=== PATIENT | female | born 2000 | race Caucasian/White ===

== ENCOUNTER 2022-06-16 08:46 | Outpatient (CLI) | payer MEDICAID, SELFPAY ==
[2022-06-16 10:43] LABS: Chloride* 105 mmol/L (96-114)
[2022-06-16 10:44] LABS: Albumin* 4.5 g/dL (3.3-5.0); Potassium* 4.7 mmol/L (3.6-5.1); Sodium* 140 mmol/L (135-149)
[2022-06-16 10:46] LABS: Cholesterol* 114 mg/dL (90-199)
[2022-06-16 10:47] LABS: Alanine Aminotransferase* 25 U/L (4-35); Alkaline Phosphatase* 57 U/L (40-150); Aspartate Amino Transferase* 20 U/L (12-35); Bilirubin Total* 0.7 mg/dL (0.1-1.5); Blood Urea Nitrogen* 15 mg/dL (5-24); Calcium* 9.1 mg/dL (8.4-10.6); Carbon Dioxide* 29 mmol/L (20-32); Creatinine* 0.6 mg/dL (0.5-1.5); Estimated Glomerular Filt Rate 131 ml/min; HDL Cholesterol* 37 mg/dL (>=50); LDL Cholesterol Calculated 58 mg/dL (<100); Triglycerides* 96 mg/dL (40-149)
[2022-06-16 11:03] LABS: Glucose* 88 mg/dL (60-115); Total Protein* 7.2 g/dL (6.0-8.3); Vitamin D 25 Hydroxy* 26 ng/mL (30-80)
[2022-06-16 11:17] LABS: TSH With Reflex to FT4* 0.488 uIU/mL (0.270-4.200)
[2022-06-16 11:21] LABS: Ferritin* 25.4 ng/mL (6.24-137.0)
[2022-06-16 11:37] LABS: Vitamin B12* 725 pg/mL (243-894)
== END 2022-06-16 08:47 | disposition home or self-care (01) ==
PROVIDERS: PCP Family Medicine; Visit Provider Family Medicine
DX: Z01.419 Encounter for gynecological examination (general) (routine) without abnormal findings (principal); R53.83 Other fatigue; D64.9 Anemia, unspecified; E55.9 Vitamin D deficiency, unspecified; D68.51 Activated protein C resistance
CPT/HCPCS: 80053; 80061; 82306; 82607; 82728; 84443

== ENCOUNTER 2022-11-22 10:24 | Outpatient (CLI) | payer MEDICAID, SELFPAY | END 2022-11-22 10:25 | disposition home or self-care (01) | LOC: NFLDREF 10:25 | PROVIDERS: PCP Family Medicine; Visit Provider Advanced Practice Midwife | DX: O20.0 Threatened abortion (principal) | CPT/HCPCS: 84702 ==

== ENCOUNTER 2023-05-06 14:06 | Outpatient (CLI) | payer MEDICAID, SELFPAY | END 2023-05-06 14:07 | disposition home or self-care (01) | PROVIDERS: PCP Family Medicine; Visit Provider Family Medicine | DX: R10.9 Unspecified abdominal pain (principal); R11.2 Nausea with vomiting, unspecified; D68.51 Activated protein C resistance; E55.9 Vitamin D deficiency, unspecified | CPT/HCPCS: 80053; 83516; 84443; 84703; 86364 ==

== ENCOUNTER 2023-05-23 10:08 | Outpatient (CLI) | payer MEDICAID, SELFPAY ==
--- OUTSIDE RECORDS SUMMARY | 2023-05-23 10:40 | XMS_ITS | Clinical Summary ---
Author Name Unknown Organization [facility] Address [place], [place] [address] Care Team Providers Care Oncology Radiation Physician Name Role Phone [place] Primary Care Provider Unavail able Allergies No known active allergies Medications Medication Sig Dispensed Refills Start Date End Date Status ondansetron (ZOFRAN) 4 mg tabletIndications:Rebeca lonephritis Take 2 Tablets (8 mg) by mouth every 8 hours if needed for Nausea/Vomiting. 10 Tablet 0 12/25/2021 Active omeprazole (PRILOSEC) 40 mg Delayed-Release capsule Take 40 mg by mouth. 0 06/07/2022 Active rizatriptan (MAXALT) 10 mg tablet Take 1 Tablet (10 mg) by mouth every 2 hours if needed for Migraine. Give at minimum 2hrs apart. Max Dose: 30mg per 24hrs. 12 Tablet 3 06/30/2022 Active Active Problems Problem Noted Date Diagnosed Date Frequent headaches 02/24/2019 Factor V Leiden 01/05/2011 Overview: Heterozygous Lactose intolerance 12/29/2010 Other acne 12/31/2009 Resolved Problems Problem Noted Date Diagnosed Date Resolved Date Abdominal pain, other specified site 01/05/2010 12/29/2010 WARTS, HAND 07/03/2003 12/29/2010 Encounters Date Type Department Care Team Description 03/25/2023 Lab Requisition [facility] [phone] Harmony Colon MD from Last 3 Months Immunizations Name Administration Dates Next Due DTaP 09/08/2004, 2,02/22/2001,12/23,2000 HIB PRP-OMP (PedvaxHIB) 11/22/2001,11/22,2000,10/12 HIB-HepB (Comvax) 11/22/2001,2000 HPV 9 (Gardasil 9) 02/20/2019 Hepatitis A (Peds) 11/17/2009,12/18/2008 Hepatitis B (Peds) 11/22/2001,2000, 001 Human Papilloma Virus Vaccine 12/25/2012 Inactivated Polio Vaccine 09/08/2004,,2000,10/12 Influenza, IIV3 (Age >=3 years) 03/15/2002 Influenza, IIV4 (=>6mos) MDV 02/19/2019 MMR 09/08/2004,11/22/2001 Meningococcal Vaccine (Menveo) 02/20/2019 Pneumococcal conj 7-Valent (Prevnar 7) 2,2000,2000 Tdap 12/25/2012 Varicella Vaccine 12/18/2008,10/03/2002 Family History Medical History Relation Name Comments Bipolar disorder Brother 1 [place] Thyroid Disease Brother 1 [place] Good Health Brother 2 [place] Good [facility] Father GI Disease Maternal Aunt 1 celiac disea se Blood Disease Maternal Aunt 2 Factor V Le iden deficiency GI Disease Maternal Aunt 3 celiac disea se Asthma Maternal Aunt 4 Factor V Lei den deficiency Other Maternal Grandfather Catarac ts and Glaucoma Blood Disease Maternal Grandmother Factor V leiden deficiency Cancer Maternal Grandmother lymphom a GI Disease Maternal Grandmother celiac disease Autoimmune disease Mother Blood Disease Mother Factor V Leide n GI Disease Mother celiac disease Relation Name Status Comments Brother 1 [place] Alive Brother 2 [place] Alive Father Maternal Aunt 1 Maternal Aunt 2 Maternal Aunt 3 Maternal Aunt 4 Maternal Grandfather Maternal Grandmother Mother Social History Tobacco Use Types Packs/Day Years Used Date Smoking Tobacco: Never Smokeless Tobacco: Never Tobacco Cessation:Counseling Given: Yes Comments:Mom smokes, but outside Alcohol Use Standard Drinks/Week Comments No 0 (1 standard drink = 0.6 oz pur e alcohol) PHQ-2 Answer Date Recorded PHQ-2 Score 1 02/20/2019 Social Connections Answer Date Recorded Frequency of Communication with Friends and Fami ly Not on file 06/30/2022 Sex and Gender Information Value Date Recorded Sex Assigned at Not on file Gender Identity Not on file Sexual Orientation Not on file Obstetrics History Para Term AB IAB SAB Ectopic Multiple Livin g Live Births 0 0 0 0 0 0 0 0 0 0 Last Filed Vital Signs Vital Sign Reading Time Taken Comments Blood Pressure 118/72 06/30/2022 2:37 PM [facility] Pulse 83 06/30/2022 2:37 PM [facility] Temperature 36.9 ??C (98.4 ??F) 12/25/2021 4:00 PM CD T Respiratory Rate 16 12/25/2021 4:00 PM CDT Oxygen Saturation 98% 12/25/2021 4:00 PM CDT Inhaled Oxygen Concentration - - Weight 52.2 kg (115 lb) 06/30/2022 2:37 PM [facility] Height 162.6 cm (5' 4) 12/25/2021 4:00 PM CDT Body Mass Index 19.74 12/25/2021 4:00 PM CDT Plan of Treatment Health Maintenance Due Date Last Done Comments COVID-19 vaccine series (#1) 02/21/2001 HIV for age 15-65 08/23/2015 Hepatitis C screening for ag e 18-79 2018 BMI (ht and wt on same day) for age 18+ 02/21/2020 02/20/2019, 01/31/2019 Depression screening for age 12+ 02/21/2020 02/20/2019 Tetanus booster 12/25/2022 12/25/2012 Influenza for age 9-49 01/07/2023 9, 03/15/2002 Pap test for age 21-65 03/24/2026 03/24/2023 Pneumococcal series for age 6-64 Aged Out 11/22/2001, 2000, 2000 No longer eligible based on patient's age to complete this topic Tdap Completed 12/25/2012 HPV series for age 9-26 Completed 02/21/20 19, 12/25/2012 Procedures Procedure Name Priority Date/Time Associated Diagnosis Comments LAB TRACKING EVENT Routine 03/24/2023 12 :00 PM [facility] COUNTRY DIRECTOR THIN PREP PAP SCREEN IMAGED Routine 03/24/2023 12:00 PM [facility] from Last 3 Months Results * LAB TRACKING EVENT (03/24/2023 12:00 PM [facility]) Other (Other) Client Collect / Unknown 03/24/2023 12:00 PM [facility] 03/25/2023 5:42 PM [facility] Harmony Colon MD LAB [facility] [address] [place] [address], * COUNTRY DIRECTOR THIN PREP PAP SCREEN IMAGED (03/24/2023 12:00 PM [facility]) Case Report Gynecologic Cytology Report ? Case: [id number] ? Authorizing Provider: ??Harmony Colon ?Collected: ? 03/24/2023 1200 ? MD Lennie ? Ordering Location: ? [facility] ?Received: ?03/28/2023 1655 ? First Screen: ?Lisell, Nino ? Specimen: ?COUNTRY DIRECTOR ThinPrep Vial Screening, Cervical ? 04/07/2023 1:26 PM [facility] SeeToo [facility] INTERPRETATION/ RESULT NEGATIVE FOR INTRAEPITHELIAL LESION OR MALIGNANCY (NIL) (none) 04/07/2023 1:26 PM [facility] IMEN ADEQUACY Satisfactory for evaluation Endocervical component present 04/07/2023 1:26 PM [facility] SeeToo [facility] HPV REQUEST HPV not requested 2022 1:26 PM [facility] Date of LMP 03/05/2023 04/07/2023 1:26 PM [facility] Abnormal Pap or [place] Bx in last 5 years No 04/07/2023 1:26 PM [facility] Menstrual Status Irregular Periods 04/07/2023 1:26 PM [facility] [place] Bx Done Today No 04/07/2023 1:26 PM [facility] Additional Information 04/07/2023 1:26 PM [facility] Comment: Interpreted at [facility] - [address] [place] [id number] Automated Review Successful 04/07/2023 1:26 PM [facility] Comment:Specimen processed s uccessfully by automated produce department manager device, ThinPrep Imaging System, [employer] Note The pap test is a screening technique, not a diagnostic procedure. It is used primarily to screen for squamous cancers and precursor lesions. Published studies have shown that it is subject to both false negative and false positive results. The pap test should not be used as the sole means to diagnose or exclude pre-malignant and malignant lesions. 04/07/2023 1:26 PM [facility] Other (Cervical) 03/24/2023 12:00 PM [facility] 03/28/2023 4:55 PM [facility] Harmony Colon MD PATHOLOGY/ CYTOLOGY [facility] [address] [place] [address], [place] from Last 3 Months Care Teams Oncology Radiation Physician Relationship Specialty Start Date End Date Sourav Mehta PCP - General 02/02/20
--- OUTSIDE RECORDS SUMMARY | 2023-05-23 10:41 | XMS_ITS ---
Author Name Unknown Organization [facility] Address [address] [place] [address] Care Team Providers Care Boilermaking Supervisor Name Role Phone Unavailable Unavailable Unavailable Surgery Details Not on file Complications Check Surgery Details section. Procedure Estimated Blood Loss Check Surgery Details section. Procedure Findings Check Surgery Details section. Procedure Specimens Taken Check Surgery Details section.
--- OUTSIDE RECORDS SUMMARY | 2023-05-23 10:41 | XMS_ITS | Encounter Summary ---
Author Name Unknown Organization [facility] Address [address] [place] [address] Care Team Providers Care Rotor Blade Installer Name Role Phone Elsewhere, Pcp Primary Care Provider Unavailabl e Reason for Visit * Reason Onset Date Comments Vomiting/Diarrhea 05/12/2023 Abdominal Pain 05/12/2023 Encounter Details Date Type Department Care Team (Late st Contact Info) Description 05/12/2023 Nurse Triage Department of Family Medicine in [place], [place] [address] [place] [address] Harriet Ignacio R.N. [address] [place] [address] Vomiting/Diarrhea; Abdominal Pain Social History Tobacco Use Types Packs/Day Years Used Date Smoking Tobacco: Never Passive Smoke Exposure: Never Smokeless Tobacco: Never Alcohol Use Standard Drinks/Week Comments No 0 (1 standard drink = 0.6 oz pur e alcohol) Humiliation, Afraid, Rape, and Kick questionnair e Answer Date Recorded Within the last year, have y ou been afraid of your partner or ex-partner? No 07/14/2022 Within the last year, have y ou been humiliated or emotionally abused in other ways by your partner or ex-partner? No Within the last year, have y ou been kicked, hit, slapped, or otherwise physically hurt by your partner or ex-partner? No 07/14/2022 Within the last year, have y ou been raped or forced to have any kind of sexual activity by your partner or ex-partner? No 07/14/2022 Social Connection and Isolat ion Panel [NHANES] Answer Date Recorded In a typical week, how many times do you talk on the phone with family, friends, or neighbors? More than three times a week 07/14/2022 How often do you get togethe r with friends or relatives? Once a week 07/14/2022 How often do you attend chur ch or temple services? Never 07/14/2022 Do you belong to any clubs o r organizations such as anglican groups, unions, fraternal or athletic groups, or school groups? No 07/14/2022 How often do you attend meet ings of the clubs or organizations you belong to? Never 07/14/2022 Are you , , di vorced, , never , or living with a partner? Never 07/14/2022 AUDIT-C Answer Date Recorded Q1: How often do you have a drink containing alc ohol? Monthly or less 07/14/2022 Q2: How many drinks containi ng alcohol do you have on a typical day when you are drinking? 1 or 2 07/14/2022 Q3: How often do you have si x or more drinks on one occasion? Never 07/14/2022 Overall Financial Resource Strain (CARDIA) Answe r Date Recorded How hard is it for you to pa y for the very basics like food, housing, medical care, and heating? Somewhat hard 07/14/2022 [facility] - Occupational Stress Questionnaire Answer Date Recorded Do you feel stress - tense, restless, nervous, or anxious, or unable to sleep at night because your mind is troubled all the time - these days? Only a little 07/14/2022 Exercise Vital Sign Answer Date Recorde d On average, how many days pe r week do you engage in moderate to strenuous exercise (like a brisk walk)? 5 days 07/14/2022 On average, how many minutes do you engage in exercise at this level? 30 min 07/14/2022 Hunger Vital Sign Answer Date Recorded Within the past 12 months, y ou worried that your food would run out before you got the money to buy more. Sometimes true Within the past 12 months, t he food you bought just didn't last and you didn't have money to get more. Sometimes true 12/2022 PRAPARE - Transportation Answer Date Re corded In the past 12 months, has l ack of transportation kept you from medical appointments or from getting medications? No 12/2022 In the past 12 months, has l ack of transportation kept you from meetings, work, or from getting things needed for daily living? No 07/14/2022 Housing Stability Vital Sign Answer Serg e Recorded In the last 12 months, was t here a time when you were not able to pay the mortgage or rent on time? No 07/14/2022 In the last 12 months, how many places have you lived? 1 07/14/2022 In the last 12 months, was t here a time when you did not have a steady place to sleep or slept in a longterm (including now)? No 07/14/2022 Nutrition Answer Date Recorded Nutrition: EVOO Fat Source No 07/14 On average, how many serving s of fruits and vegetables do you eat per day (serving size is equal to 1 cup or approximately the size of a tennis ball)? 2-3 07/14/2022 Dental Answer Date Recorded Dental: Regular Dentist No 07/15/19 Employment Answer Date Recorded Employment status Employed and actively working without restrictions 07/14/2022 Education Answer Date Recorded What is the highest level of school you have completed or the highest degree you have received? 12th grade 07/14/2022 Sex and Gender Information Value Date Recorded Sex Assigned at Not on file Gender Identity Not on file Sexual Orientation Not on file documented as of this encounter Miscellaneous Notes * Telephone Encounter - Harriet Ignacio R.NDedra - 05/12/2023 5:16 AM SKILLS TRAINER Chief Complaint / Reason for Call Patient is a 22 y.o. female calling regarding Vomiting/Diarrhea and Abdominal Pain. Assessment Concern: Moderate to severe abdominal pains for the last couple of days. Vomiting and diarrhea started approximately 2-3 hours ago. Denies visual evidence of blood in stool or emesis. Pain in the current, 10/10 for the last 2- 3 hours. Worse around the umbilicus. Present for: Couple of days of abdominal pain described as 7-8/10. Severe this morning. Home cares tried: Heating pad. Patient reports has not been able to tolerate ibuprofen or tylenol due to causing increased nausea. Calling to request: Advice Patient and caller advised to be seen in the emergency room for severe abdominal pain. Verbal understanding give. The recommended disposition is Go to ED Now. Reason for Disposition [1] SEVERE pain (e.g., excruciating) AND [2] present > 1 hour Protocols used: Abdominal Pain - [id number] Care Advice Patient/Caregiver understands and will follow care advice?: Yes, able to teach back GO TO ED NOW: * You need to be seen in the Emergency Department. * Go to the ED at nearest Hospital. * Leave now. Drive carefully. ANOTHER ADULT SHOULD DRIVE: * It is better and safer if another adult drives instead of you. NOTHING BY MOUTH: * Do not eat or drink anything for now. * Reason: Condition may need surgery and general anesthesia. LS TRAINER documented in this encounter Plan of Treatment Not on file documented as of this encounter Visit Diagnoses Not on filedocumented in this encounter Care Teams Rotor Blade Installer Relationship Specialty Start Date End Date Elsewhere, Pcp PCP - General 08/30/21 documented as of this encounter
--- OUTSIDE RECORDS SUMMARY | 2023-05-23 10:41 | XMS_ITS | Referral Summary ---
Author Name Unknown Organization [facility] Address [address] [place] [address] Care Team Providers Care Social Worker Aide Name Role Phone Elsewhere, Pcp Primary Care Provider Unavailabl e Source Comments Patient records contain information from all sites at [facility]. For routine questions regarding patient records, call [phone] during business hours, M-F 8:00 AM - 5:00 PM Central Time. Record requests for emergency care only can be directed to [phone] at any time.[facility] Encounters Date Type Department Care Team Description 05/12/2023 6:00 AM CRYPTANALYST - 05/12/2023 8:49 AM [facility] Emergency Department [address] [place] [phone] Jonathon Johnson M.D. Gastroenteritis Presumed Infectious (Primary Dx); Nausea And Vomiting Discharge Disposition: Home or Self Care 05/12/2023 Nurse Triage Department of Family Medicine in [place] [address] [place] [phone] Harriet Ignacio RDedraNDedra Vomiting/Diarrhea; Abdominal Pain 04/24/2023 1:17 PM CRYPTANALYST - 04/24/2023 3:02 PM [facility] Emergency [place] [facility] [address] [place] [phone] Benny Cuevas M.D. Abdominal Pain (Primary Dx); Nausea And Vomiting; Leukocytosis Discharge Disposition: Home or Self Care 04/18/2023 5:45 PM CRYPTANALYST - 04/18/2023 8:15 PM [facility] Emergency [place] [facility] [address] [place] [phone] Angela Jarvis M.D., M.B.A. Abdominal Pain (Primary Dx) Discharge Disposition: Home or Self Care from Last 3 Months Allergies Active Allergy Reactions Criticality Noted Date Comments Ondansetron GI intolerance 06/08/2022 ODT and liquid forms only, cause n/v. Tolerates IV and oral pill formulations. Medications Medication Sig Dispensed Refills Start Date End Date Status omeprazole (PriLOSEC) [address] capsule Take 1 capsule (40 mg total) by mouth every morning before breakfast. 30 capsule 2 06/07/2022 Active rizatriptan (MAXALT) 10 mg tablet Take 10 mg by mouth every 2 (two) hours as needed. 0 06/30/2022 Active propranoloL (INDERAL LA) 60 mg 24 hr capsule Take 1 capsule (60 mg total) by mouth daily. 30 capsule 11 07/14/2022 07/14/2023 Active rizatriptan LICENSED PLUMBER (MAXALT-LICENSED PLUMBER) 10 mg disintegrating tablet TAKE 1 TABLET BY MOUTH AT ONSET OF HEADACHE , MAY REPEAT AFTER 2 HOURS MAX2/DAY 0 08/26/2022 Active pantoprazole (PROTONIX) 20 mg EC tablet Take 20 mg by mouth every morning before breakfast. 0 Active pantoprazole (PROTONIX) 40 mg EC tablet Take 1 tablet (40 mg total) by mouth every morning before breakfast for 14 days. 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 Lactose 12/29/2010 Other Acne 12/31/2009 Resolved Problems Problem Noted Date Diagnosed Date Resolved Date Tension Type Headache Unspec ified Not Intractable 02/19/2023 02/19/2023 Activated Protein C Resistance 02/19/2023 02/19/2023 Immunizations Name Administration Dates Next Due 4vHPV (discontinued) 12/25/2012 9vHPV 02/20/2019 DTaP (Infanrix, Tripedia) 09/08/2004,,02/22/2001, 001,2000 HepA Pediatric/Adolescent 11/17/2009,12/18/2008 HepB Pediatric/Adolescent 11/22/2001,2000, 2000 Hib (PRP-OMP) (PedvaxHIB) 11/22/2001,2000, 2000 Hib-HepB 11/22/2001,2000 IPV 09/08/2004, 2,2000, 001 Influenza TIV (IM) 03/15/2002 MCV4 (Menveo) 02/20/2019 MMR 09/08/2004,11/22/2001 PCV7 (discontinued) 11/22/2001,2000,2000 Tdap 12/25/2012 SAYRA 12/18/2008,10/03/2002 influenza vaccine quad (FLUZONE/FLUARIX) (6 months and older)(PF) 02/19/2019 Social History Tobacco Use Types Packs/Day Years Used Date Smoking Tobacco: Never Passive Smoke Exposure: Never Smokeless Tobacco: Never Tobacco Cessation:Counseling Given: Not Answered Alcohol Use Standard Drinks/Week Comments No 0 [...] 07/14/2022 How often do you attend chur or yarsanism services? Never 07/14/2022 Do you belong to any clubs o r organizations such as mandaeism groups, unions, fraternal or athletic groups, or [...] medical care, and heating? Somewhat hard 07/14/2022 [facility] Occupational Stress Questionnaire Answer Date [...] place to sleep or slept in a intermediate (including now)? No 07/14/2022 Nutrition Answer Date [...] on file Sexual Orientation Not on file Last Filed Vital Signs Vital Sign Reading Time Taken Comments Blood Pressure 94/64 05/12/2023 8:38 AM CRYPTANALYST Pulse 87 05/12/2023 8:38 AM CRYPTANALYST Temperature 36.7 ??C (98.1 ??F) 05/12/2023 6:01 AM CS T Respiratory Rate 16 05/12/2023 7:39 AM CRYPTANALYST Oxygen Saturation 99% 05/12/2023 8:38 AM CRYPTANALYST Inhaled Oxygen Concentration - - Weight 52 kg (114 lb 10.2 oz) 05/12/2023 6:50 AM CRYPTANALYST Height 162.6 cm (5' 4) 04/18/2023 5:49 PM CRYPTANALYST Body Mass Index 19.68 04/18/2023 5:49 PM CRYPTANALYST Plan of Treatment Not on file Procedures Procedure Name Priority Date/Time Associated Diagnosis Comments CT ABDOMEN PELVIS WITH IV CONTRAST RAD - Semiurgent (Fast; most ED patients; some inpatients) 05/12/2023 7:13 AM CRYPTANALYST LACTATE, B/P STAT 05/12/2023 6:39 AM CRYPTANALYST LIPASE, S/P STAT 05/12/2023 6:39 AM CRYPTANALYST COMPREHENSIVE METABOLIC PANEL, S/P STAT 05/12/2023 6:39 AM CRYPTANALYST CBC WITH DIFFERENTIAL, B STAT 05/12/2023 6:39 AM CRYPTANALYST HC URINALYSIS AUTO W MICRO STAT 05/12/2023 5:55 AM CRYPTANALYST TEST, POCT, U (LAB) STAT 05/12/2023 5:55 AM CRYPTANALYST URINALYSIS WITH MICROSCOPIC IF INDICATED, U STAT 05/12/2023 5:55 AM CRYPTANALYST LACTATE, B/P STAT 04/24/2023 1:29 PM CRYPTANALYST LIPASE, S/P STAT 04/24/2023 1:29 PM CRYPTANALYST BASIC METABOLIC PANEL, S/P STAT 04/24/2023 1:29 PM CRYPTANALYST CBC WITH DIFFERENTIAL, B STAT 04/24/2023 1:29 PM CRYPTANALYST TEST, POCT, U (LAB) STAT 04/24/2023 1:12 PM CRYPTANALYST HC URINALYSIS AUTO W MICRO STAT 04/24/2023 1:12 PM CRYPTANALYST URINALYSIS WITH MICROSCOPIC IF INDICATED, U STAT 04/24/2023 1:12 PM CRYPTANALYST LIPASE, S/P STAT 04/18/2023 6:31 PM CRYPTANALYST CBC WITH DIFFERENTIAL, B STAT 04/18/2023 6:31 PM CRYPTANALYST COMPREHENSIVE METABOLIC PANEL, S/P STAT 04/18/2023 6:31 PM CRYPTANALYST TEST, POCT, U (LAB) STAT 04/18/2023 5:30 PM CRYPTANALYST HC URINALYSIS AUTO W MICRO STAT 04/18/2023 5:30 PM CRYPTANALYST URINALYSIS WITH MICROSCOPIC IF INDICATED, U STAT 04/18/2023 5:30 PM CRYPTANALYST from Last 3 Months Results * CT Abdomen Pelvis with IV Contrast (05/12/2023 7:13 AM CRYPTANALYST) Anatomical Region Laterality Modality Abdomen, Pelvis, Abdominal R ST LOS, Abdominal ARZ LOS, Abdominal FLA LOS N/A Computed Tomography 05/12/2023 7:16 AM CRYPTANALYST Impressions 05/12/2023 7:39 AM CRYPTANALYST Mild fluid distention of loops of bowel in the pelvis could indicate nonspecific enteritis or ileus. No other acute abnormality Narrative 05/12/2023 7:39 AM CRYPTANALYST EXAM: CT ABDOMEN PELVIS WITH IV CONTRAST COMPARISON: None FINDINGS: Normal liver, gallbladder, adrenal glands, kidneys, spleen, and pancreas. Mild fluid distention of several loops of small bowel in the pelvis measuring up to 2.0 cm. No discrete transition point or findings of perforation or ischemia. Remainder of the small bowel and colon including the appendix is unremarkable. Trace pelvic fluid could be reactive or physiologic. Procedure Note Harish Bee M.D. - 05/12/2023 EXAM: CT ABDOMEN PELVIS WITH IV CONTRAST COMPARISON: None FINDINGS: Normal liver, gallbladder, adrenal glands, kidneys, spleen, andpancreas. Mild fluid distention of several loops of small bowel in thepelvis measuring up to 2.0 cm. No discrete transition point or findings ofperforation or ischemia. Remainder of the small bowel and colon including the appendix is unremarkable.Trace pelvic fluid could be reactive or physiologic. IMPRESSION: Mild fluid distention of loops of bowel in the pelvis could indicatenonspecific enteritis or ileus. No other acute abnormality Jonathon Johnson M.D. Du CT PROCEDURES * (ABNORMAL) CBC with Differential, Blood (05/12/2023 6:39 AM CRYPTANALYST) Only the most recent of3 resultswithin the time period is included. Hemoglobin 12.7 11.6 - 15.0 g/dL 05/12/2023 6:49 AM CRYPTANALYST NPRG Hematocrit 37.9 35.5 - 44.9 % 05/12/2023 6:49 AM CRYPTANALYST NPRG Erythrocytes 4.20 3.92 - 5.13 x10(12)/L 05/12/2023 6:49 AM CRYPTANALYST NPRG MCV 90.2 78.2 - 97.9 fL 05/12/2023 6:49 AM CRYPTANALYST NPRG RBC Distrib Width 12.1(L) 12.2 - 16.1 % 05/12/2023 6:49 AM CRYPTANALYST NPRG Platelet Count 184 157 - 371 x10(9)/L 05/12/2023 6:49 AM CRYPTANALYST NPRG Leukocytes 12.0(H) 3.4 - 9.6 x10(9)/L 05/12/2023 6:49 AM CRYPTANALYST NPRG Neutrophils 10.54(H) 1.56 - 6.45 x10(9)/L 05/12/2023 6:49 AM CRYPTANALYST NPRG Lymphocytes 0.68(L) 0.95 - 3.07 x10(9)/L 05/12/2023 6:49 AM CRYPTANALYST NPRG Monocytes 0.74 0.26 - 0.81 x10(9)/L 05/12/2023 6:49 AM CRYPTANALYST NPRG Eosinophils 0.04 0.03 - 0.48 x10(9)/L 05/12/2023 6:49 AM CRYPTANALYST NPRG Basophils 0.01 0.01 - 0.08 x10(9)/L 05/12/2023 6:49 AM CRYPTANALYST NPRG Blood (Blood, Venous) 05/12/2023 6:39 AM CRYPTANALYST 05/12/2023 6:41 AM CRYPTANALYST Jonathon Johnson M.D. LAB BLOOD ADD-ON [facility] [address] [place] [address], [place] [address] [address] [place] [address] * Lipase (05/12/2023 6:39 AM CRYPTANALYST) Only the most recent of3 resultswithin the time period is included. Lipase, P 16 13 - 60 U/L 05/12/2023 7: 07 AM CRYPTANALYST NPRG Blood (Blood, Venous) 05/12/2023 6:39 AM CRYPTANALYST 05/12/2023 6:41 AM CRYPTANALYST Jonathon Johnson M.D. LAB BLOOD ADD-ON Performing Organization Address City/[facility] Co de Phone Number [facility] [address] [place] [address], [address] [address] * Lactate (05/12/2023 6:39 AM CRYPTANALYST) Only the most recent of2 resultswithin the time period is included. Lactate, P 0.7 0.5 - 2.2 mmol/L 05/12/2023 7:03 AM CRYPTANALYST NPR Blood (Blood, Venous) 05/12/2023 6:39 AM CRYPTANALYST 05/12/2023 6:41 AM CRYPTANALYST Jonathon Johnson M.D. LAB BLOOD NON ADD-ON [facility] [address] [place] [address], [address] [address] * Comprehensive Metabolic Panel (05/12/2023 6:39 AM CRYPTANALYST) Only the most recent of2 resultswithin the time period is included. Potassium, P 4.1 3.6 - 5.2 mmol/L 05/12/2023 7:07 AM CRYPTANALYST NPRG Sodium, P 139 135 - 145 mmol/L 05/12/2023 7:07 AM CRYPTANALYST NPRG Chloride, P 104 98 - 107 mmol/L 05/12/2023 7:07 AM CRYPTANALYST NPRG Bicarbonate, P 24 22 - 29 mmol/L 05/12/2023 7:07 AM CRYPTANALYST NPRG Anion Gap, P 11 7 - 15 05/12/2023 7:07 AM CRYPTANALYST NPRG BUN (Blood Urea Nitrogen), P 11 6 - 21 mg/dL 05/12/2023 7:07 AM CRYPTANALYST NPRG Creatinine 0.69 0.59 - 1.04 mg/dL 05/12/2023 7:07 AM CRYPTANALYST NPRG Estimated GFR (eGFR) >90 >=60 mL/min/BS A 05/12/2023 7:07 AM CRYPTANALYST NPRG Comment: Estimated GFR calculated using the 2020 CKD_EPI creatinine equation. Calcium, Total, P 9.3 8.6 - 10.0 mg/dL 05/12/2023 7:07 AM CRYPTANALYST NPRG Glucose, P 99 70 - 140 mg/dL 05/12/2023 7:07 AM CRYPTANALYST NPRG Protein, Total, P 6.7 6.3 - 7.9 g/dL 05/12/2023 7:07 AM CRYPTANALYST NPRG Albumin, P 4.5 3.5 - 5.0 g/dL 05/12/2023 7:07 AM CRYPTANALYST NPRG Aspartate Aminotransferase (AST), P 22 8 - 43 U/L 05/12/2023 7:07 AM CRYPTANALYST NPRG Alkaline Phosphatase, P 68 35 - 104 U/L 05/12/2023 7:07 AM CRYPTANALYST NPRG Alanine Aminotransferase (ALT), P 18 7 - 45 U/L 05/12/2023 7:07 AM CRYPTANALYST NPRG Bilirubin, Total, P 1.1 0.0 - 1.2 mg/dL 05/12/2023 7:07 AM CRYPTANALYST NPRG Blood (Blood, Venous) 05/12/2023 6:39 AM CRYPTANALYST 05/12/2023 6:41 AM CRYPTANALYST [place] M.D. LAB BLOOD ADD-ON [facility] [address] [place] [address], [place] NPRG [facility] [address] [place] [address] * (ABNORMAL) Urinalysis with Microscopic if Indicated (05/12/2023 5:55 AM CRYPTANALYST) Only the most recent of3 resultswithin the time period is included. Source Urine, Urine, Midstream 05/12/2023 5:58 AM CRYPTANALYST NPRG Clarity Clear Clear 05/12/2023 6:02 AM CRYPTANALYST NPRG Color Yellow 05/12/2023 6:02 AM CRYPTANALYST NPRG Comment: ----REFERENCE VALUE---- Colorless Yellow Kelly Blood Trace(A) Negative 05/12/2023 6:02 AM CRYPTANALYST NPRG Nitrite Negative Negative 05/12/2023 6:02 AM CRYPTANALYST NPRG Leukocyte Esterase Trace(A) Negative 05/12/2023 6:02 AM CRYPTANALYST NPRG Protein 30(A) mg/dL 05/12/2023 6:02 AM CRYPTANALYST NPRG Comment: ----REFERENCE VALUE---- Negative Trace Glucose Negative Negative mg/dL 05/12/2023 6:02 AM CRYPTANALYST NPRG Ketones, QI(U) Trace(A) Negative mg/dL 05/12/2023 6:02 AM CRYPTANALYST NPRG Bilirubin Negative Negative 05/12/2023 6:02 AM CRYPTANALYST NPRG pH 6.0 5.0 - 8.0 05/12/2023 6:02 AM CRYPTANALYST NPRG Specific [place] 1.025 1.001 - 1.035 05/12/2023 6:02 AM CRYPTANALYST NPRG Urobilinogen 0.2 0.2 - 1.0 mg/dL 05/12/2023 6:02 AM CRYPTANALYST NPRG Urine (Urine, Midstream) 05/12/2023 5:55 AM CRYPTANALYST 05/12/2023 5:57 AM CRYPTANALYST Jonathon Johnson M.D. LAB URINE ORDERABLES [facility] [address] [place] [address], [place] NPRG [place] [address] [address] [place] [address] * (ABNORMAL) Microscopic Manual (05/12/2023 5:55 AM CRYPTANALYST) Only the most recent of3 resultswithin the time period is included. White Blood Cells 4-10 /hpf 05/12/2023 6:14 AM CRYPTANALYST NPRG Comment: ----REFERENCE VALUE---- Males: 0-3 Females: 0-10 Unknown: 0-10 Red Blood Cells Occ-2 0 - 2 /hpf 05/12/2023 6:14 AM CRYPTANALYST NPRG Squamous Cells 11-20 /hpf 05/12/2023 6:14 AM CRYPTANALYST NPRG Bacteria Present(A) None Seen 05/12/2023 6:14 AM CRYPTANALYST NPRG Urine 05/12/2023 5:55 AM CRYPTANALYST 05/12/2023 5:57 AM CRYPTANALYST Soft Results Interface LAB URINE ORDERAB LES Performing Organization Address City/[facility]/ZIP Co de Phone Number [facility] [address] [place] [address], [facility] NPRG [place] [address] [address] [place] [address] * Test, POCT, Urine (Lab) (05/12/2023 5:55 AM CRYPTANALYST) Only the most recent of3 resultswithin the time period is included. Test, POCT, U Negative 05/12/2023 6:11 AM CRYPTANALYST NPRG Urine (Urine, Midstream) 05/12/2023 5:55 AM CRYPTANALYST 05/12/2023 5:57 AM CRYPTANALYST Jonathon Johnson M.D. LAB POCT ORDERABLES - DEVICE Performing Organization Address City/[facility]/ZIP Co de Phone Number [facility] [address] [place] [address], [place] NPR[place] [address] [address] [place] [address] * Basic Metabolic Panel (04/24/2023 1:29 PM CRYPTANALYST) Potassium, P 4.0 3.6 - 5.2 mmol/L 04/24/2023 2:09 PM CRYPTANALYST NPRG Sodium, P 138 135 - 145 mmol/L 04/24/2023 2:09 PM CRYPTANALYST NPRG Chloride, P 105 98 - 107 mmol/L 04/24/2023 2:09 PM CRYPTANALYST NPRG Bicarbonate, P 23 22 - 29 mmol/L 04/24/2023 2:09 PM CRYPTANALYST NPRG Anion Gap, P 10 7 - 15 04/24/2023 2:09 PM CRYPTANALYST NPRG BUN (Blood Urea Nitrogen), P 11 6 - 21 mg/dL 04/24/2023 2:09 PM CRYPTANALYST NPRG Creatinine 0.66 0.59 - 1.04 mg/dL 04/24/2023 2:09 PM CRYPTANALYST NPRG Estimated GFR (eGFR) >90 >=60 mL/min/BSA 04/24/2023 2:09 PM CRYPTANALYST NPRG Comment: Estimated GFR calculated using the 2020 CKD_EPI creatinine equation. Calcium, Total, P 8.8 8.6 - 10.0 mg/dL 04/24/2023 2:09 PM CRYPTANALYST NPRG Glucose, P 112 70 - 140 mg/dL 04/24/2023 2:09 PM CRYPTANALYST NPRG Blood (Blood, Venous) 04/24/2023 1:29 PM CRYPTANALYST 04/24/2023 1:31 PM CRYPTANALYST Benny Cuevas M.D. LAB BLOOD ADD-ON [facility] [address] [place] [address], [place] NPR[facility] [address] [place] [address] from Last 3 Months Care Teams Social Worker Aide Relationship Specialty Start Date End Date Elsewhere, Pcp PCP - General 08/30/21
--- OUTSIDE RECORDS SUMMARY | 2023-05-23 10:41 | XMS_ITS | Encounter Summary ---
Author Name Unknown Organization [facility] Address [address] [place] [address] Care Team Providers Care Excel Expert Name Role Phone Elsewhere, Pcp Primary Care Provider Unavailabl e Reason for Visit * Reason Comments Abdominal Pain Pt presents to ED wi th complaints of generalized abdominal pain, nausea, vomiting, and diarrhea that started last night around 2300. She took zofran last at 0000. She otherwise denies taking any other symptoms relief medications. She denies fevers. Encounter Details Date Type Department Care Team (Late st Contact Info) Description 05/12/2023 6:00 AM [facility] - 05/12/2023 8:49 AM [facility] Emergency [place] [facility] [address] [place] [phone] Jonathon Johnson M.D. [address] [place] [phone] Gastroenteritis Presumed Infectious (Primary Dx); Nausea And Vomiting Discharge Disposition: Home or Self Care Social History Tobacco Use Types Packs/Day Years [...] How often do you attend chur or worship services? Never 07/14/2022 Do you belong to any clubs o r organizations such as tenriism groups, unions, fraternal or athletic groups, or [...] medical care, and heating? Somewhat hard 07/14/2022 [facility] - Occupational [...] place to sleep or slept in a penitentiary (including now)? No 07/14/2022 Nutrition Answer Date [...] on file documented as of this encounter Last Filed Vital Signs Vital Sign Reading Time Taken Comments Blood Pressure 94/64 05/12/2023 8:38 AM [facility] Pulse 87 05/12/2023 8:38 AM [facility] Temperature 36.7 ??C (98.1 ??F) 05/12/2023 6:01 AM CS T Respiratory Rate 16 05/12/2023 7:39 AM [facility] Oxygen Saturation 99% 05/12/2023 8:38 AM [facility] Inhaled Oxygen Concentration - - Weight 52 kg (114 lb 10.2 oz) 05/12/2023 6:50 AM [facility] Height - - Body Mass Index 19.68 04/18/2023 5:49 PM [facility] documented in this encounter Discharge Instructions * Discharge Instructions* Jonathon Johnson M.D. - 05/12/2023 8:12 AM [facility] Continue with your nausea medication at home. If you are able to tolerate oral intake, ibuprofen and Tylenol should be safe. Worse case scenario swallowing anything solid makes your nausea worse, butit would not be strictly dangerous. If your stomach is feeling okay I would give it a shot. Fluids in the most important, try to stay well hydrated as this can make the other symptoms more tolerable as well. Plan to follow-up for your colonoscopy as scheduled, otherwise the ER or your PCP if worsening symptoms. [facility] * Attachments The following attachments cannot be sent through Care Everywhere. * Viral Gastroenteritis Adult (Irish) documented in this encounter Medications at Time of Discharge Medication Sig Dispensed Refills Start Date End Date propranoloL (INDERAL LA) 60 mg 24 hr capsule Take 1 capsule (60 mg total) by mouth daily. 30 capsule 11 07/14/2022 07/14/2023 rizatriptan (MAXALT) 10 mg tablet Take 10 mg by mouth every 2 (two) hours as needed. 0 06/30/2022 rizatriptan RESPIRATORY CARE SPECIALIST (MAXALT-RESPIRATORY CARE SPECIALIST) 10 mg disintegrating tablet TAKE 1 TABLET BY MOUTH AT ONSET OF HEADACHE , MAY REPEAT AFTER 2 HOURS MAX2/DAY 0 08/26/2022 documented as of this encounter ED Notes * Jonathon Johnson M.D. - 05/12/2023 6:18 AM CST [facility] Department of Emergency Medicine- [place] 05/12/2023 8:13 AM [facility] *Encounter labs and radiology results at the end of this note* Chief Complaint Patient presents with Abdominal Pain Pt presents to ED with complaints of generalized abdominal pain, nausea, vomiting, and diarrhea that started last night around 2300. She took zofran last at 0000. She otherwise denies taking any other symptoms relief medications. She denies fevers. PCP: ELSEWHERE, PCP HPI: Deanna Garcia is a 22 y.o. year old woman with a history of migraine, GERD, vitamin-D deficiency, presenting with persistent abdominal pain that has been intermittently present for the last 2-3weeks, however worse since last night at about 23:00. She has not been able to tolerate ibuprofen or Tylenol as this tends to make her nausea worse. Zofran is tolerated but only partially effective. She has also a beyond having diarrhea in addition to the nausea and vomiting and abdominal pain and cramping. Denies any fevers or chills. Able to tolerate oral fluids and she states she urinated about seven or 8 times yesterday. Significant generalized malaise and fatigue though able to perform ADLs. No history of intra-abdominal surgeries. No urinary symptoms. No blood in the stool or vomit. No other acute complaints or concerns. A complete review of systems was obtained and negative except as in the HPI. No alcohol, tobacco, or illicit drugs. PHYSICAL EXAMINATION General: Ill but nontoxic-appearing in mild acute distress. HEENT: Head is normocephalic and atraumatic. Hearing and vision are grossly normal. No scleral icterus, jaundice, or pallor. Neck: Supple, with normal range of motion. Heart: Heart rate is normal and regular, no murmurs. Lungs: Clear to auscultation bilaterally, no wheezes or rales. Abdomen: Soft, mild diffuse tenderness, most prominent in the epigastrium and periumbilical region,no rebound, negative Forrest sign, nondistended. Skin: Warm and well-perfused Neurologic: GCS 15. Moving all 4 extremities spontaneously. Speech clear. Psychiatric: Normal mood and affect. Differential diagnosis includes gastroenteritis, gallbladder disease, hepatitis, peptic ulcer disease, gastritis, GERD, appendicitis, bowel obstruction, diverticulitis, enteritis, dehydration, electrolyte abnormality. MDM: 22-year-old woman presenting with persistent abdominal pain over the last three weeks, now worsening after a period of slight improvement. She is scheduled for colonoscopy in about a week and a half which is advantageous. Labs are reassuring with trace leukocytosis but otherwise reassuring. Urine is clean but does suggest mild dehydration. Lactate is normal and lipase is normal ruling out pancreatitis. Symptoms improved somewhat with multimodal analgesia and IV fluids. CT scan of the abdomen pelvis was obtained which is negative for any acute pathology aside from an enteritis picture. She was able to tolerate p.o. and feels sufficient to discharge home. Work note provided discharge home with expectant management for likely gastroenteritis. 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 There is also a high community burden of multiple viral diseases. Final Diagnoses: as of 05/12/23812 Gastroenteritis Presumed Infectious Nausea And Vomiting Vitals: 05/12/23 0645 05/12/23 0650 05/12/23 0700 05/12/23 0739 BP: 116/68 111/64 107/55 Pulse: 88 81 Resp: 16 Temp: TempSrc: SpO2: 95% 98% Weight: 52 kg Medications sodium chloride 0.9 % injection 2-10 mL (has no administration in time range) NaCl 0.9 % bolus 1,000 mL (1,000 mL intravenous New Bag 05/12/23 0641) ketorolac injection 15 mg (TORADOL) (15 mg intravenous Given 05/12/2340) morphine injection 4 mg (4 mg intravenous Given 05/12/2340) ondansetron (PF) injection 4 mg (ZOFRAN) (4 mg intravenous Given 05/12/2340) sodium chloride 0.9 % injection 10 mL (10 mL intravenous Given 05/12/23 0717) sodium chloride 0.9 % flush 100 mL (100 mL intravenous Given 05/12/2316) iohexoL 300 mg iodine/mL solution 1-200 mL (OMNIPAQUE) (100 mL intravenous Given 05/12/2316) Clinical Impression: Final diagnoses: [A09] Gastroenteritis Presumed Infectious [R11.2] Nausea And Vomiting Disposition: Discharge ED Prescriptions None Labs Reviewed URINALYSIS WITH MICROSCOPIC IF INDICATED, U - Abnormal Result Value Source Urine, Urine, Midstream Clarity Clear Color Yellow Blood Trace (*) Nitrite Negative Leukocyte Esterase Trace (*) Protein 30 (*) Glucose Negative Ketones, QI(U) Trace (*) Bilirubin Negative pH 6.0 Specific [place] 1.025 Urobilinogen 0.2 MICROSCOPIC MANUAL - Abnormal White Blood Cells 4-10 Red Blood Cells Occ-2 Squamous Cells 11-20 Bacteria Present (*) CBC WITH DIFFERENTIAL, B - Abnormal Hemoglobin 12.7 Hematocrit 37.9 Erythrocytes 4.20 MCV 90.2 RBC Distrib Width 12.1 (*) Platelet Count 184 Leukocytes 12.0 (*) Neutrophils 10.54 (*) Lymphocytes 0.68 (*) Monocytes 0.74 Eosinophils 0.04 Basophils 0.01 TEST, POCT, U (LAB) Test, POCT, U Negative COMPREHENSIVE METABOLIC PANEL, S/P Potassium, P 4.1 Sodium, P 139 Chloride, P 104 Bicarbonate, P 24 Anion Gap, P 11 BUN (Blood Urea Nitrogen), P 11 Creatinine 0.69 Estimated GFR (eGFR) >90 Calcium, Total, P 9.3 Glucose, P 99 Protein, Total, P 6.7 Albumin, P 4.5 Aspartate Aminotransferase (AST), P 22 Alkaline Phosphatase, P 68 Alanine Aminotransferase (ALT), P 18 Bilirubin, Total, P 1.1 LIPASE, S/P Lipase, P 16 LACTATE, B/P Lactate, P 0.7 CT Abdomen Pelvis with IV Contrast Final Result Mild fluid distention of loops of bowel in the pelvis could indicate nonspecific enteritis or ileus. No other acute abnormality Jonathon Johnson M.D. 05/12/23 0817 [facility] documented in this encounter Plan of Treatment Not on file documented as of this encounter Procedures Procedure Name Priority Date/Time Associated Diagnosis Comments CT ABDOMEN PELVIS WITH IV CONTRAST RAD - Semiurgent (Fast; most ED patients; some inpatients) 05/12/2023 7:13 AM [facility] CBC WITH DIFFERENTIAL, B STAT 05/12/2023 6:39 AM [facility] LIPASE, S/P STAT 05/12/2023 6:39 AM [facility] LACTATE, B/P STAT 05/12/2023 6:39 AM [facility] COMPREHENSIVE METABOLIC PANEL, S/P STAT 05/12/2023 6:39 AM [facility] URINALYSIS WITH MICROSCOPIC IF INDICATED, U STAT 05/12/2023 5:55 AM [facility] HC URINALYSIS AUTO W MICRO STAT 05/12/2023 5:55 AM [facility] TEST, POCT, U (LAB) STAT 05/12/2023 5:55 AM [facility] documented in this encounter Results * CT Abdomen Pelvis with IV Contrast (05/12/2023 7:13 AM [facility]) Anatomical Region Laterality Modality Abdomen, Pelvis, Abdominal R ST LOS, Abdominal ARZ LOS, Abdominal FLA LOS N/A Computed Tomography 05/12/2023 7:16 AM [facility] Impressions 05/12/2023 7:39 AM [facility] Mild fluid distention of loops of bowel in the pelvis could indicate nonspecific enteritis or ileus. No other acute abnormality Narrative 05/12/2023 7:39 AM [facility] EXAM: CT ABDOMEN PELVIS WITH IV CONTRAST [...] No other acute abnormality Jonathon Johnson M.D. IMG CT PROCEDURES * Lactate (05/12/2023 6:39 AM [facility]) Lactate, P 0.7 0.5 - 2.2 mmol/L 05/12/2023 7:03 AM [facility] NPRG Blood (Blood, Venous) 05/12/2023 6:39 AM [facility] 05/12/2023 6:41 AM [facility] Jonathon Johnson M.D. LAB BLOOD NON ADD-ON Performing Organization Address City/[facility]/ZIP Co de Phone Number [facility] [address] [place] [address], [facility] NPRG [address] [address] * Lipase (05/12/2023 6:39 AM [facility]) Lipase, P 16 13 - 60 U/L 05/12/2023 7: 07 AM [facility] NPRG Blood (Blood, Venous) 05/12/2023 6:39 AM [facility] 05/12/2023 6:41 AM [facility] Jonathon Johnson M.D. LAB BLOOD ADD-ON Performing Organization Address [facility] Co de Phone Number [facility] [address] [place] [address], [address] [address] * Comprehensive Metabolic Panel (05/12/2023 6:39 AM [facility]) Potassium, P 4.1 3.6 - 5.2 mmol/L 05/12/2023 7:07 AM [facility] NPRG Sodium, P 139 135 - 145 mmol/L 05/12/2023 7:07 AM [facility] NPRG Chloride, P 104 98 - 107 mmol/L 05/12/2023 7:07 AM [facility] NPRG Bicarbonate, P 24 22 - 29 mmol/L 05/12/2023 7:07 AM [facility] NPRG Anion Gap, P 11 7 - 15 05/12/2023 7:07 AM [facility] NPRG BUN (Blood Urea Nitrogen), P 11 6 - 21 mg/dL 05/12/2023 7:07 AM [facility] NPRG Creatinine 0.69 0.59 - 1.04 mg/dL 05/12/2023 7:07 AM [facility] NPRG Estimated GFR (eGFR) >90 >=60 mL/min/BS A 05/12/2023 7:07 AM [facility] NPRG Comment: Estimated GFR calculated using the 2020 CKD_EPI creatinine equation. Calcium, Total, P 9.3 8.6 - 10.0 mg/dL 05/12/2023 7:07 AM [facility] NPRG Glucose, P 99 70 - 140 mg/dL 05/12/2023 7:07 AM [facility] NPRG Protein, Total, P 6.7 6.3 - 7.9 g/dL 05/12/2023 7:07 AM [facility] NPRG Albumin, P 4.5 3.5 - 5.0 g/dL 05/12/2023 7:07 AM [facility] NPRG Aspartate Aminotransferase (AST), P 22 8 - 43 U/L 05/12/2023 7:07 AM [facility] NPRG Alkaline Phosphatase, P 68 35 - 104 U/L 05/12/2023 7:07 AM [facility] NPRG Alanine Aminotransferase (ALT), P 18 7 - 45 U/L 05/12/2023 7:07 AM [facility] NPRG Bilirubin, Total, P 1.1 0.0 - 1.2 mg/dL 05/12/2023 7:07 AM [facility] NPRG Blood (Blood, Venous) 05/12/2023 6:39 AM [facility] 05/12/2023 6:41 AM [facility] Jonathon Johnson M.D. LAB BLOOD ADD-ON [facility] [address] [place] [address], [facility] NPRG [facility] [address] [place] [address] * (ABNORMAL) CBC with Differential, Blood (05/12/2023 6:39 AM [facility]) Hemoglobin 12.7 11.6 - 15.0 g/dL 05/12/2023 6:49 AM [facility] NPRG Hematocrit 37.9 35.5 - 44.9 % 05/12/2023 6:49 AM [facility] NPRG Erythrocytes 4.20 3.92 - 5.13 x10(12)/L 05/12/2023 6:49 AM [facility] NPRG MCV 90.2 78.2 - 97.9 fL 05/12/2023 6:49 AM [facility] NPRG RBC Distrib Width 12.1(L) 12.2 - 16.1 % 05/12/2023 6:49 AM [facility] NPRG Platelet Count 184 157 - 371 x10(9)/L 05/12/2023 6:49 AM [facility] NPRG Leukocytes 12.0(H) 3.4 - 9.6 x10(9)/L 05/12/2023 6:49 AM [facility] NPRG Neutrophils 10.54(H) 1.56 - 6.45 x10(9)/L 05/12/2023 6:49 AM [facility] NPRG Lymphocytes 0.68(L) 0.95 - 3.07 x10(9)/L 05/12/2023 6:49 AM [facility] NPRG Monocytes 0.74 0.26 - 0.81 x10(9)/L 05/12/2023 6:49 AM [facility] NPRG Eosinophils 0.04 0.03 - 0.48 x10(9)/L 05/12/2023 6:49 AM [facility] NPRG Basophils 0.01 0.01 - 0.08 x10(9)/L 05/12/2023 6:49 AM [facility] NPRG Blood (Blood, Venous) 05/12/2023 6:39 AM [facility] 05/12/2023 6:41 AM [facility] Jonathon Johnson M.D. LAB BLOOD ADD-ON [facility] [address] [place] [address], [facility] NPRG [facility] [address] [place] [address] * (ABNORMAL) Microscopic Manual (05/12/2023 5:55 AM [facility]) White Blood Cells 4-10 /hpf 05/12/2023 6:14 AM [facility] NPRG Comment: ----REFERENCE VALUE---- Males: 0-3 Females: 0-10 Unknown: 0-10 Red Blood Cells Occ-2 0 - 2 /hpf 05/12/2023 6:14 AM [facility] NPRG Squamous Cells 11-20 /hpf 05/12/2023 6:14 AM [facility] NPRG Bacteria Present(A) None Seen 05/12/2023 6:14 AM [facility] NPRG Urine 05/12/2023 5:55 AM [facility] 05/12/2023 5:57 AM [facility] Soft Results Interface LAB URINE ORDERAB LES Performing Organization Address [facility] Co de Phone Number [facility] [address] [place] [address], [facility] NPRG [address] [address] * Test, POCT, Urine (Lab) (05/12/2023 5:55 AM [facility]) Test, POCT, U Negative 05/12/2023 6:11 AM [facility] NPRG Urine (Urine, Midstream) 05/12/2023 5:55 AM [facility] 05/12/2023 5:57 AM [facility] Jonathon Johnson M.D. LAB POCT ORDERABLES - DEVICE Performing Organization Address [facility] Co de Phone Number [facility] [address] [place] [address], [place] NPRG [address] [address] * (ABNORMAL) Urinalysis with Microscopic if Indicated (05/12/2023 5:55 AM [facility]) Source Urine, Urine, Midstream 05/12/2023 5:58 AM [facility] NPRG Clarity Clear Clear 05/12/2023 6:02 AM [facility] NPRG Color Yellow 05/12/2023 6:02 AM [facility] NPRG Comment: ----REFERENCE VALUE---- Colorless Yellow Kelly Blood Trace(A) Negative 05/12/2023 6:02 AM [facility] NPRG Nitrite Negative Negative 05/12/2023 6:02 AM [facility] NPRG Leukocyte Esterase Trace(A) Negative 05/12/2023 6:02 AM [facility] NPRG Protein 30(A) mg/dL 05/12/2023 6:02 AM [facility] NPRG Comment: ----REFERENCE VALUE---- Negative Trace Glucose Negative Negative mg/dL 05/12/2023 6:02 AM [facility] NPRG Ketones, QI(U) Trace(A) Negative mg/dL 05/12/2023 6:02 AM [facility] NPRG Bilirubin Negative Negative 05/12/2023 6:02 AM [facility] NPRG pH 6.0 5.0 - 8.0 05/12/2023 6:02 AM [facility] NPRG Specific [place] 1.025 1.001 - 1.035 05/12/2023 6:02 AM [facility] NPRG Urobilinogen 0.2 0.2 - 1.0 mg/dL 05/12/2023 6:02 AM [facility] NPRG Urine (Urine, Midstream) 05/12/2023 5:55 AM [facility] 05/12/2023 5:57 AM [facility] Jonathon Johnson M.D. LAB URINE ORDERABLES [facility] [address] [place] [address], [facility] NPRG [facility] [address] [place] [address] documented in this encounter Visit Diagnoses Diagnosis Gastroenteritis Presumed Infectious- Primary Nausea And Vomiting documented in this encounter Administered Medications Inactive Administered Medications - up to 3 most recent administrations Medication Order MAR Action Action Date Dose Rate Site iohexoL 300 mg iodine/mL solution 1-200 mL (OMNIPAQUE) 1-200 mL, intravenous, Once in imaging, contrast, Starting on Vera 05/12/23 at 0704, For 1 dose, Dose per Radiant Medication Guidelines Given 05/12/2023 7:16 AM [facility] 100 mL ketorolac injection 15 mg (TORADOL) 15 mg, intravenous, Once, On Vera 05/12/23 at 0631, For 1 dose, Adult IV push rate: Over 15 seconds. Peds IV push rate: Over 1 minute. Doses > 15 mg IV/IM are discouraged due to lack of additional analgesic benefit. Given 05/12/2023 6:40 AM [facility] 15 mg morphine injection 4 mg 4 mg, intravenous, Once, On Vera 05/12/23 at 0631, For 1 dose Given 05/12/2023 6:40 AM [facility] 4 mg NaCl 0.9 % bolus 1,000 mL 1,000 mL, intravenous, at 1,000 mL/hr, Administer over 1 Hours, Once, On Vera 05/12/23 at 0631, For 1 dose New Bag 05/12/2023 6:41 AM [facility] 1,000 mL 1000 mL/hr ondansetron (PF) injection 4 mg (ZOFRAN) 4 mg, intravenous, Once as needed, nausea, vomiting, Starting on Vera 05/12/23 at 0630, For 1 dose Given 05/12/2023 6:40 AM [facility] 4 mg sodium chloride 0.9 % flush 100 mL 100 mL, intravenous, Once in imaging, line care, for CT Exam, Starting on Vera 05/12/23 at 0704, For 1 dose Given 05/12/2023 7:16 AM [facility] 100 mL sodium chloride 0.9 % injection 10 mL 10 mL, intravenous, Once in imaging, line care, Starting on Vera 05/12/23 at 0704, For 1 dose Given 05/12/2023 7:17 AM [facility] 10 mL sodium chloride 0.9 % injection 2-10 mL 2-10 mL, intravenous, As needed, line care, Starting on Vera 05/12/23 at 0629 documented in this encounter Active and Recently Administered Medications Times are shown in [facility]. Scheduled Medication Order 05/10/2023 05/11/2023 05/12/2023 ketorolac injection 15 mg (TORADOL) (COMPLETED) 15 mg, intravenous, Once, On Vera 05/12/23 at 0631, For 1 dose, Adult IV push rate: Over 15 seconds. Peds IV push rate: Over 1 minute. Doses > 15 mg IV/IM are discouraged due to lack of additional analgesic benefit. 0640 (Given - Provid er: Kady Chester, R.N.) morphine injection 4 mg (COMPLETED) 4 mg, intravenous, Once, On Vera 05/12/23 at 0631, For 1 dose 0640 (Given - Provid er: Kady Chester, R.N.) NaCl 0.9 % bolus 1,000 mL (COMPLETED) 1,000 mL, intravenous, at 1,000 mL/hr, Administer over 1 Hours, Once, On Vera 05/12/23 at 0631, For 1 dose 0641 (New Bag - Prov ider: Kady Chester R.N.)[id number] (Stopped - Provider: Denisse Morgan R.N.) PRN Medication Order 05/10/2023 05/11/2023 05/12/2023 iohexoL 300 mg iodine/mL solution 1-200 mL (OMNIPAQUE) (COMPLETED) 1-200 mL, intravenous, Once in imaging, contrast, Starting on Vera 05/12/23 at 0704, For 1 dose, Dose per Radiant Medication Guidelines 0716 (Given - Provid er: Harry Browne.(R)(CT), R.T.(R)) ondansetron (PF) injection 4 mg (ZOFRAN) (COMPLETED) 4 mg, intravenous, Once as needed, nausea, vomiting, Starting on Vera 05/12/23 at 0630, For 1 dose 0640 (Given - Provid er: Kady Chester R.N.) sodium chloride 0.9 % flush 100 mL (COMPLETED) 100 mL, intravenous, Once in imaging, line care, for CT Exam, Starting on Vera 05/12/23 at 0704, For 1 dose 0716 (Given - Provid er: Aleja Browne.T.(R)(CT), R.T.(R)) sodium chloride 0.9 % injection 10 mL (COMPLETED) 10 mL, intravenous, Once in imaging, line care, Starting on Vera 05/12/23 at 0704, For 1 dose 0717 (Given - Provid er: Aleja Browne.T.(R)(CT), R.T.(R)) sodium chloride 0.9 % injection 2-10 mL(Linked Group 1) 2-10 mL, intravenous, As needed, line care, Starting on Vera 05/12/23 at 0629 Linked Groups Order Group 1: Place peripheral IV: No upper extremity site restrictions (CANCELED) Upper extremity site restriction: No upper extremity site restrictions, Quantity of PIVs requested: One, STAT, Once, On Vera 05/12/23 at 0630, For 1 occurrence And sodium chloride 0.9 % injection 2-10 mLJump to med 2-10 mL, intravenous, As needed, line care, Starting on Vera 05/12/23 at 0629 documented in this encounter Care Teams Excel Expert Relationship Specialty Start Date End Date Elsewhere, Pcp PCP - General 08/30/21 documented as of this encounter
--- OUTSIDE RECORDS SUMMARY | 2023-05-23 10:41 | XMS_ITS | Encounter Summary ---
Author Name Unknown Organization [facility] Address [address] [place] [address] Care Team Providers Care Dry Kiln Operator Helper Name Role Phone Elsewhere, Pcp Primary Care Provider Unavailabl e Reason for Visit * Reason Comments Abdominal Pain Pt presents with wor sening mid/umbilical pain since she was evaluated on Tuesday. New onset of diarrhea in last 24hrs. Encounter Details Date Type Department Care Team (Late st Contact Info) Description 04/24/2023 1:17 PM STAFF NURSE ANESTHETIST - 04/24/2023 3:02 PM [facility] [address] [place] [address] Benny Cuevas M.D. [address] [place] [address] Abdominal Pain (Primary Dx); Nausea And Vomiting; Leukocytosis Discharge Disposition: Home or Self Care Social [...] often do you attend chur ch or judaism services? Never 07/14/2022 Do you belong to any clubs o r organizations such as denominational groups, unions, fraternal or athletic groups, or [...] medical care, and heating? Somewhat hard 07/14/2022 [facility] - Occupational [...] place to sleep or slept in a correction (including now)? No 07/14/2022 Nutrition Answer Date [...] Sign Reading Time Taken Comments Blood Pressure 111/64 04/24/2023 2:45 PM STAFF NURSE ANESTHETIST Pulse 78 04/24/2023 2:48 PM STAFF NURSE ANESTHETIST Temperature 36.9 ??C (98.4 ??F) 04/24/2023 1:15 PM CS T Respiratory Rate 18 04/24/2023 2:48 PM STAFF NURSE ANESTHETIST Oxygen Saturation 98% 04/24/2023 2:48 PM STAFF NURSE ANESTHETIST Inhaled Oxygen Concentration - - Weight 50 kg (110 lb 3.7 oz) 04/24/2023 1:13 PM STAFF NURSE ANESTHETIST Height - - Body Mass Index 18.92 04/18/2023 5:49 PM STAFF NURSE ANESTHETIST documented in this encounter Discharge Instructions * Discharge Instructions* Benny Cuevas M.D. - 04/24/2023 2:52 PM STAFF NURSE ANESTHETIST You can also take ibuprofen 400 mg every 6 hours and acetaminophen 650 mg every 6 hours for the pain. You may alternate these so that you are able to take something every 3 hours, but still keep 6 hours between doses of the same medication. F NURSE ANESTHETIST * Attachments The following attachments cannot be sent through Care Everywhere. * Abdominal Pain Adult (Icelandic) documented in this encounter Medications at Time of Discharge Medication Sig Dispensed Refills Start Date End Date propranoloL (INDERAL LA) 60 mg 24 hr capsule Take 1 capsule (60 mg total) by mouth daily. 30 capsule 11 07/14/2022 07/14/2023 rizatriptan (MAXALT) 10 mg tablet Take 10 mg by mouth every 2 (two) hours as needed. 0 06/30/2022 rizatriptan HOOKER INSPECTOR (MAXALT-HOOKER INSPECTOR) 10 mg disintegrating tablet TAKE 1 TABLET BY MOUTH AT ONSET OF HEADACHE , MAY REPEAT AFTER 2 HOURS MAX2/DAY 0 08/26/2022 pantoprazole (PROTONIX) 40 mg EC tablet Take 1 tablet (40 mg total) by mouth every morning before breakfast for 14 days. 14 tablet 0 04/18/2023 05/02/2023 documented as of this encounter ED Notes * Benny Cuevas M.D. - 04/24/2023 2:53 PM CST CHIEF COMPLAINT/REASON FOR VISIT (RN note) Abdominal Pain (Pt presents with worsening mid/umbilical pain since she was evaluated on Tuesday. New onset of diarrhea in last 24hrs.) HISTORY OF PRESENT ILLNESS Deanna Garcia is a 22 y.o. female who presents to the ED for evaluation of periumbilical/mid abdominal discomfort. She also had nausea but no vomiting and now diarrhea. She states that the abdominalpain seems to accompany her diarrhea. She has been seen several times over the past few years here in the emergency department and followed with Gastroenterology where she did have an upper endoscopyabout two years ago. She had H pylori when she was 9 years old. She has not had a colonoscopy but states that she was supposed to and does not know why never happened. [facility]. Her last menstrual period was almost three weeks ago. She has Zofran at home for nausea that has not been helping. She is not taken any other analgesia because of her nausea and she states that any other medications make her vomit. She denies alcohol use or cannabis/THC. No other drug use. She rates her pain at 3/10 describes it as an aching pain in the middle of her abdomen without radiation. Mother states that there is a family history of Crohn's, IBD, celiac disease. She has had a but no other abdominal surgeries. Past medical history: Reviewed in the EMR. Agree with nursing documentation. Pertinent past medical history noted per HPI. Past Medical History: Diagnosis Date Factor V Leiden Family History Patient Active Problem List Diagnosis Activated Protein C Resistance (HCC) Headache Unspecified Intolerance Lactose Other Acne Migraine Headache Classic Occipital Neuralgia Migraine With Aura Not Intractable Without Status Migrainosus Migraine Without Aura Not Intractable Without Status Migrainosus Gastroesophageal Reflux Disease NOS Dyshidrosis Deficiency Vitamin D Anemia Complicating Unspecified Trimester (HCC) Family history: History reviewed as per HPI Social history: Reviewed in the EMR. Agree with nursing documentation. Pertinent social history noted per HPI. Social History Tobacco Use Smoking status: Never Passive exposure: Never Smokeless tobacco: Never Vaping Use Vaping Use: never used Substance Use Topics Alcohol use: No Drug use: No REVIEW OF SYSTEMS Constitutional: As noted in the HPI, otherwise negative. Eyes: As noted in the HPI, otherwise negative. HEENT: As noted in the HPI, otherwise negative. CV: As noted in the HPI, otherwise negative. Resp: As noted in the HPI, otherwise negative. GI: As noted in the HPI, otherwise negative. : As noted in the HPI, otherwise negative. MSK: As noted in the HPI, otherwise negative. Skin: As noted in the HPI, otherwise negative. Neuro: As noted in the HPI, otherwise negative. PHYSICAL EXAMINATION Initial Vitals [04/24/23 1315] Temperature 36.9 ??C Pulse Rate 86 Heart Rate Resp Rate 12 Blood Pressure (!) 149/122 SpO2 97 % Pain Score 3 General: Awake, alert, oriented x3. No apparent distress. BP elevated initially. Head: Normocephalic, atraumatic. Eyes: Normal sclerae and conjunctivae, extraocular movements intact. ENT: Oropharynx is clear, moist mucus membranes. Neck: Supple, full range of motion, trachea midline. Heart: Normal rate. Lungs: No respiratory distress. Abd: Soft, very mild periumbilical tenderness without rebound or guarding and no other tenderness throughout the abdomen. Specifically, no epigastric tenderness and negative Forrest sign. No right lower quadrant tenderness. Nondistended. Back: Normal to inspection, nontender, no costovertebral angle tenderness. Ext: Warm, well-perfused. Skin: Warm, dry, normal color. No rashes. Neuro: Awake, alert, GCS 15, cranial nerves II-XII grossly intact, normal strength/sensation x4 without focal deficits. Psych: Normal affect, concentration, and judgment. MEDICAL DECISION MAKING / ED COURSE: Differential diagnoses: IBS, UTI, versus ectopic , I do not suspect gastritis, kidney stone, hepatobiliary disease, pancreatitis, appendicitis, ovarian torsion or cysts 22-year-old female comes to the emergency department complaining of periumbilical abdominal pain. Her labs are all reassuring except for some leukocytosis. She was just seen here last week and thought to have gastritis. This presentation is a bit different with lower abdominal pain associated with d iarrhea. She received Toradol and Compazine as well as a L of IV fluids here in the ED with some improvement but I have encouraged her to follow up this week with either her primary care doctor or the GI clinic where she has been seen in the past. She understands reasons to return to the ED immediately. I did consider advanced imaging such as a CT scan or a prescription for stronger opiate analgesia but felt that it was not indicated. -- Nursing documentation and prior records reviewed in the medical record. -- External documents reviewed. -- I personally reviewed by visualization, interpreted, and discussed with the patient the results of labs as reported in the medical record. Medications ketorolac injection 15 mg (TORADOL) (15 mg intravenous Given 04/24/23 1448) prochlorperazine injection 10 mg (COMPAZINE) (10 mg intravenous Given 04/24/231447) NaCl 0.9 % bolus 1,000 mL (0 mL intravenous Stopped 04/24/23 0851) FINAL DIAGNOSIS: 1. Abdominal Pain 2. Nausea And Vomiting ED Disposition Discharge DIAGNOSTIC RESULTS Labs Reviewed URINALYSIS WITH MICROSCOPIC IF INDICATED, U - Abnormal Result Value Source Urine, Urine, Midstream Clarity Clear Color Yellow Blood Trace (*) Nitrite Negative Leukocyte Esterase Negative Protein Negative Glucose Negative Ketones, QI(U) Negative Bilirubin Negative pH 6.0 Specific Marathon 1.025 Urobilinogen 0.2 CBC WITH DIFFERENTIAL, B - Abnormal Hemoglobin 13.4 Hematocrit 39.5 Erythrocytes 4.41 MCV 89.6 RBC Distrib Width 12.5 Platelet Count 287 Leukocytes 11.9 (*) Neutrophils 9.38 (*) Lymphocytes 1.81 Monocytes 0.61 Eosinophils 0.08 Basophils 0.03 MICROSCOPIC MANUAL - Abnormal White Blood Cells Occ-3 Red Blood Cells Occ-2 Dysmorphic Red Blood Cells <=25 Squamous Cells Occ-3 Bacteria Present (*) BASIC METABOLIC PANEL, S/P Potassium, P 4.0 Sodium, P 138 Chloride, P 105 Bicarbonate, P 23 Anion Gap, P 10 BUN (Blood Urea Nitrogen), P 11 Creatinine 0.66 Estimated GFR (eGFR) >90 Calcium, Total, P 8.8 Glucose, P 112 LIPASE, S/P Lipase, P 21 LACTATE, B/P Lactate, P 0.7 TEST, POCT, U (LAB) Test, POCT, U Negative Benny Cuevas M.D. 04/24/23 0865 F NURSE ANESTHETIST documented in this encounter Plan of Treatment Not on file documented as of this encounter Procedures Procedure Name Priority Date/Time Associated Diagnosis Comments CBC WITH DIFFERENTIAL, B STAT 04/24/2023 1:29 PM STAFF NURSE ANESTHETIST LIPASE, S/P STAT 04/24/2023 1:29 PM STAFF NURSE ANESTHETIST LACTATE, B/P STAT 04/24/2023 1:29 PM STAFF NURSE ANESTHETIST BASIC METABOLIC PANEL, S/P STAT 04/24/2023 1:29 PM STAFF NURSE ANESTHETIST URINALYSIS WITH MICROSCOPIC IF INDICATED, U STAT 04/24/2023 1:12 PM STAFF NURSE ANESTHETIST HC URINALYSIS AUTO W MICRO STAT 04/24/2023 1:12 PM STAFF NURSE ANESTHETIST TEST, POCT, U (LAB) STAT 04/24/2023 1:12 PM STAFF NURSE ANESTHETIST documented in this encounter Results * Lactate (04/24/2023 1:29 PM STAFF NURSE ANESTHETIST) Lactate, P 0.7 0.5 - 2.2 mmol/L 04/24/2023 2:06 PM STAFF NURSE ANESTHETIST NPRG Blood (Blood, Venous) 04/24/2023 1:29 PM STAFF NURSE ANESTHETIST 04/24/2023 1:31 PM STAFF NURSE ANESTHETIST Benny Cuevas M.D. LAB BLOOD NON ADD-O N [facility] [address] [place] [address], [place] [address] [place] [address] * Lipase (04/24/2023 1:29 PM STAFF NURSE ANESTHETIST) Pathologist [facility] Lipase, P 21 13 - 60 U/L 04/24/2023 2: 09 PM STAFF NURSE ANESTHETIST NPRG Blood (Blood, Venous) 04/24/2023 1:29 PM STAFF NURSE ANESTHETIST 04/24/2023 1:31 PM STAFF NURSE ANESTHETIST Benny Cuevas M.D. LAB BLOOD ADD-ON [facility] [address] [place] [address], [place] [address] [place] [address] * Basic Metabolic Panel (04/24/2023 1:29 PM STAFF NURSE ANESTHETIST) Potassium, P 4.0 3.6 - 5.2 mmol/L 04/24/2023 2:09 PM STAFF NURSE ANESTHETIST NPRG Sodium, P 138 135 - 145 mmol/L 04/24/2023 2:09 PM STAFF NURSE ANESTHETIST NPRG Chloride, P 105 98 - 107 mmol/L 04/24/2023 2:09 PM STAFF NURSE ANESTHETIST NPRG Bicarbonate, P 23 22 - 29 mmol/L 04/24/2023 2:09 PM STAFF NURSE ANESTHETIST NPRG Anion Gap, P 10 7 - 15 04/24/2023 2:09 PM STAFF NURSE ANESTHETIST NPRG BUN (Blood Urea Nitrogen), P 11 6 - 21 mg/dL 04/24/2023 2:09 PM STAFF NURSE ANESTHETIST NPRG Creatinine 0.66 0.59 - 1.04 mg/dL 04/24/2023 2:09 PM STAFF NURSE ANESTHETIST NPRG Estimated GFR (eGFR) >90 >=60 mL/min/BSA 04/24/2023 2:09 PM STAFF NURSE ANESTHETIST NPR[facility] Comment: Estimated GFR calculated using the 2020 CKD_EPI creatinine equation. Calcium, Total, P 8.8 8.6 - 10.0 mg/dL 04/24/2023 2:09 PM STAFF NURSE ANESTHETIST NPRG Glucose, P 112 70 - 140 mg/dL 04/24/2023 2:09 PM STAFF NURSE ANESTHETIST NPRG Blood (Blood, Venous) 04/24/2023 1:29 PM STAFF NURSE ANESTHETIST 04/24/2023 1:31 PM STAFF NURSE ANESTHETIST Benny Cuevas M.D. LAB BLOOD ADD-ON [facility] [address] [place] [address], [facility] NPRG [facility] [address] [place] [address] * (ABNORMAL) CBC with Differential, Blood (04/24/2023 1:29 PM STAFF NURSE ANESTHETIST) Hemoglobin 13.4 11.6 - 15.0 g/dL 04/24/2023 2:05 PM STAFF NURSE ANESTHETIST NPRG Hematocrit 39.5 35.5 - 44.9 % 04/24/2023 2:05 PM STAFF NURSE ANESTHETIST NPRG Erythrocytes 4.41 3.92 - 5.13 x10(12)/L 04/24/2023 2:05 PM STAFF NURSE ANESTHETIST NPR[facility] MCV 89.6 78.2 - 97.9 fL 04/24/2023 2:05 PM STAFF NURSE ANESTHETIST NPRG RBC Distrib Width 12.5 12.2 - 16.1 % 04/24/2023 2:05 PM STAFF NURSE ANESTHETIST NPRG Platelet Count 287 157 - 371 x10(9)/L 04/24/2023 2:05 PM STAFF NURSE ANESTHETIST NPRG Leukocytes 11.9(H) 3.4 - 9.6 x10(9)/L 04/24/2023 2:05 PM STAFF NURSE ANESTHETIST NPRG Neutrophils 9.38(H) 1.56 - 6.45 x10(9)/L 04/24/2023 2:05 PM STAFF NURSE ANESTHETIST NPR[facility] Lymphocytes 1.81 0.95 - 3.07 x10(9)/L 04/24/2023 2:05 PM STAFF NURSE ANESTHETIST NPRG Monocytes 0.61 0.26 - 0.81 x10(9)/L 04/24/2023 2:05 PM STAFF NURSE ANESTHETIST NPRG Eosinophils 0.08 0.03 - 0.48 x10(9)/L 04/24/2023 2:05 PM STAFF NURSE ANESTHETIST NPRG Basophils 0.03 0.01 - 0.08 x10(9)/L 04/24/2023 2:05 PM STAFF NURSE ANESTHETIST NPRG Blood (Blood, Venous) 04/24/2023 1:29 PM STAFF NURSE ANESTHETIST 04/24/2023 1:31 PM STAFF NURSE ANESTHETIST Benny Cuevas M.D. LAB BLOOD ADD-ON [facility] [address] [place] [address], [facility] NPRG [facility] [address] [place] [address] * Test, POCT, Urine (Lab) (04/24/2023 1:12 PM STAFF NURSE ANESTHETIST) Test, POCT, U Negative 04/24/2023 3:12 PM STAFF NURSE ANESTHETIST NPRG Urine (Urine, Midstream) 04/24/2023 1:12 PM STAFF NURSE ANESTHETIST 04/24/2023 3:03 PM STAFF NURSE ANESTHETIST Benny Cuevas M.D. LAB POCT ORDERABLES - DEVICE Performing Organization Address City/[facility]/ZIP Co de Phone Number [facility] [address] [place] [address], [place] NPRG [address] [address] * (ABNORMAL) Microscopic Manual (04/24/2023 1:12 PM STAFF NURSE ANESTHETIST) White Blood Cells Occ-3 /hpf 04/24/2023 2:09 PM STAFF NURSE ANESTHETIST NPRG Comment: ----REFERENCE VALUE---- Males: 0-3 Females: 0-10 Unknown: 0-10 Red Blood Cells Occ-2 0 - 2 /hpf 2:09 PM STAFF NURSE ANESTHETIST NPRG Dysmorphic Red Blood Cells <=25 <=25 % 04/24/2023 2:09 PM STAFF NURSE ANESTHETIST NPRG Squamous Cells Occ-3 /hpf 04/24/2023 2:09 PM STAFF NURSE ANESTHETIST NPRG Bacteria Present(A) None Seen 04/24/2023 2:09 PM STAFF NURSE ANESTHETIST NPRG Urine 04/24/2023 1:12 PM STAFF NURSE ANESTHETIST 04/24/2023 1:55 PM STAFF NURSE ANESTHETIST Benny Cuevas M.D. LAB URINE ORDERABLE S Performing Organization Address [facility] Co de Phone Number [facility] [address] [place] [phone], [facility] NPRG [address] [address] * (ABNORMAL) Urinalysis with Microscopic if Indicated (04/24/2023 1:12 PM STAFF NURSE ANESTHETIST) Source Urine, Urine, Midstream 04/24/2023 1:55 PM STAFF NURSE ANESTHETIST NPRG Clarity Clear Clear 04/24/2023 1:58 PM STAFF NURSE ANESTHETIST NPRG Color Yellow 04/24/2023 1:58 PM STAFF NURSE ANESTHETIST NPRG Comment: ----REFERENCE VALUE---- Colorless Yellow Kelly Blood Trace(A) Negative 04/24/2023 1:58 PM STAFF NURSE ANESTHETIST NPRG Nitrite Negative Negative 04/24/2023 1:58 PM STAFF NURSE ANESTHETIST NPRG Leukocyte Esterase Negative Negative 04/24/2023 1:58 PM STAFF NURSE ANESTHETIST NPRG Protein Negative mg/dL 04/24/2023 1:58 PM STAFF NURSE ANESTHETIST NPRG Comment: ----REFERENCE VALUE---- Negative Trace Glucose Negative Negative mg/dL 04/24/2023 1:58 PM STAFF NURSE ANESTHETIST NPRG Ketones, QI(U) Negative Negative mg/dL 04/24/2023 1:58 PM STAFF NURSE ANESTHETIST NPRG Bilirubin Negative Negative 04/24/2023 1:58 PM STAFF NURSE ANESTHETIST NPRG pH 6.0 5.0 - 8.0 04/24/2023 1:58 PM STAFF NURSE ANESTHETIST NPRG Specific Marathon 1.025 1.001 - 1.035 04/24/2023 1:58 PM STAFF NURSE ANESTHETIST NPRG Urobilinogen 0.2 0.2 - 1.0 mg/dL 04/24/2023 1:58 PM STAFF NURSE ANESTHETIST NPRG Urine (Urine, Midstream) 04/24/2023 1:12 PM STAFF NURSE ANESTHETIST 04/24/2023 1:55 PM STAFF NURSE ANESTHETIST Benny Cuevas M.D. LAB URINE ORDERABLE S [facility] [address] [place] [address], [facility] NPRG [facility] [address] [place] [address] documented in this encounter Visit Diagnoses Diagnosis Abdominal Pain- Primary Nausea And Vomiting Leukocytosis documented in this encounter Administered Medications Inactive Administered Medications - up to 3 most recent administrations Medication Order MAR Action Action Date Dose Rate Site ketorolac injection 15 mg (TORADOL) 15 mg, intravenous, Once, On 04/24/23 at 1438, For 1 dose, Adult IV push rate: Over 15 seconds. Peds IV push rate: Over 1 minute. Doses > 15 mg IV/IM are discouraged due to lack of additional analgesic benefit. Given 04/24/2023 2:48 PM STAFF NURSE ANESTHETIST 15 mg NaCl 0.9 % bolus 1,000 mL 1,000 mL, intravenous, at 1,000 mL/hr, Administer over 1 Hours, Once, On 04/24/23 at 1438, For 1 dose New Bag 04/24/2023 1:48 PM STAFF NURSE ANESTHETIST 1,000 mL 1000 mL/hr prochlorperazine injection 10 mg (COMPAZINE) 10 mg, intravenous, Once, On 04/24/23 at 1438, For 1 dose Given 04/24/2023 2:48 PM STAFF NURSE ANESTHETIST 10 mg documented in this encounter Active and Recently Administered Medications Times are shown in STAFF NURSE ANESTHETIST. Scheduled Medication Order 04/22/2023 04/23/2023 04/24/2023 ketorolac injection 15 mg (TORADOL) (COMPLETED) 15 mg, intravenous, Once, On 04/24/23 at 1438, For 1 dose, Adult IV push rate: Over 15 seconds. Peds IV push rate: Over 1 minute. Doses > 15 mg IV/IM are discouraged due to lack of additional analgesic benefit. 1448 (Given - Provid er: Ting Ortiz R.N.) NaCl 0.9 % bolus 1,000 mL (COMPLETED) 1,000 mL, intravenous, at 1,000 mL/hr, Administer over 1 Hours, Once, On 04/24/23 at 1438, For 1 dose 1348 (New Bag - Prov ider: Tushar EdgarN.)1449 (Stopped - Provider: Ting Ortiz R.N.) prochlorperazine injection 10 mg (COMPAZINE) (COMPLETED) 10 mg, intravenous, Once, On 04/24/23 at 1438, For 1 dose 1448 (Given - Provid er: Ting Ortiz R.N.) documented in this encounter Care Teams Dry Kiln Operator Helper Relationship Specialty Start Date End Date Elsewhere, Pcp PCP - General 08/30/21 documented as of this encounter
--- OUTSIDE RECORDS SUMMARY | 2023-05-23 10:41 | XMS_ITS | Clinical Summary ---
Author Name Unknown Organization [facility] Address [address] [place] [address] Care Team Providers Care Assistant Press Operator Name Role Phone Elsewhere, Pcp Primary Care Provider Unavailabl e Source Comments Patient records contain information from all sites at [facility]. For routine questions regarding patient records, call [phone] during business hours, M-F 8:00 AM - 5:00 PM Central Time. 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 Gastroenteritis Presumed Infectious (Primary Dx); Nausea And Vomiting Discharge Disposition: Home or Self Care 05/12/2023 Nurse Triage Department of Family Medicine in [place], [place] [address] [place] [phone] Harriet Ignacio, R.N. Vomiting/Diarrhea; Abdominal Pain 04/24/2023 1:17 PM COPY CHIEF - 04/24/2023 3:02 PM [facility] Emergency Department [address] [place] [phone] Benny Cuevas M.D. Abdominal Pain (Primary Dx); Nausea And Vomiting; Leukocytosis Discharge Disposition: Home or Self Care 04/18/2023 5:45 PM COPY CHIEF - 04/18/2023 8:15 PM [facility] Emergency Department [address] [place] [phone] Angela Jarvis M.D., M.B.A. Abdominal Pain (Primary Dx) Discharge Disposition: Home or Self Care from Last 3 Months Immunizations Name Administration Dates Next Due 4vHPV [...] How often do you attend chur or taoist services? Never 07/14/2022 Do you belong to any clubs o r organizations such as anabaptist groups, unions, fraternal or athletic groups, or [...] medical care, and heating? Somewhat hard 07/14/2022 [facility]ational Stress Questionnaire Answer Date [...] Comments Blood Pressure 94/64 05/12/2023 8:38 AM COPY CHIEF Pulse 87 05/12/2023 8:38 AM COPY CHIEF Temperature 36.7 ??C (98.1 ??F) 05/12/2023 6:01 AM CS T Respiratory Rate 16 05/12/2023 7:39 AM COPY CHIEF Oxygen Saturation 99% 05/12/2023 8:38 AM COPY CHIEF Inhaled Oxygen Concentration - - Weight 52 kg (114 lb 10.2 oz) 05/12/2023 6:50 AM COPY CHIEF Height 162.6 cm (5' 4) 04/18/2023 5:49 PM COPY CHIEF Body Mass Index 19.68 04/18/2023 5:49 PM COPY CHIEF Plan of Treatment Health Maintenance Due Date Last Done Comments Chlamydia and Gonorrhea Screening 2000 HIV Screening 2000 Hepatitis C Screening 2000 COVID-19 Vaccine (#1) 02/21/2001 Influenza Vaccine (#1) 2023 9, 02/19/2019, 03/15/2002, Additional history exists Depression Screening (Annual PHQ-2) 05/09/2023 Cervical Cancer Screening 03/24/2026 03/24/2023 DTaP,Tdap,and Td Vaccines (8 - Td or Tdap) 11/28/2029 11/29/2019, 12/25/2012, 09/08/2004, Additional history exists Hepatitis B Vaccines Completed 11/22/2001, 11/22/2001, 2000, Additional history exists Pneumococcal vaccine (0-64 years) Aged Out 11/22/2001, 2000, 2000 No longer eligible based on patient's age to complete this topic HPV Vaccines Completed 02/20/2019, 12/07, 12/25/2012 Meningococcal Vaccine Completed 02/20/2019, 019 Procedures Procedure Name Priority Date/Time Associated Diagnosis Comments CT ABDOMEN PELVIS WITH IV CONTRAST RAD - Semiurgent (Fast; most ED patients; some inpatients) 05/12/2023 7:13 AM COPY CHIEF LACTATE, B/P STAT 05/12/2023 6:39 AM COPY CHIEF LIPASE, S/P STAT 05/12/2023 6:39 AM COPY CHIEF COMPREHENSIVE METABOLIC PANEL, S/P STAT 05/12/2023 6:39 AM COPY CHIEF CBC WITH DIFFERENTIAL, B STAT 05/12/2023 6:39 AM COPY CHIEF HC URINALYSIS AUTO W MICRO STAT 05/12/2023 5:55 AM COPY CHIEF TEST, POCT, U (LAB) STAT 05/12/2023 5:55 AM COPY CHIEF URINALYSIS WITH MICROSCOPIC IF INDICATED, U STAT 05/12/2023 5:55 AM COPY CHIEF LACTATE, B/P STAT 04/24/2023 1:29 PM COPY CHIEF LIPASE, S/P STAT 04/24/2023 1:29 PM COPY CHIEF BASIC METABOLIC PANEL, S/P STAT 04/24/2023 1:29 PM COPY CHIEF CBC WITH DIFFERENTIAL, B STAT 04/24/2023 1:29 PM COPY CHIEF TEST, POCT, U (LAB) STAT 04/24/2023 1:12 PM COPY CHIEF HC URINALYSIS AUTO W MICRO STAT 04/24/2023 1:12 PM COPY CHIEF URINALYSIS WITH MICROSCOPIC IF INDICATED, U STAT 04/24/2023 1:12 PM COPY CHIEF LIPASE, S/P STAT 04/18/2023 6:31 PM COPY CHIEF CBC WITH DIFFERENTIAL, B STAT 04/18/2023 6:31 PM COPY CHIEF COMPREHENSIVE METABOLIC PANEL, S/P STAT 04/18/2023 6:31 PM COPY CHIEF TEST, POCT, U (LAB) STAT 04/18/2023 5:30 PM COPY CHIEF HC URINALYSIS AUTO W MICRO STAT 04/18/2023 5:30 PM COPY CHIEF URINALYSIS WITH MICROSCOPIC IF INDICATED, U STAT 04/18/2023 5:30 PM COPY CHIEF from Last 3 Months Results * CT Abdomen Pelvis with IV Contrast (05/12/2023 7:13 AM COPY CHIEF) Anatomical Region Laterality Modality Abdomen, Pelvis, Abdominal R ST LOS, Abdominal ARZ LOS, Abdominal FLA LOS N/A Computed Tomography 05/12/2023 7:16 AM COPY CHIEF Impressions 05/12/2023 7:39 AM COPY CHIEF Mild fluid distention of loops of bowel in the pelvis could indicate nonspecific enteritis or ileus. No other acute abnormality Narrative 05/12/2023 7:39 AM COPY CHIEF EXAM: CT ABDOMEN PELVIS WITH IV CONTRAST [...] CBC with Differential, Blood (05/12/2023 6:39 AM COPY CHIEF) Only the most recent of3 resultswithin the time period is included. Hemoglobin 12.7 11.6 - 15.0 g/dL 05/12/2023 6:49 AM COPY CHIEF NPRG Hematocrit 37.9 35.5 - 44.9 % 05/12/2023 6:49 AM COPY CHIEF NPRG Erythrocytes 4.20 3.92 - 5.13 x10(12)/L 05/12/2023 6:49 AM COPY CHIEF NPRG MCV 90.2 78.2 - 97.9 fL 05/12/2023 6:49 AM COPY CHIEF NPRG RBC Distrib Width 12.1(L) 12.2 - 16.1 % 05/12/2023 6:49 AM COPY CHIEF NPRG Platelet Count 184 157 - 371 x10(9)/L 05/12/2023 6:49 AM COPY CHIEF NPRG Leukocytes 12.0(H) 3.4 - 9.6 x10(9)/L 05/12/2023 6:49 AM COPY CHIEF NPRG Neutrophils 10.54(H) 1.56 - 6.45 x10(9)/L 05/12/2023 6:49 AM COPY CHIEF NPRG Lymphocytes 0.68(L) 0.95 - 3.07 x10(9)/L 05/12/2023 6:49 AM COPY CHIEF NPRG Monocytes 0.74 0.26 - 0.81 x10(9)/L 05/12/2023 6:49 AM COPY CHIEF NPRG Eosinophils 0.04 0.03 - 0.48 x10(9)/L 05/12/2023 6:49 AM COPY CHIEF NPRG Basophils 0.01 0.01 - 0.08 x10(9)/L 05/12/2023 6:49 AM COPY CHIEF NPRG Blood (Blood, Venous) 05/12/2023 6:39 AM COPY CHIEF 05/12/2023 6:41 AM COPY CHIEF Jonathon Johnson M.D. LAB BLOOD ADD-ON [facility] [address] [place] [address], [place] [facility] [address] [place] [address] * Lipase (05/12/2023 6:39 AM COPY CHIEF) Only the most recent of3 resultswithin the time period is included. Lipase, P 16 13 - 60 U/L 05/12/2023 7: 07 AM COPY CHIEF NPRG Blood (Blood, Venous) 05/12/2023 6:39 AM COPY CHIEF 05/12/2023 6:41 AM COPY CHIEF Jonathon Johnson M.D. LAB BLOOD ADD-ON [facility] [address] [place] [address], [place] [facility] [address] [address] * Lactate (05/12/2023 6:39 AM COPY CHIEF) Only the most recent of2 resultswithin the time period is included. Lactate, P 0.7 0.5 - 2.2 mmol/L 05/12/2023 7:03 AM COPY CHIEF NPRG Blood (Blood, Venous) 05/12/2023 6:39 AM COPY CHIEF 05/12/2023 6:41 AM COPY CHIEF Jonathon Johnson M.D. LAB BLOOD NON ADD-ON [facility] [address] [place] [id number], [place] [facility] [address] [address] * Comprehensive Metabolic Panel (05/12/2023 6:39 AM COPY CHIEF) Only the most recent of2 resultswithin the time period is included. Potassium, P 4.1 3.6 - 5.2 mmol/L 05/12/2023 7:07 AM COPY CHIEF NPRG Sodium, P 139 135 - 145 mmol/L 05/12/2023 7:07 AM COPY CHIEF NPRG Chloride, P 104 98 - 107 mmol/L 05/12/2023 7:07 AM COPY CHIEF NPRG Bicarbonate, P 24 22 - 29 mmol/L 05/12/2023 7:07 AM COPY CHIEF NPRG Anion Gap, P 11 7 - 15 05/12/2023 7:07 AM COPY CHIEF NPRG BUN (Blood Urea Nitrogen), P 11 6 - 21 mg/dL 05/12/2023 7:07 AM COPY CHIEF NPRG Creatinine 0.69 0.59 - 1.04 mg/dL 05/12/2023 7:07 AM COPY CHIEF NPRG Estimated GFR (eGFR) >90 >=60 mL/min/BS A 05/12/2023 7:07 AM COPY CHIEF NPRG Comment: Estimated GFR calculated using the 2020 CKD_EPI creatinine equation. Calcium, Total, P 9.3 8.6 - 10.0 mg/dL 05/12/2023 7:07 AM COPY CHIEF NPRG Glucose, P 99 70 - 140 mg/dL 05/12/2023 7:07 AM COPY CHIEF NPRG Protein, Total, P 6.7 6.3 - 7.9 g/dL 05/12/2023 7:07 AM COPY CHIEF NPRG Albumin, P 4.5 3.5 - 5.0 g/dL 05/12/2023 7:07 AM COPY CHIEF NPRG Aspartate Aminotransferase (AST), P 22 8 - 43 U/L 05/12/2023 7:07 AM COPY CHIEF NPRG Alkaline Phosphatase, P 68 35 - 104 U/L 05/12/2023 7:07 AM COPY CHIEF NPRG Alanine Aminotransferase (ALT), P 18 7 - 45 U/L 05/12/2023 7:07 AM COPY CHIEF NPRG Bilirubin, Total, P 1.1 0.0 - 1.2 mg/dL 05/12/2023 7:07 AM COPY CHIEF NPRG Blood (Blood, Venous) 05/12/2023 6:39 AM COPY CHIEF 05/12/2023 6:41 AM COPY CHIEF Jonathon Johnsno M.D. LAB BLOOD ADD-ON [facility] [address] [place] [address], [place] [facility] [address] [address] [place] [address] * (ABNORMAL) Urinalysis with Microscopic if Indicated (05/12/2023 5:55 AM COPY CHIEF) Only the most recent of3 resultswithin the time period is included. Source Urine, Urine, Midstream 05/12/2023 5:58 AM COPY CHIEF NPRG Clarity Clear Clear 05/12/2023 6:02 AM COPY CHIEF NPRG Color Yellow 05/12/2023 6:02 AM COPY CHIEF NPRG Comment: ----REFERENCE VALUE---- Colorless Yellow Kelly Blood Trace(A) Negative 05/12/2023 6:02 AM COPY CHIEF NPRG Nitrite Negative Negative 05/12/2023 6:02 AM COPY CHIEF NPRG Leukocyte Esterase Trace(A) Negative 05/12/2023 6:02 AM COPY CHIEF NPRG Protein 30(A) mg/dL 05/12/2023 6:02 AM COPY CHIEF NPRG Comment: ----REFERENCE VALUE---- Negative Trace Glucose Negative Negative mg/dL 05/12/2023 6:02 AM COPY CHIEF NPRG Ketones, QI(U) Trace(A) Negative mg/dL 05/12/2023 6:02 AM COPY CHIEF NPRG Bilirubin Negative Negative 05/12/2023 6:02 AM COPY CHIEF NPRG pH 6.0 5.0 - 8.0 05/12/2023 6:02 AM COPY CHIEF NPRG Specific [place] 1.025 1.001 - 1.035 05/12/2023 6:02 AM COPY CHIEF NPRG Urobilinogen 0.2 0.2 - 1.0 mg/dL 05/12/2023 6:02 AM COPY CHIEF NPRG Urine (Urine, Midstream) 05/12/2023 5:55 AM COPY CHIEF 05/12/2023 5:57 AM COPY CHIEF Jonathon Johnson M.D. LAB URINE ORDERABLES Performing Organization Address City/State/[facility] Co de Phone Number [facility] [address] [place] [address], [place] [facility] [facility] [address] [place] [address] * (ABNORMAL) Microscopic Manual (05/12/2023 5:55 AM COPY CHIEF) Only the most recent of3 resultswithin the time period is included. White Blood Cells 4-10 /hpf 05/12/2023 6:14 AM COPY CHIEF NPRG Comment: ----REFERENCE VALUE---- Males: 0-3 Females: 0-10 Unknown: 0-10 Red Blood Cells Occ-2 0 - 2 /hpf 05/12/2023 6:14 AM COPY CHIEF NPRG Squamous Cells 11-20 /hpf 05/12/2023 6:14 AM COPY CHIEF NPRG Bacteria Present(A) None Seen 05/12/2023 6:14 AM COPY CHIEF NPRG Urine 05/12/2023 5:55 AM COPY CHIEF 05/12/2023 5:57 AM COPY CHIEF Soft Results Interface LAB URINE ORDERAB LES Performing Organization Address [facility] Co de Phone Number [facility] [address] [place] [address], [place] [address] [address] [place] [address] * Test, POCT, Urine (Lab) (05/12/2023 5:55 AM COPY CHIEF) Only the most recent of3 resultswithin the time period is included. Test, POCT, U Negative 05/12/2023 6:11 AM COPY CHIEF NPRG Urine (Urine, Midstream) 05/12/2023 5:55 AM COPY CHIEF 05/12/2023 5:57 AM COPY CHIEF Jonathon Johnson M.D. LAB POCT ORDERABLES - DEVICE Performing Organization Address [facility] Co de Phone Number [facility] [address] [place] [address], [place] NPR[place] [address] [address] [place] [address] * Basic Metabolic Panel (04/24/2023 1:29 PM COPY CHIEF) Potassium, P 4.0 3.6 - 5.2 mmol/L 04/24/2023 2:09 PM COPY CHIEF NPRG Sodium, P 138 135 - 145 mmol/L 04/24/2023 2:09 PM COPY CHIEF NPRG Chloride, P 105 98 - 107 mmol/L 04/24/2023 2:09 PM COPY CHIEF NPRG Bicarbonate, P 23 22 - 29 mmol/L 04/24/2023 2:09 PM COPY CHIEF NPRG Anion Gap, P 10 7 - 15 04/24/2023 2:09 PM COPY CHIEF NPRG BUN (Blood Urea Nitrogen), P 11 6 - 21 mg/dL 04/24/2023 2:09 PM COPY CHIEF NPRG Creatinine 0.66 0.59 - 1.04 mg/dL 04/24/2023 2:09 PM COPY CHIEF NPRG Estimated GFR (eGFR) >90 >=60 mL/min/BSA 04/24/2023 2:09 PM COPY CHIEF NPRG Comment: Estimated GFR calculated using the 2020 CKD_EPI creatinine equation. Calcium, Total, P 8.8 8.6 - 10.0 mg/dL 04/24/2023 2:09 PM COPY CHIEF NPRG Glucose, P 112 70 - 140 mg/dL 04/24/2023 2:09 PM COPY CHIEF NPRG Blood (Blood, Venous) 04/24/2023 1:29 PM COPY CHIEF 04/24/2023 1:31 PM COPY CHIEF Benny Cuevas M.D. LAB BLOOD ADD-ON [facility] [address] [place] [address], [place] [facility] [facility] [address] [place] [address] from Last 3 Months Care Teams Assistant Press Operator Relationship Specialty Start Date End Date Elsewhere, Pcp PCP - General 08/30/21
--- OUTSIDE RECORDS SUMMARY | 2023-05-23 10:42 | XMS_ITS | Encounter Summary ---
Author Name Unknown Organization [facility] Address [address] [place] [address] Care Team Providers Care Hemmer Lockstitch Name Role Phone Elsewhere, Pcp Primary Care Provider Unavailabl e Reason for Visit * Reason Comments Fever Since Tuesday Sore Throat Late last noct; 0100 Abdominal Pain On/off since Fri Nasal Congestion Ear Fullness Angel; since late last noct Neck Pain Since Sat; back of n brando Encounter Details Date Type Department Care Team (Latest Contact Info) Description 08/29/2022 8:45 AM CDT Office Visit Urgent Care, [facility], in [place], [place] [address] [place] [phone] Nena Pepe, ARTURO, C.N.P., R.N. [address] [place] [address] [phone] Influenza Like Illness (Primary Dx); Sore Throat; Pharyngitis Streptococcal Discharge Disposition: Home or Self Care Social [...] How often do you attend chur or advent services? Never 07/14/2022 Do you belong to any clubs o r organizations such as yarsanism groups, unions, fraternal or athletic groups, or [...] medical care, and heating? Somewhat hard 07/14/2022 [facility] - Occupational Stress [...] No 07/14/2022 Housing Stability Vital Sign Answer Esrg e Recorded In the last 12 months, [...] place to sleep or slept in a [facility] (including now)? 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 - 08/29/2022 8:45 AM CDT 1. Test results will be available in portal. 2. Isolate until test results available in the next hour or two. 3. Continue symptomatic relief measures acetaminophen or ibuprofen, rest and fluids. 4. Follow up with primary care team if symptoms persist or worsen. To the emergency department withany chest pain, shortness of breath, difficulty breathing or any other emergent concern. * Attachments The following attachments cannot be sent through Care Everywhere. * Influenza Adult [id number] (Marshallese) documented in this encounter Progress Notes * Nena Pepe APRN, C.N.P. - 08/29/2022 8:45 AM CDT SUBJECTIVE CHIEF COMPLAINT / REASON FOR VISIT Fever (Since Tuesday), Sore Throat (Late last noct; 0100), Abdominal Pain (On/off since Tue), Nasal Congestion, Ear Fullness (Angel; since late last noct), and Neck Pain (Since Sat; back of neck) HISTORY OF PRESENT ILLNESS Deanna Garcia is a 22 y.o. female who presents for evaluation of fever, sore throat, increasing congestion and ear pressure, body aches. Tolerating fluids. Has not eaten much past 3 days, nothing yet today. Not Covid vaccinated. Not influenza vaccinated. Fever. Chills. No cough. Positive congestion. No nausea. No vomiting. No diarrhea. 2 home Covid tests negative. History of Covid disease May 2021. Treating with ondansetron tablets for nausea. PCP [facility]. Sent home from work 2 days ago. 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 The following portions of the patient's history were reviewed and updated as appropriate: Allergies, current medications, medical history. REVIEW OF SYSTEMS Pertinent items are noted in HPI; all other review of systems was negative. OBJECTIVE VITAL SIGNS BP 100/64 (BP Location: Right arm, Patient Position: Sitting, Cuff Size: Small) Comment (Cuff Size): adult Pulse 105 Temp 37.4 ??C (Temporal) Wt 50.2 kg SpO2 97% No BMI 19.00 kg/m?? PHYSICAL EXAMINATION Physical Exam Pleasant 22 y.o. female in no acute distress mildly ill-appearing.. Skin: warm dry and intact. Low-grade fever. No evidence of rash. Head: normocephalic with nasal facial congestion. Nares: patent without drainage. Eyes: conjunctivae minimal injections bilaterally. Ears: canals patent bilaterally. Tympanic membranes bulging pearly white and intact bilaterally. Throat: posteriorly mild erythema in the posterior oropharynx. Tonsils: minimally enlarged. Neck: Shotty bilateral cervical lymphadenopathy. Neck is soft and supple. Lungs: Nonlabored. Lungs are clear anterior posterior throughout. Mental status: Alert oriented pleasant cooperative. DIAGNOSTICS Results for orders placed or performed in visit on 08/29/22 Influenza A/B, SARS CoV-2, PCR, Rapid, Varies Symptomatic Specimen: Nasopharynx; Swab Result Value Ref Range Influenza A, PCR, Rapid, V Negative Negative Influenza B, PCR, Rapid, V Negative Negative SARS CoV-2, PCR, Rapid, V Undetected Undetected Infl A/B, SARS CoV-2, PCR, Source Swab, Nasopharynx CBC with Differential, Blood Result Value Ref Range Hemoglobin 12.3 11.6 - 15.0 g/dL Hematocrit 37.1 35.5 - 44.9 % Erythrocytes 4.06 3.92 - 5.13 x10(12)/L MCV 91.4 78.2 - 97.9 fL RBC Distrib Width 12.5 12.2 - 16.1 % Platelet Count 171 157 - 371 x10(9)/L Leukocytes 7.4 3.4 - 9.6 x10(9)/L Neutrophils 5.57 1.56 - 6.45 x10(9)/L Lymphocytes 0.92 (L) 0.95 - 3.07 x10(9)/L Monocytes 0.91 (H) 0.26 - 0.81 x10(9)/L Eosinophils 0.01 (L) 0.03 - 0.48 x10(9)/L Basophils 0.01 0.01 - 0.08 x10(9)/L Basic Metabolic Panel Result Value Ref Range Potassium, P 4.2 3.6 - 5.2 mmol/L Sodium, P 138 135 - 145 mmol/L Chloride, P 103 98 - 107 mmol/L Bicarbonate, P 26 22 - 29 mmol/L Anion Gap, P 9 7 - 15 BUN (Blood Urea Nitrogen), P 10 6 - 21 mg/dL Creatinine 0.70 0.59 - 1.04 mg/dL Estimated GFR (eGFR) >90 >=60 mL/min/BSA Calcium, Total, P 8.9 8.6 - 10.0 mg/dL Glucose, P 107 70 - 140 mg/dL Strep Group A, PCR, Point of Care Result Value Ref Range Strep Group A, PCR, POCT Collected Strep Group A, PCR, Point of Care Result Value Ref Range Strep Group A, PCR, POCT Positive (A) Negative ASSESSMENT / PLAN Diagnosis Plan 1. Influenza Like Illness Influenza A/B, SARS CoV-2, PCR, Rapid, Varies Symptomatic CBC with Differential, Blood Basic Metabolic Panel 2. Sore Throat Strep Group A, PCR, Point of Care penicillin V potassium (VEETIDS) 500 mg tablet 3. Pharyngitis Streptococcal Pleasant 22-year-old female presents to urgent care today with concerns of ongoing illness over thepast 3 days. Strep test is positive today. Reviewed use and side effects of medication. Continue symptomatic relief measures. Follow-up with primary care team if symptoms fail to gradually improve over the next 1-3 days, certainly sooner if symptoms worsen or as needed for any other concerns. Strict return to care precautions discussed including any difficulty swallowing speaking or breathing to the emergency department or any other emergent concerns. Verbally agrees and verbally understands today's plan of care. No further questions or concerns. Follow up as discussed and reviewed in AVS. Discharged from [facility] in vitally stable fatigued condition. documented in this encounter Plan of Treatment Not on file documented as of this encounter Procedures Procedure Name Priority Date/Time Associated Diagnosis Comments STREP GROUP A, PCR, POCT Routine 08/29/2022 9:42 AM CDT STREP GROUP A, PCR, POCT Routine 08/29/2022 9:37 AM CDT Sore Throat CBC WITH DIFFERENTIAL, B STAT 08/29/2022 9:09 AM CDT Influenza Like Illness BASIC METABOLIC PANEL, S/P STAT 08/29/2022 9:09 AM CDT Influenza Like Illness IFLU A, B, SARS COV-2, PCR, RAPID,V STAT 08/29/2022 9:04 AM CDT Influenza Like Illness documented in this encounter Results * (ABNORMAL) Strep Group A, PCR, Point of Care (08/29/2022 9:42 AM CDT) Strep Group A, PCR, POCT Positive(A ) Negative 08/29/2022 9:42 AM CDT NPRG 08/29/2022 9:42 AM CDT 08/29/2022 9:57 AM CDT Generic Rals LAB POCT ORDERABLES - DEVICE Performing Organization Address City/[facility]/ZIP Co de Phone Number [facility] [address] [place] [address], [place] [address] [address] [place] [address] * Strep Group A, PCR, Point of Care (08/29/2022 9:37 AM CDT) Strep Group A, PCR, POCT Collected DEFAULT 08/29/2022 9:41 AM CDT NPRG Swab (Throat) 08/29/2022 9:3 7 AM CDT 08/29/2022 9:41 AM CDT Nena Pepe APRN, C.N.P., R.N. LAB PO CT ORDERABLES - DEVICE [facility] [address] [place] [address], [place] NPRG [facility] [address] [place] [address] * Basic Metabolic Panel (08/29/2022 9:09 AM CDT) Potassium, P 4.2 3.6 - 5.2 mmol/L 08/29/2022 9:30 AM CDT NPRG Sodium, P 138 135 - 145 mmol/L 08/29/2022 9:30 AM CDT NPRG Chloride, P 103 98 - 107 mmol/L 08/29/2022 9:30 AM CDT NPRG Bicarbonate, P 26 22 - 29 mmol/L 08/29/2022 9:29 AM CDT NPRG Anion Gap, P 9 7 - 15 08/29/2022 9:30 AM CDT NPRG BUN (Blood Urea Nitrogen), P 10 6 - 21 mg/dL 08/29/2022 9:29 AM CDT NPRG Creatinine 0.70 0.59 - 1.04 mg/dL 08/29/2022 9:29 AM CDT NPRG Estimated GFR (eGFR) >90 >=60 mL/min/BSA 08/29/2022 9:29 AM CDT NPRG Comment: Estimated GFR calculated using the 2020 CKD_EPI creatinine equation. Calcium, Total, P 8.9 8.6 - 10.0 mg/dL 08/29/2022 9:29 AM CDT NPRG Glucose, P 107 70 - 140 mg/dL 08/29/2022 9:29 AM CDT NPRG Blood (Blood, Venous) 08/29/2022 9:09 AM CDT 08/29/2022 9:12 AM CDT Nena Pepe APRN, C.N.P., R.N. LAB BL OOD ADD-ON [facility] [address] [facility] [place] [address], [facility] NPRG [facility] [address] [place] [address] * (ABNORMAL) CBC with Differential, Blood (08/29/2022 9:09 AM CDT) Hemoglobin 12.3 11.6 - 15.0 g/dL 08/29/2022 9:20 AM CDT NPRG Hematocrit 37.1 35.5 - 44.9 % 08/29/2022 9:20 AM CDT NPRG Erythrocytes 4.06 3.92 - 5.13 x10(12)/L 08/29/2022 9:20 AM CDT NPRG MCV 91.4 78.2 - 97.9 fL 08/29/2022 9:20 AM CDT NPRG RBC Distrib Width 12.5 12.2 - 16.1 % 08/29/2022 9:20 AM CDT NPRG Platelet Count 171 157 - 371 x10(9)/L 08/29/2022 9:20 AM CDT NPRG Leukocytes 7.4 3.4 - 9.6 x10(9)/L 08/29/2022 9:20 AM CDT NPRG Neutrophils 5.57 1.56 - 6.45 x10(9)/L 08/29/2022 9:20 AM CDT NPRG Lymphocytes 0.92(L) 0.95 - 3.07 x10(9)/L 08/29/2022 9:20 AM CDT NPRG Monocytes 0.91(H) 0.26 - 0.81 x10(9)/L 08/29/2022 9:20 AM CDT NPRG Eosinophils 0.01(L) 0.03 - 0.48 x10(9)/L 08/29/2022 9:20 AM CDT NPRG Basophils 0.01 0.01 - 0.08 x10(9)/L 08/29/2022 9:20 AM CDT NPRG Blood (Blood, Venous) 08/29/2022 9:09 AM CDT 08/29/2022 9:12 AM CDT Nena Pepe APRN, C.N.P., R.N. LAB BL OOD ADD-ON [facility] [address] [facility] [place] [address], [facility] NPRG [facility] [address] [facility] [place] [address] * Influenza A/B, SARS CoV-2, PCR, Rapid, Varies Symptomatic (08/29/2022 9:04 AM CDT) Influenza A, PCR, Rapid, V Negative Negative 08/29/2022 9:31 AM CDT NPRG Influenza B, PCR, Rapid, V Negative Negative 08/29/2022 9:31 AM CDT NPRG SARS CoV-2, PCR, Rapid, V Undetected Undetected 08/29/2022 9:31 AM CDT NPRG Comment: ----ADDITIONAL INFORMATION---- This RT-PCR test was performed using the [employer] SARS-CoV-2 and Influenza A/B Reagent assay from [employer], which has received Emergency Use Authorization(EUA) by the U.S. Food and Drug Administration. Fact sheets for this Emergency Use Authorization (EUA) assay can be found at the following links: For Healthcare Providers: https://www.fda.gov/media/316501/download For Patients: https://www.fda.gov/media/793596/download Infl A/B, SARS CoV-2, PCR, Source Swab, Nasopharynx 08/29/2022 9:09 AM CDT NPRG Swab (Nasopharynx) 08/29/2022 9:04 AM CDT 08/29/2022 9:09 AM CDT Nena Pepe APRN, C.N.P., R.N. LAB [place] CROBIOLOGY - GENERAL ORDERABLES [facility] [address] [place] [address], [facility] NPRG [facility] [address] [place] [address] documented in this encounter Visit Diagnoses Diagnosis Influenza Like Illness- Primary Sore Throat Pharyngitis Streptococcal documented in this encounter Care Teams Hemmer Lockstitch Relationship Specialty Start Date End Date Elsewhere, Pcp PCP - General 08/30/21 documented as of this encounter
--- OUTSIDE RECORDS SUMMARY | 2023-05-23 10:42 | XMS_ITS | Encounter Summary ---
Author Name Unknown Organization [facility] Address [address] [place] [address] Care Team Providers Care Cdl Bulk Driver Name Role Phone Elsewhere, Pcp Primary Care Provider Unavailabl e Reason for Visit * Reason Comments Abdominal Pain Pt presents to the E R with abdominal pain and vomiting since 2am Encounter Details Date Type Department Care Team (Late st Contact Info) Description 06/07/2022 10:45 AM BANK CLERK - 06/07/2022 12:35 PM [facility] Emergency [place] [facility] [address] [place] [phone] Jessa Brunner D.O. [address] [place] [phone] Nausea And Vomiting (Primary Dx); Abdominal Pain Discharge Disposition: Home or Self Care Social History Tobacco Use Types Packs/Day Years Used Date Smoking Tobacco: Never Passive Smoke Exposure: Never Smokeless Tobacco: Never Alcohol Use Standard Drinks/Week Comments No 0 (1 standard drink = 0.6 oz pur e alcohol) Nutrition Answer Date Recorded Nutrition: EVOO Fat Source Unknown 07/14 Nutrition: Servings of Fruits/Vegetables per Day Not on file 07/14/2020 Dental Answer Date Recorded Dental: Regular Dentist Unknown 07/16/19 21 Sex and Gender Information Value Date Recorded Sex Assigned at Not on file Gender Identity Not on file Sexual Orientation Not on file documented as of this encounter Last Filed Vital Signs Vital Sign Reading Time Taken Comments Blood Pressure 96/73 06/07/2022 12:15 PM BANK CLERK Pulse 107 06/07/2022 12:15 PM BANK CLERK Temperature 37.3 ??C (99.1 ??F) 06/07/2022 10:[address] Respiratory Rate - - Oxygen Saturation 99% 06/07/2022 12:15 PM BANK CLERK Inhaled Oxygen Concentration - - Weight 51 kg (112 lb 7 oz) 06/07/2022 10:[address] Height 162.6 cm (5' 4) 06/07/2022 10:48 AM BANK CLERK Body Mass Index 19.3 06/07/2022 10:48 AM BANK CLERK documented in this encounter Discharge Instructions * Discharge Instructions* Jessa Brunner D.O. - 06/07/2022 12:25 PM BANK CLERK Drink fluids to stay hydrated, at least 1 ounce every 30-45 minutes. Water, sports drink (like Gatorade), or watered down apple juice (half juice/half water) are best. Avoid acidic juices (orange/grapefruit), carbonated, or caffeinated drinks. Take the Zofran every 6 hours if needed for nausea or vomiting. Take the omeprazole once daily as prescribed. Follow a [place] Diet until your symptoms are improving. One example is the BRAT diet (bananas, rice,applesauce, toast). As your symptoms improve, slowly return to a normal diet. Avoid meats and dairy products until you are feeling better, as those are harder to digest and may cause vomiting or increased abdominal pain. Avoid foods that will cause stomach irritation: Caffeine Coffee Chocolate Peppermint Acidic foods such as tomato sauces, orange juice, grapefruit juice Carbonated beverages such as soda Spicy foods Alcohol Tobacco products (nicotine) CLERK * Attachments The following attachments cannot be sent through Care Everywhere. * Nausea and Vomiting Adult Ttyq-up-Kekv (Khmer) documented in this encounter Medications at Time of Discharge Medication Sig Dispensed Refills Start Date End Date omeprazole (PriLOSEC) [address] capsule Take 1 capsule (40 mg total) by mouth every morning before breakfast. 30 capsule 2 06/07/2022 acetaminophen (TYLENOL) 500 mg tablet Take 500 mg by mouth every 6 (six) hours as needed for pain. 0 07/14/2022 ondansetron (ZOFRAN) 4 mg tablet TAKE 1-2 TABLETS EVERY 8 HOURS NEEDED FOR NAUSEA AND VOMITING 0 04/09/2021 06/08/2022 ondansetron (ZOFRAN) 4 mg tablet Take 1 tablet (4 mg total) by mouth every 6 (six) hours as needed for nausea or vomiting. 20 tablet 0 06/08/2022 02/19/2023 ondansetron (ZOFRAN) 8 mg tablet Take 8 mg by mouth every 8 (eight) hours as needed. for nausea 0 04/15/2021 06/08/2022 ondansetron ODT (ZOFRAN-ODT) 4 mg disintegrating tablet Dissolve 1 tablet (4 mg total) in the mouth every 6 (six) hours as needed for nausea or vomiting. 10 tablet 2 06/07/2022 06/08/2022 documented as of this encounter ED Notes * Jessa Brunner D.O. - 06/07/2022 11:44 AM CST [facility] EMERGENCY DEPARTMENT ENCOUNTER Patient Name: Deanna Garcia Birthdate 2000 Date of evaluation: 06/07/2022 Provider: Jessa Brunner D.O. PCP: ELSEWHERE, PCP SUBJECTIVE CHIEF COMPLAINT/REASON FOR VISIT Abdominal Pain (Pt presents to the ER with abdominal pain and vomiting since 2am ) HISTORY OF PRESENT ILLNESS Deanna Garcia is a 21 y.o. female presents to the ED for evaluation of upper abdominal pain, vomiting and diarrhea that started abruptly at 2am. Upper abdominal pain first, followed by vomiting, then diarrhea about an hour later. No sick contacts at home. Unable to tolerate even sips of water, so she came to the ED for evaluation. Patient has had an upper endoscopy twice, most recently about 18 months ago at [facility] for abdominal pain. She had previously been on omeprazole, but is not currently taking it. No history of abdominalsurgeries. History provided by: Patient MEDICAL HISTORY Past Medical History: Diagnosis Date Factor V Leiden Family History OBJECTIVE VITAL SIGNS BP 111/66 Pulse (!) 111 Temp 37.3 ??C Ht 162.6 cm Wt 51 kg LMP 04/26/2022 (Exact Date) SpO2 100% BMI 19.30 kg/m?? PHYSICAL EXAMINATION: Constitutional: Nursing note and vitals reviewed. She is active. Non-toxic appearance. She appears ill. No distress. HENT: Head: Normocephalic. Mouth/Throat: Mucous membranes are moist. Eyes: Conjunctivae are normal. Neck: Neck supple. Cardiovascular: Normal rate, regular rhythm and normal heart sounds. Capillary refill: takes less than 3 seconds Pulmonary/Chest: Effort normal and breath sounds normal. There is normal air entry. No respiratory distress. Abdominal: Soft. Bowel sounds are normal. exhibits no distension. There is abdominal tenderness (Diffuse upper abdominal tenderness without rebound or guarding. Negative Forrest sign. Minimal lower abdominal tenderness.). Musculoskeletal: General: No edema. Cervical back: Normal range of motion and neck supple. Neurological: Alert and oriented to person, place, and time. Skin: Skin is warm and dry. No rash noted. DIAGNOSTICS LABS: Labs Reviewed CBC WITH DIFFERENTIAL, B - Abnormal Result Value Hemoglobin 13.3 Hematocrit 40.8 Erythrocytes 4.51 MCV 90.5 RBC Distrib Width 12.6 Platelet Count 190 Leukocytes 12.4 (*) Neutrophils 11.59 (*) Lymphocytes 0.38 (*) Monocytes 0.41 Eosinophils 0.00 (*) Basophils 0.01 URINALYSIS WITH MICROSCOPIC IF INDICATED, U - Abnormal Source Urine, Urine, Midstream Clarity Clear Color Yellow Blood Negative Nitrite Negative Leukocyte Esterase Negative Protein 30 (*) Glucose Negative Ketones, QI(U) >=80 (*) Bilirubin Negative pH 7.5 Specific [place] 1.025 Urobilinogen 0.2 MICROSCOPIC MANUAL - Abnormal White Blood Cells Occ-3 Red Blood Cells Occ-2 Dysmorphic Red Blood Cells <=25 Squamous Cells 11-20 Bacteria Present (*) LIPASE, S/P Lipase, P 15 COMPREHENSIVE METABOLIC PANEL, S/P Potassium, P 4.3 Sodium, P 139 Chloride, P 104 Bicarbonate, P 22 Anion Gap, P 13 BUN (Blood Urea Nitrogen), P 17 Creatinine 0.60 Estimated GFR (eGFR) >90 Calcium, Total, P 9.0 Glucose, P 134 Protein, Total, P 7.6 Albumin, P 4.8 Aspartate Aminotransferase (AST), P 22 Alkaline Phosphatase, P 62 Alanine Aminotransferase (ALT), P 20 Bilirubin, Total, P 0.9 TEST, POCT, U (LAB) Test, POCT, U Negative EMERGENCY DEPARTMENT COURSE and DIFFERENTIAL DIAGNOSIS/MDM: Patient was given the following medications: Medications sodium chloride 0.9 % injection 2-10 mL (has no administration in time range) NaCl 0.9 % bolus 1,000 mL (1,000 mL intravenous New Bag 06/07/22 1115) ondansetron (PF) injection 4 mg (ZOFRAN) (4 mg intravenous Given 06/07/22 1107) pantoprazole injection 40 mg (PROTONIX) (40 mg intravenous Given 06/07/22 1108) MDM: IMPRESSION AND PLAN Patient presents to the emergency department for abrupt onset of vomiting and diarrhea that startedat 02:00 this morning. She was given Zofran and Protonix here. Reviewing her past records she has had multiple medications prescribed from Carafate to Bentyl to Zofran for nausea and abdominal discomfort. She reports an upper endoscopy about 18 months ago that was unremarkable. Her exam is reassuring. Her labs are normal except for a mild leukocytosis, likely from the vomiting. I discussed with patient this is most likely a gastritis/gastroenteritis. I will prescribe Zofran for home and restarther PPI. DIFFERENTIAL DIAGNOSIS Gastroenteritis, gastritis, peptic ulcer, pancreatitis, , acute cholecystitis, biliary colic, IBS I reviewed previous medical records including documentation from previous visits, lab results and radiology images/report, with the following summary comments: Outside ED abd pain visit 04/28/21.. I personally reviewed the lab result(s) and my interpretation is no significant findings, with the following comments: Mild leukocytosis, labs otherwise unremarkable. FINAL IMPRESSION: Final diagnoses: [R11.2] Nausea And Vomiting [R10.9] Abdominal Pain ED DISCHARGE MEDS: ED Prescriptions Medication Sig Dispense Start Date End Date Auth. Provider ondansetron ODT (ZOFRAN-ODT) 4 mg disintegrating tablet Dissolve 1 tablet (4 mg total) in the mouthevery 6 (six) hours as needed for nausea or vomiting. 10 tablet 06/07/2022 -- Jessa Brunner D.O. omeprazole (PriLOSEC) [address] capsule Take 1 capsule (40 mg total) by mouth every morning before breakfast. 30 capsule 06/07/2022 07/07/2022 Jessa Brunner D.O. Sarah Rice, D.O. Rice, Sarah, D.O. 06/07/22 1228 CLERK documented in this encounter Plan of Treatment Not on file documented as of this encounter Procedures Procedure Name Priority Date/Time Associated Diagnosis Comments URINALYSIS WITH MICROSCOPIC IF INDICATED, U STAT 06/07/2022 11:36 AM BANK CLERK HC URINALYSIS AUTO W MICRO STAT 06/07/2022 11:36 AM BANK CLERK TEST, POCT, U (LAB) STAT 06/07/2022 11:36 AM BANK CLERK CBC WITH DIFFERENTIAL, B STAT 06/07/2022 11:06 AM BANK CLERK LIPASE, S/P STAT 06/07/2022 11:06 AM BANK CLERK COMPREHENSIVE METABOLIC PANEL, S/P STAT 06/07/2022 11:06 AM BANK CLERK documented in this encounter Results * (ABNORMAL) Microscopic Manual (06/07/2022 11:36 AM BANK CLERK) White Blood Cells Occ-3 /hpf 06/07/2022 11:58 AM BANK CLERK NPRG Comment: ----REFERENCE VALUE---- Males: 0-3 Females: 0-10 Unknown: 0-10 Red Blood Cells Occ-2 0 - 2 /hpf 11:58 AM BANK CLERK NPRG Dysmorphic Red Blood Cells <=25 <=25 % 06/07/2022 11:58 AM BANK CLERK NPRG Squamous Cells 11-20 /hpf 06/07/2022 11:58 AM BANK CLERK NPRG Bacteria Present(A) None Seen 06/07/2022 11:58 AM BANK CLERK NPRG Urine 06/07/2022 11:3 6 AM BANK CLERK 06/07/2022 11:43 AM BANK CLERK Jessa Brunner D.O. LAB URINE ORDERABLES [facility] [address] [place] [address], [facility] NPRG [facility] [address] [place] [address] * Test, POCT, Urine (lab) (06/07/2022 11:36 AM BANK CLERK) Test, POCT, U Negative 06/07/2022 11:51 AM BANK CLERK NPRG Urine (Urine, Midstream) 06/07/2022 11:36 AM BANK CLERK 06/07/2022 11:43 AM BANK CLERK Jessa Brunner D.O. LAB POCT ORDERABLES - DEVICE [facility] [address] [place] [address], [facility] NPRG [place] [address] [place] [address] * (ABNORMAL) Urinalysis with Microscopic if Indicated (06/07/2022 11:36 AM BANK CLERK) Source Urine, Urine, Midstream 06/07/2022 11:43 AM BANK CLERK NPRG Clarity Clear Clear 06/07/2022 11:46 AM BANK CLERK NPRG Color Yellow 06/07/2022 11:46 AM BANK CLERK NPRG Comment: ----REFERENCE VALUE---- Colorless Yellow Kelly Blood Negative Negative 06/07/2022 11:46 AM BANK CLERK NPRG Nitrite Negative Negative 06/07/2022 11:46 AM BANK CLERK NPRG Leukocyte Esterase Negative Negative 06/07/2022 11:46 AM BANK CLERK NPRG Protein 30(A) mg/dL 06/07/2022 11:46 AM BANK CLERK NPRG Comment: ----REFERENCE VALUE---- Negative Trace Glucose Negative Negative mg/dL 06/07/2022 11:46 AM BANK CLERK NPRG Ketones, QI(U) >=80(A) Negative mg/dL 06/07/2022 11:46 AM BANK CLERK NPRG Bilirubin Negative Negative 06/07/2022 11:46 AM BANK CLERK NPRG pH 7.5 5.0 - 8.0 06/07/2022 11:46 AM BANK CLERK NPRG Specific [place] 1.025 1.001 - 1.035 06/07/2022 11:46 AM BANK CLERK NPRG Urobilinogen 0.2 0.2 - 1.0 mg/dL 06/07/2022 11:46 AM BANK CLERK NPRG Urine (Urine, Midstream) 06/07/2022 11:36 AM BANK CLERK 06/07/2022 11:43 AM BANK CLERK Jessa Brunner D.O. LAB URINE ORDERABLES [facility] [address] [place] [address], [facility] NPRG [facility] [address] [place] [address] * (ABNORMAL) CBC with Differential, Blood (06/07/2022 11:06 AM BANK CLERK) Hemoglobin 13.3 11.6 - 15.0 g/dL 06/07/2022 11:14 AM BANK CLERK NPRG Hematocrit 40.8 35.5 - 44.9 % 06/07/2022 11:14 AM BANK CLERK NPRG Erythrocytes 4.51 3.92 - 5.13 x10(12)/L 06/07/2022 11:14 AM BANK CLERK NPRG MCV 90.5 78.2 - 97.9 fL 06/07/2022 11:14 AM BANK CLERK NPRG RBC Distrib Width 12.6 12.2 - 16.1 % 06/07/2022 11:14 AM BANK CLERK NPRG Platelet Count 190 157 - 371 x10(9)/L 06/07/2022 11:14 AM BANK CLERK NPRG Leukocytes 12.4(H) 3.4 - 9.6 x10(9)/L 06/07/2022 11:14 AM BANK CLERK NPRG Neutrophils 11.59(H) 1.56 - 6.45 x10(9)/L 06/07/2022 11:14 AM BANK CLERK NPRG Lymphocytes 0.38(L) 0.95 - 3.07 x10(9)/L 06/07/2022 11:14 AM BANK CLERK NPRG Monocytes 0.41 0.26 - 0.81 x10(9)/L 06/07/2022 11:14 AM BANK CLERK NPRG Eosinophils 0.00(L) 0.03 - 0.48 x10(9)/L 06/07/2022 11:14 AM BANK CLERK NPRG Basophils 0.01 0.01 - 0.08 x10(9)/L 06/07/2022 11:14 AM BANK CLERK NPRG Blood (Blood, Venous) 06/07/2022 11:06 AM BANK CLERK 06/07/2022 11:09 AM BANK CLERK Jessa Brunner D.O. LAB BLOOD ADD-ON [facility] [address] [place] [address], [facility] NPRG [facility] [address] [place] [address] * Comprehensive Metabolic Panel (06/07/2022 11:06 AM BANK CLERK) Potassium, P 4.3 3.6 - 5.2 mmol/L 06/07/2022 11:29 AM BANK CLERK NPRG Sodium, P 139 135 - 145 mmol/L 06/07/2022 11:29 AM BANK CLERK NPRG Chloride, P 104 98 - 107 mmol/L 06/07/2022 11:29 AM BANK CLERK NPRG Bicarbonate, P 22 22 - 29 mmol/L 06/07/2022 11:29 AM BANK CLERK NPRG Anion Gap, P 13 7 - 15 06/07/2022 11:29 AM BANK CLERK NPRG BUN (Blood Urea Nitrogen), P 17 6 - 21 mg/dL 06/07/2022 11:29 AM BANK CLERK NPRG Creatinine 0.60 0.59 - 1.04 mg/dL 06/07/2022 11:29 AM BANK CLERK NPRG Estimated GFR (eGFR) >90 >=60 mL/min/BS A 06/07/2022 11:29 AM BANK CLERK NPRG Comment: Estimated GFR calculated using the 2020 CKD_EPI creatinine equation. Calcium, Total, P 9.0 8.6 - 10.0 mg/dL 06/07/2022 11:29 AM BANK CLERK NPRG Glucose, P 134 70 - 140 mg/dL 06/07/2022 11:29 AM BANK CLERK NPRG Protein, Total, P 7.6 6.3 - 7.9 g/dL 06/07/2022 11:29 AM BANK CLERK NPRG Albumin, P 4.8 3.5 - 5.0 g/dL 06/07/2022 11:29 AM BANK CLERK NPRG Aspartate Aminotransferase (AST), P 22 8 - 43 U/L 06/07/2022 11:29 AM BANK CLERK NPRG Alkaline Phosphatase, P 62 35 - 104 U/L 06/07/2022 11:29 AM BANK CLERK NPRG Alanine Aminotransferase (ALT), P 20 7 - 45 U/L 06/07/2022 11:29 AM BANK CLERK NPRG Bilirubin, Total, P 0.9 <=1.2 mg/dL 06/07/2022 11:29 AM BANK CLERK NPRG Blood (Blood, Venous) 06/07/2022 11:06 AM BANK CLERK 06/07/2022 11:09 AM BANK CLERK Jessa Brunner D.O. LAB BLOOD ADD-ON [facility] [address] [place] [id number], [facility] NPRG [address] [address] * Lipase (06/07/2022 11:06 AM BANK CLERK) Lipase, P 15 13 - 60 U/L 06/07/2022 11:29 AM BANK CLERK NPRG Blood (Blood, Venous) 06/07/2022 11:06 AM BANK CLERK 06/07/2022 11:09 AM BANK CLERK Jessa Brunner D.O. LAB BLOOD ADD-ON Performing Organization Address City/[facility]/ZIP Co de Phone Number [facility] [address] [place] [id number], [place] [address] [address] documented in this encounter Visit Diagnoses Diagnosis Nausea And Vomiting- Primary Abdominal Pain documented in this encounter Administered Medications Inactive Administered Medications - up to 3 most recent administrations Medication Order MAR Action Action Date Dose Rate Site NaCl 0.9 % bolus 1,000 mL 1,000 mL, intravenous, at 1,000 mL/hr, Administer over 1 Hours, Once, On Tue06/07/22 at 1100, For 1 dose New Bag 06/07/2022 11:15 AM BANK CLERK 1,000 mL 1000 mL/hr ondansetron (PF) injection 4 mg (ZOFRAN) 4 mg, intravenous, Once, On Tue06/07/22 at 1100, For 1 dose Given 06/07/2022 11:07 AM BANK CLERK 4 mg pantoprazole injection 40 mg (PROTONIX) 40 mg, intravenous, Once, On Tue06/07/22 at 1100, For 1 dose, Administer IV push over 2 minutes. Add 10 mL NS to 40 mg vial for a final concentration of 4 mg/mL. Given 06/07/2022 11:08 AM BANK CLERK 40 mg sodium chloride 0.9 % injection 2-10 mL 2-10 mL, intravenous, As needed, line care, Starting on Tue06/07/22 at 1058 documented in this encounter Active and Recently Administered Medications Times are shown in BANK CLERK. Scheduled Medication Order 06/05/2022 06/06/2022 06/07/2022 NaCl 0.9 % bolus 1,000 mL (COMPLETED) 1,000 mL, intravenous, at 1,000 mL/hr, Administer over 1 Hours, Once, On Tue06/07/22 at 1100, For 1 dose 1115 (New Bag - Prov ider: Harmony Bonner R.N.)1228 (Stopped - Provider: Harmony Bonner R.N.) ondansetron (PF) injection 4 mg (ZOFRAN) (COMPLETED) 4 mg, intravenous, Once, On Tue06/07/22 at 1100, For 1 dose 1107 (Given - Provid er: Harmony Bonner R.N.) pantoprazole injection 40 mg (PROTONIX) (COMPLETED) 40 mg, intravenous, Once, On Tue06/07/22 at 1100, For 1 dose, Administer IV push over 2 minutes. Add 10 mL NS to 40 mg vial for a final concentration of 4 mg/mL. 1108 (Given - Provid er: Harmony Bonner R.N.) PRN Medication Order 06/05/2022 06/06/2022 06/07/2022 sodium chloride 0.9 % injection 2-10 mL(Linked Group 1) 2-10 mL, intravenous, As needed, line care, Starting on Tue06/07/22 at 1058 Linked Groups Order Group 1: Place peripheral IV: No upper extremity site restrictions (CANCELED) Upper extremity site restriction: No upper extremity site restrictions, Quantity of PIVs requested: One, STAT, Once, On Tue06/07/22 at 1059, For 1 occurrence And sodium chloride 0.9 % injection 2-10 mLJump to med 2-10 mL, intravenous, As needed, line care, Starting on Tue06/07/22 at 1058 documented in this encounter Care Teams Cdl Bulk Driver Relationship Specialty Start Date End Date Elsewhere, Pcp PCP - General 08/30/21 documented as of this encounter
--- OUTSIDE RECORDS SUMMARY | 2023-05-23 10:42 | XMS_ITS | Encounter Summary ---
Author Name Unknown Organization [facility] Address [address] [place] [address] Care Team Providers Care Tomato Pulper Operator Name Role Phone Elsewhere, Pcp Primary Care Provider Unavailabl e Reason for Referral * Outpatient (Routine) - Authorized Specialty Diagnoses / Procedures Referred By Berkley garrett Referred To Contact Neurology Zakia Watkins M.D., M.P.H. [address] [phone] [facility] Region Referral ID Status Reason Start Date Expiration Date V isits Requested Visits Authorized [id number] Authorized 07/14/2022 07/13/2025 1 1 S LATHE OPERATOR Reason for Visit * Reason Comments Migraine Consult Ref. Dr. Her españa / [facility] * Appointment Request (Routine) - Closed Specialty Diagnoses / Procedures Referred By Berkley garrett Referred To Contact Neurology Referral ID Status Reason Start Date Expiration Date Visits Re quested Visits Authorized [id number] Closed 06/22/2022 06/22/2023 1 Encounter Details Date Type Department Care Team (Latest Contact Info) Description 07/14/2022 2:30 PM GLASS LATHE OPERATOR Comprehensive Visit Department of Neurology in [address] [phone] Zakia Watkins M.D., M.P.H. [address] [phone] Migraine Headache Classic (Primary Dx); Neuralgia Occipital Social History Tobacco Use Types Packs/Day Years [...] often do you attend chur ch or alevism services? Never 07/14/2022 Do you belong to any clubs o r organizations such as rastafarian groups, unions, fraternal or athletic groups, or [...] medical care, and heating? Somewhat hard 07/14/2022 [facility] [place] [facility] Occup[facility] - Occupational Stress [...] place to sleep or slept in a jail (including now)? No 07/14/2022 Nutrition Answer Date [...] Sign Reading Time Taken Comments Blood Pressure 114/61 07/14/2022 2:12 PM GLASS LATHE OPERATOR Pulse 87 07/14/2022 2:12 PM GLASS LATHE OPERATOR Temperature - - Respiratory Rate - - Oxygen Saturation - - Inhaled Oxygen Concentration - - Weight 51.9 kg (114 lb 6.7 oz) 07/14/2022 2:12 P M GLASS LATHE OPERATOR Height - - Body Mass Index 19.64 06/07/2022 10:48 AM GLASS LATHE OPERATOR documented in this encounter Patient Instructions * Patient Instructions* Zakia Watkins M.D., M.P.H. - 07/14/2022 2:30 PM GLASS LATHE OPERATOR Aleve or Naproxen with Maxalt S LATHE OPERATOR * Attachments The following attachments cannot be sent through Care Everywhere. * Headaches: An Overview (Indonesian) documented in this encounter Consult Notes * Zkaia Watkins M.D., M.P.H. - 07/14/2022 2:30 PM CST SUBJECTIVE Abrial presents today for headaches. She appears to have these two types of headaches. Her migrainous headaches started about 10 years ago. These headaches are usually preceded by a visual aura whichsound like scintillating scotomata. Headaches settle in the left eye and they may impair her visionsubstantially. She might have numbness in the face the left side appears to be the side that the headaches settle on. She sometimes with the migraine has word substitution and the the left eye is painful with her most severe headaches. She also has occipital headaches which can sometimes settled into the right side. She can have nausea and vomiting with these headaches the vomiting makes her headache worse. She has phonophobia osmophobia and photophobia. Exertion coughing sneezing and concentration make her headache worse. Too much sleep he can bring headaches on as can flickering lights or strong smells. The headaches can last 1-2 days and most severe cases 2-3 days. She generally has one or fewer headaches per month but can rarely have two and a week. She took nortriptyline, some dose that caused her to feel groggy. She thought that it might have been 5 mg but the medication does not come in that dose so she does not really now. She has not been given a trial of any other prophylactic medicines. She takes Maxalt but finds that it sometimes isn't helpful. She is not taking this with naproxen. Ioffered that she could take this with [id number] naproxen and potentially increase the effectiveness. Patient has previously been seen by Dr. Navarrete at the [facility]. Today's visit she has a 3/10 headache. I reviewed with her the headache questionnaire set. REVIEW OF SYSTEMS Admission on 06/07/2022, Discharged on 06/07/2022 Component Date Value Ref Range Status Lipase, P 06/07/2022 15 13 - 60 U/L Final Potassium, P 06/07/2022 4.3 3.6 - 5.2 mmol/L Final Sodium, P 06/07/2022 139 135 - 145 mmol/L Final Chloride, P 06/07/2022 104 98 - 107 mmol/L Final Bicarbonate, P 06/07/2022 22 22 - 29 mmol/L Final Anion Gap, P 06/07/2022 13 7 - 15 Final BUN (Blood Urea Nitrogen), P 06/07/2022 17 6 - 21 mg/dL Final Creatinine 06/07/2022 0.60 0.59 - 1.04 mg/dL Final Estimated GFR (eGFR) 06/07/2022 >90 >=60 mL/min/BSA Final Comment: Estimated GFR calculated using the 2020 CKD_EPI creatinine equation. Calcium, Total, P 06/07/2022 9.0 8.6 - 10.0 mg/dL Final Glucose, P 06/07/2022 134 70 - 140 mg/dL Final Protein, Total, P 06/07/2022 7.6 6.3 - 7.9 g/dL Final Albumin, P 06/07/2022 4.8 3.5 - 5.0 g/dL Final Aspartate Aminotransferase (AST), P 06/07/2022 22 8 - 43 U/L Final Alkaline Phosphatase, P 06/07/2022 62 35 - 104 U/L Final Alanine Aminotransferase (ALT), P 06/07/2022 20 7 - 45 U/L Final Bilirubin, Total, P 06/07/2022 0.9 <=1.2 mg/dL Final Hemoglobin 06/07/2022 13.3 11.6 - 15.0 g/dL Final Hematocrit 06/07/2022 40.8 35.5 - 44.9 % Final Erythrocytes 06/07/2022 4.51 3.92 - 5.13 x10(12)/L Final MCV 06/07/2022 90.5 78.2 - 97.9 fL Final RBC Distrib Width 06/07/2022 12.6 12.2 - 16.1 % Final Platelet Count 06/07/2022 190 157 - 371 x10(9)/L Final Leukocytes 06/07/2022 12.4 (H) 3.4 - 9.6 x10(9)/L Final Neutrophils 06/07/2022 11.59 (H) 1.56 - 6.45 x10(9)/L Final Lymphocytes 06/07/2022 0.38 (L) 0.95 - 3.07 x10(9)/L Final Monocytes 06/07/2022 0.41 0.26 - 0.81 x10(9)/L Final Eosinophils 06/07/2022 0.00 (L) 0.03 - 0.48 x10(9)/L Final Basophils 06/07/2022 0.01 0.01 - 0.08 x10(9)/L Final Source 06/07/2022 Urine, Urine, Midstream Final Clarity 06/07/2022 Clear Clear Final Color 06/07/2022 Yellow Final Comment: ----REFERENCE VALUE---- Colorless Yellow Kelly Blood 06/07/2022 Negative Negative Final Nitrite 06/07/2022 Negative Negative Final Leukocyte Esterase 06/07/2022 Negative Negative Final Protein 06/07/2022 30 (A) mg/dL Final Comment: ----REFERENCE VALUE---- Negative Trace Glucose 06/07/2022 Negative Negative mg/dL Final Ketones, QI(U) 06/07/2022 >=80 (A) Negative mg/dL Final Bilirubin 06/07/2022 Negative Negative Final pH 06/07/2022 7.5 5.0 - 8.0 Final Specific [place] 06/07/2022 1.025 1.001 - 1.035 Final Urobilinogen 06/07/2022 0.2 0.2 - 1.0 mg/dL Final Test, POCT, U 06/07/2022 Negative Final White Blood Cells 06/07/2022 Occ-3 /hpf Final Comment: ----REFERENCE VALUE---- Males: 0-3 Females: 0-10 Unknown: 0-10 Red Blood Cells 06/07/2022 Occ-2 0 - 2 /hpf Final Dysmorphic Red Blood Cells 06/07/2022 <=25 <=25 % Final Squamous Cells 06/07/2022 11-20 /hpf Final Bacteria 06/07/2022 Present (A) None Seen Final Office Visit on 04/09/2022 Component Date Value Ref Range Status Strep Group A, PCR, POCT 04/09/2022 Collected Final Influenza A, PCR, Rapid, V 04/09/2022 Negative Negative Final Influenza B, PCR, Rapid, V 04/09/2022 Negative Negative Final SARS CoV-2, PCR, Rapid, V 04/09/2022 Undetected Undetected Final Comment: ----ADDITIONAL INFORMATION---- This RT-PCR test was performed using the [employer] SARS-CoV-2 and Influenza A/B Reagent assay from [employer], which has received Emergency Use Authorization(EUA) by the U.S. Food and Drug Administration. Fact sheets for this Emergency Use Authorization (EUA) assay can be found at the following links: For Healthcare Providers: https://www.fda.gov/media/224087/download For Patients: https://www.fda.gov/media/207833/download Infl A/B, SARS CoV-2, PCR, Source 04/09/2022 Swab, Nasopharynx Final Strep Group A, PCR, POCT 04/09/2022 Positive (A) Negative Final OBJECTIVE BP 114/61 (BP Location: Left arm, Patient Position: Sitting, Cuff Size: Regular) Pulse 87 Wt 51.9 kg BMI 19.64 kg/m?? Physical Exam COGNITION: Alert and oriented x 4. CRANIAL NERVES: escort patients II-XII intact and symmetric. MOTOR: Full strength throughout the upper and lower extremities bilaterally both proximally and distally. Normal tone. No pronator drift. No tremor. REFLEXES: Normal and symmetric at the biceps, triceps, brachioradialis, knees, and ankles. SENSORY: normal sensation to touch CEREBELLAR: ARMs-normal GAIT: Normal She has a little bit of tenderness in the bioccipital region near the greater occipital nerve. ASSESSMENT / PLAN #1 Migraine Headache Classic Patient has classic migraines and will try to treat her prophylactically with propanolol since she has not been on that in the past. I have also added naproxen to her Maxalt. #2 Neuralgia Occipital Think she has occipital neuralgia as well and I would consider greater occipital nerve blocks in the future if these headaches continue to be a problem. Other orders - propranoloL (INDERAL LA) 60 mg 24 hr capsule; Take 1 capsule (60 mg total) by mouth daily., Starting Tue07/14/2022, Until Tue07/14/2023, Normal - Neurology office visit (clinic); Future; Expected date: 10/06/2022 I personally spent over half of a total 45 minutes in counseling and discussion with the patient and coordination of care as described above. S LATHE OPERATOR documented in this encounter Plan of Treatment Scheduled Referrals Name Type Priority Associated Diagnoses Orde r Schedule Neurology office visit (clinic) Outpatient Referral Routine Expected: 10/06/2022 (Approximate), Expires: 10/15/2023 documented as of this encounter Visit Diagnoses Diagnosis Migraine Headache Classic- Primary Occipital Neuralgia documented in this encounter Care Teams Tomato Pulper Operator Relationship Specialty Start Date End Date Elsewhere, Pcp PCP - General 08/30/21 documented as of this encounter
--- OUTSIDE RECORDS SUMMARY | 2023-05-23 10:42 | XMS_ITS | Encounter Summary ---
Author Name Unknown Organization [facility] Address [address] [place] [address] Care Team Providers Care Battery Assembler Dry Cell Name Role Phone Elsewhere, Pcp Primary Care Provider Unavailabl e Reason for Visit * Reason Comments Abdominal Pain Pt presents with rafa rly 3 week history of intermittent upper mid-epigastric pain. Pt adds that she has vomited a few times during this time, last episode was 2 days ago. Encounter Details Date Type Department Care Team (Late st Contact Info) Description 04/18/2023 5:45 PM GENERAL MERCHANDISE SALESPERSON - 04/18/2023 8:15 PM GENERAL MERCHANDISE SALESPERSON [facility] [address] [place] [phone] Angela Jarvis M.D., M.B.A. [address] [place] [phone] Abdominal Pain (Primary Dx) Discharge Disposition: Home or Self Care Social [...] How often do you attend chur or presybeterian services? Never 07/14/2022 Do you belong to any clubs o r organizations such as taoist groups, unions, fraternal or athletic groups, or [...] medical care, and heating? Somewhat hard 07/14/2022 [facility] - [...] place to sleep or slept in a fci (including now)? No 07/14/2022 Nutrition Answer Date [...] Sign Reading Time Taken Comments Blood Pressure 102/66 04/18/2023 8:00 PM GENERAL MERCHANDISE SALESPERSON Pulse 78 04/18/2023 8:15 PM GENERAL MERCHANDISE SALESPERSON Temperature 37.3 ??C (99.1 ??F) 04/18/2023 5:48 PM CS T Respiratory Rate 16 04/18/2023 5:48 PM GENERAL MERCHANDISE SALESPERSON Oxygen Saturation 98% 04/18/2023 8:15 PM GENERAL MERCHANDISE SALESPERSON Inhaled Oxygen Concentration - - Weight 51.7 kg (114 lb) 04/18/2023 5:49 PM GENERAL MERCHANDISE SALESPERSON Height 162.6 cm (5' 4) 04/18/2023 5:49 PM GENERAL MERCHANDISE SALESPERSON Body Mass Index 19.57 04/18/2023 5:49 PM GENERAL MERCHANDISE SALESPERSON documented in this encounter Discharge Instructions * Discharge Instructions* Angela Jarvis M.D., M.B.A. - 04/18/2023 7:32 PM GENERAL MERCHANDISE SALESPERSON Please follow-up with your primary care doctor in the next week. If you are continuing to have symptoms I do recommend you speak with your primary care doctor if itwould be of benefit for an endoscopy and a follow-up with Gastroenterology. Additionally we will not be able to test for H pylori today. I recommend that you discuss this withyour primary doctor. Please return emergency department immediately if you have worsening pain, fever any other new and concerning symptoms. RAL MERCHANDISE SALESPERSON * Attachments The following attachments cannot be sent through Care Everywhere. * Abdominal Pain Adult Ajmn-id-Igzw (Divehi) documented in this encounter Medications at Time of Discharge Medication Sig Dispensed Refills Start Date End Date propranoloL (INDERAL LA) 60 mg 24 hr capsule Take 1 capsule (60 mg total) by mouth daily. 30 capsule 11 07/14/2022 07/14/2023 rizatriptan (MAXALT) 10 mg tablet Take 10 mg by mouth every 2 (two) hours as needed. 0 06/30/2022 rizatriptan TUTORIAL LABORATORY SUPERVISOR (MAXALT-TUTORIAL LABORATORY SUPERVISOR) 10 mg disintegrating tablet TAKE 1 TABLET BY MOUTH AT ONSET OF HEADACHE , MAY REPEAT AFTER 2 HOURS MAX2/DAY 0 08/26/2022 pantoprazole (PROTONIX) 40 mg EC tablet Take 1 tablet (40 mg total) by mouth every morning before breakfast for 14 days. 14 tablet 0 04/18/2023 05/02/2023 documented as of this encounter ED Notes * Angela Jarvis M.D., M.B.A. - 04/18/2023 8:10 PM CST SUBJECTIVE CHIEF COMPLAINT/REASON FOR VISIT Abdominal Pain (Pt presents with nearly 3 week history of intermittent upper mid-epigastric pain. Pt adds that she has vomited a few times during this time, last episode was 2 days ago. ) HISTORY OF PRESENT ILLNESS Deanna Garcia is a 22 y.o. female who is presenting with epigastric pain. The patient reports thatshe started with epigastric pain about 3 weeks ago. She has had 2 separate days where she has had vomiting. Most the time her pain is 3 to 4/10 but right before she vomits it is at its worse which liv 10/10. She has not noticed any blood in her vomit or dark or bloody stools. She does have a histor y of previous H pylori. She has had no fever REVIEW OF SYSTEMS Constitutional: Negative for chills. Respiratory: Negative for cough. Cardiovascular: Negative for chest pain. Gastrointestinal: Positive for abdominal pain and vomiting. Genitourinary: Negative for dysuria. Musculoskeletal: Positive for back pain. OBJECTIVE Initial Vitals Temperature 04/18/23 1748 37.3 ??C Pulse Rate 04/18/23 1745 82 Heart Rate -- Resp Rate 04/18/23 1748 16 Blood Pressure 04/18/23 1748 126/78 SpO2 04/18/23 1745 100 % Pain Score 04/18/23 1748 3 PHYSICAL EXAMINATION Constitutional: Very well-appearing female in no significant distress HENT: Head: Normocephalic and atraumatic. Cardiovascular: Normal rate and regular rhythm. Pulmonary/Chest: Effort normal. There is normal air entry. She has no wheezes. She has no rhonchi. Abdominal: Soft. exhibits no distension. There is abdominal tenderness (minor tenderness in the epigastrium). There is no guarding. Musculoskeletal: General: No deformity. Neurological: Alert, no gross neurologic deficit Skin: Skin is warm and dry. Psychiatric: She has a normal mood and affect. ASSESSMENT/PLAN Deanna Garcia is a 22 y.o. female who is presenting with abdominal pain. Patient's vital signs arefairly unremarkable. Patient's physical examination reveals mild tenderness in the epigastrium. Differential diagnosis includes pancreatitis, cholecystitis, peptic ulcer disease, gastritis. Patient's laboratory results were unremarkable. Given her history of previous H pylori I do anticipate that this could be a peptic ulcer. She had some improvement following a GI cocktail. I did prescribe Protonix. I recommended that she follow-up with her primary care doctor for further evaluation.She may benefit from H pylori testing or an endoscopy. Final Diagnoses: as of 04/18/232009 Abdominal Pain Angela Jarvis M.D., M.B.A. 04/18/232011 RAL MERCHANDISE SALESPERSON documented in this encounter Plan of Treatment Not on file documented as of this encounter Procedures Procedure Name Priority Date/Time Associated Diagnosis Comments CBC WITH DIFFERENTIAL, B STAT 04/18/2023 6:31 PM GENERAL MERCHANDISE SALESPERSON LIPASE, S/P STAT 04/18/2023 6:31 PM GENERAL MERCHANDISE SALESPERSON COMPREHENSIVE METABOLIC PANEL, S/P STAT 04/18/2023 6:31 PM GENERAL MERCHANDISE SALESPERSON URINALYSIS WITH MICROSCOPIC IF INDICATED, U STAT 04/18/2023 5:30 PM GENERAL MERCHANDISE SALESPERSON HC URINALYSIS AUTO W MICRO STAT 04/18/2023 5:30 PM GENERAL MERCHANDISE SALESPERSON TEST, POCT, U (LAB) STAT 04/18/2023 5:30 PM GENERAL MERCHANDISE SALESPERSON documented in this encounter Results * Lipase (04/18/2023 6:31 PM GENERAL MERCHANDISE SALESPERSON) Lipase, P 18 13 - 60 U/L 04/18/2023 6: 56 PM GENERAL MERCHANDISE SALESPERSON NPRG Blood (Blood, Venous) 04/18/2023 6:31 PM GENERAL MERCHANDISE SALESPERSON 04/18/2023 6:34 PM GENERAL MERCHANDISE SALESPERSON Angela Jarvis M.D., M.B.A. LAB BLOOD ADD-ON [facility] [address] [place] [address], [place] NPRG [facility] [address] [place] [address] * (ABNORMAL) CBC with Differential, Blood (04/18/2023 6:31 PM GENERAL MERCHANDISE SALESPERSON) Hemoglobin 11.6 11.6 - 15.0 g/dL 04/18/2023 6:46 PM GENERAL MERCHANDISE SALESPERSON NPRG Hematocrit 35.4(L) 35.5 - 44.9 % 04/18/2023 6:46 PM GENERAL MERCHANDISE SALESPERSON NPRG Erythrocytes 3.85(L) 3.92 - 5.13 x10(12)/L 04/18/2023 6:46 PM GENERAL MERCHANDISE SALESPERSON NPRG MCV 91.9 78.2 - 97.9 fL 04/18/2023 6:46 PM GENERAL MERCHANDISE SALESPERSON NPRG RBC Distrib Width 12.3 12.2 - 16.1 % 04/18/2023 6:46 PM GENERAL MERCHANDISE SALESPERSON NPRG Platelet Count 208 157 - 371 x10(9)/L 04/18/2023 6:46 PM GENERAL MERCHANDISE SALESPERSON NPRG Leukocytes 4.5 3.4 - 9.6 x10(9)/L 04/18/2023 6:46 PM GENERAL MERCHANDISE SALESPERSON NPRG Neutrophils 2.49 1.56 - 6.45 x10(9)/L 04/18/2023 6:46 PM GENERAL MERCHANDISE SALESPERSON NPRG Lymphocytes 1.32 0.95 - 3.07 x10(9)/L 04/18/2023 6:46 PM GENERAL MERCHANDISE SALESPERSON NPRG Monocytes 0.60 0.26 - 0.81 x10(9)/L 04/18/2023 6:46 PM GENERAL MERCHANDISE SALESPERSON NPRG Eosinophils 0.08 0.03 - 0.48 x10(9)/L 04/18/2023 6:46 PM GENERAL MERCHANDISE SALESPERSON NPRG Basophils 0.02 0.01 - 0.08 x10(9)/L 04/18/2023 6:46 PM GENERAL MERCHANDISE SALESPERSON NPRG Blood (Blood, Venous) 04/18/2023 6:31 PM GENERAL MERCHANDISE SALESPERSON 04/18/2023 6:34 PM GENERAL MERCHANDISE SALESPERSON Angela Jarvis M.D., M.B.A. LAB BLOOD ADD-ON [facility] [address] [place] [address], [facility] NPRG [facility] [address] [place] [address] * (ABNORMAL) Comprehensive Metabolic Panel (04/18/2023 6:31 PM GENERAL MERCHANDISE SALESPERSON) Potassium, P 4.0 3.6 - 5.2 mmol/L 04/18/2023 6:56 PM GENERAL MERCHANDISE SALESPERSON NPRG Sodium, P 139 135 - 145 mmol/L 04/18/2023 6:56 PM GENERAL MERCHANDISE SALESPERSON NPRG Chloride, P 106 98 - 107 mmol/L 04/18/2023 6:56 PM GENERAL MERCHANDISE SALESPERSON NPRG Bicarbonate, P 25 22 - 29 mmol/L 04/18/2023 6:56 PM GENERAL MERCHANDISE SALESPERSON NPRG Anion Gap, P 8 7 - 15 04/18/2023 6:56 PM GENERAL MERCHANDISE SALESPERSON NPRG BUN (Blood Urea Nitrogen), P 8 6 - 21 mg/dL 04/18/2023 6:56 PM GENERAL MERCHANDISE SALESPERSON NPRG Creatinine 0.57(L) 0.59 - 1.04 mg/dL 04/18/2023 6:56 PM GENERAL MERCHANDISE SALESPERSON NPRG Estimated GFR (eGFR) >90 >=60 mL/min/BS A 04/18/2023 6:56 PM GENERAL MERCHANDISE SALESPERSON NPRG Comment: Estimated GFR calculated using the 2020 CKD_EPI creatinine equation. Calcium, Total, P 8.5(L) 8.6 - 10.0 mg/dL 04/18/2023 6:56 PM GENERAL MERCHANDISE SALESPERSON NPRG Glucose, P 83 70 - 140 mg/dL 04/18/2023 6:56 PM GENERAL MERCHANDISE SALESPERSON NPRG Protein, Total, P 6.2(L) 6.3 - 7.9 g/dL 04/18/2023 6:56 PM GENERAL MERCHANDISE SALESPERSON NPRG Albumin, P 4.1 3.5 - 5.0 g/dL 04/18/2023 6:56 PM GENERAL MERCHANDISE SALESPERSON NPRG Aspartate Aminotransferase (AST), P 19 8 - 43 U/L 04/18/2023 6:56 PM GENERAL MERCHANDISE SALESPERSON NPRG Alkaline Phosphatase, P 78 35 - 104 U/L 04/18/2023 6:56 PM GENERAL MERCHANDISE SALESPERSON NPRG Alanine Aminotransferase (ALT), P 13 7 - 45 U/L 04/18/2023 6:56 PM GENERAL MERCHANDISE SALESPERSON NPRG Bilirubin, Total, P 0.4 0.0 - 1.2 mg/dL 04/18/2023 6:56 PM GENERAL MERCHANDISE SALESPERSON NPRG Blood (Blood, Venous) 04/18/2023 6:31 PM GENERAL MERCHANDISE SALESPERSON 04/18/2023 6:34 PM GENERAL MERCHANDISE SALESPERSON Angela Jarvis M.D., M.B.A. LAB BLOOD ADD-ON Performing Organization Address City/[facility] Co de Phone Number [facility] [address] [place] [address], [facility] NPRG [address] [address] * Test, POCT, Urine (Lab) (04/18/2023 5:30 PM GENERAL MERCHANDISE SALESPERSON) Test, POCT, U Negative 04/18/2023 7:07 PM GENERAL MERCHANDISE SALESPERSON NPRG Urine (Urine, Midstream) 04/18/2023 5:30 PM GENERAL MERCHANDISE SALESPERSON 04/18/2023 7:00 PM GENERAL MERCHANDISE SALESPERSON Angela Jarvis M.D., M.B.A. LAB POCT ORDERABLES - DEVICE Performing Organization Address [facility] Co de Phone Number [facility] [address] [place] [id number], [facility] NPRG [address] [address] * Microscopic Manual (04/18/2023 5:30 PM GENERAL MERCHANDISE SALESPERSON) White Blood Cells None Seen /hpf 04/18/2023 6:24 PM GENERAL MERCHANDISE SALESPERSON NPRG Comment: ----REFERENCE VALUE---- Males: 0-3 Females: 0-10 Unknown: 0-10 Red Blood Cells Occ-2 0 - 2 /hpf 6:24 PM GENERAL MERCHANDISE SALESPERSON NPRG Dysmorphic Red Blood Cells <=25 <=25 % 04/18/2023 6:24 PM GENERAL MERCHANDISE SALESPERSON NPRG Squamous Cells Occ-3 /hpf 04/18/2023 6:24 PM GENERAL MERCHANDISE SALESPERSON NPRG Urine 04/18/2023 5:30 PM GENERAL MERCHANDISE SALESPERSON 04/18/2023 6:13 PM GENERAL MERCHANDISE SALESPERSON Angela Jarvis M.D., M.B.A. LAB URINE ORDERABLES Performing Organization Address City/[facility]/ZIP Co de Phone Number [facility] [address] [place] [address], [place] NPRG [place] [address] [address] [place] [address] * (ABNORMAL) Urinalysis with Microscopic if Indicated (04/18/2023 5:30 PM GENERAL MERCHANDISE SALESPERSON) Source Urine, Urine, Midstream 04/18/2023 6:13 PM GENERAL MERCHANDISE SALESPERSON NPRG Clarity Clear Clear 04/18/2023 6:16 PM GENERAL MERCHANDISE SALESPERSON NPRG Color Yellow 04/18/2023 6:16 PM GENERAL MERCHANDISE SALESPERSON NPRG Comment: ----REFERENCE VALUE---- Colorless Yellow Kelly Blood Trace(A) Negative 04/18/2023 6:16 PM GENERAL MERCHANDISE SALESPERSON NPRG Nitrite Negative Negative 04/18/2023 6:16 PM GENERAL MERCHANDISE SALESPERSON NPRG Leukocyte Esterase Negative Negative 04/18/2023 6:16 PM GENERAL MERCHANDISE SALESPERSON NPRG Protein Negative mg/dL 04/18/2023 6:16 PM GENERAL MERCHANDISE SALESPERSON NPRG Comment: ----REFERENCE VALUE---- Negative Trace Glucose Negative Negative mg/dL 04/18/2023 6:16 PM GENERAL MERCHANDISE SALESPERSON NPRG Ketones, QI(U) Negative Negative mg/dL 04/18/2023 6:16 PM GENERAL MERCHANDISE SALESPERSON NPRG Bilirubin Negative Negative 04/18/2023 6:16 PM GENERAL MERCHANDISE SALESPERSON NPRG pH 7.0 5.0 - 8.0 04/18/2023 6:16 PM GENERAL MERCHANDISE SALESPERSON NPRG Specific Rosharon 1.015 1.001 - 1.035 04/18/2023 6:16 PM GENERAL MERCHANDISE SALESPERSON NPRG Urobilinogen 0.2 0.2 - 1.0 mg/dL 04/18/2023 6:16 PM GENERAL MERCHANDISE SALESPERSON NPRG Urine (Urine, Midstream) 04/18/2023 5:30 PM GENERAL MERCHANDISE SALESPERSON 04/18/2023 6:13 PM GENERAL MERCHANDISE SALESPERSON Angela Jarvis M.D., M.B.A. LAB URINE ORDERABLES [facility] [address] [place] [address], [facility] NPRG [facility] [address] documented in this encounter Visit Diagnoses Diagnosis Abdominal Pain- Primary documented in this encounter Administered Medications Inactive Administered Medications - up to 3 most recent administrations Medication Order MAR Action Action Date Dose Rate Site lidocaine viscous 2 % 15 mL, alum-mag hydroxide-simeth 30 mL susp 45 mL, oral, Once, On Tue04/18/23 at 1820, For 1 dose, Mix ingredients prior to administration Given 04/18/2023 6:59 PM GENERAL MERCHANDISE SALESPERSON 45 mL ondansetron ODT disintegrating tablet 4 mg (ZOFRAN-ODT) 4 mg, oral, Once, On Tue04/18/23 at 1824, For 1 dose, When splitting ODT at bedside, handle with gloves and a pill splitter to prevent moisture contact. Given 04/18/2023 6:26 PM GENERAL MERCHANDISE SALESPERSON [address] tablet 40 mg (PROTONIX) 40 mg, oral, Once, On Tue04/18/23 at 1933, For 1 dose, Swallow whole. Do NOT crush, chew, or split tablet. Given 04/18/2023 7:38 PM GENERAL MERCHANDISE SALESPERSON 40 mg documented in this encounter Active and Recently Administered Medications Times are shown in GENERAL MERCHANDISE SALESPERSON. Scheduled Medication Order 04/16/2023 04/17/2023 04/18/2023 lidocaine viscous 2 % 15 mL, alum-mag hydroxide-simeth 30 mL susp (COMPLETED) 45 mL, oral, Once, On Tue04/18/23 at 1820, For 1 dose, Mix ingredients prior to administration 1858 (Given - Provid er: Nena Portillo R.N.) ondansetron ODT disintegrating tablet 4 mg (ZOFRAN-ODT) (COMPLETED) 4 mg, oral, Once, On Tue04/18/23 at 1824, For 1 dose, When splitting ODT at bedside, handle with gloves and a pill splitter to prevent moisture contact. 1825 (Given - Provid er: Tushar HoustonN.) pantoprazole DR tablet 40 mg (PROTONIX) (COMPLETED) 40 mg, oral, Once, On Tue04/18/23 at 1933, For 1 dose, Swallow whole. Do NOT crush, chew, or split tablet. 1937 (Given - Provid er: Jessa Sanchez R.N.) documented in this encounter Care Teams Battery Assembler Dry Cell Relationship Specialty Start Date End Date Elsewhere, Pcp PCP - General 08/30/21 documented as of this encounter
--- OUTSIDE RECORDS SUMMARY | 2023-05-23 10:42 | XMS_ITS | Encounter Summary ---
Author Name Unknown Organization [facility] Address [address] [place] [address] Care Team Providers Care Police Detention Attendant Name Role Phone Elsewhere, Pcp Primary Care Provider Unavailabl e Reason for Visit * Reason Comments Abdominal Cramping Started like period cramping; r/o ? Nausea Diarrhea Today AM; all day Encounter Details Date Type Department Care Team (Late st Contact Info) Description 10/19/2022 6:45 PM CDT Office Visit Urgent Care, [facility], in [place], [place] [address] [place] [phone] Nena Pepe, ARTURO, C.N.P., R.N. [address] [place] [address] [phone] Pain Suprapubic (Primary Dx); Pyelonephritis Acute; Pain Flank; Nausea And Vomiting Discharge Disposition: Home or [...] How often do you attend chur or lutheran services? Never 07/14/2022 Do you belong to any clubs o r organizations such as roman catholic groups, unions, fraternal or athletic groups, or [...] medical care, and heating? Somewhat hard 07/14/2022 [facility] - Occupational [...] place to sleep or slept in a long-term (including now)? No 07/14/2022 Nutrition Answer Date [...] Sign Reading Time Taken Comments Blood Pressure 108/71 10/19/2022 7:41 PM CDT Pulse 84 10/19/2022 7:41 PM CDT 74 Temperature 37.5 ??C (99.5 ??F) 10/19/2022 7:41 PM CD T Respiratory Rate 16 10/19/2022 6:35 PM CDT Oxygen Saturation 98% 10/19/2022 7:41 PM CDT Inhaled Oxygen Concentration - - Weight 50.7 kg (111 lb 12.4 oz) 10/19/2022 6:33 PM CDT Height - - Body Mass Index 19.19 06/07/2022 10:48 AM SENIOR COMPENSATION ANALYST documented in this encounter Patient Instructions * Patient Instructions* Nena Pepe APRN, C.N.P. - 10/19/2022 6:45 PM CDT Monitor cautiously for emergent concerns of increased abdominal pain, fever, chills, unable to maintain hydration or any other emergent concern to emergency department. If symptoms fail to improve over next 3 days, will need to follow up with primary care team or return for further evaluation, sooner if symptoms worsen or as needed for any other concerns. * Attachments The following attachments cannot be sent through Care Everywhere. * Pyelonephritis Adult (Sinhala) documented in this encounter Progress Notes * Nena Pepe APRN, C.N.P. - 10/19/2022 6:45 PM CDT SUBJECTIVE CHIEF COMPLAINT / REASON FOR VISIT Abdominal Cramping (Started like period cramping; r/o ?/), Nausea, and Diarrhea (Today AM;all day) HISTORY OF PRESENT ILLNESS Deanna Garcia is a 22 y.o. female who presents for evaluation of abrupt onset left sided abdominaland back pain, cramping all day. Super nauseous with bouts of diarrhea x 5 episodes today. Vomited 300 cc now in clinic. No previous vomiting. No fever. No chills. No dark or bright red stools. No pain, burning, frequency or urgency with urination. Left lower back ache. Menses yesterday 2 days early. Cramping on left side. More cramping than usual menses. Bleeding slightly more than usual. Trying for conception. Not known to be . The following portions of the patient's history were reviewed and updated as appropriate: Allergies, current medications, medical history. History of kidney infection in past. REVIEW OF SYSTEMS Pertinent items are noted in HPI; all other review of systems was negative. OBJECTIVE VITAL SIGNS BP 111/73 Pulse 78 Temp 36.7 ??C (Temporal) Resp 16 Wt 50.7 kg LMP 10/19/2022 SpO2 99% BMI 19.19 kg/m?? PHYSICAL EXAMINATION Vitals and nursing note reviewed. Constitutional General: She is in acute distress. Appearance: She is ill-appearing. She is not toxic-appearing or diaphoretic. HENT Head: Normocephalic. Right Ear: Tympanic membrane normal. Left Ear: Tympanic membrane normal. Cardiovascular Rate and Rhythm: Normal rate. Heart sounds: Normal heart sounds. Pulmonary Effort: Pulmonary effort is normal. Breath sounds: Normal breath sounds. Abdominal General: Abdomen is flat. Bowel sounds are normal. There is no distension. Palpations: Abdomen is soft. There is no mass. Tenderness: There is abdominal tenderness (Suprapubic to palpation.). There is left CVA tenderness.There is no right CVA tenderness, guarding or rebound. Musculoskeletal General: Normal range of motion. Skin General: Skin is warm and dry. Neurological General: No focal deficit present. Mental Status: She is alert. Psychiatric Mood and Affect: Mood normal. DIAGNOSTICS Results for orders placed or performed in visit on 10/19/22 Urinalysis with Microscopic if Indicated Result Value Ref Range Source Urine, Urine, Midstream Clarity Slightly Cloudy (A) Clear Color Yellow Blood Large (A) Negative Nitrite Negative Negative Leukocyte Esterase Moderate (A) Negative Protein 30 (A) mg/dL Glucose Negative Negative mg/dL Ketones, QI(U) Negative Negative mg/dL Bilirubin Negative Negative pH 6.0 5.0 - 8.0 Specific Ramer 1.020 1.001 - 1.035 Urobilinogen 0.2 0.2 - 1.0 mg/dL CBC with Differential, Blood Result Value Ref Range Hemoglobin 12.6 11.6 - 15.0 g/dL Hematocrit 38.2 35.5 - 44.9 % Erythrocytes 4.16 3.92 - 5.13 x10(12)/L MCV 91.8 78.2 - 97.9 fL RBC Distrib Width 12.7 12.2 - 16.1 % Platelet Count 200 157 - 371 x10(9)/L Leukocytes 6.4 3.4 - 9.6 x10(9)/L Neutrophils 4.46 1.56 - 6.45 x10(9)/L Lymphocytes 1.30 0.95 - 3.07 x10(9)/L Monocytes 0.49 0.26 - 0.81 x10(9)/L Eosinophils 0.12 0.03 - 0.48 x10(9)/L Basophils 0.02 0.01 - 0.08 x10(9)/L Comprehensive Metabolic Panel Result Value Ref Range Potassium, P 3.8 3.6 - 5.2 mmol/L Sodium, P 140 135 - 145 mmol/L Chloride, P 107 98 - 107 mmol/L Bicarbonate, P 24 22 - 29 mmol/L Anion Gap, P 9 7 - 15 BUN (Blood Urea Nitrogen), P 8 6 - 21 mg/dL Creatinine 0.61 0.59 - 1.04 mg/dL Estimated GFR (eGFR) >90 >=60 mL/min/BSA Calcium, Total, P 8.9 8.6 - 10.0 mg/dL Glucose, P 92 70 - 140 mg/dL Protein, Total, P 6.8 6.3 - 7.9 g/dL Albumin, P 4.5 3.5 - 5.0 g/dL Aspartate Aminotransferase (AST), P 22 8 - 43 U/L Alkaline Phosphatase, P 59 35 - 104 U/L Alanine Aminotransferase (ALT), P 14 7 - 45 U/L Bilirubin, Total, P 0.8 <=1.2 mg/dL Microscopic Manual Result Value Ref Range White Blood Cells 11-20 (A) /hpf Red Blood Cells 21-30 (A) 0 - 2 /hpf Dysmorphic Red Blood Cells <=25 <=25 % Squamous Cells 11-20 /hpf Bacteria Present (A) None Seen Test, POCT, Urine (lab) Result Value Ref Range Test, POCT, U Negative ASSESSMENT / PLAN Diagnosis Plan 1. Pain Suprapubic Urinalysis with Microscopic if Indicated Test, POCT, Urine (lab) CBC with Differential, Blood Comprehensive Metabolic Panel 2. Pyelonephritis Acute cefTRIAXone injection 1 g (ROCEPHIN) Bacterial Culture, Aerobic + Susceptibility, Urine 3. Pain Flank 4. Nausea And Vomiting ondansetron ODT (ZOFRAN-ODT) 4 mg disintegrating tablet Pleasant 22-year-old female presents to urgent care today with her significant other. With concernsof abdominal discomfort. On exam no hepatic splenomegaly no acute abdomen appears to have suprapubic and flank tenderness to palpation. With left costovertebral angle tenderness. Urinalysis is consistent with urinary tract infection with white blood cells and bacteria present. No leukocytosis. Patient is treated for pyelonephritis. Patient has had similar infection in the past. Reviewed use and side effects of medications. Patient did have 300 cc emesis in clinic today given prescription for Zofran. It is listed as an adverse effect patient states she has used in the past for similar concerns. And tolerated well. Tolerating sips of flavored noncarbonated water. Appears vitally stable for ambulatory discharge. Reviewed strict return to care precautions including emergent concerns. Both patient and significant other verbalized understanding and agreement with [facility] plan of care. No further questions or concerns. Follow up as discussed and reviewed in AVS. Discharged from [facility] in vitally stable condition. documented in this encounter Plan of Treatment Not on file documented as of this encounter Procedures Procedure Name Priority Date/Time Associated Diagnosis Comments URINALYSIS WITH MICROSCOPIC IF INDICATED, U STAT 10/19/2022 7:27 PM CDT Pain Suprapubic HC URINALYSIS AUTO W MICRO STAT 10/19/2022 7:27 PM CDT BACTERIAL CULTURE, AEROBIC + SUSC, URINE STAT 10/19/2022 7:27 PM CDT Pyelonephritis Acute TEST, POCT, U (LAB) Routine 10/19/2022 7:26 PM CDT Pain Suprapubic CBC WITH DIFFERENTIAL, B STAT 10/19/2022 7:24 PM CDT Pain Suprapubic COMPREHENSIVE METABOLIC PANEL, S/P STAT 10/19/2022 7:24 PM CDT Pain Suprapubic documented in this encounter Results * (ABNORMAL) Bacterial Culture, Aerobic + Susceptibility, Urine (10/19/2022 7:27 PM CDT) Urine Culture Mixed microbiota (A) 10/20/2022 3:31 PM CDT MKTO Urine (Urine, Midstream) 10/19/2022 7:27 PM CDT 10/19/2022 10:45 PM CDT Comment:Specimen Source Site : Urine Nena ePpe APRN, C.N.P., R.N. LAB CT CROBIOLOGY - GENERAL ORDERABLES Performing Organization Address City/[facility]/ZIP Co de Phone Number [facility] [address] [place] [address], [facility] MKTO [facility] [place] [address] [place] [address] * (ABNORMAL) Microscopic Manual (10/19/2022 7:27 PM CDT) White Blood Cells 11-20(A) /hpf 10/19/2022 7:41 PM CDT NPRG Comment: ----REFERENCE VALUE---- Males: 0-3 Females: 0-10 Unknown: 0-10 Red Blood Cells 21-30(A) 0 - 2 /hpf 7:41 PM CDT NPRG Dysmorphic Red Blood Cells <=25 <=25 % 10/19/2022 7:41 PM CDT NPRG Squamous Cells 11-20 /hpf 10/19/2022 7:41 PM CDT NPRG Bacteria Present(A) None Seen 10/19/2022 7:41 PM CDT NPRG Urine 10/19/2022 7:27 PM CDT 10/19/2022 7:31 PM CDT Nena Pepe APRN, C.N.P., R.N. LAB UR INE ORDERABLES Performing Organization Address City/[facility]/ZIP Co de Phone Number [facility] [address] [place] [address], [place] NPRG [facility] [address] [place] [address] * (ABNORMAL) Urinalysis with Microscopic if Indicated (10/19/2022 7:27 PM CDT) Source Urine, Urine, Midstream 10/19/2022 7:31 PM CDT NPRG Clarity Slightly Cloudy(A) Clear 10/19/2022 7:33 PM CDT NPRG Color Yellow 10/19/2022 7:33 PM CDT NPRG Comment: ----REFERENCE VALUE---- Colorless Yellow Kelly Blood Large(A) Negative 10/19/2022 7:33 PM CDT NPRG Nitrite Negative Negative 10/19/2022 7:33 PM CDT NPRG Leukocyte Esterase Moderate(A) Negative 10/19/2022 7:33 PM CDT NPRG Protein 30(A) mg/dL 10/19/2022 7:33 PM CDT NPRG Comment: ----REFERENCE VALUE---- Negative Trace Glucose Negative Negative mg/dL 10/19/2022 7:33 PM CDT NPRG Ketones, QI(U) Negative Negative mg/dL 10/19/2022 7:33 PM CDT NPRG Bilirubin Negative Negative 10/19/2022 7:33 PM CDT NPRG pH 6.0 5.0 - 8.0 10/19/2022 7:33 PM CDT NPRG Specific Ramer 1.020 1.001 - 1.035 10/19/2022 7:33 PM CDT NPRG Urobilinogen 0.2 0.2 - 1.0 mg/dL 10/19/2022 7:33 PM CDT NPRG Urine (Urine, Midstream) 10/19/2022 7:27 PM CDT 10/19/2022 7:31 PM CDT Nena Pepe APRN, C.N.P., R.N. LAB UR INE ORDERABLES [facility] [address] [place] [address], [facility] NPRG [facility] [address] [place] [address] * Test, POCT, Urine (lab) (10/19/2022 7:26 PM CDT) Test, POCT, U Negative 10/19/2022 7:40 PM CDT NPRG Urine 10/19/2022 7:26 PM CDT 10/19/2022 7:31 PM CDT Nena Pepe APRN C.N.PDedra, R.N. LAB PO CT ORDERABLES - DEVICE [facility] [address] [place] [address], [facility] NPRG [facility] [address] [place] [address] * Comprehensive Metabolic Panel (10/19/2022 7:24 PM CDT) Potassium, P 3.8 3.6 - 5.2 mmol/L 10/19/2022 7:47 PM CDT NPRG Sodium, P 140 135 - 145 mmol/L 10/19/2022 7:47 PM CDT NPRG Chloride, P 107 98 - 107 mmol/L 10/19/2022 7:47 PM CDT NPRG Bicarbonate, P 24 22 - 29 mmol/L 10/19/2022 7:48 PM CDT NPRG Anion Gap, P 9 7 - 15 10/19/2022 7:47 PM CDT NPRG BUN (Blood Urea Nitrogen), P 8 6 - 21 mg/dL 10/19/2022 7:48 PM CDT NPRG Creatinine 0.61 0.59 - 1.04 mg/dL 10/19/2022 7:48 PM CDT NPRG Estimated GFR (eGFR) >90 >=60 mL/min/BS A 10/19/2022 7:48 PM CDT NPRG Comment: Estimated GFR calculated using the 2020 CKD_EPI creatinine equation. Calcium, Total, P 8.9 8.6 - 10.0 mg/dL 10/19/2022 7:48 PM CDT NPRG Glucose, P 92 70 - 140 mg/dL 10/19/2022 7:48 PM CDT NPRG Protein, Total, P 6.8 6.3 - 7.9 g/dL 10/19/2022 7:48 PM CDT NPRG Albumin, P 4.5 3.5 - 5.0 g/dL 10/19/2022 7:48 PM CDT NPRG Aspartate Aminotransferase (AST), P 22 8 - 43 U/L 10/19/2022 7:48 PM CDT NPRG Alkaline Phosphatase, P 59 35 - 104 U/L 10/19/2022 7:48 PM CDT NPRG Alanine Aminotransferase (ALT), P 14 7 - 45 U/L 10/19/2022 7:48 PM CDT NPRG Bilirubin, Total, P 0.8 <=1.2 mg/dL 10/19/2022 7:48 PM CDT NPRG Blood (Blood, Venous) 10/19/2022 7:24 PM CDT 10/19/2022 7:26 PM CDT Nena Pepe APRN, C.N.P., R.N. LAB BL OOD ADD-ON [facility] [address] [place] [address], [facility] NPRG [facility] [address] [place] [address] * CBC with Differential, Blood (10/19/2022 7:24 PM CDT) Hemoglobin 12.6 11.6 - 15.0 g/dL 10/19/2022 7:34 PM CDT NPRG Hematocrit 38.2 35.5 - 44.9 % 10/19/2022 7:34 PM CDT NPRG Erythrocytes 4.16 3.92 - 5.13 x10(12)/L 10/19/2022 7:34 PM CDT NPRG MCV 91.8 78.2 - 97.9 fL 10/19/2022 7:34 PM CDT NPRG RBC Distrib Width 12.7 12.2 - 16.1 % 10/19/2022 7:34 PM CDT NPRG Platelet Count 200 157 - 371 x10(9)/L 10/19/2022 7:34 PM CDT NPRG Leukocytes 6.4 3.4 - 9.6 x10(9)/L 10/19/2022 7:34 PM CDT NPRG Neutrophils 4.46 1.56 - 6.45 x10(9)/L 10/19/2022 7:34 PM CDT NPRG Lymphocytes 1.30 0.95 - 3.07 x10(9)/L 10/19/2022 7:34 PM CDT NPRG Monocytes 0.49 0.26 - 0.81 x10(9)/L 10/19/2022 7:34 PM CDT NPRG Eosinophils 0.12 0.03 - 0.48 x10(9)/L 10/19/2022 7:34 PM CDT NPRG Basophils 0.02 0.01 - 0.08 x10(9)/L 10/19/2022 7:34 PM CDT NPRG Blood (Blood, Venous) 10/19/2022 7:24 PM CDT 10/19/2022 7:26 PM CDT Nena Peep APRN, C.N.P., R.N. LAB BL OOD ADD-ON [facility] [address] [place] [address], [facility] NPRG [facility] [address] [place] [address] documented in this encounter Visit Diagnoses Diagnosis Pain Suprapubic- Primary Pyelonephritis Acute Pain Flank Nausea And Vomiting documented in this encounter Administered Medications Inactive Administered Medications - up to 3 most recent administrations Medication Order MAR Action Action Date Dose Rate Site cefTRIAXone injection 1 g (ROCEPHIN) 1 g, intramuscular, Once, On Tue10/19/22 at 2014, For 1 dose, For IM administration ONLY. For IM injection ONLY Recon with NaCl 0.9% in the amount listed for the vial. Draw up and administer as indicated for the dose. 250 mg vial: add 0.9 mL 1 g vial: add 2.1 mL 500 mg vial: add 1 mL 2 g vial: add 4.2 mL , Drug Monitoring Program: Pharmacist to adjust medication dosing based on indication and drug clearance factors., Indications: Upper UTI (pyelonephritis) Given 10/19/2022 7:57 PM CDT 1 g Right Dorsogluteal documented in this encounter Care Teams Police Detention Attendant Relationship Specialty Start Date End Date Elsewhere, Pcp PCP - General 08/30/21 documented as of this encounter
--- OUTSIDE RECORDS SUMMARY | 2023-05-23 10:42 | XMS_ITS | Encounter Summary ---
Author Name Unknown Organization [facility] Address [address] [place] [address] Care Team Providers Care Facility Assistant Name Role Phone Elsewhere, Pcp Primary Care Provider Unavailabl e Reason for Visit * Reason Onset Date Comments Vaginal Bleeding 11/20/2022 Encounter Details Date Type Department Care Team (Late st Contact Info) Description 11/20/2022 Nurse Triage Department of Family Medicine in [place], [place] [address] [place] [phone] Ladi Paez, RDedraNDedra [address] [place] [phone] Vaginal Bleeding Social History Tobacco Use Types Packs/Day Years [...] often do you attend chur ch or religion services? Never 07/14/2022 Do you belong to any clubs o r organizations such as samaritan groups, unions, fraternal or athletic groups, or [...] care, and heating? Somewhat hard 07/14/2022 [facility] - Occupational Stress [...] place to sleep or slept in a nursing home (including now)? No 07/14/2022 Nutrition Answer Date [...] degree you have received? 12th grade 07/14/2022 Comments Yes Sex and Gender Information Value Date Recorded Sex Assigned at Not on file Gender Identity Not on file Sexual Orientation Not on file documented as of this encounter Miscellaneous Notes * Telephone Encounter - Ladi Paez, R.N. - 11/20/2022 2:31 PM CDT Chief Complaint / Reason for Call Patient is a 22 y.o. female calling regarding Vaginal Bleeding. Assessment Concern: Pt had a positive test on Tuesday and today is having light pink discharge today pt is having a light cramping. Present for: today Home cares tried: none Calling to request: advice The recommended disposition is See a health care provider within 4 hours. Reason for Disposition [1] Constant abdominal pain AND [2] present > 2 hours Protocols used: - Vaginal Bleeding Less Than 20 Weeks [id number] Care Advice Patient/Caregiver understands and will follow care advice?: Yes, able to teach back SEE HCP (OR PCP TRIAGE) WITHIN 4 HOURS: BRING A TOWEL FOR THE CAR RIDE (FOR THE BLEEDING): * Place a menstrual pad inside your underwear. * Bring a towel for the car ride; you may wish to put it on the seat of your car. CALL BACK IF: * You become worse documented in this encounter Plan of Treatment Not on file documented as of this encounter Visit Diagnoses Not on filedocumented in this encounter Care Teams Facility Assistant Relationship Specialty Start Date End Date Elsewhere, Pcp PCP - General 08/30/21 documented as of this encounter
--- OUTSIDE RECORDS SUMMARY | 2023-05-23 10:42 | XMS_ITS | Encounter Summary ---
Author Name Unknown Organization [facility] Address [address] [place] [address] Care Team Providers Care Pharmaceutical Detailer Name Role Phone Elsewhere, Pcp Primary Care Provider Unavailabl e Reason for Visit * Reason Comments Threatened Miscarriage Pt presents with a positive test from Wednesday 11/15, LMP 10/18. Pt states she has vaginal bleeding that started this morning, she noticed it when wiping, initially it was light pink in color but has since turned to a brighter red color. Pt states she only really notices it when wiping but did find some blood to be in her underwear. Pt also c/o left sided very light period cramping Encounter Details Date Type Department Care Team (Late st Contact Info) Description 11/20/2022 2:51 PM CDT - 11/20/2022 5:22 PM CDT Emergency [facility] [address] [place] [phone] Oswaldo Hernandez M.D. [address] [place] [phone] Threatened (HCC) (Primary Dx) Discharge Disposition: Home or Self [...] often do you attend chur ch or orthodox services? Never 07/14/2022 Do you belong to any clubs o r organizations such as zoroastrian groups, unions, fraternal or athletic groups, or [...] medical care, and heating? Somewhat hard 07/14/2022 [facility] [place] of Occupat ional Health - Occupational Stress [...] place to sleep or slept in a halfway (including now)? No 07/14/2022 Nutrition Answer Date [...] Sign Reading Time Taken Comments Blood Pressure 82/74 11/20/2022 5:15 PM CDT Pulse 92 11/20/2022 5:15 PM CDT Temperature 37 ??C (98.6 ??F) 11/20/2022 5:15 PM CDT Respiratory Rate 18 11/20/2022 5:15 PM CDT Oxygen Saturation 98% 11/20/2022 5:15 PM CDT Inhaled Oxygen Concentration - - Weight 51.3 kg (113 lb) 11/20/2022 2:55 PM CDT Height 162.6 cm (5' 4) 11/20/2022 2:55 PM CDT Body Mass Index 19.4 11/20/2022 2:55 PM CDT documented in this encounter Discharge Instructions * Discharge Instructions* Oswaldo Hernandez M.D. - 11/20/2022 5:11 PM CDT Contact your primary care/OBGYN provider on TuesdayNovember 22 for repeat quantitative beta hCG * Attachments The following attachments cannot be sent through Care Everywhere. * Threatened Miscarriage [id number] (Brazilian) documented in this encounter Medications at Time of Discharge Medication Sig Dispensed Refills Start Date End Date propranoloL (INDERAL LA) 60 mg 24 hr capsule Take 1 capsule (60 mg total) by mouth daily. 30 capsule 11 07/14/2022 07/14/2023 rizatriptan (MAXALT) 10 mg tablet Take 10 mg by mouth every 2 (two) hours as needed. 0 06/30/2022 rizatriptan POULTRY BREEDER (MAXALT-POULTRY BREEDER) 10 mg disintegrating tablet TAKE 1 TABLET BY MOUTH AT ONSET OF HEADACHE , MAY REPEAT AFTER 2 HOURS MAX2/DAY 0 08/26/2022 cefdinir (OMNICEF) 300 mg capsule Take 1 capsule (300 mg total) by mouth 2 (two) times a day. 20 capsule 0 10/19/2022 02/19/2023 ondansetron (ZOFRAN) 4 mg tablet Take 1 tablet (4 mg total) by mouth every 6 (six) hours as needed for nausea or vomiting. 20 tablet 0 06/08/2022 02/19/2023 ondansetron ODT (ZOFRAN-ODT) 4 mg disintegrating tabletIndications:Nausea And Vomiting Dissolve 1 tablet (4 mg total) in the mouth every 8 (eight) hours as needed for nausea or vomiting. 30 tablet 0 10/19/2022 02/19/2023 penicillin V potassium (VEETIDS) 500 mg tabletIndications:Sore Throat Take 1 tablet (500 mg total) by mouth 2 (two) times a day. 20 tablet 0 08/29/2022 02/19/2023 documented as of this encounter ED Notes * Oswaldo Hernandez M.D. - 11/20/2022 5:22 PM CDT SUBJECTIVE CHIEF COMPLAINT/REASON FOR VISIT Threatened Miscarriage (Pt presents with a positive test from Wednesday 11/15, LMP 10/18. Pt states she has vaginal bleeding that started this morning, she noticed it when wiping, initially it was light pink in color but has since turned to a brighter red color. Pt states she only really notices it when wiping but did find some blood to be in her underwear. Pt also c/o left sided very lightperiod cramping) HISTORY OF PRESENT ILLNESS 22-year-old female G [id number] with last menstrual period October 18 presents to the emergency department for evaluation of blood-tinged vaginal discharge with home positive test. Patient states on November 15 she would a positive test at home, this morning noticed a small amount of vaginal pink tinged discharge, light pink in color though has become more bright red throughout the day. No dysuria polyuria. Patient does note the sensation of very light menstrual cramping over the last 8 hours. No fevers or chills. Here for evaluation History provided by: Patient REVIEW OF SYSTEMS Constitutional: Negative for chills and fever. HENT: Negative. Respiratory: Negative for cough, chest tightness and shortness of breath. Gastrointestinal: Positive for abdominal pain (Cramping, as noted in HPI). Negative for nausea and vomiting. Genitourinary: Negative. Musculoskeletal: Negative. Skin: Negative for rash and wound. OBJECTIVE Initial Vitals Temperature 11/20/22 1455 37 ??C Pulse Rate 11/20/22 1445 94 Heart Rate -- Resp Rate 11/20/22 1455 16 Blood Pressure 11/20/22 1445 117/67 SpO2 11/20/22 1445 100 % Pain Score 11/20/22 1455 0 - No pain PHYSICAL EXAMINATION Constitutional: Nursing note and vitals reviewed. Vital signs are normal. She is cooperative. Non-toxic appearance. She does not have a sickly appearance. She does not appear ill. No distress. HENT: Head: Normocephalic. Mouth/Throat: Oropharynx is clear and moist. Neck: Neck supple. Cardiovascular: Normal rate and regular rhythm. Pulmonary/Chest: Effort normal. Genitourinary: Vagina normal. Pelvic exam was performed with patient supine. Genitourinary Comments: Examination performed in the presence of nursing staff at all times. There is a small amount of blood-tinged mucus in the posterior fornix, with no blood noted from the cervical os this time Musculoskeletal: Cervical back: Neck supple. Neurological: Alert. Skin: Skin is warm and dry. No rash noted. Psychiatric: She has a normal mood and affect. ASSESSMENT/PLAN Assessment and Plan Impression: Threatened Plan: 22-year-old female, 2 para 1001 presents to the emergency department with last menstrual period October 18 after home positive test and blood-tinged vaginal discharge. Differential diagnosis discussed with the patient includes implantation bleed versus threatened /miscarriage. Quantitative hCG 5.0, advised patient to follow up with primary care/OBGYN for repeat hCG in 48 hours to expect doubling if is viable. Patient understood this recommendation, is inagreement with treatment plan, and all her current questions were answered her satisfaction prior to leaving the ER.. ED Course as of 11/21/22752 Sat Nov 20, 2022 1610 Mild anemia hemoglobin 11.4. HCT 5.0. Rh positive. 1630 CBC shows mild anemia hemoglobin 11.4. HCG 5.0. Final Diagnoses: as of 11/21/22752 Threatened (HCC) Oswaldo Hernandez M.D. 11/21/22752 documented in this encounter Plan of Treatment Not on file documented as of this encounter Procedures Procedure Name Priority Date/Time Associated Diagnosis Comments ABORH, RBC STAT 11/20/2022 3:47 PM CDT CBC WITH DIFFERENTIAL, B STAT 11/20/2022 3:47 PM CDT HUMAN CHORIONIC GONADOTROPIN (HCG), ALDA SILVA 11/20/2022 3:47 PM CDT documented in this encounter Results * ABO/Rh, RBC (11/20/2022 3:47 PM CDT) ABO Group O 11/20/2022 4:5 2 PM CDT NPRG Rh Type POS 11/20/2022 4:5 2 PM CDT NPRG Blood (Blood, Venous) 11/20/2022 3:47 PM CDT 11/20/2022 3:48 PM CDT Oswaldo Hernandez M.D. LAB BLOOD BANK TEST ORDERABLES [facility] [address] [place] [address], [facility] NPRG [facility] [address] [place] [address] * (ABNORMAL) CBC with Differential, Blood (11/20/2022 3:47 PM CDT) Hemoglobin 11.4(L) 11.6 - 15.0 g/dL 11/20/2022 3:52 PM CDT NPRG Hematocrit 34.5(L) 35.5 - 44.9 % 11/20/2022 3:52 PM CDT NPRG Erythrocytes 3.74(L) 3.92 - 5.13 x10(12)/L 11/20/2022 3:52 PM CDT NPRG MCV 92.2 78.2 - 97.9 fL 11/20/2022 3:52 PM CDT NPRG RBC Distrib Width 12.5 12.2 - 16.1 % 11/20/2022 3:52 PM CDT NPRG Platelet Count 233 157 - 371 x10(9)/L 11/20/2022 3:52 PM CDT NPRG Leukocytes 7.0 3.4 - 9.6 x10(9)/L 11/20/2022 3:52 PM CDT NPRG Neutrophils 4.48 1.56 - 6.45 x10(9)/L 11/20/2022 3:52 PM CDT NPRG Lymphocytes 1.96 0.95 - 3.07 x10(9)/L 11/20/2022 3:52 PM CDT NPRG Monocytes 0.44 0.26 - 0.81 x10(9)/L 11/20/2022 3:52 PM CDT NPRG Eosinophils 0.07 0.03 - 0.48 x10(9)/L 11/20/2022 3:52 PM CDT NPRG Basophils 0.04 0.01 - 0.08 x10(9)/L 11/20/2022 3:52 PM CDT NPRG Blood (Blood, Venous) 11/20/2022 3:47 PM CDT 11/20/2022 3:48 PM CDT Oswaldo Hernandez M.D. LAB BLOOD ADD-ON [facility] [address] [place] [address], [place] NPRG [address] [address] * (ABNORMAL) hCG (Human Chorionic Gonadotropin), Quantitative, (11/20/2022 3:47 PM CDT) HCG, Quantitative, , P 5.0(H) <5 IU/L 11/20/2022 4:07 PM CDT NPRG Blood (Blood, Venous) 11/20/2022 3:47 PM CDT 11/20/2022 3:48 PM CDT Oswaldo Hernandez M.D. LAB BLOOD ADD-ON [facility] [address] [place] [address], [place] NPRG [place] [address] [place] [address] documented in this encounter Visit Diagnoses Diagnosis Threatened (HCC)- Primary documented in this encounter Care Teams Pharmaceutical Detailer Relationship Specialty Start Date End Date Elsewhere, Pcp PCP - General 08/30/21 documented as of this encounter
--- OUTSIDE RECORDS SUMMARY | 2023-05-23 10:42 | XMS_ITS | Encounter Summary ---
Author Name Unknown Organization [facility] Address [address] [place] [address] Care Team Providers Care Citrix Consultant Name Role Phone Elsewhere, Pcp Primary Care Provider Unavailabl e Reason for Visit * Reason Comments Flank Pain X6 days Urinary Retention Encounter Details Date Type Department Care Team (Late st Contact Info) Description 02/19/2023 11:45 AM CDT Office Visit Urgent Care, [facility], in [place], [place] [address] [place] [phone] Anamaria Lr APRN, C.N.P., M.S.N. [address] [place] [phone] Symptom Urinary (Primary Dx); Pain Back Discharge Disposition: Home or Self Care Social [...] How often do you attend chur or restorationist services? Never 07/14/2022 Do you belong to any clubs o r organizations such as catholic groups, unions, fraternal or athletic groups, [...] hard 07/14/2022 [facility] of Occupat ionva Health - Occupational Stress Questionnaire Answer Date [...] place to sleep or slept in a half-way (including now)? No 07/14/2022 Nutrition Answer Date [...] Sign Reading Time Taken Comments Blood Pressure 115/66 02/19/2023 11:12 AM CDT Pulse 93 02/19/2023 11:12 AM CDT Temperature 36.5 ??C (97.7 ??F) 02/19/2023 1 1:12 AM CDT Respiratory Rate - - Oxygen Saturation - - Inhaled Oxygen Concentration - - Weight 51.6 kg (113 lb 12.8 oz) 023 11:12 AM CDT Height - - Body Mass Index 19.53 11/20/2022 2:55 PM CDT documented in this encounter Progress Notes * Anamaria Lr APRN, MariahNYanira., M.S.N. - 02/19/2023 11:45 AM CDT SUBJECTIVE CHIEF COMPLAINT / REASON FOR VISIT Flank Pain (X6 days ) and Urinary Retention HISTORY OF PRESENT ILLNESS Deanna Garcia is a 22 y.o. female who presents for evaluation of back pain. The patient comes in today stating that she has had some back pain on the right side which has been constant and around 5/10 at its worst on the pain scale. She states sometimes she has left-sided pain as well. She states it is worse with movement on both sides. 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 She states she is a history of previous kidney infections and was seen in October until she had a kidney infection, it looks like the urine culture however did come back negative therefore she did not actually have an infection at the time. She denies any concern for vaginal discharge or sexually transmitted diseases. She is having unprotected intercourse. Her last menstrual period was 01/31/2023 and it was normal. She does state that she had a miscarriage in November. She denies any abdominal pain nausea, vomiting or fevers. She does states sometimes it feels like she is not fully emptying her bladder when she urinates but she is not having any urgency, frequency or burning on urination. The patient's social history, problem list, medications and allergies were reviewed in the electronic medical record. REVIEW OF SYSTEMS A brief review of systems was negative except for that mentioned in the history of present of illness. The patient's social history, medical history, problem list, medications and allergies were reviewed in the electronic medical record. OBJECTIVE VITAL SIGNS BP 115/66 Pulse 93 Temp 36.5 ??C (Temporal) Wt 51.6 kg LMP 10/18/2022 (Exact Date) BMI 19.53 kg/m?? PHYSICAL EXAMINATION Constitutional General: She is not in acute distress. Appearance: Normal appearance. She is not toxic-appearing. Cardiovascular Rate and Rhythm: Normal rate and regular rhythm. Heart sounds: Normal heart sounds. Pulmonary Effort: Pulmonary effort is normal. Breath sounds: Normal breath sounds. Abdominal General: Bowel sounds are normal. There is no distension. Palpations: There is no mass. Tenderness: There is no right CVA tenderness, left CVA tenderness, guarding or rebound. Musculoskeletal General: Normal range of motion. Comments: The patient's right lower back pain is mostly below the flank over the right lower back. There is no reproducible pain over the flank on either the right or the left side. Skin Findings: No rash. Neurological Mental Status: She is alert. DIAGNOSTICS Recent Results (from the past 72 hour(s)) Urinalysis with Microscopic if Indicated Collection Time: 02/19/23 11:13 AM Result Value Source Urine, Urine, Midstream Clarity Clear Color Yellow Blood Trace (A) Nitrite Negative Leukocyte Esterase Negative Protein Negative Glucose Negative Ketones, QI(U) Negative Bilirubin Negative pH 6.0 Specific [place] 1.025 Urobilinogen 0.2 Microscopic Manual Collection Time: 02/19/23 11:13 AM Result Value White Blood Cells 4-10 Red Blood Cells Occ-2 Squamous Cells 31-40 Bacteria Present (A) ASSESSMENT / PLAN #1 Symptom Urinary #2 Pain Back The patient was reassured that her urinalysis came back negative for a urinary tract infection. Theurine culture is currently pending and she will be notified via the patient online portal if she does have an infection that needs antibiotics. We discussed this is unlikely. Her symptoms seem to be more consistent with a muscle strain as her back pain is worse with movement. I have suggested Tylenol or ibuprofen as needed and follow-up for any ongoing or worsening symptoms. Patient agrees with plan and verbalizes understanding of plan. Patient was provided verbal and written education and has no further questions or concerns. She will follow up as needed or at the next scheduled return visit. She will call the clinic if there are any further questions or concerns in the meantime. documented in this encounter Plan of Treatment Not on file documented as of this encounter Procedures Procedure Name Priority Date/Time Associated Diagnosis Comments URINALYSIS WITH MICROSCOPIC IF INDICATED, U STAT 02/19/2023 11:13 AM CDT Symptom Urinary HC URINALYSIS AUTO W MICRO STAT 02/19/2023 11:13 AM CDT BACTERIAL CULTURE, AEROBIC + SUSC, URINE STAT 02/19/2023 11:13 AM CDT Symptom Urinary documented in this encounter Results * (ABNORMAL) Bacterial Culture, Aerobic + Susceptibility, Urine (02/19/2023 11:13 AM CDT) Urine Culture Mixed microbiota (A) 02/20/2023 12:16 PM CDT MKTO Urine (Urine, Midstream) 02/19/2023 11:13 AM CDT 02/19/2023 4:47 PM CDT Comment:Specimen Source Site : Urine Anamaria Lr APRN, C.N.P., M.S.N. LAB M [facility] - GENERAL ORDERABLES Performing Organization Address [facility] Co de Phone Number [facility] [address] [place] [address], [facility] MKTO [facility] [place] [address] [place] [address] * (ABNORMAL) Microscopic Manual (02/19/2023 11:13 AM CDT) White Blood Cells 4-10 /hpf 02/19/2023 11:37 AM CDT NPRG Comment: ----REFERENCE VALUE---- Males: 0-3 Females: 0-10 Unknown: 0-10 Red Blood Cells Occ-2 0 - 2 /hpf 02/19/2023 11:37 AM CDT NPRG Squamous Cells 31-40 /hpf 02/19/2023 11:37 AM CDT NPRG Bacteria Present(A) None Seen 02/19/2023 11:37 AM CDT NPRG Urine 02/19/2023 11:1 3 AM CDT 02/19/2023 11:21 AM CDT Mariah Thomas APRNNDedraP., M.S.N. LAB U RINE ORDERABLES Performing Organization Address [facility]/ZIP Co de Phone Number [facility] [address] [place] [address], [facility] NPRG [facility] [address] [place] [address] * (ABNORMAL) Urinalysis with Microscopic if Indicated (02/19/2023 11:13 AM CDT) Source Urine, Urine, Midstream 02/19/2023 11:21 AM CDT NPRG Clarity Clear Clear 02/19/2023 11:24 AM CDT NPRG Color Yellow 02/19/2023 11:24 AM CDT NPRG Comment: ----REFERENCE VALUE---- Colorless Yellow Kelly Blood Trace(A) Negative 02/19/2023 11:24 AM CDT NPRG Nitrite Negative Negative 02/19/2023 11:24 AM CDT NPRG Leukocyte Esterase Negative Negative 02/19/2023 11:24 AM CDT NPRG Protein Negative mg/dL 02/19/2023 11:24 AM CDT NPRG Comment: ----REFERENCE VALUE---- Negative Trace Glucose Negative Negative mg/dL 02/19/2023 11:24 AM CDT NPRG Ketones, QI(U) Negative Negative mg/dL 02/19/2023 11:24 AM CDT NPRG Bilirubin Negative Negative 02/19/2023 11:24 AM CDT NPRG pH 6.0 5.0 - 8.0 02/19/2023 11:24 AM CDT NPRG Specific [place] 1.025 1.001 - 1.035 02/19/2023 11:24 AM CDT NPRG Urobilinogen 0.2 0.2 - 1.0 mg/dL 02/19/2023 11:24 AM CDT NPRG Urine (Urine, Midstream) 02/19/2023 11:13 AM CDT 02/19/2023 11:21 AM CDT Anamaria Lr APRN, C.N.P., M.S.N. LAB U RINE ORDERABLES [facility] [address] [place] [address], [facility] NPRG [facility] [address] [place] [address] documented in this encounter Visit Diagnoses Diagnosis Symptom Urinary- Primary Pain Back documented in this encounter Care Teams Citrix Consultant Relationship Specialty Start Date End Date Elsewhere, Pcp PCP - General 08/30/21 documented as of this encounter
--- NOTE | 2023-05-23 11:02 | W.ANESCHARGE ---
Anesthesia Charges Start Date/Time Anesthesia Start Date: 05/23/23 Anesthesia Start Time: 10:50 Stop Date/Time Anesthesia Stop Date: 05/23/23 Anesthesia Stop Time: 11:30
--- NOTE | 2023-05-23 12:25 | W.ANESCHARGE ---
Anesthesia Charges Start Date/Time Anesthesia Start Date: 05/23/23 Anesthesia Start Time: 10:50 Stop Date/Time Anesthesia Stop Date: 05/23/23 Anesthesia Stop Time: 11:30
== END 2023-05-23 10:09 | disposition home or self-care (01) ==
LOC: OP CLINIC 10:09
PROVIDERS: PCP Family Medicine; Visit Provider Internal Medicine
DX: R10.13 Epigastric pain (principal); R10.84 Generalized abdominal pain
CPT/HCPCS: 00813; 43239; 45380; 88305; J2704

== ENCOUNTER 2023-07-27 14:05 | Outpatient (CLI) | payer MEDICAID, SELFPAY ==
[2023-07-27 18:57] LABS: Chlamydia DNA Amplified* NOT DETECTED (No Detected); GC DNA Amplified* NOT DETECTED (No Detected)
== END 2023-07-27 14:06 | disposition home or self-care (01) ==
PROVIDERS: PCP Family Medicine; Visit Provider Registered Nurse
DX: Z34.91 Encounter for supervision of normal pregnancy, unspecified, first trimester (principal); Z3A.08 8 weeks gestation of pregnancy
CPT/HCPCS: 76817; 86592; 86703; 86704; 86706; 86762; 86787; 86803; 86850; 86900; 86901; 87086; 87340; 87491; 87591

== ENCOUNTER 2023-09-01 10:31 | Outpatient (CLI) | payer MEDICAID, SELFPAY ==
--- OUTSIDE RECORDS SUMMARY | 2023-09-02 06:19 | XMS_ITS | Clinical Summary ---
Author Name Unknown Organization [facility] Address [address] [place] [address] Care Team Providers Care Digital Sales Assistant Name Role Phone Elsewhere, Pcp Primary Care Provider Unavailabl e Source Comments Patient records contain information from all sites at [facility]. For routine questions regarding patient records, call [phone] during business hours, M-F 8:00 AM - 5:00 PM Central Time. Record requests for emergency care only can be directed to [phone] at any time.[facility] Allergies Active Allergy Reactions Criticality Noted Date Comments Ondansetron GI intolerance 06/08/2022 ODT and liquid forms only, cause n/v. Tolerates IV and oral pill formulations. Medications Medication Sig Dispensed Refills Start Date End Date Status omeprazole (PriLOSEC) [address] capsule Take 1 capsule (40 mg total) by mouth every morning before breakfast. 30 capsule 2 06/07/2022 Active Additional Information Patient not taking.Informant: Self, Reported on 2023 rizatriptan (MAXALT) 10 mg tablet Take 10 mg by mouth every 2 (two) hours as needed. 06/30/2022 Active propranoloL (INDERAL LA) 60 mg 24 hr capsule Take 1 capsule (60 mg total) by mouth daily. 30 capsule 11 07/14/2022 Active rizatriptan SERVICE GIRL (MAXALT-SERVICE GIRL) 10 mg disintegrating tablet TAKE 1 TABLET BY MOUTH AT ONSET OF HEADACHE , MAY REPEAT AFTER 2 HOURS MAX2/DAY 08/26/2022 Active pantoprazole (PROTONIX) 20 mg EC tablet Take 20 mg by mouth every morning before breakfast. Active mvdnsyw-Nb-zmwc-FA (VINATE ONE) 60 mg iron-1 mg per tablet Take 1 tablet by mouth daily. Active ferrous sulfate (IRON ORAL) Take by mouth. 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 Pain Epigastric Discharge Disposition: Home or Self Care 2023 9:45 AM CDT Comprehensive Visit Department of Gastroenterology in [address] [phone] Anjali Guy APRN, C.N.P., M.S.N. Nausea (Primary Dx); Pain Epigastric Discharge Disposition: Home or Self Care 08/11/2023 Clinical Communication Department of Gastroenterology in [place] [id number] [place] [phone] Johny Leavitt R.N. GI Chart Prep 08/02/2023 10:50 AM CDT - 08/02/2023 12:55 PM CDT [facility] [address] [place] [phone] Oswaldo Hernandez M.D. Nausea And Vomiting (Primary Dx); Dehydration; Migraine Unspecified Not Intractable Without Status Migrainosus Discharge Disposition: Home or Self Care 06/15/[address] [facility] [address] [place] [address] Shalonda Barrett M.D. Pain Abdominal NOS (Primary Dx) 06/08/[address] [facility] [address] [place] [address] Shalonda Barrett M.D. Abdominal Pain (Primary Dx) from Last 3 Months Immunizations Name Administration [...] drink = 0.6 oz pur e alcohol) [facility] Context Relevantities Answer Date Recorded In the past 12 months has e [employer], oil, or water [employer] threatened to shut off services in your home? No 08/17/2023 Humiliation, Afraid, Rape, and Kick questionnair e [...] How often do you attend chur or caodaism services? Never 07/14/2022 Do you belong to any clubs o r organizations such as sikhism groups, unions, fraternal or athletic groups, or [...] medical care, and heating? Somewhat hard 07/14/2022 [facility] of Occupat ional [facility] - Occupational Stress Questionnaire Answer Date Recorded [...] exercise (like a brisk walk)? 5 days 08/17/2023 On average, how many minutes do you engage in exercise at this level? 60 min 08/17/2023 Hunger Vital Sign Answer Date Recorded Within the past 12 months, y ou worried that your food would run out before you got the money to buy more. Never true Within the past 12 months, t he food you bought just didn't last and you didn't have money to get more. Sometimes true 02/2024 PRAPARE - Transportation Answer Date Re corded In the past 12 months, has l ack of transportation kept you from medical appointments or from getting medications? No 08/07 In the past 12 months, has l ack of transportation kept you from meetings, work, or from getting things needed for daily living? No 08/17/2023 Nutrition Answer Date Recorded Nutrition: EVOO Fat Source No 08/16 On average, how many serving s of fruits and vegetables do you eat per day (serving size is equal to 1 cup or approximately the size of a tennis ball)? 3-5 08/17/2023 Dental Answer Date Recorded Dental: Regular Dentist No 07/15/19 Employment Answer Date Recorded Employment status Employed and actively working without restrictions 08/17/2023 Housing Stability Answer Date Recorded What is your living situation today? I have a [facility] [place] place to live 08/17/2023 Education Answer Date Recorded What is the highest level of school you have completed or the highest degree you have received? 12th grade 07/14/2022 Estimated Date of Delivery Comme nts Yes 03/06/2024 Sex and Gender Information Value Date Recorded Sex Assigned at Female 08/17/2023 8:03 PM CDT Gender Identity Female 08/17/2023 8:03 PM CDT Sexual Orientation Straight 08/17/2023 8: 03 PM CDT Last Filed Vital Signs Vital Sign Reading Time Taken Comments Blood Pressure 106/65 2023 8:54 AM CDT Pulse 75 2023 8:54 AM CDT Temperature 37.1 ??C (98.8 ??F) 08/02/2023 10:56 AM C DT Respiratory Rate 18 08/02/2023 10:56 AM CDT Oxygen Saturation 100% 08/02/2023 12:45 PM CDT Inhaled Oxygen Concentration - - Weight 50 kg (110 lb 3.7 oz) 2023 8:54 AM CDT Height 162.6 cm (5' 4.02) 2023 8:54 AM CD T Body Mass Index 18.91 2023 8:54 AM CDT Plan of Treatment Health Maintenance Due Date Last Done Comments Chlamydia and Gonorrhea Screening 2000 HIV Screening 2000 Hepatitis C Screening 2000 COVID-19 Vaccine ( season) 2023 Influenza Vaccine (#1) 2023 02/19/2019, 2001 Depression Screening (Annual PHQ-2) 05/09/2023 RSV vaccine - (32-36 weeks) or 60+ years (1 - Risk 1-dose series) 01/10/2024 Cervical Cancer Screening 03/24/2026 03/24/2023 DTaP,Tdap,and Td Vaccines (8 - Td or Tdap) 11/28/2029 11/29/2019, 12/25/2012, 09/08/2004, Additional history exists Hepatitis B Vaccines Completed 11/22/2001, 11/22/2001, 2000, Additional history exists Pneumococcal vaccine (0-64 years) Aged Out 11/22/2001, 2000, 2000 No longer eligible based on patient's age to complete this topic HPV Vaccines Completed 02/20/2019, 12/07, 12/25/2012 Procedures Procedure Name Priority Date/Time Associated Diagnosis Comments CALPROTECTIN, F Routine 2023 7:29 PM CDT Pain Epigastric HC T3 TOTAL Routine 2023 10:47 AM CDT HC T4 FREE Routine 2023 10:47 AM CDT MAGNESIUM, S Routine 2023 10:47 AM CDT Pain Epigastric THYROID FUNCTION CASCADE, S Routine 2023 10:47 AM CDT Pain Epigastric C-REACTIVE PROTEIN (CRP), S/P Routine 2023 10:47 AM CDT Pain Epigastric BASIC METABOLIC PANEL, S/P STAT 08/02/2023 11:02 AM CDT CBC WITH DIFFERENTIAL, B STAT 08/02/2023 11:02 AM CDT from Last 3 Months Results * Calprotectin, Feces (2023 7:29 PM CDT) Calprotectin, F <50.0 <50.0 (Normal) mcg/g 08/25/2023 5:37 PM CDT [facility] Stool (Stool) 2023 7:2 9 PM CDT 08/25/2023 11:19 AM CDT Anjali Guy APRN C.N.P., M.S. N. LAB BODY FLUIDS AND STOOLS ORDERABLES [facility] [address] [place] [address] [facility] [address] [place] [address] * T4 (Thyroxine), Free, Serum (2023 10:47 AM CDT) T4 (Thyroxine), Free, S 1.4 0.9 - 1.7 ng/dL 2023 12:56 PM CDT MKTO Comment: Biotin has been identified by the tenter as a potential interfering substance. Higher concentrations of biotin may be found in multivitamins, hair/nail supplements, and workout supplements. If the result does not match clinical observations, repeat testing after patient refrains from the use of supplements for at least 12 hours. Blood 2023 10:4 7 AM CDT 2023 10:51 AM CDT Mariah Wren APRNNYanira., M.S. N. LAB BLOOD ADD-ON [facility] [address] [place] [address], [place] MKTO [facility] [place] [address] [place] [address] * T3 (Triiodothyronine), Total, Serum (2023 10:47 AM CDT) T3 (Triiodothyroni ne), Total, S 193 80 - 200 ng/dL 08/24/2023 3:21 PM CDT DTL Blood 2023 10:4 7 AM CDT 08/24/2023 2:45 PM CDT Mariah Wren APRNN.P., M.S. N. LAB BLOOD NON ADD-ON [facility] [address] [place] [address], [place] [facility] [address] [place] [address] * (ABNORMAL) Thyroid Function [place] (2023 10:47 AM CDT) TSH, Sensitive <0.03(L) 0.3 - 4.2 mIU/L 2023 12:26 PM CDT MKTO Blood (Blood, Venous) 2023 10:47 AM CDT 2023 10:51 AM CDT Anjali Guy APRN, C.N.P., M.S. N. LAB BLOOD ADD-ON Performing Organization Address City/[facility]/ZIP Co de Phone Number [facility] [address] [place] [address], [place] [address] * CRP (C-Reactive Protein) (2023 10:47 AM CDT) [facility] C-Reactive Protein (CRP), P <3.0 <5.0 mg/L 2023 11:12 AM CDT MKTO Blood (Blood, Venous) 2023 10:47 AM CDT 2023 10:51 AM CDT Anjali Guy APRN, C.N.P., M.S. N. LAB BLOOD ADD-ON Performing Organization Address City/[facility]/ZIP Co de Phone Number [facility] [address] [place] [address], [place] [address] * Magnesium (2023 10:47 AM CDT) [facility] Magnesium, P 2.0 1.7 - 2.3 mg/dL 2023 11:12 AM CDT MKTO Blood (Blood, Venous) 2023 10:47 AM CDT 2023 10:51 AM CDT Anjali Guy APRN, C.N.P., M.S. N. LAB BLOOD ADD-ON [facility] [address] [place] [address], [facility] MKTO [facility] [place] [address] [place] [address] * (ABNORMAL) CBC with Differential, Blood (08/02/2023 11:02 AM CDT) Hemoglobin 12.8 11.6 - 15.0 g/dL 08/02/2023 11:09 AM CDT NPRG Hematocrit 36.7 35.5 - 44.9 % 08/02/2023 11:09 AM CDT NPRG Erythrocytes 4.20 3.92 - 5.13 x10(12)/L 08/02/2023 11:09 AM CDT NPRG MCV 87.4 78.2 - 97.9 fL 08/02/2023 11:09 AM CDT NPRG RBC Distrib Width 11.9(L) 12.2 - 16.1 % 08/02/2023 11:09 AM CDT NPRG Platelet Count 188 157 - 371 x10(9)/L 08/02/2023 11:09 AM CDT [facility]G Leukocytes 7.9 3.4 - 9.6 x10(9)/L 08/02/2023 11:09 AM CDT NPRG Neutrophils 6.04 1.56 - 6.45 x10(9)/L 08/02/2023 11:09 AM CDT NPRG Lymphocytes 1.53 0.95 - 3.07 x10(9)/L 08/02/2023 11:09 AM CDT NPRG Monocytes 0.33 0.26 - 0.81 x10(9)/L 08/02/2023 11:09 AM CDT NPRG Eosinophils <0.04 0.03 - 0.48 x10(9)/L 08/02/2023 11:09 AM CDT NPRG Basophils <0.04 0.01 - 0.08 x10(9)/L 08/02/2023 11:09 AM CDT NPRG Blood (Blood, Venous) 08/02/2023 11:02 AM CDT 08/02/2023 11:05 AM CDT Oswaldo Hernandez M.D. LAB BLOOD ADD-ON [facility] [address] [place] [address], [place] NPRG [facility] [address] [place] [address] * (ABNORMAL) Basic Metabolic Panel (08/02/2023 11:02 AM CDT) Potassium, P 4.1 3.6 - 5.2 mmol/L 08/02/2023 11:23 AM CDT NPRG Sodium, P 135 135 - 145 mmol/L 08/02/2023 11:23 AM CDT NPRG Chloride, P 102 98 - 107 mmol/L 08/02/2023 11:23 AM CDT NPRG Bicarbonate, P 21(L) 22 - 29 mmol/L 08/02/2023 11:23 AM CDT NPRG Anion Gap, P 12 7 - 15 08/02/2023 11:23 AM CDT NPRG BUN (Blood Urea Nitrogen), P 8 6 - 21 mg/dL 08/02/2023 11:23 AM CDT NPRG Creatinine 0.51(L) 0.59 - 1.04 mg/dL 08/02/2023 11:23 AM CDT NPRG Estimated GFR (eGFR) >90 >=60 mL/min/BSA 08/02/2023 11:23 AM CDT NPRG Comment: Estimated GFR calculated using the 2020 CKD_EPI creatinine equation. Calcium, Total, P 9.3 8.6 - 10.0 mg/dL 08/02/2023 11:23 AM CDT NPRG Glucose, P 111 70 - 140 mg/dL 08/02/2023 11:23 AM CDT NPRG Blood (Blood, Venous) 08/02/2023 11:02 AM CDT 08/02/2023 11:05 AM CDT Oswaldo Hernandez M.D. LAB BLOOD ADD-ON [facility] [address] [place] [address], [place] NPRG [facility] [address] [place] [address] from Last 3 Months Care Teams Digital Sales Assistant Relationship Specialty Start Date End Date Elsewhere, Pcp PCP - General 08/30/21
--- OUTSIDE RECORDS SUMMARY | 2023-09-02 06:19 | XMS_ITS | Encounter Summary ---
Author Name Unknown Organization [facility] Address [address] [place] [address] Care Team Providers Care Porcelain Enameling Supervisor Name Role Phone Elsewhere, Pcp Primary Care Provider Unavailabl e Reason for Referral * Outpatient (Routine) - Authorized Specialty Diagnoses / Procedures Referred By Contact Referred To Contact Gastroenterology and Hepatology Anjali Guy APRN, C.N.P., M.S.N. [address] [place] [phone] [facility] Referral ID Status Reason Start Date Expiration Date V isits Requested Visits Authorized [id number] Authorized 2023 02/20/2025 1 1 Reason for Visit * Reason Comments Abdominal Pain Consult * Outpatient (Routine) - Closed Specialty Diagnoses / Procedures Referred By Contact Referred To Contact Gastroenterology and Hepatology Diagnoses Pain Abdominal NOS Shalonda Barrett M.D. [address] [place] [phone] [facility] Referral ID Status Reason Start Date Expiration Date Visits Re quested Visits Authorized [id number] Closed 06/15/2023 12/14/2024 1 1 Encounter Details Date Type Department Care Team (Latest Contact Info) Description 2023 9:45 AM CDT Comprehensive Visit Department of Gastroenterology in [address] [phone] Anjali Guy APRN, C.N.P., M.S.N. [address] [place] [phone] Nausea (Primary Dx); Pain Epigastric Discharge Disposition: Home or Self Care Social History Tobacco Use Types Packs/Day Years Used Date Smoking Tobacco: Never Passive Smoke Exposure: Never Smokeless Tobacco: Never Alcohol Use Standard Drinks/Week Comments No 0 (1 standard drink = 0.6 oz pur e alcohol) [facility] Utilities Answer Date Recorded In the past 12 months has e electric, gas, oil, or water company threatened to shut off services in your [...] often do you attend chur ch or sabianist services? Never 07/14/2022 Do you belong to any clubs o r organizations such as episcopalian groups, unions, fraternal or athletic groups, or [...] medical care, and heating? Somewhat hard 07/14/2022 [facility] of Occupat ional Health - Occupational Stress [...] living situation today? I have a [facility] place to live 08/17/2023 Education Answer Date [...] Orientation Straight 08/17/2023 8: 03 PM CDT documented as of this encounter Last Filed Vital Signs Vital Sign Reading Time Taken Comments Blood Pressure 106/65 2023 8:54 AM CDT Pulse 75 2023 8:54 AM CDT Temperature - - Respiratory Rate - - Oxygen Saturation - - Inhaled Oxygen Concentration - - Weight 50 kg (110 lb 3.7 oz) 2023 8:54 AM CDT Height 162.6 cm (5' 4.02) 2023 8:54 AM CD T Body Mass Index 18.91 2023 8:54 AM CDT documented in this encounter Patient Instructions * Patient Instructions* Ladi Bowie, R.N. - 2023 9:45 AM CDT MICKIE for EGD and Colonoscopy along with Pathology SIBO and Fructose Breath Test Calprotectin stool testing For the Calprotectin stool sample: Tests for inflammation. This is a send out lab that we send to [place]. Please freeze this sample after collection and bring back to a [facility] lab within 2-3 days. PLEASE NOTE: The order for the stool sample will 30 days after you roll picker the stool kit. Please ensure prompt return on samples. [facility] labs are closed on the weekends. Follow up with GI provider in 3 months, please call GI scheduling at [phone] two months prior to your recommended follow-up appointment time to avoid a delay in your plan of care. documented in this encounter Consult Notes * Anjali Guy APRN, C.NDedraP., M.S.N. - 2023 9:45 AM CDT Patient Name: Deanna Garcia Date of : 2000 Date of encounter: 08/22/23 SUBJECTIVE CHIEF COMPLAINT / REASON FOR VISIT Abdominal pain and nausea HISTORY OF PRESENT ILLNESS Deanna Garcia is a 22 y.o. female who presents for abdominal pain and nausea. She is currently 12 weeks . The patient notes that in March of 2023 her GI complaints started. She has been seen multiple times in the ED for these complaints. The epigastric pain started in mid to early March. Since thattime she has also has nearly daily nausea and some episodes of emesis. The last episode of emesis was 2 weeks ago. She takes Zofran as needed and this does help her nausea. Most the time her pain is 3 to 4/10 but right before she vomits it is at its worse which is a 10/10. Not moving and laying in bed seem to help the pain and nausea. She has not noticed any blood in her vomit or dark or bloody stools. Normally she has loose stools but lately she has been more constipated, perhaps 1 BM every other day. She does have a history of previous H pylori, diagnosed at the age of 9 and 10. She has hadno fever. She did complete EGD and colonoscopy at an outside facility in May but I do not have these reports available for review. She tells me that H pylori, celiac, ulcer and IBD were ruled out. Her most recent imaging was completed in May 2023. FINDINGS: Normal liver, gallbladder, adrenal glands, kidneys, [...] enteritis or ileus. No other acute abnormality She had normal LFTs in May 2023. She denies any ETOH, tobacco or elicit drug use. She has a family history of crohn's disease in her grandmother. Another family member has celiac disease. The following portions of the patient's history were reviewed and updated as appropriate: allergies, current medications, family history, medical history, social history, surgical history and problemlist. REVIEW OF SYSTEMS A comprehensive review of systems was performed, and the positive symptoms are mentioned in the HPIabove. OBJECTIVE VITAL SIGNS Vitals: 08/22/23 0854 BP: 106/65 Patient Position: Sitting Pulse: 75 Height: 162.6 cm Weight: 50 kg Body mass index is 18.91 kg/m??. PHYSICAL EXAMINATION Vitals and nursing note reviewed. Constitutional Appearance: Normal appearance. She is normal weight. HENT Head: Normocephalic and atraumatic. Cardiovascular Rate and Rhythm: Normal rate. Pulmonary Effort: Pulmonary effort is normal. Neurological General: No focal deficit present. Mental Status: She is alert and oriented to person, place, and time. Mental status is at baseline. Psychiatric Mood and Affect: Mood normal. Behavior: Behavior normal. Thought Content: Thought content normal. DIAGNOSTICS Reviewed. ASSESSMENT / PLAN #1 Pain Abdominal NOS #2 Nausea - Gastroenterology & Hepatology Referral - Kit Collection; Future; Expected date: 2023 - CRP (C-Reactive Protein); Future; Expected date: 2023 - Calprotectin, Feces; Future; Expected date: 2023 - TSH - Magnesium - Kit Collection Other orders - Gastroenterology and Hepatology office visit (clinic); Future; Expected date: 11/21/2023 Ms. Garcia is a very pleasant 22 year old female who is currently 12 weeks presenting to the GI clinic today for evaluation of nausea and abdominal pain. Shared decision making was utilizedtoday and it was agreed upon to proceed with fecal calprotectin and CRP to assess for inflammation.While her colonoscopy ruled out large bowel IBD we can not exclude small bowel pathology and I am uncertain it is in the best interest to proceed with CT enterography while patient is 12 weeks . Additionally we will check TSH and magnesium as abnormalities of these can lead to nausea. SIBO and fructose breath tests will also be completed. We will also ask that patient complete a MICKIE so EGD, colonoscopy and pathology can be obtained and reviewed. GI follow up 3 months It was a pleasure seeing Ms. Garcia today. We answered her questions, and we would be happy to answer any further questions she has. I personally spent over half of a total 43 minutes [id number] with the patient in counseling and discussion and/or coordination of care as described above. Anjali Guy APRN, C.N.P., M.S.N. Gastroenterology and Hepatology [facility] documented in this encounter Plan of Treatment Scheduled Orders Name Type Priority Associated Diagnoses Orde r Schedule Kit Collection Lab Routine Pain Epigastric Expected: 2023, Expires: 11/20/2024 Kit Collection Lab Routine Pain Epigastric Ordered: 2023 Scheduled Referrals Name Type Priority Associated Diagnoses Order Schedule Gastroenterology and Hepatology office visit (clinic) Outpatient Referral Routine Expected: 11/21/2023, Expires: 11/20/2024 documented as of this encounter Results * Calprotectin, Feces (2023 7:29 PM CDT) Calprotectin, F <50.0 <50.0 (Normal) mcg/g 08/25/2023 5:37 PM CDT [facility] Stool (Stool) 2023 7:2 9 PM CDT 08/25/2023 11:19 AM CDT Anjali Guy APRN, C.N.P., M.S. N. LAB BODY FLUIDS AND STOOLS ORDERABLES [facility] [address] [place] [address] [facility] [address] [place] [address] * Magnesium (2023 10:47 AM CDT) Magnesium, P 2.0 1.7 - 2.3 mg/dL 2023 11:12 AM CDT [facility] Blood (Blood, Venous) 2023 10:47 AM CDT 2023 10:51 AM CDT Anjali Guy APRN, C.N.P., M.S. N. LAB BLOOD ADD-ON [facility] [address] [place] [address] * (ABNORMAL) Thyroid Function [place] (2023 10:47 AM CDT) TSH, Sensitive <0.03(L) 0.3 - 4.2 mIU/L 2023 12:26 PM CDT [facility] Blood (Blood, Venous) 2023 10:47 AM CDT 2023 10:51 AM CDT Anjali Guy APRN, C.N.P., M.S. N. LAB BLOOD ADD-ON Performing Organization Address City/[facility]/ZIP Co de Phone Number [facility] [address] [place] [address], [place] [address] * CRP (C-Reactive Protein) (2023 10:47 AM CDT) C-Reactive Protein (CRP), P <3.0 <5.0 mg/L 2023 11:12 AM CDT [facility] Blood (Blood, Venous) 2023 10:47 AM CDT 2023 10:51 AM CDT Anjali Guy APRN, C.N.P., M.S. N. LAB BLOOD ADD-ON [facility] [address] [place] [address], [place] [address], [facility] MKTO [facility] in [place] [address] [place] [address] documented in this encounter Visit Diagnoses Diagnosis Nausea- Primary Pain Epigastric documented in this encounter Care Teams Porcelain Enameling Supervisor Relationship Specialty Start Date End Date Elsewhere, Pcp PCP - General 08/30/21 documented as of this encounter
--- OUTSIDE RECORDS SUMMARY | 2023-09-02 06:19 | XMS_ITS | Encounter Summary ---
Author Name Unknown Organization [facility] Address [address] [place] [address] Care Team Providers Care Disability Program Navigator Name Role Phone Elsewhere, Pcp Primary Care Provider Unavailabl e Encounter Details Date Type Department Care Team (Latest Contact Info) Description 2023 10:40 AM CDT - 2023 11:59 PM CDT Hospital Encounter Department of Laboratory Medicine, Specialty Clinic, in [address] [phone] Anjali Guy, ARTURO, C.N.P., M.S.N. [address] [place] [phone] Pain Epigastric Discharge Disposition: Home or Self Care Social History Tobacco Use Types Packs/Day Years Used Date Smoking Tobacco: Never Passive Smoke Exposure: Never Smokeless Tobacco: Never Alcohol Use Standard Drinks/Week Comments No 0 (1 standard drink = 0.6 oz pur e alcohol) [facility] Utilities Answer Date Recorded In the past 12 months has e [employer], gas, oil, or water [employer] threatened to shut off services in your [...] How often do you attend chur or anabaptist services? Never 07/14/2022 Do you belong to any clubs o r organizations such as christian groups, unions, fraFriend Traveler or athletic groups, or school groups? No [...] medical care, and heating? Somewhat hard 07/14/2022 [facility] [place] of Occupat ional Health - Occupational Stress [...] your living situation today? I have a [facility] place to live 08/17/2023 Education Answer Date [...] PM CDT documented as of this encounter Medications at Time of Discharge Medication Sig Dispensed Refills Start Date End Date ferrous sulfate (IRON ORAL) Take by mouth. ondansetron ODT (ZOFRAN-ODT) 4 mg disintegrating tablet DISSOLVE ONE TABLET BY MOUTH EVERY 8 HOURS NEEDED FOR NAUSEA AND VOMITING 07/27/2023 pantoprazole (PROTONIX) 20 mg EC tablet Take 20 mg by mouth every morning before breakfast. zxexneg-Wq-fyki-FA (VINATE ONE) 60 mg iron-1 mg per tablet Take 1 tablet by mouth daily. rizatriptan (MAXALT) 10 mg tablet Take 10 mg by mouth every 2 (two) hours as needed. 06/30/2022 rizatriptan FRONT WINDOW CASHIER (MAXALT-FRONT WINDOW CASHIER) 10 mg disintegrating tablet TAKE 1 TABLET BY MOUTH AT ONSET OF HEADACHE , MAY REPEAT AFTER 2 HOURS MAX2/DAY 08/26/2022 SUMAtriptan (IMITREX) 50 mg tablet TAKE ONE TABLET BY MOUTH ONCE DAILY AT ONSET OF HEADACHE, MAY REPEAT WITH 1 TABLET AFTER 2 HOURS NEEDED -MAX OF 4 TABLETS PER 24 HOURS 08/02/2023 documented as of this encounter Plan of Treatment Not on file documented as of this encounter Procedures Procedure Name Priority Date/Time Associated Diagnosis Comments CALPROTECTIN, F Routine 2023 7:29 PM CDT Pain Epigastric HC T4 FREE Routine 2023 10:47 AM CDT HC T3 TOTAL Routine 2023 10:47 AM CDT THYROID FUNCTION CASCADE, S Routine 2023 10:47 AM CDT Pain Epigastric C-REACTIVE PROTEIN (CRP), S/P Routine 2023 10:47 AM CDT Pain Epigastric MAGNESIUM, S Routine 2023 10:47 AM CDT Pain Epigastric documented in this encounter Results * Calprotectin, Feces (2023 7:29 PM CDT) Calprotectin, F <50.0 <50.0 (Normal) mcg/g 08/25/2023 5:37 PM CDT [facility] Stool (Stool) 2023 7:2 9 PM CDT 08/25/2023 11:19 AM CDT Amena Wren APRN.N.P., M.S. N. LAB BODY FLUIDS AND STOOLS ORDERABLES [facility] [address] [place] [address] [facility] [address] [place] [address] * T3 (Triiodothyronine), Total, Serum (2023 10:47 AM CDT) T3 (Triiodothyroni ne), Total, S 193 80 - 200 ng/dL 08/24/2023 3:21 PM CDT DT Blood 2023 10:4 7 AM CDT 08/24/2023 2:45 PM CDT Mariah Wren APRNNYanira., M.S. N. LAB BLOOD NON ADD-ON [facility] [address] [place] [address], [place] [facility] [address] [place] [address] * T4 (Thyroxine), Free, Serum (2023 10:47 AM CDT) T4 (Thyroxine), Free, S 1.4 0.9 - 1.7 ng/dL 2023 12:56 PM CDT MKTO Comment: Biotin has been identified by the intern brand as a potential interfering substance. Higher concentrations of biotin may be found in multivitamins, hair/nail supplements, and workout supplements. If the result does not match clinical observations, repeat testing after patient refrains from the use of supplements for at least 12 hours. Blood 2023 10:4 7 AM CDT 2023 10:51 AM CDT Mariah Wren APRNNYanira., M.S. N. LAB BLOOD ADD-ON Performing Organization Address City/[facility]/ZIP Co de Phone Number [facility] [address] [place] [address], [place] MKTO [facility] [place] [address] [place] [address] * Magnesium (2023 10:47 AM CDT) Pathologist [facility] Magnesium, P 2.0 1.7 - 2.3 mg/dL 2023 11:12 AM CDT [facility] Blood (Blood, Venous) 2023 10:47 AM CDT 2023 10:51 AM CDT Mariah Wren APRNNYanira., M.S. N. LAB BLOOD ADD-ON [facility] [address] [place] [address], [place] [address] * (ABNORMAL) Thyroid Function [place] (2023 10:47 AM CDT) Pathologist [facility] TSH, Sensitive <0.03(L) 0.3 - 4.2 mIU/L 2023 12:26 PM CDT [facility] Blood (Blood, Venous) 2023 10:47 AM CDT 2023 10:51 AM CDT Mariah Wren APRNNYanira., M.S. N. LAB BLOOD ADD-ON [facility] [address] [place] [address], [address] [address] * CRP (C-Reactive Protein) (2023 10:47 AM CDT) Pathologist [facility] C-Reactive Protein (CRP), P <3.0 <5.0 mg/L 2023 11:12 AM CDT [facility] Blood (Blood, Venous) 2023 10:47 AM CDT 2023 10:51 AM CDT Anjali Guy APRN, C.N.P., M.S. N. LAB BLOOD ADD-ON [facility] [address] [place] [address], [facility] MKTO [facility] [place] [address] [place] [address] documented in this encounter Visit Diagnoses Diagnosis Pain Epigastric documented in this encounter Care Teams Disability Program Navigator Relationship Specialty Start Date End Date Elsewhere, Pcp PCP - General 08/30/21 documented as of this encounter
--- OUTSIDE RECORDS SUMMARY | 2023-09-02 06:19 | XMS_ITS ---
Author Name Unknown Organization [facility] Address [address] [place] [address] Care Team Providers Care Nurse Discharge Planner Name Role Phone Unavailable Unavailable Unavailable Surgery Details Not on file Complications Check Surgery Details section. Procedure Estimated Blood Loss Check Surgery Details section. Procedure Findings Check Surgery Details section. Procedure Specimens Taken Check Surgery Details section.
--- OUTSIDE RECORDS SUMMARY | 2023-09-02 06:19 | XMS_ITS | Referral Summary ---
Author Name Unknown Organization [facility] Address [address] [place] [address] Care Team Providers Care Headwaiter/Headwaitress Name Role Phone Elsewhere, Pcp Primary Care Provider Unavailabl e Source Comments Patient records contain information from all sites at [facility]. For routine questions regarding patient records, call [phone] during business hours, M-F 8:00 AM - 5:00 PM Central Time. Record requests for emergency care only can be directed to [phone] at any time.[facility] Encounters Date Type Department Care Team Description 2023 10:40 AM CDT - 2023 11:59 PM CDT Hospital Encounter Department of Laboratory Medicine, Specialty Clinic, in [address] Anjali Guy APRN, C.N.P., M.S.N. Pain Epigastric Discharge Disposition: Home or Self Care 2023 9:45 AM CDT Comprehensive Visit Department of Gastroenterology in [place] [phone] Anjali Guy APRN C.N.P., M.S.N. Nausea (Primary Dx); Pain Epigastric Discharge Disposition: Home or Self Care 08/11/2023 Clinical Communication Department of Gastroenterology in [address] [phone] Johny Leavitt R.N. GI Chart Prep 08/02/2023 10:50 AM CDT - 08/02/2023 12:55 PM CDT Emergency [facility] [address] [place] [phone] Oswaldo Hernandez M.D. Nausea And Vomiting (Primary Dx); Dehydration; Migraine Unspecified Not Intractable Without Status Migrainosus Discharge Disposition: Home or Self Care 06/15/2023 [facility] [address] [place] [address] Shalonda Barrett M.D. Pain Abdominal NOS (Primary Dx) 06/08/2023 [facility] [address] [place] [address] Shalonda Barrett M.D. Abdominal Pain (Primary Dx) from Last 3 Months Allergies Active Allergy [...] daily. 30 capsule 11 07/14/2022 Active rizatriptan STEWARD/STEWARDESS ROOM (MAXALT-STEWARD/STEWARDESS ROOM) 10 mg disintegrating tablet TAKE 1 TABLET BY MOUTH AT ONSET OF HEADACHE , MAY REPEAT AFTER 2 HOURS MAX2/DAY 08/26/2022 Active pantoprazole (PROTONIX) 20 mg EC tablet Take 20 mg by mouth every morning before breakfast. Active adkvtim-Xo-nops-FA (VINATE ONE) 60 mg iron-1 mg per [...] drink = 0.6 oz pur e alcohol) [facility] [employer] Answer Date Recorded In the past 12 months has e [id number], oil, or water [employer] threatened to shut off services in your [...] How often do you attend chur or scientology services? Never 07/14/2022 Do you belong to any clubs o r organizations such as mormon groups, unions, fraternal or athletic groups, or [...] medical care, and heating? Somewhat hard 07/14/2022 [facility] of Occupat ional [facility] - Occupational Stress Questionnaire Answer Date Recorded [...] 2023 8:54 AM CDT Plan of Treatment Not on file Procedures [...] <50.0 (Normal) mcg/g 08/25/2023 5:37 PM CDT [facility] Stool (Stool) 2023 7:2 9 PM CDT 08/25/2023 11:19 AM CDT Anjali uGy APRN, C.N.P., M.S. N. LAB BODY FLUIDS AND STOOLS ORDERABLES [facility] [address] [place] [address] [facility] [address] [place] [address] * T4 (Thyroxine), Free, Serum (2023 10:47 AM CDT) T4 (Thyroxine), Free, S 1.4 0.9 - 1.7 ng/dL 2023 12:56 PM CDT MK Comment: Biotin has been identified by the camp director as a potential interfering substance. Higher concentrations of biotin may be found in multivitamins, hair/nail supplements, and workout supplements. If the result does not match clinical observations, repeat testing after patient refrains from the use of supplements for at least 12 hours. Blood 2023 10:4 7 AM CDT 2023 10:51 AM CDT Anjali Guy APRN, C.N.P., M.S. N. LAB BLOOD ADD-ON [facility] [address] [place] [address], [facility] [place] [address] [place] [address] * T3 (Triiodothyronine), Total, Serum (2023 10:47 AM CDT) T3 (Triiodothyroni ne), Total, S 193 80 - 200 ng/dL 08/24/2023 3:21 PM CDT DT Blood 2023 10:4 7 AM CDT 08/24/2023 2:45 PM CDT Mariah Wren APRNNYanira., M.S. N. LAB BLOOD NON ADD-ON [facility] [address] [place] [address], [facility] [address] [place] [address] * (ABNORMAL) Thyroid Function [place] (2023 10:47 AM CDT) Pathologist [facility] TSH, Sensitive <0.03(L) 0.3 - 4.2 mIU/L 2023 12:26 PM CDT [facility] Blood (Blood, Venous) 2023 10:47 AM CDT 2023 10:51 AM CDT Mariah Wren APRNN.P., M.S. N. LAB BLOOD ADD-ON [facility] [address] [place] [address], [facility] [place] [address] [place] [address] * CRP (C-Reactive Protein) (2023 10:47 AM CDT) C-Reactive Protein (CRP), P <3.0 <5.0 mg/L 2023 11:12 AM CDT [facility] Blood (Blood, Venous) 2023 10:47 AM CDT 2023 10:51 AM CDT Anjali Guy APRN, C.N.P., M.S. N. LAB BLOOD ADD-ON Performing Organization Address City/[facility]/ZIP Co de Phone Number [facility] [address] [place] [address], [place] [address] * Magnesium (2023 10:47 AM CDT) Pathologist [facility] Magnesium, P 2.0 1.7 - 2.3 mg/dL 2023 11:12 AM CDT [facility] Blood (Blood, Venous) 2023 10:47 AM CDT 2023 10:51 AM CDT Anjali Guy APRN, C.N.P., M.S. N. LAB BLOOD ADD-ON Performing Organization Address [facility] Co de Phone Number [facility] [address] [place] [address], [place] [address] * (ABNORMAL) CBC with Differential, Blood (08/02/2023 [...] CDT Oswaldo Hernandez M.D. LAB BLOOD ADD-ON [facility] [address] [place] [address], [facility] NPRG [facility] [address] [place] [address] * (ABNORMAL) Basic Metabolic Panel (08/02/2023 11:02 AM CDT) [facility] Potassium, P 4.1 3.6 - 5.2 mmol/L [...] CDT Oswaldo Hernandez M.D. LAB BLOOD ADD-ON [facility] [address] [place] [address], [facility] NPRG [facility] [address] [place] [address] from Last 3 Months Care Teams Headwaiter/Headwaitress Relationship Specialty Start Date End Date Elsewhere, Pcp PCP - General 08/30/21
--- OUTSIDE RECORDS SUMMARY | 2023-09-02 06:19 | XMS_ITS | Encounter Summary ---
Author Name Unknown Organization [facility] Address [address] [place] [address] Care Team Providers Care Crop Puller Name Role Phone Elsewhere, Pcp Primary Care Provider Unavailabl e Reason for Visit * Reason Onset Date Comments GI Chart Prep 08/11/2023 Encounter Details Date Type Department Care Team (Latest Contact Info) Description 08/11/2023 Clinical Communication Department of Gastroenterology in [address] [phone] Johny Leavitt R.N. GI Chart Prep Social History Tobacco Use Types Packs/Day Years [...] often do you attend chur ch or shinto services? Never 07/14/2022 Do you belong to any clubs o r organizations such as uatsdin groups, unions, fraternal or athletic groups, or [...] medical care, and heating? Somewhat hard 07/14/2022 [facility] of Occupat ional Health - Occupational Stress [...] place to sleep or slept in a usp (including now)? No 07/14/2022 Nutrition Answer Date [...] PM CDT documented as of this encounter Miscellaneous Notes * Telephone Encounter - Johny Leavitt R.N. - 08/11/2023 11:03 AM CDT [facility] Efficient Patient Prep (FRANCISCO J) This document serves to better assist the provider in prepping for the upcoming gastroenterology & hepatology consult appointment. Has the patient been seen by a G.I. Department/provider within the last 5 years? No Where were they seen? NA Where is this information found? NA Do we have release of records on file if needed? No MICKIE sent if needed: Yes Is this a second opinion? No If yes, scheduling has been contacted to ensure establishing with MD. (Yes) Is this a transfer of care? No EGD & Colonoscopy completed at OSH from other notes in the chart but no access to those records. MICKIE sent via portal. documented in this encounter Plan of Treatment Not on file documented as of this encounter Visit Diagnoses Not on filedocumented in this encounter Care Teams Crop Puller Relationship Specialty Start Date End Date Elsewhere, Pcp PCP - General 08/30/21 documented as of this encounter
--- OUTSIDE RECORDS SUMMARY | 2023-09-02 06:20 | XMS_ITS | Encounter Summary ---
Author Name Unknown Organization [facility] Address [address] [place] [address] Care Team Providers Care Chief Airport Guide Name Role Phone Elsewhere, Pcp Primary Care Provider Unavailabl e Encounter Details Date Type Department Care Team (Late st Contact Info) Description 06/08/2023 [facility] [address] [place] [address] Shalonda Barrett M.D. [address] [place] [phone] Abdominal Pain (Primary Dx) Social History Tobacco Use Types Packs/Day Years [...] often do you attend chur ch or catholic services? Never 07/14/2022 Do you belong to any clubs o r organizations such as holiness groups, unions, fraternal or athletic groups, or [...] care, and heating? Somewhat hard 07/14/2022 [facility] of Occupat ional Health [...] PM CDT documented as of this encounter Plan of Treatment Not on file documented as of this encounter Visit Diagnoses Diagnosis Abdominal Pain- Primary documented in this encounter Care Teams Chief Airport Guide Relationship Specialty Start Date End Date Elsewhere, Pcp PCP - General 08/30/21 documented as of this encounter
--- OUTSIDE RECORDS SUMMARY | 2023-09-02 06:20 | XMS_ITS | Clinical Summary ---
Author Name Unknown Organization [facility] Address [place], [place] [address] Care Team Providers Care Worm Grower Name Role Phone Tyson [place] Primary Care Provider Unavail able Allergies No known active allergies Medications Medication Sig Dispensed Refills Start Date End Date Status ondansetron (ZOFRAN) 4 mg tabletIndications:Rebeca lonephritis Take 2 Tablets (8 mg) by mouth every 8 hours if needed for Nausea/Vomiting. 10 Tablet 12/25/2021 Active omeprazole (PRILOSEC) 40 mg Delayed-Release capsule Take 40 mg by mouth. 06/07/2022 Active rizatriptan (MAXALT) 10 mg tablet [...] site 01/05/2010 12/29/2010 WARTS, HAND 07/03/2003 12/29/2010 Immunizations Name Administration Dates Next Due DTaP [...] Relation Name Comments Bipolar disorder Brother 1 Henderson Thyroid Disease Brother 1 Eran Good Health Brother 2 Desai Good Health [...] disease Relation Name Status Comments Brother 1 Henderson Alive Brother 2 Desai Alive Father Maternal [...] Comments Blood Pressure 118/72 06/30/2022 2:37 PM MEDICAL INVESTIGATOR Pulse 83 06/30/2022 2:37 PM MEDICAL INVESTIGATOR Temperature 36.9 ??C (98.4 ??F) 12/25/2021 4:00 PM CD T Respiratory Rate 16 12/25/2021 4:00 PM CDT Oxygen Saturation 98% 12/25/2021 4:00 PM CDT Inhaled Oxygen Concentration - - Weight 52.2 kg (115 lb) 06/30/2022 2:37 PM MEDICAL INVESTIGATOR Height 162.6 cm (5' 4) 12/25/2021 4:00 PM CDT Body Mass Index 19.74 12/25/2021 4:00 PM CDT Plan of Treatment Health Maintenance Due Date Last Done Comments HIV for age 15-65 08/23/2015 Hepatitis C screening for ag e 18-79 2018 BMI (ht and wt on same day) for age 18+ 02/21/2020 02/20/2019, 01/31/2019 Depression screening for age 12+ 02/21/2020 02/20/2019 Tetanus booster 12/25/2022 12/25/2012 COVID-19 vaccine series (2022- season) 2023 Influenza for age 9-49 01/08/2024 , 03/15/2002 Pap test for age 21-65 03/24/2026 03/24/2023 Pneumococcal series for age 6-64 Aged Out 11/22/2001, 2000, 2000 No longer eligible based on patient's age to complete this topic Tdap Completed 12/25/2012 HPV series for age 9-26 Completed 02/21/20 19, 12/25/2012 Procedures Procedure Name Priority Date/Time Associated Diagnosis Comments TANDEM MILL OPERATOR THIN PREP PAP SCREEN IMAGED Routine 03/24/2023 12:00 PM MEDICAL INVESTIGATOR from Last 3 Months or Most Recently Relevant to Health Maintenance Results * TANDEM MILL OPERATOR THIN PREP PAP SCREEN IMAGED (03/24/2023 12:00 PM MEDICAL INVESTIGATOR) Case Report Gynecologic Cytology Report ? Case: [id number] ? Authorizing Provider: ??Harmony Colon ?Collected: ? 03/24/2023 1200 ? MD Lennie ? Ordering Location: ? [facility] ?Received: ?03/28/2023 1655 ? First Screen: ?Nino Dimas ? Specimen: ?TANDEM MILL OPERATOR ThinPrep Vial Screening, Cervical ? 04/07/2023 1:26 PM MEDICAL INVESTIGATOR [employer] LABORATORY-C ENTRAL LABORATORY INTERPRETATION/ RESULT NEGATIVE FOR INTRAEPITHELIAL LESION OR MALIGNANCY (NIL) (none) 04/07/2023 1:26 PM MEDICAL INVESTIGATOR [facility] LABORATORY-C ENTRAL LABORATORY IMEN ADEQUACY Satisfactory for evaluation Endocervical component present 04/07/2023 1:26 PM MEDICAL INVESTIGATOR [facility] HPV REQUEST HPV not requested 2022 1:26 PM MEDICAL INVESTIGATOR [facility] Date of LMP 03/05/2023 04/07/2023 1:26 PM MEDICAL INVESTIGATOR [facility] Abnormal Pap or [place] Bx in last 5 years No 04/07/2023 1:26 PM MEDICAL INVESTIGATOR [facility] Menstrual Status Irregular Periods 04/07/2023 1:26 PM MEDICAL INVESTIGATOR [facility] ENTRAL LABORATORY [place] Bx Done Today No 04/07/2023 1:26 PM MEDICAL INVESTIGATOR [facility] LABORATORY Additional Information 04/07/2023 1:26 PM MEDICAL INVESTIGATOR [facility] ENTR[facility] LABORATORY Comment: Interpreted at [facility] - [address] [place] [id number] Automated Review Successful 04/07/2023 1:26 PM MEDICAL INVESTIGATOR [facility] Comment:Specimen processed s uccessfully by automated occupational therapy technician device, ThinPrep Imaging System, [employer] Note The pap test is a screening technique, not a diagnostic procedure. It is used primarily to screen for squamous cancers and precursor lesions. Published studies have shown that it is subject to both false negative and false positive results. The pap test should not be used as the sole means to diagnose or exclude pre-malignant and malignant lesions. 04/07/2023 1:26 PM MEDICAL INVESTIGATOR [facility] Other (Cervical) 03/24/2023 12:00 PM MEDICAL INVESTIGATOR 03/28/2023 4:55 PM MEDICAL INVESTIGATOR Harmony Colon MD PATHOLOGY/ CYTOLOGY [facility] [address] [place] [address], from Last 3 Months or Most Recently Relevant to Health Maintenance Care Teams Worm Grower Relationship Specialty Start Date End Date Sourav Mehta PCP - General 02/02/20
--- OUTSIDE RECORDS SUMMARY | 2023-09-02 06:20 | XMS_ITS | Encounter Summary ---
Author Name Unknown Organization [facility] Address [address] [place] [address] Care Team Providers Care Tin Whiz Machine Operator Name Role Phone Elsewhere, Pcp Primary Care Provider Unavailabl e Reason for Referral * Outpatient (Routine) - Closed Specialty Diagnoses / Procedures Referred By Contact Referred To Contact Gastroenterology and Hepatology Diagnoses Pain Abdominal NOS Shalonda Barrett M.D. [address] [place] [phone] [facility] Region Referral ID Status Reason Start Date Expiration Date Visits Re quested Visits Authorized [id number] Closed 06/15/2023 12/14/2024 1 1 UNT RECEIVABLE ASSOCIATE Encounter Details Date Type Department Care Team (Late st Contact Info) Description 06/15/2023 [facility] [address] [place] [address] Shalonda Barrett M.D. [address] [place] [phone] Pain Abdominal NOS (Primary Dx) Social History Tobacco Use Types [...] often do you attend chur ch or jainism services? Never 07/14/2022 Do you belong to any clubs o r organizations such as sabianism groups, unions, fraternal or athletic groups, or [...] care, and heating? Somewhat hard 07/14/2022 [facility] [place] of Occupat ional Health - Occupational Stress [...] as of this encounter Plan of Treatment Scheduled Referrals Name Type Priority Associated Diagnoses Order Schedule Gastroenterology & Hepatology Referral Outpatient Referral Routine Pain Abdominal NOS Expected: 06/15/2023 (Approximate), Expires: 09/12/2024 documented as of this encounter Visit Diagnoses Diagnosis Pain Abdominal NOS- Primary documented in this encounter Care Teams Tin Whiz Machine Operator Relationship Specialty Start Date End Date Elsewhere, Pcp PCP - General 08/30/21 documented as of this encounter
--- OUTSIDE RECORDS SUMMARY | 2023-09-02 06:20 | XMS_ITS | Encounter Summary ---
Author Name Unknown Organization [facility] Address [address] [place] [address] Care Team Providers Care Greens Tier Name Role Phone Elsewhere, Pcp Primary Care Provider Unavailabl e Reason for Visit * Reason Comments Vomiting Pt presents to the E D with vomiting. Pt is 9 weeks . Encounter Details Date Type Department Care Team (Late st Contact Info) Description 08/02/2023 10:50 AM CDT - 08/02/2023 12:55 PM CDT Emergency [facility] [address] [place] [phone] Oswaldo Hernandez M.D. [address] [place] [phone] Nausea And Vomiting (Primary Dx); Dehydration; Migraine Unspecified Not Intractable Without Status Migrainosus Discharge Disposition: Home or Self Care Social [...] any clubs o r organizations such as taoism groups, unions, fraternal or athletic groups, or [...] medical care, and heating? Somewhat hard 07/14/2022 [facility] of Occupat ional Health - [...] place to sleep or slept in a custodial (including now)? No 07/14/2022 Nutrition Answer Date [...] Sign Reading Time Taken Comments Blood Pressure 107/63 08/02/2023 12:45 PM CDT Pulse 79 08/02/2023 12:45 PM CDT Temperature 37.1 ??C (98.8 ??F) 08/02/2023 10:56 AM C DT Respiratory Rate 18 08/02/2023 10:56 AM CDT Oxygen Saturation 100% 08/02/2023 12:45 PM CDT Inhaled Oxygen Concentration - - Weight 49.4 kg (109 lb) 08/02/2023 10:57 AM CDT Height - - Body Mass Index 18.71 04/18/2023 5:49 PM ULTRASOUND SPEC documented in this encounter Discharge Instructions * Attachments The following attachments cannot be sent through Care Everywhere. * Migraine Headache Neni-dz-Gqlr (Andorran) * Dehydration Adult Dmpu-ly-Emms (Andorran) documented in this encounter Medications at Time of Discharge Medication Sig Dispensed Refills Start Date End Date ferrous sulfate (IRON ORAL) Take by mouth. ondansetron ODT (ZOFRAN-ODT) 4 mg disintegrating tablet DISSOLVE ONE TABLET BY MOUTH EVERY 8 HOURS NEEDED FOR NAUSEA AND VOMITING 07/27/2023 pantoprazole (PROTONIX) 20 mg EC tablet Take 20 mg by mouth every morning before breakfast. hehokdg-Yi-staz-FA (VINATE ONE) 60 mg iron-1 mg per tablet Take 1 tablet by mouth daily. rizatriptan (MAXALT) 10 mg tablet Take 10 mg by mouth every 2 (two) hours as needed. 06/30/2022 rizatriptan SLAT BASKET MAKER MACHINE (MAXALT-SLAT BASKET MAKER MACHINE) 10 mg disintegrating tablet TAKE 1 TABLET BY MOUTH AT ONSET OF HEADACHE , MAY REPEAT AFTER 2 HOURS MAX2/DAY 08/26/2022 SUMAtriptan (IMITREX) 50 mg tablet TAKE ONE TABLET BY MOUTH ONCE DAILY AT ONSET OF HEADACHE, MAY REPEAT WITH 1 TABLET AFTER 2 HOURS NEEDED -MAX OF 4 TABLETS PER 24 HOURS 08/02/2023 documented as of this encounter ED Notes * Oswaldo Hernandez M.D. - 08/02/2023 10:56 AM CDT SUBJECTIVE CHIEF COMPLAINT/REASON FOR VISIT Vomiting (Pt presents to the ED with vomiting. Pt is 9 weeks .) HISTORY OF PRESENT ILLNESS 22-year-old female presents to the emergency department for evaluation of ongoing vomiting and headache. Patient states she has a history of migraine headaches, is currently 9 weeks . She states yesterday evening she developed her typical migraine, taking all her medications that she typically would without success. Overnight, she developed vomiting, multiple times, and continues to feel nauseous with ongoing head discomfort. She states that she contacted her primary care team, who advised her to come to the emergency department as she has exhausted all her outpatient migraine medications. Upon arrival, patient was ill in appearance, complains of ongoing nausea and headache, headache behind left eye, constant, stabbing, with accompanying photophobia. Evaluation History provided by: Patient REVIEW OF SYSTEMS Constitutional: Negative for chills and fever. HENT: Negative for congestion, rhinorrhea and sore throat. Respiratory: Negative for cough, chest tightness and shortness of breath. Cardiovascular: Negative for chest pain and palpitations. Gastrointestinal: Positive for nausea and vomiting. Negative for abdominal pain and diarrhea. Genitourinary: Negative. Musculoskeletal: Negative. Skin: Negative for rash and wound. Neurological: Positive for light-headedness. Psychiatric/Behavioral: Negative for confusion. OBJECTIVE Initial Vitals Temperature 08/02/23 1056 37.1 ??C Pulse Rate 08/02/23 1100 80 Heart Rate -- Resp Rate 08/02/23 1056 18 Blood Pressure 08/02/23 1100 123/77 SpO2 08/02/23 1100 100 % Pain Score 08/02/23 1057 7 PHYSICAL EXAMINATION Constitutional: Nursing note and vitals reviewed. She is cooperative. Non-toxic appearance. She does not have a sickly appearance. She does not appear ill. She appears distressed. HENT: Head: Normocephalic and atraumatic. Nose: Nose normal. Mouth/Throat: Mucous membranes are dry. Eyes: EOM are normal. Pupils are equal, round, and reactive to light. Neck: Neck supple. Cardiovascular: Normal rate and regular rhythm. Pulmonary/Chest: Effort normal and breath sounds normal. Abdominal: Soft. Normal appearance and bowel sounds are normal. There is no abdominal tenderness. Musculoskeletal: Cervical back: Neck supple. Neurological: Alert. GCS eye subscore is 4. GCS verbal subscore is 5. GCS motor subscore is 6. Skin: Skin is warm, dry and intact. No rash noted. Psychiatric: She has a normal mood and affect. ASSESSMENT/PLAN Assessment and Plan Impression: Migraine headache, nausea and vomiting, dehydration Plan: 22-year-old female, who reports being in her 1st trimester with FHT noted on exam by nursing staff of 140-150, presents to the emergency department for evaluation of left retro-orbital headache as well as severe nausea and vomiting. Here in the emergency department, nausea was resolved with Zofran and patient tolerated p.o. trial, with significant improvement in headache with Tylenol 1000 mg p.o. x1 administration. After 2 L of fluid, patient states she feels better it was stable to go home, with no red flag signs of intracranial pathology noted on history or physical examination. Patient be discharged with no additional changes in medication, encouraged to push p.o. fluids,and follow up with primary care as previously scheduled. Return to the emergency department with any questions or concerns she feels warrant emergency evaluation/consideration in the interim. All thepatient's current questions were answered her satisfaction prior to leaving the ER. DIFFERENTIAL DIAGNOSES Differential diagnosis includes but isn't limited to migraine headache, tension headache, headache secondary to dehydration, nausea and vomiting of , metabolic derangement, gastroenteritis. ED Course as of 08/02/23 1247 Tue Aug 02, 2023 1154 CBC shows no leukocytosis or anemia. Basic metabolic profile shows no metabolic abnormalities of significance. Patient states nausea resolve, ice chips trial ongoing. Headache improving to 5/10 severity. 1234 Patient tolerating p.o., states she feels significantly better. IV fluid, 2nd L, infusing 1238 Pt states headache has resolved.;l Final Diagnoses: as of 08/02/23 1247 Nausea And Vomiting Dehydration Migraine Unspecified Not Intractable Without Status Migrainosus Oswaldo Hernandez M.D. 08/02/23 1247 documented in this encounter Plan of Treatment Not on file documented as of this encounter Procedures Procedure Name Priority Date/Time Associated Diagnosis Comments CBC WITH DIFFERENTIAL, B STAT 08/02/2023 11:02 AM CDT BASIC METABOLIC PANEL, S/P STAT 08/02/2023 11:02 AM CDT documented in this encounter Results * (ABNORMAL) Basic Metabolic Panel (08/02/2023 11:02 [...] CDT Oswaldo Hernandez M.D. LAB BLOOD ADD-ON [facility] [address] [place] [address], [facility] NPRG [facility] [address] [place] [address] * (ABNORMAL) CBC with Differential, Blood (08/02/2023 [...] CDT Oswaldo Hernandez M.D. LAB BLOOD ADD-ON [facility] [address] [place] [address], [place] [facility]G [facility] [address] [place] [address] documented in this encounter Visit Diagnoses Diagnosis Nausea And Vomiting- Primary Dehydration Migraine Unspecified Not Intractable Without Status Migrainosus documented in this encounter Administered Medications Inactive Administered Medications - up to 3 most recent administrations Medication Order MAR Action Action Date Dose Rate Site acetaminophen tablet 1,000 mg (TYLENOL) 1,000 mg, oral, Once, On Tue08/02/23 at 1057, For 1 dose Given 08/02/2023 11:40 AM CDT 1,000 mg NaCl 0.9 % bolus 1,000 mL 1,000 mL, intravenous, at 2,000 mL/hr, Administer over 30 Minutes, Once, On Tue08/02/23 at 1057, For 1 dose New Bag 08/02/2023 11:03 AM CDT 1,000 mL 2000 mL/hr NaCl 0.9 % bolus 1,000 mL 1,000 mL, intravenous, at 1,000 mL/hr, Administer over 1 Hours, Once, On Tue08/02/23 at 1138, For 1 dose New Bag 08/02/2023 11:46 AM CDT 1,000 mL 1000 mL/hr ondansetron (PF) injection 4 mg (ZOFRAN) 4 mg, intravenous, Once, On Tue08/02/23 at 1057, For 1 dose Given 08/02/2023 11:07 AM CDT 4 mg sodium chloride 0.9 % injection 10 mL 10 mL, intravenous, As needed, line care, Starting on Tue08/02/23 at 1055, Peripheral Intravenous Catheter and Rapid Infusion Catheter, prior to blood sampling, post blood transfusion or post blood sampling sodium chloride 0.9 % injection 3 mL 3 mL, intravenous, As needed, line care, Starting on Tue08/02/23 at 1055, Prior to and following infusion and between multiple consecutive infusions: sodium chloride 0.9 % injection sodium chloride 0.9 % injection 3 mL 3 mL, intravenous, Every 12 hours scheduled, First dose on Tue08/02/23 at 2100, Peripheral Intravenous Catheter and Rapid Infusion Catheter, when no infusion to maintain patency documented in this encounter Active and Recently Administered Medications Times are shown in CDT. Scheduled Medication Order 07/31/2023 08/01/2023 08/02/2023 acetaminophen tablet 1,000 mg (TYLENOL) (COMPLETED) 1,000 mg, oral, Once, On Tue08/02/23 at 1057, For 1 dose 1140 (Given - Provid er: Nestor Workman RKyle.) NaCl 0.9 % bolus 1,000 mL (COMPLETED) 1,000 mL, intravenous, at 2,000 mL/hr, Administer over 30 Minutes, Once, On Tue08/02/23 at 1057, For 1 dose 1103 (New Bag - Prov ider: Nestor Workman R.N.)1130 (Stopped - Provider: Nestor Workman R.N.) NaCl 0.9 % bolus 1,000 mL (COMPLETED) 1,000 mL, intravenous, at 1,000 mL/hr, Administer over 1 Hours, Once, On e 08/02/23 at 1138, For 1 dose 1146 (New Bag - Prov ider: Nestor Workman R.N.)1246 (Stopped - Provider: Nena Portillo R.N.) ondansetron (PF) injection 4 mg (ZOFRAN) (COMPLETED) 4 mg, intravenous, Once, On Tue08/02/23 at 1057, For 1 dose 1107 (Given - Provid er: Nestor Workman R.N.) sodium chloride 0.9 % injection 3 mL 3 mL, intravenous, Every 12 hours scheduled, First dose on Tue08/02/23 at 2100, Peripheral Intravenous Catheter and Rapid Infusion Catheter, when no infusion to maintain patency PRN Medication Order 07/31/2023 08/01/2023 08/02/2023 sodium chloride 0.9 % injection 10 mL 10 mL, intravenous, As needed, line care, Starting on Tue08/02/23 at 1055, Peripheral Intravenous Catheter and Rapid Infusion Catheter, prior to blood sampling, post blood transfusion or post blood sampling sodium chloride 0.9 % injection 3 mL 3 mL, intravenous, As needed, line care, Starting on Tue08/02/23 at 1055, Prior to and following infusion and between multiple consecutive infusions: sodium chloride 0.9 % injection documented in this encounter Care Teams Greens Tier Relationship Specialty Start Date End Date Elsewhere, Pcp PCP - General 08/30/21 documented as of this encounter
== END 2023-09-01 10:32 | disposition home or self-care (01) ==
LOC: NFLDREF 09-02 06:17
PROVIDERS: PCP Family Medicine; Referring Provider Family Medicine; Visit Provider Family Medicine
DX: R79.89 Other specified abnormal findings of blood chemistry (principal); Z3A.13 13 weeks gestation of pregnancy
CPT/HCPCS: 84439; 84443; 84445; 84480; 86376; 86800

== ENCOUNTER 2023-09-20 09:17 | Outpatient (CLI) | payer MEDICAID, SELFPAY ==
--- OUTSIDE RECORDS SUMMARY | 2023-09-20 09:19 | XMS_ITS | Encounter Summary ---
Author Name Unknown Organization [facility] Address [address] [place] [address] Care Team Providers Care Cupola Liner Helper Name Role Phone Elsewhere, Pcp Primary Care Provider Unavailabl e Encounter Details Date Type Department Care Team (Latest Contact Info) Description 2023 10:40 AM CDT - 2023 11:59 PM CDT Hospital Encounter Department of Laboratory Medicine, Specialty Clinic, in [address] [phone] Anjali Guy, ARTURO, C.N.P., M.S.N. [address] [place] [phone] Pain Epigastric Discharge Disposition: Home or Self Care Social History Tobacco Use Types Packs/Day Years Used Date Smoking Tobacco: Never Passive Smoke Exposure: Never Smokeless Tobacco: Never Alcohol Use Standard Drinks/Week Comments No 0 (1 standard drink = 0.6 oz pur e alcohol) [facility] Utilities Answer Date Recorded In the past 12 months has e [employer], gas, oil, or water [employer] threatened to shut off services in your [...] How often do you attend chur or mormon services? Never 07/14/2022 Do you belong to any clubs o r organizations such as buddhism groups, unions, fraConferenceEdge or athletic groups, or school groups? No [...] medical care, and heating? Somewhat hard 07/14/2022 [facility] [place] of Occupat ional Health - Occupational Stress [...] your living situation today? I have a [facility] place to live 08/17/2023 Education Answer [...] mg by mouth every morning before breakfast. hvnafeu-Kk-aoyo-FA (VINATE ONE) 60 mg iron-1 mg per tablet Take 1 tablet by mouth daily. rizatriptan (MAXALT) 10 mg tablet Take 10 mg by mouth every 2 (two) hours as needed. 06/30/2022 rizatriptan FIELD HUMAN RESOURCES MANAGER (MAXALT-FIELD HUMAN RESOURCES MANAGER) 10 mg disintegrating tablet TAKE 1 TABLET [...] <50.0 (Normal) mcg/g 08/25/2023 5:37 PM CDT [facility] Stool (Stool) 2023 7:2 9 PM CDT 08/25/2023 11:19 AM CDT Amena Wren APRN.N.P., M.S. N. LAB BODY FLUIDS AND STOOLS ORDERABLES [facility] [address] [place] [address] [facility] [address] [place] [address] * T3 (Triiodothyronine), Total, Serum (2023 10:47 AM CDT) T3 (Triiodothyroni ne), Total, S 193 80 - 200 ng/dL 08/24/2023 3:21 PM CDT DT Blood 2023 10:4 7 AM CDT 08/24/2023 2:45 PM CDT Mariah Wren APRNNYanira., M.S. N. LAB BLOOD NON ADD-ON [facility] [address] [place] [address], [place] [facility] [address] [place] [address] * T4 (Thyroxine), Free, Serum (2023 10:47 AM CDT) T4 (Thyroxine), Free, S 1.4 0.9 - 1.7 ng/dL 2023 12:56 PM CDT MKTO Comment: Biotin has been identified by the cpr ambulance driver as a potential interfering substance. Higher concentrations of biotin may be found in multivitamins, hair/nail supplements, and workout supplements. If the result does not match clinical observations, repeat testing after patient refrains from the use of supplements for at least 12 hours. Blood 2023 10:4 7 AM CDT 2023 10:51 AM CDT Mariah Wren APRNNYanira., M.S. N. LAB BLOOD ADD-ON Performing Organization Address City/[facility]/ZIP Co de Phone Number [facility] [address] [place] [address], [place] MKTO [facility] [place] [address] [place] [address] * Magnesium (2023 10:47 AM CDT) Pathologist [facility] Magnesium, P 2.0 1.7 - 2.3 mg/dL 2023 11:12 AM CDT [facility] Blood (Blood, Venous) 2023 10:47 AM CDT 2023 10:51 AM CDT Mariah Wren APRNNYanira., M.S. N. LAB BLOOD ADD-ON [facility] [address] [place] [address], [place] [address] * (ABNORMAL) Thyroid Function [place] (2023 10:47 AM CDT) Pathologist [facility] TSH, Sensitive <0.03(L) 0.3 - 4.2 mIU/L 2023 12:26 PM CDT [facility] Blood (Blood, Venous) 2023 10:47 AM CDT 2023 10:51 AM CDT Mariah Wren APRNNYanira., M.S. N. LAB BLOOD ADD-ON [facility] [address] [place] [address], [address] [address] * CRP (C-Reactive Protein) (2023 10:47 AM CDT) Pathologist [facility] C-Reactive Protein (CRP), P <3.0 <5.0 mg/L 2023 11:12 AM CDT [facility] Blood (Blood, Venous) 2023 10:47 AM CDT 2023 10:51 AM CDT Anjali Guy APRN, C.N.P., M.S. N. LAB BLOOD ADD-ON [facility] [address] [place] [address], [facility] MKTO [facility] [place] [address] [place] [address] documented in this encounter Visit Diagnoses Diagnosis Pain Epigastric documented in this encounter Care Teams Cupola Liner Helper Relationship Specialty Start Date End Date Elsewhere, Pcp PCP - General 08/30/21 documented as of this encounter
--- OUTSIDE RECORDS SUMMARY | 2023-09-20 09:19 | XMS_ITS | Encounter Summary ---
Author Name Unknown Organization [facility] Address [address] [place] [address] Care Team Providers Care Manager Of Medical Name Role Phone Elsewhere, Pcp Primary Care Provider Unavailabl e Reason for Visit * Reason Onset Date Comments GI Chart Prep 08/11/2023 Encounter Details Date Type Department Care Team (Latest Contact Info) Description 08/11/2023 Clinical Communication Department of Gastroenterology in [address] [phone] Johny Leavitt R.N. GI Chart [...] often do you attend chur ch or nondenominational services? Never 07/14/2022 Do you belong to any clubs o r organizations such as mu-ism groups, unions, fraternal or athletic groups, or [...] medical care, and heating? Somewhat hard 07/14/2022 [facility] [place] of Occupat ional Health - Occupational Stress [...] place to sleep or slept in a assisted (including now)? No 07/14/2022 Nutrition Answer Date [...] on filedocumented in this encounter Care Teams Manager Of Medical Relationship Specialty Start Date End Date Elsewhere, Pcp PCP - General 08/30/21 documented as of this encounter
--- OUTSIDE RECORDS SUMMARY | 2023-09-20 09:19 | XMS_ITS | Referral Summary ---
Author Name Unknown Organization [facility] Address [address] [place] [address] Care Team Providers Care Type Bar And Segment Assembler Name Role Phone Elsewhere, Pcp Primary Care Provider Unavailabl e Source Comments Patient records contain information from all sites at [facility]. For routine questions regarding patient records, call [phone] during business hours, M-F 8:00 AM - 5:00 PM Central Time. Record requests for emergency care only can be directed to [phone] at any time.[facility] Encounters Date Type Department Care Team Description 2023 10:40 AM CDT - 2023 11:59 PM CDT Hospital Encounter Department of Laboratory Medicine, Specialty Clinic, in [place] [id number] Anjali Ferrari APRN, C.N.P., M.S.N. Pain Epigastric Discharge Disposition: Home or Self Care 2023 9:45 AM CDT Comprehensive Visit Department of Gastroenterology in [place] [phone] Anjali Ferrari APRN, C.N.P., M.S.N. Nausea (Primary Dx); Pain Epigastric Discharge Disposition: Home or Self Care 08/11/2023 Clinical Communication Department of Gastroenterology in [address] [phone] Johny Leavitt R.N. GI Chart Prep 08/02/2023 10:50 AM CDT - 08/02/2023 12:55 PM CDT Emergency [facility] [address] [place] [phone] Oswaldo Hernandez M.D. Nausea And Vomiting (Primary Dx); Dehydration; Migraine Unspecified Not Intractable Without Status Migrainosus Discharge Disposition: Home or Self Care from [...] daily. 30 capsule 11 07/14/2022 Active rizatriptan PERFECT BIND MACHINE OPERATOR (MAXALT-PERFECT BIND MACHINE OPERATOR) 10 mg disintegrating tablet TAKE 1 TABLET BY MOUTH AT ONSET OF HEADACHE , MAY REPEAT AFTER 2 HOURS MAX2/DAY 08/26/2022 Active pantoprazole (PROTONIX) 20 mg EC tablet Take 20 mg by mouth every morning before breakfast. Active cbqgdle-Ht-idqr-FA (VINATE ONE) 60 mg iron-1 mg per [...] drink = 0.6 oz pur e alcohol) [facility] Utilities Answer Date Recorded In the past 12 months has th e electric, gas, oil, or water company [...] often do you attend chur ch or gnosticist services? Never 07/14/2022 Do you belong to any clubs o r organizations such as orthodoxy groups, unions, fraternal or athletic groups, or [...] medical care, and heating? Somewhat hard 07/14/2022 [facility] [place] of Occupat ional Health - Occupational Stress [...] <50.0 (Normal) mcg/g 08/25/2023 5:37 PM CDT [facility] Stool (Stool) 2023 7:2 9 PM CDT 08/25/2023 11:19 AM CDT Anjali Guy APRN, C.N.P., M.S. N. LAB BODY FLUIDS AND STOOLS ORDERABLES [facility] [address] [place] [address] [facility] [address] [place] [address] * T4 (Thyroxine), Free, Serum (2023 10:47 AM CDT) T4 (Thyroxine), Free, S 1.4 0.9 - 1.7 ng/dL 2023 12:56 PM CDT MKTO Comment: Biotin has been identified by the coal grader as a potential interfering substance. Higher concentrations of biotin may be found in multivitamins, hair/nail supplements, and workout supplements. If the result does not match clinical observations, repeat testing after patient refrains from the use of supplements for at least 12 hours. Blood 2023 10:4 7 AM CDT 2023 10:51 AM CDT Anjali Guy APRN, C.N.P., M.S. N. LAB BLOOD ADD-ON [facility] [address] [place] [address], [facility] MKTO [facility] in [address] [address] * T3 (Triiodothyronine), Total, Serum (2023 10:47 AM CDT) T3 (Triiodothyroni ne), Total, S 193 80 - 200 ng/dL 08/24/2023 3:21 PM CDT DTL Blood 2023 10:4 7 AM CDT 08/24/2023 2:45 PM CDT Anjali Guy APRN, C.N.P., M.S. N. LAB BLOOD NON ADD-ON [facility] [address] [place] [address], [facility] [address] [place] [address] * (ABNORMAL) Thyroid Function [place] (2023 10:47 AM CDT) TSH, Sensitive <0.03(L) 0.3 - 4.2 mIU/L 2023 12:26 PM CDT MKTO Blood (Blood, Venous) 2023 10:47 AM CDT 2023 10:51 AM CDT Anjali Guy APRN, C.N.P., M.S. N. LAB BLOOD ADD-ON Performing Organization Address City/[facility]/ZIP Co de Phone Number [facility] [address] [place] [id number], [facility] MKTO [facility] [place] [address] [place] [id number] * CRP (C-Reactive Protein) (2023 10:47 AM CDT) C-Reactive Protein (CRP), P <3.0 <5.0 mg/L 2023 11:12 AM CDT MKTO Blood (Blood, Venous) 2023 10:47 AM CDT 2023 10:51 AM CDT Anjali Guy APRN, C.N.P., M.S. N. LAB BLOOD ADD-ON [facility] [address] [place] [address], [address] [address] * Magnesium (2023 10:47 AM CDT) [facility] Magnesium, P 2.0 1.7 - 2.3 mg/dL 2023 11:12 AM CDT [facility] Blood (Blood, Venous) 2023 10:47 AM CDT 2023 10:51 AM CDT Mariah Wren APRNNYanira., M.S. N. LAB BLOOD ADD-ON [facility] [address] [place] [address], [place] [address] * (ABNORMAL) CBC with Differential, Blood (08/02/2023 11:02 AM CDT) [facility] Hemoglobin 12.8 11.6 - 15.0 g/dL 08/02/2023 [...] CDT Oswaldo Hernandez M.D. LAB BLOOD ADD-ON [facility] [place] [facility] [address] [place] [address], [facility] NPRG [facility] [address] [place] [address] * (ABNORMAL) Basic Metabolic Panel (08/02/2023 11:02 [...] CDT Oswaldo Hernandez M.D. LAB BLOOD ADD-ON [facility] [address] [place] [address], [place] NPRG [facility] [address] [place] [address] from Last 3 Months Care Teams Type Bar And Segment Assembler Relationship Specialty Start Date End Date Elsewhere, Pcp PCP - General 08/30/21
--- OUTSIDE RECORDS SUMMARY | 2023-09-20 09:19 | XMS_ITS | Encounter Summary ---
Author Name Unknown Organization [facility] Address [address] [place] [address] Care Team Providers Care Telecom Specialist Name Role Phone Elsewhere, Pcp Primary Care Provider Unavailabl e Reason for Visit * Reason Comments Vomiting Pt presents to the E D with vomiting. Pt is 9 weeks . Encounter Details Date Type Department Care Team (Late st Contact Info) Description 08/02/2023 10:50 AM CDT - 08/02/2023 12:55 PM CDT Emergency [facility] [address] [place] [phone] Oswaldo Hernandez M.D. [address] [place] [phone] Nausea And Vomiting (Primary Dx); Dehydration; Migraine [...] often do you attend chur ch or mandaeism services? Never 07/14/2022 Do you belong to any clubs o r organizations such as restorationist groups, unions, fraternal or athletic groups, or [...] medical care, and heating? Somewhat hard 07/14/2022 [facility] of Occupat ional Health - Occupational Stress [...] Body Mass Index 18.71 04/18/2023 5:49 PM [facility] MEDICAL [facility]ISTANT[facility] PHLEBOTOMISTS documented in this encounter Discharge Instructions * Attachments The following attachments cannot be sent through Care Everywhere. * Migraine Headache Ucyz-oi-Tgto (Nepalese) * Dehydration Adult Ymgr-ma-Oqxj (Nepalese) documented in this encounter Medications at Time of Discharge Medication Sig Dispensed Refills Start Date End Date ferrous sulfate (IRON ORAL) Take by mouth. ondansetron ODT (ZOFRAN-ODT) 4 mg disintegrating tablet DISSOLVE ONE TABLET BY MOUTH EVERY 8 HOURS NEEDED FOR NAUSEA AND VOMITING 07/27/2023 pantoprazole (PROTONIX) 20 mg EC tablet Take 20 mg by mouth every morning before breakfast. goohuan-On-pmzg-FA (VINATE ONE) 60 mg iron-1 mg per tablet Take 1 tablet by mouth daily. rizatriptan (MAXALT) 10 mg tablet Take 10 mg by mouth every 2 (two) hours as needed. 06/30/2022 rizatriptan CROP SPECIALIST (MAXALT-CROP SPECIALIST) 10 mg disintegrating tablet TAKE 1 [...] CDT Oswaldo Hernandez M.D. LAB BLOOD ADD-ON [facility] [address] [place] [address], [facility] NPRG [facility] [address] [place] [address] * (ABNORMAL) CBC with Differential, Blood (08/02/2023 [...] CDT Oswaldo Hernandez M.D. LAB BLOOD ADD-ON [facility] [address] [place] [address], [place] NPRG [facility] [address] [place] [address] documented in this encounter Visit Diagnoses Diagnosis [...] Nestor Workman R.N.)1246 (Stopped - Provider: Nena Portilol R.N.) ondansetron (PF) injection 4 mg (ZOFRAN) [...] injection documented in this encounter Care Teams Telecom Specialist Relationship Specialty Start Date End Date Elsewhere, Pcp PCP - General 08/30/21 documented as of this encounter
--- OUTSIDE RECORDS SUMMARY | 2023-09-20 09:19 | XMS_ITS | Encounter Summary ---
Author Name Unknown Organization [facility] Address [address] [place] [address] Care Team Providers Care Reimbursement Counselor Name Role Phone Elsewhere, Pcp Primary Care Provider Unavailabl e Encounter Details Date Type Department Care Team (Late st Contact Info) Description 06/08/2023 [facility] [address] [place] [address] Shalonda Barrett M.D. [address] [place] [phone] Abdominal Pain (Primary Dx) Social History Tobacco [...] often do you attend chur ch or restorationism services? Never 07/14/2022 Do you belong to [...] medical care, and heating? Somewhat hard 07/14/2022 [facility] Occupat ional Health - Occupational [...] Primary documented in this encounter Care Teams Reimbursement Counselor Relationship Specialty Start Date End Date Elsewhere, Pcp PCP - General 08/30/21 documented as of this encounter
--- OUTSIDE RECORDS SUMMARY | 2023-09-20 09:19 | XMS_ITS ---
Author Name Unknown Organization [facility] Address [address] [place] [address] Care Team Providers Care Weighmaster Name Role Phone Unavailable Unavailable Unavailable Surgery Details Not on file Complications Check Surgery Details section. Procedure Estimated Blood Loss Check Surgery Details section. Procedure Findings Check Surgery Details section. Procedure Specimens Taken Check Surgery Details section.
--- OUTSIDE RECORDS SUMMARY | 2023-09-20 09:19 | XMS_ITS | Clinical Summary ---
Author Name Unknown Organization [facility] Address [address] [place] [address] Care Team Providers Care Carrot Harvester Name Role Phone Elsewhere, Pcp Primary Care Provider Unavailabl e Source Comments Patient records contain information from all sites at [facility]. For routine questions regarding patient records, call [phone] during business hours, M-F 8:00 AM - 5:00 PM Central Time. Record requests for emergency care only can be directed to [phone] at any time.[facility] Allergies Active Allergy Reactions Criticality Noted [...] daily. 30 capsule 11 07/14/2022 Active rizatriptan SHELLFISH WEIGHER (MAXALT-SHELLFISH WEIGHER) 10 mg disintegrating tablet TAKE 1 TABLET BY MOUTH AT ONSET OF HEADACHE , MAY REPEAT AFTER 2 HOURS MAX2/DAY 08/26/2022 Active pantoprazole (PROTONIX) 20 mg EC tablet Take 20 mg by mouth every morning before breakfast. Active hsguxcr-Mq-vrgz-FA (VINATE ONE) 60 mg iron-1 mg per [...] Department of Laboratory Medicine, Specialty Clinic, in [address] [phone] Anjali Ferrari, ARTURO, C.N.P., M.S.N. Pain Epigastric Discharge Disposition: Home or Self Care 2023 9:45 AM CDT Comprehensive Visit Department of Gastroenterology in [address] [phone] Anjali Ferrari, ARTURO, C.N.P., M.S.N. Nausea (Primary Dx); Pain Epigastric Discharge Disposition: Home or Self Care 08/11/2023 Clinical Communication Department of Gastroenterology in [address] [phone] Johny Leavitt R.N. GI Chart Prep 08/02/2023 10:50 AM CDT - 08/02/2023 12:55 PM CDT Emergency [facility] [address] [place] [phone] Oswaldo Hernandez M.D. Nausea And Vomiting [...] drink = 0.6 oz pur e alcohol) [facility] Utilities Answer Date Recorded In the past [...] often do you attend chur ch or hinduism services? Never 07/14/2022 Do you belong to any clubs o r organizations such as orthodox groups, unions, fraternal or athletic groups, or [...] medical care, and heating? Somewhat hard 07/14/2022 [facility] of Occupat ional Health - Occupational Stress [...] 2000 Hepatitis C Screening 2000 COVID-19 Vaccine (2022- season) 2023 Influenza Vaccine (#1) 2023 02/19/2019, [...] (Normal) mcg/g 08/25/2023 5:37 PM CDT [facility] Stool (Stool) 2023 7:2 9 PM CDT 08/25/2023 11:19 AM CDT Anjali Guy APRN, C.N.P., M.S. N. LAB BODY FLUIDS AND STOOLS ORDERABLES [facility] [address] [place] [address] [facility] [address] [place] [address] * T4 (Thyroxine), Free, Serum (2023 10:47 AM CDT) T4 (Thyroxine), Free, S 1.4 0.9 - 1.7 ng/dL 2023 12:56 PM CDT [facility] Comment: Biotin has been identified by the tip stitcher as a potential interfering substance. Higher concentrations of biotin may be found in multivitamins, hair/nail supplements, and workout supplements. If the result does not match clinical observations, repeat testing after patient refrains from the use of supplements for at least 12 hours. Blood 2023 10:4 7 AM CDT 2023 10:51 AM CDT Anjali Guy APRN, C.N.P., M.S. N. LAB BLOOD ADD-ON [facility] [address] [place] [address], [facility] [place] [address] [place] [address] * T3 (Triiodothyronine), Total, Serum (2023 10:47 AM CDT) T3 (Triiodothyroni ne), Total, S 193 80 - 200 ng/dL 08/24/2023 3:21 PM CDT [facility] Blood 2023 10:4 7 AM CDT 08/24/2023 2:45 PM CDT Anjali Guy APRN, C.N.P., M.S. N. LAB BLOOD NON ADD-ON Performing Organization Address City/[facility]/ZIP Co de Phone Number [facility] [address] [place] [address], [facility] [address] [place] [address] * (ABNORMAL) Thyroid Function [place] (2023 10:47 AM CDT) TSH, Sensitive <0.03(L) 0.3 - 4.2 mIU/L 2023 12:26 PM CDT [facility] Blood (Blood, Venous) 2023 10:47 AM CDT 2023 10:51 AM CDT Anjali Guy APRN, C.N.P., M.S. N. LAB BLOOD ADD-ON [facility] [address] [place] [address], [address] [address] * CRP (C-Reactive Protein) (2023 10:47 AM CDT) C-Reactive Protein (CRP), P <3.0 <5.0 mg/L 2023 11:12 AM CDT [facility] Blood (Blood, Venous) 2023 10:47 AM CDT 2023 10:51 AM CDT Anjali Guy APRN, C.N.P., M.S. N. LAB BLOOD ADD-ON Performing Organization Address City/[facility]/ZIP Co de Phone Number [facility] [address] [place] [address], [address] [address] * Magnesium (2023 10:47 AM CDT) [facility] Magnesium, P 2.0 1.7 - 2.3 mg/dL 2023 11:12 AM CDT [facility] Blood (Blood, Venous) 2023 10:47 AM CDT 2023 10:51 AM CDT Anjali Guy APRN, C.N.P., M.S. N. LAB BLOOD ADD-ON [facility] [address] [place] [address], [address] [address] * (ABNORMAL) CBC with Differential, Blood (08/02/2023 [...] CDT Oswaldo Hernandez M.D. LAB BLOOD ADD-ON [facility] [address] [place] [address], [facility] NPRG [facility] [address] [place] [address] * (ABNORMAL) Basic Metabolic Panel (08/02/2023 11:02 [...] CDT Oswaldo Hernandez M.D. LAB BLOOD ADD-ON [facility] [address] [place] [address], [place] NPR[facility] [address] [place] [address] from Last 3 Months Care Teams Carrot Harvester Relationship Specialty Start Date End Date Elsewhere, Pcp PCP - General 08/30/21
--- OUTSIDE RECORDS SUMMARY | 2023-09-20 09:19 | XMS_ITS | Encounter Summary ---
Author Name Unknown Organization [facility] Address [address] [place] [address] Care Team Providers Care Textile Designs Sales Representative Name Role Phone Elsewhere, Pcp Primary Care Provider Unavailabl e Reason for Referral * Outpatient (Routine) - Authorized Specialty Diagnoses / Procedures Referred By Contact Referred To Contact Gastroenterology and Hepatology Anjali Guy APRN, C.N.P., M.S.N. [address] [place] [phone] [facility] Referral ID Status Reason Start Date Expiration Date V isits Requested Visits Authorized [id number] Authorized 2023 02/20/2025 1 1 Reason for Visit * Reason Comments Abdominal Pain Consult * Outpatient (Routine) - Closed Specialty Diagnoses / Procedures Referred By Contact Referred To Contact Gastroenterology and Hepatology Diagnoses Pain Abdominal NOS Shalonda Barrett M.D. [address] [place] [phone] [facility] Referral ID Status Reason Start Date Expiration Date Visits Re quested Visits Authorized [id number] Closed 06/15/2023 12/14/2024 1 1 Encounter Details Date Type Department Care Team (Latest Contact Info) Description 2023 9:45 AM CDT Comprehensive Visit Department of Gastroenterology in [address] [phone] Anjali Guy APRN, C.N.P., M.S.N. [address] [place] [phone] Nausea (Primary Dx); Pain Epigastric Discharge Disposition: Home or Self Care Social History Tobacco Use Types Packs/Day Years Used Date Smoking Tobacco: Never Passive Smoke Exposure: Never Smokeless Tobacco: Never Alcohol Use Standard Drinks/Week Comments No 0 (1 standard drink = 0.6 oz pur e alcohol) [facility] Utilities Answer Date Recorded In the [...] often do you attend chur ch or roman catholic services? Never 07/14/2022 Do you belong to any clubs o r organizations such as advent groups, unions, fraternal or athletic groups, or [...] medical care, and heating? Somewhat hard 07/14/2022 [facility] of Occupat ional Health - Occupational [...] send out lab that we send to [facility]. Please freeze this sample after collection and bring back to a [place] lab within 2-3 days. PLEASE NOTE: The order for the stool sample will 30 days after you brain picker the stool kit. Please ensure prompt return on samples. [facility] labs are closed on the weekends. Follow up with GI provider in 3 months, please call GI scheduling at [phone] two months prior to your recommended follow-up [...] over half of a total 43 minutes [id number]-ph-[id number] with the patient in counseling and discussion and/or coordination of care as described above. Anjali Guy APRN, C.N.P., M.S.N. Gastroenterology and Hepatology [facility] documented in this encounter Plan of Treatment [...] <50.0 (Normal) mcg/g 08/25/2023 5:37 PM CDT [facility] Stool (Stool) 2023 7:2 9 PM CDT 08/25/2023 11:19 AM CDT Anjali Guy APRN, C.N.P., M.S. N. LAB BODY FLUIDS AND STOOLS ORDERABLES [facility] [address] [place] [address] [facility] [address] [place] [address] * Magnesium (2023 10:47 AM CDT) Magnesium, P 2.0 1.7 - 2.3 mg/dL 2023 11:12 AM CDT [facility] Blood (Blood, Venous) 2023 10:47 AM CDT 2023 10:51 AM CDT Anjali Guy APRN, C.N.P., M.S. N. LAB BLOOD ADD-ON [facility] [address] [place] [address] * (ABNORMAL) Thyroid Function [place] (2023 10:47 AM CDT) TSH, Sensitive <0.03(L) 0.3 - 4.2 mIU/L 2023 12:26 PM CDT [facility] Blood (Blood, Venous) 2023 10:47 AM CDT 2023 10:51 AM CDT Anjali Guy APRN, C.N.P., M.S. N. LAB BLOOD ADD-ON Performing Organization Address City/[facility]/ZIP Co de Phone Number [facility] [address] [place] [address], [place] [address] * CRP (C-Reactive Protein) (2023 10:47 AM CDT) C-Reactive Protein (CRP), P <3.0 <5.0 mg/L 2023 11:12 AM CDT [facility] Blood (Blood, Venous) 2023 10:47 AM CDT 2023 10:51 AM CDT Anjali Guy APRN, C.N.P., M.S. N. LAB BLOOD ADD-ON [facility] [address] [place] [address], [place] [address], [facility] [place] [address] [place] [address] documented in this encounter Visit Diagnoses Diagnosis Nausea- Primary Pain Epigastric documented in this encounter Care Teams Textile Designs Sales Representative Relationship Specialty Start Date End Date Elsewhere, Pcp PCP - General 08/30/21 documented as of this encounter
--- OUTSIDE RECORDS SUMMARY | 2023-09-20 09:19 | XMS_ITS | Encounter Summary ---
Author Name Unknown Organization [facility] Address [address] [place] [address] Care Team Providers Care Delivery And Mail Sorter Name Role Phone Elsewhere, Pcp Primary Care Provider Unavailabl e Reason for Referral * Outpatient (Routine) - Closed Specialty Diagnoses / Procedures Referred By Contact Referred To Contact Gastroenterology and Hepatology Diagnoses Pain Abdominal NOS Shalonda Barrett M.D. [address] [place] [phone] [facility] Region Referral ID Status Reason Start Date Expiration Date Visits Re quested Visits Authorized [id number] Closed 06/15/2023 12/14/2024 1 1 ALL STRIPPER Encounter Details Date Type Department Care Team (Late st Contact Info) Description 06/15/2023 [facility] [address] [place] [address] Shalonda Barrett M.D. [address] [place] [phone] Pain Abdominal NOS (Primary Dx) Social History [...] often do you attend chur ch or voodoo services? Never 07/14/2022 Do you belong to any clubs o r organizations such as congregation groups, unions, fraternal or athletic groups, or [...] medical care, and heating? Somewhat hard 07/14/2022 [facility] of Occupat ional Health - Occupational Stress [...] place to sleep or slept in a senior living (including now)? No 07/14/2022 Nutrition Answer Date [...] Primary documented in this encounter Care Teams Delivery And Mail Sorter Relationship Specialty Start Date End Date Elsewhere, Pcp PCP - General 08/30/21 documented as of this encounter
--- OUTSIDE RECORDS SUMMARY | 2023-09-20 09:20 | XMS_ITS | Clinical Summary ---
Author Name Unknown Organization [facility] Address [place], [place] [address] Care Team Providers Care Steam Distribution Supervisor Name Role Phone Tyson Jaylonbanks Primary Care Provider Unavail able Allergies No [...] Relation Name Comments Bipolar disorder Brother 1 Eran Thyroid Disease Brother 1 [place] Good Health Brother 2 Desai Good Health [...] disease Relation Name Status Comments Brother 1 Eran Alive Brother 2 Desai Alive Father Maternal [...] Comments Blood Pressure 118/72 06/30/2022 2:37 PM COAGULATING BATH MIXER Pulse 83 06/30/2022 2:37 PM COAGULATING BATH MIXER Temperature 36.9 ??C (98.4 ??F) 12/25/2021 4:00 PM CD T Respiratory Rate 16 12/25/2021 4:00 PM CDT Oxygen Saturation 98% 12/25/2021 4:00 PM CDT Inhaled Oxygen Concentration - - Weight 52.2 kg (115 lb) 06/30/2022 2:37 PM COAGULATING BATH MIXER Height 162.6 cm (5' 4) 12/25/2021 4:00 [...] Procedure Name Priority Date/Time Associated Diagnosis Comments ELECTRICAL CONTRACTOR THIN PREP PAP SCREEN IMAGED Routine 03/24/2023 12:00 PM COAGULATING BATH MIXER from Last 3 Months or Most Recently Relevant to Health Maintenance Results * ELECTRICAL CONTRACTOR THIN PREP PAP SCREEN IMAGED (03/24/2023 12:00 PM COAGULATING BATH MIXER) Case Report Gynecologic Cytology Report ? Case: [id number] ? Authorizing Provider: ??Harmony Colon ?Collected: ? 03/24/2023 1200 ? MD Lennie ? Ordering Location: ? [facility] ?Received: ?03/28/2023 1655 ? First Screen: ?Nino Dimas ? Specimen: ?ELECTRICAL CONTRACTOR ThinPrep Vial Screening, Cervical ? 04/07/2023 1:26 PM COAGULATING BATH MIXER [facility] INTERPRETATION/ RESULT NEGATIVE FOR INTRAEPITHELIAL LESION OR MALIGNANCY (NIL) (none) 04/07/2023 1:26 PM COAGULATING BATH MIXER [facility] IMEN ADEQUACY Satisfactory for evaluation Endocervical component present 04/07/2023 1:26 PM COAGULATING BATH MIXER [facility] HPV REQUEST HPV not requested 2022 1:26 PM COAGULATING BATH MIXER [facility] Date of LMP 03/05/2023 04/07/2023 1:26 PM COAGULATING BATH MIXER [facility] Abnormal Pap or [place] Bx in last 5 years No 04/07/2023 1:26 PM COAGULATING BATH MIXER [facility] Menstrual Status Irregular Periods 04/07/2023 1:26 PM COAGULATING BATH MIXER [facility] Photo [facility] ENTRAL LABORATORY [place] Bx Done Today No 04/07/2023 1:26 PM COAGULATING BATH MIXER [facility] Photo [employer] ENTROH LABORATORY Additional Information 04/07/2023 1:26 PM COAGULATING BATH MIXER [facility] Photo [employer] [facility] ENTRAL LABORATORY Comment: Interpreted at [facility] - [address] [place] [id number] Automated Review Successful 04/07/2023 1:26 PM COAGULATING BATH MIXER [facility] Photo [employer] [facility] ENTROH LABORATORY Comment:Specimen processed s uccessfully by automated motor teacher device, ThinPrep Imaging System, [employer] Note The pap test is a screening technique, not a diagnostic procedure. It is used primarily to screen for squamous cancers and precursor lesions. Published studies have shown that it is subject to both false negative and false positive results. The pap test should not be used as the sole means to diagnose or exclude pre-malignant and malignant lesions. 04/07/2023 1:26 PM COAGULATING BATH MIXER [facility] Photo [employer] [facility] Other (Cervical) 03/24/2023 12:00 PM COAGULATING BATH MIXER 03/28/2023 4:55 PM COAGULATING BATH MIXER Harmony Colon MD PATHOLOGY/ CYTOLOGY [facility] Photo [employer] [facility] [address] [place] [address], from Last 3 Months or Most Recently Relevant to Health Maintenance Care Teams Steam Distribution Supervisor Relationship Specialty Start Date End Date Sourav Mehta PCP - General 02/02/20
== END 2023-09-20 09:18 | disposition home or self-care (01) ==
LOC: NFLDREF 09:17
PROVIDERS: PCP Family Medicine; Visit Provider Obstetrics & Gynecology
DX: R53.83 Other fatigue (principal)
CPT/HCPCS: 82306

== ENCOUNTER 2023-10-07 10:06 | Emergency (ER) | payer MEDICAID, SELFPAY ==
[2023-10-07 10:28] VITALS: BP 118/77; PULSE 107; RESP 18; TEMP 37.1; O2SAT 95; BMI 20.1
--- OUTSIDE RECORDS SUMMARY | 2023-10-07 11:18 | XMS_ITS | Clinical Summary ---
Author Organization [facility] Address [address] [place] [address] Care Team Providers Care Faculty Research Physician Name Role Phone Elsewhere, Pcp Primary Care Provider Unavailabl e Source Comments Patient records contain information from all sites at [facility]. For routine questions regarding patient records, call [phone] during business hours, M-F 8:00 AM - 5:00 PM Central Time. Record requests for emergency care only can be directed to [phone] at any time.[facility] Allergies Active Allergy Reactions Criticality Noted [...] daily. 30 capsule 11 07/14/2022 Active rizatriptan GRAVITY PROSPECTING OPERATOR (MAXALT-GRAVITY PROSPECTING OPERATOR) 10 mg disintegrating tablet TAKE 1 TABLET BY MOUTH AT ONSET OF HEADACHE , MAY REPEAT AFTER 2 HOURS MAX2/DAY 08/26/2022 Active pantoprazole (PROTONIX) 20 mg EC tablet Take 20 mg by mouth every morning before breakfast. Active fwtfqon-Ro-pidm-FA (VINATE ONE) 60 mg iron-1 mg per [...] Department of Laboratory Medicine, Specialty Clinic, in [address] [phone] Anjali Ferrari, ARTURO, C.N.P., M.S.N. Pain Epigastric Discharge Disposition: Home or Self Care 2023 9:45 AM CDT Comprehensive Visit Department of Gastroenterology in [address] [phone] Anjali Ferrari, ARTURO, C.N.P., M.S.N. Nausea (Primary Dx); Pain Epigastric Discharge Disposition: Home or Self Care 08/11/2023 Clinical Communication Department of Gastroenterology in [address] [phone] Johny Leavitt R.N. GI Chart Prep 08/02/2023 10:50 AM CDT - 08/02/2023 12:55 PM CDT Emergency [facility] [address] [place] [phone] Oswaldo Hernandez M.D. Nausea And Vomiting [...] drink = 0.6 oz pur e alcohol) [facility] Utilities Answer Date Recorded In the [...] medical care, and heating? Somewhat hard 07/14/2022 [facility] [place] of Occupat ional Health - Occupational Stress [...] <50.0 (Normal) mcg/g 08/25/2023 5:37 PM CDT [facility] Stool (Stool) 2023 7:2 9 PM CDT 08/25/2023 11:19 AM CDT Amena Wren APRN.N.P., M.S. N. LAB BODY FLUIDS AND STOOLS ORDERABLES Performing Organization Address City/State/[facility] Co de Phone Number [facility] [address] [place] [address] [facility] [address] [place] [address] * T4 (Thyroxine), Free, Serum (2023 10:47 AM CDT) T4 (Thyroxine), Free, S 1.4 0.9 - 1.7 ng/dL 2023 12:56 PM CDT MKTO Comment: Biotin has been identified by the starch crab as a potential interfering substance. Higher concentrations of biotin may be found in multivitamins, hair/nail supplements, and workout supplements. If the result does not match clinical observations, repeat testing after patient refrains from the use of supplements for at least 12 hours. Blood 2023 10:4 7 AM CDT 2023 10:51 AM CDT Anjali Guy APRN, C.N.P., M.S. N. LAB BLOOD ADD-ON [facility] [address] [place] [address], [facility] in [place] [address] [place] [address] * T3 (Triiodothyronine), Total, Serum (2023 10:47 AM CDT) T3 (Triiodothyroni ne), Total, S 193 80 - 200 ng/dL 08/24/2023 3:21 PM CDT [facility] Blood 2023 10:4 7 AM CDT 08/24/2023 2:45 PM CDT Anjali Guy APRN, C.N.P., M.S. N. LAB BLOOD NON ADD-ON Performing Organization Address City/[facility]/ZIP Co de Phone Number [facility] [address] [place] [address], [facility] [address] [place] [address] * (ABNORMAL) Thyroid Function [place] (2023 10:47 AM CDT) TSH, Sensitive <0.03(L) 0.3 - 4.2 mIU/L 2023 12:26 PM CDT [facility] Blood (Blood, Venous) 2023 10:47 AM CDT 2023 10:51 AM CDT Anjali Guy APRN, C.N.P., M.S. N. LAB BLOOD ADD-ON [facility] [address] [place] [address], [address] [address] * CRP (C-Reactive Protein) (2023 10:47 AM CDT) Pathologist [facility] C-Reactive Protein (CRP), P <3.0 <5.0 mg/L 2023 11:12 AM CDT MKTO Blood (Blood, Venous) 2023 10:47 AM CDT 2023 10:51 AM CDT Anjali Guy APRN, C.N.P., M.S. N. LAB BLOOD ADD-ON [facility] [address] [place] [address], [address] [address] * Magnesium (2023 10:47 AM CDT) [facility] Magnesium, P 2.0 1.7 - 2.3 mg/dL 2023 11:12 AM CDT MKTO Blood (Blood, Venous) 2023 10:47 AM CDT 2023 10:51 AM CDT Anjali Guy APRN, C.N.P., M.S. N. LAB BLOOD ADD-ON [facility] [address] [place] [address], [address] [address] * (ABNORMAL) CBC with Differential, Blood (08/02/2023 [...] CDT Oswaldo Hernandez M.D. LAB BLOOD ADD-ON [facility] [address] [place] [address], [facility] NPRG [facility] [address] [place] [address] * (ABNORMAL) Basic Metabolic Panel (08/02/2023 11:02 [...] CDT Oswaldo Hernandez M.D. LAB BLOOD ADD-ON [facility] [address] [place] [address], [place] NPRG [facility] [address] [place] [address] from Last 3 Months Care Teams Faculty Research Physician Relationship Specialty Start Date End Date Elsewhere, Pcp PCP - General 08/30/21
--- OUTSIDE RECORDS SUMMARY | 2023-10-07 11:18 | XMS_ITS ---
Author Organization [facility] Address [address] [place] [address] Care Team Providers Care Cafeteria Helper Name Role Phone Unavailable Unavailable Unavailable Surgery Details Not on file Complications Check Surgery Details section. Procedure Estimated Blood Loss Check Surgery Details section. Procedure Findings Check Surgery Details section. Procedure Specimens Taken Check Surgery Details section.
--- OUTSIDE RECORDS SUMMARY | 2023-10-07 11:18 | XMS_ITS | Encounter Summary ---
Author Organization [facility] Address [address] [place] [address] Care Team Providers Care Seed District Sales Manager Name Role Phone Elsewhere, Pcp Primary Care Provider Unavailabl e Encounter Details Date Type Department Care Team (Latest Contact Info) Description 2023 10:40 AM CDT - 2023 11:59 PM CDT Hospital Encounter Department of Laboratory Medicine, Specialty Clinic, in [address] [phone] Anjali Guy, ARTURO, C.N.P., M.S.N. [address] [place] [phone] Pain Epigastric Discharge Disposition: Home or Self Care Social History Tobacco Use Types Packs/Day Years Used Date Smoking Tobacco: Never Passive Smoke Exposure: Never Smokeless Tobacco: Never Alcohol Use Standard Drinks/Week Comments No 0 (1 standard drink = 0.6 oz pur e alcohol) [facility] Utilities Answer Date Recorded In the past 12 months has [facility] [employer], gas, oil, or water [employer] threatened to shut off services in your [...] often do you attend chur ch or christian services? Never 07/14/2022 Do you belong to any clubs o r organizations such as hindu groups, unions, fraternal or athletic groups, or [...] medical care, and heating? Somewhat hard 07/14/2022 [facility] [place] of Occupat ional Health - Occupational Stress [...] your living situation today? I have a [facility] place to live 08/17/2023 Education Answer [...] mg by mouth every morning before breakfast. fpvbcaz-Ab-rser-FA (VINATE ONE) 60 mg iron-1 mg per tablet Take 1 tablet by mouth daily. rizatriptan (MAXALT) 10 mg tablet Take 10 mg by mouth every 2 (two) hours as needed. 06/30/2022 rizatriptan STUNT MAN (MAXALT-STUNT MAN) 10 mg disintegrating tablet TAKE 1 TABLET [...] <50.0 (Normal) mcg/g 08/25/2023 5:37 PM CDT [facility] Stool (Stool) 2023 7:2 9 PM CDT 08/25/2023 11:19 AM CDT Amena Wren APRN.N.P., M.S. N. LAB BODY FLUIDS AND STOOLS ORDERABLES [facility] [address] [place] [address] [facility] [address] [place] [address] * T3 (Triiodothyronine), Total, Serum (2023 10:47 AM CDT) T3 (Triiodothyroni ne), Total, S 193 80 - 200 ng/dL 08/24/2023 3:21 PM CDT DT Blood 2023 10:4 7 AM CDT 08/24/2023 2:45 PM CDT Anjali Guy APRN, C.N.P., M.S. N. LAB BLOOD NON ADD-ON [facility] [address] [place] [address], [facility] [address] [place] [address] * T4 (Thyroxine), Free, Serum (2023 10:47 AM CDT) T4 (Thyroxine), Free, S 1.4 0.9 - 1.7 ng/dL 2023 12:56 PM CDT MKTO Comment: Biotin has been identified by the organizational development consultant as a potential interfering substance. Higher concentrations of biotin may be found in multivitamins, hair/nail supplements, and workout supplements. If the result does not match clinical observations, repeat testing after patient refrains from the use of supplements for at least 12 hours. Blood 2023 10:4 7 AM CDT 2023 10:51 AM CDT Mariah Wren APRNNYanira., M.S. N. LAB BLOOD ADD-ON [facility] [address] [place] [address], [place] MKTO [facility] in [place] [address] [place] [address] * Magnesium (2023 10:47 AM CDT) Magnesium, P 2.0 1.7 - 2.3 mg/dL 2023 11:12 AM CDT [facility] Blood (Blood, Venous) 2023 10:47 AM CDT 2023 10:51 AM CDT Mariah Wren APRNNYanira., M.S. N. LAB BLOOD ADD-ON [facility] [address] [place] [address], [place] [address] * (ABNORMAL) Thyroid Function [place] (2023 10:47 AM CDT) Pathologist [facility] TSH, Sensitive <0.03(L) 0.3 - 4.2 mIU/L 2023 12:26 PM CDT [facility] Blood (Blood, Venous) 2023 10:47 AM CDT 2023 10:51 AM CDT Amena Wren APRN.NDedraP., M.S. N. LAB BLOOD ADD-ON Performing Organization Address City/[facility]/ZIP Co de Phone Number [facility] [address] [place] [address], [address] [address] * CRP (C-Reactive Protein) (2023 10:47 AM CDT) Pathologist [facility] C-Reactive Protein (CRP), P <3.0 <5.0 mg/L 2023 11:12 AM CDT [facility] Blood (Blood, Venous) 2023 10:47 AM CDT 2023 10:51 AM CDT Anjali Guy APRN, C.N.P., M.S. N. LAB BLOOD ADD-ON Performing Organization Address City/State/[facility] Co de Phone Number [facility] [place] [address], [facility] MKTO [facility] in [place] [address] [place] [address] documented in this encounter Visit Diagnoses Diagnosis Pain Epigastric documented in this encounter Care Teams Seed District Sales Manager Relationship Specialty Start Date End Date Elsewhere, Pcp PCP - General 08/30/21 documented as of this encounter
--- OUTSIDE RECORDS SUMMARY | 2023-10-07 11:18 | XMS_ITS | Referral Summary ---
Author Organization [facility] Address [address] [place] [address] Care Team Providers Care Class A Regional Drivers Name Role Phone Elsewhere, Pcp Primary Care Provider Unavailabl e Source Comments Patient records contain information from all sites at [facility]. For routine questions regarding patient records, call [phone] during business hours, M-F 8:00 AM - 5:00 PM Central Time. Record requests for emergency care only can be directed to [phone] at any time.[facility] Encounters Date Type Department Care Team Description 2023 10:40 AM CDT - 2023 11:59 PM CDT Hospital Encounter Department of Laboratory Medicine, Specialty Clinic, in [place] [phone] Anjali Ferrari APRN, C.N.P., M.S.N. Pain Epigastric Discharge Disposition: Home or Self Care 2023 9:45 AM CDT Comprehensive Visit Department of Gastroenterology in [place] [phone] Anjali Ferrari APRN, C.N.P., M.S.N. Nausea (Primary Dx); Pain Epigastric Discharge Disposition: Home or Self Care 08/11/2023 Clinical Communication Department of Gastroenterology in [address] [phone] Johny Leavitt R.N. GI Chart Prep 08/02/2023 10:50 AM CDT - 08/02/2023 12:55 PM CDT Emergency [facility] [address] [place] [address] Oswaldo Hernandez M.D. Nausea And [...] daily. 30 capsule 11 07/14/2022 Active rizatriptan DISCHARGE COORDINATOR (MAXALT-DISCHARGE COORDINATOR) 10 mg disintegrating tablet TAKE 1 TABLET BY MOUTH AT ONSET OF HEADACHE , MAY REPEAT AFTER 2 HOURS MAX2/DAY 08/26/2022 Active pantoprazole (PROTONIX) 20 mg EC tablet Take 20 mg by mouth every morning before breakfast. Active rpdxtpb-Sh-dwwg-FA (VINATE ONE) 60 mg iron-1 mg per [...] drink = 0.6 oz pur e alcohol) [facility] Utilities Answer Date Recorded In the [...] often do you attend chur ch or sabianism services? Never 07/14/2022 Do you belong to any clubs o r organizations such as nondenominational groups, unions, fraternal or athletic groups, or [...] and heating? Somewhat hard 07/14/2022 [facility] of Occupat ional Health - Occupational Stress [...] FLUIDS AND STOOLS ORDERABLES Performing Organization Address City/[facility]/ZIP Co de Phone Number [facility] [address] [place] [address] [facility] [address] [place] [address] * T4 (Thyroxine), Free, Serum (2023 10:47 AM CDT) T4 (Thyroxine), Free, S 1.4 0.9 - 1.7 ng/dL 2023 12:56 PM CDT MKTO Comment: Biotin has been identified by the track walker as a potential interfering substance. Higher concentrations of biotin may be found in multivitamins, hair/nail supplements, and workout supplements. If the result does not match clinical observations, repeat testing after patient refrains from the use of supplements for at least 12 hours. Blood 2023 10:4 7 AM CDT 2023 10:51 AM CDT Anjali Guy APRN, C.N.P., M.S. N. LAB BLOOD ADD-ON [facility] [address] [place] [address], [facility] in [address] [address] * T3 (Triiodothyronine), Total, Serum (2023 10:47 AM CDT) T3 (Triiodothyroni ne), Total, S 193 80 - 200 ng/dL 08/24/2023 3:21 PM CDT DTL Blood 2023 10:4 7 AM CDT 08/24/2023 2:45 PM CDT Anjali Guy APRN, C.N.P., M.S. N. LAB BLOOD NON ADD-ON [facility] [address] [place] [address], [facility] DTL [facility] [address] [place] [address] * (ABNORMAL) Thyroid Function [place] (2023 10:47 AM CDT) TSH, Sensitive <0.03(L) 0.3 - 4.2 mIU/L 2023 12:26 PM CDT [facility] Blood (Blood, Venous) 2023 10:47 AM CDT 2023 10:51 AM CDT Anjali Guy APRN, C.N.P., M.S. N. LAB BLOOD ADD-ON Performing Organization Address City/[facility]/ZIP Co de Phone Number [facility] [address] [place] [address], [facility] MKTO [facility] in [place] [address] [place] [address] * CRP (C-Reactive Protein) (2023 10:47 AM CDT) C-Reactive Protein (CRP), P <3.0 <5.0 mg/L 2023 11:12 AM CDT [facility] Blood (Blood, Venous) 2023 10:47 AM CDT 2023 10:51 AM CDT Anjali Guy APRN, C.N.P., M.S. N. LAB BLOOD ADD-ON [facility] [address] [place] [address] [place] [address] * Magnesium (2023 10:47 AM CDT) [facility] Magnesium, P 2.0 1.7 - 2.3 mg/dL 2023 11:12 AM CDT [facility] Blood (Blood, Venous) 2023 10:47 AM CDT 2023 10:51 AM CDT Amena Wren APRN.NYanira., M.S. N. LAB BLOOD ADD-ON [facility] [address] [place] [address] * (ABNORMAL) CBC with Differential, Blood (08/02/2023 11:02 AM CDT) [facility] Hemoglobin 12.8 11.6 - 15.0 g/dL 08/02/2023 [...] CDT Oswaldo Hernandez M.D. LAB BLOOD ADD-ON [facility] [address] [place] [address], [facility] NPRG [facility] [address] [place] [address] * (ABNORMAL) Basic Metabolic Panel (08/02/2023 11:02 [...] CDT Oswaldo Hernandez M.D. LAB BLOOD ADD-ON [facility] [address] [place] [address], [facility] NPRG [facility] [address] [place] [address] from Last 3 Months Care Teams Class A Regional Drivers Relationship Specialty Start Date End Date Elsewhere, Pcp PCP - General 08/30/21
--- OUTSIDE RECORDS SUMMARY | 2023-10-07 11:18 | XMS_ITS | Encounter Summary ---
Author Organization [facility] Address [address] [place] [address] Care Team Providers Care Stunner Animal Name Role Phone Elsewhere, Pcp Primary Care Provider Unavailabl e Reason for Visit * Reason Comments Vomiting Pt presents to the E D with vomiting. Pt is 9 weeks . Encounter Details Date Type Department Care Team (Late st Contact Info) Description 08/02/2023 10:50 AM CDT - 08/02/2023 12:55 PM CDT Emergency [facility] [address] [place] [phone] Oswaldo Hernandez M.D. [address] [place] [phone] Nausea And Vomiting (Primary Dx); Dehydration; Migraine [...] often do you attend chur ch or mormonism services? Never 07/14/2022 Do you belong to any clubs o r organizations such as mosque groups, unions, fraternal or athletic groups, or [...] Body Mass Index 18.71 04/18/2023 5:49 PM BUSINESS SUPPORT COORDINATOR documented in this encounter Discharge Instructions * Attachments The following attachments cannot be sent through Care Everywhere. * Migraine Headache [id number] (Tanzanian) * Dehydration Adult Hmlv-zo-Vpaz (Tanzanian) documented in this encounter Medications at Time of Discharge Medication Sig Dispensed Refills Start Date End Date ferrous sulfate (IRON ORAL) Take by mouth. ondansetron ODT (ZOFRAN-ODT) 4 mg disintegrating tablet DISSOLVE ONE TABLET BY MOUTH EVERY 8 HOURS NEEDED FOR NAUSEA AND VOMITING 07/27/2023 pantoprazole (PROTONIX) 20 mg EC tablet Take 20 mg by mouth every morning before breakfast. vgbsdtb-Ay-pezu-FA (VINATE ONE) 60 mg iron-1 mg per tablet Take 1 tablet by mouth daily. rizatriptan (MAXALT) 10 mg tablet Take 10 mg by mouth every 2 (two) hours as needed. 06/30/2022 rizatriptan AUDIO VISUAL TECHNICIAN (MAXALT-AUDIO VISUAL TECHNICIAN) 10 mg disintegrating tablet TAKE 1 TABLET [...] gastroenteritis. ED Course as of 08/02/23 1247 e Aug 02, 2023 1154 CBC shows no [...] CDT Oswaldo Hernandez M.D. LAB BLOOD ADD-ON [facility] [address] [place] [address], [facility] NPRG [facility] [address] [place] [address] * (ABNORMAL) CBC with Differential, Blood (08/02/2023 [...] CDT Oswaldo Hernandez M.D. LAB BLOOD ADD-ON [facility] [address] [place] [address], [facility] NPRG [facility] [address] [place] [address] documented in this encounter Visit Diagnoses Diagnosis [...] 1140 (Given - Provid er: Nestor Workman R.N.) NaCl 0.9 % bolus [...] On Tue08/02/23 at 1138, For 1 dose 1146 (New [...] injection documented in this encounter Care Teams Stunner Animal Relationship Specialty Start Date End Date Elsewhere, Pcp PCP - General 08/30/21 documented as of this encounter
--- OUTSIDE RECORDS SUMMARY | 2023-10-07 11:18 | XMS_ITS | Encounter Summary ---
Author Organization [facility] Address [address] [place] [address] Care Team Providers Care Gas Line Repairer Name Role Phone Elsewhere, Pcp Primary Care Provider Unavailabl e Reason for Visit * Reason Onset Date Comments GI Chart Prep 08/11/2023 Encounter Details Date Type Department Care Team (Latest Contact Info) Description 08/11/2023 Clinical Communication Department of Gastroenterology in [address] [place] [address] [phone] Johny Leavitt R.N. GI Chart [...] often do you attend chur ch or yazdanism services? Never 07/14/2022 Do you belong to any clubs o r organizations such as mormonism groups, unions, fraternal or athletic groups, or [...] medical care, and heating? Somewhat hard 07/14/2022 [facility] of Occupat ional Health - Occupational Stress [...] place to sleep or slept in a fdc (including now)? No 07/14/2022 Nutrition Answer Date [...] on filedocumented in this encounter Care Teams Gas Line Repairer Relationship Specialty Start Date End Date Elsewhere, Pcp PCP - General 08/30/21 documented as of this encounter
--- OUTSIDE RECORDS SUMMARY | 2023-10-07 11:18 | XMS_ITS | Encounter Summary ---
Author Organization [facility] Address [address] [place] [address] Care Team Providers Care Cafe Helper Name Role Phone Elsewhere, Pcp Primary Care Provider Unavailabl e Reason for Referral * Outpatient (Routine) - Authorized Specialty Diagnoses / Procedures Referred By Contact Referred To Contact Gastroenterology and Hepatology Anjali Guy APRN, C.NRamya, M.S.N. [address] [place] [phone] [facility] Referral ID Status Reason Start Date Expiration Date V isits Requested Visits Authorized [id number] Authorized 2023 02/20/2025 1 1 Reason for Visit * Reason Comments Abdominal Pain Consult * Outpatient (Routine) - Closed Specialty Diagnoses / Procedures Referred By Contact Referred To Contact Gastroenterology and Hepatology Diagnoses Pain Abdominal NOS Shalonda Barrett M.D. [address] [place] [phone] [facility] Referral ID Status Reason Start Date Expiration Date Visits Re quested Visits Authorized [id number] Closed 06/15/2023 12/14/2024 1 1 Encounter Details Date Type Department Care Team (Latest Contact Info) Description 2023 9:45 AM CDT Comprehensive Visit Department of Gastroenterology in [place], [place] [address] [place] [phone] Anjali Guy APRN, C.N.P., M.S.N. [address] [place] [phone] Nausea (Primary Dx); Pain Epigastric Discharge Disposition: Home or Self Care Social History Tobacco Use Types Packs/Day Years Used Date Smoking Tobacco: Never Passive Smoke Exposure: Never Smokeless Tobacco: Never Alcohol Use Standard Drinks/Week Comments No 0 (1 standard drink = 0.6 oz pur e alcohol) [facility] Utilities Answer Date Recorded In the past 12 months has e electric, gas, oil, or water [employer] threatened to shut off services in your [...] often do you attend chur ch or pentecostalism services? Never 07/14/2022 Do you belong to [...] and heating? Somewhat hard 07/14/2022 [facility] - Occupational Stress Questionnaire Answer Date [...] send out lab that we send to [place]. Please freeze this sample after collection and bring back to a [place] lab within 2-3 days. PLEASE NOTE: The order for the stool sample will 30 days after you supervisor mirror fabrication the stool kit. Please ensure prompt return on samples. [facility] labs are closed on the weekends. Follow up with GI provider in 3 months, please call GI scheduling at [phone] two months prior to your recommended follow-up [...] over half of a total 43 minutes [id number] with the patient in counseling and discussion and/or coordination of care as described above. Anjali Guy APRN, C.N.P., M.S.N. Gastroenterology and Hepatology [facility] documented in this encounter Plan of Treatment [...] <50.0 (Normal) mcg/g 08/25/2023 5:37 PM CDT [facility] Stool (Stool) 2023 7:2 9 PM CDT 08/25/2023 11:19 AM CDT Anjali Guy APRN, C.N.P., M.S. N. LAB BODY FLUIDS AND STOOLS ORDERABLES [facility] [address] [place] [address] [facility] [address] [place] [address] * Magnesium (2023 10:47 AM CDT) Magnesium, P 2.0 1.7 - 2.3 mg/dL 2023 11:12 AM CDT [facility] Blood (Blood, Venous) 2023 10:47 AM CDT 2023 10:51 AM CDT Anjali Guy APRN, C.N.P., M.S. N. LAB BLOOD ADD-ON [facility] [address] [place] [address], [place] [address] * (ABNORMAL) Thyroid Function [place] (2023 10:47 AM CDT) TSH, Sensitive <0.03(L) 0.3 - 4.2 mIU/L 2023 12:26 PM CDT [facility] Blood (Blood, Venous) 2023 10:47 AM CDT 2023 10:51 AM CDT Anjali Guy APRN, C.N.P., M.S. N. LAB BLOOD ADD-ON Performing Organization Address City/[facility]/ZIP Co de Phone Number [facility] [address] [place] [address], [place] [address] * CRP (C-Reactive Protein) (2023 10:47 AM CDT) C-Reactive Protein (CRP), P <3.0 <5.0 mg/L 2023 11:12 AM CDT [facility] Blood (Blood, Venous) 2023 10:47 AM CDT 2023 10:51 AM CDT Anjali Guy APRN, C.N.P., M.S. N. LAB BLOOD ADD-ON [facility] [address] [place] [id number], [facility] [place] [address] [place] [address] documented in this encounter Visit Diagnoses Diagnosis Nausea- Primary Pain Epigastric documented in this encounter Care Teams Cafe Helper Relationship Specialty Start Date End Date Elsewhere, Pcp PCP - General 08/30/21 documented as of this encounter
--- OUTSIDE RECORDS SUMMARY | 2023-10-07 11:19 | XMS_ITS | Clinical Summary ---
Author Organization [facility] Address [place], [place] [address] Care Team Providers Care Activities Volunteer Name Role Phone [place] Primary Care Provider Unavail able Allergies No [...] Brother 1 Eran Thyroid Disease Brother 1 [place] Good Health Brother 2 Desai Good Health [...] disease Relation Name Status Comments Brother 1 [place] Alive Brother 2 Desai Alive Father Maternal [...] Comments Blood Pressure 118/72 06/30/2022 2:37 PM NEONATAL INTENSIVE CARE NURSE Pulse 83 06/30/2022 2:37 PM NEONATAL INTENSIVE CARE NURSE Temperature 36.9 ??C (98.4 ??F) 12/25/2021 4:00 PM CD T Respiratory Rate 16 12/25/2021 4:00 PM CDT Oxygen Saturation 98% 12/25/2021 4:00 PM CDT Inhaled Oxygen Concentration - - Weight 52.2 kg (115 lb) 06/30/2022 2:37 PM NEONATAL INTENSIVE CARE NURSE Height 162.6 cm (5' 4) 12/25/2021 4:00 [...] Procedure Name Priority Date/Time Associated Diagnosis Comments ADDICTION PSYCHIATRIST THIN PREP PAP SCREEN IMAGED Routine 03/24/2023 12:00 PM NEONATAL INTENSIVE CARE NURSE from Last 3 Months or Most Recently Relevant to Health Maintenance Results * ADDICTION PSYCHIATRIST THIN PREP PAP SCREEN IMAGED (03/24/2023 12:00 PM NEONATAL INTENSIVE CARE NURSE) Case Report Gynecologic Cytology Report ? Case: [id number] ? Authorizing Provider: ??Harmony Colon ?Collected: ? 03/24/2023 1200 ? MD Lennie ? Ordering Location: ? [facility] ?Received: ?03/28/2023 1655 ? First Screen: ?Nino Dimas ? Specimen: ?ADDICTION PSYCHIATRIST ThinPrep Vial Screening, Cervical ? 04/07/2023 1:26 PM NEONATAL INTENSIVE CARE NURSE [facility] ENTRAL LABORATORY INTERPRETATION/ RESULT NEGATIVE FOR INTRAEPITHELIAL LESION OR MALIGNANCY (NIL) (none) 04/07/2023 1:26 PM NEONATAL INTENSIVE CARE NURSE [facility] ENTRAL LABORATORY IMEN ADEQUACY Satisfactory for evaluation Endocervical component present 04/07/2023 1:26 PM NEONATAL INTENSIVE CARE [facility] HPV REQUEST HPV not requested 2022 1:26 PM NEONATAL INTENSIVE CARE NURSE [facility] Date of LMP 03/05/2023 04/07/2023 1:26 PM NEONATAL INTENSIVE CARE NURSE [facility] ENTRAL LABORATORY Abnormal Pap or [place] Bx in last 5 years No 04/07/2023 1:26 PM NEONATAL INTENSIVE CARE NURSE [facility] ENTRAL LABORATORY Menstrual Status Irregular Periods 04/07/2023 1:26 PM NEONATAL INTENSIVE CARE NURSE [facility] [place] Bx Done Today No 04/07/2023 1:26 PM NEONATAL INTENSIVE CARE NURSE [facility] ENTRAL LABORATORY Additional Information 04/07/2023 1:26 PM NEONATAL INTENSIVE CARE NURSE [facility] ENTRAL LABORATORY Comment: Interpreted at [facility] - [address] [place] [id number] Automated Review Successful 04/07/2023 1:26 PM NEONATAL INTENSIVE CARE NURSE [facility] ENTRAL LABORATORY Comment:Specimen processed s uccessfully by automated engineering geologist device, ThinPrep Imaging System, [employer] [facility] Note The pap test is a screening technique, not a diagnostic procedure. It is used primarily to screen for squamous cancers and precursor lesions. Published studies have shown that it is subject to both false negative and false positive results. The pap test should not be used as the sole means to diagnose or exclude pre-malignant and malignant lesions. 04/07/2023 1:26 PM NEONATAL INTENSIVE CARE NURSE [facility] EN[facility]LA LAB[facility]ATORY Other (Cervical) 03/24/2023 12:00 PM NEONATAL INTENSIVE CARE NURSE 03/28/2023 4:55 PM NEONATAL INTENSIVE CARE NURSE Harmony Colon MD PATHOLOGY/ CYTOLOGY [facility] [address] [place] [address], from Last 3 Months or Most Recently Relevant to Health Maintenance Care Teams Activities Volunteer Relationship Specialty Start Date End Date Sourav Mehta PCP - General 02/02/20
[2023-10-07] MEDS: 0.9 % SODIUM CHLORIDE 1000 ml 1,000 ML IV (11:25)
--- NOTE | 2023-10-07 11:27 | ED.GENADULT ---
HPI - General Adult General Date Seen: 10/07/23 Chief complaint: Abdominal Pain Stated complaint: 18 weeks , back/abdominal pain Time Seen by Provider: 10/07/23 11:04 Source: patient, RN notes reviewed and old records reviewed Mode of arrival: ambulatory Limitations: no limitations History of Present Illness HPI narrative: Patient is a 23-year-old young woman who is G3, P1, status post 1 miscarriage. She is 18 weeks , here with some lower abdominal pain which started yesterday. Initially on the left side now across the lower abdomen. Pain now is also in her low back. She has not taken anything at home for pain. She has had some diarrhea, nonbloody. She denies nausea or vomiting, appetite has been normal and she has been eating and drinking without difficulty. She has not had fevers or urinary symptoms. No vaginal bleeding. Denies abdominal trauma. She had anemia with her 1st , no other complications. She miscarried at 5 weeks with her 2nd . She does have factor 5 Leiden but anticoagulation not recommended secondary to no history of thromboembolism previously. She also was diagnosed recently with a low TSH but free T4 and T3 were normal, endocrine recommended recheck of labs at 20 weeks but no treatment otherwise. She does not take any medications daily. Denies tobacco or alcohol use. Related Data Home Medications ?Medication ?Instructions ?Recorded ?Confirmed docosahexaenoic acid 200 mg mg PO 07/27/23 09/20/23 capsule ( DHA) Previous Rx's ?Medication ?Instructions ?Recorded ondansetron 4 mg disintegrating 4 mg PO Q8H PRN nausea and 08/23/23 tablet vomiting #30 tabs doxylamine succinate 25 mg tablet 50 mg (2 x 25 mg) PO QHS PRN sleep 09/20/23 #20 tabs sumatriptan succinate 50 mg tablet See Rx Instructions PO .COMPLEX #7 09/20/23 tabs Allergies Allergy/AdvReac Type Severity Reaction Status Date / Time No Known Allergies Allergy Unknown Unknown Verified 09/20/23 08:47 Review of Systems Status of ROS: Reports: 10 or more systems reviewed and unremarkable except as noted in History and below [facility] Medical History Abnormal thyroid blood test ?R79.89 - Other specified abnormal findings of blood chemistry (ICD-10) Medical marijuana use ?Z79.899 - Other extermination supervisor (current) drug therapy (ICD-10) GERD (gastroesophageal reflux disease) ?K21.9 - Gastro-esophageal reflux disease without esophagitis (ICD-10) Tension headache ?G44.209 - Tension-type headache, unspecified, not intractable (ICD-10) Migraine with aura ?G43.109 - Migraine with aura, not intractable, without status migrainosus (ICD-10) Factor V Leiden mutation ?D68.51 - Activated protein C resistance (ICD-10) Anemia affecting ?O99.019 - Anemia complicating , unspecified trimester (ICD-10) Surgical History Status post primary low transverse section (01/31/22) ?Z98.891 - History of uterine scar from previous surgery (ICD-10) History of esophagogastroduodenoscopy (EGD) ?Z98.890 - Other specified postprocedural states (ICD-10) Family History Maternal Grandmother Cancer Factor V Leiden Thyroid cancer Kidney disease Crohn's disease Mother Factor V Leiden Stroke, Onset Age: 37 Graves disease Romain's thyroiditis Brother Factor V Leiden Aunt Factor V Leiden Social History Narrative: Lives with significant other, Rohith. 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 1 daughter, 1 cat and 1 dog Does not exercise on regular basis Alcohol: No Nonsmoker Dietary restrictions: lactose intolerance Multiple body piercings and tattoos What is your current living situation?: I presently have a place to live In the past 12 months, utilities in danger of being shut off: no In past 12 months, lack of transportation kept you from medical appts, meetings, work, or getting things needed for daily living: no In the past 12 mos, have been you worried that your food would run out before you had money to buy more?: never true In the past 12 mos, the food you bought just didn't last and you didn't have money to buy more?: sometimes true Smoking Status: Never smoker Do you use any of these nicotine containing products: None How often do you have a drink containing alcohol: never How often do you have six or more drinks on one occasion: Never AUDIT-C Alcohol total score: 0 Non-prescribed substance use: denies use How often does anyone, including family, friends and others, physically hurt you: never How often does anyone, including family, friends and others, insult or talk down to you: never How often does anyone, including family, friends and others, threaten you with harm: never How often does anyone, including family, friends and others, scream or curse at you: never Little interest or pleasure in doing things: not at all Feeling down, depressed, or hopeless: not at all Exam Narrative: Exam Narrative: Vital signs as noted above. In general, an alert, well-appearing patient. Looks comfortable. Head: Normocephalic, atraumatic. Eyes: Pupils are equal reactive. Extraocular movements are full. Conjunctivae are normal. ENT: Mucous membranes are moist. Throat is normal. Neck: Supple without lymphadenopathy. Heart: Regular rate and rhythm. No murmur or rub. Lungs: Clear bilaterally. No increased work of breathing, crackles or wheezes. Abdomen: Early gravid, nontender to palpation without rebound guarding or rigidity. Extremities: Well perfused. No edema. No calf tenderness. Pulses intact. Neurologic: Patient is alert and oriented to person and place. Speech is fluent. Face is symmetric. Moves all extremities equally. Affect: Normal. Skin: Warm and dry. Well perfused. Const: Vital Signs, click to edit/add: Vital Signs - 24 hr 10/07/23 10:28 10/07/23 12:18 10/07/23 14:42 Temperature 98.8 F Pulse Rate [Pulse Oximeter] 107 H 76 83 Respiratory Rate 18 18 18 Blood Pressure [Ri ght Upper Arm] 118/77 103/70 109/65 Pulse Oximetry 95 100 98 Oxygen Delivery Me thod Room Air Room Air Room Air Documenting provider has reviewed patient's vital signs: yes Course Course ED Course: Records are reviewed, patient's abdominal exam is benign. Will check some labs, currently low suspicion of a surgical process such as appendicitis. Rule out UTI. 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 Do plan to consult with OB Gyne prior to discharge. Labs are reassuring, white blood cell count is 9.7, hemoglobin 12. No significant left shift. Electrolytes are normal, lactate 0.7, LFTs normal, lipase 42. UA is negative. I did check baby with ultrasound, heart tones are reassuring in the 130s, movement is seen. Case reviewed with Dr. Yifan Barajas, on-call for Ob Gyne. She did not have further recommendations. Will have patient follow-up as planned, use Tylenol if needed. For severe pain, bleeding, fevers, vomiting etcetera return any time. Call OB with further questions. Vital Signs Vital signs: Initial Vital Signs Temperature 98.8 F 10/07/23 10:28 Temperature Source Temporal Artery Scan 10/07/23 10:28 Pulse Rate 107 H 10/07/23 10:28 Respiratory Rate 18 10/07/23 10:28 Blood Pressure 118/77 10/07/23 10:28 Blood Pressure Mean 90 10/07/23 10:28 Pulse Oximetry 95 10/07/23 10:28 Oxygen Delivery Method Room Air 10/07/23 10:28 Vital Signs Temperature 98.8 F 10/07/23 10:28 Pulse Rate 107 H 10/07/23 10:28 Respiratory Rate 18 10/07/23 10:28 Blood Pressure 118/77 10/07/23 10:28 Pulse Oximetry 95 10/07/23 10:28 Oxygen Delivery Method Room Air 10/07/23 10:28 Temperature 98.8 F 10/07/23 10:28 Pulse Rate 83 10/07/23 14:42 Respiratory Rate 18 10/07/23 14:42 Blood Pressure 109/65 10/07/23 14:42 Pulse Oximetry 98 10/07/23 14:42 Oxygen Delivery Method Room Air 10/07/23 14:42 Medications Administered Medications: Discontinued Medications Generic Name Dose Route Start Last Admin Trade Name Freq PRN Reason Stop Dose Admin Sodium Chloride 1,000 mls @ 1,000 mls/hr 10/07/23 11:15 10/07/23 12:31 0.9 % Sodium Chloride 1000 Ml IV 10/07/23 12:14 Infused .Q1H MARCELINA Infusion Medical Decision Making Lab Data Labs: Lab Results 10/07/23 10/07/23 Range/Units 10:55 11:25 WBC 9.68 (4.50-11.00) K/uL RBC 4.00 (4.00-5.20) m/uL Hgb 12.0 (12.0-16.0) gm/dL Hct 36.4 (33.0-51.0) % MCV 91 (80-100) fL MCH 30 (26-34) pg MCHC 33 (32-36) gm/dL RDW Coeff of Neida 13.4 (11.5-15.5) % Plt Count 240 (140-440) K/uL Neut % (Auto) 76.5 H (42.0-72.0) % Lymph % (Auto) 18.0 L (20-44) % [place] % (Auto) 4.9 (0.0-11.0) % Eos % (Auto) 0.4 (0.0-7.0) % Baso % (Auto) 0.1 (0.0-3.0) % Neut # (Auto) 7.40 H (1.7-7.0) K/uL Lymph # (Auto) 1.70 (0.90-2.90) K/uL [place] # (Auto) 0.50 (0.00-0.90) K/UL Eos # (Auto) 0.04 (0.00-0.50) K/uL Baso # (Auto) 0.01 (0.00-0.30) K/uL Abs Immat Gran (auto) 0.01 (0.00-0.30) K/uL Imm/Tot Granulo (auto) 0.1 % Sodium 136 (135-149) mmol/L Potassium 4.1 (3.6-5.1) mmol/L Chloride 109 (96-114) mmol/L Carbon Dioxide 21 (20-32) mmol/L Anion Gap 6 L (7-15) mEq/L BUN 6 (5-24) mg/dL Creatinine 0.4 L (0.5-1.5) mg/dL Estimated Creat Clear 180.13 Estimated GFR 143 ml/min Glucose 78 (60-115) mg/dL Lactate 0.7 (0.5-1.9) mmol/L Calcium 9.1 (8.4-10.6) mg/dL Total Bilirubin 0.6 (0.1-1.5) mg/dL Direct Bilirubin 0.3 (0.0-0.5) mg/dL AST 22 (12-35) U/L ALT 12 (4-35) U/L Alkaline Phosphatase 67 (40-150) U/L Total Protein 7.9 (6.0-8.3) g/dL Albumin 4.6 (3.3-5.0) g/dL Lipase 42 (23-300) U/L Urine Color Yellow (Yellow) Urine Appearance Clear (Clear) Urine pH 7.5 (5.0-8.5) Ur Specific [place] 1.020 (1.000-1.030) Urine Protein Negative (Negative) Urine Glucose (UA) Negative (Negative) Urine Ketones Negative (Negative) Urine Blood Trace-intact A (Negative) Urine Nitrite Negative (Negative) Urine Bilirubin Negative (Negative) Urine Urobilinogen 0.2 (0.2-1.0) Ur Leukocyte Esterase Negative (Negative) Urine RBC 0-2 (0-2) Urine WBC 0-2 (0-5) Ur Squamous Epith Cells Moderate A (None-Few) Urine Bacteria Few A (None) Discharge Plan Discharge Clinical Impression: Abdominal pain during Patient Disposition: Home, Self-Care Condition: Stable Instructions: Abdominal Pain in (ED) Additional Instructions: All of your labs today are normal. Baby looks good. If you have more severe pain, new symptoms such as bleeding, vomiting, fever etcetera you should be seen again. Please call OB with any further questions. Follow-up as planned. You can use Tylenol if needed. Prescriptions: No Action sumatriptan succinate 50 mg tablet See Rx Instructions PO .COMPLEX Qty: 7 0RF Rx Instructions: take 1 tab at onset of headache; if no relief may repeat 1 tab after at least 2 hrs; max = 4 tabs/24 hr PO doxylamine succinate 25 mg tablet 50 mg PO QHS PRN (Reason: sleep) Qty: 20 0RF DHA 200 mg capsule PO ondansetron 4 mg tablet,disintegrating 4 mg PO Q8H PRN (Reason: nausea and vomiting) Qty: 30 0RF Follow Up/Referrals: Shalonda Barrett MD [Primary Care Provider] - Stand Alone Forms: [employer] Info Instructions
[2023-10-07 11:30] LABS: Lactate Sepsis w/Reflex* 0.7 mmol/L (0.5-1.9)
[2023-10-07 11:32] LABS: Basophils Absolute Auto 0.01 K/uL (0.00-0.30); Basophils Percent Auto 0.1 % (0.0-3.0); Eosinophils Absolute Auto 0.04 K/uL (0.00-0.50); Eosinophils Percent Auto 0.4 % (0.0-7.0); Hematocrit 36.4 % (33.0-51.0); Immature Granulocytes Abs Auto 0.01 K/uL (0.00-0.30); Immature Granulocytes Pct Auto 0.1 %; Mean Corpuscular HGB Conc 33 gm/dL (32-36); Mean Corpuscular Hemoglobin 30 pg (26-34); Mean Corpuscular Volume 91 fL (80-100); Monocytes Percent Auto 4.9 % (0.0-11.0); Neutrophils Percent Auto 76.5 % (42.0-72.0); Platelet Count* 240 K/uL (140-440); RDW Coefficient of Variation % 13.4 % (11.5-15.5); White Blood Count* 9.68 K/uL (4.50-11.00)
[2023-10-07 11:34] LABS: Slide Review Reflex No
[2023-10-07 11:34] LABS: Appearance Urine Clear (Clear); Bilirubin Urine Negative (Negative); Blood Urine Trace-intact (Negative); Color Urine Yellow (Yellow); Glucose Urine Negative (Negative); Ketones Urine Negative (Negative); Protein Urine Negative (Negative); pH Urine 7.5 (5.0-8.5)
[2023-10-07 11:35] LABS: Bacteria Urine Few; Leukocyte Esterase Urine Negative (Negative); Nitrite Urine Negative (Negative); RBC Urine 0-2 (0-2); Squamous Epithelial Cell Urine Moderate (None-Few); Urobilinogen Urine 0.2 (0.2-1.0); WBC Urine 0-2 (0-5)
[2023-10-07 11:46] LABS: Albumin* 4.6 g/dL (3.3-5.0)
[2023-10-07 11:48] LABS: Bilirubin Direct* 0.3 mg/dL (0.0-0.5); Bilirubin Total* 0.6 mg/dL (0.1-1.5)
[2023-10-07 11:49] LABS: Alanine Aminotransferase* 12 U/L (4-35); Alkaline Phosphatase* 67 U/L (40-150); Aspartate Amino Transferase* 22 U/L (12-35); Lipase* 42 U/L (23-300); Total Protein* 7.9 g/dL (6.0-8.3)
[2023-10-07 12:18] VITALS: BP 103/70; PULSE 76; RESP 18; O2SAT 100
[2023-10-07 12:51] LABS: Chloride* 109 mmol/L (96-114)
[2023-10-07 12:52] LABS: Potassium* 4.1 mmol/L (3.6-5.1); Sodium* 136 mmol/L (135-149)
[2023-10-07 12:54] LABS: Creatinine* 0.4 mg/dL (0.5-1.5); Estimated Glomerular Filt Rate 143 ml/min
[2023-10-07 12:55] LABS: Anion Gap 6 mEq/L (7-15); Blood Urea Nitrogen* 6 mg/dL (5-24); Calcium* 9.1 mg/dL (8.4-10.6); Carbon Dioxide* 21 mmol/L (20-32); Glucose* 78 mg/dL (60-115)
[2023-10-07 14:42] VITALS: BP 109/65; PULSE 83; RESP 18; O2SAT 98
== END 2023-10-07 14:44 | disposition home or self-care (01) ==
PROVIDERS: Emergency Provider Emergency Medicine; PCP Family Medicine
DX: R10.9 Unspecified abdominal pain (principal); Z3A.18 18 weeks gestation of pregnancy
CPT/HCPCS: 36415; 80048; 80076; 81001; 83605; 83690; 85025; 87086; 99283; 99284; J7030

== ENCOUNTER 2023-10-18 12:50 | Outpatient (CLI) | payer MEDICAID, SELFPAY ==
--- OUTSIDE RECORDS SUMMARY | 2023-10-18 12:52 | XMS_ITS ---
Author Organization [facility] Address [address] [place] [address] Care Team Providers Care Puncher Name Role Phone Unavailable Unavailable Unavailable Surgery Details Not on file Complications Check Surgery Details section. Procedure Estimated Blood Loss Check Surgery Details section. Procedure Findings Check Surgery Details section. Procedure Specimens Taken Check Surgery Details section.
--- OUTSIDE RECORDS SUMMARY | 2023-10-18 12:52 | XMS_ITS | Referral Summary ---
Author Organization [facility] Address [address] [place] [address] Care Team Providers Care Repeat Photocomposing Machine Operator Name Role Phone Elsewhere, Pcp Primary Care Provider Unavailabl e Source Comments Patient records contain information from all sites at [facility]. For routine questions regarding patient records, call [phone] during business hours, M-F 8:00 AM - 5:00 PM Central Time. Record requests for emergency care only can be directed to [phone] at any time.[facility] Encounters Date Type Department Care Team Description 2023 10:40 AM CDT - 2023 11:59 PM CDT Hospital Encounter Department of Laboratory Medicine, Specialty Clinic, in [place] [id number] Anjali Ferrari APRN, C.N.P., M.S.N. Pain Epigastric Discharge Disposition: Home or Self Care 2023 9:45 AM CDT Comprehensive Visit Department of Gastroenterology in [place] [phone] Anjali Ferrari APRN, C.N.P., M.S.N. Nausea (Primary Dx); Pain Epigastric Discharge Disposition: Home or Self Care 08/11/2023 Clinical Communication Department of Gastroenterology in [address] [phone] Johny Leavitt R.N. GI Chart Prep 08/02/2023 10:50 AM CDT - 08/02/2023 12:55 PM CDT Emergency [facility] [address] [place] [address] Oswaldo Hernandez M.D. Nausea And Vomiting [...] daily. 30 capsule 11 07/14/2022 Active rizatriptan HOT STICK WORKER (MAXALT-HOT STICK WORKER) 10 mg disintegrating tablet TAKE 1 TABLET BY MOUTH AT ONSET OF HEADACHE , MAY REPEAT AFTER 2 HOURS MAX2/DAY 08/26/2022 Active pantoprazole (PROTONIX) 20 mg EC tablet Take 20 mg by mouth every morning before breakfast. Active fwpwfyn-Hy-nxtt-FA (VINATE ONE) 60 mg iron-1 mg per [...] drink = 0.6 oz pur e alcohol) [facility] Utilities Answer Date Recorded In the [...] often do you attend chur ch or adventism services? Never 07/14/2022 Do you belong to any clubs o r organizations such as lutheran groups, unions, fraternal or athletic groups, or [...] medical care, and heating? Somewhat hard 07/14/2022 [facility] [place] of Occupat ional Health - Occupational Stress [...] <50.0 (Normal) mcg/g 08/25/2023 5:37 PM CDT [facility] Stool (Stool) 2023 7:2 9 PM CDT 08/25/2023 11:19 AM CDT Anjali Guy APRN, C.N.P., M.S. N. LAB BODY FLUIDS AND STOOLS ORDERABLES Performing Organization Address City/[facility]/ZIP Co de Phone Number [facility] [address] [place] [address] [facility] [address] [place] [address] * T4 (Thyroxine), Free, Serum (2023 10:47 AM CDT) T4 (Thyroxine), Free, S 1.4 0.9 - 1.7 ng/dL 2023 12:56 PM CDT MKTO Comment: Biotin has been identified by the dried fruit washer as a potential interfering substance. Higher concentrations of biotin may be found in multivitamins, hair/nail supplements, and workout supplements. If the result does not match clinical observations, repeat testing after patient refrains from the use of supplements for at least 12 hours. Blood 2023 10:4 7 AM CDT 2023 10:51 AM CDT Anjali Guy APRN, C.N.P., M.S. N. LAB BLOOD ADD-ON [facility] [address] [place] [address], [facility] [address] [address] * T3 (Triiodothyronine), Total, Serum (2023 10:47 AM CDT) T3 (Triiodothyroni ne), Total, S 193 80 - 200 ng/dL 08/24/2023 3:21 PM CDT DTL Blood 2023 10:4 7 AM CDT 08/24/2023 2:45 PM CDT Anjali Guy APRN, C.N.P., M.S. N. LAB BLOOD NON ADD-ON [facility] [address] [place] [address], [facility] DTL [facility] [address] [place] [address] * (ABNORMAL) Thyroid Function [place] (2023 10:47 AM CDT) TSH, Sensitive <0.03(L) 0.3 - 4.2 mIU/L 2023 12:26 PM CDT [facility] Blood (Blood, Venous) 2023 10:47 AM CDT 2023 10:51 AM CDT Anjali Guy APRN, C.N.P., M.S. N. LAB BLOOD ADD-ON Performing Organization Address City/[facility]/ZIP Co de Phone Number [facility] [address] [place] [address], [facility] MKTO [facility] [place] [address] [place] [address] * CRP (C-Reactive Protein) (2023 10:47 AM CDT) C-Reactive Protein (CRP), P <3.0 <5.0 mg/L 2023 11:12 AM CDT [facility] Blood (Blood, Venous) 2023 10:47 AM CDT 2023 10:51 AM CDT Anjali Guy APRN, C.N.P., M.S. N. LAB BLOOD ADD-ON [facility] [address] [place] [address] [place] [address] * Magnesium (2023 10:47 AM CDT) [facility] Magnesium, P 2.0 1.7 - 2.3 mg/dL 2023 11:12 AM CDT [facility] Blood (Blood, Venous) 2023 10:47 AM CDT 2023 10:51 AM CDT Amena Wren APRN.NYanira., M.S. N. LAB BLOOD ADD-ON [facility] [address] [place] [address] * (ABNORMAL) CBC with Differential, Blood (08/02/2023 11:02 AM CDT) [facility] Hemoglobin 12.8 11.6 - 15.0 g/dL 08/02/2023 [...] CDT Oswaldo Hernandez M.D. LAB BLOOD ADD-ON [facility] [address] [place] [address], [facility] NPRG [facility] [address] [place] [address] * (ABNORMAL) Basic Metabolic Panel (08/02/2023 11:02 [...] CDT Oswaldo Hernandez M.D. LAB BLOOD ADD-ON [facility] [address] [place] [address], [facility] NPRG [facility] [address] [place] [address] from Last 3 Months Care Teams Repeat Photocomposing Machine Operator Relationship Specialty Start Date End Date Elsewhere, Pcp PCP - General 08/30/21
--- OUTSIDE RECORDS SUMMARY | 2023-10-18 12:52 | XMS_ITS | Encounter Summary ---
Author Organization [facility] Address [address] [place] [address] Care Team Providers Care Set Up Mechanic Heading Machines Name Role Phone Elsewhere, Pcp Primary Care Provider Unavailabl e Encounter Details Date Type Department Care Team (Latest Contact Info) Description 2023 10:40 AM CDT - 2023 11:59 PM CDT Hospital Encounter Department of Laboratory Medicine, Specialty Clinic, in [address] [phone] Anjali Guy, ARTURO, C.N.P., M.S.N. [address] [place] [phone] Pain Epigastric Discharge Disposition: Home or Self Care Social History Tobacco Use Types Packs/Day Years Used Date Smoking Tobacco: Never Passive Smoke Exposure: Never Smokeless Tobacco: Never Alcohol Use Standard Drinks/Week Comments No 0 (1 standard drink = 0.6 oz pur e alcohol) [facility] Utilities Answer Date Recorded In the past 12 months has [facility] [employer], gas, oil, or water Epiphyte threatened to shut off services in your [...] often do you attend chur ch or episcopal services? Never 07/14/2022 Do you belong to any clubs o r organizations such as jew groups, unions, fraternal or athletic groups, or [...] medical care, and heating? Somewhat hard 07/14/2022 [facility] [place] of Occupat ional Health - Occupational Stress [...] your living situation today? I have a [facility] to live 08/17/2023 Education Answer Date [...] mg by mouth every morning before breakfast. edccxsz-Kr-boqh-FA (VINATE ONE) 60 mg iron-1 mg per tablet Take 1 tablet by mouth daily. rizatriptan (MAXALT) 10 mg tablet Take 10 mg by mouth every 2 (two) hours as needed. 06/30/2022 rizatriptan OPERATING ROOM AIDE (MAXALT-OPERATING ROOM AIDE) 10 mg disintegrating tablet TAKE 1 TABLET [...] N. LAB BODY FLUIDS AND STOOLS ORDERABLES [facility] [address] [place] [address] [facility] [address] [place] [address] * T3 (Triiodothyronine), Total, Serum (2023 10:47 AM CDT) T3 (Triiodothyroni ne), Total, S 193 80 - 200 ng/dL 08/24/2023 3:21 PM CDT DT Blood 2023 10:4 7 AM CDT 08/24/2023 2:45 PM CDT Anjali Guy APRN, C.N.P., M.S. N. LAB BLOOD NON ADD-ON [facility] [address] [place] [address], [facility] [address] [place] [address] * T4 (Thyroxine), Free, Serum (2023 10:47 AM CDT) T4 (Thyroxine), Free, S 1.4 0.9 - 1.7 ng/dL 2023 12:56 PM CDT [facility] Comment: Biotin has been identified by the bottle packer as a potential interfering substance. Higher concentrations of biotin may be found in multivitamins, hair/nail supplements, and workout supplements. If the result does not match clinical observations, repeat testing after patient refrains from the use of supplements for at least 12 hours. Blood 2023 10:4 7 AM CDT 2023 10:51 AM CDT Mariah Wren APRNNYanira., M.S. N. LAB BLOOD ADD-ON [facility] [address] [place] [address], [place] [facility] [place] [address] [place] [address] * Magnesium (2023 10:47 AM CDT) Magnesium, P 2.0 1.7 - 2.3 mg/dL 2023 11:12 AM CDT [facility] Blood (Blood, Venous) 2023 10:47 AM CDT 2023 10:51 AM CDT Mariah Wren APRNNYanira., M.S. N. LAB BLOOD ADD-ON [facility] [address] [place] [address], [place] [address] * (ABNORMAL) Thyroid Function [place] (2023 10:47 AM CDT) Pathologist [facility] TSH, Sensitive <0.03(L) 0.3 - 4.2 mIU/L 2023 12:26 PM CDT [facility] Blood (Blood, Venous) 2023 10:47 AM CDT 2023 10:51 AM CDT Amena Wren APRN.NDedraP., M.S. N. LAB BLOOD ADD-ON Performing Organization Address City/[facility]/ZIP Co de Phone Number [facility] [address] [place] [address], [address] [address] * CRP (C-Reactive Protein) (2023 10:47 AM CDT) Pathologist [facility] C-Reactive Protein (CRP), P <3.0 <5.0 mg/L 2023 11:12 AM CDT [facility] Blood (Blood, Venous) 2023 10:47 AM CDT 2023 10:51 AM CDT Anjali Guy APRN, C.N.P., M.S. N. LAB BLOOD ADD-ON Performing Organization Address City/State/[facility] Co de Phone Number [facility] [place] [address], [facility] MKTO [facility] [place] [address] [place] [address] documented in this encounter Visit Diagnoses Diagnosis Pain Epigastric documented in this encounter Care Teams Set Up Mechanic Heading Machines Relationship Specialty Start Date End Date Elsewhere, Pcp PCP - General 08/30/21 documented as of this encounter
--- OUTSIDE RECORDS SUMMARY | 2023-10-18 12:52 | XMS_ITS | Clinical Summary ---
Author Organization [facility] Address [address] [place] [address] Care Team Providers Care Adult Live In Caregiver Name Role Phone Elsewhere, Pcp Primary Care Provider Unavailabl e Source Comments Patient records contain information from all sites at [facility]. For routine questions regarding patient records, call [phone] during business hours, M-F 8:00 AM - 5:00 PM Central Time. Record requests for emergency care only can be directed to [phone] at any time.[facility] Allergies Active Allergy Reactions Criticality Noted Date [...] daily. 30 capsule 11 07/14/2022 Active rizatriptan ELECTRONIC PUBLICATIONS SPECIALIST (MAXALT-ELECTRONIC PUBLICATIONS SPECIALIST) 10 mg disintegrating tablet TAKE 1 TABLET BY MOUTH AT ONSET OF HEADACHE , MAY REPEAT AFTER 2 HOURS MAX2/DAY 08/26/2022 Active pantoprazole (PROTONIX) 20 mg EC tablet Take 20 mg by mouth every morning before breakfast. Active iwfwvhu-Ma-gisu-FA (VINATE ONE) 60 mg iron-1 mg per [...] Department of Laboratory Medicine, Specialty Clinic, in [address] [phone] Anjali Ferrari, ARTURO, C.N.P., M.S.N. Pain Epigastric Discharge Disposition: Home or Self Care 2023 9:45 AM CDT Comprehensive Visit Department of Gastroenterology in [address] [phone] Anjali Ferrari, ARTURO, C.N.P., M.S.N. Nausea (Primary Dx); Pain Epigastric Discharge Disposition: Home or Self Care 08/11/2023 Clinical Communication Department of Gastroenterology in [address] [phone] Johny Leavitt R.N. GI Chart Prep 08/02/2023 10:50 AM CDT - 08/02/2023 12:55 PM CDT Emergency [place] [facility] [address] [place] [phone] Oswaldo Hernandez M.D. Nausea And Vomiting [...] = 0.6 oz pur e alcohol) [facility] Utilities Answer Date Recorded In [...] any clubs o r organizations such as adventism groups, unions, fraternal or athletic groups, or [...] medical care, and heating? Somewhat hard 07/14/2022 [facility] [place] of Occupat ional Health - Occupational Stress [...] FLUIDS AND STOOLS ORDERABLES Performing Organization Address City/State/[facility] Co de Phone Number [facility] [address] [place] [address] [facility] [address] [place] [address] * T4 (Thyroxine), Free, Serum (2023 10:47 AM CDT) T4 (Thyroxine), Free, S 1.4 0.9 - 1.7 ng/dL 2023 12:56 PM CDT MKTO Comment: Biotin has been identified by the electric motor rebuilder as a potential interfering substance. Higher concentrations of biotin may be found in multivitamins, hair/nail supplements, and workout supplements. If the result does not match clinical observations, repeat testing after patient refrains from the use of supplements for at least 12 hours. Blood 2023 10:4 7 AM CDT 2023 10:51 AM CDT Anjali Guy APRN, C.N.P., M.S. N. LAB BLOOD ADD-ON [facility] [address] [place] [address], [facility] in [place] [address] [place] [address] * T3 (Triiodothyronine), Total, Serum (2023 10:47 AM CDT) T3 (Triiodothyroni ne), Total, S 193 80 - 200 ng/dL 08/24/2023 3:21 PM CDT [facility] Blood 2023 10:4 7 AM CDT 08/24/2023 2:45 PM CDT Anjali Guy APRN, C.N.P., M.S. N. LAB BLOOD NON ADD-ON Performing Organization Address City/[facility]/ZIP Co de Phone Number [facility] [address] [place] [address], [facility] [address] [place] [address] * (ABNORMAL) Thyroid Function [place] (2023 10:47 AM CDT) TSH, Sensitive <0.03(L) 0.3 - 4.2 mIU/L 2023 12:26 PM CDT [facility] Blood (Blood, Venous) 2023 10:47 AM CDT 2023 10:51 AM CDT Anjali Guy APRN, C.N.P., M.S. N. LAB BLOOD ADD-ON [facility] [address] [place] [address], [address] [address] * CRP (C-Reactive Protein) (2023 10:47 AM CDT) Pathologist [facility] C-Reactive Protein (CRP), P <3.0 <5.0 mg/L 2023 11:12 AM CDT [facility] Blood (Blood, Venous) 2023 10:47 AM CDT 2023 10:51 AM CDT Anjali Guy APRN, C.N.P., M.S. N. LAB BLOOD ADD-ON [facility] [address] [place] [address], [address] [address] * Magnesium (2023 10:47 AM CDT) [facility] Magnesium, P 2.0 1.7 - 2.3 mg/dL 2023 11:12 AM CDT [facility] Blood (Blood, Venous) 2023 10:47 AM CDT 2023 10:51 AM CDT Anjali Guy APRN, C.N.P., M.S. N. LAB BLOOD ADD-ON [facility] [address] [place] [address], [address] [address] * (ABNORMAL) CBC with Differential, Blood (08/02/2023 [...] CDT Oswaldo Hernandez M.D. LAB BLOOD ADD-ON [facility] [address] [place] [address], [facility] NPRG [facility] [address] [place] [address] * (ABNORMAL) Basic Metabolic Panel (08/02/2023 11:02 [...] CDT Oswaldo Hernandez M.D. LAB BLOOD ADD-ON [facility] [address] [place] [address], [place] [facility] [address] [place] [address] from Last 3 Months Care Teams Adult Live In Caregiver Relationship Specialty Start Date End Date Elsewhere, Pcp PCP - General 08/30/21
--- OUTSIDE RECORDS SUMMARY | 2023-10-18 12:53 | XMS_ITS | Clinical Summary ---
Author Organization [facility] Address [place], [place] [address] Care Team Providers Care Hearing Dog Trainer Name Role Phone Sourav Mehta Primary Care Provider Unavail able Allergies No [...] Encounters Date Type Department Care Team Description 10/12/2023 Telephone [facility] [address] [place] [address] Sourav Mehta Questions from Last 3 Months Immunizations Name Administration [...] Relation Name Comments Bipolar disorder Brother 1 [place] Thyroid Disease Brother 1 Eran Good Health [...] Comments Blood Pressure 118/72 06/30/2022 2:37 PM ROLLER SKATE ASSEMBLER Pulse 83 06/30/2022 2:37 PM ROLLER SKATE ASSEMBLER Temperature 36.9 ??C (98.4 ??F) 12/25/2021 4:00 PM CD T Respiratory Rate 16 12/25/2021 4:00 PM CDT Oxygen Saturation 98% 12/25/2021 4:00 PM CDT Inhaled Oxygen Concentration - - Weight 52.2 kg (115 lb) 06/30/2022 2:37 PM ROLLER SKATE ASSEMBLER Height 162.6 cm (5' 4) 12/25/2021 4:00 [...] Tetanus booster 12/25/2022 12/25/2012 COVID-19 vaccine series ( season) 2023 Influenza for age 9-49 01/08/2024 9, 03/15/2002 Pap test for age 21-65 03/24/2026 03/24/2023 Pneumococcal series for age 6-64 Aged Out 11/22/2001, 2000, 2000 No longer eligible based on patient's age to complete this topic Tdap Completed 12/25/2012 HPV series for age 9-26 Completed 02/21/20 19, 12/25/2012 Procedures Procedure Name Priority Date/Time Associated Diagnosis Comments INDUSTRIAL CUSTODIAN THIN PREP PAP SCREEN IMAGED Routine 03/24/2023 12:00 PM ROLLER SKATE ASSEMBLER from Last 3 Months or Most Recently Relevant to Health Maintenance Results * INDUSTRIAL CUSTODIAN THIN PREP PAP SCREEN IMAGED (03/24/2023 12:00 PM ROLLER SKATE ASSEMBLER) Case Report Gynecologic Cytology Report ? Case: [id number] ? Authorizing Provider: ??Harmony Colon ?Collected: ? 03/24/2023 1200 ? Lennie, ? Ordering Location: ? [facility] ?Received: ?03/28/2023 1655 ? First Screen: ?Nino Dimas ? Specimen: ?INDUSTRIAL CUSTODIAN ThinPrep Vial Screening, Cervical ? 04/07/2023 1:26 PM ROLLER SKATE ASSEMBLER [facility] ENTRAL LABORATORY INTERPRETATION/ RESULT NEGATIVE FOR INTRAEPITHELIAL LESION OR MALIGNANCY (NIL) (none) 04/07/2023 1:26 PM ROLLER SKATE ASSEMBLER [facility] [employer] [facility] ENTRAL LABORATORY IMEN ADEQUACY Satisfactory for evaluation Endocervical component present 04/07/2023 1:26 PM ROLLER SKATE ASSEMBLER [facility] [employer] [facility] HPV REQUEST HPV not requested 2022 1:26 PM ROLLER SKATE ASSEMBLER [facility] ENTRAL LABORATORY Date of LMP 03/05/2023 04/07/2023 1:26 PM ROLLER SKATE ASSEMBLER [facility] ENTRAL LABORATORY Abnormal Pap or Bartlett Bx in last 5 years No 04/07/2023 1:26 PM ROLLER SKATE ASSEMBLER [facility] [employer] [facility] ENTRAL LABORATORY Menstrual Status Irregular Periods 04/07/2023 1:26 PM ROLLER SKATE ASSEMBLER [facility] ENTRAL LABORATORY Bartlett Bx Done Today No 04/07/2023 1:26 PM ROLLER SKATE ASSEMBLER [facility] ENTRAL LABORATORY Additional Information 04/07/2023 1:26 PM ROLLER SKATE ASSEMBLER [facility] [employer] [facility] ENTRAL LABORATORY Comment: Interpreted at [facility] - [address] [place] [id number] Automated Review Successful 04/07/2023 1:26 PM ROLLER SKATE ASSEMBLER [facility] [employer] [facility] ENTRAL LABORATORY Comment:Specimen processed s uccessfully by automated director digital strategy device, ThinPrep Imaging System, [employer] Note The pap test is a screening technique, not a diagnostic procedure. It is used primarily to screen for squamous cancers and precursor lesions. Published studies have shown that it is subject to both false negative and false positive results. The pap test should not be used as the sole means to diagnose or exclude pre-malignant and malignant lesions. 04/07/2023 1:26 PM ROLLER SKATE ASSEMBLER [facility] Other (Cervical) 03/24/2023 12:00 PM ROLLER SKATE ASSEMBLER 03/28/2023 4:55 PM ROLLER SKATE ASSEMBLER Harmony Colon MD PATHOLOGY/ CYTOLOGY [facility] [employer] [facility] [address] [place] [address], [place] from Last 3 Months or Most Recently Relevant to Health Maintenance Care Teams Hearing Dog Trainer Relationship Specialty Start Date End Date Sourav Mehta PCP - General 02/02/20
--- OUTSIDE RECORDS SUMMARY | 2023-10-18 12:53 | XMS_ITS | Encounter Summary ---
Author Organization [facility] Address [address] [place] [address] Care Team Providers Care Department Supervisor Name Role Phone Elsewhere, Pcp Primary Care Provider Unavailabl e Reason for Visit * Reason Comments Vomiting Pt presents to the E D with vomiting. Pt is 9 weeks . Encounter Details Date Type Department Care Team (Late st Contact Info) Description 08/02/2023 10:50 AM CDT - 08/02/2023 12:55 PM CDT Emergency [place] [facility] [address] [place] [phone] Oswaldo Hernandez M.D. [address] [place] [phone] Nausea And Vomiting (Primary Dx); Dehydration; Migraine [...] any clubs o r organizations such as jehovah's witness groups, unions, fraternal or athletic groups, or [...] medical care, and heating? Somewhat hard 07/14/2022 [facility] of Occupat ional Health - Occupational [...] Body Mass Index 18.71 04/18/2023 5:49 PM PRINCIPAL CONSULTING ENGINEER documented in this encounter Discharge Instructions * Attachments The following attachments cannot be sent through Care Everywhere. * Migraine Headache Bkvx-lq-Lbiv ([place]izen [place]) * Dehydration Adult Hxkk-si-Zsnv ([place]izen [place]) documented in this encounter Medications at Time of Discharge Medication Sig Dispensed Refills Start Date End Date ferrous sulfate (IRON ORAL) Take by mouth. ondansetron ODT (ZOFRAN-ODT) 4 mg disintegrating tablet DISSOLVE ONE TABLET BY MOUTH EVERY 8 HOURS NEEDED FOR NAUSEA AND VOMITING 07/27/2023 pantoprazole (PROTONIX) 20 mg EC tablet Take 20 mg by mouth every morning before breakfast. glpxfgu-Br-omqv-FA (VINATE ONE) 60 mg iron-1 mg per tablet Take 1 tablet by mouth daily. rizatriptan (MAXALT) 10 mg tablet Take 10 mg by mouth every 2 (two) hours as needed. 06/30/2022 rizatriptan MANAGER SITE (MAXALT-MANAGER SITE) 10 mg disintegrating tablet TAKE 1 TABLET [...] Oswaldo Hernandez M.D. LAB BLOOD ADD-ON [facility] [address] [place] [address], [facility] NPRG [facility] [address] [place] [address] * (ABNORMAL) CBC with Differential, Blood (08/02/2023 [...] Oswaldo Hernandez M.D. LAB BLOOD ADD-ON [facility] [address] [place] [address], [facility] NPRG [facility] [address] [place] [address] documented in this encounter Visit Diagnoses Diagnosis [...] injection documented in this encounter Care Teams Department Supervisor Relationship Specialty Start Date End Date Elsewhere, Pcp PCP - General 08/30/21 documented as of this encounter
--- OUTSIDE RECORDS SUMMARY | 2023-10-18 12:53 | XMS_ITS | Encounter Summary ---
Author Organization [facility] Address [address] [place] [address] Care Team Providers Care Optical Fabricator Name Role Phone Elsewhere, Pcp Primary Care Provider Unavailabl e Reason for Visit * Reason Onset Date Comments GI Chart Prep 08/11/2023 Encounter Details Date Type Department Care Team (Latest Contact Info) Description 08/11/2023 Clinical Communication Department of Gastroenterology in [address] [phone] Johny Leavitt R.N. GI Chart [...] often do you attend chur ch or samaritan services? Never 07/14/2022 Do you belong to any clubs o r organizations such as alevism groups, unions, fraternal or athletic groups, or [...] medical care, and heating? Somewhat hard 07/14/2022 [facility] [place] of Occupat ional Health - Occupational Stress [...] on filedocumented in this encounter Care Teams Optical Fabricator Relationship Specialty Start Date End Date Elsewhere, Pcp PCP - General 08/30/21 documented as of this encounter
--- OUTSIDE RECORDS SUMMARY | 2023-10-18 12:53 | XMS_ITS | Encounter Summary ---
Author Organization [facility] Address [address] [place] [address] Care Team Providers Care Seam Presser Name Role Phone Elsewhere, Pcp Primary Care Provider Unavailabl e Reason for Referral * Outpatient (Routine) - Authorized Specialty Diagnoses / Procedures Referred By Contact Referred To Contact Gastroenterology and Hepatology Anjali Guy APRN, C.NRamya, M.S.N. [address] [place] [phone] [facility] Referral ID Status Reason Start Date Expiration Date V isits Requested Visits Authorized [id number] Authorized 2023 02/20/2025 1 1 Reason for Visit * Reason Comments Abdominal Pain Consult * Outpatient (Routine) - Closed Specialty Diagnoses / Procedures Referred By Contact Referred To Contact Gastroenterology and Hepatology Diagnoses Pain Abdominal NOS Shalonda Barrett M.D. [address] [place] [address] [facility] Referral ID Status Reason Start Date Expiration Date Visits Re quested Visits Authorized [id number] Closed 06/15/2023 12/14/2024 1 1 Encounter Details Date Type Department Care Team (Latest Contact Info) Description 2023 9:45 AM CDT Comprehensive Visit Department of Gastroenterology in [place], [place] [address] [place] [phone] Anjali Guy APRN, C.N.P., M.S.N. [address] [place] [address] Nausea (Primary Dx); Pain Epigastric Discharge Disposition: Home or Self Care Social History Tobacco Use Types Packs/Day Years Used Date Smoking Tobacco: Never Passive Smoke Exposure: Never Smokeless Tobacco: Never Alcohol Use Standard Drinks/Week Comments No 0 (1 standard drink = 0.6 oz pur e alcohol) [facility] Utilities Answer Date Recorded In the past 12 months has e electric, gas, oil, or water [employer] threatened to shut off services in your [...] often do you attend chur ch or druze services? Never 07/14/2022 Do you belong to any clubs o r organizations such as druze groups, unions, fraternal or athletic groups, or [...] medical care, and heating? Somewhat hard 07/14/2022 [facility] - Occupational Stress Questionnaire Answer [...] send out lab that we send to [place]. Please freeze this sample after collection and bring back to a [place] lab within 2-3 days. PLEASE NOTE: The order for the stool sample will 30 days after you picking machine operator the stool kit. Please ensure prompt return on samples. [facility] labs are closed on the weekends. Follow up with GI provider in 3 months, please call GI scheduling at [phone] two months prior to your recommended follow-up [...] over half of a total 43 minutes [id number] with the patient in counseling and discussion [...] <50.0 (Normal) mcg/g 08/25/2023 5:37 PM CDT [facility] Stool (Stool) 2023 7:2 9 PM CDT 08/25/2023 11:19 AM CDT Anjali Guy APRN, C.N.P., M.S. N. LAB BODY FLUIDS AND STOOLS ORDERABLES [facility] [address] [place] [address] [facility] [address] [place] [address] * Magnesium (2023 10:47 AM CDT) Magnesium, P 2.0 1.7 - 2.3 mg/dL 2023 11:12 AM CDT [facility] Blood (Blood, Venous) 2023 10:47 AM CDT 2023 10:51 AM CDT Anjali Guy APRN, C.N.P., M.S. N. LAB BLOOD ADD-ON [facility] [address] [place] [address], [place] [address] * (ABNORMAL) Thyroid Function [place] (2023 10:47 AM CDT) TSH, Sensitive <0.03(L) 0.3 - 4.2 mIU/L 2023 12:26 PM CDT [facility] Blood (Blood, Venous) 2023 10:47 AM CDT 2023 10:51 AM CDT Anjali Guy APRN, C.N.P., M.S. N. LAB BLOOD ADD-ON Performing Organization Address City/[facility]/ZIP Co de Phone Number [facility] [address] [place] [address], [place] [address] * CRP (C-Reactive Protein) (2023 10:47 AM CDT) C-Reactive Protein (CRP), P <3.0 <5.0 mg/L 2023 11:12 AM CDT [facility] Blood (Blood, Venous) 2023 10:47 AM CDT 2023 10:51 AM CDT Anjali Guy APRN, C.N.P., M.S. N. LAB BLOOD ADD-ON [facility] [address] [place] [address], [facility] in [place] [address] [place] [address] documented in this encounter Visit Diagnoses Diagnosis Nausea- Primary Pain Epigastric documented in this encounter Care Teams Seam Presser Relationship Specialty Start Date End Date Elsewhere, Pcp PCP - General 08/30/21 documented as of this encounter
--- NOTE | 2023-10-18 13:00 | CRLHL7_ITS ---
For Patients: As a result of the Century Cures Act, medical imaging exams and procedure reports are released immediately into your electronic medical record. You may view this report before your referring provider. If you have questions, please contact your health care provider. This is an OB ultrasound disease might template indication encounter for supervision of normal . There is an 07/27/2019 For [place] measurements are consistent with dates good interval growth since prior exam next number right ventricular outflow tract is not well seen. Follow-up recommended couple weeks extend otherwise normal anatomic survey thanks. Dictated by Troy Carter MD @ 10/19/2023 12:24:57 PM --ADDENDUM-- Patient: SID DONAHUE Facility:?[facility] Patient ID:?[id number] Site Patient ID:?[id number]. Site :?[id number] Study:?US-OB Pelvis -10/18/2023 1:40:38 PM Ordering Physician:?Cami Richards Final Report: INDICATION: Evaluate anatomy. COMPARISON: 07/27/2023 TECHNIQUE: Real time medel scale imaging of the fetus was performed as well as color Doppler analysis of the umbilical vessels. FINDINGS: Sonographic imaging demonstrates a single living intrauterine gestation. Fetus demonstrates a regular cardiac rate of 145 beats per minute. Fetus has a breech position. The placenta lies posteriorly without evidence of placenta previa. The edge of the placenta is located 5.0 cm from the internal cervical os. Amniotic fluid volume appears normal. Single deepest vertical pocket: 3.2 cm. The cervix is closed and measures 3.4 cm in length. The composite ultrasound gestational age is calculated at 20 weeks 4 days with an estimated sonographic due date of 03/02/2024. The estimated weight is 359 grams which lies at the 75th %. The following biometric measurements were obtained: Biparietal diameter: 4.9 cm/20 weeks 6 days 83rd% Head circumference: 18.0 cm/20 weeks 3 day 61st% Abdominal circumference: 15.9 cm/21 weeks 0 day 77th% Femur length: 3.2 cm/19 weeks 6 days 38th% The HC/AC ratio measures: 1.13 range (1.07-1.25) On anatomic survey, there is a normal appearance of the cerebral ventricles, cavum septi pellucidi, cisterna magna and cerebellum. The nose, lips, and facial profile appear normal. The cervical, thoracic and lumbar spine are well visualized and appear normal. There is a normal four-chamber heart view and the left ventricular outflow tract appear normal. Incomplete visualization of the RVOT the diaphragm and stomach appear normal. The kidneys and bladder also appear normal. There is a normal three-vessel cord and cord insertion site. The four extremities appear normal. IMPRESSION: Concordance of clinical and sonographic dating. Incomplete visualization of the RVOT. Remainder of the anatomic survey normal. Short-term follow-up recommended. Dictated by Omar Keen MD @ 10/24/2023 1:19:43 PM Signed by:?Omar Keen MD @10/24/2023 1:19:43 PM (Electronic Signature) (Electronically Signed)
== END 2023-10-18 12:51 | disposition home or self-care (01) ==
LOC: US 12:51
PROVIDERS: PCP Family Medicine; Visit Provider Obstetrics & Gynecology
DX: Z34.92 Encounter for supervision of normal pregnancy, unspecified, second trimester (principal); Z3A.20 20 weeks gestation of pregnancy
CPT/HCPCS: 76805

== ENCOUNTER 2023-11-23 14:47 | Outpatient (CLI) | payer MEDICAID, SELFPAY ==
--- OUTSIDE RECORDS SUMMARY | 2023-11-23 14:49 | XMS_ITS | Referral Summary ---
Author Organization [facility] Address [address] [place] [address] Care Team Providers Care Mechanical Manager Name Role Phone Elsewhere, Pcp Primary Care Provider Unavailabl e Source Comments Patient records contain information from all sites at [facility]. For routine questions regarding patient records, call [phone] during business hours, M-F 8:00 AM - 5:00 PM Central Time. Record requests for emergency care only can be directed to [phone] at any time.[facility] Allergies Active Allergy Reactions Criticality Noted Date [...] daily. 30 capsule 11 07/14/2022 Active rizatriptan RETAIL SALES TEAMMATE (MAXALT-RETAIL SALES TEAMMATE) 10 mg disintegrating tablet TAKE 1 TABLET BY MOUTH AT ONSET OF HEADACHE , MAY REPEAT AFTER 2 HOURS MAX2/DAY 08/26/2022 Active pantoprazole (PROTONIX) 20 mg EC tablet Take 20 mg by mouth every morning before breakfast. Active ptnqnwe-Dv-wvth-FA (VINATE ONE) 60 mg iron-1 mg per [...] drink = 0.6 oz pur e alcohol) [facility] [employer] Answer Date Recorded In the past 12 months has e [employer], gas, oil, or water [employer] threatened to shut off services in your [...] any clubs o r organizations such as rastafari groups, unions, fraternal or athletic groups, or [...] medical care, and heating? Somewhat hard 07/14/2022 [facility] of Occupat ional [facility] - Occupational Stress Questionnaire Answer Date [...] Date Recorded Dental: Regular Dentist No 07/15/19 23 Employment Answer Date Recorded Employment status Employed and actively working without restrictions 08/17/2023 Housing Stability Answer Date Recorded What is your living situation today? I have a [facility] place to live 08/17/2023 Education Answer Date [...] CDT Plan of Treatment Not on file Care Teams Mechanical Manager Relationship Specialty Start Date End Date Elsewhere, Pcp PCP - General 08/30/21
--- OUTSIDE RECORDS SUMMARY | 2023-11-23 14:49 | XMS_ITS | Clinical Summary ---
Author Organization [employer] [facility] Address [place], [place] [address] Care Team Providers Care Counselor Aide Name Role Phone Sourav Mehta Primary Care [...] Type Department Care Team Description 10/12/2023 Telephone [facility] [address] [place] [address] Sourav Mehta Questions from Last 3 Months [...] Relation Name Comments Bipolar disorder Brother 1 [place] Thyroid Disease Brother 1 Eran Good Health [...] Comments Blood Pressure 118/72 06/30/2022 2:37 PM BOBTAIL DRIVER Pulse 83 06/30/2022 2:37 PM BOBTAIL DRIVER Temperature 36.9 ??C (98.4 ??F) 12/25/2021 4:00 PM CD T Respiratory Rate 16 12/25/2021 4:00 PM CDT Oxygen Saturation 98% 12/25/2021 4:00 PM CDT Inhaled Oxygen Concentration - - Weight 52.2 kg (115 lb) 06/30/2022 2:37 PM BOBTAIL DRIVER Height 162.6 cm (5' 4) 12/25/2021 4:00 [...] Procedure Name Priority Date/Time Associated Diagnosis Comments MILLING MACHINIST THIN PREP PAP SCREEN IMAGED Routine 03/24/2023 12:00 PM BOBTAIL DRIVER from Last 3 Months or Most Recently Relevant to Health Maintenance Results * MILLING MACHINIST THIN PREP PAP SCREEN IMAGED (03/24/2023 12:00 PM BOBTAIL DRIVER) Case Report Gynecologic Cytology Report ? Case: [id number] ? Authorizing Provider: ??Harmony Colon ?Collected: ? 03/24/2023 1200 ? Lennie, ? Ordering Location: ? [facility] ?Received: ?03/28/2023 1655 ? First Screen: ?Nino Dimas ? Specimen: ?MILLING MACHINIST ThinPrep Vial Screening, Cervical ? 04/07/2023 1:26 PM BOBTAIL DRIVER [employer] [facility] ENTRAL LABORATORY INTERPRETATION/ RESULT NEGATIVE FOR INTRAEPITHELIAL LESION OR MALIGNANCY (NIL) (none) 04/07/2023 1:26 PM BOBTAIL DRIVER [facility] [employer] [facility] ENTRAL LABORATORY IMEN ADEQUACY Satisfactory for evaluation Endocervical component present 04/07/2023 1:26 PM BOBTAIL DRIVER [facility] [employer] [facility] HPV REQUEST HPV not requested 2022 1:26 PM BOBTAIL DRIVER [facility] ENTRAL LABORATORY Date of LMP 03/05/2023 04/07/2023 1:26 PM BOBTAIL DRIVER [facility] ENTRAL LABORATORY Abnormal Pap or Ironside Bx in last 5 years No 04/07/2023 1:26 PM BOBTAIL DRIVER [facility] [employer] [facility] ENTRAL LABORATORY Menstrual Status Irregular Periods 04/07/2023 1:26 PM BOBTAIL DRIVER [facility] ENTRAL LABORATORY Ironside Bx Done Today No 04/07/2023 1:26 PM BOBTAIL DRIVER [facility] ENTRAL LABORATORY Additional Information 04/07/2023 1:26 PM BOBTAIL DRIVER [facility] [employer] [facility] ENTRAL LABORATORY Comment: Interpreted at [facility] - [address] [place] [address] Automated Review Successful 04/07/2023 1:26 PM BOBTAIL DRIVER [facility] [employer] [facility] ENTRAL LABORATORY Comment:Specimen processed s uccessfully by automated block hand device, ThinPrep Imaging System, [employer] Note The pap test is a screening technique, not a diagnostic procedure. It is used primarily to screen for squamous cancers and precursor lesions. Published studies have shown that it is subject to both false negative and false positive results. The pap test should not be used as the sole means to diagnose or exclude pre-malignant and malignant lesions. 04/07/2023 1:[address] [facility] Other (Cervical) 03/24/2023 12:00 PM BOBTAIL DRIVER 03/28/2023 4:55 PM BOBTAIL DRIVER Harmony Colon MD PATHOLOGY/ CYTOLOGY [facility] [employer] [facility] [address] [place] [address], [place] from Last 3 Months or Most Recently Relevant to Health Maintenance Care Teams Counselor Aide Relationship Specialty Start Date End Date Sourav Mehta PCP - General 02/02/20
--- OUTSIDE RECORDS SUMMARY | 2023-11-23 14:49 | XMS_ITS | Encounter Summary ---
Author Organization [facility] Address [address] [place] [address] Care Team Providers Care Speedometer Mechanic Name Role Phone Elsewhere, Pcp Primary Care Provider Unavailabl e Encounter Details Date Type Department Care Team (Latest Contact Info) Description 2023 10:40 AM CDT - 2023 11:59 PM CDT Hospital Encounter Department of Laboratory Medicine, Specialty Clinic, in [address] [phone] Anjali Guy, ARTURO, C.N.P., M.S.N. [address] [place] [phone] Pain Epigastric Discharge Disposition: Home or Self Care Social History Tobacco Use Types Packs/Day Years Used Date Smoking Tobacco: Never Passive Smoke Exposure: Never Smokeless Tobacco: Never Alcohol Use Standard Drinks/Week Comments No 0 (1 standard drink = 0.6 oz pur e alcohol) [facility] Utilities Answer Date Recorded In the past 12 months has [facility] [employer], gas, oil, or water [employer] threatened to shut off services in your [...] any clubs o r organizations such as yarsani groups, unions, fraternal or athletic groups, or [...] medical care, and heating? Somewhat hard 07/14/2022 [facility] [place] of Occupat ional Health - Occupational Stress [...] your living situation today? I have a [employer] place to live 08/17/2023 Education Answer Date [...] mg by mouth every morning before breakfast. ckimozv-Ob-ehim-FA (VINATE ONE) 60 mg iron-1 mg per tablet Take 1 tablet by mouth daily. rizatriptan (MAXALT) 10 mg tablet Take 10 mg by mouth every 2 (two) hours as needed. 06/30/2022 rizatriptan BAROMETERS CALIBRATOR (MAXALT-BAROMETERS CALIBRATOR) 10 mg disintegrating tablet TAKE 1 TABLET [...] <50.0 (Normal) mcg/g 08/25/2023 5:37 PM CDT [facility] Stool (Stool) 2023 7:2 9 PM CDT 08/25/2023 11:19 AM CDT Amena Wren APRN.N.P., M.S. N. LAB BODY FLUIDS AND STOOLS ORDERABLES [facility] [address] [place] [address] [facility] [address] [place] [address] * T3 (Triiodothyronine), Total, Serum (2023 10:47 AM CDT) T3 (Triiodothyroni ne), Total, S 193 80 - 200 ng/dL 08/24/2023 3:21 PM CDT DT Blood 2023 10:4 7 AM CDT 08/24/2023 2:45 PM CDT Anjali Guy APRN, C.N.P., M.S. N. LAB BLOOD NON ADD-ON [facility] [address] [place] [address], [facility] [address] [place] [address] * T4 (Thyroxine), Free, Serum (2023 10:47 AM CDT) T4 (Thyroxine), Free, S 1.4 0.9 - 1.7 ng/dL 2023 12:56 PM CDT [facility] Comment: Biotin has been identified by the mining and quarrying machinery repairer as a potential interfering substance. Higher concentrations of biotin may be found in multivitamins, hair/nail supplements, and workout supplements. If the result does not match clinical observations, repeat testing after patient refrains from the use of supplements for at least 12 hours. Blood 2023 10:4 7 AM CDT 2023 10:51 AM CDT Mariah Wren APRNNYanira., M.S. N. LAB BLOOD ADD-ON [facility] [address] [place] [address], [place] [facility] in [place] [address] [place] [address] * Magnesium (2023 10:47 AM CDT) Magnesium, P 2.0 1.7 - 2.3 mg/dL 2023 11:12 AM CDT [facility] Blood (Blood, Venous) 2023 10:47 AM CDT 2023 10:51 AM CDT Mariah Wren APRNNYanira., M.S. N. LAB BLOOD ADD-ON [facility] [address] [place] [address], [place] [address] * (ABNORMAL) Thyroid Function [place] (2023 10:47 AM CDT) Pathologist [facility] TSH, Sensitive <0.03(L) 0.3 - 4.2 mIU/L 2023 12:26 PM CDT [facility] Blood (Blood, Venous) 2023 10:47 AM CDT 2023 10:51 AM CDT Amena Wren APRN.NDedraP., M.S. N. LAB BLOOD ADD-ON Performing Organization Address City/[facility]/ZIP Co de Phone Number [facility] [address] [place] [address], [address] [address] * CRP (C-Reactive Protein) (2023 10:47 AM CDT) Pathologist [facility] C-Reactive Protein (CRP), P <3.0 <5.0 mg/L 2023 11:12 AM CDT [facility] Blood (Blood, Venous) 2023 10:47 AM CDT 2023 10:51 AM CDT Anjali Guy APRN, C.N.P., M.S. N. LAB BLOOD ADD-ON Performing Organization Address City/State/[facility] Co de Phone Number [facility] [place] [address], [facility] MKTO [facility] in [place] [address] [place] [address] documented in this encounter Visit Diagnoses Diagnosis Pain Epigastric documented in this encounter Care Teams Speedometer Mechanic Relationship Specialty Start Date End Date Elsewhere, Pcp PCP - General 08/30/21 documented as of this encounter
--- OUTSIDE RECORDS SUMMARY | 2023-11-23 14:49 | XMS_ITS | Encounter Summary ---
Author Organization [facility] Address [address] [place] [address] Care Team Providers Care [employer] Appeals Law Clerk Name Role Phone Elsewhere, Pcp Primary Care Provider Unavailabl e Reason for Referral * Outpatient (Routine) - Authorized Specialty Diagnoses / Procedures Referred By Contact Referred To Contact Gastroenterology and Hepatology Anjali Guy APRN, C.NRamya, M.S.N. [address] [place] [phone] [facility] Referral ID Status Reason Start Date Expiration Date V isits Requested Visits Authorized [id number] Authorized 2023 02/20/2025 1 1 Reason for Visit * Reason Comments Abdominal Pain Consult * Outpatient (Routine) - Closed Specialty Diagnoses / Procedures Referred By Contact Referred To Contact Gastroenterology and Hepatology Diagnoses Pain Abdominal NOS Shalonda Barrett M.D. [address] [place] [phone] [facility] Referral ID Status Reason Start Date Expiration Date Visits Re quested Visits Authorized [id number] Closed 06/15/2023 12/14/2024 1 1 Encounter Details Date Type Department Care Team (Latest Contact Info) Description 2023 9:45 AM CDT Comprehensive Visit Department of Gastroenterology in [place], [place] [address] [place] [phone] Anjali Guy APRN, C.N.P., M.S.N. [address] [place] [phone] Nausea (Primary Dx); Pain Epigastric Discharge Disposition: Home or Self Care Social History Tobacco Use Types Packs/Day Years Used Date Smoking Tobacco: Never Passive Smoke Exposure: Never Smokeless Tobacco: Never Alcohol Use Standard Drinks/Week Comments No 0 (1 standard drink = 0.6 oz pur e alcohol) [facility] Utilities Answer Date Recorded In the past 12 months has e electric, gas, oil, or water [employer] threatened to shut off services in your [...] often do you attend chur ch or buddhist services? Never 07/14/2022 Do you belong to any clubs o r organizations such as quaker groups, unions, fraternal or athletic groups, or [...] Somewhat hard 07/14/2022 [facility] - Occupational Stress Questionnaire Answer Date [...] send out lab that we send to [place]. Please freeze this sample after collection and bring back to a [place] lab within 2-3 days. PLEASE NOTE: The order for the stool sample will 30 days after you hot die picker the stool kit. Please ensure prompt return on samples. [facility] labs are closed on the weekends. Follow up with GI provider in 3 months, please call GI scheduling at [phone] two months prior to your recommended follow-up [...] over half of a total 43 minutes [id number] with the patient in counseling and discussion and/or coordination of care as described above. Anjali Guy APRN, C.N.P., M.S.N. Gastroenterology and Hepatology [facility] documented in this encounter Plan of Treatment [...] <50.0 (Normal) mcg/g 08/25/2023 5:37 PM CDT [facility] Stool (Stool) 2023 7:2 9 PM CDT 08/25/2023 11:19 AM CDT Anjali Guy APRN, C.N.P., M.S. N. LAB BODY FLUIDS AND STOOLS ORDERABLES [facility] [address] [place] [address] [facility] [address] [place] [address] * Magnesium (2023 10:47 AM CDT) Magnesium, P 2.0 1.7 - 2.3 mg/dL 2023 11:12 AM CDT [facility] Blood (Blood, Venous) 2023 10:47 AM CDT 2023 10:51 AM CDT Anjali Guy APRN, C.N.P., M.S. N. LAB BLOOD ADD-ON [facility] [address] [place] [address], [place] [address] * (ABNORMAL) Thyroid Function [place] (2023 10:47 AM CDT) TSH, Sensitive <0.03(L) 0.3 - 4.2 mIU/L 2023 12:26 PM CDT [facility] Blood (Blood, Venous) 2023 10:47 AM CDT 2023 10:51 AM CDT Anjali Guy APRN, C.N.P., M.S. N. LAB BLOOD ADD-ON Performing Organization Address City/[facility]/ZIP Co de Phone Number [facility] [address] [place] [address], [place] [address] * CRP (C-Reactive Protein) (2023 10:47 AM CDT) C-Reactive Protein (CRP), P <3.0 <5.0 mg/L 2023 11:12 AM CDT [facility] Blood (Blood, Venous) 2023 10:47 AM CDT 2023 10:51 AM CDT Anjali Guy APRN, C.N.P., M.S. N. LAB BLOOD ADD-ON [facility] [address] [place] [address], [facility] MKTO [facility] in [place] [address] [place] [address] documented in this encounter Visit Diagnoses Diagnosis Nausea- Primary Pain Epigastric documented in this encounter Care Teams [employer] Law Clerk Relationship Specialty Start Date End Date Elsewhere, Pcp PCP - General 08/30/21 documented as of this encounter
--- OUTSIDE RECORDS SUMMARY | 2023-11-23 14:49 | XMS_ITS | Clinical Summary ---
Author Organization [facility] Address [address] [place] [address] Care Team Providers Care Heat Transfer Technician Name Role Phone Elsewhere, Pcp Primary Care Provider Unavailabl e Source Comments Patient records contain information from all sites at [facility]. For routine questions regarding patient records, call [phone] during business hours, M-F 8:00 AM - 5:00 PM Central Time. Record requests for emergency care only can be directed to [phone] at any time.[facility] Allergies Active Allergy Reactions Criticality Noted [...] daily. 30 capsule 11 07/14/2022 Active rizatriptan TEST AND TURN UP TECHNICIAN (MAXALT-TEST AND TURN UP TECHNICIAN) 10 mg disintegrating tablet TAKE 1 TABLET BY MOUTH AT ONSET OF HEADACHE , MAY REPEAT AFTER 2 HOURS MAX2/DAY 08/26/2022 Active pantoprazole (PROTONIX) 20 mg EC tablet Take 20 mg by mouth every morning before breakfast. Active srjnzzq-Qc-wrqt-FA (VINATE ONE) 60 mg iron-1 mg per [...] drink = 0.6 oz pur e alcohol) [facility] [employer] Answer Date Recorded In the past 12 months has e [employer], gas, oil, or water [employer] threatened to shut off services in your [...] often do you attend chur ch or episcopalian services? Never 07/14/2022 Do you belong to any clubs o r organizations such as moravian groups, unions, fraternal or athletic groups, or [...] medical care, and heating? Somewhat hard 07/14/2022 [facility]at ional [facility] - Occupational Stress Questionnaire Answer Date Recorded [...] 2000 Hepatitis C Screening 2000 COVID-19 Vaccine (2022-24 season) 2023 Depression Screening (Annual PHQ-2) 05/09/2023 RSV vaccine - (32-36 weeks) or 60+ years (1 - Risk 1-dose series) 01/10/2024 Influenza Vaccine (#1) 2024 02/19/2019, 2001 Cervical Cancer Screening 03/24/2026 03/24/2023 DTaP,Tdap,and Td Vaccines (8 - Td or Tdap) 11/28/2029 11/29/2019, 12/25/2012, 09/08/2004, Additional history exists Hepatitis B Vaccines Completed 11/22/2001, 11/22/2001, 2000, Additional history exists Pneumococcal vaccine (0-64 years) Aged Out 11/22/2001, 2000, 2000 No longer eligible based on patient's age to complete this topic HPV Vaccines Completed 02/20/2019, 12/07, 12/25/2012 Care Teams Heat Transfer Technician Relationship Specialty Start Date End Date Elsewhere, Pcp PCP - General 08/30/21
--- OUTSIDE RECORDS SUMMARY | 2023-11-23 14:49 | XMS_ITS ---
Author Organization [facility] Address [address] [place] [address] Care Team Providers Care Gang Head Saw Operator Name Role Phone Unavailable Unavailable Unavailable Surgery Details Not on file Complications Check Surgery Details section. Procedure Estimated Blood Loss Check Surgery Details section. Procedure Findings Check Surgery Details section. Procedure Specimens Taken Check Surgery Details section.
--- NOTE | 2023-11-23 15:00 | CRLHL7_ITS ---
For Patients: As a result of the Century Cures Act, medical imaging exams and procedure reports are released immediately into your electronic medical record. You may view this report before your referring provider. If you have questions, please contact your health care provider. INDICATION: anatomy screen follow up COMPARISON: 10/18/2023 TECHNIQUE: Real-time medel-scale imaging of the pelvis was performed. FINDINGS: heart rate 152 beats per minute. Normal RVOT. Four-chamber heart normal. Normal LVOT. Vertex position. Posterior placenta. Normal amniotic fluid volume with single deepest pocket 4.7 cm. Normal profile. IMPRESSION: Normal RVOT. Dictated by Omar Keen MD @ 11/25/2023 6:04:55 AM (Electronically Signed)
== END 2023-11-23 14:48 | disposition home or self-care (01) ==
LOC: US 14:48
PROVIDERS: PCP Family Medicine; Visit Provider Advanced Practice Midwife
DX: Z34.90 Encounter for supervision of normal pregnancy, unspecified, unspecified trimester (principal)
CPT/HCPCS: 76816

== ENCOUNTER 2023-11-25 14:33 | Outpatient (CLI) | payer MEDICAID, SELFPAY ==
--- OUTSIDE RECORDS SUMMARY | 2023-11-25 14:36 | XMS_ITS ---
Author Organization [facility] Address [address] [place] [address] Care Team Providers Care Ui Architect Name Role Phone Unavailable Unavailable Unavailable Surgery Details Not on file Complications Check Surgery Details section. Procedure Estimated Blood Loss Check Surgery Details section. Procedure Findings Check Surgery Details section. Procedure Specimens Taken Check Surgery Details section.
--- OUTSIDE RECORDS SUMMARY | 2023-11-25 14:36 | XMS_ITS | Encounter Summary ---
Author Organization [facility] Address [address] [place] [address] Care Team Providers Care Spa Consultant Name Role Phone Elsewhere, Pcp Primary Care Provider Unavailabl e Reason for Referral * Outpatient (Routine) - Authorized Specialty Diagnoses / Procedures Referred By Contact Referred To Contact Gastroenterology and Hepatology Anjali Guy APRN, C.NRamya, M.S.N. [address] [place] [phone] [facility] Referral ID Status Reason Start Date Expiration Date V isits Requested Visits Authorized [id number] Authorized 2023 02/20/2025 1 1 Reason for Visit * Reason Comments Abdominal Pain Consult * Outpatient (Routine) - Closed Specialty Diagnoses / Procedures Referred By Contact Referred To Contact Gastroenterology and Hepatology Diagnoses Pain Abdominal NOS Shalonda Barrett M.D. [address] [place] [phone] [facility] Referral ID Status Reason Start Date Expiration Date Visits Re quested Visits Authorized [id number] Closed 06/15/2023 12/14/2024 1 1 Encounter Details Date Type Department Care Team (Latest Contact Info) Description 2023 9:45 AM CDT Comprehensive Visit Department of Gastroenterology in [place], [place] [address] [place] [phone] Anjali Guy APRN, C.N.P., M.S.N. [address] [place] [phone] Nausea (Primary Dx); Pain Epigastric Discharge Disposition: Home or Self Care Social History Tobacco Use Types Packs/Day Years Used Date Smoking Tobacco: Never Passive Smoke Exposure: Never Smokeless Tobacco: Never Alcohol Use Standard Drinks/Week Comments No 0 (1 standard drink = 0.6 oz pur e alcohol) [facility] Utilities Answer Date Recorded In the past 12 months has e electric, gas, oil, or water [employer] threatened to shut off services in your [...] any clubs o r organizations such as episcopal groups, unions, fraternal or athletic groups, or [...] Somewhat hard 07/14/2022 [facility] - Occupational Stress Questionnaire Answer Date [...] send out lab that we send to [place]. Please freeze this sample after collection and bring back to a [place] lab within 2-3 days. PLEASE NOTE: The order for the stool sample will 30 days after you potato picker the stool kit. Please ensure prompt return on samples. [facility] labs are closed on the weekends. Follow up with GI provider in 3 months, please call GI scheduling at [phone] two months prior to your recommended follow-up [...] over half of a total 43 minutes [id number] with the patient in counseling and discussion and/or coordination of care as described above. Anjali Guy APRN, C.N.P., M.S.N. Gastroenterology and Hepatology [facility] documented in this encounter Plan of Treatment [...] <50.0 (Normal) mcg/g 08/25/2023 5:37 PM CDT [facility] Stool (Stool) 2023 7:2 9 PM CDT 08/25/2023 11:19 AM CDT Anjali Guy APRN, C.N.P., M.S. N. LAB BODY FLUIDS AND STOOLS ORDERABLES [facility] [address] [place] [address] [facility] [address] [place] [address] * Magnesium (2023 10:47 AM CDT) Magnesium, P 2.0 1.7 - 2.3 mg/dL 2023 11:12 AM CDT [facility] Blood (Blood, Venous) 2023 10:47 AM CDT 2023 10:51 AM CDT Anjali Guy APRN, C.N.P., M.S. N. LAB BLOOD ADD-ON [facility] [address] [place] [address], [place] [address] * (ABNORMAL) Thyroid Function [place] (2023 10:47 AM CDT) TSH, Sensitive <0.03(L) 0.3 - 4.2 mIU/L 2023 12:26 PM CDT [facility] Blood (Blood, Venous) 2023 10:47 AM CDT 2023 10:51 AM CDT Anjali Guy APRN, C.N.P., M.S. N. LAB BLOOD ADD-ON Performing Organization Address City/[facility]/ZIP Co de Phone Number [facility] [address] [place] [address], [place] [address] * CRP (C-Reactive Protein) (2023 10:47 AM CDT) C-Reactive Protein (CRP), P <3.0 <5.0 mg/L 2023 11:12 AM CDT [facility] Blood (Blood, Venous) 2023 10:47 AM CDT 2023 10:51 AM CDT Anjali Guy APRN, C.N.P., M.S. N. LAB BLOOD ADD-ON [facility] [address] [place] [address], [facility] MKTO [facility] in [place] [address] [place] [address] documented in this encounter Visit Diagnoses Diagnosis Nausea- Primary Pain Epigastric documented in this encounter Care Teams Spa Consultant Relationship Specialty Start Date End Date Elsewhere, Pcp PCP - General 08/30/21 documented as of this encounter
--- OUTSIDE RECORDS SUMMARY | 2023-11-25 14:36 | XMS_ITS | Encounter Summary ---
Author Organization [facility] Address [address] [place] [address] Care Team Providers Care Bag Worker Name Role Phone Elsewhere, Pcp Primary Care Provider Unavailabl e Encounter Details Date Type Department Care Team (Latest Contact Info) Description 2023 10:40 AM CDT - 2023 11:59 PM CDT Hospital Encounter Department of Laboratory Medicine, Specialty Clinic, in [address] [phone] Anjali Guy, ARTURO, C.N.P., M.S.N. [address] [place] [phone] Pain Epigastric Discharge Disposition: Home or Self Care Social History Tobacco Use Types Packs/Day Years Used Date Smoking Tobacco: Never Passive Smoke Exposure: Never Smokeless Tobacco: Never Alcohol Use Standard Drinks/Week Comments No 0 (1 standard drink = 0.6 oz pur e alcohol) [facility] Utilities Answer Date Recorded In the past 12 months has [facility] [employer], gas, oil, or water [employer] threatened to shut off services in your [...] often do you attend chur ch or gnosticism services? Never 07/14/2022 Do you belong to [...] medical care, and heating? Somewhat hard 07/14/2022 [facility] Occupat ional Health - Occupational Stress [...] your living situation today? I have a [facility] place to live 08/17/2023 Education Answer [...] mg by mouth every morning before breakfast. llmakqc-Es-bjgd-FA (VINATE ONE) 60 mg iron-1 mg per tablet Take 1 tablet by mouth daily. rizatriptan (MAXALT) 10 mg tablet Take 10 mg by mouth every 2 (two) hours as needed. 06/30/2022 rizatriptan INSURANCE PROCESSOR (MAXALT-INSURANCE PROCESSOR) 10 mg disintegrating tablet TAKE 1 TABLET [...] <50.0 (Normal) mcg/g 08/25/2023 5:37 PM CDT [facility] Stool (Stool) 2023 7:2 9 PM CDT 08/25/2023 11:19 AM CDT Amena Wren APRN.N.P., M.S. N. LAB BODY FLUIDS AND STOOLS ORDERABLES [facility] [address] [place] [address] [facility] [address] [place] [address] * T3 (Triiodothyronine), Total, Serum (2023 10:47 AM CDT) T3 (Triiodothyroni ne), Total, S 193 80 - 200 ng/dL 08/24/2023 3:21 PM CDT DT Blood 2023 10:4 7 AM CDT 08/24/2023 2:45 PM CDT Anjali Gyu APRN, C.N.P., M.S. N. LAB BLOOD NON ADD-ON [facility] [address] [place] [address], [facility] [address] [place] [address] * T4 (Thyroxine), Free, Serum (2023 10:47 AM CDT) T4 (Thyroxine), Free, S 1.4 0.9 - 1.7 ng/dL 2023 12:56 PM CDT [facility] Comment: Biotin has been identified by the oral surgery physician as a potential interfering substance. Higher concentrations of biotin may be found in multivitamins, hair/nail supplements, and workout supplements. If the result does not match clinical observations, repeat testing after patient refrains from the use of supplements for at least 12 hours. Blood 2023 10:4 7 AM CDT 2023 10:51 AM CDT Mariah Wren APRNNYanira., M.S. N. LAB BLOOD ADD-ON [facility] [address] [place] [address], [place] MKTO [facility] in [place] [address] [place] [address] * Magnesium (2023 10:47 AM CDT) Magnesium, P 2.0 1.7 - 2.3 mg/dL 2023 11:12 AM CDT [facility] Blood (Blood, Venous) 2023 10:47 AM CDT 2023 10:51 AM CDT Mariah Wren APRNNYanira., M.S. N. LAB BLOOD ADD-ON [facility] [address] [place] [address], [place] [address] * (ABNORMAL) Thyroid Function [place] (2023 10:47 AM CDT) Pathologist [facility] TSH, Sensitive <0.03(L) 0.3 - 4.2 mIU/L 2023 12:26 PM CDT [facility] Blood (Blood, Venous) 2023 10:47 AM CDT 2023 10:51 AM CDT Amena Wren APRN.NDedraP., M.S. N. LAB BLOOD ADD-ON Performing Organization Address City/[facility]/ZIP Co de Phone Number [facility] [address] [place] [address], [address] [address] * CRP (C-Reactive Protein) (2023 10:47 AM CDT) Pathologist [facility] C-Reactive Protein (CRP), P <3.0 <5.0 mg/L 2023 11:12 AM CDT [facility] Blood (Blood, Venous) 2023 10:47 AM CDT 2023 10:51 AM CDT Anjali uGy APRN, C.N.P., M.S. N. LAB BLOOD ADD-ON Performing Organization Address City/State/[facility] Co de Phone Number [facility] [place] [address], [facility] MKTO [facility] in [place] [address] [place] [address] documented in this encounter Visit Diagnoses Diagnosis Pain Epigastric documented in this encounter Care Teams Bag Worker Relationship Specialty Start Date End Date Elsewhere, Pcp PCP - General 08/30/21 documented as of this encounter
--- OUTSIDE RECORDS SUMMARY | 2023-11-25 14:36 | XMS_ITS | Clinical Summary ---
Author Organization [employer] [facility] Address [place], [place] [address] Care Team Providers Care [employer] Freight Car Cleaner Name Role Phone Sourav Mehta Primary Care [...] Type Department Care Team Description 10/12/2023 Telephone [facility] [address] [place] [address] Sourav Mehta Questions from Last 3 Months [...] Relation Name Comments Bipolar disorder Brother 1 [place] Thyroid Disease Brother 1 Eran Good Health [...] Comments Blood Pressure 118/72 06/30/2022 2:37 PM MARKETING CONSULTANT Pulse 83 06/30/2022 2:37 PM MARKETING CONSULTANT Temperature 36.9 ??C (98.4 ??F) 12/25/2021 4:00 PM CD T Respiratory Rate 16 12/25/2021 4:00 PM CDT Oxygen Saturation 98% 12/25/2021 4:00 PM CDT Inhaled Oxygen Concentration - - Weight 52.2 kg (115 lb) 06/30/2022 2:37 PM MARKETING CONSULTANT Height 162.6 cm (5' 4) 12/25/2021 4:00 [...] Procedure Name Priority Date/Time Associated Diagnosis Comments DATA CONVERSION OPERATOR THIN PREP PAP SCREEN IMAGED Routine 03/24/2023 12:00 PM MARKETING CONSULTANT from Last 3 Months or Most Recently Relevant to Health Maintenance Results * DATA CONVERSION OPERATOR THIN PREP PAP SCREEN IMAGED (03/24/2023 12:00 PM MARKETING CONSULTANT) Case Report Gynecologic Cytology Report ? Case: [id number] ? Authorizing Provider: ??Harmony Colon ?Collected: ? 03/24/2023 1200 ? Lennie, ? Ordering Location: ? [facility] ?Received: ?03/28/2023 1655 ? First Screen: ?Nino Dimas ? Specimen: ?DATA CONVERSION OPERATOR ThinPrep Vial Screening, Cervical ? 04/07/2023 1:26 PM MARKETING CONSULTANT [facility] ENTRAL LABORATORY INTERPRETATION/ RESULT NEGATIVE FOR INTRAEPITHELIAL LESION OR MALIGNANCY (NIL) (none) 04/07/2023 1:26 PM MARKETING CONSULTANT [facility] [employer] [facility] ENTRAL LABORATORY IMEN ADEQUACY Satisfactory for evaluation Endocervical component present 04/07/2023 1:26 PM MARKETING CONSULTANT [facility] HPV REQUEST HPV not requested 2022 1:26 PM MARKETING CONSULTANT [facility] ENTRAL LABORATORY Date of LMP 03/05/2023 04/07/2023 1:26 PM MARKETING CONSULTANT [facility] ENTRAL LABORATORY Abnormal Pap or [place] Bx in last 5 years No 04/07/2023 1:26 PM MARKETING CONSULTANT [facility] [employer] [facility] ENTRAL LABORATORY Menstrual Status Irregular Periods 04/07/2023 1:26 PM MARKETING CONSULTANT [facility] ENTRAL LABORATORY [place] Bx Done Today No 04/07/2023 1:26 PM MARKETING CONSULTANT [facility] EN[facility]AL [facility] Additional Information 04/07/2023 1:26 PM MARKETING CONSULTANT [facility] [employer] [facility] ENTRAL LABORATORY Comment: Interpreted at [facility] - [address] [place] [id number] Automated Review Successful 04/07/2023 1:26 PM MARKETING CONSULTANT [facility] [employer] [facility] ENTRAL LABORATORY Comment:Specimen processed s uccessfully by automated wireless sales associate device, ThinPrep Imaging System, [employer] Note The pap test is a screening technique, not a diagnostic procedure. It is used primarily to screen for squamous cancers and precursor lesions. Published studies have shown that it is subject to both false negative and false positive results. The pap test should not be used as the sole means to diagnose or exclude pre-malignant and malignant lesions. 04/07/2023 1:26 PM MARKETING CONSULTANT [facility] Other (Cervical) 03/24/2023 12:00 PM MARKETING CONSULTANT 03/28/2023 4:55 PM MARKETING CONSULTANT Harmony Colon MD PATHOLOGY/ CYTOLOGY [facility] [employer] [facility] [address] [place] [address], [place] from Last 3 Months or Most Recently Relevant to Health Maintenance Care Teams [employer] Freight Car Cleaner Relationship Specialty Start Date End Date Sourav Mehta PCP - General 02/02/20
--- OUTSIDE RECORDS SUMMARY | 2023-11-25 14:36 | XMS_ITS | Referral Summary ---
Author Organization [facility] Address [address] [place] [address] Care Team Providers Care Automatic Dry Starch Operator Name Role Phone Elsewhere, Pcp Primary Care Provider Unavailabl e Source Comments Patient records contain information from all sites at [facility]. For routine questions regarding patient records, call [phone] during business hours, M-F 8:00 AM - 5:00 PM Central Time. Record requests for emergency care only can be directed to [phone] at any time.[facility] Allergies Active Allergy Reactions Criticality Noted Date [...] daily. 30 capsule 11 07/14/2022 Active rizatriptan MANPOWER DEVELOPMENT ADVISOR (MAXALT-MANPOWER DEVELOPMENT ADVISOR) 10 mg disintegrating tablet TAKE 1 TABLET BY MOUTH AT ONSET OF HEADACHE , MAY REPEAT AFTER 2 HOURS MAX2/DAY 08/26/2022 Active pantoprazole (PROTONIX) 20 mg EC tablet Take 20 mg by mouth every morning before breakfast. Active xyfcoum-Xv-nbsv-FA (VINATE ONE) 60 mg iron-1 mg per [...] oz pur e alcohol) [facility] [employer] Answer Date Recorded In the past 12 months has e [employer], gas, oil, or water [employer] threatened to shut off services in your [...] often do you attend chur ch or yazidi services? Never 07/14/2022 Do you belong to [...] 07/14/2022 [facility] of Occupat ional [facility] - Occupational Stress Questionnaire Answer [...] your living situation today? I have a [facility] place to live 08/17/2023 Education Answer [...] of Treatment Not on file Care Teams Automatic Dry Starch Operator Relationship Specialty Start Date End Date Elsewhere, Pcp PCP - General 08/30/21
--- OUTSIDE RECORDS SUMMARY | 2023-11-25 14:36 | XMS_ITS | Clinical Summary ---
Author Organization [facility] Address [address] [place] [address] Care Team Providers Care Tissue Rewinder Name Role Phone Elsewhere, Pcp Primary Care Provider Unavailabl e Source Comments Patient records contain information from all sites at [facility]. For routine questions regarding patient records, call [phone] during business hours, M-F 8:00 AM - 5:00 PM Central Time. Record requests for emergency care only can be directed to [phone] at any time.[facility] Allergies Active Allergy Reactions Criticality Noted [...] daily. 30 capsule 11 07/14/2022 Active rizatriptan SQUARE CUTTER (MAXALT-SQUARE CUTTER) 10 mg disintegrating tablet TAKE 1 TABLET BY MOUTH AT ONSET OF HEADACHE , MAY REPEAT AFTER 2 HOURS MAX2/DAY 08/26/2022 Active pantoprazole (PROTONIX) 20 mg EC tablet Take 20 mg by mouth every morning before breakfast. Active jujryes-Go-glxk-FA (VINATE ONE) 60 mg iron-1 mg per [...] 0.6 oz pur e alcohol) [facility] [employer] Answer Date Recorded In the past 12 months has e [employer], gas, oil, or water [employer] threatened to shut off services in your [...] care, and heating? Somewhat hard 07/14/2022 [facility] of Occupat ional [facility] - [...] Vaccines Completed 02/20/2019, 12/07, 12/25/2012 Care Teams Tissue Rewinder Relationship Specialty Start Date End Date Elsewhere, Pcp PCP - General 08/30/21
== END 2023-11-25 14:34 | disposition home or self-care (01) ==
LOC: NFLDREF 14:35
PROVIDERS: PCP Family Medicine; Visit Provider Obstetrics & Gynecology
DX: R10.9 Unspecified abdominal pain (principal)
CPT/HCPCS: 87086

== ENCOUNTER 2023-12-13 14:17 | Outpatient (CLI) | payer MEDICAID, SELFPAY ==
--- OUTSIDE RECORDS SUMMARY | 2023-12-19 06:33 | XMS_ITS | Clinical Summary ---
Author Organization [employer] [facility] s & [facility] Affiliates Address [place], [place] [address] Care Team Providers Care Mask Inspector Name Role Phone Sourav Mehta Primary Care [...] Type Department Care Team Description 10/12/2023 Telephone [facility] [address] [place] [address] Sourav Mehta Questions from Last 3 Months [...] Brother 1 Eran Thyroid Disease Brother 1 [place] Good Health Brother 2 Desai Good Health [...] disease Relation Name Status Comments Brother 1 [place] Alive Brother 2 Desai Alive Father Maternal [...] Comments Blood Pressure 118/72 06/30/2022 2:37 PM FIRST BREAKER FEEDER Pulse 83 06/30/2022 2:37 PM FIRST BREAKER FEEDER Temperature 36.9 ??C (98.4 ??F) 12/25/2021 4:00 PM CD T Respiratory Rate 16 12/25/2021 4:00 PM CDT Oxygen Saturation 98% 12/25/2021 4:00 PM CDT Inhaled Oxygen Concentration - - Weight 52.2 kg (115 lb) 06/30/2022 2:37 PM FIRST BREAKER FEEDER Height 162.6 cm (5' 4) 12/25/2021 4:00 [...] Procedure Name Priority Date/Time Associated Diagnosis Comments INSTRUMENT MAINTENANCE SUPERVISOR THIN PREP PAP SCREEN IMAGED Routine 03/24/2023 12:00 PM FIRST BREAKER FEEDER from Last 3 Months or Most Recently Relevant to Health Maintenance Results * INSTRUMENT MAINTENANCE SUPERVISOR THIN PREP PAP SCREEN IMAGED (03/24/2023 12:00 PM FIRST BREAKER FEEDER) Case Report Gynecologic Cytology Report ? Case: [id number] ? Authorizing Provider: ??Harmony Colon ?Collected: ? 03/24/2023 1200 ? Lennie, ? Ordering Location: ? [facility] ?Received: ?03/28/2023 1655 ? First Screen: ?Nino Dimas ? Specimen: ?INSTRUMENT MAINTENANCE SUPERVISOR ThinPrep Vial Screening, Cervical ? 04/07/2023 1:26 PM FIRST BREAKER FEEDER [employer] LABORATORY-C ENTRAL LABORATORY INTERPRETATION/ RESULT NEGATIVE FOR INTRAEPITHELIAL LESION OR MALIGNANCY (NIL) (none) 04/07/2023 1:26 PM FIRST BREAKER FEEDER [facility] ENTRAL LABORATORY IMEN ADEQUACY Satisfactory for evaluation Endocervical component present 04/07/2023 1:26 PM FIRST BREAKER FEEDER [facility] HPV REQUEST HPV not requested 2022 1:26 PM FIRST BREAKER FEEDER [facility] ENTRAL LABORATORY Date of LMP 03/05/2023 04/07/2023 1:26 PM FIRST BREAKER FEEDER [facility] ENTRAL LABORATORY Abnormal Pap or [place] Bx in last 5 years No 04/07/2023 1:26 PM FIRST BREAKER FEEDER [facility] ENTRAL LABORATORY Menstrual Status Irregular Periods 04/07/2023 1:26 PM FIRST BREAKER FEEDER [facility] ENTRAL LABORATORY [place] Bx Done Today No 04/07/2023 1:26 PM FIRST BREAKER FEEDER [facility] ENTRAL LABORATORY Additional Information 04/07/2023 1:26 PM FIRST BREAKER FEEDER [facility] ENTRAL LABORATORY Comment: Interpreted at [facility] - [address] [place] [id number] Automated Review Successful 04/07/2023 1:26 PM FIRST BREAKER FEEDER [facility] LAB[facility] Comment:Specimen processed s uccessfully by automated fire extinguisher sprinkler inspector device, ThinPrep Imaging System, [employer] Note The pap test is a screening technique, not a diagnostic procedure. It is used primarily to screen for squamous cancers and precursor lesions. Published studies have shown that it is subject to both false negative and false positive results. The pap test should not be used as the sole means to diagnose or exclude pre-malignant and malignant lesions. 04/07/2023 1:26 PM FIRST BREAKER FEEDER [facility] LABORATORY Other (Cervical) 03/24/2023 12:00 PM FIRST BREAKER FEEDER 03/28/2023 4:55 PM FIRST BREAKER FEEDER Harmony Colon MD PATHOLOGY/ CYTOLOGY [facility] [address] [place] [address], [place] from Last 3 Months or Most Recently Relevant to Health Maintenance Care Teams Mask Inspector Relationship Specialty Start Date End Date Sourav Mehta PCP - General 02/02/20
--- OUTSIDE RECORDS SUMMARY | 2023-12-19 06:33 | XMS_ITS ---
Author Organization [facility] Address [address] [place] [address] Care Team Providers Care Motor Vehicle Light Assembler Name Role Phone Unavailable Unavailable Unavailable Surgery Details Not on file Complications Check Surgery Details section. Procedure Estimated Blood Loss Check Surgery Details section. Procedure Findings Check Surgery Details section. Procedure Specimens Taken Check Surgery Details section.
--- OUTSIDE RECORDS SUMMARY | 2023-12-19 06:33 | XMS_ITS | Encounter Summary ---
Author Organization [facility] Address [address] [place] [address] Care Team Providers Care Assembler Tester Name Role Phone Elsewhere, Pcp Primary Care Provider Unavailabl e Encounter Details Date Type Department Care Team (Late st Contact Info) Description 12/06/2023 6:30 PM CDT Office Visit Urgent Care, [facility], in [place], [place] [address] [place] [address] Ana Laura Block, PDuc-Amena., P.A. [address] [place] [phone] Procedure And Treatment Not Carried Out Due To Patient Leaving Prior To Being Seen By Health Care Provider (Primary Dx) Discharge Disposition: Home or Self Care Social History Tobacco Use Types Packs/Day Years Used Date Smoking Tobacco: Never Passive Smoke Exposure: Never Smokeless Tobacco: Never Alcohol Use Standard Drinks/Week Comments No 0 (1 standard drink = 0.6 oz pur e alcohol) [facility] Utilities Answer Date Recorded In the past 12 months has [employer], gas, oil, or water [employer] threatened to shut off services in your [...] often do you attend chur ch or baptist services? Never 07/14/2022 Do you belong to any clubs o r organizations such as anabaptism groups, unions, fraternal or athletic groups, or [...] medical care, and heating? Somewhat hard 07/14/2022 [facility] [place] of Occupat ional Health - Occupational Stress [...] Primary documented in this encounter Care Teams Assembler Tester Relationship Specialty Start Date End Date Elsewhere, Pcp PCP - General 08/30/21 documented as of this encounter
--- OUTSIDE RECORDS SUMMARY | 2023-12-19 06:33 | XMS_ITS | Referral Summary ---
Author Organization [facility] Address [address] [place] [address] Care Team Providers Care District Court Judge Name Role Phone Elsewhere, Pcp Primary Care Provider Unavailabl e Source Comments Patient records contain information from all sites at [facility]. For routine questions regarding patient records, call [phone] during business hours, M-F 8:00 AM - 5:00 PM Central Time. Record requests for emergency care only can be directed to [phone] at any time.[facility] Encounters Date Type Department Care Team Description 12/06/2023 6:50 PM CDT - 12/06/2023 7:30 PM CDT Emergency [facility] [address] [place] [phone] Benny Cuevas M.D. Migraine Headache (Primary Dx); 27 Weeks Gestation (HCC) Discharge Disposition: Home or Self Care 12/06/2023 6:30 PM CDT Office Visit Urgent Care, [facility], in [place], [place] [address] [place] [phone] Ana Laura Block P.A.-Amena., P.A. Procedure And Treatment Not Carried Out Due [...] Dispensed Refills Start Date End Date Status vsfdkir-Bf-ckwd-FA (VINATE ONE) 60 mg iron-1 mg per [...] 11 07/14/2022 4 Discontinue d(Therapy completed) rizatriptan CAREER SERVICES ASSISTANT (MAXALT-CAREER SERVICES ASSISTANT) 10 mg disintegrating tablet TAKE 1 TABLET [...] 0.6 oz pur e alcohol) [facility] Utilities Answer Date Recorded In the past 12 months has th e [employer], gas, oil, or water [employer] threatened to shut off services in your [...] often do you attend chur ch or oriental orthodox services? Never 07/14/2022 Do you belong to any clubs o r organizations such as faith groups, unions, fraternal or athletic groups, or [...] medical care, and heating? Somewhat hard 07/14/2022 [place] of Occupat ional Health - Occupational Stress [...] your living situation today? I have a [facility] place to live 08/17/2023 Education [...] of Treatment Not on file Care Teams District Court Judge Relationship Specialty Start Date End Date Elsewhere, Pcp PCP - General 08/30/21
--- OUTSIDE RECORDS SUMMARY | 2023-12-19 06:33 | XMS_ITS | Encounter Summary ---
Author Organization [facility] Address [address] [place] [address] Care Team Providers Care Rotoformer Backtender Name Role Phone Elsewhere, Pcp Primary Care [...] CDT - 12/06/2023 7:30 PM CDT Emergency [facility] [address] [place] [phone] Benny Cuevas M.D. [address] [place] [address] Migraine Headache (Primary Dx); 27 Weeks Gestation (HCC) Discharge Disposition: Home or Self Care Social History Tobacco Use Types Packs/Day Years Used Date Smoking Tobacco: Never Passive Smoke Exposure: Never Smokeless Tobacco: Never Alcohol Use Standard Drinks/Week Comments No 0 (1 standard drink = 0.6 oz pur e alcohol) [facility] Utilities Answer Date Recorded In the [...] How often do you attend chur or baptism services? Never 07/14/2022 Do you belong to any clubs o r organizations such as restorationism groups, unions, fraternal or athletic groups, or [...] heating? Somewhat hard 07/14/2022 [facility] [place] of Occupat ional Health - Occupational Stress [...] your living situation today? I have a [facility] place to live 08/17/2023 Education Answer [...] you are . Follow up with your pattern developer if your headache isn't improving by tomorrow. * Attachments The following attachments cannot be sent through Care Everywhere. * Migraine Headache (Macedonian) documented in this encounter Medications at Time of Discharge Medication Sig Dispensed Refills Start Date End Date docosahexaenoic acid 200 mg capsule Take by mouth. 07/27/2023 ferrous sulfate (IRON ORAL) Take by mouth. ondansetron ODT (ZOFRAN-ODT) 4 mg disintegrating tablet DISSOLVE ONE TABLET BY MOUTH EVERY 8 HOURS NEEDED FOR NAUSEA AND VOMITING 07/27/2023 terfojh-Mh-aiuk-FA (VINATE ONE) 60 mg iron-1 mg per [...] 1. Migraine Headache 2. 27 Weeks Gestation ([facility]) ED Disposition Discharge ED Prescriptions Medication Sig Dispense Start Date End Date Auth. Provider promethazine (Phenergan) 25 mg tablet Take 1 tablet (25 mg total) by mouth every 6 (six) hours as needed for nausea or vomiting (Headache). 15 tablet 12/06/2023 -- Benny Cuevas M.D. Notes are completed with voice recognition dictation software. Errors are generally corrected in real-time. Please message me via [employer] In Basket if you note any areas [...] R.N.) documented in this encounter Care Teams Rotoformer Backtender Relationship Specialty Start Date End Date Elsewhere, Pcp PCP - General 08/30/21 documented as of this encounter
--- OUTSIDE RECORDS SUMMARY | 2023-12-19 06:33 | XMS_ITS | Clinical Summary ---
Author Organization [facility] Address [address] [place] [address] Care Team Providers Care Workplace Rehabilitation Officer Name Role Phone Elsewhere, Pcp Primary Care Provider Unavailabl e Source Comments Patient records contain information from all sites at [facility]. For routine questions regarding patient records, call [phone] during business hours, M-F 8:00 AM - 5:00 PM Central Time. Record requests for emergency care only can be directed to [phone] at any time.[facility] Allergies Active Allergy Reactions Criticality Noted Date Comments Ondansetron GI intolerance 06/08/2022 ODT and liquid forms only, cause n/v. Tolerates IV and oral pill formulations. Medications Medication Sig Dispensed Refills Start Date End Date Status rslrmeu-Ko-phtj-FA (VINATE ONE) 60 mg iron-1 mg per [...] 11 07/14/2022 4 Discontinue d(Therapy completed) rizatriptan BIOINFORMATICS ASSISTANT (MAXALT-BIOINFORMATICS ASSISTANT) 10 mg disintegrating tablet TAKE 1 [...] CDT - 12/06/2023 7:30 PM CDT Emergency [facility] [address] [place] [phone] Benny Cuevas M.D. Migraine Headache (Primary Dx); 27 Weeks Gestation (HCC) Discharge Disposition: Home or Self Care 12/06/2023 6:30 PM CDT Office Visit Urgent Care, [facility], in [place], [place] [address] [place] [phone] Ana Laura Block P.A.-C., P.A. Procedure And Treatment Not Carried Out [...] 0.6 oz pur e alcohol) [facility] Utilities Answer Date Recorded In the past 12 months has th e [employer], gas, oil, or water [employer] threatened to shut off services in your [...] often do you attend chur ch or islam services? Never 07/14/2022 Do you belong to [...] medical care, and heating? Somewhat hard 07/14/2022 [place] of Occupat ional Health - Occupational Stress [...] your living situation today? I have a [facility] place to live 08/17/2023 Education Answer Date [...] HPV Vaccines Completed 02/20/2019, 12/25/2012 Care Teams Workplace Rehabilitation Officer Relationship Specialty Start Date End Date Elsewhere, Pcp PCP - General 08/30/21
== END 2023-12-13 14:18 | disposition home or self-care (01) ==
LOC: NFLDREF 12-19 06:30
PROVIDERS: PCP Family Medicine; Referring Provider Family Medicine; Visit Provider Obstetrics & Gynecology
DX: Z34.93 Encounter for supervision of normal pregnancy, unspecified, third trimester (principal); Z3A.28 28 weeks gestation of pregnancy
CPT/HCPCS: 86592

== ENCOUNTER 2023-12-14 08:13 | Outpatient (CLI) | payer MEDICAID, SELFPAY ==
--- OUTSIDE RECORDS SUMMARY | 2023-12-14 10:53 | XMS_ITS | Clinical Summary ---
Author Organization [facility] Address [address] [place] [address] Care Team Providers Care Security Researcher Name Role Phone Elsewhere, Pcp Primary Care Provider Unavailabl e Source Comments Patient records contain information from all sites at [facility]. For routine questions regarding patient records, call [phone] during business hours, M-F 8:00 AM - 5:00 PM Central Time. Record requests for emergency care only can be directed to [phone] at any time.[facility] Allergies Active Allergy Reactions Criticality Noted Date Comments Ondansetron GI intolerance 06/08/2022 ODT and liquid forms only, cause n/v. Tolerates IV and oral pill formulations. Medications Medication Sig Dispensed Refills Start Date End Date Status qgxesds-Df-ggnx-FA (VINATE ONE) 60 mg iron-1 mg per [...] 4 TABLETS PER 24 HOURS 08/02/2023 Active docosahexaenoic acid 200 mg capsule Take by mouth. 07/27/2023 Active promethazine (Phenergan) 25 mg tablet Take 1 tablet (25 mg total) by mouth every 6 (six) hours as needed for nausea or vomiting (Headache). 15 tablet 12/06/2023 Active omeprazole (PriLOSEC) [address] capsule Take 1 capsule (40 mg total) by mouth every morning before breakfast. 30 capsule 2 06/07/2022 4 Discontinue d(Therapy completed) rizatriptan (MAXALT) 10 mg tablet Take 10 mg by mouth every 2 (two) hours as needed. 06/30/2022 4 Discontinue d(Therapy completed) propranoloL (INDERAL LA) 60 mg 24 hr capsule Take 1 capsule (60 mg total) by mouth daily. 30 capsule 11 07/14/2022 4 Discontinue d(Therapy completed) rizatriptan MEDICAL TRANSCRIBER (MAXALT-MEDICAL TRANSCRIBER) 10 mg disintegrating tablet TAKE 1 TABLET BY MOUTH AT ONSET OF HEADACHE , MAY REPEAT AFTER 2 HOURS MAX2/DAY 08/26/2022 4 Discontinue d(Therapy completed) pantoprazole (PROTONIX) 20 mg EC tablet Take 20 mg by mouth every morning before breakfast. 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 Migraine Headache (Primary Dx); 27 Weeks Gestation (HCC) Discharge Disposition: Home or Self Care 12/06/2023 6:30 PM CDT Office Visit Urgent Care, [facility], in [place], [place] [address] [place] [phone] Ana Laura Block P.A.-C. Procedure And Treatment Not Carried Out Due To Patient Leaving Prior To Being Seen By Health Care Provider (Primary Dx) Discharge Disposition: Home or Self Care from Last 3 Months Immunizations Name Administration Dates Next Due 4vHPV (discontinued) 12/25/2012 9vHPV 02/20/2019 DTaP (Infanrix, [employer]edia) 09/08/2004,,02/22/2001, 001,2000 HepA Pediatric/Adolescent 11/17/2009,12/18/2008 HepB Pediatric/Adolescent 11/22/2001,2000, 2000 Hib (PRP-OMP) (PedvaxHIB) 11/22/2001,2000, 2000 Hib-HepB 11/22/2001,2000 IPV 09/08/2004, 2,2000, 001 Influenza TIV (IM) 03/15/2002 MCV4 (Menveo) 02/20/2019 MMR 02/03/2020,09/08/2004,11/22/2001 PCV7 (discontinued) 11/22/2001,2000,2000 Tdap 11/29/2019,12/25/2012 SYARA 12/18/2008,10/03/2002 influenza vaccine quad (FLUZONE/FLUARIX) (6 months and older)(PF) 02/19/2019,03/15/2002 Social History Tobacco Use Types Packs/Day Years Used Date Smoking Tobacco: Never Passive Smoke Exposure: Never Smokeless Tobacco: Never Tobacco Cessation:Counseling Given: Not Answered Alcohol Use Standard Drinks/Week Comments No 0 (1 standard drink = 0.6 oz pur e alcohol) [facility] Utilities Answer Date Recorded In the past 12 months has th e electric, gas, oil, or water [employer] threatened to shut off services in your [...] often do you attend chur ch or anglican services? Never 07/14/2022 Do you belong to any clubs o r organizations such as religion groups, unions, fraternal or athletic groups, or [...] medical care, and heating? Somewhat hard 07/14/2022 [facility] [place] of Occupat ional Health - Occupational Stress [...] living? No 08/17/2023 Nutrition Answer Date Recorded On average, how many serving s of [...] your living situation today? I have a [facility] place to live 08/17/2023 Education Answer [...] Sign Reading Time Taken Comments Blood Pressure 119/77 12/06/2023 7:14 PM CDT Pulse 77 12/06/2023 7:14 PM CDT Temperature 36.9 ??C (98.4 ??F) 12/06/2023 6:54 PM CD T Respiratory Rate 16 12/06/2023 6:54 PM CDT Oxygen Saturation 97% 12/06/2023 7:14 PM CDT Inhaled Oxygen Concentration - - Weight 58.2 kg (128 lb 6.4 oz) 12/06/2023 6:55 P M CDT Height 162.6 cm (5' 4.02) 2023 8:54 AM CD T Body Mass Index 22.03 2023 8:54 AM CDT Plan of Treatment Health Maintenance Due Date Last Done Comments Chlamydia and Gonorrhea Screening 2000 HIV Screening 2000 Hepatitis C Screening 2000 COVID-19 Vaccine ( season) 2023 Depression Screening (Annual PHQ-2) 05/09/2023 RSV vaccine - (32-36 weeks) or 60+ years (1 - Risk 1-dose series) 01/10/2024 Influenza Vaccine (#1) 2024 9, 03/15/2002, 03/15/2002 Cervical Cancer Screening 03/24/2026 03/24/2023 DTaP,Tdap,and Td Vaccines (8 - Td or Tdap) 11/28/2029 11/29/2019, 12/25/2012, 09/08/2004, Additional history exists Hepatitis B Vaccines Completed 11/22/2001, 11/22/2001, 2000, Additional history exists Pneumococcal vaccine (0-64 years) Aged Out 11/22/2001, 2000, 2000 No longer eligible based on patient's age to complete this topic HPV Vaccines Completed 02/20/2019, 12/25/2012 Care Teams Security Researcher Relationship Specialty Start Date End Date Elsewhere, Pcp PCP - General 08/30/21
--- OUTSIDE RECORDS SUMMARY | 2023-12-14 10:53 | XMS_ITS | Referral Summary ---
Author Organization [facility] Address [address] [place] [address] Care Team Providers Care Bag Printer Name Role Phone Elsewhere, Pcp Primary Care Provider Unavailabl e Source Comments Patient records contain information from all sites at [facility]. For routine questions regarding patient records, call [phone] during business hours, M-F 8:00 AM - 5:00 PM Central Time. Record requests for emergency care only can be directed to [phone] at any time.[facility] Encounters Date Type Department Care Team Description 12/06/2023 6:50 PM CDT - 12/06/2023 7:30 PM CDT Emergency [facility] [address] [place] [phone] Benny Cuevas M.D. Migraine Headache (Primary Dx); 27 Weeks Gestation (HCC) Discharge Disposition: Home or Self Care 12/06/2023 6:30 PM CDT Office Visit Urgent Care, [facility], in [place], [place] [address] [place] [phone] Ana Laura Block P.A.-C. Procedure And Treatment [...] Dispensed Refills Start Date End Date Status mtueiug-Ms-dtnv-FA (VINATE ONE) 60 mg iron-1 mg per [...] 11 07/14/2022 4 Discontinue d(Therapy completed) rizatriptan MASCARA MOLDER (MAXALT-MASCARA MOLDER) 10 mg disintegrating tablet TAKE 1 TABLET [...] MMR 02/03/2020,09/08/2004,11/22/2001 PCV7 (discontinued) 11/22/2001,2000,2000 Tdap 11/29/2019,12/25/2012 SAYRA 12/18/2008,10/03/2002 influenza vaccine quad (FLUZONE/FLUARIX) (6 months and older)(PF) 02/19/2019,03/15/2002 Social History Tobacco Use Types Packs/Day Years Used Date Smoking Tobacco: Never Passive Smoke Exposure: Never Smokeless Tobacco: Never Tobacco Cessation:Counseling Given: Not Answered Alcohol Use Standard Drinks/Week Comments No 0 (1 standard drink = 0.6 oz pur e alcohol) [facility] Utilities Answer Date Recorded In the past 12 months has th e electric, gas, oil, or water [employer] threatened to shut off services in your [...] often do you attend chur ch or latter day services? Never 07/14/2022 Do you belong to any clubs o r organizations such as worship groups, unions, fraternal or athletic groups, or [...] medical care, and heating? Somewhat hard 07/14/2022 [facility] [place] of Occupat ional Health - Occupational Stress [...] your living situation today? I have a [facility] place to live 08/17/2023 Education Answer [...] of Treatment Not on file Care Teams Bag Printer Relationship Specialty Start Date End Date Elsewhere, Pcp PCP - General 08/30/21
--- OUTSIDE RECORDS SUMMARY | 2023-12-14 10:53 | XMS_ITS ---
Author Organization [facility] Address [address] [place] [address] Care Team Providers Care Enterprise Business Architect Name Role Phone Unavailable Unavailable Unavailable Surgery Details Not on file Complications Check Surgery Details section. Procedure Estimated Blood Loss Check Surgery Details section. Procedure Findings Check Surgery Details section. Procedure Specimens Taken Check Surgery Details section.
--- OUTSIDE RECORDS SUMMARY | 2023-12-14 10:53 | XMS_ITS | Encounter Summary ---
Author Organization [facility] Address [address] [place] [address] Care Team Providers Care Hairspring I Inspector Name Role Phone Elsewhere, Pcp Primary Care Provider Unavailabl e Reason for Visit * Reason Comments Migraine Pt reports migraine that started around 7 am this morning. Took 1,000 mg tylenol with no relief. States she has taken Sumatriptan in the past but this did not work well. Encounter Details Date Type Department Care Team (Late st Contact Info) Description 12/06/2023 6:50 PM CDT - 12/06/2023 7:30 PM CDT Emergency [facility] [address] [place] [phone] Benny Cuevas M.D. [address] [place] [phone] Migraine Headache (Primary Dx); 27 Weeks Gestation (HCC) Discharge Disposition: Home or Self Care Social History Tobacco Use Types Packs/Day Years Used Date Smoking Tobacco: Never Passive Smoke Exposure: Never Smokeless Tobacco: Never Alcohol Use Standard Drinks/Week Comments No 0 (1 standard drink = 0.6 oz pur e alcohol) [facility] Utilities Answer Date Recorded In [...] How often do you attend chur or buddhism services? Never 07/14/2022 Do you belong to [...] medical care, and heating? Somewhat hard 07/14/2022 [facility] [place] of Occupat ional Health - Occupational Stress [...] your living situation today? I have a [facility] place to live 08/17/2023 Education Answer [...] oz) 12/06/2023 6:55 P M CDT Height - - Body Mass Index 22.03 2023 8:54 AM CDT documented in this encounter Discharge Instructions * Discharge Instructions* Benny Cuevas M.D. - 12/06/2023 7:04 PM CDT Continue to take acetaminophen 1000 mg every 6 hours as needed for pain. Avoid ibuprofen while you are . Follow up with your lab tech if your headache isn't improving by tomorrow. * Attachments The following attachments cannot be sent through Care Everywhere. * Migraine Headache (Pashto) documented in this encounter Medications at Time of Discharge Medication Sig Dispensed Refills Start Date End Date docosahexaenoic acid 200 mg capsule Take by mouth. 07/27/2023 ferrous sulfate (IRON ORAL) Take by mouth. ondansetron ODT (ZOFRAN-ODT) 4 mg disintegrating tablet DISSOLVE ONE TABLET BY MOUTH EVERY 8 HOURS NEEDED FOR NAUSEA AND VOMITING 07/27/2023 wkqfczx-Np-yajh-FA (VINATE ONE) 60 mg iron-1 mg per tablet Take 1 tablet by mouth daily. promethazine (Phenergan) 25 mg tablet Take 1 tablet (25 mg total) by mouth every 6 (six) hours as needed for nausea or vomiting (Headache). 15 tablet 12/06/2023 SUMAtriptan (IMITREX) 50 mg tablet TAKE ONE TABLET BY MOUTH ONCE DAILY AT ONSET OF HEADACHE, MAY REPEAT WITH 1 TABLET AFTER 2 HOURS NEEDED -MAX OF 4 TABLETS PER 24 HOURS 08/02/2023 documented as of this encounter ED Notes * Benny Cuevas M.D. - 12/06/2023 7:30 PM CDT CHIEF COMPLAINT/REASON FOR VISIT (RN note) Migraine (Pt reports migraine that started around 7 am this morning. Took 1,000 mg tylenol with no relief. States she has taken Sumatriptan in the past but this did not work well. ) HISTORY OF PRESENT ILLNESS Deanna Garcia is a 23 y.o. female who presents to the ED for evaluation of migraine headache that is behind her eye. She states that this feels the same as her previous migraines but not improving with sumatriptan. She also took Tylenol but no ibuprofen since she is now 27 weeks . She denies any other problems with the . No dysuria. Past medical history: Reviewed in the EMR. [...] Vitamin D Anemia Complicating Unspecified Trimester (HCC) Social history: Reviewed in the EMR. Agree with nursing documentation. Pertinent social history noted per HPI. Social History Tobacco Use Smoking status: Never Passive exposure: Never Smokeless tobacco: Never Vaping Use Vaping status: never used Substance Use Topics Alcohol use: [...] HPI, otherwise negative. PHYSICAL EXAMINATION Initial Vitals Temperature 12/06/23 1854 36.9 ??C Pulse Rate 12/06/23 185 76 Heart Rate -- Resp Rate 12/06/231853 16 Blood Pressure 12/06/231853 122/74 SpO2 12/06/231853 98 % Pain Score 12/06/231856 8 General: Awake, alert, oriented x3. No apparent distress but she is wearing sunglasses in a dark room. Head: Normocephalic, atraumatic. Eyes: Normal sclerae and conjunctivae, extraocular movements intact. Pupils equal, round, reactive to light. ENT: Oropharynx is clear, moist mucus membranes. Neck: Supple, full range of motion, trachea midline. No meningismus. Heart: Normal rate. Lungs: No respiratory distress. Abd: Soft, nontender, nondistended. Gravid. Back: Normal to inspection, nontender, no costovertebral angle tenderness. Ext: Warm, well-perfused. Skin: Warm, dry, normal color. No rashes. Neuro: Awake, alert, GCS 15, cranial nerves II-XII grossly intact, normal strength/sensation x4 without focal deficits. Psych: Normal affect, concentration, and judgment. MEDICAL DECISION MAKING / ED COURSE: 23-year-old, 27 weeks , now with a migraine headache. She states that this is typical migraine headache. No neurologic complaints otherwise. She does not have elevated blood pressure and no other signs of preeclampsia. HELLP syndrome also considered but no indications for laboratory workup at this time. This also includes urinalysis that was deferred to her routine obstetric care. We did discuss the risks and benefits of medications such as steroids and Phenergan at gestational age of 27 weeks. She understands and would like to proceed with analgesia to see if we can break herheadache. These were provided here in the emergency department as well as acetaminophen. She will follow up with primary care or Obstetrics as needed. -- Nursing documentation and prior records reviewed in the medical record. -- External documents reviewed. Medications dexAMETHasone injection 10 mg (Decadron) (10 mg intramuscular Given 12/06/231904) promethazine injection 25 mg (Phenergan) (25 mg intramuscular Given 12/06/231904) acetaminophen tablet 1,000 mg (TylenoL) (1,000 mg oral Given 12/06/231904) FINAL DIAGNOSIS: 1. Migraine Headache 2. 27 Weeks Gestation ([facility]) ED Disposition Discharge ED Prescriptions Medication Sig Dispense Start Date End Date Auth. Provider promethazine (Phenergan) 25 mg tablet Take 1 tablet (25 mg total) by mouth every 6 (six) hours as needed for nausea or vomiting (Headache). 15 tablet 12/06/2023 -- Benny Cuevas M.D. Notes are completed with voice recognition dictation software. Errors are generally corrected in real-time. Please message me via [employer] In Basket if you note any areas requiring clarification. Benny Cuevas M.D. 12/08/23 0121 documented in this encounter Plan of Treatment Not on file documented as of this encounter Visit Diagnoses Diagnosis Migraine Headache- Primary 27 Weeks Gestation (HCC) documented in this encounter Administered Medications Inactive Administered Medications - up to 3 most recent administrations Medication Order MAR Action Action Date Dose Rate Site acetaminophen tablet 1,000 mg (TylenoL) 1,000 mg, oral, Once, On e 12/06/23 at 1902, For 1 dose Given 12/06/2023 7:05 PM CDT 1,000 mg dexAMETHasone injection 10 mg (Decadron) 10 mg, intramuscular, Once, On 12/06/23 at 1902, For 1 dose Given 12/06/2023 7:05 PM CDT 10 mg Right Deltoid promethazine injection 25 mg (Phenergan) 25 mg, intramuscular, Once, On 12/06/23 at 1902, For 1 dose Given 12/06/2023 7:05 PM CDT 25 mg Right Deltoid documented in this encounter Active and Recently Administered Medications Times are shown in CDT. Scheduled Medication Order 12/04/2023 12/05/2023 12/06/2023 acetaminophen tablet 1,000 mg (TylenoL) (COMPLETED) 1,000 mg, oral, Once, On e 12/06/23 at 1902, For 1 dose 1904 (Given - Provid er: Evette Benavidez R.N.) dexAMETHasone injection 10 mg (Decadron) (COMPLETED) 10 mg, intramuscular, Once, On Tue12/06/23 at 1902, For 1 dose 1904 (Given - Provid er: Evette Benavidez R.N.) promethazine injection 25 mg (Phenergan) (COMPLETED) 25 mg, intramuscular, Once, On 12/06/23 at 1902, For 1 dose 1904 (Given - Provid er: Evette Benavidez R.N.) documented in this encounter Care Teams Hairspring I Inspector Relationship Specialty Start Date End Date Elsewhere, Pcp PCP - General 08/30/21 documented as of this encounter
--- OUTSIDE RECORDS SUMMARY | 2023-12-14 10:53 | XMS_ITS | Clinical Summary ---
Author Organization [facility] [facility] s & [facility] Affiliates Address [place], [place] [address] Care Team Providers Care Newsroom Intern Name Role Phone Sourav Mehta Primary Care [...] Type Department Care Team Description 10/12/2023 Telephone [facility] [address] [place] [address] Sourav Mehta Questions from Last 3 Months [...] Relation Name Comments Bipolar disorder Brother 1 Harlan Thyroid Disease Brother 1 Harlan Good Health Brother 2 Desai Good Health [...] Comments Blood Pressure 118/72 06/30/2022 2:37 PM COUNTER PERSON Pulse 83 06/30/2022 2:37 PM COUNTER PERSON Temperature 36.9 ??C (98.4 ??F) 12/25/2021 4:00 PM CD T Respiratory Rate 16 12/25/2021 4:00 PM CDT Oxygen Saturation 98% 12/25/2021 4:00 PM CDT Inhaled Oxygen Concentration - - Weight 52.2 kg (115 lb) 06/30/2022 2:37 PM COUNTER PERSON Height 162.6 cm (5' 4) 12/25/2021 4:00 [...] Procedure Name Priority Date/Time Associated Diagnosis Comments VP CORPORATE PARTNERSHIPS THIN PREP PAP SCREEN IMAGED Routine 03/24/2023 12:00 PM COUNTER PERSON from Last 3 Months or Most Recently Relevant to Health Maintenance Results * VP CORPORATE PARTNERSHIPS THIN PREP PAP SCREEN IMAGED (03/24/2023 12:00 PM COUNTER PERSON) Case Report Gynecologic Cytology Report ? Case: [id number] ? Authorizing Provider: ??Harmony Colon ?Collected: ? 03/24/2023 1200 ? Lennie, ? Ordering Location: ? [facility] ?Received: ?03/28/2023 1655 ? First Screen: ?Nino Dimas ? Specimen: ?VP CORPORATE [employer]NERSHIPS ThinPrep Vial Screening, Cervical ? 04/07/2023 1:26 PM COUNTER PERSON [employer] LABORAT[facility]-C ENTRAL LABORATORY INTERPRETATION/ RESULT NEGATIVE FOR INTRAEPITHELIAL LESION OR MALIGNANCY (NIL) (none) 04/07/2023 1:26 PM COUNTER PERSON [facility] [employer] [facility] ENTRAL LABORATORY IMEN ADEQUACY Satisfactory for evaluation Endocervical component present 04/07/2023 1:26 PM COUNTER PERSON [facility] HPV REQUEST HPV not requested 2022 1:26 PM COUNTER PERSON [facility] ENTRAL LABORATORY Date of LMP 03/05/2023 04/07/2023 1:26 PM COUNTER PERSON [facility] ENTRAL LABORATORY Abnormal Pap or [place] Bx in last 5 years No 04/07/2023 1:26 PM COUNTER PERSON [facility] [employer] ENTRAL LABORATORY Menstrual Status Irregular Periods 04/07/2023 1:26 PM COUNTER PERSON [facility] ENTRAL LABORATORY [place] Bx Done Today No 04/07/2023 1:26 PM COUNTER PERSON [facility] ENTRAL LABORATORY Additional Information 04/07/2023 1:26 PM COUNTER PERSON [facility] [employer] [facility] ENTRAL LABORATORY Comment: Interpreted at [facility] - [address] [place] [id number] Automated Review Successful 04/07/2023 1:26 PM COUNTER PERSON [facility] [employer] [facility] ENTRAL LABORATORY Comment:Specimen processed s uccessfully by automated measuring machine operator device, ThinPrep Imaging System, [employer] Note The pap test is a screening technique, not a diagnostic procedure. It is used primarily to screen for squamous cancers and precursor lesions. Published studies have shown that it is subject to both false negative and false positive results. The pap test should not be used as the sole means to diagnose or exclude pre-malignant and malignant lesions. 04/07/2023 1:26 PM COUNTER PERSON [facility] LABORATORY Other (Cervical) 03/24/2023 12:00 PM COUNTER PERSON 03/28/2023 4:55 PM COUNTER PERSON Harmony Colon MD PATHOLOGY/ CYTOLOGY [facility] [address] [place] [address], [place] from Last 3 Months or Most Recently Relevant to Health Maintenance Care Teams Newsroom Intern Relationship Specialty Start Date End Date Sourav Mehta PCP - General 02/02/20
--- OUTSIDE RECORDS SUMMARY | 2023-12-14 10:53 | XMS_ITS | Encounter Summary ---
Author Organization [facility] Address [address] [place] [address] Care Team Providers Care Forging Operator Name Role Phone Elsewhere, Pcp Primary Care Provider Unavailabl e Encounter Details Date Type Department Care Team (Late st Contact Info) Description 12/06/2023 6:30 PM CDT Office Visit Urgent Care, [facility], in [place], [place] [address] [place] [phone] Ana Laura Block, P.A.-C. [address] [place] [address] Procedure And Treatment Not Carried Out Due To Patient Leaving Prior To Being Seen By Health Care Provider (Primary Dx) Discharge Disposition: Home or Self Care Social History Tobacco Use Types Packs/Day Years Used Date Smoking Tobacco: Never Passive Smoke Exposure: Never Smokeless Tobacco: Never Alcohol Use Standard Drinks/Week Comments No 0 (1 standard drink = 0.6 oz pur e alcohol) [facility] Utilities Answer Date Recorded In the past 12 months has [facility], gas, oil, or water [employer] threatened to shut off services in your [...] 07/14/2022 How often do you attend chur [place] or cheondoism services? Never 07/14/2022 Do you belong to any clubs o r organizations such as sikh groups, unions, fraternal or athletic groups, or [...] medical care, and heating? Somewhat hard 07/14/2022 [facility] [place] of Occupat ional Health - Occupational Stress [...] your living situation today? I have a [facility] place to live 08/17/2023 Education [...] PM CDT documented as of this encounter Progress Notes * Ana Laura Block P.A.-C. - 12/06/2023 6:30 PM CDT Patient left without being seen due to wait. Ana Laura Block P.A.-C. documented in this encounter Plan of Treatment Not on file documented as of this encounter Visit Diagnoses Diagnosis Procedure And Treatment Not Carried Out Due To Patient Leaving Prior To Being Seen By Health Care Provider- Primary documented in this encounter Care Teams Forging Operator Relationship Specialty Start Date End Date Elsewhere, Pcp PCP - General 08/30/21 documented as of this encounter
== END 2023-12-14 08:14 | disposition home or self-care (01) ==
LOC: NFLDREF 10:52
PROVIDERS: PCP Family Medicine; Referring Provider Family Medicine; Visit Provider Obstetrics & Gynecology
DX: Z34.93 Encounter for supervision of normal pregnancy, unspecified, third trimester (principal); Z3A.28 28 weeks gestation of pregnancy
CPT/HCPCS: 82951; 82952

== ENCOUNTER 2024-01-13 09:50 | Outpatient (CLI) | payer MEDICAID, SELFPAY ==
--- OUTSIDE RECORDS SUMMARY | 2024-01-19 02:42 | XMS_ITS | Referral Summary ---
Author Organization [facility] Address [address] [place] [address] Care Team Providers Care Graphic Arts Instructor Name Role Phone Elsewhere, Pcp Primary Care Provider Unavailabl e Source Comments Patient records contain information from all sites at [facility]. For routine questions regarding patient records, call [phone] during business hours, M-F 8:00 AM - 5:00 PM Central Time. Record requests for emergency care only can be directed to [phone] at any time.[facility] Encounters Date Type Department Care Team Description 01/11/2024 5:07 PM CDT - 01/11/2024 6:48 PM CDT Emergency [facility] [address] [place] [phone] Alvino Christianson P.A.-C., P.A. Pharyngitis Acute (Primary Dx) Discharge Disposition: Home or Self Care 01/11/2024 3:15 PM CDT Office Visit Urgent Care, [facility], in [place], [place] [address] [place] [phone] Alvino Christianson P.A.-C., P.A. Discharge Disposition: Home or Self Care 12/06/2023 6:50 PM CDT - 12/06/2023 7:30 PM CDT Emergency [facility] [address] [place] [phone] Benny Cuevas M.D. Migraine Headache (Primary Dx); 27 Weeks Gestation (HCC) Discharge Disposition: Home or Self Care 12/06/2023 6:30 PM CDT Office Visit Urgent Care, [facility], in [place] [address] [place] [address] Ana Laura Block P.A.-C., P.A. Procedure And [...] Dispensed Refills Start Date End Date Status hoqzsuh-Lo-kxmv-FA (VINATE ONE) 60 mg iron-1 mg per [...] or vomiting (Headache). 15 tablet 12/06/2023 Active Active Problems Problem Noted Date Diagnosed [...] e alcohol) [facility] Utilities Answer Date Recorded In the past 12 months has e [employer], gas, oil, or water [employer] threatened to shut off services in your [...] How often do you attend chur or faith services? Never 07/14/2022 Do you belong to any clubs o r organizations such as yazdanism groups, unions, fraternal or athletic groups, or [...] medical care, and heating? Somewhat hard 07/14/2022 [facility] [place] of Occupat ional Health - Occupational Stress [...] your living situation today? I have a [facility] place to live 08/17/2023 Education Answer Date [...] Sign Reading Time Taken Comments Blood Pressure 114/75 01/11/2024 3:12 PM CDT Pulse 84 01/11/2024 3:12 PM CDT Temperature 37.4 ??C (99.3 ??F) 01/11/2024 3:12 PM CD T Respiratory Rate 16 01/11/2024 3:12 PM CDT Oxygen Saturation 97% 01/11/2024 3:12 PM CDT Inhaled Oxygen Concentration - - Weight 60.8 kg (134 lb 0.6 oz) 01/11/2024 5:00 P M CDT Height 162.6 cm (5' 4) 01/11/2024 5:00 PM CDT Body Mass Index 23.01 01/11/2024 5:00 PM CDT Plan of Treatment Not on file Procedures Procedure Name Priority Date/Time Associated Diagnosis Comments GROUP A STREP PCR, THROAT Routine 01/11/2024 3:17 PM CDT Pharyngitis Acute from Last 3 Months Results * Group A Streptococcus PCR, Throat (01/11/2024 3:17 PM CDT) Strep Group A, PCR, POCT Negative Negative 01/11/2024 3:03 PM CDT NPRG Swab (Throat) 01/11/2024 3:1 7 PM CDT 01/11/2024 3:22 PM CDT Alvino Christianson P.A.-C., P.A. LAB M ICROBIOLOGY - GENERAL ORDERABLES [facility] [address] [place] [address], [facility] NPRG [facility] [address] [place] [address] from Last 3 Months Care Teams Graphic Arts Instructor Relationship Specialty Start Date End Date Elsewhere, Pcp PCP - General 08/30/21
--- OUTSIDE RECORDS SUMMARY | 2024-01-19 02:42 | XMS_ITS ---
Author Organization [facility] Address [address] [place] [address] Care Team Providers Care Supervisor Sound Technician Name Role Phone Unavailable Unavailable Unavailable Surgery Details Not on file Complications Check Surgery Details section. Procedure Estimated Blood Loss Check Surgery Details section. Procedure Findings Check Surgery Details section. Procedure Specimens Taken Check Surgery Details section.
--- OUTSIDE RECORDS SUMMARY | 2024-01-19 02:42 | XMS_ITS | Encounter Summary ---
Author Organization [facility] Address [address] [place] [address] Care Team Providers Care Compliance Lead Name Role Phone Elsewhere, Pcp Primary Care Provider Unavailabl e Encounter Details Date Type Department Care Team (Late st Contact Info) Description 12/06/2023 6:30 PM CDT Office Visit Urgent Care, [facility], in [place], [place] [address] [place] [phone] Ana Laura Block, PDuc-Amena., P.A. [address] [place] [phone] Procedure And Treatment Not Carried Out Due To Patient Leaving Prior To Being Seen By Health Care Provider (Primary Dx) Discharge Disposition: Home or Self Care Social History Tobacco Use Types Packs/Day Years Used Date Smoking Tobacco: Never Passive Smoke Exposure: Never Smokeless Tobacco: Never Alcohol Use Standard Drinks/Week Comments No 0 (1 standard drink = 0.6 oz pur e alcohol) [facility] Utilities Answer Date Recorded In the past 12 months has [place], gas, oil, or water [employer] threatened to shut off services in your [...] medical care, and heating? Somewhat hard 07/14/2022 [facility] [place] of Occupat ional Health - Occupational Stress [...] your living situation today? I have a [facility] place to live 08/17/2023 Education Answer Date [...] Primary documented in this encounter Care Teams Compliance Lead Relationship Specialty Start Date End Date Elsewhere, Pcp PCP - General 08/30/21 documented as of this encounter
--- OUTSIDE RECORDS SUMMARY | 2024-01-19 02:42 | XMS_ITS | Encounter Summary ---
Author Organization [facility] Address [address] [place] [address] Care Team Providers Care It Security Analyst Name Role Phone Elsewhere, Pcp Primary Care [...] CDT - 12/06/2023 7:30 PM CDT Emergency [facility] [address] [place] [phone] Benny Cuevas M.D. [address] [place] [phone] Migraine Headache (Primary Dx); 27 Weeks Gestation [...] How often do you attend chur or synagogue services? Never 07/14/2022 Do you belong to any clubs o r organizations such as voodoo groups, unions, fraternal or athletic groups, or [...] heating? Somewhat hard 07/14/2022 [facility] [place] of Occupat ional Health - Occupational Stress [...] your living situation today? I have a [facility] place to live 08/17/2023 Education Answer [...] you are . Follow up with your beef farmer if your headache isn't improving by tomorrow. * Attachments The following attachments cannot be sent through Care Everywhere. * Migraine Headache (Upper Sorbian) documented in this encounter Medications at Time of Discharge Medication Sig Dispensed Refills Start Date End Date docosahexaenoic acid 200 mg capsule Take by mouth. 07/27/2023 ferrous sulfate (IRON ORAL) Take by mouth. ondansetron ODT (ZOFRAN-ODT) 4 mg disintegrating tablet DISSOLVE ONE TABLET BY MOUTH EVERY 8 HOURS NEEDED FOR NAUSEA AND VOMITING 07/27/2023 [id number] (VINATE ONE) 60 mg iron-1 mg per [...] Headache 2. 27 Weeks Gestation ([facility]) ED Disposition Discharge ED Prescriptions Medication [...] corrected in real-time. Please message me via Shyp In Basket if you note any areas [...] R.N.) documented in this encounter Care Teams It Security Analyst Relationship Specialty Start Date End Date Elsewhere, Pcp PCP - General 08/30/21 documented as of this encounter
--- OUTSIDE RECORDS SUMMARY | 2024-01-19 02:42 | XMS_ITS | Clinical Summary ---
Author Organization [facility] Address [address] [place] [address] Care Team Providers Care Motor Equipment Sergeant Name Role Phone Elsewhere, Pcp Primary Care Provider Unavailabl e Source Comments Patient records contain information from all sites at [facility]. For routine questions regarding patient records, call [phone] during business hours, M-F 8:00 AM - 5:00 PM Central Time. Record requests for emergency care only can be directed to [phone] at any time.[facility] Allergies Active Allergy Reactions Criticality Noted Date Comments Ondansetron GI intolerance 06/08/2022 ODT and liquid forms only, cause n/v. Tolerates IV and oral pill formulations. Medications Medication Sig Dispensed Refills Start Date End Date Status [id number] (VINATE ONE) 60 mg iron-1 mg per [...] CDT - 01/11/2024 6:48 PM CDT Emergency [facility] [address] [place] [phone] Alvino Christianson P.A.-C., P.A. Pharyngitis Acute (Primary Dx) Discharge Disposition: Home or Self Care 01/11/2024 3:15 PM CDT [facility] [place] [place] [address] [place] [phone] Alvino Christianson P.A.-C., P.A. Discharge Disposition: Home or Self Care 12/06/2023 6:50 PM CDT - 12/06/2023 7:30 PM CDT Emergency [facility] [address] [place] [phone] Benny Cuevas M.D. Migraine Headache (Primary Dx); 27 Weeks Gestation (HCC) Discharge Disposition: Home or Self Care 12/06/2023 6:30 PM CDT Office Visit Urgent Care, [facility], in [address] [phone] Ana Laura Block P.A.-C., P.A. Procedure And [...] drink = 0.6 oz pur e alcohol) [facility] Utilities Answer Date Recorded In the past 12 months has e [employer], gas, oil, or water [employer] threatened to shut off services in your [...] How often do you attend chur or jewish services? Never 07/14/2022 Do you belong to any clubs o r organizations such as christian groups, unions, fraternal or athletic groups, or [...] medical care, and heating? Somewhat hard 07/14/2022 [facility] [place] of Occupat ional Health - Occupational Stress [...] your living situation today? I have a [facility] place to live 08/17/2023 Education Answer [...] 01/11/2024 5:00 PM CDT Plan of Treatment Health Maintenance Due Date Last Done Comments Chlamydia and Gonorrhea Screening 2000 HIV Screening 2000 Hepatitis C Screening 2000 Depression Screening (Annual PHQ-2) 05/09/2023 COVID-19 Vaccine (2022- season) 2024 RSV vaccine - (32-36 weeks) or 60+ years (1 - Risk 1-dose series) 01/10/2024 Influenza Vaccine (#1) 2024 , 03/15/2002, 03/15/2002 Cervical Cancer Screening 03/24/2026 03/24/2023 DTaP,Tdap,and Td Vaccines (9 - Td or Tdap) 12/27/2033 12/28/2023, 11/29/2019, 12/25/2012, Additional history exists Hepatitis B Vaccines Completed 11/22/2001, 11/22/2001, 2000, Additional history exists Pneumococcal vaccine (0-64 years) Aged Out 11/22/2001, 2000, 2000 No longer eligible based on patient's age to complete this topic Varicella Vaccines Completed 12/18/2008, 10/03/2002 HPV Vaccines Completed 02/20/2019, 12/25/2012 Procedures Procedure Name Priority Date/Time Associated Diagnosis Comments GROUP A STREP PCR, THROAT Routine 01/11/2024 3:17 PM CDT Pharyngitis Acute from Last 3 Months Results * Group A Streptococcus PCR, Throat (01/11/2024 3:17 PM CDT) Strep Group A, PCR, POCT Negative Negative 01/11/2024 3:03 PM CDT NPRG Swab (Throat) 01/11/2024 3:1 7 PM CDT 01/11/2024 3:22 PM CDT Alvino Christianson P.A.-C., PDuc LAB M ICROBIOLOGY - GENERAL ORDERABLES [facility] [address] [place] [address], [facility] NPRG [facility] [place] [address] [place] [address] from Last 3 Months Care Teams Motor Equipment Sergeant Relationship Specialty Start Date End Date Elsewhere, Pcp PCP - General 08/30/21
--- OUTSIDE RECORDS SUMMARY | 2024-01-19 02:42 | XMS_ITS | Encounter Summary ---
Author Organization [facility] Address [address] [place] [address] Care Team Providers Care Charge Entry Clerk Name Role Phone Elsewhere, Pcp Primary Care Provider Unavailabl e Encounter Details Date Type Department Care Team (Late st Contact Info) Description 01/11/2024 3:15 PM CDT Office Visit Urgent Care, [facility], in [place], [place] [address] [place] [phone] Alvino Christianson, PDedraADedra-Amena., P.A. [address] [place] [phone] Discharge Disposition: Home or Self Care Social History Tobacco Use Types Packs/Day Years Used Date Smoking Tobacco: Never Passive Smoke Exposure: Never Smokeless Tobacco: Never Alcohol Use Standard Drinks/Week Comments No 0 (1 standard drink = 0.6 oz pur e alcohol) [facility] Utilities Answer Date Recorded In the past 12 months has [employer], gas, oil, or water [employer] threatened to shut off services in your [...] How often do you attend chur or amish services? Never 07/14/2022 Do you belong to [...] medical care, and heating? Somewhat hard 07/14/2022 [facility] of Occupat ional Health - [...] your living situation today? I have a [facility] place to live 08/17/2023 Education [...] on filedocumented in this encounter Care Teams Charge Entry Clerk Relationship Specialty Start Date End Date Elsewhere, Pcp PCP - General 08/30/21 documented as of this encounter
--- OUTSIDE RECORDS SUMMARY | 2024-01-19 02:42 | XMS_ITS | Clinical Summary ---
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 Lactose intolerance 12/29/2010 Other acne 12/31/2009 [...] years) 03/15/2002 Influenza, IIV4 (=>6mos) MDV 02/19/2019 MENINGOCOCCAL VACCINE 2 VIAL 2MO-55YO (MENVEO) 02/20/2019 MMR 09/08/2004,11/22/2001 Pneumococcal conj 7-Valent (Prevnar 7) 2,2000,2000 Tdap 12/25/2012 Varicella Vaccine 12/18/2008,10/03/2002 Family History Medical History Relation Name Comments Bipolar disorder Brother 1 Nehawka Thyroid Disease Brother 1 Eran Good Health [...] Comments Blood Pressure 118/72 06/30/2022 2:37 PM SCRIPT SUPERVISOR Pulse 83 06/30/2022 2:37 PM SCRIPT SUPERVISOR Temperature 36.9 ??C (98.4 ??F) 12/25/2021 4:00 PM CD T Respiratory Rate 16 12/25/2021 4:00 PM CDT Oxygen Saturation 98% 12/25/2021 4:00 PM CDT Inhaled Oxygen Concentration - - Weight 52.2 kg (115 lb) 06/30/2022 2:37 PM SCRIPT SUPERVISOR Height 162.6 cm (5' 4) 12/25/2021 4:00 [...] 12/25/2022 12/25/2012 COVID-19 vaccine series ( season) 2024 Influenza for age 9-49 01/08/2024 9, 03/15/2002 Pap test for age 21-65 03/24/2026 03/24/2023 Pneumococcal series for age 6-64 Aged Out 11/22/2001, 2000, 2000 No longer eligible based on patient's age to complete this topic Tdap Completed 12/25/2012 HPV series for age 9-26 Completed 02/21/20 19, 12/25/2012 Procedures Procedure Name Priority Date/Time Associated Diagnosis Comments FREIGHT CALLER THIN PREP PAP SCREEN IMAGED Routine 03/24/2023 12:00 PM SCRIPT SUPERVISOR from Last 3 Months or Most Recently Relevant to Health Maintenance Results * FREIGHT CALLER THIN PREP PAP SCREEN IMAGED (03/24/2023 12:00 PM SCRIPT SUPERVISOR) Case Report Gynecologic Cytology Report ? Case: [id number] ? Authorizing Provider: ??Harmony Colon ?Collected: ? 03/24/2023 1200 ? MD Lennie ? Ordering Location: ? [facility] ?Received: ?03/28/2023 1655 ? First Screen: ?Nino Dimas ? Specimen: ?FREIGHT CALLER ThinPrep Vial Screening, Cervical ? 04/07/2023 1:26 PM SCRIPT SUPERVISOR [facility] INTERPRETATION/ RESULT NEGATIVE FOR INTRAEPITHELIAL LESION OR MALIGNANCY (NIL) (none) 04/07/2023 1:26 PM SCRIPT SUPERVISOR [facility] IMEN ADEQUACY Satisfactory for evaluation Endocervical component present 04/07/2023 1:26 PM SCRIPT SUPERVISOR [facility] HPV REQUEST HPV not requested 2022 1:26 PM SCRIPT SUPERVISOR [facility] Date of LMP 03/05/2023 04/07/2023 1:26 PM SCRIPT SUPERVISOR [facility] Abnormal Pap or Austin Bx in last 5 years No 04/07/2023 1:26 PM SCRIPT SUPERVISOR [facility] Menstrual Status Irregular Periods 04/07/2023 1:26 PM SCRIPT SUPERVISOR [facility] [place] Bx Done Today No 04/07/2023 1:26 PM SCRIPT SUPERVISOR [facility] Additional Information 04/07/2023 1:26 PM SCRIPT SUPERVISOR [facility] Comment: Interpreted at [facility] - [address] [place] [id number] Automated Review Successful 04/07/2023 1:26 PM SCRIPT SUPERVISOR [facility] Comment:Specimen processed s uccessfully by automated innovation manager device, ThinPrep Imaging System, [employer] Note The pap test is a screening technique, not a diagnostic procedure. It is used primarily to screen for squamous cancers and precursor lesions. Published studies have shown that it is subject to both false negative and false positive results. The pap test should not be used as the sole means to diagnose or exclude pre-malignant and malignant lesions. 04/07/2023 1:26 PM SCRIPT SUPERVISOR [facility] Other (Cervical) 03/24/2023 12:00 PM SCRIPT SUPERVISOR 03/28/2023 4:55 PM SCRIPT SUPERVISOR Harmony Colon MD PATHOLOGY/ CYTOLOGY [facility] [employer]key Pokey [facility] [address] [place] [address], [place] from Last 3 Months or Most Recently Relevant to Health Maintenance Care Teams Passenger Attendant Relationship Specialty Start Date End Date Clinic, [facility] [address] [place] [address] PCP - General 12/19/23
--- OUTSIDE RECORDS SUMMARY | 2024-01-19 02:42 | XMS_ITS | Encounter Summary ---
Author Organization [facility] Address [address] [place] [address] Care Team Providers Care Grape Crusher Name Role Phone Elsewhere, Pcp Primary Care Provider Unavailabl e Reason for Visit * Reason Comments Sore Throat Pt presents w/throat pain onset last night, denies cough and fever. Encounter Details Date Type Department Care Team (Late st Contact Info) Description 01/11/2024 5:07 PM CDT - 01/11/2024 6:48 PM CDT Emergency [facility] [address] [place] [phone] Alvino Christianson, PDedraA.-Amena., P.A. [address] [phone] Pharyngitis Acute (Primary Dx) Discharge Disposition: Home or Self Care Social History Tobacco Use Types Packs/Day Years Used Date Smoking Tobacco: Never Passive Smoke Exposure: Never Smokeless Tobacco: Never Alcohol Use Standard Drinks/Week Comments No 0 (1 standard drink = 0.6 oz pur e alcohol) [facility] Utilities Answer Date Recorded In the [...] any clubs o r organizations such as hoahaoism groups, unions, fraternal or athletic groups, or [...] medical care, and heating? Somewhat hard 07/14/2022 [facility] [place] of Occupat ional Health - Occupational Stress [...] your living situation today? I have a [facility] place to live 08/17/2023 Education Answer Date [...] Mass Index 23.01 01/11/2024 5:00 PM CDT documented in this encounter Medications at Time of Discharge Medication Sig Dispensed Refills Start Date End Date docosahexaenoic acid 200 mg capsule Take by mouth. 07/27/2023 ferrous sulfate (IRON ORAL) Take by mouth. ondansetron ODT (ZOFRAN-ODT) 4 mg disintegrating tablet DISSOLVE ONE TABLET BY MOUTH EVERY 8 HOURS NEEDED FOR NAUSEA AND VOMITING 07/27/2023 [id number]-FA (VINATE ONE) 60 mg iron-1 mg per [...] HOURS 08/02/2023 documented as of this encounter Progress Notes * Alvino Christianson, P.A.-C., P.A. - 01/11/2024 6:16 PM CDT SUBJECTIVE SUBJECTIVE: Deanna Garcia is an 23 y.o. female who presents for evaluation and treatment of sore throat. Symptoms also include congestion and coryza. Onset 3 days, stable since that time. Known exposure: none pertinent I have reviewed the current medication list. Allergies Allergen Reactions Zofran Odt [Ondansetron] GI intolerance ODT and liquid forms only, cause n/v. Tolerates IV and oral pill formulations. OBJECTIVE OBJECTIVE: BP 114/75 (BP Location: Right arm, Patient Position: Sitting) Pulse 84 Temp 37.4 ??C (Temporal) Resp 16 LMP 04/06/2023 (Exact Date) SpO2 97% General appearance:alert, no distress, cooperative Ears: R TM - normal landmarks and mobility without significant erythema or bulging, L TM - normal landmarks and mobility without significant erythema or bulging Nose: clear rhinorrhea Oropharynx: pharynx inflamed, cobblestoned Uvula midline Neck: small, benign anterior cervical nodes bilaterally; trismus absent Lungs: Lungs clear bilaterally Heart: regular rate and rhythm Recent Results (from the past 24 hour(s)) Group A Streptococcus PCR, Throat Collection Time: 01/11/24 3:17 PM Specimen: Throat; Swab Result Value Strep Group A, PCR, POCT Negative ASSESSMENT and PLAN: Diagnosis Plan 1. Pharyngitis Acute Acute Group A Streptococcus PCR, Throat Group A Streptococcus PCR, Throat 1) Symptomatic treatment with fluids, vaporizer, acetaminophen. 2) Recheck as needed for persistence, worsening, appearance of new symptoms. 3) Discussed sore throat etiologies. Side effects of the recommended medications discussed. Questions answered. Alvino Christianson P.A.-C., P.A. Alvino Christianson P.A.-C., P.A. 01/11/242036 documented in this encounter Plan of Treatment Not on file documented as of this encounter Procedures Procedure Name Priority Date/Time Associated Diagnosis Comments GROUP A STREP PCR, THROAT Routine 01/11/2024 3:17 PM CDT Pharyngitis Acute documented in this encounter Results * Group A Streptococcus PCR, Throat (01/11/2024 3:17 PM CDT) Strep Group A, PCR, POCT Negative Negative 01/11/2024 3:03 PM CDT NPRG Swab (Throat) 01/11/2024 3:1 7 PM CDT 01/11/2024 3:22 PM CDT Alvino Christianson P.A.-C., P.A. LAB M ICROBIOLOGY - GENERAL ORDERABLES [facility] [address] [place] [address], [facility] NPRG [facility] [address] [place] [phone] documented in this encounter Visit Diagnoses Diagnosis Pharyngitis Acute- Primary documented in this encounter Care Teams Grape Crusher Relationship Specialty Start Date End Date Elsewhere, Pcp PCP - General 08/30/21 documented as of this encounter
== END 2024-01-13 09:51 | disposition home or self-care (01) ==
LOC: NFLDREF 01-19 02:40
PROVIDERS: PCP Family Medicine; Referring Provider Family Medicine; Visit Provider Physician Assistant
DX: Z34.93 Encounter for supervision of normal pregnancy, unspecified, third trimester (principal); Z3A.32 32 weeks gestation of pregnancy
CPT/HCPCS: 82728

== ENCOUNTER 2024-01-20 09:40 | Outpatient (RCR) | payer MEDICAID, SELFPAY ==
--- NOTE | 2024-01-17 09:08 | PC.NURSE ---
Diagnosis: Iron Deficiency Anemia in
--- NOTE | 2024-01-18 13:41 | URNOTE ---
Prior auth not required for Lizet (Q0138) per [facility] Injectable Drug Auth list.
[2024-01-20 09:52] VITALS: BP 109/72; PULSE 96; RESP 16; TEMP 36.7; O2SAT 99
[2024-01-20] MEDS: ferumoxytoL 1,020 MG in 0.9 % SODIUM CHLORIDE 250 ml 250 ML 568 MG IVPB (10:39)
[2024-01-20 11:20] VITALS: BP 99/63; PULSE 71; RESP 16; O2SAT 97
== END 2024-07-18 23:59 | disposition home or self-care (01) ==
LOC: CCIC 09:40
PROVIDERS: PCP Family Medicine; Referring Provider Family Medicine; Visit Provider Clinical Nurse Specialist
DX: O99.019 Anemia complicating pregnancy, unspecified trimester (principal); D50.9 Iron deficiency anemia, unspecified
CPT/HCPCS: 96365; J7050; Q0138

== ENCOUNTER 2024-01-28 18:19 | Outpatient (CLI) | payer MEDICAID, SELFPAY ==
--- OUTSIDE RECORDS SUMMARY | 2024-01-28 18:21 | XMS_ITS | Encounter Summary ---
Author Organization [facility] Address [address] [place] [address] Care Team Providers Care Coding Assistant Name Role Phone Elsewhere, Pcp Primary Care Provider Unavailabl e Reason for Visit * Reason Comments Sore Throat Pt presents w/throat pain onset last night, denies cough and fever. Encounter Details Date Type Department Care Team (Late st Contact Info) Description 01/11/2024 5:07 PM CDT - 01/11/2024 6:48 PM CDT Emergency [facility] [address] [place] [phone] Alvino Christianson, PDedraA.-Amena., P.A. [address] [phone] Pharyngitis Acute (Primary Dx) Discharge Disposition: Home or Self Care Social History Tobacco Use Types Packs/Day Years Used Date Smoking Tobacco: Never Passive Smoke Exposure: Never Smokeless Tobacco: Never Alcohol Use Standard Drinks/Week Comments No 0 (1 standard drink = 0.6 oz pur e alcohol) [facility] Utilities Answer Date Recorded In [...] often do you attend chur ch or mandaen services? Never 07/14/2022 Do you belong to any clubs o r organizations such as islam groups, unions, fraternal or athletic groups, or [...] medical care, and heating? Somewhat hard 07/14/2022 [facility] [place] of Occupat ional Health - Occupational [...] your living situation today? I have a [facility] place to live 08/17/2023 Education Answer [...] HOURS NEEDED FOR NAUSEA AND VOMITING 07/27/2023 [id number]-FA (VINATE ONE) 60 mg iron-1 mg per [...] P.A. LAB M ICROBIOLOGY - GENERAL ORDERABLES [facility] [address] [facility] [place] [address], [facility] NPRG [facility] [address] [place] [phone] documented in this encounter Visit Diagnoses Diagnosis Pharyngitis Acute- Primary documented in this encounter Care Teams Coding Assistant Relationship Specialty Start Date End Date Elsewhere, Pcp PCP - General 08/30/21 documented as of this encounter
--- OUTSIDE RECORDS SUMMARY | 2024-01-28 18:21 | XMS_ITS | Encounter Summary ---
Author Organization [facility] Address [address] [place] [address] Care Team Providers Care Igniter Capper Name Role Phone Elsewhere, Pcp Primary Care [...] CDT - 12/06/2023 7:30 PM CDT Emergency [facility] [address] [place] [phone] Benny Cuevas M.D. [address] [place] [phone] Migraine Headache (Primary Dx); 27 Weeks Gestation (HCC) Discharge Disposition: Home or Self Care Social History Tobacco Use Types Packs/Day Years Used Date Smoking Tobacco: Never Passive Smoke Exposure: Never Smokeless Tobacco: Never Alcohol Use Standard Drinks/Week Comments No 0 (1 standard drink = 0.6 oz pur e alcohol) [facility] Utilities Answer Date Recorded In [...] and heating? Somewhat hard 07/14/2022 [facility] [place] of Occupat ional Health - Occupational Stress [...] your living situation today? I have a [facility] place to live 08/17/2023 Education Answer [...] you are . Follow up with your international logistics manager if your headache isn't improving by tomorrow. * Attachments The following attachments cannot be sent through Care Everywhere. * Migraine Headache (Armenian) documented in this encounter Medications at Time of Discharge Medication Sig Dispensed Refills Start Date End Date docosahexaenoic acid 200 mg capsule Take by mouth. 07/27/2023 ferrous sulfate (IRON ORAL) Take by mouth. ondansetron ODT (ZOFRAN-ODT) 4 mg disintegrating tablet DISSOLVE ONE TABLET BY MOUTH EVERY 8 HOURS NEEDED FOR NAUSEA AND VOMITING 07/27/2023 [id number]-[id number]-FA (VINATE ONE) 60 mg iron-1 mg per [...] Headache 2. 27 Weeks Gestation ([facility]) ED Disposition Discharge ED Prescriptions Medication [...] corrected in real-time. Please message me via [employer] In Basket if you note any areas [...] R.N.) documented in this encounter Care Teams Igniter Capper Relationship Specialty Start Date End Date Elsewhere, Pcp PCP - General 08/30/21 documented as of this encounter
--- OUTSIDE RECORDS SUMMARY | 2024-01-28 18:21 | XMS_ITS | Referral Summary ---
Author Organization [facility] Address [address] [place] [address] Care Team Providers Care Sprayer Leather Name Role Phone Elsewhere, Pcp Primary Care Provider Unavailabl e Source Comments Patient records contain information from all sites at [facility]. For routine questions regarding patient records, call [phone] during business hours, M-F 8:00 AM - 5:00 PM Central Time. Record requests for emergency care only can be directed to [phone] at any time.[facility] Encounters Date Type Department Care Team Description 01/11/2024 5:07 PM CDT - 01/11/2024 6:48 PM CDT Emergency [facility] [address] [place] [phone] Alvino Christianson P.A.-C., P.A. Pharyngitis Acute (Primary Dx) Discharge Disposition: Home or Self Care 12/06/2023 6:50 PM CDT - 12/06/2023 7:30 PM CDT Emergency [facility] [address] [place] [phone] Benny Cuevas M.D. Migraine Headache (Primary Dx); 27 Weeks Gestation (HCC) Discharge Disposition: Home or Self Care 12/06/2023 6:30 PM CDT Office Visit Urgent Care, [facility], in [place], [place] [address] [place] [phone] Ana Laura Block P.A.-C., P.A. Procedure And [...] Dispensed Refills Start Date End Date Status cqlfkni-Oc-dyyj-FA (VINATE ONE) 60 mg iron-1 mg per [...] drink = 0.6 oz pur e alcohol) [facility] Utilities Answer Date Recorded In the past 12 months has e [employer], [employer], or water [employer] threatened to shut off services in your [...] How often do you attend chur or holiness services? Never 07/14/2022 Do you belong to [...] care, and heating? Somewhat hard 07/14/2022 [facility] - [...] CDT 01/11/2024 3:22 PM CDT Alvino Christianson P.A.-C. P.ADedra LAB M ICROBIOLOGY - GENERAL ORDERABLES [facility] [address] [place] [address], [facility] NPRG [facility] [address] [place] [address] from Last 3 Months Care Teams Sprayer Leather Relationship Specialty Start Date End Date Elsewhere, Pcp PCP - General 08/30/21
--- OUTSIDE RECORDS SUMMARY | 2024-01-28 18:21 | XMS_ITS | Clinical Summary ---
Author Organization [facility] Address [address] [place] [address] Care Team Providers Care Singer Songwriter Name Role Phone Elsewhere, Pcp Primary Care Provider Unavailabl e Source Comments Patient records contain information from all sites at [facility]. For routine questions regarding patient records, call [phone] during business hours, M-F 8:00 AM - 5:00 PM Central Time. Record requests for emergency care only can be directed to [phone] at any time.[facility] Allergies Active Allergy Reactions Criticality Noted Date Comments Ondansetron GI intolerance 06/08/2022 ODT and liquid forms only, cause n/v. Tolerates IV and oral pill formulations. Medications Medication Sig Dispensed Refills Start Date End Date Status baylixh-Rh-kpei-FA (VINATE ONE) 60 mg iron-1 mg per [...] CDT - 01/11/2024 6:48 PM CDT Emergency [facility] [address] [place] [phone] Alvino Christianson P.A.-C., P.A. Pharyngitis Acute (Primary Dx) Discharge Disposition: Home or Self Care 12/06/2023 6:50 PM CDT - 12/06/2023 7:30 PM CDT Emergency [facility] [address] [place] [phone] Benny Cuevas M.D. Migraine Headache (Primary Dx); 27 Weeks Gestation (HCC) Discharge Disposition: Home or Self Care 12/06/2023 6:30 PM CDT Office Visit Urgent Care, [facility], in [place], [place] [address] [place] [phone] Ana Laura Block P.A.-C., P.A. Procedure And [...] drink = 0.6 oz pur e alcohol) [facility] Utilities Answer Date Recorded In the past 12 months has e [employer], [employer], or water [employer] threatened to shut off services in your [...] How often do you attend chur or orthodox services? Never 07/14/2022 Do you [...] medical care, and heating? Somewhat hard 07/14/2022 [facility] - [...] your living situation today? I have a [employer] place to live 08/17/2023 Education Answer Date [...] Depression Screening (Annual PHQ-2) 05/09/2023 COVID-19 Vaccine (1 - season) 2024 RSV vaccine - (32-36 weeks) [...] P.A. LAB M ICROBIOLOGY - GENERAL ORDERABLES [facility] [address] [place] [address], [facility] NPRG [facility] [address] [place] [address] from Last 3 Months Care Teams Singer Songwriter Relationship Specialty Start Date End Date Elsewhere, Pcp PCP - General 08/30/21
--- OUTSIDE RECORDS SUMMARY | 2024-01-28 18:21 | XMS_ITS | Clinical Summary ---
Author Organization [facility] Address [place], [place] [address] Care Team Providers Care Freezer Person Name Role Phone [facility] Primary Care Pr ovider Allergies No known [...] Relation Name Comments Bipolar disorder Brother 1 Pryor Thyroid Disease Brother 1 Eran Good Health [...] Comments Blood Pressure 118/72 06/30/2022 2:37 PM RN MEDICAL SURGICAL Pulse 83 06/30/2022 2:37 PM RN MEDICAL SURGICAL Temperature 36.9 ??C (98.4 ??F) 12/25/2021 4:00 PM CD T Respiratory Rate 16 12/25/2021 4:00 PM CDT Oxygen Saturation 98% 12/25/2021 4:00 PM CDT Inhaled Oxygen Concentration - - Weight 52.2 kg (115 lb) 06/30/2022 2:37 PM RN MEDICAL SURGICAL Height 162.6 cm (5' 4) 12/25/2021 4:00 [...] Procedure Name Priority Date/Time Associated Diagnosis Comments PUNCH OPERATOR THIN PREP PAP SCREEN IMAGED Routine 03/24/2023 12:00 PM RN MEDICAL SURGICAL from Last 3 Months or Most Recently Relevant to Health Maintenance Results * PUNCH OPERATOR THIN PREP PAP SCREEN IMAGED (03/24/2023 12:00 PM RN MEDICAL SURGICAL) Case Report Gynecologic Cytology Report ? Case: [id number] ? Authorizing Provider: ??Harmony Colon ?Collected: ? 03/24/2023 1200 ? MD Lennie ? Ordering Location: ? [facility] ?Received: ?03/28/2023 1655 ? First Screen: ?Nino Dimas ? Specimen: ?PUNCH OPERATOR ThinPrep Vial Screening, Cervical ? 04/07/2023 1:26 PM RN MEDICAL SURGICAL [employer] [facility] LABORAT[facility]-C ENTRAL LABORATORY INTERPRETATION/ RESULT NEGATIVE FOR INTRAEPITHELIAL LESION OR MALIGNANCY (NIL) (none) 04/07/2023 1:26 PM RN MEDICAL SURGICAL [employer] [facility] LABORATORY-C ENTRAL LABORATORY IMEN ADEQUACY Satisfactory for evaluation Endocervical component present 04/07/2023 1:26 PM RN MEDICAL SURGICAL [facility] HPV REQUEST HPV not requested 2022 1:26 PM RN MEDICAL SURGICAL [facility] Date of LMP 03/05/2023 04/07/2023 1:26 PM RN MEDICAL SURGICAL [facility] Abnormal Pap or Oden Bx in last 5 years No 04/07/2023 1:26 PM RN MEDICAL SURGICAL [facility] Menstrual Status Irregular Periods 04/07/2023 1:26 PM RN MEDICAL SURGICAL [facility] Oden Bx Done Today No 04/07/2023 1:26 PM RN MEDICAL SURGICAL [facility] Additional Information 04/07/2023 1:26 PM RN MEDICAL SURGICAL [facility] Comment: Interpreted at [facility] - [address] [place] [id number] Automated Review Successful 04/07/2023 1:26 PM RN MEDICAL SURGICAL [facility] Comment:Specimen processed s uccessfully by automated director of content marketing device, Thin[employer] Imaging System, [employer] Note The pap test is a screening technique, not a diagnostic procedure. It is used primarily to screen for squamous cancers and precursor lesions. Published studies have shown that it is subject to both false negative and false positive results. The pap test should not be used as the sole means to diagnose or exclude pre-malignant and malignant lesions. 04/07/2023 1:26 PM RN MEDICAL SURGICAL [facility] Other (Cervical) 03/24/2023 12:00 PM RN MEDICAL SURGICAL 03/28/2023 4:55 PM RN MEDICAL SURGICAL Harmony Colon MD PATHOLOGY/ CYTOLOGY [facility] [employer] [facility] [address] [place] [address], [place] from Last 3 Months or Most Recently Relevant to Health Maintenance Care Teams Freezer Person Relationship Specialty Start Date End Date Clinic, [facility] [address] [place] [address] PCP - General 12/19/23
--- OUTSIDE RECORDS SUMMARY | 2024-01-28 18:21 | XMS_ITS | Encounter Summary ---
Author Organization [facility] Address [address] [place] [address] Care Team Providers Care Neighborhood Coordinator Name Role Phone Elsewhere, Pcp Primary Care Provider Unavailabl e Encounter Details Date Type Department Care Team (Late st Contact Info) Description 12/06/2023 6:30 PM CDT Office Visit Urgent Care, [facility], in [place], [place] [address] [place] [phone] Ana Laura Block, [employer]uc-Amena., P.A. [address] [place] [phone] Procedure And Treatment Not Carried Out Due To Patient Leaving Prior To Being Seen By Health Care Provider (Primary Dx) Discharge Disposition: Home or Self Care Social History Tobacco Use Types Packs/Day Years Used Date Smoking Tobacco: Never Passive Smoke Exposure: Never Smokeless Tobacco: Never Alcohol Use Standard Drinks/Week Comments No 0 (1 standard drink = 0.6 oz pur e alcohol) [facility] Utilities Answer Date Recorded In the past 12 months has [employer], gas, oil, or water [employer] threatened to shut off services in your [...] often do you attend chur ch or confucianist services? Never 07/14/2022 Do you belong to any clubs o r organizations such as protestant groups, unions, fraternal or athletic groups, or [...] heating? Somewhat hard 07/14/2022 [facility] [place] [facility] - Occupational Stress [...] your living situation today? I have a [facility] place to live 08/17/2023 Education [...] Primary documented in this encounter Care Teams Neighborhood Coordinator Relationship Specialty Start Date End Date Elsewhere, Pcp PCP - General 08/30/21 documented as of this encounter
--- OUTSIDE RECORDS SUMMARY | 2024-01-28 18:21 | XMS_ITS ---
Author Organization [facility] Address [address] [place] [address] Care Team Providers Care Recruitment Director Name Role Phone Unavailable Unavailable Unavailable Surgery Details Not on file Complications Check Surgery Details section. Procedure Estimated Blood Loss Check Surgery Details section. Procedure Findings Check Surgery Details section. Procedure Specimens Taken Check Surgery Details section.
[2024-01-28 18:32] VITALS: PULSE 125; O2SAT 98
[2024-01-28 18:44] VITALS: BP 113/63; PULSE 91
[2024-01-28 19:00] LABS: Appearance Urine Clear (Clear); Bilirubin Urine Negative (Negative); Blood Urine Trace-intact (Negative); Color Urine Yellow (Yellow); Glucose Urine Negative (Negative); Ketones Urine Negative (Negative); Leukocyte Esterase Urine 1+ (Negative); Nitrite Urine Negative (Negative); Protein Urine Negative (Negative); Urobilinogen Urine 0.2 (0.2-1.0)
[2024-01-28 19:13] LABS: Bacteria Urine Moderate; Squamous Epithelial Cell Urine Many (None-Few)
[2024-01-28] MEDS: LACTATED RINGERS 1000 ML 1,000 ML 500 ML IV (19:42)
--- NOTE | 2024-01-28 20:35 | P.OBT_ITS ---
History of Present Illness History of Present Illness Date Seen: 01/28/24 History of Present Illness: 23 year old at 34 weeks, 4 days gestation by LMP consistent with 1st trimester ultrasound, TONYA 03/06/2024, presents with complaint of consistent, regular, painful contractions throughout this afternoon. She began to feel mild crampy pain this morning, and awoke from a nap this afternoon with worsening intensity of contractions. She denies any loss of fluid or vaginal bleeding. She has no history of . This is otherwise complicated by/notable for: # Personal history of Factor V Leiden: Heterozygous. Denies history of VTE. - anticoagulation X 6 weeks in case of or other risk factors # History of : Due to arrest of decent 02/01/20. 8 lbs 1 oz. Desires TOLAC. Consent signed. -Likelihood of sucess = 72% -Consult with OBGYN to sign TOLAC consent: discussed 10/17, sent home with patient -36-week growth ultrasound recommended. # History of immediate hemorrhage requiring Bakri balloon and transfusion #Abnormal 1 hr GTT -3hr GTT: all normal #Anemia: - H/o iron transfusions in prior . -CBC 09/27/23: Hb 12.0, Hct 36.4% -Currently taking daily iron 25 mg per patient report. -Written materials provided on dietary intake of iron rich foods. -HGB at 28 weeks: 10.7mg/dL, instructed to increase to 2 pills every other day. Re check Hgb at 32 weeks, instead of 34 weeks. 10.4 Ferritin 4.9 -S/p Iron infusion 01/19 # Chronic diarrhea, nausea/vomiting and abdominal pain since 03/2023. * As of 10/17, nausea / vomiting and pain has improved. * Previous EGD and colonoscopy reportedly unrevealing. * GI consult with [facility] in [place] 08/22/23: fecal calprotectin, CRP, magnesium, SIBO and fructose breath tests ordered. CT planned . # Possible subclinical hypothyroidism. * TSH < 0.015 on 08/30/23. Free T4 normal at 1.12, total T3 normal. * Referral to Endocrine: repeat TSH, free T4 and total T4 and TSI antibody testing. If antibody testing is positive then she would need [facility] referral. Orders placed by endocrine. # History of Migraine with Aura: Previously on daily Propranolol and rescue Rizatriptan prepregnancy. Discontinued with positive UPT. -Currently using sumatriptan prn. Advised patient to contact clinic if experiencing unmanageable headache. # Vitamin D deficiency. 26 on 09/19. On supplementation. # Varicella is equivocal. PP vaccine [] Ultrasounds: 07/27/2023: 8 weeks and 1 day by CRL with a sonographic TONYA of 03/05/2024. Small perigestational hemorrhage measuring 2 x 1 cm. 10/18/2023: anatomy scan. RVOT not well visualized. Otherwise normal anatomy. Posterior placenta without previa, normal fluid, 3.4 cm cervical length, EFW 75%, AC 77%. 11/23/2023: Cephalic, normal fluid, normal RVOT. Flu: Recommended, Patient desires, left clinic prior to administration. Nurse to call patient to offer. Covid: Recommended, declined Offer 3rd and final HPV vaccine PP [] Meds Home Medications and Allergies Home Medications ?Medication ?Instructions ?Recorded ?Confirmed ?Type docosahexaenoic acid 200 mg 200 mg PO DAILY 07/27/23 01/28/24 History capsule ( DHA) calcium carbonate (Tums) 200 mg PO BID 10/18/23 01/28/24 History famotidine 20 mg tablet (Pepcid) 20 mg PO QDAY 12/13/23 01/28/24 History ferrous sulfate 250 mg (50 mg 250 mg PO Q OTHER DAY 01/20/24 01/28/24 History iron) tablet,extended release Allergies Allergy/AdvReac Type Severity Reaction Status Date / Time No Known Allergies Allergy Unknown Unknown Verified 01/28/24 18:48 [facility] Medical History Anemia affecting ?O99.019 - Anemia complicating , unspecified trimester (ICD-10) Abnormal thyroid blood test ?R79.89 - Other specified abnormal findings of blood chemistry (ICD-10) Medical marijuana use ?Z79.899 - Other detention (current) drug therapy (ICD-10) GERD (gastroesophageal reflux disease) ?K21.9 - Gastro-esophageal reflux disease without esophagitis (ICD-10) Tension headache ?G44.209 - Tension-type headache, unspecified, not intractable (ICD-10) Migraine with aura ?G43.109 - Migraine with aura, not intractable, without status migrainosus (ICD-10) Factor V Leiden mutation ?D68.51 - Activated protein C resistance (ICD-10) Surgical History Status post primary low transverse section (01/31/22) ?Z98.891 - History of uterine scar from previous surgery (ICD-10) History of esophagogastroduodenoscopy (EGD) ?Z98.890 - Other specified postprocedural states (ICD-10) Family History Maternal Grandmother Cancer Factor V Leiden Thyroid cancer Kidney disease Crohn's disease Mother Factor V Leiden Stroke, Onset Age: 37 Graves disease Romain's thyroiditis Brother Factor V Leiden Aunt Factor V Leiden Social History Narrative: Lives in [place] with boyfriend and daughter. Lives with significant other, [place]. Works for [employer] 1 daughter, 1 cat and 1 dog Does not exercise on regular basis Alcohol: No Nonsmoker No recreational drug use Dietary restrictions: lactose intolerance Multiple body piercings and tattoos What is your current living situation?: I presently have a place to live In the past 12 months, utilities in danger of being shut off: no In past 12 months, lack of transportation kept you from medical appts, meetings, work, or getting things needed for daily living: no In the past 12 mos, have been you worried that your food would run out before you had money to buy more?: never true In the past 12 mos, the food you bought just didn't last and you didn't have money to buy more?: sometimes true Smoking Status: Never smoker Do you use any of these nicotine containing products: None How often do you have a drink containing alcohol: never How often do you have six or more drinks on one occasion: Never AUDIT-C Alcohol total score: 0 Non-prescribed substance use: denies use How often does anyone, including family, friends and others, physically hurt you : never How often does anyone, including family, friends and others, insult or talk down to you: never How often does anyone, including family, friends and others, threaten you with harm: never How often does anyone, including family, friends and others, scream or curse at you: never Little interest or pleasure in doing things: not at all Feeling down, depressed, or hopeless: not at all History History 3 Elective abortions Para 1 Spontaneous abortions Hx # Term Pregnancies Ectopic pregnancies Hx # Pregnancies Multiple births Number of Living Children Past Pregnancies Del. Date GA/Weeks Outcome Route wt Inf Gender Labor Lgth Anesthesia Location Provider Compli 02/01/20 39 live - full term low transverse 8 lb 1 oz Female epidural [facility] - H&P: Exam Physical Exam Vital signs: Pulse BP Pulse Ox 91 113/63 98 01/28/24 18:44 01/28/24 18:44 01/28/24 18:32 Narrative: Physical exam: General: No acute distress Psych: Alert and oriented x3, full affect HEENT: Normocephalic, atraumatic Neck: No cervical adenopathy, no thyromegaly Heart: Regular rate and rhythm, no murmur rub or gallop Lungs: Clear to auscultation bilaterally Abdomen: Soft, nontender, gravid, cephalic lie Lower extremities: No edema or erythema Pelvic exam: On my cervical exam at 8:30 p.m., she is 1 cm, 75% effaced, ballotable with an intact bag of water, cephalic. On previous exam by RN, she was 1 cm, 30% effaced tracing: Baseline 150, accelerations present, no decelerations, moderate variability. Contractions occurring approximately every 3-4 minutes Results Labs Laboratory Tests 01/28/24 Range/Units 18:53 Urine Color Yellow (Yellow) Urine Appearance Clear (Clear) Urine pH 7.0 (5.0-8.5) Ur Specific [place] 1.010 (1.000-1.030) Urine Protein Negative (Negative) Urine Glucose (UA) Negative (Negative) Urine Ketones Negative (Negative) Urine Blood Trace-intact A (Negative) Urine Nitrite Negative (Negative) Urine Bilirubin Negative (Negative) Urine Urobilinogen 0.2 (0.2-1.0) Ur Leukocyte Esterase 1+ A (Negative) Urine RBC 2-5 A (0-2) Urine WBC 10-25 A (0-5) Ur Squamous Epith Cells Many A (None-Few) Urine Bacteria Moderate A (None) Assessment and Plan Assessment and plan (1) labor: Status: Acute Plan Slight change in cervical effacement over the last hour and a half, with consistent painful contractions. Patient has a history of delivery and would like to attempt trial of labor after . Given that she is less than 35 weeks, I opted to transfer her to a higher level of care. GBS culture was collected. She was then given a dose of ampicillin 2 g a dose of betamethasone 12 mg IM. She was given a single dose of nifedipine 20 mg immediate release. I discussed her case with ETHAN Jean Baptiste at [facility], who accepts her in transfer.
[2024-01-28] MEDS: NITROFURANTOIN MONOHYD MACRO 100 MG CAPSULE PO (20:46)
[2024-01-28 21:08] VITALS: BP 124/72; PULSE 98
[2024-01-28] MEDS: AMPICILLIN 2 GM in 0.9 % SODIUM CHLORIDE Mini-bag 100 ML IVPB (21:08)
[2024-01-28] MEDS: BETAMETHASONE SOD PHOS/ACETATE 6 MG/ML ML 12 MG IM (21:08)
[2024-01-28] MEDS: NIFEdipine 10 MG CAPSULE 20 MG PO (21:09)
[2024-01-28 21:16] VITALS: PULSE 103; O2SAT 99
[2024-01-28 21:36] VITALS: BP 119/64; PULSE 116; TEMP 37.1
[2024-01-28 21:48] VITALS: BP 118/72; PULSE 110
--- NOTE | 2024-01-28 22:27 | PC.OBNST ---
NST Note NST Note Start: 01/28/24 18:21 Freq: ONCE Status: Active Protocol: Document 01/28/24 22:25 SABINE (Rec: 01/28/24 22:27 SABINE Desktop) NST Note 3 Para (# of births) 1 EDC 03/06/24 Gestational Age In Weeks & Days 34 Weeks & 4 Days Patient Presented with Complaint(s) of Contractions/cramping Reactive Yes Appropriate for Gestational Age Yes ENOCH QUIROZ Date 01/28/24 Reactive Yes Appropriate for Gestational Age Yes ENOCH PINEDA Date 01/28/24 OB NST charge Yes Complete NST Note via Write Note Yes The provider's electronic signature indicates the NST is reactive/appropriate for gestational age. *Note to provider: If an addendum is required, open the patient's chart and click on the note under the Nurse/Allied Health tab.
[2024-01-28 23:25] LABS: Chlamydia DNA Amplified* NOT DETECTED (No Detected); GC DNA Amplified* NOT DETECTED (No Detected)
[2024-01-29 16:18] LABS: Strep B DNA Probe Negative (Negative)
[2024-01-29 17:00] LABS: Strep B Susceptibility Needed? No
== END 2024-01-28 22:00 | disposition short-term general hospital (02) ==
LOC: OB OUT 18:19 → OB 18:20
PROVIDERS: PCP Family Medicine; Visit Provider Obstetrics & Gynecology
DX: O60.03 Preterm labor without delivery, third trimester (principal); Z3A.34 34 weeks gestation of pregnancy
CPT/HCPCS: 59025; 81001; 81003; 87081; 87086; 87491; 87591; 87653; G0463; A9270; J0290; J0702; J7120

== ENCOUNTER 2024-01-28 21:54 | Outpatient (CLI) | payer MEDICAID, SELFPAY ==
--- OUTSIDE RECORDS SUMMARY | 2024-02-03 00:37 | XMS_ITS ---
Author Organization [place] Address [address] [place] [address] Care Team Providers Care Welder Helper Name Role Phone Shalonda Barrett MD Primary Care Provider + Transitional Care Management Status:Enrolled (Active) Start date:01/31/2024 Enrollment date:01/31/2024 Continued Care and Services Coordination
--- OUTSIDE RECORDS SUMMARY | 2024-02-03 00:37 | XMS_ITS | Encounter Summary ---
Author Organization [place] Address [address] [place] [address]. [place] [address] Care Team Providers Care Sales Teacher Name Role Phone Shalonda Barrett MD Primary Care Provider + Encounter Details Date Type Department Care Team (Late st Contact Info) Description 01/29/2024 11:59 PM CDT Anesthesia Event [facility] [address] [place] [phone] Claus House MD [address] [place] [address] Anesthesia Record Procedure Summary Procedure Name [...] in an abandoned building, in an overnight usp, or couch-surfing.) Yes 01/28/2024 Are you worried [...] on filedocumented in this encounter Care Teams Sales Teacher Relationship Specialty Start Date End Date Shalonda Barrett MD [facility] [address] PCP - General Family Medicine 01/29/24 documented as of this encounter
--- OUTSIDE RECORDS SUMMARY | 2024-02-03 00:37 | XMS_ITS ---
Author Organization [facility] Address [address] [place] [address] Care Team Providers Care Quality Assurance Supervisor Chassis Name Role Phone Unavailable Unavailable Unavailable Surgery Details Not on file Complications Check Surgery Details section. Procedure Estimated Blood Loss Check Surgery Details section. Procedure Findings Check Surgery Details section. Procedure Specimens Taken Check Surgery Details section.
--- OUTSIDE RECORDS SUMMARY | 2024-02-03 00:37 | XMS_ITS | Encounter Summary ---
Author Organization [facility] Address [address] [place] [address] Care Team Providers Care Regional Account Director Name Role Phone Elsewhere, Pcp Primary Care Provider Unavailabl e Reason for Visit * Reason Comments Sore Throat Pt presents w/throat pain onset last night, denies cough and fever. Encounter Details Date Type Department Care Team (Late st Contact Info) Description 01/11/2024 5:07 PM CDT - 01/11/2024 6:48 PM CDT Emergency [facility] [address] [place] [phone] Alvino Christianson, PDedraA.-Amena., P.A. [address] [phone] Pharyngitis Acute (Primary Dx) Discharge Disposition: Home or Self Care Social History Tobacco Use Types Packs/Day Years Used Date Smoking Tobacco: Never Passive Smoke Exposure: Never Smokeless Tobacco: Never Alcohol Use Standard Drinks/Week Comments No 0 (1 standard drink = 0.6 oz pur e alcohol) [facility] Utilities Answer Date Recorded In [...] any clubs o r organizations such as oriental orthodox groups, unions, fraternal or athletic groups, [...] medical care, and heating? Somewhat hard 07/14/2022 [facility] [place] of Occupat ional Health - Occupational Stress [...] your living situation today? I have a [facility] place to live 08/17/2023 Education Answer [...] HOURS NEEDED FOR NAUSEA AND VOMITING 07/27/2023 shtkagb-Al-wbqh-FA (VINATE ONE) 60 mg iron-1 mg per [...] P.A. LAB M ICROBIOLOGY - GENERAL ORDERABLES [facility] [address] [place] [address], [facility] NPR[facility] [address] [place] [address] documented in this encounter Visit Diagnoses Diagnosis Pharyngitis Acute- Primary documented in this encounter Care Teams Regional Account Director Relationship Specialty Start Date End Date Elsewhere, Pcp PCP - General 08/30/21 documented as of this encounter
--- OUTSIDE RECORDS SUMMARY | 2024-02-03 00:37 | XMS_ITS | Clinical Summary ---
Author Organization [place] Address [address] [place] [address]. [place] [address] Care Team Providers Care Powerhouse Operator Name Role Phone Shalonda Barrett MD Primary [...] Description 01/29/2024 11:59 PM CDT Anesthesia Event [facility] [address] [facility] [address] [address] [phone] Claus House MD 01/29/2024 Travel 01/28/2024 10:53 PM CDT - 01/30/2024 9:38 AM CDT Hospital Encounter [facility] [address] [phone] Claus Herman MD Discharge Disposition: Home or Self Care 01/28/[address] [facility] [address] [place] [phone] Claus Herman MD from Last 3 Months [...] in an abandoned building, in an overnight correction, or couch-surfing.) Yes 01/28/2024 Are you worried [...] CDT Oxygen Saturation 96% 06/19/2019 11:22 PM MACHINE OPERATOR HELPER Inhaled Oxygen Concentration - - Weight 60.9 kg (134 lb 3.2 oz) 01/29/2024 7:35 A M CDT Height 162.6 cm (5' 4) 06/19/2019 8:51 PM MACHINE OPERATOR HELPER Body Mass Index 23.04 06/19/2019 8:51 PM MACHINE OPERATOR HELPER Plan of Treatment Health Maintenance Due Date [...] Procedure Name Priority Date/Time Associated Diagnosis Comments [facility] US COMPREHENSIVE SINGLE Routine 01/30/2024 8:25 AM [...] ? Study Date: ??01/30/2024 7:08am Pat. NO: ??[id number] ?Referring ??MD: ROSA BARBA Site: ? Assistant Professor In Family Studies: Vicky Alvarado RDMS : ??2000 ?Age: ?? 23 ----- INDICATION ----- Inpatient. labor. METHOD ----- [facility] ANTEPARTUM inpatient exam. Transabdominal ultrasound examination. [...] lb 15 ?oz EFW by ? Hadlock ([id number]) Head / Face / Neck Biometry: Servicenow Administrator ?4.3 ? mm CM ? 6.3 ? [...] view. RVOT view. LVOT view. 3-vessel view. 3-gcwmtj-qvlkmee view. Situs. Aortic arch view. Bicaval view. [...] GARCIA Study Date: 01/30/2024 7:08am Pat. NO: [id number] Referring MD: ROSA BARBA Site: Assistant Professor In Family Studies: Vicky Alvarado RDMS : 2000 Age: 23 ----- INDICATION ----- Inpatient. labor. METHOD ----- [facility] ANTEPARTUM inpatient exam. Transabdominal ultrasound examination.View: [...] EFW (lb,oz) 5 lb 15oz EFW by Hadlock([id number]-YQ-[id number]-FL) Head / Face / Neck Biometry: Servicenow Administrator 4.3mm CM 6.3mm Nasal bone 10.4mm ANATOMY ----- The following structures appear normal: Head / Neck Cranium. Head size. Head shape.Lateral ventricles. Choroid plexus. Midline falx. Cavum septi pellucidi.Cerebellum. Cisterna magna. Parenchyma. Thalami. Vermis. Neck. Face Lips. Profile. Nose. Maxilla.Mandible. Orbits. Lens. Heart / Thorax 4-chamber view. RVOT view. LVOT view.3-vessel view. 9-rlrlmt-ucwhdus view. Situs. Aortic arch view. Bicavalview. Ductal [...] fluid volume appeared normal. Jessa Zacarias MD [facility] US ORDERABLE S * (ABNORMAL) CBC with platelets (01/29/2024 10:06 AM CDT) [facility] Signature WBC Count 9.9 4.0 - [...] - BLOOD ORDERABL ES Performing Organization Address City/[facility]/ZIP Co de Phone Number UR LABORATORY [facility] Acute Care Lab [facility], Room [address] * Adult Type and Screen (01/29/2024 12:56 AM CDT) ABO/RH(D) O POS 01/29/2024 12:34 AM CDT UR BLOOD BANK Antibody Screen Negative Negative 01/29/2024 12:34 AM CDT UR BLOOD BANK SPECIMEN EXPIRATION DATE [id number] 01/29/2024 12:34 AM CDT UR BLOOD BANK Blood STRUCTURE OF RIGHT UPPER LIMB / Unknown Venipuncture / Unknown 01/29/2024 12:56 AM CDT 01/29/2024 1:02 AM CDT Lev Alejandro MD LAB - BLOOD BANK RICHARD T ORDER Performing Organization Address [facility] Co de Phone Number UR BLOOD BANK [facility] Blood Components Lab [address] [place] [address], Room [place] [phone] * (ABNORMAL) UA with Microscopic reflex [...] 01/29/2024 1:05 AM CDT UR LABORATORY Specific [place] Urine 1.009 1.003 - 1.035 01/29/2024 1:05 [...] LAB - URINE ORDERABL ES UR LABORATORY [facility] Acute Care Lab [address] [facility], [address] [place] [address] * Chlamydia trachomatis/Neisseria gonorrhoeae by PCR (01/29/2024 12:38 AM CDT) Chlamydia Trachomatis Negative Negative 01/29/2024 11:09 AM CDT [facility] Comment: Negative for C. trachomatis rRNA by cloth folder hand mediated amplification. A negative result by cloth folder hand mediated amplification does not preclude the presence of infection because results are dependent on proper and adequate collection, absence of inhibitors and sufficient rRNA to be detected. Neisseria gonorrhoeae Negative Negative 01/29/2024 11:09 AM CDT [facility] Comment:Negative for N. gono rrhoeae rRNA by cloth folder hand mediated amplification. A negative result by cloth folder hand mediated amplification does not preclude the presence of C. trachomatis infection because results are dependent on proper and adequate collection, absence of inhibitors and sufficient rRNA to be detected. Swab CERVIX UTERI STRUCTURE / Unknown Non-blood Collection / Unknown 01/29/2024 12:38 AM CDT 01/29/2024 12:45 AM CDT Lev Alejandro MD LAB - MICRO GENERAL ORDERABLES [facility] Inf. Diseases Diag. Lab [address] [facility], [address] [place] [address], [facility] * (ABNORMAL) Wet prep (01/29/2024 [...] LAB - MICRO GENERAL ORDERABLES UR LABORATORY [facility] Acute Care Lab [address] [facility], [address] [place] [address], [facility] * Group B strep PCR [...] LABORATORY - 01/29/2024 8:46 PM CDT [employer] Xpert GBS LB Assay, performed on the [employer], is a qualitative in vitro diagnostic [...] or monitor treatment for GBS infections. The [employer] Xpert GBS LB Assay is intended for use in hospital, reference or state laboratory settings. The device is not intended for djwdp-el-adyu use. Lev Alejandro MD LAB - MICRO GENERAL ORDERABLES [facility] Inf. Diseases Diag. Lab [address] [facility], [address] [place] [address] * HIV-1 Antibody (External Result) (07/27/2023 12:27 AM CDT) HIV 1&2 Antibody (External) Negative Nonreactive [facility] 07/27/2023 12:2 7 AM CDT Patient Reported LAB - HIM EXTERNAL R ESULT [facility] [address] [place], [place] [address] [phone] from Last 3 Months or Most Recently Relevant to Health Maintenance Advance Directives For more information, please contact: [phone] * Full Code (Latest Code Status on File) Date Activated Date Inactivated Comments 01/29/2024 12:33 AM 01/30/2024 11:44 AM All basic and advanced life-sustaining interventions are performed as appropriate Question Answer Comments Code status determined by: Discussion with patie nt/ legal decision maker Care Teams Powerhouse Operator Relationship Specialty Start Date End Date Shalonda Barrett MD [facility] [address] [place] [address] PCP - General Family Medicine 01/29/24
--- OUTSIDE RECORDS SUMMARY | 2024-02-03 00:37 | XMS_ITS | Clinical Summary ---
Author Organization [facility] [place] [facility] Address [address] [place] [address] Care Team Providers Care Sample Shoe Inspector And Reworker Name Role Phone Elsewhere, Pcp Primary Care Provider Unavailabl e Source Comments Patient records contain information from all sites at [facility] [place] [facility]. For routine questions regarding patient records, call [phone] during business hours, M-F 8:00 AM - 5:00 PM Central Time. Record requests for emergency care only can be directed to [phone] at any time.[facility] [place] [facility] Allergies Active Allergy Reactions Criticality Noted Date Comments Ondansetron GI intolerance 06/08/2022 ODT and liquid forms only, cause n/v. Tolerates IV and oral pill formulations. Medications Medication Sig Dispensed Refills Start Date End Date Status [id number] (VINATE ONE) 60 mg iron-1 mg per [...] CDT - 01/11/2024 6:48 PM CDT Emergency [facility] [address] [place] [phone] Alvino Christianson P.A.-C., P.A. Pharyngitis Acute (Primary Dx) Discharge Disposition: Home or Self Care 12/06/2023 6:50 PM CDT - 12/06/2023 7:30 PM CDT Emergency [facility] [address] [place] [phone] Benny Cuevas M.D. Migraine Headache (Primary Dx); 27 Weeks Gestation (HCC) Discharge Disposition: Home or Self Care 12/06/2023 6:30 PM CDT Office Visit Urgent Care, [facility], in [place], [place] [address] [place] [phone] Ana Laura Block P.A.-C., P.A. Procedure And [...] drink = 0.6 oz pur e alcohol) [facility] Utilities Answer Date Recorded In the past 12 months has e [employer], [employer], or water [employer] threatened to shut off services in your [...] How often do you attend chur or pentecostalism services? Never 07/14/2022 Do you [...] [facility] - Occupational Stress [...] your living situation today? [facility] 08/17/2023 Education Answer [...] P.A. LAB M ICROBIOLOGY - GENERAL ORDERABLES [facility] [address] [place] [address], [facility] NPRG [facility] [address] [place] [address] from Last 3 Months Care Teams Sample Shoe Inspector And Reworker Relationship Specialty Start Date End Date Elsewhere, Pcp PCP - General 08/30/21
--- OUTSIDE RECORDS SUMMARY | 2024-02-03 00:37 | XMS_ITS | Encounter Summary ---
Author Organization [place] Address [facility] [place] [address] Care Team Providers Care Management Professor Name Role Phone No Ref-Primary, Physician Primary Care Provider Shalonda Barrett MD Primary Care Provider + Reason for Visit * Auth/Cert (Routine) Specialty Diagnoses / Procedures Referred By Berkley lubin Referred To Contact germ drier Diagnoses Maternity*TONYA: * Labor uterine contractions Ur [facility] [address] [place] [address] Referral ID Status Reason Start Date Expiration Date Visits Re quested Visits Authorized [id number] 1 1 Encounter Details Date Type Department Care Team (Late st Contact Info) Description 01/28/2024 Hospital Encounter [facility] [address] [place] [address] Claus Heramn MD [address] [facility] [address] [place] [address] Social History Tobacco Use Types [...] in an abandoned building, in an overnight prison, or couch-surfing.) Yes 01/28/2024 Are you worried [...] on filedocumented in this encounter Care Teams Management Professor Relationship Specialty Start Date End Date No Ref-Primary, Physician PCP - General 06/19/19 01/28/24 Shalonda Barrett MD [address] [address] PCP - General Family Medicine 01/29/24 documented as of this encounter
--- OUTSIDE RECORDS SUMMARY | 2024-02-03 00:37 | XMS_ITS | Encounter Summary ---
Author Organization [place] Address [facility]0 [facility] [place] [address] Care Team Providers Care Paste Up Worker Name Role Phone No Ref-Primary, Physician Primary Care Provider Shalonda Barrett MD Primary Care Provider + Reason for Visit * Reason Comments Labor * Auth/Cert (Routine) Specialty Diagnoses / Procedures Referred By Contac t Referred To Contact blanket cutter hand Diagnoses Maternity*TONYA: * Labor uterine contractions Ur [address] [place] [address] Referral ID Status Reason Start Date Expiration Date Visits Re quested Visits Authorized [id number] 1 1 Encounter Details Date Type Department Care Team (Latest Contact Info) Description 01/28/2024 10:53 PM CDT - 01/30/2024 9:38 AM CDT Hospital Encounter [facility] [address] [place] [address] Claus Herman MD [address] [place] [address] Discharge Disposition: Home or Self [...] in an abandoned building, in an overnight senior living, or couch-surfing.) Yes 01/28/2024 Are you worried [...] Body Mass Index 23.04 06/19/2019 8:51 PM PHOTO MANAGER documented in this encounter Discharge Summaries * Jessa Zacarias MD - 01/30/2024 9:28 AM CDT [facility] Discharge Summary Sid Garcia Age: [age] year [...] presents as a transfer of care from [facility] with concerns for labor. She started to notice back pain and frequent abdominal tightening this morning (01/27). She thought it was Bryan Us contractions so continued with her planned [...] increase in swelling, generalized unwell feeling Jessa Zacarias MD Foundry Worker PGY-3 01/30/24 9:31 AM Associated attestation - [...] Where can you learn more? Go to https://www.[employer].net/patiented Enter N531 in the search box to learn more about Learning About When to Call Your Doctor During (After 20 Weeks). Current as of: November 15, 2022 Content Version: 14.1 ?? [employer]. Care instructions adapted under license by your healthcare professional. If you have questions about a medical condition or this instruction, always ask your healthcare professional. [employer], [employer] disclaims any warranty or liability for your use of this information. documented in this encounter Medications at Time of Discharge Medication Sig Dispensed Refills Start Date End Date Ferrous Gluconate (IRON 27 PO) Take 2 tablets by mouth every other day. Vit-Fe Fumarate-FA ( MULTIVITAMIN PLUS IRON) 27-1 MG TABS Take 1 tablet by mouth daily. SUMAtriptan (IMITREX) 25 MG tablet Take by mouth at onset of headache for migraine. metoclopramide (REGLAN) 10 MG tablet Take 1 tablet (10 mg) by mouth 3 times daily as needed (headache or nausea) 20 tablet 1 06/19/2019 documented as of this encounter Progress Notes [...] bpm, mod variability, accelerations present, no decelerations Bufalo: 0 contractions/10 minutes Imaging: [facility] US COMPREHENSIVE (01/30/24) IMPRESSION 1. Thomas at [...] concern for labor as a ROBER form [place]. Her has been notable for: - History of delivery (failure to progress, second stage) - H/o hemorrhage requiring blood transfusion, Bakri balloon - Anemia - GCT elevated, normal GTT - Factor V Leiden heterozygote - Rubella equivocal - Migraines # C/f Labor Presented with painful uterine contractions to [facility]. Workup at outside hospital concerning for possible increasing cervical effacement so transfer was recommended for higher level NICU cares. At presentation to [facility], infectious workup unremarkable including negative wet [...] and discussed with Dr. Claus Zacarias MD Foundry Worker PGY-3 01/30/24 8:42 AM Associated attestation - Claus Herman MD - 01/30/2024 11:30 AM CDT Physician Attestation I saw this patient with the resident and agree with the resident/fellow's findings and plan of careas documented in the note. [place] findings: Patient is a 23 YO at 34w6d who presented as transport from [facility] 01/28/2024 for concerns of threatened labor in the setting of late period and history of LTCS desiring TOLAC. Since admission the cervix remains unchanged and the patient is noting less contractions today. She has taken no further nifedipine. The fetus is reassuring on FHR monitoring. US today is reassuring and normal. The patient is comfortable with discharge to follow up with [facility] OB team. 25 MINUTES SPENT BY ME [...] bpm, mod variability, accelerations present, no decelerations Bufalo: 2 contractions/10 minutes Assessment/Plan Abrial Douglas Garcia is a 23 year old @ 34w5d by LMP c/w 8w1d US, admitted with concern for labor as a ROBER form [place]. Her has been notable for: - History of delivery (failure to progress, second stage) - H/o hemorrhage requiring blood transfusion, Bakri balloon - Anemia - GCT elevated, normal GTT - Factor V Leiden heterozygote - Rubella equivocal - Migraines # C/f Labor Presented with painful uterine contractions to [place]. Workup at outside hospital concerning for possible increasing cervical effacement so transfer was recommended for higher level NICU cares. At presentation to [facility], infectious workup unremarkable including negative wet [...] and discussed with Dr. Claus Zacarias MD Foundry Worker PGY-3 01/29/24 11:02 AM Associated attestation - Claus Herman MD - 01/29/2024 11:39 AM CDT Physician Attestation I saw this patient with the resident and agree with the resident/fellow's findings and plan of careas documented in the note. Weems findings: Patient is a 23 YO at 34w5d who presented as transport from [facility] last evening for concerns of threatened labor [...] OK for OP management and delivery at [place] after 35 weeks. Likely discontinue tomorrow am. [...] on exam, still posterior. Lev Alejandro MD LAUNDRY BAG PUNCH OPERATOR PGY-3 01/29/2024 7:15 AM documented in this encounter H&P Notes * Lev Alejandro MD - 01/28/2024 11:34 PM CDT Images from the original note were not included. Antepartum History and Physical January 29, 2024 Sdi Garcia [id number] HPI Sid Garcia is a 23 year old at 34w4d by LMP c/w 8w1d US who presents as a transfer ofcare from [facility] with concerns for labor. She started [...] tablet 1 tablet 1 tablet Oral Daily Lve Alejandro MD prochlorperazine (COMPAZINE) tablet 10 mg [...] flush 3 mL 3 mL Intracatheter Q8H eLv Alejandro MD sodium chloride (PF) 0.9% PF [...] Activity: Sufficiently Active (08/17/2023) Received from [facility] Exercise Vital Sign Days of Exercise per Week: 5 days Minutes of Exercise per Session: 60 min Stress: No Stress Concern Present (07/14/2022) Received from [facility] [place] [facility] Occupational Health - Occupational Stress Questionnaire Feeling of Stress : Only a little Social Connections: Socially Isolated (07/14/2022) Received from [facility] Social Connection and Isolation Panel [NHANES] Frequency of Communication with Friends and Family: More than three times a week Frequency of Social Gatherings with Friends and Family: Once a week Attends [employer] Services: Never Active Member of Clubs or [...] 150 bpm, moderate variability, accelerations present, nodecelerations Bufalo: 3-4 contractions in 10 minutes Impression: Category [...] Ketones Urine 100 (A) Negative mg/dL Specific [place] Urine 1.009 1.003 - 1.035 Blood Urine [...] Abnormality Status --------- ------ Adult Type and Screen[[id number]] Final result Please view results for these tests on the individual orders. Adult Type and Screen Result Value Ref Range ABO/RH(D) O POS Antibody Screen Negative Negative SPECIMEN EXPIRATION DATE [id number] Imaging Not available in system. Assessment/Plan 23 year old at 34w5d by LMP consistent with 8w1d US, transferred to [facility] for NICU cares in the setting [...] course - BMZ: s/p first dose at [place] 01/27 at 2108 - Magnesium not indicated [...] supervision of Dr. Herman. Lev Alejandro MD LAUNDRY BAG PUNCH OPERATOR PGY-3 01/29/2024 4:34 AM Associated attestation - Claus Herman MD - 01/29/2024 11:33 AM CDT Physician Attestation I did not see the patient on this date. [facility] [...] of care. * Provider Notification - Radha Mendoza RN - 01/30/2024 7:01 AM CDT 01/30/24 [...] PM CDT Patient arrived via ambulance from [facility] at 2255 and admitted to room [...] Procedure Name Priority Date/Time Associated Diagnosis Comments [facility] US COMPREHENSIVE SINGLE Routine 01/30/2024 [...] ? Study Date: ??01/30/2024 7:08am Pat. NO: ??[id number] ?Referring ??MD: ROSA BARBA Site: ? Machine Biller: Vicky Alvarado RDMS : ??2000 ?Age: ?? 23 ----- INDICATION ----- Inpatient. labor. METHOD ----- [facility] ANTEPARTUM inpatient exam. Transabdominal ultrasound examination. [...] lb 15 ?oz EFW by ? Hadlock ([id number]) Head / Face / Neck Biometry: Zoning Technician ?4.3 ? mm CM ? 6.3 ? [...] view. RVOT view. LVOT view. 3-vessel view. 9-cavnoh-bnpezct view. Situs. Aortic arch view. Bicaval view. [...] GARCIA Study Date: 01/30/2024 7:08am Pat. NO: [id number] Referring MD: ROSA BARBA Site: Machine Biller: Vicky Alvarado RDMS : 2000 Age: 23 ----- INDICATION ----- Inpatient. labor. METHOD ----- [facility] ANTEPARTUM inpatient exam. Transabdominal ultrasound examination.View: [...] EFW (lb,oz) 5 lb 15oz EFW by Hadlock([id number]) Head / Face / Neck Biometry: Zoning Technician 4.3mm CM 6.3mm Nasal bone 10.4mm ANATOMY ----- The following structures appear normal: Head / Neck Cranium. Head size. Head shape.Lateral ventricles. Choroid plexus. Midline falx. Cavum septi pellucidi.Cerebellum. Cisterna magna. Parenchyma. Thalami. Vermis. Neck. Face Lips. Profile. Nose. Maxilla.Mandible. Orbits. Lens. Heart / Thorax 4-chamber view. RVOT view. LVOT view.3-vessel view. 2-ahxoew-zopkzcf view. Situs. Aortic arch view. Bicavalview. Ductal [...] fluid volume appeared normal. Jessa Zacarias MD [facility] US ORDERABLE S * (ABNORMAL) CBC with platelets (01/29/2024 10:06 AM CDT) [facility] Signature WBC Count 9.9 4.0 - [...] LAB - BLOOD ORDERABL ES UR LABORATORY [facility] Acute Care Lab [facility]0 [facility], [address] [place] [phone] * Adult Type and Screen (01/29/2024 12:56 AM CDT) ABO/RH(D) O POS 01/29/2024 12:34 AM CDT UR BLOOD BANK Antibody Screen Negative Negative 01/29/2024 12:34 AM CDT UR BLOOD BANK SPECIMEN EXPIRATION DATE [id number] 01/29/2024 12:34 AM CDT UR BLOOD BANK Blood STRUCTURE OF RIGHT UPPER LIMB / Unknown Venipuncture / Unknown 01/29/2024 12:56 AM CDT 01/29/2024 1:02 AM CDT Lev Alejandro MD LAB - BLOOD BANK RICHARD T ORDER Performing Organization Address [facility]/ZIP Co de Phone Number UR BLOOD BANK [facility] Blood Components Lab [address] [place] [address], Room [place] [phone] * (ABNORMAL) UA with Microscopic reflex to [...] 01/29/2024 1:05 AM CDT UR LABORATORY Specific [place] Urine 1.009 1.003 - 1.035 01/29/2024 1:05 [...] LAB - URINE ORDERABL ES UR LABORATORY [facility] Acute Care Lab [address] [facility], [address] [place] [address], [facility] * Chlamydia trachomatis/Neisseria gonorrhoeae by PCR (01/29/2024 12:38 AM CDT) Chlamydia Trachomatis Negative Negative 01/29/2024 11:09 AM CDT [facility] Comment: Negative for C. trachomatis rRNA by test pilot mediated amplification. A negative result by test pilot mediated amplification does not preclude the presence of infection because results are dependent on proper and adequate collection, absence of inhibitors and sufficient rRNA to be detected. Neisseria gonorrhoeae Negative Negative 01/29/2024 11:09 AM CDT [facility] Comment:Negative for N. gono rrhoeae rRNA by test pilot mediated amplification. A negative result by test pilot mediated amplification does not preclude the presence of C. trachomatis infection because results are dependent on proper and adequate collection, absence of inhibitors and sufficient rRNA to be detected. Swab CERVIX UTERI STRUCTURE / Unknown Non-blood Collection / Unknown 01/29/2024 12:38 AM CDT 01/29/2024 12:45 AM CDT Lev Alejandro MD LAB - MICRO GENERAL ORDERABLES [facility] Inf. Diseases Diag. Lab [address] [facility], [address] [place] [address], [facility] * (ABNORMAL) Wet [...] LAB - MICRO GENERAL ORDERABLES UR LABORATORY [facility] Acute Care Lab [address] [facility], [address] [place] [address], [facility] * Group B [...] LABORATORY - 01/29/2024 8:46 PM CDT The [employer] Xpert GBS LB Assay, performed on the [employer], is a qualitative in vitro diagnostic [...] settings. The device is not intended for gnkcb-js-gqhq use. Lev Alejandro MD LAB - MICRO GENERAL ORDERABLES [facility] Inf. Diseases Diag. Lab [address] [facility], [address] [place] [address] * HIV-1 Antibody (External Result) (07/27/2023 12:27 AM CDT) HIV 1&2 Antibody (External) Negative Nonreactive [facility] 07/27/2023 12:2 7 AM CDT Patient Reported LAB - HIM EXTERNAL R ESULT [facility] [address] [place], [place] [id number] [place] [address] * Hepatitis B Surface Antigen (External Result) (07/27/2023 12:27 AM CDT) Hepatitis B Surface Antigen (External) Negative [facility] 07/27/2023 12:2 7 AM CDT Patient Reported LAB - HIM EXTERNAL R ESULT [facility] [address] [place] [address], [facility] [phone] * Rubella Antibody IgG (External Result) (07/27/2023 12:27 AM CDT) Rubella Antibody IgG (External) Immune Nonreactive [facility] 07/27/2023 12:2 7 AM CDT Patient Reported LAB - HIM EXTERNAL R ESULT Performing Organization Address City/[facility]/ZIP Co de Phone Number [facility] [address] [place] [address], [facility] [phone] documented in this encounter Visit Diagnoses Diagnosis [...] Ledy Allred RN)2004 ($Given - Provider: Radha Mendoza, ENOCH) 0840 [...] Antepartum documented in this encounter Care Teams Paste Up Worker Relationship Specialty Start Date End Date No Ref-Primary, Physician PCP - General 06/19/19 01/28/[address] [facility] [address] [place] [address] PCP - General Family Medicine 01/29/24 documented as of this encounter
--- OUTSIDE RECORDS SUMMARY | 2024-02-03 00:37 | XMS_ITS | Referral Summary ---
Author Organization [facility] Address [address] [place] [address] Care Team Providers Care Sales Training Coordinator Name Role Phone Elsewhere, Pcp Primary Care Provider Unavailabl e Source Comments Patient records contain information from all sites at [facility]. For routine questions regarding patient records, call [phone] during business hours, M-F 8:00 AM - 5:00 PM Central Time. Record requests for emergency care only can be directed to [phone] at any time.[facility] Encounters Date Type Department Care Team Description 01/11/2024 5:07 PM CDT - 01/11/2024 6:48 PM CDT [facility] [address] [place] [phone] Alvino Christianson P.A.-C., P.A. Pharyngitis Acute (Primary Dx) Discharge Disposition: Home or Self Care 12/06/2023 6:50 PM CDT - 12/06/2023 7:30 PM CDT [facility] [address] [place] [phone] Benny Cuevas M.D. Migraine Headache (Primary Dx); 27 Weeks Gestation (HCC) Discharge Disposition: Home or Self Care 12/06/2023 6:30 PM CDT Office Visit Urgent Care, [facility], in [place], [place] [address] [place] [phone] Ana Laura Block P.A.-C., P.A. Procedure And [...] Dispensed Refills Start Date End Date Status lykelax-Rp-kzir-FA (VINATE ONE) 60 mg iron-1 mg per [...] drink = 0.6 oz pur e alcohol) [facility] Utilities Answer Date Recorded In the past 12 months has e [employer], [employer], or water [employer] threatened to shut off services in your [...] How often do you attend chur or baptist services? Never 07/14/2022 Do you [...] medical care, and heating? Somewhat hard 07/14/2022 [facility] - Occupational Stress [...] your living situation today? I have a [facility] place to live 08/17/2023 Education Answer [...] P.ADedra LAB M ICROBIOLOGY - GENERAL ORDERABLES [facility] [address] [place] [address], [facility] NPRG [facility] [address] [place] [address] from Last 3 Months Care Teams Sales Training Coordinator Relationship Specialty Start Date End Date Elsewhere, Pcp PCP - General 08/30/21
--- OUTSIDE RECORDS SUMMARY | 2024-02-03 00:37 | XMS_ITS | Encounter Summary ---
Author Organization [facility] Address [address] [place] [address]. [place] [address] Care Team Providers Care Risk Management Analyst Name Role Phone Shalonda Barrett MD Primary [...] on filedocumented in this encounter Care Teams Risk Management Analyst Relationship Specialty Start Date End Date Shalonda Barrett MD [facility] & [address] [address] PCP - General Family Medicine 01/29/24 documented as of this encounter
--- OUTSIDE RECORDS SUMMARY | 2024-02-03 00:37 | XMS_ITS | Referral Summary ---
Author Organization [facility] Address [address] [place] [address]. [place] [address] Care Team Providers Care Curbing Stonecutter Name Role Phone Shalonda Barrett MD Primary Care Provider + Encounters Date Type Department Care Team Description 01/28/2024 10:53 PM CDT - 01/30/2024 9:38 AM CDT Hospital Encounter [facility] [address] [place] [address] [place]ALAD[place] [phone] Claus Herman MD Discharge Disposition: Home or Self Care 01/29/2024 11:59 PM CDT Anesthesia Event [facility] [address] [place] [address] [place] [phone] Claus House MD 01/29/2024 Travel 01/28/2024 Hospital Encounter [facility] [address] [place] [address] [place] [phone] Claus Herman MD from Last 3 Months [...] CDT Oxygen Saturation 96% 06/19/2019 11:22 PM MANAGEMENT ADVISOR Inhaled Oxygen Concentration - - Weight 60.9 kg (134 lb 3.2 oz) 01/29/2024 7:35 A M CDT Height 162.6 cm (5' 4) 06/19/2019 8:51 PM MANAGEMENT ADVISOR Body Mass Index 23.04 06/19/2019 8:51 PM MANAGEMENT ADVISOR Plan of Treatment Not on file Procedures Procedure Name Priority Date/Time Associated Diagnosis Comments [facility] COMPREHENSIVE SINGLE Routine 01/30/2024 8:25 AM CDT [...] ? Study Date: ??01/30/2024 7:08am Pat. NO: ??[id number] ?Referring ??: ROSA BARBA Site: ? Gas Operator: Vicky Alvarado RDMS : ??2000 ?Age: ?? 23 ----- INDICATION ----- Inpatient. labor. METHOD ----- [facility] ANTEPARTUM inpatient exam. Transabdominal ultrasound examination. View: [...] lb 15 ?oz EFW by ? Hadlock ([id number]) Head / Face / Neck Biometry: Feed Mill Operator ?4.3 ? mm CM ? 6.3 [...] view. RVOT view. LVOT view. 3-vessel view. 3-gsgsns-ngruypv view. Situs. Aortic arch view. Bicaval view. [...] DONAHUE Study Date: 01/30/2024 7:08am Pat. NO: [id number] Referring MD: ROSA BARBA Site: Gas Operator: Vicky Alvarado RDMS : 2000 Age: 23 ----- INDICATION ----- Inpatient. labor. METHOD ----- [facility] ANTEPARTUM inpatient exam. Transabdominal ultrasound examination.View: Sufficient [...] EFW (lb,oz) 5 lb 15oz EFW by Hadlock([id number]) Head / Face / Neck Biometry: Feed Mill Operator 4.3mm CM 6.3mm Nasal bone 10.4mm ANATOMY ----- The following structures appear normal: Head / Neck Cranium. Head size. Head shape.Lateral ventricles. Choroid plexus. Midline falx. Cavum septi pellucidi.Cerebellum. Cisterna magna. Parenchyma. Thalami. Vermis. Neck. Face Lips. Profile. Nose. Maxilla.Mandible. Orbits. Lens. Heart / Thorax 4-chamber view. RVOT view. LVOT view.3-vessel view. 1-jzojhg-crjseow view. Situs. Aortic arch view. Bicavalview. Ductal [...] fluid volume appeared normal. Jessa Zacarias MD [facility] US ORDERABLE S * (ABNORMAL) CBC with platelets (01/29/2024 10:06 AM CDT) [facility] WBC Count 9.9 4.0 - 11.0 [...] LAB - BLOOD ORDERABL ES UR LABORATORY [facility] Acute Care Lab [address] [facility], [address] [place] [address] * Adult Type and Screen (01/29/2024 12:56 AM CDT) ABO/RH(D) O POS 01/29/2024 12:34 AM CDT UR BLOOD BANK Antibody Screen Negative Negative 01/29/2024 12:34 AM CDT UR BLOOD BANK SPECIMEN EXPIRATION DATE [id number] 01/29/2024 12:34 AM CDT UR BLOOD BANK Blood STRUCTURE OF RIGHT UPPER LIMB / Unknown Venipuncture / Unknown 01/29/2024 12:56 AM CDT 01/29/2024 1:02 AM CDT Lev Alejandro MD LAB - BLOOD BANK RICHARD T ORDER UR BLOOD BANK [facility] [place] [facility] Lab [address] [facility], [address] [place] [address], [facility] * (ABNORMAL) UA with Microscopic reflex [...] 01/29/2024 1:05 AM CDT UR LABORATORY Specific [place] Urine 1.009 1.003 - 1.035 01/29/2024 1:05 [...] LAB - URINE ORDERABL ES UR LABORATORY [facility] Acute Care Lab [address] [facility], [address] [place] [address] * Chlamydia trachomatis/Neisseria gonorrhoeae by PCR (01/29/2024 12:38 AM CDT) Chlamydia Trachomatis Negative Negative 01/29/2024 11:09 AM CDT [facility] Comment: Negative for C. trachomatis rRNA by matcher offbearer mediated amplification. A negative result by matcher offbearer mediated amplification does not preclude the presence of infection because results are dependent on proper and adequate collection, absence of inhibitors and sufficient rRNA to be detected. Neisseria gonorrhoeae Negative Negative 01/29/2024 11:09 AM CDT [facility] Comment:Negative for N. gono rrhoeae rRNA by matcher offbearer mediated amplification. A negative result by matcher offbearer mediated amplification does not preclude the presence of C. trachomatis infection because results are dependent on proper and adequate collection, absence of inhibitors and sufficient rRNA to be detected. Swab CERVIX UTERI STRUCTURE / Unknown Non-blood Collection / Unknown 01/29/2024 12:38 AM CDT 01/29/2024 12:45 AM CDT Lev Alejandro MD LAB - MICRO GENERAL ORDERABLES [facility] Inf. Diseases Diag. Lab [address] [facility], [address] [place] [address] * (ABNORMAL) Wet prep (01/29/2024 12:38 AM [...] LAB - MICRO GENERAL ORDERABLES UR LABORATORY [facility] Acute Care Lab [address] [facility], [address] [place] [address], [facility] * Group B strep PCR [...] Xpert GBS LB Assay, performed on the [employer]?? Instrument Systems, is a qualitative in vitro [...] settings. The device is not intended for trafc-sn-vrwy use. Lev Alejandro MD LAB - MICRO GENERAL ORDERABLES [facility] Inf. Diseases Diag. Lab [address] [facility], [address] [place] [address], [facility] * HIV-1 Antibody (External Result) (07/27/2023 12:27 AM CDT) HIV 1&2 Antibody (External) Negative Nonreactive [facility] 07/27/2023 12:2 7 AM CDT Patient Reported LAB - HIM EXTERNAL R ESULT [address] [address], [facility] [phone] from Last 3 Months or Most Recently Relevant to Health Maintenance Advance Directives For more information, please contact: [phone] * Full Code (Latest Code Status on File) Date Activated Date Inactivated Comments 01/29/2024 12:33 AM 01/30/2024 11:44 AM All basic and advanced life-sustaining interventions are performed as appropriate Question Answer Comments Code status determined by: Discussion with froylane nt/ legal decision maker Care Teams Curbing Stonecutter Relationship Specialty Start Date End Date Shalonda Barrett MD [facility] [address] [place] [address] PCP - General Family Medicine 01/29/24
--- OUTSIDE RECORDS SUMMARY | 2024-02-03 00:38 | XMS_ITS | Encounter Summary ---
Author Organization [facility] Address [address] [place] [address] Care Team Providers Care Casting Repairer Name Role Phone Elsewhere, Pcp Primary Care Provider Unavailabl e Encounter Details Date Type Department Care Team (Late st Contact Info) Description 12/06/2023 6:30 PM CDT Office Visit Urgent Care, [facility], in [place], [place] [address] [place] [address] Ana Laura Block, PDuc-Amena., P.A. [address] [place] [phone] Procedure And Treatment Not Carried Out Due To Patient Leaving Prior To Being Seen By Health Care Provider (Primary Dx) Discharge Disposition: Home or Self Care Social History Tobacco Use Types Packs/Day Years Used Date Smoking Tobacco: Never Passive Smoke Exposure: Never Smokeless Tobacco: Never Alcohol Use Standard Drinks/Week Comments No 0 (1 standard drink = 0.6 oz pur e alcohol) [facility] Utilities Answer Date Recorded In the past 12 months has [employer], gas, oil, or water [employer] threatened to shut off services in your [...] often do you attend chur ch or holiness services? Never 07/14/2022 Do you belong to any clubs o r organizations such as sabianist groups, unions, fraternal or athletic groups, or [...] Somewhat hard 07/14/2022 [facility] [place] of Occupat ional Health - Occupational Stress [...] your living situation today? I have a [facility] place to live 08/17/2023 Education Answer Date [...] Primary documented in this encounter Care Teams Casting Repairer Relationship Specialty Start Date End Date Elsewhere, Pcp PCP - General 08/30/21 documented as of this encounter
--- OUTSIDE RECORDS SUMMARY | 2024-02-03 00:38 | XMS_ITS | Clinical Summary ---
Author Organization [facility] Address [place], [place] [address] Care Team Providers Care Enrollment Services Vice President Name Role Phone [facility] Primary Care Pr ovider Allergies No [...] Relation Name Comments Bipolar disorder Brother 1 Colerain Thyroid Disease Brother 1 Eran Good Health [...] Comments Blood Pressure 118/72 06/30/2022 2:37 PM GOLF STUD RIVETER Pulse 83 06/30/2022 2:37 PM GOLF STUD RIVETER Temperature 36.9 ??C (98.4 ??F) 12/25/2021 4:00 PM CD T Respiratory Rate 16 12/25/2021 4:00 PM CDT Oxygen Saturation 98% 12/25/2021 4:00 PM CDT Inhaled Oxygen Concentration - - Weight 52.2 kg (115 lb) 06/30/2022 2:37 PM GOLF STUD RIVETER Height 162.6 cm (5' 4) 12/25/2021 4:00 [...] Procedure Name Priority Date/Time Associated Diagnosis Comments AUTO DRIVER THIN PREP PAP SCREEN IMAGED Routine 03/24/2023 12:00 PM GOLF STUD RIVETER from Last 3 Months or Most Recently Relevant to Health Maintenance Results * AUTO DRIVER THIN PREP PAP SCREEN IMAGED (03/24/2023 12:00 PM GOLF STUD RIVETER) Case Report Gynecologic Cytology Report ? Case: [id number] ? Authorizing Provider: ??Harmony Colon ?Collected: ? 03/24/2023 1200 ? MD Lennie ? Ordering Location: ? [facility] ?Received: ?03/28/2023 1655 ? First Screen: ?Nino Dimas ? Specimen: ?AUTO DRIVER ThinPrep Vial Screening, Cervical ? 04/07/2023 1:26 PM GOLF STUD RIVETER [facility] INTERPRETATION/ RESULT NEGATIVE FOR INTRAEPITHELIAL LESION OR MALIGNANCY (NIL) (none) 04/07/2023 1:26 PM GOLF STUD RIVETER [facility] IMEN ADEQUACY Satisfactory for evaluation Endocervical component present 04/07/2023 1:26 PM GOLF STUD RIVETER [facility] HPV REQUEST HPV not requested 2022 1:26 PM GOLF STUD RIVETER [facility] EN[facility] Date of LMP 03/05/2023 04/07/2023 1:26 PM GOLF STUD RIVETER [facility] ENTRAL LABORATORY Abnormal Pap or Ola Bx in last 5 years No 04/07/2023 1:26 PM GOLF STUD RIVETER [facility] ENTRAL LABORATORY Menstrual Status Irregular Periods 04/07/2023 1:26 PM GOLF STUD RIVETER [facility] Ola Bx Done Today No 04/07/2023 1:26 PM GOLF STUD RIVETER [facility] Additional Information 04/07/2023 1:26 PM GOLF STUD RIVETER [facility] Comment: Interpreted at [facility] - [address] [place] [id number] Automated Review Successful 04/07/2023 1:26 PM GOLF STUD RIVETER [facility] Comment:Specimen processed s uccessfully by automated musical performer device, ThinPrep Imaging System, [employer] Note The pap test is a screening technique, not a diagnostic procedure. It is used primarily to screen for squamous cancers and precursor lesions. Published studies have shown that it is subject to both false negative and false positive results. The pap test should not be used as the sole means to diagnose or exclude pre-malignant and malignant lesions. 04/07/2023 1:26 PM GOLF STUD RIVETER [facility] Other (Cervical) 03/24/2023 12:00 PM GOLF STUD RIVETER 03/28/2023 4:55 PM GOLF STUD RIVETER Harmony Colon MD PATHOLOGY/ CYTOLOGY [facility] [employer] [facility] [address] [place] [address], [place] from Last 3 Months or Most Recently Relevant to Health Maintenance Care Teams Enrollment Services Vice President Relationship Specialty Start Date End Date Clinic, [facility] [address] [place] [address] PCP - General 12/19/23
--- OUTSIDE RECORDS SUMMARY | 2024-02-03 00:38 | XMS_ITS | Encounter Summary ---
Author Organization [facility] Address [address] [place] [address] Care Team Providers Care High School Science Tutor Name Role Phone Elsewhere, Pcp Primary Care [...] CDT - 12/06/2023 7:30 PM CDT Emergency [facility] [address] [place] [phone] Benny Cuevas M.D. [address] [place] [address] Migraine Headache (Primary Dx); 27 Weeks Gestation (HCC) Discharge Disposition: Home or Self Care Social History Tobacco Use Types Packs/Day Years Used Date Smoking Tobacco: Never Passive Smoke Exposure: Never Smokeless Tobacco: Never Alcohol Use Standard Drinks/Week Comments No 0 (1 standard drink = 0.6 oz pur e alcohol) [facility] Utilities Answer Date Recorded In the [...] any clubs o r organizations such as pentecostal groups, unions, fraternal or athletic groups, or [...] medical care, and heating? Somewhat hard 07/14/2022 [facility] [place] of Occupat ional Health - Occupational Stress [...] your living situation today? I have a [facility] place to live 08/17/2023 Education Answer [...] you are . Follow up with your small business banking officer if your headache isn't improving by tomorrow. * Attachments The following attachments cannot be sent through Care Everywhere. * Migraine Headache (Telugu) documented in this encounter Medications at Time of Discharge Medication Sig Dispensed Refills Start Date End Date docosahexaenoic acid 200 mg capsule Take by mouth. 07/27/2023 ferrous sulfate (IRON ORAL) Take by mouth. ondansetron ODT (ZOFRAN-ODT) 4 mg disintegrating tablet DISSOLVE ONE TABLET BY MOUTH EVERY 8 HOURS NEEDED FOR NAUSEA AND VOMITING 07/27/2023 fjujkfi-Lx-yulf-FA (VINATE ONE) 60 mg iron-1 mg per [...] 1. Migraine Headache 2. 27 Weeks Gestation ([facility] ED Disposition Discharge ED Prescriptions Medication Sig Dispense Start Date End Date Auth. Provider promethazine (Phenergan) 25 mg tablet Take 1 tablet (25 mg total) by mouth every 6 (six) hours as needed for nausea or vomiting (Headache). 15 tablet 12/06/2023 -- Benny Cuevas M.D. Notes are completed with voice recognition dictation software. Errors are generally corrected in real-time. Please message me via B[facility] In Basket if you note any areas [...] R.N.) documented in this encounter Care Teams High School Science Tutor Relationship Specialty Start Date End Date Elsewhere, Pcp PCP - General 08/30/21 documented as of this encounter
== END 2024-01-28 21:55 | disposition home or self-care (01) ==
LOC: AMB 02-03 00:35
PROVIDERS: PCP Family Medicine; Visit Provider Family Medicine
DX: O60.03 Preterm labor without delivery, third trimester (principal); Z3A.34 34 weeks gestation of pregnancy
CPT/HCPCS: A0425; A0429

== ENCOUNTER 2024-02-01 11:32 | Outpatient (CLI) | payer MEDICAID, SELFPAY ==
--- OUTSIDE RECORDS SUMMARY | 2024-02-01 11:35 | XMS_ITS | Referral Summary ---
Author Organization [facility] Address [address] [place] [address]. [place] [address] Care Team Providers Care Terrazzo Layer Name Role Phone Shalonda Barrett MD Primary Care Provider + Encounters Date Type Department Care Team Description 01/28/2024 10:53 PM CDT - 01/30/2024 9:38 AM CDT Hospital Encounter [facility] [address] [place] [address] [place] [phone] Claus Herman MD Discharge Disposition: Home or Self Care 01/29/2024 11:59 PM CDT Anesthesia Event [facility] [address] [place] [address] [place] [phone] Claus House MD 01/29/2024 Travel 01/28/2024 Hospital Encounter [facility] [address] [place] [address] [place] [phone] Claus Herman MD from Last 3 Months Allergies No known active allergies Medications Medication Sig Dispensed Refills Start Date End Date Status metoclopramide (REGLAN) 10 MG tablet Take 1 tablet (10 mg) by mouth 3 times daily as needed (headache or nausea) 20 tablet 1 06/19/2019 Active Ferrous Gluconate (IRON 27 PO) Take 2 tablets by mouth every other day. Active Vit-Fe Fumarate-FA ( MULTIVITAMIN PLUS IRON) 27-1 MG TABS Take 1 tablet by mouth daily. Active SUMAtriptan (IMITREX) 25 MG tablet Take by mouth at onset of headache for migraine. Active Active Problems Problem Noted Date Diagnosed Date uterine contractions 01/29/2024 Threatened labor, third trimester 2023 34 weeks gestation of 01/29/2024 with history of section, ante 01/29/2024 Estimated Date of Delivery Comme nts Yes 03/06/2024 Based on last me nstrual period of 05/31/2023 (Exact Date) Social History Tobacco Use Types Packs/Day Years Used Date Smoking Tobacco: Never Assessed Adolescent Education Answer Date Record ed Getting School Help Needed Not on file 02/22 Food Insecurity Answer Date Recorded Within the past 12 months, d id you worry that your food would run out before you got money to buy more? No 01/28/2024 Within the past 12 months, d id the food you bought just not last and you didn? t have money to get more? No 01/28/2024 Housing Stability Answer Date Recorded Do you have housing? (Abbeyin g is defined as stable permanent housing and does not include staying ouside in a car, in a tent, in an abandoned building, in an overnight half-way, or couch-surfing.) Yes 01/28/2024 Are you worried about losing your housing? No 01/28/2024 Financial Resource Strain Answer Date R ecorded Within the past 12 months, h ave you or your family members you live with been unable to get utilities (heat, electricity) when it was really needed? No 01/28/2024 Transportation Needs Answer Date Record ed Within the past 12 months, h as lack of transportation kept you from medical appointments, getting your medicines, non-medical meetings or appointments, work, or from getting things that you need? No 01/28/2024 Interpersonal Safety Answer Date Record ed Do you feel physically and e motionally safe where you currently live? Yes 01/28/2024 Within the past 12 months, h ave you been hit, slapped, kicked or otherwise physically hurt by someone? No 01/28/2024 Within the past 12 months, h ave you been humiliated or emotionally abused in other ways by your partner or ex-partner? No 01/28/2024 Estimated Date of Delivery Comme nts Yes 03/06/2024 Based on last me nstrual period of 05/31/2023 (Exact Date) Sex and Gender Information Value Date Recorded Sex Assigned at Not on file Gender Identity Not on file Sexual Orientation Not on file Last Filed Vital Signs Vital Sign Reading Time Taken Comments Blood Pressure 107/56 01/30/2024 6:50 AM CDT Pulse 96 01/28/2024 11:12 PM CDT Temperature 36.8 ??C (98.2 ??F) 01/30/2024 6:50 AM CD T Respiratory Rate 16 01/30/2024 6:50 AM CDT Oxygen Saturation 96% 06/19/2019 11:22 PM INSTALLATION TECHNICIAN Inhaled Oxygen Concentration - - Weight 60.9 kg (134 lb 3.2 oz) 01/29/2024 7:35 A M CDT Height 162.6 cm (5' 4) 06/19/2019 8:51 PM INSTALLATION TECHNICIAN Body Mass Index 23.04 06/19/2019 8:51 PM INSTALLATION TECHNICIAN Plan of Treatment Not on file Procedures Procedure Name Priority Date/Time Associated Diagnosis Comments [facility] COMPREHENSIVE SINGLE Routine 01/30/2024 8:25 AM CDT CBC WITH PLATELETS Routine 01/29/2024 10 :06 AM CDT ABO/RH TYPE AND SCREEN Timed 12:56 AM CDT TYPE AND SCREEN, ADULT Timed 12:56 AM CDT ROUTINE UA WITH MICROSCOPIC REFLEX TO CULTURE STAT 01/29/2024 12:48 AM CDT CHLAMYDIA TRACHOMATIS/NEISSERIA GONORRHOEAE BY PCR STAT 01/29/2024 12:38 AM CDT WET PREPARATION STAT 01/29/2024 12:38 AM CDT GROUP B STREP PCR STAT 01/29/2024 12: 38 AM CDT HIV 1&2 ANTIBODY (EXTERNAL RESULT) Routine 07/27/2023 12:27 AM CDT from Last 3 Months or Most Recently Relevant to Health Maintenance Results * Maternal US Comprehensive Single (01/30/2024 8:25 AM CDT) Anatomical Region Laterality Modality Ultrasound 01/30/2024 7:08 AM CDT Impressions 01/30/2024 8:38 AM CDT IMPRESSION ----- 1. Thomas at 35w 4d gestational age. 2. None of the anomalies commonly detected by ultrasound were evident in the limited anatomic survey as described above. 3. Growth parameters and estimated weight were appropriate for gestational age. 4. The amniotic fluid volume appeared normal. Narrative 01/30/2024 8:38 AM CDT ?Comprehensive ----- Pat. Name: SID DONAHUE ? Study Date: ??01/30/2024 7:08am Pat. NO: ??[id number] ?Referring ??: ROSA BARBA Site: ? Auto Electrical Technician: Vicky Alvarado RDMS : ??2000 ?Age: ?? 23 ----- INDICATION ----- Inpatient. labor. METHOD ----- [facility] inpatient exam. Transabdominal ultrasound examination. View: Sufficient ----- Thomas . Number of fetuses: 1 DATING ----- ? Date ?Details ?Gest. age ?TONYA U/S ? 01/30/2024 ? based upon AC, BPD, Femur, HC ?35 w + 4 d ? 03/01/2024 Assigned dating ?based on ultrasound (AC, BPD, Femur, HC), selected on 01/30/2024 ?35 w + 4 d ? 03/01/2024 GENERAL EVALUATION ----- Cardiac activity present. FHR 144 bpm. movements: present. Presentation: cephalic Placenta: Posterior Umbilical cord: 3 vessel cord Amniotic fluid: Amount of AF: normal. MVP 6.2 cm BIOMETRY ----- BPD ? 90.1 ?mm ? 36w 3d ?Hadiza HONG ? 110.5 ?mm ? 33w 2d ? Nicolaides HC ? 318.6 ?mm ? 35w 6d ? Hadlock Cerebellum tr ?47.2 ?mm ? -/- ?Nicolaides AC ? 319.3 ?mm ? 35w 6d ?67% ?Hadlock Femur ?66.3 ?mm ? 34w 1d ? Hadlock Humerus ? 60.1 ? mm ?34w 6d ?Phil Weight Calculation: EFW ?2,687 ?g ?46% ? Hadlock EFW (lb,oz) ?5 lb 15 ?oz EFW by ? Hadlock ([id number]) Head / Face / Neck Biometry: Rn Residential ?4.3 ? mm CM ? 6.3 ? mm Nasal bone ? 10.4 ?mm ANATOMY ----- The following structures appear normal: Head / Neck ? Cranium. Head size. Head shape. Lateral ventricles. Choroid plexus. Midline falx. Cavum septi pellucidi. Cerebellum. Cisterna magna. ? Parenchyma. Thalami. Vermis. ? Neck. Face ? Lips. Profile. Nose. Maxilla. Mandible. Orbits. Lens. Heart / Thorax ?4-chamber view. RVOT view. LVOT view. 3-vessel view. 0-fajyqm-tyyuper view. Situs. Aortic arch view. Bicaval view. Ductal arch view. Superior ? vena cava. Inferior vena cava. Cardiac position. Cardiac size. Cardiac rhythm. ? Right lung. Left lung. Diaphragm. Abdomen ? Abdom. wall. Cord insertion. Stomach. Kidneys. Bladder. Liver. Bowel. Genitals. Spine ?Cervical spine. Thoracic spine. Lumbar spine. Sacral spine. Extremities / Skeleton ?Arms. Right arm. Right hand. Left arm. Left hand. Legs. Right leg. Right foot. Left leg. Left foot. sex: male. MATERNAL STRUCTURES ----- Cervix ?Not visualized Right Ovary ?Visualized Left Ovary ?Visualized RECOMMENDATION ----- See inpatient medical record for details of management plan. The results of the ultrasound were discussed with the patient. Thank-you for the opportunity to participate in the care of this patient. If you have questions regarding today's evaluation or if we can be of further service, please contact the [facility]. anomalies may be present but not detected Procedure Note Claus Herman MD - 01/30/2024 Comprehensive ----- Pat. Name: SID DONAHUE Study Date: 01/30/2024 7:08am Pat. NO: [id number] Referring MD: ROSA BARBA Site: Auto Electrical Technician: Vicky Alvarado RDMS : 2000 Age: 23 ----- INDICATION ----- Inpatient. labor. METHOD ----- [facility] inpatient exam. Transabdominal ultrasound examination.View: Sufficient ----- Thomas . Number of fetuses: 1 DATING ----- DateDetailsGest. age TONYA U/S 01/30/2024ased upon AC, BPD, Femur, HC35 w + 4 d 03/01/2024 Assigned dating based on ultrasound (AC, BPD, Femur, HC),selected on 01/30/2024 35 w + 4 d1 GENERAL EVALUATION ----- Cardiac activity present. FHR 144 bpm. movements: present.Presentation: cephalic Placenta: Posterior Umbilical cord: 3 vessel cord Amniotic fluid: Amount of AF: normal. MVP 6.2 cm BIOMETRY ----- BPD 90.1mm 36w 3dHadlock OFD 110.5mm 33w 2dNicolaides HC 318.6mm 35w 6dHadlock Cerebellum tr 47.2mm -/-Nicolaides AC 319.3mm 35w 6d 67%Hadlock Femur 66.3mm 34w 1dHadlock Humerus 60.1mm 34w 6dJeanty Weight Calculation: EFW 2,687g 46%Hadlock EFW (lb,oz) 5 lb 15oz EFW by Hadlock([id number]) Head / Face / Neck Biometry: Rn Residential 4.3mm CM 6.3mm Nasal bone 10.4mm ANATOMY ----- The following structures appear normal: Head / Neck Cranium. Head size. Head shape.Lateral ventricles. Choroid plexus. Midline falx. Cavum septi pellucidi.Cerebellum. Cisterna magna. Parenchyma. Thalami. Vermis. Neck. Face Lips. Profile. Nose. Maxilla.Mandible. Orbits. Lens. Heart / Thorax 4-chamber view. RVOT view. LVOT view.3-vessel view. 7-cicaem-aiyqids view. Situs. Aortic arch view. Bicavalview. Ductal arch view. Superior vena cava. Inferior vena cava.Cardiac position. Cardiac size. Cardiac rhythm. Right lung. Left lung.Diaphragm. Abdomen Abdom. wall. Cord insertion. Stomach.Kidneys. Bladder. Liver. Bowel. Genitals. Spine Cervical spine. Thoracic spine.Lumbar spine. Sacral spine. Extremities / Skeleton Arms. Right arm. Right hand. Left arm.Left hand. Legs. Right leg. Right foot. Left leg. Left foot. sex: male. MATERNAL STRUCTURES ----- Cervix Not visualized Right Ovary Visualized Left Ovary Visualized RECOMMENDATION ----- See inpatient medical record for details of management plan. The results of the ultrasound were discussed with the patient. Thank-you for the opportunity to participate in the care of this patient.If you have questions regarding today's evaluation or if we can be offurther service, please contact the [facility]. anomalies may be present but not detected IMPRESSION ----- 1. Thomas at 35w 4d gestational age. 2. None of the anomalies commonly detected by ultrasound were evident inthe limited anatomic survey as described above. 3. Growth parameters and estimated weight were appropriate forgestational age. 4. The amniotic fluid volume appeared normal. Jessa Zacarias MD [facility] US ORDERABLE S * (ABNORMAL) CBC with platelets (01/29/2024 10:06 AM CDT) [facility] WBC Count 9.9 4.0 - 11.0 10e3/uL 01/29/2024 10:38 AM CDT [facility] RBC Count 3.50(L) 3.80 - 5.20 10e6/uL 01/29/2024 10:38 AM CDT [facility] Hemoglobin 10.7(L) 11.7 - 15.7 g/dL 01/29/2024 10:38 AM CDT [facility] Hematocrit 32.4(L) 35.0 - 47.0 % 01/29/2024 10:38 AM CDT UR [facility] MCV 93 78 - 100 fL 01/29/2024 10:38 AM CDT UR LAB[facility]ORY MCH 30.6 26.5 - 33.0 pg 01/29/2024 10:38 AM CDT [facility] MCHC 33.0 31.5 - 36.5 g/dL 01/29/2024 10:38 AM CDT UR [facility] RDW 14.4 10.0 - 15.0 % 01/29/2024 10:38 AM CDT [facility] Platelet Count 218 150 - 450 10e3/uL 01/29/2024 10:38 AM CDT UR LAB[facility] Blood STRUCTURE OF RIGHT UPPER LIMB / Unknown Venipuncture / Unknown 01/29/2024 10:06 AM CDT 01/29/2024 10:35 AM CDT Jessa Zacarias MD LAB - BLOOD ORDERABL ES UR LABORATORY [facility] Acute Care Lab [address] [place] [address] * Adult Type and Screen (01/29/2024 12:56 AM CDT) ABO/RH(D) O POS 01/29/2024 12:34 AM CDT UR BLOOD BANK Antibody Screen Negative Negative 01/29/2024 12:34 AM CDT UR BLOOD BANK SPECIMEN EXPIRATION DATE [id number] 01/29/2024 12:34 AM CDT UR BLOOD BANK Blood STRUCTURE OF RIGHT UPPER LIMB / Unknown Venipuncture / Unknown 01/29/2024 12:56 AM CDT 01/29/2024 1:02 AM CDT Lev Alejandro MD LAB - BLOOD BANK RICHARD T ORDER UR BLOOD BANK [facility] [place] [facility] Lab [address] [place] [address], [facility] * (ABNORMAL) UA with Microscopic reflex to Culture (01/29/2024 12:48 AM CDT) Color Urine Yellow Colorless, Straw, Light Yellow, Yellow 01/29/2024 1:05 AM CDT UR LAB[facility]ATORY Appearance Urine Clear Clear 01/29/20 24 1:05 AM CDT UR LAB[facility]ORY Glucose Urine Negative Negative mg/dL 01/29/2024 1:05 AM CDT UR LAB[facility]ATORY Bilirubin Urine Negative Negative 1:05 AM CDT UR LAB[facility]ORY Ketones Urine 100(A) Negative mg/dL 01/29/2024 1:05 AM CDT UR LABORATORY Specific Aiken Urine 1.009 1.003 - 1.035 01/29/2024 1:05 AM CDT UR LAB[facility]ATORY Blood Urine Negative Negative 01/29/2024 1:05 AM CDT UR LAB[facility] pH Urine 7.0 5.0 - 7.0 01/29/2024 1:05 AM CDT UR LAB[facility] Protein Albumin Urine Negative Negative mg/dL 01/29/2024 1:05 AM CDT UR LAB[facility]ATORY Urobilinogen Urine Normal Normal, 2.0 mg/dL 01/29/2024 1:05 AM CDT UR LAB[facility]ORY Nitrite Urine Negative Negative 01/29/2024 1:05 AM CDT UR LAB[facility] Leukocyte Esterase Urine Negative Negative 01/29/2024 1:05 AM CDT UR LAB[facility]ORY Mucus Urine Present(A) None Seen /LPF 01/29/2024 1:05 AM CDT UR LAB[facility]ORY RBC Urine 1 <=2 /HPF 01/29/2024 1:05 AM CDT UR LAB[facility]ORY WBC Urine <1 <=5 /HPF 01/29/2024 1:05 AM CDT UR LABORATORY Squamous Epithelials Urine 1 <=1 /HPF 01/29/2024 1:05 AM CDT UR LAB[facility]ATORY Urine URINE SPECIMEN OBTAINED BY CLEAN CATCH PROCEDURE / Unknown Non-blood Collection / Unknown 01/29/2024 12:48 AM CDT 01/29/2024 12:52 AM CDT Narrative UR LABORATORY - 01/29/2024 1:05 AM CDT Urine Culture not indicated Lev Alejandro MD LAB - URINE ORDERABL ES UR LABORATORY [facility] Acute Care Lab [address] [place] [address] * Chlamydia trachomatis/Neisseria gonorrhoeae by PCR (01/29/2024 12:38 AM CDT) Chlamydia Trachomatis Negative Negative 01/29/2024 11:09 AM CDT [facility] Comment: Negative for C. trachomatis rRNA by leather drier mediated amplification. A negative result by leather drier mediated amplification does not preclude the presence of infection because results are dependent on proper and adequate collection, absence of inhibitors and sufficient rRNA to be detected. Neisseria gonorrhoeae Negative Negative 01/29/2024 11:09 AM CDT [facility] Comment:Negative for N. gono rrhoeae rRNA by leather drier mediated amplification. A negative result by leather drier mediated amplification does not preclude the presence of C. trachomatis infection because results are dependent on proper and adequate collection, absence of inhibitors and sufficient rRNA to be detected. Swab CERVIX UTERI STRUCTURE / Unknown Non-blood Collection / Unknown 01/29/2024 12:38 AM CDT 01/29/2024 12:45 AM CDT Lev Alejandro MD LAB - MICRO GENERAL ORDERABLES [facility] Inf. Diseases Diag. Lab [address] [place] [address] * (ABNORMAL) Wet prep (01/29/2024 12:38 AM CDT) Trichomonas Absent Absent JET 01/29/2024 1:01 AM CDT UR LABORATORY Yeast Absent Absent JET 01/29/2024 1:01 AM CDT UR LAB[facility]ATORY Clue Cells Absent Absent JET 01/29/2024 1:01 AM CDT UR LABORATORY WBCs/high power field 1+(A) None JET 01/29/2024 1:01 AM CDT UR LAB[facility]ATORY Swab VAGINAL STRUCTURE / Unknown Non-blood Collection / Unknown 01/29/2024 12:38 AM CDT 01/29/2024 12:46 AM CDT Lev Alejandro MD LAB - MICRO GENERAL ORDERABLES UR LABORATORY [facility] Acute Care Lab [address] [place] [address], [facility] * Group B strep PCR (01/29/2024 12:38 AM CDT) Group B Strep PCR Negative Negative 024 8:46 PM CDT [facility] Comment:Presumed negative fo r Streptococcus agalactiae (Group B Streptococcus) or the number of organisms may be below the limit of detection of the assay. Swab STRUCTURE OF RECTOVAGINAL SEPTUM / Unknown Non-blood Collection / Unknown 01/29/2024 12:38 AM CDT 01/29/2024 12:46 AM CDT Narrative [facility] - 01/29/2024 8:46 PM CDT The Cepheid Xpert GBS LB Assay, performed on the [employer] Instrument Systems, is a qualitative in vitro diagnostic test designed to detect Group B Streptococcus (GBS) DNA from enriched vaginal/rectal swab specimens, using fully automated, real- time polymerase chain reaction (PCR) with fluorogenic detection of the amplified DNA. Xpert GBS LB Assay testing is indicated as an aid in determining GBS colonization status in antepartum women. This assay does not diagnose or monitor treatment for GBS infections. The Cepheid Xpert GBS LB Assay is intended for use in hospital, reference or state laboratory settings. The device is not intended for [id number] use. Lev Alejandro MD LAB - MICRO GENERAL ORDERABLES [facility] Inf. Diseases Diag. Lab [address] [place] [address], [facility] * HIV-1 Antibody (External Result) (07/27/2023 12:27 AM CDT) HIV 1&2 Antibody (External) Negative Nonreactive [facility] 07/27/2023 12:2 7 AM CDT Patient Reported LAB - HIM EXTERNAL R ESULT [address] [address], [facility] [phone] from Last 3 Months or Most Recently Relevant to Health Maintenance Advance Directives For more information, please contact: [phone] * Full Code (Latest Code Status on File) Date Activated Date Inactivated Comments 01/29/2024 12:33 AM 01/30/2024 11:44 AM All basic and advanced life-sustaining interventions are performed as appropriate Question Answer Comments Code status determined by: Discussion with froylane nt/ legal decision maker Care Teams Terrazzo Layer Relationship Specialty Start Date End Date Shalonda Barrett MD [facility] [address] [place] [address] PCP - General Family Medicine 01/29/24
--- OUTSIDE RECORDS SUMMARY | 2024-02-01 11:35 | XMS_ITS | Clinical Summary ---
Author Organization [place] Address [address] [place] [address]. [place] [address] Care Team Providers Care Occ Med Physician Name Role Phone Shalonda Barrett MD Primary Care Provider + Allergies No known active allergies Medications Medication [...] me nstrual period of 05/31/2023 (Exact Date) Encounters Date Type Department Care Team Description 01/29/2024 11:59 PM CDT Anesthesia Event [facility] [address] [facility] [place] [phone] Claus House MD 01/29/2024 Travel 01/28/2024 10:53 PM CDT - 01/30/2024 9:38 AM CDT Hospital Encounter [facility] [address] [phone] Claus Herman MD Discharge Disposition: Home or Self Care 01/28/[address] [facility] [address] [place] [phone] Claus Herman MD from Last 3 Months Social History Tobacco Use Types Packs/Day Years [...] Answer Date Recorded Do you have housing? (Lynda g is defined as stable permanent housing and does not include staying ouside in a car, in a tent, in an abandoned building, in an overnight penitentiary, or couch-surfing.) Yes 01/28/2024 Are you worried [...] CDT Oxygen Saturation 96% 06/19/2019 11:22 PM BABBITT SPINNER Inhaled Oxygen Concentration - - Weight 60.9 kg (134 lb 3.2 oz) 01/29/2024 7:35 A M CDT Height 162.6 cm (5' 4) 06/19/2019 8:51 PM B[employer]BITT SPINNER Body Mass Index 23.04 06/19/2019 8:51 PM [employer]AB[employer]T SPINNER Plan of Treatment Health Maintenance Due Date Last Done Comments ADVANCE CARE PLANNING 2000 ANNUAL REVIEW OF HM ORDERS 2000 YEARLY PREVENTIVE VISIT 2000 HEPATITIS C SCREENING 2018 PHQ-2 (once per calendar year) 2023 MATERNAL SCREENING DISCUSSION 08/09/2023 OBGCT (OB) 11/15/2023 COVID-19 Vaccine ( season) 2024 INFLUENZA VACCINE (#1) 2024 02/19/2019, 2001 RSV VACCINE (1 - Risk 1-dose series) 01/10/2024 GROUP B STREP SCREENING 02/07/2024 01/29/2024 CHLAMYDIA SCREENING 01/28/2025 01/29/2024 PAP 03/24/2026 03/24/2023 DTAP/TDAP/TD IMMUNIZATION (9 - Td or Tdap) 12/27/2033 12/28/2023, 11/29/2019, 12/25/2012, Additional history exists HEPATITIS B IMMUNIZATION Completed 002, 11/22/2001, 2000, Additional history exists Pneumococcal Vaccine: Pediatrics (0 to 5 Years) and At-Risk Patients (6 to 64 Years) Aged Out 11/22/2001, 2000, 2000 No longer eligible based on patient's age to complete this topic HPV IMMUNIZATION Completed 02/20/2019, 12/25/2012 MENINGITIS IMMUNIZATION Completed 02/20/2019 HIV SCREENING Completed 07/27/2023 RSV MONOCLONAL ANTIBODY Aged Out No l onger eligible based on patient's age to complete this topic Procedures Procedure Name Priority Date/Time Associated Diagnosis Comments [facility] US COMPREHENSIVE SINGLE Routine 01/30/2024 8:25 AM CDT [...] Relevant to Health Maintenance Results * Maternal Comprehensive Single (01/30/2024 8:25 AM CDT) Anatomical [...] 8:38 AM CDT ?Comprehensive ----- Pat. Name: RADHA SID ? Study Date: ??01/30/2024 7:08am Pat. NO: ??[id number] ?Referring ??MD: ROSA BARBA Site: ? [employer] Superintendent: Vicky Alvarado RDMS : ??2000 ?Age: ?? 23 ----- INDICATION ----- Inpatient. labor. METHOD ----- [facility] ANTE[facility] inpatient exam. Transabdominal ultrasound examination. View: [...] BPD ? 90.1 ?mm ? 36w 3d ?Hadlock OFD ? 110.5 ?mm ? 33w 2d ? [...] lb 15 ?oz EFW by ? Hadlock ([id number]) Head / Face / Neck Biometry: Electrical Discharge Machine Operator ?4.3 ? mm CM ? 6.3 ? [...] view. RVOT view. LVOT view. 3-vessel view. 2-vkwcnp-laxfltv view. Situs. Aortic arch view. Bicaval view. [...] - 01/30/2024 Comprehensive ----- Pat. Name: SID GARCIA Study Date: 01/30/2024 7:08am Pat. NO: [id number] Referring MD: ROSA BARBA Site: [facility] [place] Superintendent: Vicky Alvarado RDMS : 2000 Age: 23 ----- INDICATION ----- Inpatient. labor. METHOD ----- [facility]TE[facility] inpatient exam. Transabdominal ultrasound examination.View: Sufficient [...] EFW (lb,oz) 5 lb 15oz EFW by Hadlock([id number]) Head / Face / Neck Biometry: Electrical Discharge Machine Operator 4.3mm CM 6.3mm Nasal bone 10.4mm ANATOMY ----- The following structures appear normal: Head / Neck Cranium. Head size. Head shape.Lateral ventricles. Choroid plexus. Midline falx. Cavum septi pellucidi.Cerebellum. Cisterna magna. Parenchyma. Thalami. Vermis. Neck. Face Lips. Profile. Nose. Maxilla.Mandible. Orbits. Lens. Heart / Thorax 4-chamber view. RVOT view. LVOT view.3-vessel view. 4-eyjcyl-rxrgouq view. Situs. Aortic arch view. Bicavalview. Ductal [...] fluid volume appeared normal. Jessa Zacarias MD [facility] US ORDERABLE S * (ABNORMAL) CBC with platelets (01/29/2024 10:06 AM CDT) [facility] Signature WBC Count 9.9 4.0 - 11.0 10e3/uL [...] Zacarias MD LAB - BLOOD ORDERABL ES Performing Organization Address City/[facility]/ZIP Co de Phone Number UR LABORATORY [facility] Acute Care Lab [facility], Room [address] * Adult Type and Screen (01/29/2024 12:56 AM CDT) ABO/RH(D) O POS 01/29/2024 12:34 AM CDT UR BLOOD BANK Antibody Screen Negative Negative 01/29/2024 12:34 AM CDT UR BLOOD BANK SPECIMEN EXPIRATION DATE [id number] 01/29/2024 12:34 AM CDT UR BLOOD BANK Blood STRUCTURE OF RIGHT UPPER LIMB / Unknown Venipuncture / Unknown 01/29/2024 12:56 AM CDT 01/29/2024 1:02 AM CDT Lev Alejandro MD LAB - BLOOD BANK RICHARD T ORDER Performing Organization Address [facility] Co de Phone Number UR BLOOD BANK [facility] Blood Components Lab [address] [place] [address], Room [place] [phone] * (ABNORMAL) UA with Microscopic reflex to [...] 01/29/2024 1:05 AM CDT UR LABORATORY Specific [place] Urine 1.009 1.003 - 1.035 01/29/2024 1:05 [...] LAB - URINE ORDERABL ES UR LABORATORY [facility] Acute Care Lab [address] [facility], [address] [place] [phone] * Chlamydia trachomatis/Neisseria gonorrhoeae by PCR (01/29/2024 12:38 AM CDT) Chlamydia Trachomatis Negative Negative 01/29/2024 11:09 AM CDT [facility] LABORATORY Comment: Negative for C. trachomatis rRNA by retail chain store area supervisor mediated amplification. A negative result by retail chain store area supervisor mediated amplification does not preclude the presence of infection because results are dependent on proper and adequate collection, absence of inhibitors and sufficient rRNA to be detected. Neisseria gonorrhoeae Negative Negative 01/29/2024 11:09 AM CDT [facility] Comment:Negative for N. gono rrhoeae rRNA by retail chain store area supervisor mediated amplification. A negative result by retail chain store area supervisor mediated amplification does not preclude the presence of C. trachomatis infection because results are dependent on proper and adequate collection, absence of inhibitors and sufficient rRNA to be detected. Swab CERVIX UTERI STRUCTURE / Unknown Non-blood Collection / Unknown 01/29/2024 12:38 AM CDT 01/29/2024 12:45 AM CDT Lev Alejandro MD LAB - MICRO GENERAL ORDERABLES [facility] Inf. Diseases Diag. Lab [address] [facility], [address] [place] [phone], [facility] * (ABNORMAL) Wet prep (01/29/2024 [...] LAB - MICRO GENERAL ORDERABLES UR LABORATORY [facility] Acute Care Lab [address] [facility], [address] [place] [address], [facility] * Group B strep PCR (01/29/2024 [...] LABORATORY - 01/29/2024 8:46 PM CDT The [employer] Xpert GBS LB Assay, performed on the [employer], is a qualitative in vitro diagnostic [...] or monitor treatment for GBS infections. The [employer] Xpert GBS LB Assay is intended for use in hospital, reference or state laboratory settings. The device is not intended for dhypy-cd-eggq use. Lev Alejandro MD LAB - MICRO GENERAL ORDERABLES [facility] Inf. Diseases Diag. Lab [address] [facility], [address] [place] [address] * HIV-1 Antibody (External Result) (07/27/2023 12:27 AM CDT) HIV 1&2 Antibody (External) Negative Nonreactive [facility] 07/27/2023 12:2 7 AM CDT Patient Reported LAB - HIM EXTERNAL R ESULT [facility] [address] [place], [place] [address] [phone] from Last 3 Months or Most Recently Relevant to Health Maintenance Advance Directives For more information, please contact: [phone] * Full Code (Latest Code Status on File) Date Activated Date Inactivated Comments 01/29/2024 12:33 AM 01/30/2024 11:44 AM All basic and advanced life-sustaining interventions are performed as appropriate Question Answer Comments Code status determined by: Discussion with patie nt/ legal decision maker Care Teams Occ Med Physician Relationship Specialty Start Date End Date Shalonda Barrett MD [facility] [address] [place] [address] PCP - General Family Medicine 01/29/24
--- OUTSIDE RECORDS SUMMARY | 2024-02-01 11:36 | XMS_ITS | Encounter Summary ---
Author Organization [facility] Address [address] [place] [address] Care Team Providers Care Bridge Maintainer Name Role Phone Elsewhere, Pcp Primary Care Provider Unavailabl e Encounter Details Date Type Department Care Team (Late st Contact Info) Description 12/06/2023 6:30 PM CDT Office Visit Urgent Care, [facility], in [place], [place] [address] [place] [phone] Ana Laura Block, PDuc-Amena., P.A. [address] [place] [phone] Procedure And Treatment Not Carried Out Due To Patient Leaving Prior To Being Seen By Health Care Provider (Primary Dx) Discharge Disposition: Home or Self Care Social History Tobacco Use Types Packs/Day Years Used Date Smoking Tobacco: Never Passive Smoke Exposure: Never Smokeless Tobacco: Never Alcohol Use Standard Drinks/Week Comments No 0 (1 standard drink = 0.6 oz pur e alcohol) [facility] Utilities Answer Date Recorded In the past 12 months has [employer], gas, oil, or water [employer] threatened to shut off services in your [...] often do you attend chur ch or congregational services? Never 07/14/2022 Do you belong to [...] medical care, and heating? Somewhat hard 07/14/2022 [facility] [place] [facility] Occupat ional Health - Occupational [...] your living situation today? I have a [facility] place to live 08/17/2023 Education Answer [...] Primary documented in this encounter Care Teams Bridge Maintainer Relationship Specialty Start Date End Date Elsewhere, Pcp PCP - General 08/30/21 documented as of this encounter
--- OUTSIDE RECORDS SUMMARY | 2024-02-01 11:36 | XMS_ITS | Referral Summary ---
Author Organization [facility] Address [address] [place] [address] Care Team Providers Care Radiation Oncology Manager Name Role Phone Elsewhere, Pcp Primary Care Provider Unavailabl e Source Comments Patient records contain information from all sites at [facility]. For routine questions regarding patient records, call [phone] during business hours, M-F 8:00 AM - 5:00 PM Central Time. Record requests for emergency care only can be directed to [phone] at any time.[facility] Encounters Date Type Department Care Team Description 01/11/2024 5:07 PM CDT - 01/11/2024 6:48 PM CDT [facility] [address] [place] [phone] Alvino Christianson P.A.-C., P.A. Pharyngitis Acute (Primary Dx) Discharge Disposition: Home or Self Care 12/06/2023 6:50 PM CDT - 12/06/2023 7:30 PM CDT [facility] [address] [place] [phone] Benny Cuevas M.D. Migraine Headache (Primary Dx); 27 Weeks Gestation (HCC) Discharge Disposition: Home or Self Care 12/06/2023 6:30 PM CDT Office Visit Urgent Care, [facility], in [place], [place] [address] [place] [phone] Ana Laura Block P.A.-C., P.A. Procedure And [...] Dispensed Refills Start Date End Date Status [id number] (VINATE ONE) 60 mg iron-1 mg per [...] drink = 0.6 oz pur e alcohol) [facility] Utilities Answer Date Recorded In the past 12 months has e [employer], [employer], or water [employer] threatened to shut off services in [...] How often do you attend chur or rastafari services? Never 07/14/2022 Do you belong to any clubs o r organizations such as presybeterian groups, unions, fraternal or athletic groups, or [...] medical care, and heating? Somewhat hard 07/14/2022 [facility] Occupat ional Health - Occupational [...] your living situation today? I have a [facility] place to live 08/17/2023 Education [...] P.ADedra LAB M ICROBIOLOGY - GENERAL ORDERABLES [facility] [address] [place] [address], [facility] NPRG [facility] [address] [place] [address] from Last 3 Months Care Teams Radiation Oncology Manager Relationship Specialty Start Date End Date Elsewhere, Pcp PCP - General 08/30/21
--- OUTSIDE RECORDS SUMMARY | 2024-02-01 11:36 | XMS_ITS | Encounter Summary ---
Author Organization [place] Address [address] [place] [address]. [place] [address] Care Team Providers Care Retail Service Representative Name Role Phone Shalonda Barrett MD Primary Care Provider + Encounter Details Date Type Department Care Team (Late st Contact Info) Description 01/29/2024 11:59 PM CDT Anesthesia Event [facility] [address] [place] [phone] Claus House MD [address] [place] [phone] Anesthesia Record Procedure Summary Procedure Name Responsible Anesthesiologist Anesthesia Start Time Anesthesia Stop Time LABOR ANALGESIA Events No events on file. Meds * Agents No agents on file. * Blood No blood administrations on file. Lines, Drains, and Airways No LDAs on file. documented in this encounter Social History Tobacco Use Types Packs/Day Years [...] Answer Date Recorded Do you have housing? (Housin g is defined as stable permanent housing and does not include staying ouside in a car, in a tent, in an abandoned building, in an overnight custodial, or couch-surfing.) Yes 01/28/2024 Are you worried [...] on file documented as of this encounter OR Notes * Anesthesia Preprocedure Evaluation - Claus House MD - 01/29/2024 7:31 AM CDT Anesthesia Pre-Procedure Evaluation Patient: Deanna Garcia : 2000 Procedure : Past Medical History: Diagnosis Date Congenital factor VIII disorder (H) Past Surgical History: Procedure Laterality Date SECTION No Known Allergies Social History Tobacco Use Smoking status: Not on file Smokeless tobacco: Not on file Substance Use Topics Alcohol use: Not on file Wt Readings from Last 1 Encounters: 06/19/19 47.6 kg (105 lb) (9%, Z= -1.31)* * Growth percentiles are based on CDC (Girls, 2-20 Years) data. Anesthesia Evaluation ROS/MED HX ENT/Pulmonary: - neg pulmonary ROS Neurologic: Comment: Migraines Cardiovascular: - neg cardiovascular ROS METS/Exercise Tolerance: Hematologic: Comments: - Factor V Leiden heterozygote Musculoskeletal: - neg musculoskeletal ROS GI/Hepatic: - neg GI/hepatic ROS Renal/Genitourinary: - neg Renal ROS Endo: - neg endo ROS Psychiatric/Substance Use: - neg psychiatric ROS Infectious Disease: - neg infectious disease ROS Malignancy: - neg malignancy ROS Other: 23yo at 34w5d here from antepartum with c/f labor - Hx CS x1 (failure to progress, second stage) - H/o PPH requiring blood transfusion, Bakri balloon (+) , ,previous , TOLAC candidate OUTSIDE LABS: CBC: No results found for: WBC, HGB, HCT, PLT BMP: No results found for: NA, POTASSIUM, CHLORIDE, CO2, BUN, CR, GLC COAGS: No results found for: PTT, INR, FIBR POC: No results found for: BGM, HCG, HCGS HEPATIC: No results found for: ALBUMIN, PROTTOTAL, ALT, AST, GGT, ALKPHOS, BILITOTAL,BILIDIRECT, TAVARES OTHER: No results found for: PH, LACT, A1C, VY, PHOS, MAG, LIPASE, AMYLASE, TSH,T4, T3, CRP, SED Anesthesia Plan ASA Status: 2 Consents Postoperative Care Comments: Claus House MD I have reviewed the pertinent notes and labs in the chart from the past 30 days and (re)examined the patient. Any updates or changes from those notes are reflected in this note. documented in this encounter Plan of Treatment Not on file documented as of this encounter Visit Diagnoses Not on filedocumented in this encounter Care Teams Retail Service Representative Relationship Specialty Start Date End Date Shalonda Barertt MD [facility] [place] [address] PCP - General Family Medicine 01/29/24 documented as of this encounter
--- OUTSIDE RECORDS SUMMARY | 2024-02-01 11:36 | XMS_ITS | Encounter Summary ---
Author Organization [place] Address On license of [facility] 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 documented in this encounter Discharge Summaries * Jessa Zacarias MD - 01/30/2024 9:28 AM CDT [facility] Discharge Summary Sid Garcia Age: [age] year old Date of : 2000 Date of Admission: 01/28/2024 Date of Discharge: 01/30/2024 Admitting Physician: Claus Herman MD Discharge Physician: Claus Herman MD Admission Diagnosis: - Intrauterine at 34w4d - uterine contractions - History of delivery (failure to progress, second stage) - H/o hemorrhage requiring blood transfusion, Bakri balloon - Anemia - GCT elevated, normal GTT - Factor V Leiden heterozygote - Rubella equivocal - Migraines Discharge Diagnosis: - Same Procedures: None Consultations: - NICU - Anesthesia - Social Work Medications prior to admission: Medications Prior to Admission Medication Sig Dispense Refill Last Dose Ferrous Gluconate (IRON 27 PO) Take 2 tablets by mouth every other day. 01/27/2024 Vit-Fe Fumarate-FA ( MULTIVITAMIN PLUS IRON) 27-1 MG TABS Take 1 tablet by mouth daily. SUMAtriptan (IMITREX) 25 MG tablet Take by mouth at onset of headache for migraine. Past Month metoclopramide (REGLAN) 10 MG tablet Take 1 tablet (10 mg) by mouth 3 times daily as needed (headache or nausea) 20 tablet 1 Brief History of Presentation: Sid Garcia is a 23 year old at 34w4d by LMP c/w 8w1d US who presents as a transfer of care from [facility] with concerns for labor. She started to notice back pain and frequent abdominal tightening this morning (01/27). She thought it was [place] contractions so continued with her planned activities. The pain continued and she was concerned, so presented to triage at her local hospital. There, she had workup which she notes was concerning for possible UTI, although sample appeared contaminated. There was concern for cervical effacement although cervical dilation remained stable, so she was transferred here for higher level of NICU cares. Prior to transfer, she was given IV ampicillin, IM betamethasone, PO macrobid, and PO nifedipine (for tocolysis, not blood pressure). Abrial notes that she continues to feel intermittent tightening of her abdomen and a constant low back pain. She has not had any vaginal bleeding or leaking of fluid. She has felt great movement. No headaches, vision changes, chest pain, shortness of breath, or RUQ pain. She has not had any recent changes in vaginal discharge, no vaginal itching, and no malodorous discharge. She has no history of hypertensive disorders or of asthma. Antepartum Course: She was admitted for expectant management of threatened labor. Her cervix was 1.5/20/-3 on admission. She received her second dose of betamethasone. Given GA >34 weeks, nifedipine tocolysis was made PRN for symptomatology for labor. She was initially continued on penicillin for GBS unknown status which was discontinued 12h after presentation given stable symptoms. GBS resulted negative. She was on continuous monitoring which was spaced to BID when her contractions spaced. She signed TOLAC and CS consents at presentation. NICU was consulted. On HD#3, she had a reassuring growth US. Her symptoms were improved and her cervical examination was stable immediately prior to discharge without ongoing concern for labor. She was discharged in stable condition. Discharge Medications: Review of your medicines CONTINUE these medicines which have NOT CHANGED Dose / Directions IRON 27 PO Dose: 2 tablet Take 2 tablets by mouth every other day. Refills: 0 metoclopramide 10 MG tablet Commonly known as: Reglan Dose: 10 mg Take 1 tablet (10 mg) by mouth 3 times daily as needed (headache or nausea) Quantity: 20 tablet Refills: 1 multivitamin plus iron 27-1 MG Tabs Dose: 1 tablet Take 1 tablet by mouth daily. Refills: 0 SUMAtriptan 25 MG tablet Commonly known as: IMITREX Take by mouth at onset of headache for migraine. Refills: 0 Discharge Instructions: Call or present to labor and delivery if you experience: -Regular painful contractions concerning for labor -Leakage of fluid concerning for ruptured membranes -Decreased movement -Bright red vaginal bleeding -Headache, vision changes, upper abdominal pain, significant increase in swelling, generalized unwell feeling Jessa Zacarais MD Audio Recording Engineer PGY-3 01/30/24 9:31 AM Associated attestation - Claus Herman MD - 01/30/2024 11:30 AM CDT Physician Attestation I saw and evaluated this patient prior to discharge. I discussed the patient with the resident/fellow and agree with plan of care as documented in the note. I personally reviewed vital signs, medications, labs, and imaging. I personally spent 25 minutes on discharge activities. Claus Herman MD Date of Service (when I saw the patient): 01/30/24 documented in this encounter Discharge Instructions * Discharge Instructions* Daly Quintana RN - 01/30/2024 9:31 AM CDT Learning About When to Call Your Doctor During (After 20 Weeks) Overview It's common to have concerns about what might be a problem when you're . Most pregnancies don't have any serious problems. But it's still important to know when to call your doctor if you have certain symptoms or signs of labor. These are general suggestions. Your doctor may give you some more information about when to call. When to call your doctor (after 20 weeks) Call 911 anytime you think you may need emergency care. For example, call if: You have severe vaginal bleeding. This means you are soaking through a pad each hour for 2 or more hours. You have sudden, severe pain in your belly. You have chest pain, are short of breath, or cough up blood. You passed out (lost consciousness). You have a seizure. You see or feel the umbilical cord. You think you are about to deliver your baby and can't make it safely to the hospital or birthing center. Call your doctor now or seek immediate medical care if: You have vaginal bleeding. You have belly pain. You have a fever. You are dizzy or lightheaded, or you feel like you may faint. You have signs of a blood clot in your leg (called a deep vein thrombosis), such as: Pain in the calf, back of the knee, thigh, or groin. Swelling in your leg or groin. A color change on the leg or groin. The skin may be reddish or purplish, depending on your usual skin color. You have symptoms of preeclampsia, such as: Sudden swelling of your face, hands, or feet. New vision problems (such as dimness, blurring, or seeing spots). A severe headache. You have a sudden release of fluid from your vagina. (You think your water broke.) You've been having regular contractions for an hour. This means that you've had at least 6 contractions within 1 hour, even after you change your position and drink fluids. You notice that your baby has stopped moving or is moving less than normal. You have signs of heart failure, such as: New or increased shortness of breath. New or worse swelling in your legs, ankles, or feet. Sudden weight gain, such as more than 2 to 3 pounds in a day or 5 pounds in a week. Feeling so tired or weak that you cannot do your usual activities. You have symptoms of a urinary tract infection. These may include: Pain or burning when you urinate. A frequent need to urinate without being able to pass much urine. Pain in the flank, which is just below the rib cage and above the waist on either side of the back. Blood in your urine. Watch closely for changes in your health, and be sure to contact your doctor if: You have vaginal discharge that smells bad. You feel sad, anxious, or hopeless for more than a few days. You have skin changes, such as a rash, itching, or a yellow color to your skin. You have other concerns about your . If you have labor signs at 37 weeks or more If you have signs of labor at 37 weeks or more, your doctor may tell you to call when your labor becomes more active. Symptoms of active labor include: Contractions that are regular. Contractions that are less than 5 minutes apart. Contractions that are hard to talk through. Follow-up care is a weems part of your treatment and safety. Be sure to make and go to all appointments, and call your doctor if you are having problems. It's also a good idea to know your test resultsand keep a list of the medicines you take. Where can you learn more? Go to https://www.[employer].net/patiented Enter N531 in the search box to learn more about Learning About When to Call Your Doctor During (After 20 Weeks). Current as of: November 15, 2022 Content Version: 14.1 ?? [employer] Care instructions adapted under license by your healthcare professional. If you have questions about a medical condition or this instruction, always ask your healthcare professional. [employer] disclaims any warranty or liability for your use of this information. documented in this encounter Medications at Time of Discharge Medication Sig Dispensed Refills Start Date End Date Ferrous Gluconate (IRON 27 PO) Take 2 tablets by mouth every other day. metoclopramide (REGLAN) 10 MG tablet Take 1 tablet (10 mg) by mouth 3 times daily as needed (headache or nausea) 20 tablet 1 06/19/2019 Vit-Fe Fumarate-FA ( MULTIVITAMIN PLUS IRON) 27-1 MG TABS Take 1 tablet by mouth daily. SUMAtriptan (IMITREX) 25 MG tablet Take by mouth at onset of headache for migraine. documented as of this encounter Progress Notes * Jessa Zacarias MD - 01/30/2024 9:27 AM CDT Images from the original note were not included. Maternal- Medicine Antepartum Progress Note Subjective Doing well. Feeling some cramping this morning that is not painful and not bothersome. Improved from earlier this morning. Denies vaginal bleeding and loss of fluid. Normal movements. Feels safe with plan for discharge to home. Objective Vitals: 01/29/24 1405 01/29/24 1725 01/29/24 2045 01/30/24 0650 BP: 119/64 108/62 108/58 107/56 BP Location: Right arm Right arm Right arm Right arm Patient Position: Semi-Baker's Semi-Baker's Semi-Baker's Semi-Baker's Cuff Size: Adult Regular Adult Regular Adult Regular Adult Regular Pulse: Resp: 16 16 18 16 Temp: 97.5 ??F (36.4 ??C) 97.8 ??F (36.6 ??C) 98 ??F (36.7 ??C) 98.2 ??F (36.8 ??C) TempSrc: Oral Oral Oral Oral Weight: Gen: Resting comfortably in bed, NAD CV: Regular rate, well perfused Resp: Breathing comfortably on room air Abd: Gravid, non-tender, non-distended Ext: non-tender, no edema SVE: 05/28/-2 FHT: 125 bpm, mod variability, accelerations present, no decelerations Bishop: 0 contractions/10 minutes Imaging: [facility] US COMPREHENSIVE (01/30/24) IMPRESSION 1. Thomas at 35w 4d gestational age. 2. None of the anomalies commonly detected by ultrasound were evident in the limited anatomicsurvey as described above. 3. Growth parameters and estimated weight were appropriate for gestational age. 4. The amniotic fluid volume appeared normal. Assessment/Plan Sid Garcia is a 23 year old @ 34w5d by LMP c/w 8w1d US, admitted with concern for labor as a ROBER form [place]. Her has been notable for: - History of delivery (failure to progress, second stage) - H/o hemorrhage requiring blood transfusion, Bakri balloon - Anemia - GCT elevated, normal GTT - Factor V Leiden heterozygote - Rubella equivocal - Migraines # C/f Labor Presented with painful uterine contractions to [place]. Workup at outside hospital concerning for possible increasing cervical effacement so transfer was recommended for higher level NICU cares. At presentation to [facility], infectious workup unremarkable including negative wet prep, GC/CT, UA unremarkable (s/p 1d Macrobid at outside hospital). FHT reactive/reassuring, toco with regular contractileactivity. Cervical exam has been stable at 1.5//-3. - GBS negative - s/p BMZ (01/27-); Continue Nifed PRN though BMZ window (today 2107) - Jason this AM reassuring as above - Discussed given stable cervical examination and improvement in symptoms, plan for discharge to home. Patient plans to call her primary OB provider to schedule close follow up appointment. Discussedreturn precautions. # Anemia Hgb 10.7 (goal in 3rd tri >11.0) - PO Fe supplementation # Factor V Leiden Heterozygote No personal history of VTE - anticoagulation x6 weeks for section or with other risk factors. # Possible Subclinical Hypothyroidism TSH <0.015 (08/30/2023), free T4 and free T3 nl. Endocrine recommended repeat TSH, free T4, totalT4, and TSI antibody testing. Unclear results of this testing. - Consider above testing when clinically stable or as outpatient if able to discharge # History of Migraine with Aura Previously on daily propranolol and rescue rizatriptan but discontinued with - prn sumatriptan # Rubella equivocal - MMR vaccine # Inpatient Management - up ad alisson - Regular diet - SCD's and prophylactic Lovenox PRN if hospitalized >72h and clinically stable - Q72 hour CBC type/screen # FWB - Continuous monitoring > space to BID today given clinical stability - Ultrasound surveillance plan: plan for comprehensive US in AM - NICU: consult ordered, appreciate counseling # Routine care - Rh positive; Antibody negative - Rubella equivocal, Hepatitis B NR, Hepatitis C NR, HIV NR, RPR negative (1st trimester and at 28w), GBS pending - GC/CT negative - GCT elevated, GTT nl - Other labs wnl - Imaging: records of imaging not available in records - Immunizations: s/p Tdap 12/28/2023;, Flu, COVID, RSV not yet documented, did not discuss on admission - Pap last not documented in record - Contraception: Will discuss if delivery indicated - Feeding: Will discuss if delivery indicated # Delivery Plan: - MOD: H/o CS x1 (arrest of descent). Desires TOLAC and is s/p consent. Discussed possible cesareandelivery. Discussed risks and benefits of procedure, including but not limited to bleeding, infection, injury to surrounding organs, injury to , and the potential need for another surgery should some injury go unrecognized or patient were to have continued bleeding. Patient had time to ask questions and expressed understanding of procedure and associated risks. Agreed to blood transfusion if necessary. Consent signed, including for possible classical hysterotomy. - TOD: Pending potential labor. Otherwise anticipate delivery timing by other medical comorbidities such as diabetes control. - s/p anesthesia consult Patient seen and discussed with Dr. Claus Zacarias MD Audio Recording Engineer PGY-3 01/30/24 8:42 AM Associated attestation - Claus Herman MD - 01/30/2024 11:30 AM CDT Physician Attestation I saw this patient with the resident and agree with the resident/fellow's findings and plan of careas documented in the note. Weems findings: Patient is a 23 YO at 34w6d who presented as transport from [facility] 01/28/2024 for concerns of threatened labor in the setting of late period and history of LTCS desiring TOLAC. Since admission the cervix remains unchanged and the patient is noting less contractions today. She has taken no further nifedipine. The fetus is reassuring on FHR monitoring. US today is reassuring and normal. The patient is comfortable with discharge to follow up with [facility] OB team. 25 MINUTES SPENT BY ME on the date of service doing chart review, history, exam, documentation & further activities per the note. GBS swab negative 01/29/2024 Claus Herman MD Date of Service (when I saw the patient): 01/30/24 * Jessa Zacarias MD - 01/29/2024 10:59 AM CDT Images from the original note were not included. Maternal- Medicine Antepartum Progress Note Subjective Feeling well today. Still feeling some contractions- some are more painful than others. Occurring ~q10 minutes subjectively. She does report a high pain tolerance at baseline with minimal contractilepain during her last labor. Denies leaking of fluid, vaginal bleeding, or decreased movement.She did sleep overnight with the assistance of pain medications/sleep aid. She is unsure if the Nifedipine is significantly reducing contractions. Discussed last delivery- she progressed to 9 cm and tried pushing to reduce remaining cervix though it never reduced. Baby was OP per her recollection. Affirms desire for TOLAC. Objective Vitals: 01/29/24 0220 01/29/24 0630 01/29/24 0735 01/29/24 1005 BP: 95/51 109/63 111/62 115/59 BP Location: Left arm Left arm Right arm Right arm Patient Position: Right side Semi-Baker's Semi-Baker's Semi-Baker's Cuff Size: Adult Regular Adult Regular Adult Regular Adult Regular Pulse: Resp: 16 16 16 Temp: 98.5 ??F (36.9 ??C) 98.4 ??F (36.9 ??C) 98.4 ??F (36.9 ??C) TempSrc: Oral Oral Oral Weight: 60.9 kg (134 lb 3.2 oz) Gen: Resting comfortably in bed, NAD CV: Regular rate, well perfused Resp: Breathing comfortably on room air Abd: Gravid, non-tender, non-distended Ext: non-tender, no edema FHT: 135 bpm, mod variability, accelerations present, no decelerations Bishop: 2 contractions/10 minutes Assessment/Plan Abrial Douglas Garcia is a 23 year old @ 34w5d by LMP c/w 8w1d US, admitted with concern for labor as a ROBER form [place]. Her has been notable for: - History of delivery (failure to progress, second stage) - H/o hemorrhage requiring blood transfusion, Bakri balloon - Anemia - GCT elevated, normal GTT - Factor V Leiden heterozygote - Rubella equivocal - Migraines # C/f Labor Presented with painful uterine contractions to [place]. Workup at outside hospital concerning for possible increasing cervical effacement so transfer was recommended for higher level NICU cares. At presentation to [facility], infectious workup unremarkable including negative wet prep, UA unremarkable (s/p 1d Macrobid at outside hospital). FHT reactive/reassuring, toco with regular contractile activity. Cervical exam has been stable at 1.5//-3. - Labs: GC/CT, GBS pending; follow up results - GBS unknown (pending/in process); D#1 PCN - given stable symptoms this AM, will discontinue (resume PRN if labor symptoms recur) - s/p BMZ #1 (2107); second dose due this evening - Nifedipine tocolysis initiated at outside hospital; given GA >34 weeks, will make Nifedipine PRN through betamethasone window # Anemia Hgb 10.7 (goal in 3rd tri >11.0) - PO Fe supplementation # Factor V Leiden Heterozygote No personal history of VTE - anticoagulation x6 weeks for section or with other risk factors. # Possible Subclinical Hypothyroidism TSH <0.015 (08/30/2023), free T4 and free T3 nl. Endocrine recommended repeat TSH, free T4, totalT4, and TSI antibody testing. Unclear results of this testing. - Consider above testing when clinically stable or as outpatient if able to discharge # History of Migraine with Aura Previously on daily propranolol and rescue rizatriptan but discontinued with - prn sumatriptan # Rubella equivocal - MMR vaccine # Inpatient Management - up ad alisson - Regular diet - SCD's and prophylactic Lovenox PRN if hospitalized >72h and clinically stable - Q72 hour CBC type/screen # FWB - Continuous monitoring > space to BID today given clinical stability - Ultrasound surveillance plan: plan for comprehensive US in AM - NICU: consult ordered, appreciate counseling # Routine care - Rh positive; Antibody negative - Rubella equivocal, Hepatitis B NR, Hepatitis C NR, HIV NR, RPR negative (1st trimester and at 28w), GBS pending - GC/CT negative - GCT elevated, GTT nl - Other labs wnl - Imaging: records of imaging not available in records - Immunizations: s/p Tdap 12/28/2023;, Flu, COVID, RSV not yet documented, did not discuss on admission - Pap last not documented in record - Contraception: Will discuss if delivery indicated - Feeding: Will discuss if delivery indicated # Delivery Plan: - MOD: H/o CS x1 (arrest of descent). Desires TOLAC and is s/p consent. Discussed possible cesareandelivery. Discussed risks and benefits of procedure, including but not limited to bleeding, infection, injury to surrounding organs, injury to , and the potential need for another surgery should some injury go unrecognized or patient were to have continued bleeding. Patient had time to ask questions and expressed understanding of procedure and associated risks. Agreed to blood transfusion if necessary. Consent signed, including for possible classical hysterotomy. - TOD: Pending potential labor. Otherwise anticipate delivery timing by other medical comorbidities such as diabetes control. - s/p anesthesia consult Patient seen and discussed with Dr. Claus Zacarias MD Audio Recording Engineer PGY-3 01/29/24 11:02 AM Associated attestation - Claus Herman MD - 01/29/2024 11:39 AM CDT Physician Attestation I saw this patient with the resident and agree with the resident/fellow's findings and plan of careas documented in the note. Weems findings: Patient is a 23 YO at 34w5d who presented as transport from [facility] last evening for concerns of threatened labor in the setting of late period and history of LTCS desiring TOLAC. Since admission the cervix remains unchanged and the patient is noting some contractions which are pretty much unchanged from yesterday. She has taken a few doses of nifedipine and is unsure if these have decreased contractions. The fetus is reassuring on FHR monitoring. I had a long discussion with the patient and her partner regarding PTL and management. I have switched to PRN nifedipine and will discontinue PNC for unknown GBS. We discussed TOLAC and risks/benefits. The patient continues to desire this. Will remain in house until completes BTMS and gets US tomorrow am. If remains unchanged and all tests reassuring then OK for OP management and delivery at [place] after 35 weeks. Likely discontinue tomorrow am. 45 MINUTES SPENT BY ME on the date of service doing chart review, history, exam, documentation & further activities per the note. I have personally reviewed the following data over the past 24 hrs: 9.9 \ 10.7 (L) / 218 N/A N/A N/A / N/A N/A N/A N/A \ Claus Herman MD Date of Service (when I saw the patient): 01/29/24 * Lev Alejandro MD - 01/29/2024 7:15 AM CDT Brief Antepartum Progress Note S: Feeling a bit better. Was able to rest overnight. Contractions are coming less frequently, although she does note that there are occasional contractions that feel stronger than anticipated. O: BP 109/63 (BP Location: Left arm, Patient Position: Semi-Baker's, Cuff Size: Adult Regular) Pulse 96 Temp 98.4 ??F (36.9 ??C) (Oral) Resp 16 LMP 05/31/2023 (Exact Date) General: resting comfortably in bed VE: 1.5/20/-3, medium consistency FHT: Baseline 135, moderate variability, accelerations present, no decelerations TOCO: 0-2 contractions in ten minutes, irregular pattern A/P: 23 year old at 34w5d, here for concern for labor. On brief check in this morning, overall stable to doing better. Cervix overall unchanged on exam, still posterior. Lev Alejandro MD HEEL CASER PGY-3 01/29/2024 7:15 AM documented in this encounter H&P Notes * Lev Alejandro MD - 01/28/2024 11:34 PM CDT Images from the original note were not included. Antepartum History and Physical January 29, 2024 Sid Garcia [id number] HPI Sid Garcia is a 23 year old at 34w4d by LMP c/w 8w1d US who presents as a transfer ofcare from [facility] with concerns for labor. She started to notice back pain and frequent abdominal tightening this morning (01/27). She thought it was [facility] contractions so continued with her planned activities. The pain continued and she was concerned, so presented to triage at her local hospital. There, she had workup which she notes was concerning for possible UTI, although sample appeared contaminated. There was concern for cervical effacement although cervical dilation remained stable, so she was transferred here for higher level of NICU cares. Prior to transfer, she was given IV ampicillin, IM betamethasone, PO macrobid, and PO nifedipine (for tocolysis, not blood pressure). Sid notes that she continues to feel intermittent tightening of her abdomen and a constant low back pain. She has not had any vaginal bleeding or leaking of fluid. She has felt great movement. No headaches, vision changes, chest pain, shortness of breath, or RUQ pain. She has not had any recent changes in vaginal discharge, no vaginal itching, and no malodorous discharge. She has no history of hypertensive disorders or of asthma. Her has been notable for: - History of delivery (failure to progress, second stage) - H/o hemorrhage requiring blood transfusion, Bakri balloon - Anemia - GCT elevated, normal GTT - Factor V Leiden heterozygote - Rubella equivocal - Migraines OB History Para Term AB Living 3 1 1 0 1 1 SAB IAB Ectopic Multiple Live Births 1 0 0 0 0 # Outcome Date GA Lbr Perez/2nd Weight Sex Type Anes PTL Lv 3 Current 2 SAB 1 Term 02/01/20 Past Medical History Past Medical History: Diagnosis Date Congenital factor VIII disorder (H) Past Surgical History Past Surgical History: Procedure Laterality Date SECTION Medications Current Facility-Administered Medications Medication Dose Route Frequency Provider Last Rate Last Admin acetaminophen (TYLENOL) tablet 650 mg 650 mg Oral Q4H PRN Lev Alejandro MD betamethasone acet & sod phos (CELESTONE) injection 12 mg 12 mg Intramuscular Once Lev Alejandro MD bisacodyl (DULCOLAX) suppository 10 mg 10 mg Rectal Daily PRN Lev Alejandro MD calcium carbonate (TUMS) chewable tablet 1,000 mg 1,000 mg Oral Q6H PRN Lev Alejandro MD diphenhydrAMINE (BENADRYL) capsule 25 mg 25 mg Oral Q6H PRN Lev Alejandro MD Or diphenhydrAMINE (BENADRYL) injection 25 mg 25 mg Intravenous Q6H PRN Lev Alejandro MD docusate sodium (COLACE) capsule 100 mg 100 mg Oral BID Lev Alejandro MD hydrOXYzine HCl (ATARAX) tablet 50 mg 50 mg Oral At Bedtime PRN Lev Alejandro MD 50 mg at 01/29/24 0116 lactated ringers infusion Intravenous Continuous Lev Alejandro MD 125 mL/hr at 01/29/24 0108 New Bag at 01/29/24 0108 lidocaine (LMX4) cream Topical Q1H PRN Lev Alejandro MD lidocaine 1 % 0.1-1 mL 0.1-1 mL Other Q1H PRN Lev Alejandro MD metoclopramide (REGLAN) tablet 10 mg 10 mg Oral Q6H PRN Lev Alejandro MD Or metoclopramide (REGLAN) injection 10 mg 10 mg Intravenous Q6H PRN Lev Alejandro MD NIFEdipine (PROCARDIA) capsule 20 mg 20 mg Oral Q6H Lev Alejandro MD 20 mg at 01/29/24 0116 ondansetron (ZOFRAN ODT) ODT tab 4 mg 4 mg Oral Q6H PRN Lev Alejandro MD Or ondansetron (ZOFRAN) injection 4 mg 4 mg Intravenous Q6H PRN Lev Alejandro MD penicillin G potassium 3 Million Units in D5W 50 mL intermittent infusion 3 Million Units Intravenous Q4H Lev Alejandro MD multivitamin w/iron per tablet 1 tablet 1 tablet Oral Daily Lev Alejandro MD prochlorperazine (COMPAZINE) tablet 10 mg 10 mg Oral Q6H PRN Lev Alejandro MD Or prochlorperazine (COMPAZINE) injection 10 mg 10 mg Intravenous Q6H PRN Lev Alejandro MD senna-docusate (SENOKOT-S/PERICOLACE) 8.6-50 MG per tablet 1 tablet 1 tablet Oral BID Lev Alejandro MD Or senna-docusate (SENOKOT-S/PERICOLACE) 8.6-50 MG per tablet 2 tablet 2 tablet Oral BID Lev Alejandro MD simethicone (MYLICON) chewable tablet 160 mg 160 mg Oral Q6H PRN Lev Alejandro MD sodium chloride (PF) 0.9% PF flush 3 mL 3 mL Intracatheter Q8H Lev Alejandro MD sodium chloride (PF) 0.9% PF flush 3 mL 3 mL Intracatheter q1 min prn Lev Alejandro MD sodium phosphate (FLEET ENEMA) 1 enema 1 enema Rectal Daily PRN Lev Alejandro MD SUMAtriptan (IMITREX) tablet 25 mg 25 mg Oral at onset of headache Lev Alejandro MD Allergies No Known Allergies Family History No family history on file. Social History Social History Socioeconomic History Marital status: Single Spouse name: None Number of children: None Years of education: None Highest education level: None Social Determinants of Health Financial Resource Strain: Low Risk (01/28/2024) Financial Resource Strain Within the past 12 months, have you or your family members you live with been unable to get utilities (heat, electricity) when it was really needed?: No Food Insecurity: Low Risk (01/28/2024) Food Insecurity Within the past 12 months, did you worry that your food would run out before you got money to buy more?: No Within the past 12 months, did the food you bought just not last and you didn???t have money to getmore?: No Transportation Needs: Low Risk (01/28/2024) Transportation Needs Within the past 12 months, has lack of transportation kept you from medical appointments, getting your medicines, non-medical meetings or appointments, work, or from getting things that you need?: No Physical Activity: Sufficiently Active (08/17/2023) Received from [facility] Exercise Vital Sign Days of Exercise per Week: 5 days Minutes of Exercise per Session: 60 min Stress: No Stress Concern Present (07/14/2022) Received from [facility] [employer] [place] [facility] [employer] - Occupational Stress Questionnaire Feeling of Stress : Only a little Social Connections: Socially Isolated (07/14/2022) Received from [facility] Social Connection and Isolation Panel [NHANES] Frequency of Communication with Friends and Family: More than three times a week Frequency of Social Gatherings with Friends and Family: Once a week Attends Muslim Services: Never Active Member of Clubs or Organizations: No Attends Club or Organization Meetings: Never Marital Status: Never Interpersonal Safety: Low Risk (01/28/2024) Interpersonal Safety Do you feel physically and emotionally safe where you currently live?: Yes Within the past 12 months, have you been hit, slapped, kicked or otherwise physically hurt by someone?: No Within the past 12 months, have you been humiliated or emotionally abused in other ways by your partner or ex-partner?: No Housing Stability: Low Risk (01/28/2024) Housing Stability Do you have housing? : Yes Are you worried about losing your housing?: No ROS 10-point ROS negative except as indicated in HPI. Physical Exam Vitals: 01/28/24 2312 01/29/24 0220 BP: 120/66 95/51 BP Location: Left arm Left arm Patient Position: Semi-Baker's Right side Cuff Size: Adult Regular Adult Regular Pulse: 96 Resp: 16 16 Temp: 98.6 ??F (37 ??C) 98.5 ??F (36.9 ??C) TempSrc: Oral Oral General: alert, oriented female, resting in bed in NAD CV: regular rate, well perfused Lungs: no increased work of breathing Abdomen: soft, gravid, non-tender Extremities: bilateral lower extremities non-tender with no edema : Normal appearing external genitalia. On speculum exam, scant vaginal discharge, normal rugationof vagina. No pooling of fluid or vaginal bleeding visualized. Cervix visually long, closed, and posterior. SVE: 1.5/20/-3 Presentation: cephalic by bedside ultrasound FHT: baseline 150 bpm, moderate variability, accelerations present, nodecelerations Bishop: 3-4 contractions in 10 minutes Impression: Category 1 FHT Labs Labs: Blood type - O positive, antibody negative Varicella immune, Rubella equivocal HIV/Hep B/HepC negative G/C negative RPR negative (8w1d and 28w0d) GCT 168; GTT wnl TSH <0.015 GBS Status: Pending No results found for: PAP Results for orders placed or performed during the hospital encounter of 01/28/24 (from the past 24 hour(s)) Wet prep Specimen: Vagina; Swab Result Value Ref Range Trichomonas Absent Absent Yeast Absent Absent Clue Cells Absent Absent WBCs/high power field 1+ (A) None UA with Microscopic reflex to Culture Specimen: Urine, Clean Catch Result Value Ref Range Color Urine Yellow Colorless, Straw, Light Yellow, Yellow Appearance Urine Clear Clear Glucose Urine Negative Negative mg/dL Bilirubin Urine Negative Negative Ketones Urine 100 (A) Negative mg/dL Specific [place] Urine 1.009 1.003 - 1.035 Blood Urine Negative Negative pH Urine 7.0 5.0 - 7.0 Protein Albumin Urine Negative Negative mg/dL Urobilinogen Urine Normal Normal, 2.0 mg/dL Nitrite Urine Negative Negative Leukocyte Esterase Urine Negative Negative Mucus Urine Present (A) None Seen /LPF RBC Urine 1 <=2 /HPF WBC Urine <1 <=5 /HPF Squamous Epithelials Urine 1 <=1 /HPF Narrative Urine Culture not indicated ABO/Rh type and screen Narrative The following orders were created for panel order ABO/Rh type and screen. Procedure Abnormality Status --------- ------ Adult Type and Screen[[id number]] Final result Please view results for these tests on the individual orders. Adult Type and Screen Result Value Ref Range ABO/RH(D) O POS Antibody Screen Negative Negative SPECIMEN EXPIRATION DATE [id number] Imaging Not available in system. Assessment/Plan 23 year old at 34w5d by LMP consistent with 8w1d US, transferred to [facility] for NICU cares in the setting of suspected labor. On examination here, patient appears stable, although continuing to contract on tocometry. R/o Labor Concern at outside hospital for cervical effacement at 1 cm dilated. On examination here, patient appears relatively stable with cervix of 1.5 cm, long, high, firm, and posterior. - Cervix: 30/?> 175/? At outside hospital> 1.5/20/-3. Suspect minimal cervical change. - Labs: UA (see below), Wet Prep normal, GC/C pending - GBS pending. S/p ampicillin x1 dose at outside hospital. Will give IV penicillin therapy while continuing to observe for cervical change; will discontinue when determined to be fully stable - s/p IVF Hydration at outside hospital; PO hydration - Tocolysis: will give nifedipine through betamethasone window - Mode of delivery: plans TOLAC (see below) - BMZ: s/p BMZ #1 (01/28 2108) - Magnesium: not indicated C/f UTI - UTI at outside hospital with trace blood, 1+ leukocyte esterase, negative nitrites, moderate bacteria, and many squamous epithelial cells. Concern for contamination. - Treated with macrobid 100 mg PO once at the outside hospital. - At this institution, LE and nitrite negative, no blood in urine, no bacteria. No epithelial cells. Urine culture not indicated. - Overall low concern for UTI given normal UA at this institution with clean catch, although did recently receive antibiotics. History of Delivery Desires TOLAC - Prior delivery secondary to arrest of descent in 2019. weight 8 lb 1 oz. Prior operative note not available but suspect low transverse hysterotomy. - Previously counseled on TOLAC in clinic appointments. - Once again discussed risks/benefits/alternatives including risk of uterine rupture <1%. Risk of RCS includes longer recovery time, higher risk of hemorrhage, infection, VTE, damage to surrounding organs, increased surgical risks with subsequent surgeries or abnormal placentation. Surgical risks as above are increased with section in labor or emergency section. - TOLAC consent signed. Anemia History of Hemorrhage hemorrhage in setting of in second stage of labor. - Hgb last 10.4, ferritin 4.9 (12/13/23) - PO Fe supplementation - S/p IV iron 01/19 Factor V Leiden Heterozygote - No history of VTE - anticoagulation x6 weeks for section or with other risk factors. Possible Subclinical Hypothyroidism - TSH <0.015 (08/30/2023), free T4 and free T3 nl - Endocrine recommended repeat TSH, free T4, total T4, and TSI antibody testing. Unclear results ofthis testing. History of Migraine with Aura - Previously on daily propranolol and rescue rizatriptan but discontinued with - prn sumatriptan Varicella equivocal - MMR vaccine Inpatient Management - up ad alisson - Regular diet - SCD's and prophylactic Lovenox BID - Q72 hour CBC type/screen FWB - BID NSTs for monitoring - Ultrasound surveillance plan: pending possible labor course - BMZ: s/p first dose at [place] 01/27 at 2108 - Magnesium not indicated secondary to gestational age - NICU: consult ordered, will reach out in the morning. Routine care - Rh positive; Antibody negative - Rubella equivocal, Hepatitis B NR, Hepatitis C NR, HIV NR, RPR negative (1st trimester and at 28w), GBS pending - GC/CT negative - GCT elevated, GTT nl - Other labs wnl - Imaging: records of imaging not available in records - Immunizations: s/p Tdap 12/28/2023;, Flu, COVID, RSV not yet documented, did not discuss on admission - Pap last not documented in record - Contraception: Will discuss if delivery indicated - Feeding: Will discuss if delivery indicated Delivery Plan: - MOD: Plan TOLAC, as above. Did discuss possible delivery and possible classical hysterotomy in event of emergency with patient. Discussed risks and benefits of procedure, including but notlimited to bleeding, infection, injury to surrounding organs, injury to , and the potential need for another surgery should some injury go unrecognized or patient were to have continued bleeding. Patient had time to ask questions and expressed understanding of procedure and associated risks. Agreed to blood transfusion if necessary. Consent signed, including for possible classical hysterotomy. - TOD: Pending potential labor. Otherwise anticipate delivery timing by other medical comorbidities such as diabetes control. Patient seen and care plan discussed under supervision of Dr. Herman. Lev Alejandro MD HEEL CASER PGY-3 01/29/2024 4:34 AM Associated attestation - Claus Herman MD - 01/29/2024 11:33 AM CDT Physician Attestation I did not see the patient on this date. I was [facility]. Agree with above plan. Provided report verbally to In-house OB Dr. Mota. Will see patient in am Claus Herman MD documented in this encounter Miscellaneous Notes * Plan of Care - Daly Quintana RN - 01/30/2024 9:33 AM CDT Goal Outcome Evaluation: Plan of Care Reviewed With: patient, spouse Overall Patient Progress: improvingOverall Patient Progress: improving Outcome Evaluation: Ready for discharge home * Provider Notification - Daly Quintana RN - 01/30/2024 9:30 AM CDT 01/30/24 0929 Discharge Needs Anticipated Changes Related to Illness none Concerns to be Addressed all concerns addressed in this encounter Barriers to Discharge none * Provider Notification - Daly Quintana RN - 01/30/2024 8:54 AM CDT 01/30/24 0850 Provider Notification Provider Name/Title Dr. Herman, Dr. Zacarias, and M team Method of Notification At Bedside Request Evaluate in Person Notification Reason Status Update EFM strip review over past 24 hours. Discussed plan for discharge home today and follow up care. Ultrasound showed normal findings, cephalic position, normal fluid levels. * Provider Notification - Daly Quintana RN - 01/30/2024 8:53 AM CDT 01/30/24 0835 Vaginal Exam Method sterile exam per physician Vaginal Bleeding not present Cervical Dilation (cm) 1.5 Cervical Effacement 20% Station -[address] Zacarias. NO change from previous exam. * Provider Notification - Daly Quintana RN - 01/30/2024 8:01 AM CDT 01/30/24 0800 Provider Notification Provider Name/Title Dr. Zacarias Method of Notification In Department Request Evaluate in Person Notification Reason Status Update Discussed plan for SVE this morning after ultrasound. * Provider Notification - Daly Quintana RN - 01/30/2024 7:55 AM CDT 01/30/24 0725 Pain/Comfort/Sleep Patient Currently in Pain yes (less than before - cramps) * Plan of Care - Radha Mendoza RN - 01/30/2024 7:18 AM CDT Afebrile and other VSS. Second dose of betamethasone given at 1999. Reports active movement. Denies headache, vision changes, or RUQ pain. She reports feeling occasional contractions/abdominal tightening that are not regular. During evening monitoring no contractions noted on toco or palpated. heart tracing shows moderate variability, accels present, and no decelerations (see flowsheets). Pt denies leaking of fluids but did note a little bit of pink color to her normal vaginal discharge before bed. She denied cramping or painful contractions at that time. Provider was notified of this finding. Pt educated to let RN know if she starts to notice more abdominal cramps/contractions,or any more changes in vaginal discharge. Significant other, Rohith, was at bedside and very supportive. Pt is tolerating diet and using the bathroom appropriately. Report given to Daly Finley RN to continue plan of care. * Provider Notification - Radha Menodza RN - 01/30/2024 7:01 AM CDT 01/30/24 0700 Provider Notification Provider Name/Title Dr. Kerry Jesus Method of Notification Phone Request Evaluate - Remote Notification Reason Uterine Activity Provider notified of change in uterine activity. RN checked on pt at 0635 this morning and pt reported waking up around 0600 with some cramping. EFM and toco placed. Abdomen palpates soft. Pt denies noticing any bleeding or leaking of fluids this AM. Endorses positive movement. * Plan of Care - Ledy Allred RN - 01/29/2024 7:13 PM CDT Plan of care reviewed with : Sid Overall Progress: Improving Outcome Evaluation: Sid is comfortable. She is still feeling contractions but states that they are not getting more frequent or intense. Her last cervical exam was this morning at 0708, and she remained unchanged since her last exam yesterday at 0000. She denies vaginal bleeding, leakage of fluid, or decreased movement. Continuous monitoring discontinued today at 1030. FHR monitoring BID and PRN. She is educated and encouraged to report any changes related to labor. Plan is for second dose of betamethasone today at 2000 for lung maturity and comprehensive UStomorrow morning. Sid desires to have TOLAC if labor progresses, consent signed. Report given and care transferred to Josy KENDALL at 1910. * Provider Notification - Ledy Allred RN - 01/29/2024 10:37 AM CDT 01/29/24 1019 Provider Notification Provider Name/Title Dr. Herman Method of Notification At Bedside Request Evaluate in Person Notification Reason Status Update Provider saw patient at bedside. Plan of care discussed with Sid and her partner Rohith. POC is to switch to BID and PRN FHR monitoring, discontinue antibiotics and change nifedipine to PRN from scheduled. She will be transferred to [facility]. Plan for US tomorrow morning and decide POC from there. Sid and her partner Rohith are agreeable to the plan. * Plan of Care - Tristian Rogers RN - 01/29/2024 7:11 AM CDT VSS. See flowsheets for Uterine and FHR patterns and assessments. Patient denies headache, vision changes, RUQ epigastric pain, N/V, bleeding, and leaking of fluids. Patients complains of ctx, providers aware. Support person at bedside. Call light in reach. Patient educated on informing staff of any changes. All questions and concerns answered and addressed. Will continue current plan of care. Will monitor and observe for any signs and symptoms of PTL. Will notify Provider of any change of status. Report given to Ledy KENDALL. * Plan of Care - Venus Hartley RN - 01/28/2024 11:24 PM CDT Patient arrived via ambulance from [facility] at 2255 and admitted to room 458. Ctx every 2-3 minutes, palpating moderate and patient feeling discomfort with ctx. VSS, IV patent. Denies bleeding and LOF. Dr. Alejandro paged to bedside and at bedside at 2312. Report to ENOCH Lubin at 2315 who assumes patient care. documented in this encounter Plan of Treatment Not on file documented as of this encounter Procedures Procedure Name Priority Date/Time Associated Diagnosis Comments [facility] US COMPREHENSIVE SINGLE Routine 01/30/2024 8:25 AM CDT CBC WITH PLATELETS Routine 01/29/2024 10 :06 AM CDT TYPE AND SCREEN, ADULT Timed 12:56 AM CDT ABO/RH TYPE AND SCREEN Timed 12:56 AM CDT ROUTINE UA WITH MICROSCOPIC REFLEX TO CULTURE STAT 01/29/2024 12:48 AM CDT CHLAMYDIA TRACHOMATIS/NEISSERIA GONORRHOEAE BY PCR STAT 01/29/2024 12:38 AM CDT WET PREPARATION STAT 01/29/2024 12:38 AM CDT GROUP B STREP PCR STAT 01/29/2024 12: 38 AM CDT HEPATITIS B SURFACE ANTIGEN (EXTERNAL RESULT) Routine 07/27/2023 12:27 AM CDT HIV 1&2 ANTIBODY (EXTERNAL RESULT) Routine 07/27/2023 12:27 AM CDT RUBELLA ANTIBODY IGG (EXTERNAL RESULT) Routine 07/27/2023 12:27 AM CDT documented in this encounter Results * Maternal US Comprehensive Single (01/30/2024 [...] 8:38 AM CDT ?Comprehensive ----- Pat. Name: GODFREY SID ? Study Date: ??01/30/2024 7:08am Pat. NO: ??[id number] ?Referring ??MD: ROSA BARBA Site: ? After School Tutor: Vicky Alvarado RDMS : ??2000 ?Age: ?? 23 ----- INDICATION ----- Inpatient. labor. METHOD ----- [facility] ANTEPARTUM inpatient exam. Transabdominal ultrasound examination. [...] lb 15 ?oz EFW by ? Hadlock ([id number]) Head / Face / Neck Biometry: Linoleum Tile Floor Layer ?4.3 ? mm CM ? 6.3 ? [...] view. RVOT view. LVOT view. 3-vessel view. 0-apvism-cuwuxcc view. Situs. Aortic arch view. Bicaval view. [...] GARCIA Study Date: 01/30/2024 7:08am Pat. NO: [id number] Referring MD: ROSA BARBA Site: After School Tutor: Vicky Alvarado RDMS : 2000 Age: 23 ----- INDICATION ----- Inpatient. labor. METHOD ----- [facility]TE[facility] inpatient exam. Transabdominal ultrasound examination.View: [...] EFW (lb,oz) 5 lb 15oz EFW by Hadlock([id number]) Head / Face / Neck Biometry: Linoleum Tile Floor Layer 4.3mm CM 6.3mm Nasal bone 10.4mm ANATOMY ----- The following structures appear normal: Head / Neck Cranium. Head size. Head shape.Lateral ventricles. Choroid plexus. Midline falx. Cavum septi pellucidi.Cerebellum. Cisterna magna. Parenchyma. Thalami. Vermis. Neck. Face Lips. Profile. Nose. Maxilla.Mandible. Orbits. Lens. Heart / Thorax 4-chamber view. RVOT view. LVOT view.3-vessel view. 9-qrdysy-vgtpxel view. Situs. Aortic arch view. Bicavalview. Ductal [...] fluid volume appeared normal. Jessa Zacarias MD [facility] US ORDERABLE S * (ABNORMAL) CBC with platelets (01/29/2024 10:06 AM CDT) [facility] Signature WBC Count 9.9 4.0 - 11.0 [...] LAB - BLOOD ORDERABL ES UR LABORATORY [facility] Acute Care Lab On license of [facility], [address] [place] [id number] * Adult Type and Screen (01/29/2024 12:56 AM CDT) ABO/RH(D) O POS 01/29/2024 12:34 AM CDT UR BLOOD BANK Antibody Screen Negative Negative 01/29/2024 12:34 AM CDT UR BLOOD BANK SPECIMEN EXPIRATION DATE [id number] 01/29/2024 12:34 AM CDT UR BLOOD BANK Blood STRUCTURE OF RIGHT UPPER LIMB / Unknown Venipuncture / Unknown 01/29/2024 12:56 AM CDT 01/29/2024 1:02 AM CDT Lev Alejandro MD LAB - BLOOD BANK RICHARD T ORDER Performing Organization Address [facility]/ZIP Co de Phone Number UR BLOOD BANK [facility] [address] [place] [address], Room [place] [phone] * (ABNORMAL) UA with Microscopic reflex to Culture (01/29/2024 12:48 AM CDT) Color Urine Yellow Colorless, Straw, Light Yellow, Yellow 01/29/2024 1:05 AM CDT UR LABORATORY Appearance Urine Clear Clear 01/29/20 24 1:05 AM CDT UR LABORATORY Glucose Urine Negative Negative mg/dL 01/29/2024 1:05 AM CDT UR LABORATORY Bilirubin Urine Negative Negative 4 1:05 AM CDT UR LABORATORY Ketones Urine 100(A) Negative mg/dL 01/29/2024 1:05 AM CDT UR LABORATORY Specific [place] Urine 1.009 1.003 - 1.035 01/29/2024 1:05 [...] ORDERABL ES UR LABORATORY [facility] Acute Care Lab [address], [address] [place] [address], [facility] * Chlamydia trachomatis/Neisseria gonorrhoeae by PCR (01/29/2024 12:38 AM CDT) Chlamydia Trachomatis Negative Negative 01/29/2024 11:09 AM CDT [facility] Comment: Negative for C. trachomatis rRNA by job press feeder mediated amplification. A negative result by job press feeder mediated amplification does not preclude the presence of infection because results are dependent on proper and adequate collection, absence of inhibitors and sufficient rRNA to be detected. Neisseria gonorrhoeae Negative Negative 01/29/2024 11:09 AM CDT [facility] Comment:Negative for N. gono rrhoeae rRNA by job press feeder mediated amplification. A negative result by job press feeder mediated amplification does not preclude the presence of C. trachomatis infection because results are dependent on proper and adequate collection, absence of inhibitors and sufficient rRNA to be detected. Swab CERVIX UTERI STRUCTURE / Unknown Non-blood Collection / Unknown 01/29/2024 12:38 AM CDT 01/29/2024 12:45 AM CDT Lev Alejandro MD LAB - MICRO GENERAL ORDERABLES [facility] Inf. Diseases Diag. Lab [address], [address] [place] [address], [facility] * (ABNORMAL) Wet prep (01/29/2024 12:38 [...] LAB - MICRO GENERAL ORDERABLES UR LABORATORY [facility] Acute Care Lab [address] [place] [address], [facility] * Group B strep PCR [...] LABORATORY - 01/29/2024 8:46 PM CDT The VISENZE Xpert GBS LB Assay, performed on the [employer], is a qualitative in vitro diagnostic [...] settings. The device is not intended for [id number] use. Lev Alejandro MD LAB - MICRO GENERAL ORDERABLES [facility] Inf. Diseases Diag. Lab [address] [facility], [address] [place] [address] * HIV-1 Antibody (External Result) (07/27/2023 12:27 AM CDT) HIV 1&2 Antibody (External) Negative Nonreactive [facility] 07/27/2023 12:2 7 AM CDT Patient Reported LAB - HIM EXTERNAL R ESULT [facility] [address] [place], [place] [id number] [place] [address] * Hepatitis B Surface Antigen (External Result) (07/27/2023 12:27 AM CDT) Hepatitis B Surface Antigen (External) Negative [facility] 07/27/2023 12:2 7 AM CDT Patient Reported LAB - HIM EXTERNAL R ESULT [facility] [address] [place] [address], [facility] [phone] * Rubella Antibody IgG (External Result) (07/27/2023 12:27 AM CDT) Rubella Antibody IgG (External) Immune Nonreactive [facility] 07/27/2023 12:2 7 AM CDT Patient Reported LAB - HIM EXTERNAL R ESULT Performing Organization Address City/[facility]/ZIP Co de Phone Number [facility] [address] [place] [address], [facility] [phone] documented in this encounter Visit Diagnoses Diagnosis Threatened labor, third trimester- Primary uterine contractions Threatened premature labor, unspecified as to episode of care 34 weeks gestation of state, incidental with history of section, antepartum documented in this encounter Administered Medications Inactive Administered Medications - up to 3 most recent administrations Medication Order MAR Action Action Date Dose Rate Site acetaminophen (TYLENOL) tablet 650 mg 650 mg, Oral, EVERY 4 HOURS PRN, mild pain, fever, headaches, temp greater than or equal to 38 C /100.4 F (oral) or 38.5 C/ 101.4 F (core), Starting on 01/29/24 at 0031, Maximum acetaminophen dose from all sources = 75 mg/kg/day not to exceed 4 grams/day., Antepartum $Given 01/29/2024 5:36 PM CDT 650 mg betamethasone acet & sod phos (CELESTONE) injection 12 mg 12 mg, Intramuscular, ONCE, On 01/29/24 at 2000, For 1 dose, For lung maturity, Antepartum $Given 01/29/2024 8:04 PM CDT 12 mg diphenhydrAMINE (BENADRYL) capsule 25 mg 25 mg, Oral, EVERY 6 HOURS PRN, itching, Starting on 01/29/24 at 0031, Antepartum diphenhydrAMINE (BENADRYL) injection 25 mg 25 mg, Intravenous, EVERY 6 HOURS PRN, itching, Starting on 01/29/24 at 0031, Give IV only if unable to take PO, Antepartum docusate sodium (COLACE) capsule 100 mg 100 mg, Oral, 2 TIMES DAILY, First dose on 01/29/24 at 0800, Hold for loose stools., Antepartum $Given 01/30/2024 8:40 AM CDT 100 mg $Given 01/29/2024 8:04 PM CDT 100 mg $Given 01/29/2024 7:37 AM CDT 100 mg hydrOXYzine HCl (ATARAX) tablet 50 mg 50 mg, Oral, AT BEDTIME PRN, itching, sleep, Starting on 01/29/24 at 0032, Antepartum $Given 01/29/2024 1:16 AM CDT 50 mg lactated ringers infusion at 125 mL/hr, Intravenous, CONTINUOUS, Starting on 01/29/24 at 0100, Until 01/30/24 at 1138 $New Bag 01/29/2024 1:08 AM CDT 125 mL/hr metoclopramide (REGLAN) injection 10 mg 10 mg, Intravenous, Administer over 2 Minutes, EVERY 6 HOURS PRN, nausea, vomiting, Starting on 01/29/24 at 0031, This is Step 1 of OB nausea and vomiting management. Use IV if not tolerating oral therapy. If nausea is not resolved in 30 minutes, go to Step 2 (Zofran). Avoid use if patient has full bowel obstruction or perforation., Antepartum metoclopramide (REGLAN) tablet 10 mg 10 mg, Oral, EVERY 6 HOURS PRN, nausea and vomiting, Starting on 01/29/24 at 0031, This is Step 1 of OB nausea and vomiting management. Preferred route. If nausea is not resolved in 30 minutes, go to Step 2 (Zofran) Avoid use if patient has full bowel obstruction or perforation., Antepartum NIFEdipine (PROCARDIA) capsule 20 mg 20 mg, Oral, EVERY 6 HOURS, First dose on 01/29/24 at 0100, Max duration: 48 hours *NURSE TO SCHEDULE FIRST DOSE to begin 6 hours after any prior doses given to suppress uterine activity.* Maximum NIFEdipine dose = 160 mg/ 24 hours. HOLD if Systolic Blood Pressure less than 90 mmHg and/or Diastolic Blood Pressure less than 50 mmHg., Antepartum $Given 01/29/2024 7:37 AM CDT 20 mg $Given 01/29/2024 1:16 AM CDT 20 mg NIFEdipine (PROCARDIA) capsule 20 mg 20 mg, Oral, EVERY 6 HOURS PRN, other, PRN for contractions, Starting on 01/29/24 at 1100, Max duration: 48 hours *NURSE TO SCHEDULE FIRST DOSE to begin 6 hours after any prior doses given to suppress uterine activity.* Maximum NIFEdipine dose = 160 mg/ 24 hours. HOLD if Systolic Blood Pressure less than 90 mmHg and/or Diastolic Blood Pressure less than 50 mmHg., Antepartum ondansetron (ZOFRAN ODT) ODT tab 4 mg 4 mg, Oral, EVERY 6 HOURS PRN, nausea, vomiting, Starting on 01/29/24 at 0031, This is Step 2 of OB nausea and vomiting management. Preferred route. Give If nausea not resolved in 30 minutes after giving metoclopramide (REGLAN). If nausea is not resolved in 15 minutes, go to Step 3 (Compazine). With dry hands, peel back foil backing and gently remove tablet. Do not push oral disintegrating tablet through foil backing. Administer immediately on tongue and oral disintegrating tablet dissolves in seconds, then swallow with saliva. Liquid not required., Antepartum $Given 01/29/2024 5:36 PM CDT 4 mg ondansetron (ZOFRAN) injection 4 mg 4 mg, Intravenous, EVERY 6 HOURS PRN, nausea, vomiting, Administer over 2-5 Minutes, Starting on 01/29/24 at 0031, This is Step 2 of OB nausea and vomiting management. Use IV if not tolerating oral therapy. Give if nausea not resolved 30 minutes after giving metoclopramide (REGLAN). If nausea is not resolved in 15 minutes, go to Step 3 (Compazine)., Antepartum penicillin G potassium 3 Million Units in D5W 50 mL intermittent infusion Routine, 3 Million Units, Intravenous, EVERY 4 HOURS, First dose on 01/29/24 at 0500, To be given until delivery., Indications: Group B Strep, Antepartum $New Bag 01/29/2024 8:49 AM CDT 3 Million Units 100 mL/hr $New Bag 01/29/2024 5:15 AM CDT 3 Million Units 100 mL/h r penicillin G potassium 5 million units vial to attach to NS 100 mL bag STAT, 5 Million Units, Intravenous, ONCE, On 01/29/24 at 0100, For 1 dose, Loading Dose., Indications: Group B Strep, Antepartum $New Bag 01/29/2024 1:12 AM CDT 5 Million Units multivitamin w/iron per tablet 1 tablet 1 tablet, Oral, DAILY, First dose on 01/29/24 at 0800, Antepartum $Given 01/30/2024 8:40 AM CDT 1 tablet $Given 01/29/2024 7:37 AM CDT 1 tablet prochlorperazine (COMPAZINE) injection 10 mg 10 mg, Intravenous, EVERY 6 HOURS PRN, nausea, vomiting, Administer over 2 Minutes, Starting on 01/29/24 at 0031, This is Step 3 of OB nausea and vomiting management. Use IV if not tolerating oral therapy. Give if nausea not resolved 15 minutes after giving ondansetron (ZOFRAN). If nausea is not resolved in 30 minutes, notify provider., Antepartum prochlorperazine (COMPAZINE) tablet 10 mg 10 mg, Oral, EVERY 6 HOURS PRN, nausea, vomiting, Starting on 01/29/24 at 0031, This is Step 3 of OB nausea and vomiting management. Preferred route. Give if nausea not resolved 15 minutes after giving ondansetron (ZOFRAN). If nausea is not resolved in 30 minutes, notify provider., Antepartum senna-docusate (SENOKOT-S/PERICOLACE) 8.6-50 MG per tablet 1 tablet 1 tablet, Oral, 2 TIMES DAILY, First dose on 01/29/24 at 0800, If no bowel movement in 24 hours, increase to 2 tablets by mouth. Hold for loose stools., Antepartum $Given 01/30/2024 8:40 AM CDT 1 tablet $Given 01/29/2024 8:05 PM CDT 1 tablet $Given 01/29/2024 7:37 AM CDT 1 tablet senna-docusate (SENOKOT-S/PERICOLACE) 8.6-50 MG per tablet 2 tablet 2 tablet, Oral, 2 TIMES DAILY, First dose on 01/29/24 at 0800, Hold for loose stools., Antepartum sodium chloride (PF) 0.9% PF flush 3 mL 3 mL, Intracatheter, EVERY 8 HOURS, First dose on 01/29/24 at 0100, to lock peripheral IV dormant line, Antepartum $Given 01/30/2024 8:42 AM CDT 3 mLs $Given 01/29/2024 8:45 PM CDT 3 mLs sodium chloride (PF) 0.9% PF flush 3 mL 3 mL, Intracatheter, EVERY 1 MIN PRN, line flush, other, to ensure patency or to lock dormant line, Starting on 01/29/24 at 0027, Antepartum $Given 01/29/2024 7:39 AM CDT 3 mLs SUMAtriptan (IMITREX) tablet 25 mg 25 mg, Oral, AT ONSET OF HEADACHE, migraine, Starting on 01/29/24 at 0026, May repeat dose in 2 hours if no relief. Do not exceed 2 doses in 24 hours. $Given 01/29/2024 5:45 PM CDT 25 mg documented in this encounter Active and Recently Administered Medications Times are shown in CDT. Scheduled Medication Order 01/28/2024 01/29/2024 01/30/2024 betamethasone acet & sod phos (CELESTONE) injection 12 mg (COMPLETED) 12 mg, Intramuscular, ONCE, On 01/29/24 at 2000, For 1 dose, For lung maturity, Antepartum 2003 ($Given - Provider: Radha Mendoza, RN) docusate sodium (COLACE) capsule 100 mg 100 mg, Oral, 2 TIMES DAILY, First dose on 01/29/24 at 0800, Hold for loose stools., Antepartum 0737 ($Given - Provider: Ledy Allred, ENOCH)2003 ($Given - Provider: Radha Mendoza, ENOCH) 0840 ($Given - Provider: Daly Quintana, ENOCH) NIFEdipine (PROCARDIA) capsule 20 mg (CANCELED) 20 mg, Oral, EVERY 6 HOURS, First dose on 01/29/24 at 0100, Max duration: 48 hours *NURSE TO SCHEDULE FIRST DOSE to begin 6 hours after any prior doses given to suppress uterine activity.* Maximum NIFEdipine dose = 160 mg/ 24 hours. HOLD if Systolic Blood Pressure less than 90 mmHg and/or Diastolic Blood Pressure less than 50 mmHg., Antepartum 0116 ($Given - Provider: Tristian Rogers RN)0737 ($Given - Provider: Ledy Allred RN) penicillin G potassium 3 Million Units in D5W 50 mL intermittent infusion (CANCELED)(Linked Group 1) Routine, 3 Million Units, Intravenous, EVERY 4 HOURS, First dose on 01/29/24 at 0500, To be given until delivery., Indications: Group B Strep, Antepartum 0515 ($New Bag - Provider: Tristian Rogers RN)0849 ($New Bag - Provider: Ledy Allred RN) penicillin G potassium 5 million units vial to attach to NS 100 mL bag (COMPLETED)(Linked Group 1) STAT, 5 Million Units, Intravenous, ONCE, On 01/29/24 at 0100, For 1 dose, Loading Dose., Indications: Group B Strep, Antepartum 0112 ($New Bag - Provider: Tristian Rogers RN) multivitamin w/iron per tablet 1 tablet 1 tablet, Oral, DAILY, First dose on 01/29/24 at 0800, Antepartum 0737 ($Given - Provider: Ledy Allred RN) 0840 ($Given - Provider: Daly Quintana, ENOCH) senna-docusate (SENOKOT-S/PERICOLACE) 8.6-50 MG per tablet 1 tablet(Linked Group 2) 1 tablet, Oral, 2 TIMES DAILY, First dose on 01/29/24 at 0800, If no bowel movement in 24 hours, increase to 2 tablets by mouth. Hold for loose stools., Antepartum 0737 ($Given - Provider: Ledy Allred RN)2004 ($Given - Provider: Radha Mnedoza, ENOCH) 0840 ($Given - Provider: Daly Quintana, ENOCH) senna-docusate (SENOKOT-S/PERICOLACE) 8.6-50 MG per tablet 2 tablet(Linked Group 2) 2 tablet, Oral, 2 TIMES DAILY, First dose on 01/29/24 at 0800, Hold for loose stools., Antepartum 0737 (See Alternative - Provider: Ledy Allred RN)2004 (See Alternative - Provider: Radha Mendoza, ENOCH) 0840 (See Alternative - Provider: Daly Quintana, ENOCH) sodium chloride (PF) 0.9% PF flush 3 mL 3 mL, Intracatheter, EVERY 8 HOURS, First dose on 01/29/24 at 0100, to lock peripheral IV dormant line, Antepartum 0109 (Not Given - Provider: Tristian Rogers RN - Reason: IV Infusing)0855 (Not Given - Provider: Ledy Allred, ENOCH - Reason: IV Infusing)2045 ($Given - Provider: Radha Mendoza RN) 0115 (Not Given - Provider: Radha Mendoza RN - Reason: Patient sleeping)0842 ($Given - Provider: Daly Quintana, ENOCH) Continuous Medication Order 01/28/2024 01/29/2024 01/30/2024 lactated ringers infusion at 125 mL/hr, Intravenous, CONTINUOUS, Starting on 01/29/24 at 0100, Until 01/30/24 at 1138 0108 ($New Bag - Provider: Nakul Rogers RN)0551 (Stopped - Provider: Tristian Rogers RN) PRN Medication Order 01/28/2024 01/29/2024 01/30/2024 acetaminophen (TYLENOL) tablet 650 mg 650 mg, Oral, EVERY 4 HOURS PRN, mild pain, fever, headaches, temp greater than or equal to 38 C /100.4 F (oral) or 38.5 C/ 101.4 F (core), Starting on 01/29/24 at 0031, Maximum acetaminophen dose from all sources = 75 mg/kg/day not to exceed 4 grams/day., Antepartum 1736 ($Given - Provider: Ledy Allred, ENOCH) bisacodyl (DULCOLAX) suppository 10 mg 10 mg, Rectal, DAILY PRN, constipation, Starting on 01/29/24 at 0030, Hold for loose stools., Antepartum calcium carbonate (TUMS) chewable tablet 1,000 mg 1,000 mg, Oral, EVERY 6 HOURS PRN, heartburn, Starting on 01/29/24 at 0031, If heartburn continues after 2 doses, notify provider. Do NOT administer within 12 hours of scheduled surgical procedure., Antepartum diphenhydrAMINE (BENADRYL) capsule 25 mg(Linked Group 3) 25 mg, Oral, EVERY 6 HOURS PRN, itching, Starting on 01/29/24 at 0031, Antepartum diphenhydrAMINE (BENADRYL) injection 25 mg(Linked Group 3) 25 mg, Intravenous, EVERY 6 HOURS PRN, itching, Starting on 01/29/24 at 0031, Give IV only if unable to take PO, Antepartum hydrOXYzine HCl (ATARAX) tablet 50 mg 50 mg, Oral, AT BEDTIME PRN, itching, sleep, Starting on 01/29/24 at 0032, Antepartum 0116 ($Given - Provider: Jeff Rogers RN) lidocaine (LMX4) cream Topical, EVERY 1 HOUR PRN, pain, with VAD insertion, Starting on 01/29/24 at 0027, Apply at least 30 minutes prior to VAD insertion in divided doses as needed for size of site for insertion. MAX Dose: 2.5 g (?? of 5 g tube) Do NOT give if patient has a history of allergy to any local anesthetic or any giovanna product. Do NOT use both lidocaine intradermal/subcutaneous injection and the lidocaine cream on the same site., Antepartum lidocaine 1 % 0.1-1 mL 0.1-1 mL, Other, EVERY 1 HOUR PRN, mild pain with VAD insertion, Starting on 01/29/24 at 0027, MAX dose 1 mL subcutaneous OR intradermal along the side of the vein in divided doses as needed for VAD insertion. Do NOT give if patient has a history of allergy to any local anesthetic or any giovanna product. Do NOT use both lidocaine intradermal/subcutaneous injection and the lidocaine cream on the same site., Antepartum metoclopramide (REGLAN) injection 10 mg(Linked Group 4) 10 mg, Intravenous, Administer over 2 Minutes, EVERY 6 HOURS PRN, nausea, vomiting, Starting on 01/29/24 at 0031, This is Step 1 of OB nausea and vomiting management. Use IV if not tolerating oral therapy. If nausea is not resolved in 30 minutes, go to Step 2 (Zofran). Avoid use if patient has full bowel obstruction or perforation., Antepartum metoclopramide (REGLAN) tablet 10 mg(Linked Group 4) 10 mg, Oral, EVERY 6 HOURS PRN, nausea and vomiting, Starting on 01/29/24 at 0031, This is Step 1 of OB nausea and vomiting management. Preferred route. If nausea is not resolved in 30 minutes, go to Step 2 (Zofran) Avoid use if patient has full bowel obstruction or perforation., Antepartum NIFEdipine (PROCARDIA) capsule 20 mg 20 mg, Oral, EVERY 6 HOURS PRN, other, PRN for contractions, Starting on 01/29/24 at 1100, Max duration: 48 hours *NURSE TO SCHEDULE FIRST DOSE to begin 6 hours after any prior doses given to suppress uterine activity.* Maximum NIFEdipine dose = 160 mg/ 24 hours. HOLD if Systolic Blood Pressure less than 90 mmHg and/or Diastolic Blood Pressure less than 50 mmHg., Antepartum ondansetron (ZOFRAN ODT) ODT tab 4 mg(Linked Group 5) 4 mg, Oral, EVERY 6 HOURS PRN, nausea, vomiting, Starting on 01/29/24 at 0031, This is Step 2 of OB nausea and vomiting management. Preferred route. Give If nausea not resolved in 30 minutes after giving metoclopramide (REGLAN). If nausea is not resolved in 15 minutes, go to Step 3 (Compazine). With dry hands, peel back foil backing and gently remove tablet. Do not push oral disintegrating tablet through foil backing. Administer immediately on tongue and oral disintegrating tablet dissolves in seconds, then swallow with saliva. Liquid not required., Antepartum 1736 ($Given - Provider: Ledy Allred RN) ondansetron (ZOFRAN) injection 4 mg(Linked Group 5) 4 mg, Intravenous, EVERY 6 HOURS PRN, nausea, vomiting, Administer over 2-5 Minutes, Starting on 01/29/24 at 0031, This is Step 2 of OB nausea and vomiting management. Use IV if not tolerating oral therapy. Give if nausea not resolved 30 minutes after giving metoclopramide (REGLAN). If nausea is not resolved in 15 minutes, go to Step 3 (Compazine)., Antepartum 1736 (See Alternative - Provider: Ledy Allred, ENOCH) prochlorperazine (COMPAZINE) injection 10 mg(Linked Group 6) 10 mg, Intravenous, EVERY 6 HOURS PRN, nausea, vomiting, Administer over 2 Minutes, Starting on 01/29/24 at 0031, This is Step 3 of OB nausea and vomiting management. Use IV if not tolerating oral therapy. Give if nausea not resolved 15 minutes after giving ondansetron (ZOFRAN). If nausea is not resolved in 30 minutes, notify provider., Antepartum prochlorperazine (COMPAZINE) tablet 10 mg(Linked Group 6) 10 mg, Oral, EVERY 6 HOURS PRN, nausea, vomiting, Starting on 01/29/24 at 0031, This is Step 3 of OB nausea and vomiting management. Preferred route. Give if nausea not resolved 15 minutes after giving ondansetron (ZOFRAN). If nausea is not resolved in 30 minutes, notify provider., Antepartum simethicone (MYLICON) chewable tablet 160 mg 160 mg, Oral, EVERY 6 HOURS PRN, other, abdominal gas, Starting on 01/29/24 at 0032, MAX: 480 mg (6 tabs)/24h, Antepartum sodium chloride (PF) 0.9% PF flush 3 mL 3 mL, Intracatheter, EVERY 1 MIN PRN, line flush, other, to ensure patency or to lock dormant line, Starting on 01/29/24 at 0027, Antepartum 0739 ($Given - Provider: Ledy Allred, ENOCH) sodium phosphate (FLEET ENEMA) 1 enema 1 enema, Rectal, DAILY PRN, constipation, Starting on 01/29/24 at 0030, Use if bisacodyl not effective Hold for loose stools unless being administered as part of a bowel prep regimen prior to a procedure., Antepartum SUMAtriptan (IMITREX) tablet 25 mg 25 mg, Oral, AT ONSET OF HEADACHE, migraine, Starting on 01/29/24 at 0026, May repeat dose in 2 hours if no relief. Do not exceed 2 doses in 24 hours. 1746 ($Given - Provider: Ledy Allred RN) Linked Groups Order Group 1: penicillin G potassium 5 million units vial to attach to NS 100 mL bag (COMPLETED)Jump to med STAT, 5 Million Units, Intravenous, ONCE, On 01/29/24 at 0100, For 1 dose, Loading Dose., Indications: Group B Strep, Antepartum Followed by penicillin G potassium 3 Million Units in D5W 50 mL intermittent infusion (CANCELED)Jump to med Routine, 3 Million Units, Intravenous, EVERY 4 HOURS, First dose on 01/29/24 at 0500, To be given until delivery., Indications: Group B Strep, Antepartum Group 2: senna-docusate (SENOKOT-S/PERICOLACE) 8.6-50 MG per tablet 1 tabletJump to med 1 tablet, Oral, 2 TIMES DAILY, First dose on 01/29/24 at 0800, If no bowel movement in 24 hours, increase to 2 tablets by mouth. Hold for loose stools., Antepartum Or senna-docusate (SENOKOT-S/PERICOLACE) 8.6-50 MG per tablet 2 tabletJump to med 2 tablet, Oral, 2 TIMES DAILY, First dose on 01/29/24 at 0800, Hold for loose stools., Antepartum Group 3: diphenhydrAMINE (BENADRYL) capsule 25 mgJump to med 25 mg, Oral, EVERY 6 HOURS PRN, itching, Starting on 01/29/24 at 0031, Antepartum Or diphenhydrAMINE (BENADRYL) injection 25 mgJump to med 25 mg, Intravenous, EVERY 6 HOURS PRN, itching, Starting on 01/29/24 at 0031, Give IV only if unable to take PO, Antepartum Group 4: metoclopramide (REGLAN) tablet 10 mgJump to med 10 mg, Oral, EVERY 6 HOURS PRN, nausea and vomiting, Starting on 01/29/24 at 0031, This is Step 1 of OB nausea and vomiting management. Preferred route. If nausea is not resolved in 30 minutes, go to Step 2 (Zofran) Avoid use if patient has full bowel obstruction or perforation., Antepartum Or metoclopramide (REGLAN) injection 10 mgJump to med 10 mg, Intravenous, Administer over 2 Minutes, EVERY 6 HOURS PRN, nausea, vomiting, Starting on 01/29/24 at 0031, This is Step 1 of OB nausea and vomiting management. Use IV if not tolerating oral therapy. If nausea is not resolved in 30 minutes, go to Step 2 (Zofran). Avoid use if patient has full bowel obstruction or perforation., Antepartum Group 5: ondansetron (ZOFRAN ODT) ODT tab 4 mgJump to med 4 mg, Oral, EVERY 6 HOURS PRN, nausea, vomiting, Starting on 01/29/24 at 0031, This is Step 2 of OB nausea and vomiting management. Preferred route. Give If nausea not resolved in 30 minutes after giving metoclopramide (REGLAN). If nausea is not resolved in 15 minutes, go to Step 3 (Compazine). With dry hands, peel back foil backing and gently remove tablet. Do not push oral disintegrating tablet through foil backing. Administer immediately on tongue and oral disintegrating tablet dissolves in seconds, then swallow with saliva. Liquid not required., Antepartum Or ondansetron (ZOFRAN) injection 4 mgJump to med 4 mg, Intravenous, EVERY 6 HOURS PRN, nausea, vomiting, Administer over 2-5 Minutes, Starting on 01/29/24 at 0031, This is Step 2 of OB nausea and vomiting management. Use IV if not tolerating oral therapy. Give if nausea not resolved 30 minutes after giving metoclopramide (REGLAN). If nausea is not resolved in 15 minutes, go to Step 3 (Compazine)., Antepartum Group 6: prochlorperazine (COMPAZINE) tablet 10 mgJump to med 10 mg, Oral, EVERY 6 HOURS PRN, nausea, vomiting, Starting on 01/29/24 at 0031, This is Step 3 of OB nausea and vomiting management. Preferred route. Give if nausea not resolved 15 minutes after giving ondansetron (ZOFRAN). If nausea is not resolved in 30 minutes, notify provider., Antepartum Or prochlorperazine (COMPAZINE) injection 10 mgJump to med 10 mg, Intravenous, EVERY 6 HOURS PRN, nausea, vomiting, Administer over 2 Minutes, Starting on 01/29/24 at 0031, This is Step 3 of OB nausea and vomiting management. Use IV if not tolerating oral therapy. Give if nausea not resolved 15 minutes after giving ondansetron (ZOFRAN). If nausea is not resolved in 30 minutes, notify provider., Antepartum documented in this encounter Care Teams Environmental Science Professor Relationship Specialty Start Date End Date No Ref-Primary, Physician PCP - General 06/19/19 01/28/24 Shalonda Barrett MD [facility] [address] [place] [address] PCP - General Family Medicine 01/29/24 documented as of this encounter
--- OUTSIDE RECORDS SUMMARY | 2024-02-01 11:36 | XMS_ITS ---
Author Organization [place] Address [address] [place] [address] Care Team Providers Care Estate Conservator Name Role Phone Shalonda Barrett MD Primary Care Provider + Transitional Care Management Status:Enrolled (Active) Start date:01/31/2024 Enrollment date:01/31/2024 Continued Care and Services Coordination
--- OUTSIDE RECORDS SUMMARY | 2024-02-01 11:36 | XMS_ITS | Encounter Summary ---
Author Organization [facility] Address [address] [place] [address] Care Team Providers Care Ballistics Tester Name Role Phone Elsewhere, Pcp Primary Care Provider Unavailabl e Reason for Visit * Reason Comments Sore Throat Pt presents w/throat pain onset last night, denies cough and fever. Encounter Details Date Type Department Care Team (Late st Contact Info) Description 01/11/2024 5:07 PM CDT - 01/11/2024 6:48 PM CDT Emergency [facility] [address] [place] [address] Alvino Christianson, PDedraA.-Amena., P.A. [address] [phone] Pharyngitis Acute (Primary Dx) Discharge Disposition: Home or Self Care Social History Tobacco Use Types Packs/Day Years Used Date Smoking Tobacco: Never Passive Smoke Exposure: Never Smokeless Tobacco: Never Alcohol Use Standard Drinks/Week Comments No 0 (1 standard drink = 0.6 oz pur e alcohol) [facility] Utilities Answer Date Recorded In [...] often do you attend chur ch or hoahaoism services? Never 07/14/2022 Do you belong to [...] medical care, and heating? Somewhat hard 07/14/2022 [facility] [place] of Occupat ional Health - Occupational Stress [...] your living situation today? [facility] 08/17/2023 Education Answer [...] HOURS NEEDED FOR NAUSEA AND VOMITING 07/27/2023 qnhszeo-Ql-swsz-FA (VINATE ONE) 60 mg iron-1 mg per [...] P.A. LAB M ICROBIOLOGY - GENERAL ORDERABLES [facility] [address] [place] [address], [facility] [address] [place] [address] documented in this encounter Visit Diagnoses Diagnosis Pharyngitis Acute- Primary documented in this encounter Care Teams Ballistics Tester Relationship Specialty Start Date End Date Elsewhere, Pcp PCP - General 08/30/21 documented as of this encounter
--- OUTSIDE RECORDS SUMMARY | 2024-02-01 11:36 | XMS_ITS | Clinical Summary ---
Author Organization [facility] Address [place], [place] [address] Care Team Providers Care Sustainability Manager Name Role Phone [facility], [facility] Primary Care Pr ovider Allergies No [...] Relation Name Comments Bipolar disorder Brother 1 [place] Thyroid Disease Brother 1 Eran Good Health [...] Comments Blood Pressure 118/72 06/30/2022 2:37 PM ELECTROLYSIS INVESTIGATOR Pulse 83 06/30/2022 2:37 PM ELECTROLYSIS INVESTIGATOR Temperature 36.9 ??C (98.4 ??F) 12/25/2021 4:00 PM CD T Respiratory Rate 16 12/25/2021 4:00 PM CDT Oxygen Saturation 98% 12/25/2021 4:00 PM CDT Inhaled Oxygen Concentration - - Weight 52.2 kg (115 lb) 06/30/2022 2:37 PM ELECTROLYSIS INVESTIGATOR Height 162.6 cm (5' 4) 12/25/2021 [...] Procedure Name Priority Date/Time Associated Diagnosis Comments SPRINKLING SYSTEM IRRIGATOR THIN PREP PAP SCREEN IMAGED Routine 03/24/2023 12:00 PM ELECTROLYSIS INVESTIGATOR from Last 3 Months or Most Recently Relevant to Health Maintenance Results * SPRINKLING SYSTEM IRRIGATOR THIN PREP PAP SCREEN IMAGED (03/24/2023 12:00 PM ELECTROLYSIS INVESTIGATOR) Case Report Gynecologic Cytology Report ? Case: [id number] ? Authorizing Provider: ??Harmony Colon ?Collected: ? 03/24/2023 1200 ? MD Lennie ? Ordering Location: ? [facility] ?Received: ?03/28/2023 1655 ? First Screen: ?Nino Dimas ? Specimen: ?SPRINKLING SYSTEM IRRIGATOR ThinPrep Vial Screening, Cervical ? 04/07/2023 1:26 PM ELECTROLYSIS INVESTIGATOR [facility] INTERPRETATION/ RESULT NEGATIVE FOR INTRAEPITHELIAL LESION OR MALIGNANCY (NIL) (none) 04/07/2023 1:26 PM ELECTROLYSIS INVESTIGATOR [facility] IMEN ADEQUACY Satisfactory for evaluation Endocervical component present 04/07/2023 1:26 PM ELECTROLYSIS INVESTIGATOR [facility] HPV REQUEST HPV not requested 2022 1:26 PM ELECTROLYSIS INVESTIGATOR [facility] Date of LMP 03/05/2023 04/07/2023 1:26 PM ELECTROLYSIS INVESTIGATOR [facility] Abnormal Pap or [place] Bx in last 5 years No 04/07/2023 1:26 PM ELECTROLYSIS INVESTIGATOR [facility] Menstrual Status Irregular Periods 04/07/2023 1:26 PM ELECTROLYSIS INVESTIGATOR [facility] [place] Bx Done Today No 04/07/2023 1:26 PM ELECTROLYSIS INVESTIGATOR [facility] Additional Information 04/07/2023 1:26 PM ELECTROLYSIS INVESTIGATOR [facility] Comment: Interpreted at [facility] - [address] [place] [id number] Automated Review Successful 04/07/2023 1:26 PM ELECTROLYSIS INVESTIGATOR [facility] Comment:Specimen processed s uccessfully by automated buffer nickel device, ThinPrep Imaging System, [employer] Note The pap test is a screening technique, not a diagnostic procedure. It is used primarily to screen for squamous cancers and precursor lesions. Published studies have shown that it is subject to both false negative and false positive results. The pap test should not be used as the sole means to diagnose or exclude pre-malignant and malignant lesions. 04/07/2023 1:26 PM ELECTROLYSIS INVESTIGATOR [facility] Other (Cervical) 03/24/2023 12:00 PM ELECTROLYSIS INVESTIGATOR 03/28/2023 4:55 PM ELECTROLYSIS INVESTIGATOR Harmony Colon MD PATHOLOGY/ CYTOLOGY [facility] [employer] [facility] [address] [place] [address], [place] from Last 3 Months or Most Recently Relevant to Health Maintenance Care Teams Sustainability Manager Relationship Specialty Start Date End Date Clinic, [facility] [address] [place] [address] PCP - General 12/19/23
--- OUTSIDE RECORDS SUMMARY | 2024-02-01 11:36 | XMS_ITS | Encounter Summary ---
Author Organization [place] Address [address] [place] [address]. [place] [address] Care Team Providers Care Concrete Panel Installer Name Role Phone Shalonda Barrett MD Primary Care Provider + Encounter Details Date Type Department Care Team (Latest Contact Info) Description 01/29/2024 Travel Social History Tobacco Use Types Packs/Day Years [...] in an abandoned building, in an overnight fpc, or couch-surfing.) Yes 01/28/2024 Are you worried [...] on file documented as of this encounter Plan of Treatment Not on file documented as of this encounter Visit Diagnoses Not on filedocumented in this encounter Care Teams Concrete Panel Installer Relationship Specialty Start Date End Date Shalonda Barrett MD [facility] & [address] [address] PCP - General Family Medicine 01/29/24 documented as of this encounter
--- OUTSIDE RECORDS SUMMARY | 2024-02-01 11:36 | XMS_ITS | Encounter Summary ---
Author Organization [facility] Address [address] [place] [address] Care Team Providers Care Wood Box Maker Name Role Phone Elsewhere, Pcp Primary Care [...] CDT - 12/06/2023 7:30 PM CDT Emergency [facility] [address] [place] [phone] Benny Cuevas M.D. [address] [place] [phone] Migraine Headache (Primary Dx); 27 Weeks Gestation (HCC) Discharge Disposition: Home or Self Care Social History Tobacco Use Types Packs/Day Years Used Date Smoking Tobacco: Never Passive Smoke Exposure: Never Smokeless Tobacco: Never Alcohol Use Standard Drinks/Week Comments No 0 (1 standard drink = 0.6 oz pur e alcohol) [facility] Utilities Answer Date Recorded In the [...] How often do you attend chur or mormonism services? Never 07/14/2022 Do you belong to any clubs o r organizations such as yazidi groups, unions, fraternal or athletic groups, or [...] medical care, and heating? Somewhat hard 07/14/2022 [facility] [place] of Occupat ional Health - Occupational Stress [...] you are . Follow up with your claim analyst if your headache isn't improving by tomorrow. * Attachments The following attachments cannot be sent through Care Everywhere. * Migraine Headache (Chinese) documented in this encounter Medications at Time of Discharge Medication Sig Dispensed Refills Start Date End Date docosahexaenoic acid 200 mg capsule Take by mouth. 07/27/2023 ferrous sulfate (IRON ORAL) Take by mouth. ondansetron ODT (ZOFRAN-ODT) 4 mg disintegrating tablet DISSOLVE ONE TABLET BY MOUTH EVERY 8 HOURS NEEDED FOR NAUSEA AND VOMITING 07/27/2023 aezexdx-Pd-cxgw-FA (VINATE ONE) 60 mg iron-1 mg per [...] Headache 2. 27 Weeks Gestation ([facility]) ED Disposition Discharge ED Prescriptions Medication Sig Dispense Start Date End Date Auth. Provider promethazine (Phenergan) 25 mg tablet Take 1 tablet (25 mg total) by mouth every 6 (six) hours as needed for nausea or vomiting (Headache). 15 tablet 12/06/2023 -- Benny Cuevas M.D. Notes are completed with voice recognition dictation software. Errors are generally corrected in real-time. Please message me via [employer] In Basket if you note any areas [...] R.N.) documented in this encounter Care Teams Wood Box Maker Relationship Specialty Start Date End Date Elsewhere, Pcp PCP - General 08/30/21 documented as of this encounter
--- OUTSIDE RECORDS SUMMARY | 2024-02-01 11:36 | XMS_ITS | Encounter Summary ---
Author Organization [place] Address [facility] [place] [address] Care Team Providers Care Hand Binder Stripper Name Role Phone No Ref-Primary, Physician Primary Care Provider Shalonda Barrett MD Primary Care Provider + Reason for Visit * Auth/Cert (Routine) Specialty Diagnoses / Procedures Referred By Berkley lubin Referred To Contact magnetic testing technician Diagnoses Maternity*TONYA: * Labor uterine contractions Ur [facility] [address] [place] [address] Referral ID Status Reason Start Date Expiration Date Visits Re quested Visits Authorized [id number] 1 1 Encounter Details Date Type Department Care Team (Late st Contact Info) Description 01/28/2024 Hospital Encounter [facility] [address] [place] [address] Claus Herman MD [address] [facility] [address] [place] [address] Social History Tobacco Use Types Packs/Day Years [...] in an abandoned building, in an overnight fdc, or couch-surfing.) Yes 01/28/2024 Are you worried [...] on filedocumented in this encounter Care Teams Hand Binder Stripper Relationship Specialty Start Date End Date No Ref-Primary, Physician PCP - General 06/19/19 01/28/24 Shalonda Barrett MD [address] [address] PCP - General Family Medicine 01/29/24 documented as of this encounter
--- OUTSIDE RECORDS SUMMARY | 2024-02-01 11:36 | XMS_ITS | Clinical Summary ---
Author Organization [facility] Address [address] [place] [address] Care Team Providers Care Sharepoint Web Developer Name Role Phone Elsewhere, Pcp Primary Care Provider Unavailabl e Source Comments Patient records contain information from all sites at [facility]. For routine questions regarding patient records, call [phone] during business hours, M-F 8:00 AM - 5:00 PM Central Time. Record requests for emergency care only can be directed to [phone] at any time.[facility] Allergies Active Allergy Reactions Criticality Noted Date Comments Ondansetron GI intolerance 06/08/2022 ODT and liquid forms only, cause n/v. Tolerates IV and oral pill formulations. Medications Medication Sig Dispensed Refills Start Date End Date Status dosxalt-Dq-zxvn-FA (VINATE ONE) 60 mg iron-1 mg per [...] CDT - 01/11/2024 6:48 PM CDT Emergency [facility] [address] [place] [phone] Alvino Christianson P.A.-C., P.A. Pharyngitis Acute (Primary Dx) Discharge Disposition: Home or Self Care 12/06/2023 6:50 PM CDT - 12/06/2023 7:30 PM CDT Emergency [facility] [address] [place] [phone] Benny Cuevas M.D. Migraine Headache (Primary Dx); 27 Weeks Gestation (HCC) Discharge Disposition: Home or Self Care 12/06/2023 6:30 PM CDT Office Visit Urgent Care, [facility], in [place], [place] [address] [place] [phone] Ana Laura Block P.A.-C., P.A. Procedure And [...] oz pur e alcohol) [facility] Utilities Answer Date Recorded In the past 12 months has e [employer], [employer], or water [employer] threatened to shut off services in your [...] How often do you attend chur or christian services? Never 07/14/2022 Do you belong to any clubs o r organizations such as latter day groups, unions, fraternal or athletic groups, or [...] care, and heating? Somewhat hard 07/14/2022 [facility] of Occupat ional Health - Occupational [...] your living situation today? I have a [facility] place to live 08/17/2023 Education Answer [...] P.A. LAB M ICROBIOLOGY - GENERAL ORDERABLES [facility] NAMED [facility] [address] [place] [address], [facility] [address] [place] [address] from Last 3 Months Care Teams Sharepoint Web Developer Relationship Specialty Start Date End Date Elsewhere, Pcp PCP - General 08/30/21
--- OUTSIDE RECORDS SUMMARY | 2024-02-01 11:36 | XMS_ITS ---
Author Organization [facility] Address [address] [place] [address] Care Team Providers Care Slunk Skin Curer Name Role Phone Unavailable Unavailable Unavailable Surgery Details Not on file Complications Check Surgery Details section. Procedure Estimated Blood Loss Check Surgery Details section. Procedure Findings Check Surgery Details section. Procedure Specimens Taken Check Surgery Details section.
== END 2024-02-01 11:33 | disposition home or self-care (01) ==
PROVIDERS: PCP Family Medicine; Visit Provider Obstetrics & Gynecology
DX: Z34.93 Encounter for supervision of normal pregnancy, unspecified, third trimester (principal); Z3A.35 35 weeks gestation of pregnancy
CPT/HCPCS: 83520; 84436; 84439; 84443; 84445

== ENCOUNTER 2024-02-10 13:05 | Outpatient (CLI) | payer MEDICAID, SELFPAY ==
--- NOTE | 2024-02-10 13:00 | CRLHL7_ITS ---
For Patients: As a result of the Century Cures Act, medical imaging exams and procedure reports are released immediately into your electronic medical record. You may view this report before your referring provider. If you have questions, please contact your health care provider. INDICATION: Third trimester scan, evaluate growth. desires TOLAC COMPARISON: 11/23/2023 TECHNIQUE: Real time medel scale imaging of the fetus was performed. FINDINGS: Sonographic imaging demonstrates a single living intrauterine gestation. Fetus demonstrates a regular cardiac rate of 155 beats per minute. Fetus has a vertex position. The placenta lies posteriorly. Amniotic fluid volume appears normal and there is a single deepest vertical pocket: 5.2 cm. The estimated weight is 3024gm which lies at the 63rd %. On the prior OB ultrasound exam dated 10/18/2023 the estimated weight was at the 74th%. BPD 85th percentile. HC 48th percentile. AC 78th percentile. FL 22nd percentile. The HC/AC ratio measures 0.99 range (0.92-1.05). IMPRESSION: Sonographic gestational age 36 weeks 6 days and a sonographic due date of 03/03/2024. Good correlation with dates. Estimated weight is 63rd percentile. Abdominal circumference 78th percentile. Dictated by Omar Keen MD @ 02/12/2024 10:29:17 PM (Electronically Signed)
--- OUTSIDE RECORDS SUMMARY | 2024-02-10 13:11 | XMS_ITS | Referral Summary ---
Author Organization [facility] Address [address] [place] [address] Care Team Providers Care Pneumatic Tester Name Role Phone Elsewhere, Pcp Primary Care Provider Unavailabl e Source Comments Patient records contain information from all sites at [facility]. For routine questions regarding patient records, call [phone] during business hours, M-F 8:00 AM - 5:00 PM Central Time. Record requests for emergency care only can be directed to [phone] at any time.[facility] Encounters Date Type Department Care Team Description 01/11/2024 5:07 PM CDT - 01/11/2024 6:48 PM CDT Emergency [facility] [address] [place] [phone] Alvino Christianson P.A.-C., P.A. Pharyngitis Acute (Primary Dx) Discharge Disposition: Home or Self Care 12/06/2023 6:50 PM CDT - 12/06/2023 7:30 PM CDT Emergency [facility] [address] [place] [phone] Benny Cuevas M.D. Migraine Headache (Primary Dx); 27 Weeks Gestation (HCC) Discharge Disposition: Home or Self Care 12/06/2023 6:30 PM CDT Office Visit Urgent Care, [facility], in [place], [place] [address] [place] [phone] Ana Laura Block P.A.-C., P.A. Procedure And [...] Dispensed Refills Start Date End Date Status goaekrz-Ht-rfdg-FA (VINATE ONE) 60 mg iron-1 mg per [...] = 0.6 oz pur e alcohol) [facility] Utilities Answer Date Recorded In the past 12 months has e [employer], [employer], or water [employer] threatened to shut off services in your [...] medical care, and heating? Somewhat hard 07/14/2022 [facility] of Occupat ional Health - Occupational [...] your living situation today? I have a [facility] place to live 08/17/2023 Education Answer Date [...] P.ADedra LAB M ICROBIOLOGY - GENERAL ORDERABLES [facility] [address] [place] [address], [facility] NPRG [facility] [address] [place] [address] from Last 3 Months Care Teams Pneumatic Tester Relationship Specialty Start Date End Date Elsewhere, Pcp PCP - General 08/30/21
--- OUTSIDE RECORDS SUMMARY | 2024-02-10 13:11 | XMS_ITS ---
Author Organization [facility] Address [address] [place] [address] Care Team Providers Care Traffic Reporter Name Role Phone Shalonda Barrett MD Primary Care Provider + Transitional Care Management Status:Enrolled (Active) Start date:01/31/2024 Enrollment date:01/31/2024 Continued Care and Services Coordination
--- OUTSIDE RECORDS SUMMARY | 2024-02-10 13:11 | XMS_ITS | Encounter Summary ---
Author Organization [facility] Address [address] [place] [address] Care Team Providers Care Machinist Name Role Phone Elsewhere, Pcp Primary Care Provider Unavailabl e Reason for Visit * Reason Comments Sore Throat Pt presents w/throat pain onset last night, denies cough and fever. Encounter Details Date Type Department Care Team (Late st Contact Info) Description 01/11/2024 5:07 PM CDT - 01/11/2024 6:48 PM CDT Emergency [facility] [address] [place] [address] Alvino Christianson, PDedraA.-Amena., P.A. [address] [phone] Pharyngitis Acute (Primary Dx) Discharge Disposition: Home or Self Care Social History Tobacco Use Types Packs/Day Years Used Date Smoking Tobacco: Never Passive Smoke Exposure: Never Smokeless Tobacco: Never Alcohol Use Standard Drinks/Week Comments No 0 (1 standard drink = 0.6 oz pur e alcohol) [facility] Utilities Answer Date Recorded In the [...] often do you attend chur ch or jew services? Never 07/14/2022 Do you belong to [...] medical care, and heating? Somewhat hard 07/14/2022 [facility] [place] of Occupat ional Health - Occupational Stress [...] HOURS NEEDED FOR NAUSEA AND VOMITING 07/27/2023 jeamgpt-Sx-enkx-FA (VINATE ONE) 60 mg iron-1 mg per [...] P.A. LAB M ICROBIOLOGY - GENERAL ORDERABLES [facility] [address] [place] [address], [facility] NPRG [facility] [address] [place] [address] documented in this encounter Visit Diagnoses Diagnosis Pharyngitis Acute- Primary documented in this encounter Care Teams Machinist Relationship Specialty Start Date End Date Elsewhere, Pcp PCP - General 08/30/21 documented as of this encounter
--- OUTSIDE RECORDS SUMMARY | 2024-02-10 13:11 | XMS_ITS | Clinical Summary ---
Author Organization [facility] Address [address] [place] [address] Care Team Providers Care Business Office Technology Instructor Name Role Phone Elsewhere, Pcp Primary Care Provider Unavailabl e Source Comments Patient records contain information from all sites at [facility]. For routine questions regarding patient records, call [phone] during business hours, M-F 8:00 AM - 5:00 PM Central Time. Record requests for emergency care only can be directed to [phone] at any time.[facility] Allergies Active Allergy Reactions Criticality Noted Date Comments Ondansetron GI intolerance 06/08/2022 ODT and liquid forms only, cause n/v. Tolerates IV and oral pill formulations. Medications Medication Sig Dispensed Refills Start Date End Date Status oyztzbo-Jq-aspb-FA (VINATE ONE) 60 mg iron-1 mg per [...] CDT - 01/11/2024 6:48 PM CDT Emergency [facility] [address] [place] [phone] Alvino Christianson P.A.-C., P.A. Pharyngitis Acute (Primary Dx) Discharge Disposition: Home or Self Care 12/06/2023 6:50 PM CDT - 12/06/2023 7:30 PM CDT Emergency [facility] [address] [place] [phone] Benny Cuevas M.D. Migraine Headache (Primary Dx); 27 Weeks Gestation (HCC) Discharge Disposition: Home or Self Care 12/06/2023 6:30 PM CDT Office Visit Urgent Care, [facility], in [place], [place] [address] [place] [phone] Ana Laura Block P.A.-C., P.A. Procedure And [...] drink = 0.6 oz pur e alcohol) [facility] Utilities Answer Date Recorded In the past 12 months has e [employer], [employer], or water [employer] threatened to shut off services in your [...] medical care, and heating? Somewhat hard 07/14/2022 [facility] of Occupat ional Health - [...] your living situation today? I have a [facility] place to live 08/17/2023 Education Answer [...] P.A. LAB M ICROBIOLOGY - GENERAL ORDERABLES [facility] [address] [place] [address], [facility] NPRG [facility] [address] [place] [address] from Last 3 Months Care Teams Business Office Technology Instructor Relationship Specialty Start Date End Date Elsewhere, Pcp PCP - General 08/30/21
--- OUTSIDE RECORDS SUMMARY | 2024-02-10 13:11 | XMS_ITS | Encounter Summary ---
Author Organization [place] Address [facility] [place] [address] Care Team Providers Care Transitional Kindergarten Teacher Name Role Phone No Ref-Primary, Physician Primary Care Provider Shalonda Barrett MD Primary Care Provider + Reason for Visit * Auth/Cert (Routine) Specialty Diagnoses / Procedures Referred By Berkley lubin Referred To Contact golf course patroller Diagnoses Maternity*TONYA: * Labor uterine contractions Ur [address] [place] [address] Referral ID Status Reason Start Date Expiration Date Visits Re quested Visits Authorized [id number] 1 1 Encounter Details Date Type Department Care Team (Late st Contact Info) Description 01/28/2024 Hospital Encounter [facility] [address] [place] [address] Claus Herman MD [address] [facility] [address] [place] [address] Social History Tobacco Use Types [...] in an abandoned building, in an overnight long term, or couch-surfing.) Yes 01/28/2024 Are you worried [...] on filedocumented in this encounter Care Teams Transitional Kindergarten Teacher Relationship Specialty Start Date End Date No Ref-Primary, Physician PCP - General 06/19/19 01/28/24 Shalonda Barrett MD [address] [address] PCP - General Family Medicine 01/29/24 documented as of this encounter
--- OUTSIDE RECORDS SUMMARY | 2024-02-10 13:11 | XMS_ITS | Clinical Summary ---
Author Organization [place] Address [address] [place] [address]. [place] [address] Care Team Providers Care Cigarette Tipper Name Role Phone Shalonda Barrett MD Primary [...] Description 01/29/2024 11:59 PM CDT Anesthesia Event [facility] [address] [facility] [phone] Claus House MD 01/29/2024 Travel 01/28/2024 10:53 PM CDT - 01/30/2024 9:38 AM CDT Hospital Encounter [facility] [address] [place] [phone] Claus Herman MD Discharge Disposition: Home or Self Care 01/28/2024 Hospital Encounter [facility] [address] [phone] Claus Herman MD from Last 3 Months [...] CDT Oxygen Saturation 96% 06/19/2019 11:22 PM NATIONAL SALES ASSOCIATE Inhaled Oxygen Concentration - - Weight 60.9 kg (134 lb 3.2 oz) 01/29/2024 7:35 A M CDT Height 162.6 cm (5' 4) 06/19/2019 8:51 PM NATIONAL SALES ASSOCIATE Body Mass Index 23.04 06/19/2019 8:51 PM NATIONAL SALES ASSOCIATE Plan of Treatment Health Maintenance Due Date [...] Procedure Name Priority Date/Time Associated Diagnosis Comments [facility] US COMPREHENSIVE SINGLE Routine 01/30/2024 8:25 [...] ? Study Date: ??01/30/2024 7:08am Pat. NO: ??[id number] ?Referring ??MD: ROSA BARBA Site: ? Gymnastic Coach: Vicky Alvarado RDMS : ??2000 ?Age: ?? 23 ----- INDICATION ----- Inpatient. labor. METHOD ----- [facility] ANTEPARTUM inpatient exam. Transabdominal ultrasound [...] lb 15 ?oz EFW by ? Hadlock ([id number]) Head / Face / Neck Biometry: Trim Machine Operator ?4.3 ? mm CM ? [...] view. RVOT view. LVOT view. 3-vessel view. 9-yyawjq-dwnrixq view. Situs. Aortic arch view. Bicaval view. [...] GARCIA Study Date: 01/30/2024 7:08am Pat. NO: [id number] Referring MD: ROSA BARBA Site: Gymnastic Coach: Vicky Alvarado RDMS : 2000 Age: 23 ----- INDICATION ----- Inpatient. labor. METHOD ----- [facility] ANTEPARTUM inpatient exam. Transabdominal ultrasound [...] EFW (lb,oz) 5 lb 15oz EFW by Hadlock([id number]) Head / Face / Neck Biometry: Trim Machine Operator 4.3mm CM 6.3mm Nasal bone 10.4mm ANATOMY ----- The following structures appear normal: Head / Neck Cranium. Head size. Head shape.Lateral ventricles. Choroid plexus. Midline falx. Cavum septi pellucidi.Cerebellum. Cisterna magna. Parenchyma. Thalami. Vermis. Neck. Face Lips. Profile. Nose. Maxilla.Mandible. Orbits. Lens. Heart / Thorax 4-chamber view. RVOT view. LVOT view.3-vessel view. 6-zyilrs-lyynaae view. Situs. Aortic arch view. Bicavalview. Ductal [...] appeared normal. Jessa Zacarias MD [facility] US ORDERABLE S * (ABNORMAL) CBC with platelets (01/29/2024 10:06 AM CDT) [facility] Signature WBC Count 9.9 4.0 - 11.0 [...] - BLOOD ORDERABL ES Performing Organization Address City/[facility]/ZIP Co de Phone Number UR LABORATORY [facility] Acute Care Lab [facility], Room [address] * Adult Type and Screen (01/29/2024 12:56 AM CDT) ABO/RH(D) O POS 01/29/2024 12:34 AM CDT UR BLOOD BANK Antibody Screen Negative Negative 01/29/2024 12:34 AM CDT UR BLOOD BANK SPECIMEN EXPIRATION DATE [id number] 01/29/2024 12:34 AM CDT UR BLOOD BANK Blood STRUCTURE OF RIGHT UPPER LIMB / Unknown Venipuncture / Unknown 01/29/2024 12:56 AM CDT 01/29/2024 1:02 AM CDT Lev Alejandro MD LAB - BLOOD BANK RICHARD T ORDER Performing Organization Address [facility] Co de Phone Number UR BLOOD BANK [facility] Blood Components Lab [address] [place] [address], Room [place] [id number] * (ABNORMAL) UA with Microscopic reflex [...] 01/29/2024 1:05 AM CDT UR LABORATORY Specific [place] Urine 1.009 1.003 - 1.035 01/29/2024 1:05 [...] [facility] [address] [facility], [address] [place] [address] * Chlamydia trachomatis/Neisseria gonorrhoeae by PCR (01/29/2024 12:38 AM CDT) Chlamydia Trachomatis Negative Negative 01/29/2024 11:09 AM CDT [facility] Comment: Negative for C. trachomatis rRNA by respiratory director mediated amplification. A negative result by respiratory director mediated amplification does not preclude the presence of infection because results are dependent on proper and adequate collection, absence of inhibitors and sufficient rRNA to be detected. Neisseria gonorrhoeae Negative Negative 01/29/2024 11:09 AM CDT [facility] Comment:Negative for N. gono rrhoeae rRNA by respiratory director mediated amplification. A negative result by respiratory director mediated amplification does not preclude the presence of C. trachomatis infection because results are dependent on proper and adequate collection, absence of inhibitors and sufficient rRNA to be detected. Swab CERVIX UTERI STRUCTURE / Unknown Non-blood Collection / Unknown 01/29/2024 12:38 AM CDT 01/29/2024 12:45 AM CDT Lev Alejandro MD LAB - MICRO GENERAL ORDERABLES [facility] Inf. Diseases Diag. Lab [address] [facility], [address] [place] [address], [facility] * (ABNORMAL) Wet prep (01/29/2024 12:38 AM [...] LAB - MICRO GENERAL ORDERABLES UR LABORATORY [facility] Acute Care Lab [address] [facility], [address] [place] [address], [facility] * Group B strep PCR (01/29/2024 12:38 [...] LABORATORY - 01/29/2024 8:46 PM CDT The [employer] Xpert GBS LB Assay, performed on the [employer], is a qualitative in vitro diagnostic [...] or monitor treatment for GBS infections. The [employer] Xpert GBS LB Assay is intended for use in hospital, reference or state laboratory settings. The device is not intended for fiarn-ee-xjzh use. Lev Alejandro MD LAB - MICRO GENERAL ORDERABLES [facility] Inf. Diseases Diag. Lab [address] [facility], [address] [place] [address] * HIV-1 Antibody (External Result) (07/27/2023 12:27 AM CDT) HIV 1&2 Antibody (External) Negative Nonreactive [facility] 07/27/2023 12:2 7 AM CDT Patient Reported LAB - HIM EXTERNAL R ESULT [facility] [address] [place], [place] [address] [phone] from Last 3 Months or Most Recently Relevant to Health Maintenance Advance Directives For more information, please contact: [phone] * Full Code (Latest Code Status on File) Date Activated Date Inactivated Comments 01/29/2024 12:33 AM 01/30/2024 11:44 AM All basic and advanced life-sustaining interventions are performed as appropriate Question Answer Comments Code status determined by: Discussion with patie nt/ legal decision maker Care Teams Cigarette Tipper Relationship Specialty Start Date End Date Shalonda Barrett MD [facility] [address] [place] [address] PCP - General Family Medicine 01/29/24
--- OUTSIDE RECORDS SUMMARY | 2024-02-10 13:11 | XMS_ITS ---
Author Organization [facility] Address [address] [place] [address] Care Team Providers Care Traffic Chief Name Role Phone Unavailable Unavailable Unavailable Surgery Details Not on file Complications Check Surgery Details section. Procedure Estimated Blood Loss Check Surgery Details section. Procedure Findings Check Surgery Details section. Procedure Specimens Taken Check Surgery Details section.
--- OUTSIDE RECORDS SUMMARY | 2024-02-10 13:11 | XMS_ITS | Encounter Summary ---
Author Organization [place] Address [address] [place] [address]. [place] [address] Care Team Providers Care Communications Administrator Name Role Phone Shalonda Barrett MD Primary Care Provider + Encounter Details Date Type Department Care Team (Late st Contact Info) Description 01/29/2024 11:59 PM CDT Anesthesia Event [facility] Birthplace [address] [place] [phone] Claus House MD [address] [place] [id number] Anesthesia Record Procedure Summary Procedure Name [...] on filedocumented in this encounter Care Teams Communications Administrator Relationship Specialty Start Date End Date Shalonda Barrett MD [facility] [place] [address] PCP - General Family Medicine 01/29/24 documented as of this encounter
--- OUTSIDE RECORDS SUMMARY | 2024-02-10 13:11 | XMS_ITS | Encounter Summary ---
Author Organization [place] Address [facility] [place] [address] Care Team Providers Care General Laborer Name Role Phone No Ref-Primary, Physician Primary Care Provider Shalonda Barrett MD Primary Care Provider + Reason for Visit * Reason Comments Labor * Auth/Cert (Routine) Specialty Diagnoses / Procedures Referred By Contac t Referred To Contact cota Diagnoses Maternity*TONYA: * Labor uterine contractions Ur [facility] [address] [place] [address] Referral ID Status Reason Start Date Expiration Date Visits Re quested Visits Authorized [id number] 1 1 Encounter Details Date Type Department Care Team (Latest Contact Info) Description 01/28/2024 10:53 PM CDT - 01/30/2024 9:38 AM CDT Hospital Encounter [facility] [address] [place] [address] Claus Herman MD [address] [place] [address] Discharge Disposition: Home or Self [...] Body Mass Index 23.04 06/19/2019 8:51 PM MUSIC ARTIST documented in this encounter Discharge Summaries * Jessa Zacarias MD - 01/30/2024 9:28 AM CDT [place] [facility] Discharge Summary Sid Garcia Age: [age] [...] presents as a transfer of care from [facility] with concerns for labor. She started to notice back pain and frequent abdominal tightening this morning (01/27). She thought it was [place] contractions so continued with her planned [...] swelling, generalized unwell feeling Jessa Zacarias MD Digester Hand PGY-3 01/30/24 9:31 AM Associated attestation - [...] Where can you learn more? Go to https://www.Kony.net/patiented Enter N531 in the search box to learn more about Learning About When to Call Your Doctor During (After 20 Weeks). Current as of: November 15, 2022 Content Version: 14.1 ?? [employer]. Care instructions adapted under license by your healthcare professional. If you have questions about a medical condition or this instruction, always ask your healthcare professional. [employer], [employer] disclaims any warranty or liability for your [...] bpm, mod variability, accelerations present, no decelerations Edie: 0 contractions/10 minutes Imaging: [facility] US COMPREHENSIVE (01/30/24) IMPRESSION 1. Thomas [...] concern for labor as a ROBER form [place]. Her has been notable for: - History of delivery (failure to progress, second stage) - H/o hemorrhage requiring blood transfusion, Bakri balloon - Anemia - GCT elevated, normal GTT - Factor V Leiden heterozygote - Rubella equivocal - Migraines # C/f Labor Presented with painful uterine contractions to [place]. Workup at outside hospital concerning for possible increasing cervical effacement so transfer was recommended for higher level NICU cares. At presentation to [facility], infectious workup unremarkable including negative wet prep, [...] infection, injury to surrounding organs, injury to infant, and the potential need for another surgery [...] and discussed with Dr. Claus Zacarias MD Digester Hand PGY-3 01/30/24 8:42 AM Associated attestation - Claus Herman MD - 01/30/2024 11:30 AM CDT Physician Attestation I saw this patient with the resident and agree with the resident/fellow's findings and plan of careas documented in the note. [place] findings: Patient is a 23 YO at 34w6d who presented as transport from [facility] 01/28/2024 for concerns of threatened labor in the setting of late period and history of LTCS desiring TOLAC. Since admission the cervix remains unchanged and the patient is noting less contractions today. She has taken no further nifedipine. The fetus is reassuring on FHR monitoring. US today is reassuring and normal. The patient is comfortable with discharge to follow up with [facility] OB team. 25 MINUTES SPENT [...] bpm, mod variability, accelerations present, no decelerations Edie: 2 contractions/10 minutes Assessment/Plan Abrial Douglas Garcia is a 23 year old @ 34w5d by LMP c/w 8w1d US, admitted with concern for labor as a ROBER form [place]. Her has been notable for: - History of delivery (failure to progress, second stage) - H/o hemorrhage requiring blood transfusion, Bakri balloon - Anemia - GCT elevated, normal GTT - Factor V Leiden heterozygote - Rubella equivocal - Migraines # C/f Labor Presented with painful uterine contractions to [place]. Workup at outside hospital concerning for possible increasing cervical effacement so transfer was recommended for higher level NICU cares. At presentation to [facility], infectious workup unremarkable including negative wet prep, [...] infection, injury to surrounding organs, injury to infant, and the potential need for another surgery [...] and discussed with Dr. Claus Zacarias MD Digester Hand PGY-3 01/29/24 11:02 AM Associated attestation - Claus Herman MD - 01/29/2024 11:39 AM CDT Physician Attestation I saw this patient with the resident and agree with the resident/fellow's findings and plan of careas documented in the note. [place]ems findings: Patient is a 23 YO at 34w5d who presented as transport from [facility] last evening for concerns of [...] OK for OP management and delivery at [place] after 35 weeks. Likely discontinue tomorrow am. [...] on exam, still posterior. Lev Alejandro MD INDUSTRIAL SAFETY AND HEALTH SPECIALIST PGY-3 01/29/2024 7:15 AM documented in this encounter H&P Notes * Lev Alejandro MD - 01/28/2024 11:34 PM CDT Images from the original note were not included. Antepartum History and Physical January 29, 2024 Sid Garcia [id number] HPI Sid Garcia is a 23 year old at 34w4d by LMP c/w 8w1d US who presents as a transfer ofcare from [facility] with concerns for labor. She started to notice back pain and frequent abdominal tightening this morning (01/27). She thought it was [place] contractions so continued with her planned [...] 100 mg 100 mg Oral BID Lev Aleajndro MD hydrOXYzine HCl (ATARAX) tablet 50 mg [...] Physical Activity: Sufficiently Active (08/17/2023) Received from [facility] Exercise Vital Sign Days of Exercise per Week: 5 days Minutes of Exercise per Session: 60 min Stress: No Stress Concern Present (07/14/2022) Received from [facility] [employer] [place] [employer] - Occupational Stress Questionnaire Feeling of Stress : Only a little Social Connections: Socially Isolated (07/14/2022) Received from [facility] Social Connection and Isolation Panel [NHANES] Frequency of Communication with Friends and Family: More than three times a week Frequency of Social Gatherings with Friends and Family: Once a week Attends [employer]: Never Active Member of Clubs or [...] 150 bpm, moderate variability, accelerations present, nodecelerations Edie: 3-4 contractions in 10 minutes Impression: Category [...] Ketones Urine 100 (A) Negative mg/dL Specific [place] Urine 1.009 1.003 - 1.035 Blood Urine [...] Abnormality Status --------- ------ Adult Type and Screen[[id number]] Final result Please view results for these tests on the individual orders. Adult Type and Screen Result Value Ref Range ABO/RH(D) O POS Antibody Screen Negative Negative SPECIMEN EXPIRATION DATE [id number] Imaging Not available in system. Assessment/Plan 23 year old at 34w5d by LMP consistent with 8w1d US, transferred to [facility] for NICU cares in the setting of [...] course - BMZ: s/p first dose at [place] 01/27 at 2108 - Magnesium not indicated [...] supervision of Dr. Herman. Lev Alejandro MD INDUSTRIAL SAFETY AND HEALTH SPECIALIST PGY-3 01/29/2024 4:34 AM Associated attestation - Claus Herman MD - 01/29/2024 11:33 AM CDT Physician Attestation I did not see the patient on this date. [facility] with the [facility]. [...] PM CDT Patient arrived via ambulance from [facility] at 2255 and admitted to room 458. [...] Procedure Name Priority Date/Time Associated Diagnosis Comments [facility] US COMPREHENSIVE SINGLE Routine 01/30/2024 8:25 [...] ? Study Date: ??01/30/2024 7:08am Pat. NO: ??[id number] ?Referring ??MD: ROSA BARBA Site: ? Grey Stock Recorder: Vicky Alvarado RDMS : ??2000 ?Age: ?? 23 ----- INDICATION ----- Inpatient. labor. METHOD ----- [facility] ANTEPARTUM inpatient exam. Transabdominal ultrasound examination. View: [...] lb 15 ?oz EFW by ? Hadlock ([id number]) Head / Face / Neck Biometry: Restaurant And Bar Manager ?4.3 ? mm CM ? 6.3 ? [...] view. RVOT view. LVOT view. 3-vessel view. 8-plsoxn-kvxrwmq view. Situs. Aortic arch view. Bicaval view. [...] GARCIA Study Date: 01/30/2024 7:08am Pat. NO: [id number] Referring MD: ROSA BARBA Site: [place] Recorder: Vicky Alvarado RDMS : 2000 Age: 23 ----- INDICATION ----- Inpatient. labor. METHOD ----- [facility] ANTEPARTUM inpatient exam. Transabdominal ultrasound examination.View: Sufficient [...] EFW (lb,oz) 5 lb 15oz EFW by Hadlock([id number]) Head / Face / Neck Biometry: Restaurant And Bar Manager 4.3mm CM 6.3mm Nasal bone 10.4mm ANATOMY ----- The following structures appear normal: Head / Neck Cranium. Head size. Head shape.Lateral ventricles. Choroid plexus. Midline falx. Cavum septi pellucidi.Cerebellum. Cisterna magna. Parenchyma. Thalami. Vermis. Neck. Face Lips. Profile. Nose. Maxilla.Mandible. Orbits. Lens. Heart / Thorax 4-chamber view. RVOT view. LVOT view.3-vessel view. 6-yfvols-vbhihrw view. Situs. Aortic arch view. Bicavalview. Ductal [...] fluid volume appeared normal. Jessa Zacarias MD [facility] US ORDERABLE S * (ABNORMAL) CBC with platelets (01/29/2024 10:06 AM CDT) [facility] Signature WBC Count 9.9 4.0 - [...] - BLOOD ORDERABL ES UR LABORATORY [facility] Acute Care Lab [facility], [address] [place] [phone] * Adult Type and Screen (01/29/2024 12:56 AM CDT) ABO/RH(D) O POS 01/29/2024 12:34 AM CDT UR BLOOD BANK Antibody Screen Negative Negative 01/29/2024 12:34 AM CDT UR BLOOD BANK SPECIMEN EXPIRATION DATE [id number] 01/29/2024 12:34 AM CDT UR BLOOD BANK Blood STRUCTURE OF RIGHT UPPER LIMB / Unknown Venipuncture / Unknown 01/29/2024 12:56 AM CDT 01/29/2024 1:02 AM CDT Lev Alejandro MD LAB - BLOOD BANK RICHARD T ORDER Performing Organization Address [facility]/ZIP Co de Phone Number UR BLOOD BANK [facility] Blood Components Lab [address] [place] [address], Room [place] [phone] * (ABNORMAL) UA with Microscopic [...] 01/29/2024 1:05 AM CDT UR LABORATORY Specific [place] Urine 1.009 1.003 - 1.035 01/29/2024 1:05 [...] - URINE ORDERABL ES UR LABORATORY [facility] Acute Care Lab [address] [facility], [address] [place] [address], [facility] * Chlamydia trachomatis/Neisseria gonorrhoeae by PCR (01/29/2024 12:38 AM CDT) Chlamydia Trachomatis Negative Negative 01/29/2024 11:09 AM CDT [facility] Comment: Negative for C. trachomatis rRNA by paper supervisor mediated amplification. A negative result by paper supervisor mediated amplification does not preclude the presence of infection because results are dependent on proper and adequate collection, absence of inhibitors and sufficient rRNA to be detected. Neisseria gonorrhoeae Negative Negative 01/29/2024 11:09 AM CDT [facility] Comment:Negative for N. gono rrhoeae rRNA by paper supervisor mediated amplification. A negative result by paper supervisor mediated amplification does not preclude the presence of C. trachomatis infection because results are dependent on proper and adequate collection, absence of inhibitors and sufficient rRNA to be detected. Swab CERVIX UTERI STRUCTURE / Unknown Non-blood Collection / Unknown 01/29/2024 12:38 AM CDT 01/29/2024 12:45 AM CDT Lev Alejandro MD LAB - MICRO GENERAL ORDERABLES [facility] Inf. Diseases Diag. Lab [address] [facility], [address] [place] [address], [facility] * (ABNORMAL) Wet prep (01/29/2024 12:38 AM [...] LAB - MICRO GENERAL ORDERABLES UR LABORATORY [facility] Acute Care Lab [address] [facility], [address] [place] [address], [facility] * Group B strep PCR (01/29/2024 12:38 [...] LABORATORY - 01/29/2024 8:46 PM CDT The Tigerspike Xpert GBS LB Assay, performed on the [employer], is a qualitative in vitro diagnostic [...] settings. The device is not intended for eqbqc-kd-dyww use. Lev Alejandro MD LAB - MICRO GENERAL ORDERABLES [facility] Inf. Diseases Diag. Lab [address] [facility], [address] [place] [address] * HIV-1 Antibody (External Result) (07/27/2023 12:27 AM CDT) HIV 1&2 Antibody (External) Negative Nonreactive [facility] 07/27/2023 12:2 7 AM CDT Patient Reported LAB - HIM EXTERNAL R ESULT [facility] [address] [place], [place] [id number] [place] [address] * Hepatitis B Surface Antigen (External Result) (07/27/2023 12:27 AM CDT) Hepatitis B Surface Antigen (External) Negative [facility] 07/27/2023 12:2 7 AM CDT Patient Reported LAB - HIM EXTERNAL R ESULT [facility] [address] [place] [address], [facility] [phone] * Rubella Antibody IgG (External Result) (07/27/2023 12:27 AM CDT) Rubella Antibody IgG (External) Immune Nonreactive [facility] 07/27/2023 12:2 7 AM CDT Patient Reported LAB - HIM EXTERNAL R ESULT Performing Organization Address City/[facility]/ZIP Co de Phone Number [facility] [address] [place] [address], [facility] [phone] documented in this encounter Visit Diagnoses Diagnosis [...] lung maturity, Antepartum 2003 ($Given - Provider: Rahda Mendoza, RN) docusate sodium (COLACE) capsule 100 [...] IV Infusing)0855 (Not Given - Provider: Ledy Allrde, ENOCH - Reason: IV Infusing)2045 ($Given - [...] not exceed 2 doses in 24 hours. 1747 ($Given - Provider: Ledy Allred RN) Linked [...] Antepartum documented in this encounter Care Teams General Laborer Relationship Specialty Start Date End Date No Ref-Primary, Physician PCP - General 06/19/19 01/28/24 Shalonda Barrett MD [facility] [address] [place] [address] PCP - General Family Medicine 01/29/24 documented as of this encounter
--- OUTSIDE RECORDS SUMMARY | 2024-02-10 13:11 | XMS_ITS | Referral Summary ---
Author Organization [place] Address [address] [place] [address]. [place] [address] Care Team Providers Care Guest Services Assistant Name Role Phone Shalonda Barrett MD Primary Care Provider + Encounters Date Type Department Care Team Description 01/28/2024 10:53 PM CDT - 01/30/2024 9:38 AM CDT Hospital Encounter [facility] [address] [place] [address] [place] [address] Claus Herman MD Discharge Disposition: Home or Self Care 01/29/2024 11:59 PM CDT Anesthesia Event [facility] [address] [place] [address] [place] [address] Claus House MD 01/29/2024 Travel 01/28/2024 Hospital Encounter [facility] [address] [place] [address] [place] [address] Claus Herman MD from Last 3 Months [...] in an abandoned building, in an overnight assisted, or couch-surfing.) Yes 01/28/2024 Are you worried [...] Oxygen Saturation 96% 06/19/2019 11:22 PM MACHINE SHOP SPECIALIST Inhaled Oxygen Concentration - - Weight 60.9 kg (134 lb 3.2 oz) 01/29/2024 7:35 A M CDT Height 162.6 cm (5' 4) 06/19/2019 8:51 PM MACHINE SHOP SPECIALIST Body Mass Index 23.04 06/19/2019 8:51 PM MACHINE SHOP SPECIALIST Plan of Treatment Not on file Procedures Procedure Name Priority Date/Time Associated Diagnosis Comments [facility] COMPREHENSIVE SINGLE Routine 01/30/2024 8:25 [...] ? Study Date: ??01/30/2024 7:08am Pat. NO: ??[id number] ?Referring ??: ROSA BARBA Site: ? Overnight Caregiver: Vicky Alvarado RDMS : ??2000 ?Age: ?? 23 ----- INDICATION ----- Inpatient. labor. METHOD ----- [facility] ANTEPARTUM inpatient exam. Transabdominal ultrasound examination. [...] lb 15 ?oz EFW by ? Hadlock ([id number]) Head / Face / Neck Biometry: Retail Agent ?4.3 ? mm CM ? 6.3 ? [...] view. RVOT view. LVOT view. 3-vessel view. 4-dqhuaf-gcmidpf view. Situs. Aortic arch view. Bicaval view. [...] DONAHUE Study Date: 01/30/2024 7:08am Pat. NO: [id number] Referring MD: ROSA BARBA Site: Overnight Caregiver: Vicky Alvarado RDMS : 2000 Age: 23 ----- INDICATION ----- Inpatient. labor. METHOD ----- [facility]TE[facility] inpatient exam. Transabdominal ultrasound examination.View: [...] EFW (lb,oz) 5 lb 15oz EFW by Hadlock([id number]) Head / Face / Neck Biometry: Retail Agent 4.3mm CM 6.3mm Nasal bone 10.4mm ANATOMY ----- The following structures appear normal: Head / Neck Cranium. Head size. Head shape.Lateral ventricles. Choroid plexus. Midline falx. Cavum septi pellucidi.Cerebellum. Cisterna magna. Parenchyma. Thalami. Vermis. Neck. Face Lips. Profile. Nose. Maxilla.Mandible. Orbits. Lens. Heart / Thorax 4-chamber view. RVOT view. LVOT view.3-vessel view. 4-zjkvfy-mqfamhz view. Situs. Aortic arch view. Bicavalview. Ductal [...] CBC with platelets (01/29/2024 10:06 AM CDT) [facility] WBC Count 9.9 4.0 - 11.0 10e3/uL [...] [facility] Acute Care Lab [address] [facility], [address] [place] [address] * Adult Type and Screen (01/29/2024 12:56 AM CDT) ABO/RH(D) O POS 01/29/2024 12:34 AM CDT UR BLOOD BANK Antibody Screen Negative Negative 01/29/2024 12:34 AM CDT UR BLOOD BANK SPECIMEN EXPIRATION DATE [id number] 01/29/2024 12:34 AM CDT UR BLOOD BANK Blood STRUCTURE OF RIGHT UPPER LIMB / Unknown Venipuncture / Unknown 01/29/2024 12:56 AM CDT 01/29/2024 1:02 AM CDT Lev Alejandro MD LAB - BLOOD BANK RICHARD T ORDER UR BLOOD BANK [facility] [place] Blood Components Lab [address] [facility], [address] [place] [address], [facility] * (ABNORMAL) UA with Microscopic reflex to [...] 01/29/2024 1:05 AM CDT UR LABORATORY Specific [place] Urine 1.009 1.003 - 1.035 01/29/2024 1:05 [...] LAB - URINE ORDERABL ES UR LABORATORY [facility] Acute Care Lab [address] [facility], [address] [place] [address] * Chlamydia trachomatis/Neisseria gonorrhoeae by PCR (01/29/2024 12:38 AM CDT) Chlamydia Trachomatis Negative Negative 01/29/2024 11:09 AM CDT [facility] Comment: Negative for C. trachomatis rRNA by key attendant mediated amplification. A negative result by key attendant mediated amplification does not preclude the presence of infection because results are dependent on proper and adequate collection, absence of inhibitors and sufficient rRNA to be detected. Neisseria gonorrhoeae Negative Negative 01/29/2024 11:09 AM CDT [facility] Comment:Negative for N. gono rrhoeae rRNA by key attendant mediated amplification. A negative result by key attendant mediated amplification does not preclude the presence of C. trachomatis infection because results are dependent on proper and adequate collection, absence of inhibitors and sufficient rRNA to be detected. Swab CERVIX UTERI STRUCTURE / Unknown Non-blood Collection / Unknown 01/29/2024 12:38 AM CDT 01/29/2024 12:45 AM CDT Lev Alejandro MD LAB - MICRO GENERAL ORDERABLES [facility] Inf. Diseases Diag. Lab [address] [facility], [address] [place] [address] * (ABNORMAL) Wet prep (01/29/2024 12:38 AM [...] LAB - MICRO GENERAL ORDERABLES UR LABORATORY [facility] Acute Care Lab [address] [facility], [address] [place] [address], [facility] * Group B strep PCR (01/29/2024 12:38 [...] Xpert GBS LB Assay, performed on the [employer], is a qualitative in vitro [...] settings. The device is not intended for uwdea-ao-tcwa use. Lev Alejandro MD LAB - MICRO GENERAL ORDERABLES [facility] Inf. Diseases Diag. Lab [address] [facility], [address] [place] [address], [facility] * HIV-1 Antibody (External Result) (07/27/2023 12:27 AM CDT) HIV 1&2 Antibody (External) Negative Nonreactive [facility] 07/27/2023 12:2 7 AM CDT Patient Reported LAB - HIM EXTERNAL R ESULT [address] [address], [facility] [phone] from Last 3 Months or Most Recently Relevant to Health Maintenance Advance Directives For more information, please contact: [phone] * Full Code (Latest Code Status on File) Date Activated Date Inactivated Comments 01/29/2024 12:33 AM 01/30/2024 11:44 AM All basic and advanced life-sustaining interventions are performed as appropriate Question Answer Comments Code status determined by: Discussion with froylane nt/ legal decision maker Care Teams Guest Services Assistant Relationship Specialty Start Date End Date Shalonda Barrett MD [facility] [address] [place] [address] PCP - General Family Medicine 01/29/24
--- OUTSIDE RECORDS SUMMARY | 2024-02-10 13:11 | XMS_ITS | Encounter Summary ---
Author Organization [place] Address [address] [place] [address]. [place] [address] Care Team Providers Care Magazine Editor Name Role Phone Shalonda Barrett MD Primary [...] an abandoned building, in an overnight senior care, or couch-surfing.) Yes 01/28/2024 Are you worried [...] on filedocumented in this encounter Care Teams Magazine Editor Relationship Specialty Start Date End Date Shalonda Barrett MD [facility] & [address] [address] PCP - General Family Medicine 01/29/24 documented as of this encounter
--- OUTSIDE RECORDS SUMMARY | 2024-02-10 13:12 | XMS_ITS | Encounter Summary ---
Author Organization [facility] Address [address] [place] [address] Care Team Providers Care Tool Room Attendant Name Role Phone Elsewhere, Pcp Primary [...] CDT - 12/06/2023 7:30 PM CDT [facility] [address] [place] [phone] Benny Cuevas M.D. [address] [place] [address] Migraine Headache (Primary Dx); 27 Weeks Gestation (HCC) Discharge Disposition: Home or Self Care Social History Tobacco Use Types Packs/Day Years Used Date Smoking Tobacco: Never Passive Smoke Exposure: Never Smokeless Tobacco: Never Alcohol Use Standard Drinks/Week Comments No 0 (1 standard drink = 0.6 oz pur e alcohol) [facility] Utilities Answer Date Recorded In the [...] How often do you attend chur or sikhism services? Never 07/14/2022 Do you belong to [...] medical care, and heating? Somewhat hard 07/14/2022 [facility] [place] of Occupat ional Health - Occupational Stress [...] your living situation today? I have a [facility] place to live 08/17/2023 Education Answer [...] you are . Follow up with your pilot teacher if your headache isn't improving by tomorrow. * Attachments The following attachments cannot be sent through Care Everywhere. * Migraine Headache (Japanese) documented in this encounter Medications at Time of Discharge Medication Sig Dispensed Refills Start Date End Date docosahexaenoic acid 200 mg capsule Take by mouth. 07/27/2023 ferrous sulfate (IRON ORAL) Take by mouth. ondansetron ODT (ZOFRAN-ODT) 4 mg disintegrating tablet DISSOLVE ONE TABLET BY MOUTH EVERY 8 HOURS NEEDED FOR NAUSEA AND VOMITING 07/27/2023 wxortci-Ec-iapu-FA (VINATE ONE) 60 mg iron-1 mg per [...] 1. Migraine Headache 2. 27 Weeks Gestation ([facility]) ED Disposition Discharge ED Prescriptions [...] corrected in real-time. Please message me via [employer] In Basket if you note any areas requiring clarification. Benny Ceuvas M.D. 12/08/23 0121 documented in this encounter [...] R.N.) documented in this encounter Care Teams Tool Room Attendant Relationship Specialty Start Date End Date Elsewhere, Pcp PCP - General 08/30/21 documented as of this encounter
--- OUTSIDE RECORDS SUMMARY | 2024-02-10 13:12 | XMS_ITS | Encounter Summary ---
Author Organization [facility] Address [address] [place] [address] Care Team Providers Care Asbestos Worker Helper Name Role Phone Elsewhere, Pcp Primary Care Provider Unavailabl e Encounter Details Date Type Department Care Team (Late st Contact Info) Description 12/06/2023 6:30 PM CDT Office Visit Urgent Care, [facility], in [place], [place] [address] [place] [phone] Ana Laura Block, [facility] [address] [place] [phone] Procedure And Treatment Not Carried Out Due To Patient Leaving Prior To Being Seen By Health Care Provider (Primary Dx) Discharge Disposition: Home or Self Care Social History Tobacco Use Types Packs/Day Years Used Date Smoking Tobacco: Never Passive Smoke Exposure: Never Smokeless Tobacco: Never Alcohol Use Standard Drinks/Week Comments No 0 (1 standard drink = 0.6 oz pur e alcohol) [facility] Utilities Answer Date Recorded In the past 12 months has Ahead, gas, oil, or water [employer] threatened to shut off services in your [...] medical care, and heating? Somewhat hard 07/14/2022 [facility] [place] of Occupat ional Health - Occupational Stress [...] your living situation today? I have a [facility] place to live 08/17/2023 Education Answer [...] Primary documented in this encounter Care Teams Asbestos Worker Helper Relationship Specialty Start Date End Date Elsewhere, Pcp PCP - General 08/30/21 documented as of this encounter
--- OUTSIDE RECORDS SUMMARY | 2024-02-10 13:12 | XMS_ITS | Clinical Summary ---
Author Organization [facility] Address [place], [place] [address] Care Team Providers Care Alarm Adjuster Name Role Phone [facility] Primary Care Pr ovider Allergies [...] Brother 1 Eran Thyroid Disease Brother 1 [place] Good Health Brother 2 Dseai Good Health Father GI Disease Maternal Aunt [...] disease Relation Name Status Comments Brother 1 [place] Alive Brother 2 Desai Alive Father Maternal [...] Comments Blood Pressure 118/72 06/30/2022 2:37 PM JUSTICE PROFESSOR Pulse 83 06/30/2022 2:37 PM JUSTICE PROFESSOR Temperature 36.9 ??C (98.4 ??F) 12/25/2021 4:00 PM CD T Respiratory Rate 16 12/25/2021 4:00 PM CDT Oxygen Saturation 98% 12/25/2021 4:00 PM CDT Inhaled Oxygen Concentration - - Weight 52.2 kg (115 lb) 06/30/2022 2:37 PM JUSTICE PROFESSOR Height 162.6 cm (5' 4) 12/25/2021 4:00 [...] Procedure Name Priority Date/Time Associated Diagnosis Comments WEIGH BOX TENDER THIN PREP PAP SCREEN IMAGED Routine 03/24/2023 12:00 PM JUSTICE PROFESSOR from Last 3 Months or Most Recently Relevant to Health Maintenance Results * WEIGH BOX TENDER THIN PREP PAP SCREEN IMAGED (03/24/2023 12:00 PM JUSTICE PROFESSOR) Case Report Gynecologic Cytology Report ? Case: [id number] ? Authorizing Provider: ??Harmony Colon ?Collected: ? 03/24/2023 1200 ? MD Lennie ? Ordering Location: ? [facility] ?Received: ?03/28/2023 1655 ? First Screen: ?Nino Dimas ? Specimen: ?WEIGH BOX TENDER ThinPrep Vial Screening, Cervical ? 04/07/2023 1:26 PM JUSTICE PROFESSOR [facility] INTERPRETATION/ RESULT NEGATIVE FOR INTRAEPITHELIAL LESION OR MALIGNANCY (NIL) (none) 04/07/2023 1:26 PM JUSTICE PROFESSOR [facility] IMEN ADEQUACY Satisfactory for evaluation Endocervical component present 04/07/2023 1:26 PM JUSTICE PROFESSOR [facility] HPV REQUEST HPV not requested 2022 1:26 PM JUSTICE PROFESSOR [facility] Date of LMP 03/05/2023 04/07/2023 1:26 PM JUSTICE PROFESSOR [facility] Abnormal Pap or [place] Bx in last 5 years No 04/07/2023 1:26 PM JUSTICE PROFESSOR [facility] Menstrual Status Irregular Periods 04/07/2023 1:26 PM JUSTICE PROFESSOR [facility] [place] Bx Done Today No 04/07/2023 1:26 PM JUSTICE PROFESSOR [facility] Additional Information 04/07/2023 1:26 PM JUSTICE PROFESSOR [facility] Comment: Interpreted at [facility] - [address] [place] [id number] Automated Review Successful 04/07/2023 1:26 PM JUSTICE PROFESSOR [facility] Comment:Specimen processed s uccessfully by automated boat assembler device, ThinPrep Imaging System, [employer] Note The pap test is a screening technique, not a diagnostic procedure. It is used primarily to screen for squamous cancers and precursor lesions. Published studies have shown that it is subject to both false negative and false positive results. The pap test should not be used as the sole means to diagnose or exclude pre-malignant and malignant lesions. 04/07/2023 1:26 PM JUSTICE PROFESSOR [facility] Other (Cervical) 03/24/2023 12:00 PM JUSTICE PROFESSOR 03/28/2023 4:55 PM JUSTICE PROFESSOR Harmony Colon MD PATHOLOGY/ CYTOLOGY [facility] i.Meter [facility] [address] [place] [address], [place] from Last 3 Months or Most Recently Relevant to Health Maintenance Care Teams Alarm Adjuster Relationship Specialty Start Date End Date Clinic, [facility] [address] [place] [address] PCP - General 12/19/23
== END 2024-02-10 13:06 | disposition home or self-care (01) ==
LOC: US 13:05
PROVIDERS: PCP Family Medicine; Visit Provider Obstetrics & Gynecology
DX: Z34.93 Encounter for supervision of normal pregnancy, unspecified, third trimester (principal); Z3A.36 36 weeks gestation of pregnancy
CPT/HCPCS: 76816

== ENCOUNTER 2024-02-18 21:35 | Observation (INO) | payer MEDICAID, SELFPAY ==
[2024-02-18] VITALS (24 sets, daily range): BP systolic 117–121; BP diastolic 76–79; PULSE 76–102; TEMP 36.6; O2SAT 97–100
--- OUTSIDE RECORDS SUMMARY | 2024-02-18 18:12 | XMS_ITS | Encounter Summary ---
Author Organization [place] Address [address] [place] [address]. [place] [address] Care Team Providers Care Perinatal Instructor Name Role Phone Shalonda Barrett MD Primary [...] in an abandoned building, in an overnight jail, or couch-surfing.) Yes 01/28/2024 Are you worried [...] on filedocumented in this encounter Care Teams Perinatal Instructor Relationship Specialty Start Date End Date Shalonda Barrett MD [facility] & [address] [address] PCP - General Family Medicine 01/29/24 documented as of this encounter
--- OUTSIDE RECORDS SUMMARY | 2024-02-18 18:12 | XMS_ITS | Encounter Summary ---
Author Organization [place] Address [facility] [place] [address] Care Team Providers Care Mix Maker Name Role Phone No Ref-Primary, Physician Primary Care Provider Shalonda Barrett MD Primary Care Provider + Reason for Visit * Reason Comments Labor * Auth/Cert (Routine) Specialty Diagnoses / Procedures Referred By Contac t Referred To Contact fishing gear mechanic Diagnoses Maternity*TONYA: * Labor uterine contractions Ur [facility] [address] [place] [address] Referral ID Status Reason Start Date Expiration Date Visits Re quested Visits Authorized [id number] 1 1 Encounter Details Date Type Department Care Team (Latest Contact Info) Description 01/28/2024 10:53 PM CDT - 01/30/2024 9:38 AM CDT Hospital Encounter [facility] [address] [place] [address] Claus Herman MD [address] [place] [address] Discharge Disposition: Home or Self [...] in an abandoned building, in an overnight skilled nursing, or couch-surfing.) Yes 01/28/2024 Are you worried [...] Body Mass Index 23.04 06/19/2019 8:51 PM EGG TESTER documented in this encounter Discharge Summaries * Jessa Zacarias MD - 01/30/2024 9:28 AM CDT [facility] Discharge Summary Sid Garcia Age: [age] year [...] presents as a transfer of care from [facility] with concerns for labor. She started to [...] swelling, generalized unwell feeling Jessa Zacarias MD Ramp Flight Attendant PGY-3 01/30/24 9:31 AM Associated attestation - [...] Where can you learn more? Go to https://www.Fifty100.net/patiented Enter N531 in the search box to learn more about Learning About When to Call Your Doctor During (After 20 Weeks). Current as of: November 15, 2022 Content Version: 14.1 ?? [employer]. Care instructions adapted under license by your healthcare professional. If you have questions about a medical condition or this instruction, always ask your healthcare professional. [employer] disclaims any warranty or liability for your [...] bpm, mod variability, accelerations present, no decelerations [place]: 0 contractions/10 minutes Imaging: [facility] US COMPREHENSIVE (01/30/24) IMPRESSION 1. Thomas [...] concern for labor as a ROBER form [place]. Her has been notable for: - History of delivery (failure to progress, second stage) - H/o hemorrhage requiring blood transfusion, Bakri balloon - Anemia - GCT elevated, normal GTT - Factor V Leiden heterozygote - Rubella equivocal - Migraines # C/f Labor Presented with painful uterine contractions to [place]. Workup at outside hospital concerning for possible increasing cervical effacement so transfer was recommended for higher level NICU cares. At presentation to [facility], infectious workup unremarkable including negative wet prep, [...] and discussed with Dr. Claus Zacarias MD Ramp Flight Attendant PGY-3 01/30/24 8:42 AM Associated attestation - Claus Herman MD - 01/30/2024 11:30 AM CDT Physician Attestation I saw this patient with the resident and agree with the resident/fellow's findings and plan of careas documented in the note. [place]ems findings: Patient is a 23 YO at 34w6d who presented as transport from [facility] 01/28/2024 for concerns of threatened labor in the setting of late period and history of LTCS desiring TOLAC. Since admission the cervix remains unchanged and the patient is noting less contractions today. She has taken no further nifedipine. The fetus is reassuring on FHR monitoring. US today is reassuring and normal. The patient is comfortable with discharge to follow up with [facility] OB team. 25 MINUTES SPENT BY ME [...] bpm, mod variability, accelerations present, no decelerations [place]: 2 contractions/10 minutes Assessment/Plan Abrial Douglas Garcia is a 23 year old @ 34w5d by LMP c/w 8w1d US, admitted with concern for labor as a ROBER form [place]. Her has been notable for: - History of delivery (failure to progress, second stage) - H/o hemorrhage requiring blood transfusion, Bakri balloon - Anemia - GCT elevated, normal GTT - Factor V Leiden heterozygote - Rubella equivocal - Migraines # C/f Labor Presented with painful uterine contractions to [place]. Workup at outside hospital concerning for possible increasing cervical effacement so transfer was recommended for higher level NICU cares. At presentation to [facility], infectious workup unremarkable including negative wet prep, [...] and discussed with Dr. Claus Zacarias MD Ramp Flight Attendant PGY-3 01/29/24 11:02 AM Associated attestation - Claus Herman MD - 01/29/2024 11:39 AM CDT Physician Attestation I saw this patient with the resident and agree with the resident/fellow's findings and plan of careas documented in the note. Weems findings: Patient is a 23 YO at 34w5d who presented as transport from [facility] last evening for concerns of threatened labor [...] OK for OP management and delivery at [place] after 35 weeks. Likely discontinue tomorrow am. [...] on exam, still posterior. Lev Alejandro MD PARTS COUNTER SALES PERSON PGY-3 01/29/2024 7:15 AM documented in this encounter H&P Notes * Lev Alejandro MD - 01/28/2024 11:34 PM CDT Images from the original note were not included. Antepartum History and Physical January 29, 2024 Sid Garcia [id number] HPI Sid Garcia is a 23 year old at 34w4d by LMP c/w 8w1d US who presents as a transfer ofcare from [facility] with concerns for labor. She started to notice back pain and frequent abdominal tightening this morning (01/27). She thought it was [place] contractions so continued with her planned [...] Physical Activity: Sufficiently Active (08/17/2023) Received from [facility] Exercise Vital Sign Days of Exercise per Week: 5 days Minutes of Exercise per Session: 60 min Stress: No Stress Concern Present (07/14/2022) Received from [facility] [place] of Occupational Health - Occupational Stress Questionnaire Feeling of Stress : Only a little Social Connections: Socially Isolated (07/14/2022) Received from [facility] Social Connection and Isolation Panel [NHANES] Frequency of Communication with Friends and Family: More than three times a week Frequency of Social Gatherings with Friends and Family: Once a week Attends Catholic Services: Never Active Member of Clubs or [...] 150 bpm, moderate variability, accelerations present, nodecelerations [place]: 3-4 contractions in 10 minutes Impression: Category [...] Ketones Urine 100 (A) Negative mg/dL Specific [place] Urine 1.009 1.003 - 1.035 Blood Urine [...] Abnormality Status --------- ------ Adult Type and Screen[[id number]] Final result Please view results for these tests on the individual orders. Adult Type and Screen Result Value Ref Range ABO/RH(D) O POS Antibody Screen Negative Negative SPECIMEN EXPIRATION DATE [id number] Imaging Not available in system. Assessment/Plan 23 year old at 34w5d by LMP consistent with 8w1d US, transferred to [facility] for NICU cares in the setting of [...] secondary to arrest of descent in 2019. Infant weight 8 lb 1 oz. Prior operative [...] course - BMZ: s/p first dose at [place] 01/27 at 2108 - Magnesium not indicated [...] supervision of Dr. Herman. Lev Alejandro MD PARTS COUNTER SALES PERSON PGY-3 01/29/2024 4:34 AM Associated attestation - Claus Herman MD - 01/29/2024 11:33 AM CDT Physician Attestation I did not see the patient on this date. [facility] with the resident. [...] previous exam. * Provider Notification - Daly Qunitana RN - 01/30/2024 8:01 AM CDT 01/30/24 [...] PM CDT Patient arrived via ambulance from [facility] at 2255 and admitted to room 458. [...] Name Priority Date/Time Associated Diagnosis Comments [facility] US COMPREHENSIVE SINGLE Routine 01/30/2024 8:25 [...] ? Study Date: ??01/30/2024 7:08am Pat. NO: ??[id number] ?Referring ??MD: ROSA BARBA Site: ? Identification Technician: Vicky Alvarado RDMS : ??2000 ?Age: ?? 23 ----- INDICATION ----- Inpatient. labor. METHOD ----- [facility] ANTEPARTUM inpatient exam. Transabdominal ultrasound examination. View: [...] lb 15 ?oz EFW by ? Hadlock (FGI-BL-TD-FL) Head / Face / Neck Biometry: Bell Maker ?4.3 ? mm CM ? 6.3 ? [...] view. RVOT view. LVOT view. 3-vessel view. 1-cngyzn-oqkxkde view. Situs. Aortic arch view. Bicaval view. [...] GARCIA Study Date: 01/30/2024 7:08am Pat. NO: [id number] Referring MD: ROSA BARBA Site: Identification Technician: Vicky Alvarado RDMS : 2000 Age: 23 ----- INDICATION ----- Inpatient. labor. METHOD ----- [facility] ANTEPARTUM inpatient exam. Transabdominal ultrasound examination.View: Sufficient [...] EFW (lb,oz) 5 lb 15oz EFW by Hadlock(DAS-UG-UP-FL) Head / Face / Neck Biometry: Bell Maker 4.3mm CM 6.3mm Nasal bone 10.4mm ANATOMY ----- The following structures appear normal: Head / Neck Cranium. Head size. Head shape.Lateral ventricles. Choroid plexus. Midline falx. Cavum septi pellucidi.Cerebellum. Cisterna magna. Parenchyma. Thalami. Vermis. Neck. Face Lips. Profile. Nose. Maxilla.Mandible. Orbits. Lens. Heart / Thorax 4-chamber view. RVOT view. LVOT view.3-vessel view. 0-wtstfh-qzxaurh view. Situs. Aortic arch view. Bicavalview. Ductal [...] fluid volume appeared normal. Jessa Zacarias MD [facility] US ORDERABLE S * (ABNORMAL) CBC with platelets (01/29/2024 10:06 AM CDT) [facility] Signature WBC Count 9.9 4.0 - [...] LAB - BLOOD ORDERABL ES UR LABORATORY [facility] Acute Care Lab [facility], [address] [place] [phone] * Adult Type and Screen (01/29/2024 12:56 AM CDT) ABO/RH(D) O POS 01/29/2024 12:34 AM CDT UR BLOOD BANK Antibody Screen Negative Negative 01/29/2024 12:34 AM CDT UR BLOOD BANK SPECIMEN EXPIRATION DATE [id number] 01/29/2024 12:34 AM CDT UR BLOOD BANK Blood STRUCTURE OF RIGHT UPPER LIMB / Unknown Venipuncture / Unknown 01/29/2024 12:56 AM CDT 01/29/2024 1:02 AM CDT Lev Alejandro MD LAB - BLOOD BANK RICHARD T ORDER Performing Organization Address [facility]/ZIP Co de Phone Number UR BLOOD BANK [facility] Blood Components Lab [address] [place] [address], Room [place] [phone] * (ABNORMAL) UA with Microscopic reflex [...] 01/29/2024 1:05 AM CDT UR LABORATORY Specific [place] Urine 1.009 1.003 - 1.035 01/29/2024 1:05 [...] LAB - URINE ORDERABL ES UR LABORATORY [facility] Acute Care Lab [address] [facility], [address] [place] [address], [facility] * Chlamydia trachomatis/Neisseria gonorrhoeae by PCR (01/29/2024 12:38 AM CDT) Chlamydia Trachomatis Negative Negative 01/29/2024 11:09 AM CDT [facility] Comment: Negative for C. trachomatis rRNA by store merchandiser mediated amplification. A negative result by store merchandiser mediated amplification does not preclude the presence of infection because results are dependent on proper and adequate collection, absence of inhibitors and sufficient rRNA to be detected. Neisseria gonorrhoeae Negative Negative 01/29/2024 11:09 AM CDT [facility] Comment:Negative for N. gono rrhoeae rRNA by store merchandiser mediated amplification. A negative result by store merchandiser mediated amplification does not preclude the presence of C. trachomatis infection because results are dependent on proper and adequate collection, absence of inhibitors and sufficient rRNA to be detected. Swab CERVIX UTERI STRUCTURE / Unknown Non-blood Collection / Unknown 01/29/2024 12:38 AM CDT 01/29/2024 12:45 AM CDT Lev Alejandro MD LAB - MICRO GENERAL ORDERABLES [facility] Inf. Diseases Diag. Lab [address] [facility], [address] [place] [address], [facility] * (ABNORMAL) Wet prep (01/29/2024 12:38 [...] LAB - MICRO GENERAL ORDERABLES UR LABORATORY [facility] Acute Care Lab [address] [facility], [address] [place] [address], [facility] * Group B strep PCR (01/29/2024 [...] LABORATORY - 01/29/2024 8:46 PM CDT The indico Xpert GBS LB Assay, performed on the [employer]?? [employer], is a qualitative in vitro diagnostic [...] settings. The device is not intended for tegfk-mo-wnyl use. Lev Alejandro MD LAB - MICRO GENERAL ORDERABLES [facility] Inf. Diseases Diag. Lab [address] [facility], [address] [place] [address] * HIV-1 Antibody (External Result) (07/27/2023 12:27 AM CDT) HIV 1&2 Antibody (External) Negative Nonreactive [facility] 07/27/2023 12:2 7 AM CDT Patient Reported LAB - HIM EXTERNAL R ESULT [facility] [address] [place], [place] [phone] [place] [address] * Hepatitis B Surface Antigen (External Result) (07/27/2023 12:27 AM CDT) Hepatitis B Surface Antigen (External) Negative [facility] 07/27/2023 12:2 7 AM CDT Patient Reported LAB - HIM EXTERNAL R ESULT [facility] [address] [place] [address], [facility] [phone] * Rubella Antibody IgG (External Result) (07/27/2023 12:27 AM CDT) Rubella Antibody IgG (External) Immune Nonreactive [facility] 07/27/2023 12:2 7 AM CDT Patient Reported LAB - HIM EXTERNAL R ESULT Performing Organization Address City/[facility]/ZIP Co de Phone Number [facility] [address] [place] [address], [facility] [phone] documented in this encounter Visit Diagnoses Diagnosis [...] not exceed 2 doses in 24 hours. 174 ($Given - Provider: Ledy Allred RN) Linked [...] Antepartum documented in this encounter Care Teams Mix Maker Relationship Specialty Start Date End Date No Ref-Primary, Physician PCP - General 06/19/19 01/28/24 Shalonda Barrett MD [facility] [address] [place] [address] PCP - General Family Medicine 01/29/24 documented as of this encounter
--- OUTSIDE RECORDS SUMMARY | 2024-02-18 18:12 | XMS_ITS | Referral Summary ---
Author Organization [facility] Address [address] [place] [address] Care Team Providers Care Hard Rock Drill Operator Name Role Phone Elsewhere, Pcp Primary Care Provider Unavailabl e Source Comments Patient records contain information from all sites at [facility]. For routine questions regarding patient records, call [phone] during business hours, M-F 8:00 AM - 5:00 PM Central Time. Record requests for emergency care only can be directed to [phone] at any time.[facility] Encounters Date Type Department Care Team Description 01/11/2024 5:07 PM CDT - 01/11/2024 6:48 PM CDT Emergency [facility] [address] [place] [phone] Alvino Christianson P.A.-C., P.A. Pharyngitis Acute (Primary Dx) Discharge Disposition: Home or Self Care 12/06/2023 6:50 PM CDT - 12/06/2023 7:30 PM CDT Emergency [facility] [address] [place] [phone] Benny Cuevas M.D. Migraine Headache (Primary Dx); 27 Weeks Gestation (HCC) Discharge Disposition: Home or Self Care 12/06/2023 6:30 PM CDT Office Visit Urgent Care, [facility], in [place], [place] [address] [place] [phone] Ana Laura Block P.A.-C., P.A. Procedure And Treatment Not Carried Out Due To Patient Leaving Prior To Being Seen By Health Care Provider (Primary Dx) Discharge Disposition: Home or Self Care from Last 3 Months Allergies Active Allergy Reactions Criticality Noted Date Comments Ondansetron GI intolerance 06/08/2022 ODT and liquid forms only, cause n/v. Tolerates IV and oral pill formulations. Medications quelhku-Ca-fusd-FA (VINATE ONE) 60 mg iron-1 mg per tablet Take 1 tablet by mouth daily. Active ferrous sulfate (IRON ORAL) Take by mouth. Active ondansetron ODT (ZOFRAN-ODT) 4 mg disintegrating tablet DISSOLVE ONE TABLET BY MOUTH EVERY 8 HOURS NEEDED FOR NAUSEA AND VOMITING 4 Active SUMAtriptan (IMITREX) 50 mg tablet TAKE ONE TABLET BY MOUTH ONCE DAILY AT ONSET OF HEADACHE, MAY REPEAT WITH 1 TABLET AFTER 2 HOURS NEEDED -MAX OF 4 TABLETS PER 24 HOURS 4 Active docosahexaenoic acid 200 mg capsule Take by mouth. 4 Active promethazine (Phenergan) 25 mg tablet Take 1 tablet (25 mg total) by mouth every 6 (six) hours as needed for nausea or vomiting (Headache). 15 tablet 4 Active Active Problems Problem Noted Date Diagnosed [...] e alcohol) [facility] Utilities Answer Date Recorded In the past 12 months has e [employer], [employer], or water [employer] threatened to shut off services in your [...] any clubs o r organizations such as religious groups, unions, fraternal or athletic groups, or [...] medical care, and heating? Somewhat hard 07/14/2022 [facility] - Occupational [...] your living situation today? I have a [facility] place to live 08/17/2023 Education Answer Date Recorded What is the highest level of school you have completed or the highest degree you have received? 12th grade 07/14/2022 Estimated Date of Delivery Comme nts Yes 03/06/2024 Sex and Gender Information Value Date Recorded Sex Assigned at Female 08/17/2023 8:03 PM CDT Legal Sex Female 2:26 PM CDT Gender Identity Female 08/17/2023 8:03 [...] 01/11/2024 3:22 PM CDT Alvino Christianson P.A.-C., P.ADedra LAB M ICROBIOLOGY - GENERAL ORDERABLES Final Result [facility] [address] [place] [address], [place] [facility] [address] [place] [address] from Last 3 Months Insurance [employer] Care Teams Hard Rock Drill Operator Relationship Specialty Start Date End Date Elsewhere, Pcp PCP - General 08/30/21
--- OUTSIDE RECORDS SUMMARY | 2024-02-18 18:12 | XMS_ITS | Clinical Summary ---
Author Organization [facility] Address [address] [place] [address] Care Team Providers Care Product Assurance Engineer Name Role Phone Elsewhere, Pcp Primary Care Provider Unavailabl e Source Comments Patient records contain information from all sites at [facility]. For routine questions regarding patient records, call [phone] during business hours, M-F 8:00 AM - 5:00 PM Central Time. Record requests for emergency care only can be directed to [phone] at any time.[facility] Allergies Active Allergy Reactions Criticality Noted Date Comments Ondansetron GI intolerance 06/08/2022 ODT and liquid forms only, cause n/v. Tolerates IV and oral pill formulations. Medications gjebjmy-Qe-caju-FA (VINATE ONE) 60 mg iron-1 mg per [...] CDT - 01/11/2024 6:48 PM CDT Emergency [facility] [address] [place] [address] Alvino Christianson, PTerryC., P.A. Pharyngitis Acute (Primary Dx) Discharge Disposition: Home or Self Care 12/06/2023 6:50 PM CDT - 12/06/2023 7:30 PM CDT Emergency [facility] [address] [place] [phone] Benny Cuevas M.D. Migraine Headache (Primary Dx); 27 Weeks Gestation (HCC) Discharge Disposition: Home or Self Care 12/06/2023 6:30 PM CDT Office Visit Urgent Care, [facility], in [place], [place] [address] [place] [phone] Ana Laura Block P.A.-C., P.A. Procedure And [...] drink = 0.6 oz pur e alcohol) [facility] Utilities Answer Date Recorded In the past 12 months has e [employer], [employer], or water [employer] threatened to shut off services in your [...] How often do you attend chur or jainism services? Never 07/14/2022 Do you [...] living situation today? I have a [facility] place to live 08/17/2023 Education Answer [...] Depression Screening (Annual PHQ-2) 05/09/2023 COVID-19 Vaccine ( season) 2024 RSV vaccine - (32-36 weeks) [...] 7 PM CDT 01/11/2024 3:22 PM CDT us Alvino Christianson P.A.-C., P.A. LAB M ICROBIOLOGY - GENERAL ORDERABLES Final Result [facility] [address] [place] [address], [place] NPRG [facility] [address] [place] [address] from Last 3 Months Insurance [employer] Care Teams Product Assurance Engineer Relationship Specialty Start Date End Date Elsewhere, Pcp PCP - General 08/30/21
--- OUTSIDE RECORDS SUMMARY | 2024-02-18 18:12 | XMS_ITS | Encounter Summary ---
Author Organization [facility] Address [facility] [place] [address] Care Team Providers Care Car Salesman Name Role Phone No Ref-Primary, Physician Primary Care Provider Shalonda Barrett MD Primary Care Provider + Reason for Visit * Auth/Cert (Routine) Specialty Diagnoses / Procedures Referred By Berkley lubin Referred To Contact sap analyst Diagnoses Maternity*TONYA: * Labor uterine contractions Ur [address] [address] [place] [phone] Referral ID Status Reason Start Date Expiration Date Visits Re quested Visits Authorized [id number] 1 1 Encounter Details Date Type Department Care Team (Late st Contact Info) Description 01/28/2024 Hospital Encounter [facility] [address] [place] [address] Claus Herman MD [address] [facility] [address] [place] [address] Social History Tobacco Use Types [...] in an abandoned building, in an overnight longterm, or couch-surfing.) Yes 01/28/2024 Are you worried [...] on filedocumented in this encounter Care Teams Car Salesman Relationship Specialty Start Date End Date No Ref-Primary, Physician PCP - General 06/19/19 01/28/24 Shalonda Barrett MD [address] [address] PCP - General Family Medicine 01/29/24 documented as of this encounter
--- OUTSIDE RECORDS SUMMARY | 2024-02-18 18:12 | XMS_ITS ---
Author Organization [facility] Address [address] [place] [address] Care Team Providers Care Fertilizer Supervisor Name Role Phone Shalonda Barrett MD Primary Care Provider + Transitional Care Management Status:Closed (Closed) Start date:01/31/2024 Enrollment date:01/31/2024 End date:02/14/2024 Close reason:Goals met Continued Care and Services Coordination
--- OUTSIDE RECORDS SUMMARY | 2024-02-18 18:12 | XMS_ITS | Clinical Summary ---
Author Organization [facility] Address [address] [place] [address]. [address] Care Team Providers Care Ways Operator Name Role Phone Shalonda Barrett MD [...] Date Type Department Care Team Description 01/29/2024 Travel 01/28/2024 10:53 PM CDT - 01/30/2024 9:38 AM CDT Hospital Encounter [facility] [address] [facility] [place] [place] [phone] Claus Herman MD Discharge Disposition: Home or Self Care 01/28/2024 Hospital Encounter [facility] Birthplace [address] [facility] [place] [address] Claus Herman MD from Last 3 Months [...] in an abandoned building, in an overnight snf, or couch-surfing.) Yes 01/28/2024 Are you worried [...] CDT Oxygen Saturation 96% 06/19/2019 11:22 PM VEST BACKER Inhaled Oxygen Concentration - - Weight 60.9 kg (134 lb 3.2 oz) 01/29/2024 7:35 A M CDT Height 162.6 cm (5' 4) 06/19/2019 8:51 PM VEST BACKER Body Mass Index 23.04 06/19/2019 8:51 PM VEST BACKER Plan of Treatment Health Maintenance Due Date [...] Procedure Name Priority Date/Time Associated Diagnosis Comments [facility] US COMPREHENSIVE SINGLE Routine 01/30/2024 8:25 AM CDT CBC WITH PLATELETS Routine 01/29/2024 10 :06 AM CDT ABO/RH TYPE AND SCREEN Timed 12:56 AM CDT TYPE AND SCREEN, ADULT Timed 4 12:56 AM CDT ROUTINE UA WITH MICROSCOPIC [...] AM CDT ?Comprehensive ----- Pat. Name: SID GARCIA ? Study Date: ??01/30/2024 7:08am Pat. NO: ??[id number] ?Referring ??MD: ROSA BARBA Site: ? Slp: Vicky Alvarado RDMS : ??2000 ?Age: ?? 23 ----- INDICATION ----- Inpatient. labor. METHOD ----- [facility] inpatient exam. Transabdominal ultrasound examination. [...] lb 15 ?oz EFW by ? Hadlock ([id number]) Head / Face / Neck Biometry: Celery Packer ?4.3 ? mm CM ? 6.3 ? [...] view. RVOT view. LVOT view. 3-vessel view. 6-vaaxlc-xfcowas view. Situs. Aortic arch view. Bicaval view. [...] GARCIA Study Date: 01/30/2024 7:08am Pat. NO: [id number] Referring MD: ROSA BARBA Site: Slp: Vicky Alvarado RDMS : 2000 Age: 23 ----- INDICATION ----- Inpatient. labor. METHOD ----- [facility] inpatient exam. Transabdominal ultrasound examination.View: [...] EFW (lb,oz) 5 lb 15oz EFW by Hadlock([id number]) Head / Face / Neck Biometry: Celery Packer 4.3mm CM 6.3mm Nasal bone 10.4mm ANATOMY ----- The following structures appear normal: Head / Neck Cranium. Head size. Head shape.Lateral ventricles. Choroid plexus. Midline falx. Cavum septi pellucidi.Cerebellum. Cisterna magna. Parenchyma. Thalami. Vermis. Neck. Face Lips. Profile. Nose. Maxilla.Mandible. Orbits. Lens. Heart / Thorax 4-chamber view. RVOT view. LVOT view.3-vessel view. 6-tkyxcq-wuiyqox view. Situs. Aortic arch view. Bicavalview. Ductal [...] fluid volume appeared normal. Jessa Zacarias MD [facility] US ORDERABLE S * (ABNORMAL) CBC with platelets (01/29/2024 10:06 AM CDT) [facility] WBC Count 9.9 4.0 - 11.0 10e3/uL [...] LAB - BLOOD ORDERABL ES UR LABORATORY [facility] Acute Care Lab [address] [place] [address], Room [address] * Adult Type and Screen (01/29/2024 12:56 AM CDT) ABO/RH(D) O POS 01/29/2024 12:34 AM CDT UR BLOOD BANK Antibody Screen Negative Negative 01/29/2024 12:34 AM CDT UR BLOOD BANK SPECIMEN EXPIRATION DATE [id number] 01/29/2024 12:34 AM CDT UR BLOOD BANK Blood STRUCTURE OF RIGHT UPPER LIMB / Unknown Venipuncture / Unknown 01/29/2024 12:56 AM CDT 01/29/2024 1:02 AM CDT Lev Alejandro MD LAB - BLOOD BANK RICHARD T ORDER Performing Organization Address City/[facility]/ZIP Co de Phone Number UR BLOOD BANK [facility] Blood Components Lab [address] [place] [address], Room [address] * (ABNORMAL) UA with Microscopic reflex to [...] 01/29/2024 1:05 AM CDT UR LABORATORY Specific [place] Urine 1.009 1.003 - 1.035 01/29/2024 1:05 [...] LAB - URINE ORDERABL ES UR LABORATORY [facility] Acute Care Lab [address] [facility], [address] [phone] * Chlamydia trachomatis/Neisseria gonorrhoeae by PCR (01/29/2024 12:38 AM CDT) Pathologist [facility] Chlamydia Trachomatis Negative Negative 01/29/2024 11:09 AM CDT [facility] Comment: Negative for C. trachomatis rRNA by dormitory supervisor mediated amplification. A negative result by dormitory supervisor mediated amplification does not preclude the presence of infection because results are dependent on proper and adequate collection, absence of inhibitors and sufficient rRNA to be detected. Neisseria gonorrhoeae Negative Negative 01/29/2024 11:09 AM CDT [facility] Comment:Negative for N. gono rrhoeae rRNA by dormitory supervisor mediated amplification. A negative result by dormitory supervisor mediated amplification does not preclude the presence of C. trachomatis infection because results are dependent on proper and adequate collection, absence of inhibitors and sufficient rRNA to be detected. Swab CERVIX UTERI STRUCTURE / Unknown Non-blood Collection / Unknown 01/29/2024 12:38 AM CDT 01/29/2024 12:45 AM CDT Lev Alejandro MD LAB - MICRO GENERAL ORDERABLES [facility] Inf. Diseases Diag. Lab [address] [facility], [address] [phone] * (ABNORMAL) Wet prep [...] LAB - MICRO GENERAL ORDERABLES UR LABORATORY [facility] Acute Care Lab [address] [facility], [address] [phone] * Group B strep [...] Xpert GBS LB Assay, performed on the [employer]?? Instrument Systems, is a qualitative in vitro [...] settings. The device is not intended for cepsn-cp-mrfp use. Lev Alejandro MD LAB - MICRO GENERAL ORDERABLES Performing Organization Address City/[facility]/ZIP Co de Phone Number [facility] Inf. Diseases Diag. Lab [address] [facility], [address] [phone] * HIV-1 Antibody (External Result) (07/27/2023 12:27 AM CDT) HIV 1&2 Antibody (External) Negative Nonreactive [facility] 07/27/2023 12:2 7 AM CDT Patient Reported LAB - HIM EXTERNAL R ESULT Performing Organization Address City/[facility]/ZIP Co de Phone Number [facility] [address] [place], [place] [address] [phone] from Last 3 Months or Most Recently Relevant to Health Maintenance Advance Directives For more information, please contact: [phone] * Full Code (Latest Code Status on File) Date Activated Date Inactivated Comments 01/29/2024 12:33 AM 01/30/2024 11:44 AM All basic and advanced life-sustaining interventions are performed as appropriate Question Answer Comments Code status determined by: Discussion with patie nt/ legal decision maker Care Teams Ways Operator Relationship Specialty Start Date End Date Shalonda Barrett MD [facility] [address] [place] [address] PCP - General Family Medicine 01/29/24
--- OUTSIDE RECORDS SUMMARY | 2024-02-18 18:12 | XMS_ITS | Referral Summary ---
Author Organization [facility] Address [address] [place] [address]. [place] [address] Care Team Providers Care Handstitching Machine Armhole Feller Name Role Phone Shalonda Barrett MD Primary Care Provider + Encounters Date Type Department Care Team Description 01/28/2024 10:53 PM CDT - 01/30/2024 9:38 AM CDT Hospital Encounter [facility] [place] [facility] Birthplace [address] [place] [phone] Claus Herman MD Discharge Disposition: Home or Self Care 01/29/2024 Travel 01/28/2024 Hospital Encounter [facility] [place] [facility] Birthplace [address] [place] [phone] Claus Herman MD from Last 3 Months [...] CDT Oxygen Saturation 96% 06/19/2019 11:22 PM LIFE ENRICHMENT MANAGER Inhaled Oxygen Concentration - - Weight 60.9 kg (134 lb 3.2 oz) 01/29/2024 7:35 A M CDT Height 162.6 cm (5' 4) 06/19/2019 8:51 PM LIFE ENRICHMENT MANAGER Body Mass Index 23.04 06/19/2019 8:51 PM LIFE ENRICHMENT MANAGER Plan of Treatment Not on file Procedures Procedure Name Priority Date/Time Associated Diagnosis Comments [facility] US COMPREHENSIVE SINGLE Routine 01/30/2024 8:25 [...] ? Study Date: ??01/30/2024 7:08am Pat. NO: ??[id number] ?Referring ??MD: ROSA BARBA Site: ? Motor Grader Operator: Vicky Alvarado RDMS : ??2000 ?Age: ?? 23 ----- INDICATION ----- Inpatient. labor. METHOD ----- [facility] inpatient exam. Transabdominal ultrasound examination. [...] BPD ? 90.1 ?mm ? 36w 3d ?Ney HONG ? 110.5 ?mm ? 33w 2d [...] ?5 lb 15 ?oz [facility]FW [facility] ? [facility][id number]) Head / Face / Neck Biometry: Manager Emergency ?4.3 ? mm CM ? 6.3 ? [...] view. RVOT view. LVOT view. 3-vessel view. 6-pcvoya-asypqsi view. Situs. Aortic arch view. Bicaval view. [...] [place] Study Date: 01/30/2024 7:08am Pat. NO: [id number] Referring MD: ROSA BARBA Site: Motor Grader Operator: Vicky Alvarado RDMS : 2000 Age: 23 ----- INDICATION ----- Inpatient. labor. METHOD ----- [facility] inpatient exam. Transabdominal ultrasound examination.View: [...] EFW (lb,oz) 5 lb 15oz EFW by Hadlock([id number]) Head / Face / Neck Biometry: Manager Emergency 4.3mm CM 6.3mm Nasal bone 10.4mm ANATOMY ----- The following structures appear normal: Head / Neck Cranium. Head size. Head shape.Lateral ventricles. Choroid plexus. Midline falx. Cavum septi pellucidi.Cerebellum. Cisterna magna. Parenchyma. Thalami. Vermis. Neck. Face Lips. Profile. Nose. Maxilla.Mandible. Orbits. Lens. Heart / Thorax 4-chamber view. RVOT view. LVOT view.3-vessel view. 9-trfnbh-ieewbnp view. Situs. Aortic arch view. Bicavalview. Ductal [...] fluid volume appeared normal. Jessa Zacarias MD [facility] US ORDERABLE S * (ABNORMAL) CBC with platelets (01/29/2024 10:06 AM CDT) [facility] Signature WBC Count 9.9 4.0 [...] LAB - BLOOD ORDERABL ES UR LABORATORY [facility] Acute Care Lab [address] [place] [address], [address] * Adult Type and Screen (01/29/2024 12:56 AM CDT) ABO/RH(D) O POS 01/29/2024 12:34 AM CDT UR BLOOD BANK Antibody Screen Negative Negative 01/29/2024 12:34 AM CDT UR BLOOD BANK SPECIMEN EXPIRATION DATE [id number] 01/29/2024 12:34 AM CDT UR BLOOD BANK Blood STRUCTURE OF RIGHT UPPER LIMB / Unknown Venipuncture / Unknown 01/29/2024 12:56 AM CDT 01/29/2024 1:02 AM CDT Lev Alejandro MD LAB - BLOOD BANK RICHARD T ORDER UR BLOOD BANK [facility] Blood Components Lab [address] [place] [address], [address] * (ABNORMAL) UA with Microscopic reflex to Culture (01/29/2024 12:48 AM CDT) Color Urine Yellow Colorless, Straw, Light Yellow, Yellow 01/29/2024 1:05 AM CDT UR LABORATORY Appearance Urine Clear Clear 01/29/20 1:05 AM CDT UR LABORATORY Glucose Urine Negative Negative mg/dL 01/29/2024 1:05 AM CDT UR LABORATORY Bilirubin Urine Negative Negative 1:05 AM CDT UR LABORATORY Ketones Urine 100(A) Negative mg/dL 01/29/2024 1:05 AM CDT UR LABORATORY Specific [place] Urine 1.009 1.003 - 1.035 01/29/2024 1:05 [...] LAB - URINE ORDERABL ES UR LABORATORY [facility] Acute Care Lab [address] [facility] [address] [place] [phone] * Chlamydia trachomatis/Neisseria gonorrhoeae by PCR (01/29/2024 12:38 AM CDT) Pathologist [facility] Chlamydia Trachomatis Negative Negative 01/29/2024 11:09 AM CDT [facility] Comment: Negative for C. trachomatis rRNA by printing supervisor mediated amplification. A negative result by printing supervisor mediated amplification does not preclude the presence of infection because results are dependent on proper and adequate collection, absence of inhibitors and sufficient rRNA to be detected. Neisseria gonorrhoeae Negative Negative 01/29/2024 11:09 AM CDT [facility] Comment:Negative for N. gono rrhoeae rRNA by printing supervisor mediated amplification. A negative result by printing supervisor mediated amplification does not preclude the presence of C. trachomatis infection because results are dependent on proper and adequate collection, absence of inhibitors and sufficient rRNA to be detected. Swab CERVIX UTERI STRUCTURE / Unknown Non-blood Collection / Unknown 01/29/2024 12:38 AM CDT 01/29/2024 12:45 AM CDT Lev Alejandro MD LAB - MICRO GENERAL ORDERABLES [facility] Inf. Diseases Diag. Lab [address] [facility], [address] [place] [phone] * (ABNORMAL) Wet prep (01/29/2024 12:38 AM CDT) Pathologist [facility] Trichomonas Absent Absent JET 01/29/2024 1:01 AM [...] LAB - MICRO GENERAL ORDERABLES UR LABORATORY [facility] Acute Care Lab [address] [facility], [address] [place] [phone], [facility] * Group B strep PCR [...] LABORATORY - 01/29/2024 8:46 PM CDT The CepAdvisityid Xpert GBS LB Assay, performed on the [employer]?? [employer] Systems, is a qualitative in vitro diagnostic [...] settings. The device is not intended for dpjpr-mw-gabf use. Lev Alejandro MD LAB - MICRO GENERAL ORDERABLES [facility] Inf. Diseases Diag. Lab [address] [facility], [address] [place] [address], [facility] * HIV-1 Antibody (External Result) (07/27/2023 12:27 AM CDT) HIV 1&2 Antibody (External) Negative Nonreactive [facility] 07/27/2023 12:2 7 AM CDT Patient Reported LAB - HIM EXTERNAL R ESULT [address] [address], [facility] [phone] from Last 3 Months or Most Recently Relevant to Health Maintenance Advance Directives For more information, please contact: [phone] * Full Code (Latest Code Status on File) Date Activated Date Inactivated Comments 01/29/2024 12:33 AM 01/30/2024 11:44 AM All basic and advanced life-sustaining interventions are performed as appropriate Question Answer Comments Code status determined by: Discussion with camilo nt/ legal decision maker Care Teams Handstitching Machine Armhole Feller Relationship Specialty Start Date End Date Shaolnda Barrett MD [facility] [address] [place] [address] PCP - General Family Medicine 01/29/24
--- OUTSIDE RECORDS SUMMARY | 2024-02-18 18:13 | XMS_ITS | Encounter Summary ---
Author Organization [facility] Address [address] [place] [address] Care Team Providers Care Electrician Elevator Maintenance Name Role Phone Elsewhere, Pcp Primary Care [...] CDT - 12/06/2023 7:30 PM CDT Emergency [facility] [address] [place] [phone] Benny Cuevas M.D. [address] [place] [address] Migraine Headache (Primary Dx); 27 Weeks Gestation (HCC) Discharge Disposition: Home or Self Care Social History Tobacco Use Types Packs/Day Years Used Date Smoking Tobacco: Never Passive Smoke Exposure: Never Smokeless Tobacco: Never Alcohol Use Standard Drinks/Week Comments No 0 (1 standard drink = 0.6 oz pur e alcohol) [facility] Utilities Answer Date Recorded In the past [...] How often do you attend chur or latter-day services? Never 07/14/2022 Do you belong to [...] heating? Somewhat hard 07/14/2022 [facility] [place] of Occupat ional Health - Occupational Stress [...] your living situation today? I have a [facility] place to live 08/17/2023 Education Answer [...] you are . Follow up with your sorter pricer if your headache isn't improving by tomorrow. * Attachments The following attachments cannot be sent through Care Everywhere. * Migraine Headache (Kazakh) documented in this encounter Medications at Time of Discharge docosahexaenoic acid 200 mg capsule Take by mouth. 07/27/2023 ferrous sulfate (IRON ORAL) Take by mouth. ondansetron ODT (ZOFRAN-ODT) 4 mg disintegrating tablet DISSOLVE ONE TABLET BY MOUTH EVERY 8 HOURS NEEDED FOR NAUSEA AND VOMITING 07/27/2023 kzfypyz-Gu-wxvx-FA (VINATE ONE) 60 mg iron-1 mg per [...] 12/06/23 1854 36.9 ??C Pulse Rate 12/06/23 1854 76 Heart Rate -- Resp Rate 12/06/23 1854 16 Blood Pressure 12/06/23 1854 122/74 SpO2 12/06/23 185 98 % Pain Score 12/06/23 1857 8 General: Awake, alert, oriented x3. No [...] 1. Migraine Headache 2. 27 Weeks Gestation ([facility]) ED Disposition Discharge ED Prescriptions Medication Sig Dispense Start Date End Date Auth. Provider promethazine (Phenergan) 25 mg tablet Take 1 tablet (25 mg total) by mouth every 6 (six) hours as needed for nausea or vomiting (Headache). 15 tablet 12/06/2023 -- Benny Cuevas M.D. Notes are completed with voice recognition dictation software. Errors are generally corrected in real-time. Please message me via [employer] In Basket if you note any areas [...] mg (Decadron) 10 mg, intramuscular, Once, On Tue12/06/23 at 1902, For 1 dose Given 12/06/2023 7:05 PM CDT 10 mg Right Deltoid promethazine injection 25 mg (Phenergan) 25 mg, intramuscular, Once, On Tue12/06/23 at 1902, For 1 dose Given 12/06/2023 7:05 PM CDT 25 mg Right Deltoid documented in this encounter Active and Recently Administered Medications Times are shown in CDT. Scheduled Medication Order 12/04/2023 12/05/2023 12/06/2023 acetaminophen tablet 1,000 mg (TylenoL) (COMPLETED) 1,000 mg, oral, Once, On Tue12/06/23 at 1902, For 1 dose 1904 (Given - Provid er: Evette Benavidez R.N.) dexAMETHasone injection 10 mg (Decadron) (COMPLETED) 10 mg, intramuscular, Once, On Tue12/06/23 at 1902, For 1 dose 1904 (Given - Provid er: Evette Benavidez R.N.) promethazine injection 25 mg (Phenergan) (COMPLETED) 25 mg, intramuscular, Once, On Tue12/06/23 at 1902, For 1 dose 1904 (Given - Provid er: Evette Benavidez R.N.) documented in this encounter Care Teams Electrician Elevator Maintenance Relationship Specialty Start Date End Date Elsewhere, Pcp PCP - General 08/30/21 documented as of this encounter
--- OUTSIDE RECORDS SUMMARY | 2024-02-18 18:13 | XMS_ITS | Encounter Summary ---
Author Organization [facility] Address [address] [place] [address] Care Team Providers Care Sap Business Objects Consultant Name Role Phone Elsewhere, Pcp Primary Care Provider Unavailabl e Reason for Visit * Reason Comments Sore Throat Pt presents w/throat pain onset last night, denies cough and fever. Encounter Details Date Type Department Care Team (Late st Contact Info) Description 01/11/2024 5:07 PM CDT - 01/11/2024 6:48 PM CDT Emergency [facility] [address] [place] [address] Alvino Christianson, PDedraA.-Amena., P.A. [address] [phone] Pharyngitis Acute (Primary Dx) Discharge Disposition: Home or Self Care Social History Tobacco Use Types Packs/Day Years Used Date Smoking Tobacco: Never Passive Smoke Exposure: Never Smokeless Tobacco: Never Alcohol Use Standard Drinks/Week Comments No 0 (1 standard drink = 0.6 oz pur e alcohol) [facility] Utilities Answer Date Recorded In the [...] any clubs o r organizations such as congregational groups, unions, fraternal or athletic groups, or [...] medical care, and heating? Somewhat hard 07/14/2022 [facility] [place] of Occupat ional Health - Occupational Stress [...] HOURS NEEDED FOR NAUSEA AND VOMITING 07/27/2023 ssjhrid-Dm-beso-FA (VINATE ONE) 60 mg iron-1 mg per [...] of this encounter Progress Notes * Alvino Christianson PEfrain.-Amena., P.A. - 01/11/2024 6:16 PM CDT SUBJECTIVE [...] M ICROBIOLOGY - GENERAL ORDERABLES Final Result [facility] [address] [place] [address], [facility] [address] [place] [address] documented in this encounter Visit Diagnoses Diagnosis Pharyngitis Acute- Primary documented in this encounter Care Teams Sap Business Objects Consultant Relationship Specialty Start Date End Date Elsewhere, Pcp PCP - General 08/30/21 documented as of this encounter
--- OUTSIDE RECORDS SUMMARY | 2024-02-18 18:13 | XMS_ITS | Encounter Summary ---
Author Organization [facility] Address [address] [place] [address] Care Team Providers Care Livestock Buyer Name Role Phone Elsewhere, Pcp Primary Care Provider Unavailabl e Encounter Details Date Type Department Care Team (Late st Contact Info) Description 12/06/2023 6:30 PM CDT Office Visit Urgent Care, [facility], in [place], [place] [address] [place] [address] Ana Laura Block, PDuc-Amena., P.A. [address] [place] [phone] Procedure And Treatment Not Carried Out Due To Patient Leaving Prior To Being Seen By Health Care Provider (Primary Dx) Discharge Disposition: Home or Self Care Social History Tobacco Use Types Packs/Day Years Used Date Smoking Tobacco: Never Passive Smoke Exposure: Never Smokeless Tobacco: Never Alcohol Use Standard Drinks/Week Comments No 0 (1 standard drink = 0.6 oz pur e alcohol) [facility] Utilities Answer Date Recorded In the past 12 months has Smeet, gas, oil, or water [employer] threatened to shut off services in your [...] medical care, and heating? Somewhat hard 07/14/2022 [facility] [place] of Occupat ional Health - Occupational Stress [...] your living situation today? I have a [facility] place to live 08/17/2023 Education Answer Date [...] Primary documented in this encounter Care Teams Livestock Buyer Relationship Specialty Start Date End Date Elsewhere, Pcp PCP - General 08/30/21 documented as of this encounter
--- OUTSIDE RECORDS SUMMARY | 2024-02-18 18:13 | XMS_ITS ---
Author Organization [facility] Address [address] [place] [address] Care Team Providers Care Kindergarten Prep Teacher Name Role Phone Unavailable Unavailable Unavailable Surgery Details Not on file Complications Check Surgery Details section. Procedure Estimated Blood Loss Check Surgery Details section. Procedure Findings Check Surgery Details section. Procedure Specimens Taken Check Surgery Details section.
--- OUTSIDE RECORDS SUMMARY | 2024-02-18 18:13 | XMS_ITS | Clinical Summary ---
Author Organization [facility] Address [place], [place] [address] Care Team Providers Care Daycare Manager Name Role Phone [facility], [facility] Primary Care Pr ovider Allergies No [...] Relation Name Comments Bipolar disorder Brother 1 [place] Thyroid Disease Brother 1 [place] Good Health Brother 2 Desai Good Health [...] disease Relation Name Status Comments Brother 1 [place] Alive Brother 2 Desai Alive Father Maternal [...] Comments Blood Pressure 118/72 06/30/2022 2:37 PM TAXONOMY TEACHER Pulse 83 06/30/2022 2:37 PM TAXONOMY TEACHER Temperature 36.9 ??C (98.4 ??F) 12/25/2021 4:00 PM CD T Respiratory Rate 16 12/25/2021 4:00 PM CDT Oxygen Saturation 98% 12/25/2021 4:00 PM CDT Inhaled Oxygen Concentration - - Weight 52.2 kg (115 lb) 06/30/2022 2:37 PM TAXONOMY TEACHER Height 162.6 cm (5' 4) 12/25/2021 4:00 [...] Procedure Name Priority Date/Time Associated Diagnosis Comments CELERY STRIPPER THIN PREP PAP SCREEN IMAGED Routine 03/24/2023 12:00 PM TAXONOMY TEACHER from Last 3 Months or Most Recently Relevant to Health Maintenance Results * CELERY STRIPPER THIN PREP PAP SCREEN IMAGED (03/24/2023 12:00 PM TAXONOMY TEACHER) Case Report Gynecologic Cytology Report ? Case: [id number] ? Authorizing Provider: ??Harmony Colon ?Collected: ? 03/24/2023 1200 ? MD Lennie ? Ordering Location: ? [facility] ?Received: ?03/28/2023 1655 ? First Screen: ?Nino Dimas ? Specimen: ?CELERY STRIPPER ThinPrep Vial Screening, Cervical ? 04/07/2023 1:26 PM TAXONOMY TEACHER [facility] INTERPRETATION/ RESULT NEGATIVE FOR INTRAEPITHELIAL LESION OR MALIGNANCY (NIL) (none) 04/07/2023 1:26 PM TAXONOMY TEACHER [facility] IMEN ADEQUACY Satisfactory for evaluation Endocervical component present 04/07/2023 1:26 PM TAXONOMY TEACHER [facility] HPV REQUEST HPV not requested 2022 1:26 PM TAXONOMY TEACHER [facility] Date of LMP 03/05/2023 04/07/2023 1:26 PM TAXONOMY TEACHER [facility] Abnormal Pap or [place] Bx in last 5 years No 04/07/2023 1:26 PM TAXONOMY TEACHER [facility] Menstrual Status Irregular Periods 04/07/2023 1:26 PM TAXONOMY TEACHER [facility] [place] Bx Done Today No 04/07/2023 1:26 PM TAXONOMY TEACHER [facility] Additional Information 04/07/2023 1:26 PM TAXONOMY TEACHER [facility] Comment: Interpreted at [facility] - [address] [place] [id number] Automated Review Successful 04/07/2023 1:26 PM TAXONOMY TEACHER [facility] Comment:Specimen processed s uccessfully by automated skip miner device, ThinPrep Imaging System, [employer] Note The pap test is a screening technique, not a diagnostic procedure. It is used primarily to screen for squamous cancers and precursor lesions. Published studies have shown that it is subject to both false negative and false positive results. The pap test should not be used as the sole means to diagnose or exclude pre-malignant and malignant lesions. 04/07/2023 1:26 PM TAXONOMY TEACHER [facility] Other (Cervical) 03/24/2023 12:00 PM TAXONOMY TEACHER 03/28/2023 4:55 PM TAXONOMY TEACHER Harmony Colon MD PATHOLOGY/ CYTOLOGY [facility] [employer] [facility] [address] [place] [address], [place] from Last 3 Months or Most Recently Relevant to Health Maintenance Care Teams Daycare Manager Relationship Specialty Start Date End Date Clinic, [facility] [address] [place] [address] PCP - General 12/19/23
--- NOTE | 2024-02-18 21:35 | P.LDBA_ITS ---
Subjective History of Present Illness Date Seen: 02/18/24 Narrative: Patient is being admitted to Labor and Delivery for observation for contractions without cervical change in the setting of previous delivery. She is a 23 year old at 37 4/7 weeks' gestation by LMP c/w 1st trimester US, TONYA 03/06/24. Her full history and physical was dictated by Dr. Guardado on 02/15. Please see this for details. Specific Issues/Plans G 3 P 1 #Admitted to [facility] at 34 4/7 weeks due to labor sx. 01/28/24-01/30/24 s/p betamethasone on 01/29/24 - GBS NEGATIVE from that admission 01/29 - Repeat GBS at 38 weeks if still # Personal history of Factor V Leiden: Heterozygous. Denies history of VTE. - anticoagulation X 6 weeks in case of or other risk factors # History of : Due to arrest of decent 02/01/20. Infant 8 lbs 1 oz. Desires TOLAC. Consent signed. -Likelihood of success = 72% -34-week growth ultrasound: EFW 46% as below -Considering at 39 week IOL # History of immediate hemorrhage requiring Bakri balloon and tra nsfusion #Abnormal 1hrGTT -3hr GTT: all normal #Anemia: - H/o iron transfusions in prior . -CBC 09/27/23: Hb 12.0, Hct 36.4% -Currently taking daily iron 25 mg per patient report. -Written materials provided on dietary intake of iron rich foods. -HGB at 28 weeks: 10.7mg/dL, instructed to increase to 2 pills every other day. Re check Hgb at 32 weeks, instead of 34 weeks. 10.4 Ferritin 4.9 -S/p Iron infusion 01/19 # Nausea: Zofran prescription refilled. -Advised patient she may take over the counter vitamin B6 and Unisom if desires. -Discussed symptom management with small frequent meals. # Chronic diarrhea, nausea/vomiting and abdominal pain since 03/2023. * As of 10/17, nausea / vomiting and pain has improved. * Previous EGD and colonoscopy reportedly unrevealing. * GI consult with [facility] in [place] 08/22/23: fecal calprotectin, CRP, magnesium, SIBO and fructose breath tests ordered. CT planned . Follow up in 11/2023. # Possible subclinical hypothyroidism. * TSH < 0.015 on 08/30/23. Free T4 normal at 1.12, total T3 normal. * Referral to Endocrine: repeat TSH, free T4 and total T4 and TSI antibody testing recommended. She never followed up; thus, these tests are ordered here 01/31. * 02/01/24: TSH: 0.505, Free T4: 1.11, Total T4: 13.5 H, TSI negative. Should not need any additional evaluation or testing at this moment. * Consider repeating 6 weeks pp # History of Migraine with Aura: Previously on daily Propranolol and rescue Rizatriptan prepregnancy. Discontinued with positive UPT. -Not currently taking migraine medication. Advised patient to contact clinic if experiencing unmanageable headache. # Vitamin D deficiency. 26 on 09/19. On supplementation # Varicella is equivocal. PP vaccine [] Imagin01/30/2024: Vertex. Posterior placenta, three-vessel umbilical cord, normal amount of amniotic fluid with a single deepest pocket of amniotic fluid 6.2 cm. EFW: 2687 g, 46 percentile. Abdominal circumference: 67 percentile. Normal anatomy. Flu: Recommended, Patient desires, left clinic prior to administration. Nurse to call patient to offer. Covid: Recommended, declined Offer 3rd and final HPV vaccine PP [] OB - Problem Based A/P Additional Plan (1) : Status: Acute (2) Previous delivery affecting : Status: Acute Plan Given that she continues to have regular contractions and has a history of delivery, I opted to keep her for observation despite no change in cervical exam. She will be given IV fluids, morphine and Vistaril for contraction pain, and will be observed overnight. She was GBS negative at last check. She should have continuous monitoring. She will have T&S, CBC. We will obtain type and cross should we change her status to full admission. Delivery/Labor/Induction Plan Plan: expectant management OB Exam Physical Exam Vital signs: Pulse BP Pulse Ox 89 121/79 99 02/18/24 18:50 02/18/24 18:50 02/18/24 21:30 Narrative: Physical exam: General: No acute distress Psych: Alert and oriented x3, full affect HEENT: Normocephalic, atraumatic Neck: No cervical adenopathy, no thyromegaly Heart: Regular rate and rhythm, no murmur rub or gallop Lungs: Clear to auscultation bilaterally Abdomen: Soft, nontender, gravid, cephalic lie Lower extremities: No edema or erythema Pelvic exam: Cervical exam per RN - 2 / 50% / ballottable with no change after 2 hours tracing over last 30 min: baseline 135 / accelerations present / no decelerations /moderate variability.
[2024-02-18 21:57] LABS: Basophils Percent Auto 0.1 % (0.0-3.0); Eosinophils Percent Auto 0.3 % (0.0-7.0); Hematocrit 34.8 % (33.0-51.0); Hemoglobin* 11.8 gm/dL (12.0-16.0); Immature Granulocytes Pct Auto 0.5 %; Lymphocytes Percent Auto 15.7 % (20-44); Mean Corpuscular HGB Conc 34 gm/dL (32-36); Mean Corpuscular Hemoglobin 31 pg (26-34); Mean Corpuscular Volume 91 fL (80-100); Monocytes Percent Auto 5.6 % (0.0-11.0); Neutrophils Percent Auto 77.8 % (42.0-72.0); Platelet Count* 190 K/uL (140-440); Red Blood Count 3.81 m/uL (4.00-5.20); White Blood Count* 13.76 K/uL (4.50-11.00)
[2024-02-18 22:02] LABS: Slide Review Reflex No
--- OUTSIDE RECORDS SUMMARY | 2024-02-18 22:16 | XMS_ITS | Encounter Summary ---
Author Organization [facility] Address [address] [place] [address]. [place] [address] Care Team Providers Care Valve Inspector Name Role Phone Shalonda Barrett MD Primary [...] on filedocumented in this encounter Care Teams Valve Inspector Relationship Specialty Start Date End Date Shalonda Barrett MD [facility] & [address] [address] PCP - General Family Medicine 01/29/24 documented as of this encounter
--- OUTSIDE RECORDS SUMMARY | 2024-02-18 22:16 | XMS_ITS ---
Author Organization [facility] Address [address] [place] [address] Care Team Providers Care French Folder Name Role Phone Shalonda Barrett MD Primary Care Provider + Transitional Care Management Status:Closed (Closed) Start date:01/31/2024 Enrollment date:01/31/2024 End date:02/14/2024 Close reason:Goals met Continued Care and Services Coordination
--- OUTSIDE RECORDS SUMMARY | 2024-02-18 22:16 | XMS_ITS | Clinical Summary ---
Author Organization [facility] Address [address] [place] [address] Care Team Providers Care Air Defense Artillery Senior Sergeant Name Role Phone Elsewhere, Pcp Primary Care Provider Unavailabl e Source Comments Patient records contain information from all sites at [facility]. For routine questions regarding patient records, call [phone] during business hours, M-F 8:00 AM - 5:00 PM Central Time. Record requests for emergency care only can be directed to [phone] at any time.[facility] Allergies Active Allergy Reactions Criticality Noted Date Comments Ondansetron GI intolerance 06/08/2022 ODT and liquid forms only, cause n/v. Tolerates IV and oral pill formulations. Medications ermfikx-Eu-fohs-FA (VINATE ONE) 60 mg iron-1 mg per [...] CDT - 01/11/2024 6:48 PM CDT Emergency [facility] [address] [place] [address] Alvino Christianson, PTerryC., P.A. Pharyngitis Acute (Primary Dx) Discharge Disposition: Home or Self Care 12/06/2023 6:50 PM CDT - 12/06/2023 7:30 PM CDT Emergency [facility] [address] [place] [phone] Benny Cuevas M.D. Migraine Headache (Primary Dx); 27 Weeks Gestation (HCC) Discharge Disposition: Home or Self Care 12/06/2023 6:30 PM CDT Office Visit Urgent Care, [facility], in [place], [place] [address] [place] [phone] Ana Laura Block P.A.-C., P.A. Procedure And [...] In the past 12 months has e Attender, [employer], or water [employer] threatened to shut off services in your [...] How often do you attend chur or judaism services? Never 07/14/2022 Do you belong to any clubs o r organizations such as baptist groups, unions, fraternal or athletic groups, or [...] your living situation today? [facility] a [facility] place to live 08/17/2023 Education Answer [...] M ICROBIOLOGY - GENERAL ORDERABLES Final Result [facility] [address] [place] [address], [place] NPRG [facility] [address] [place] [address] from Last 3 Months Insurance [employer] Care Teams Air Defense Artillery Senior Sergeant Relationship Specialty Start Date End Date Elsewhere, Pcp PCP - General 08/30/21
--- OUTSIDE RECORDS SUMMARY | 2024-02-18 22:16 | XMS_ITS | Encounter Summary ---
Author Organization [facility] Address Critical access hospital0 [facility] [place] [address] Care Team Providers Care Manager Mission Name Role Phone No Ref-Primary, Physician Primary Care Provider Shalonda Barrett MD Primary Care Provider + Reason for Visit * Auth/Cert (Routine) Specialty Diagnoses / Procedures Referred By Berkley lubin Referred To Contact cinema operator Diagnoses Maternity*TONYA: * Labor uterine contractions Ur [facility] [address] [place] [address] Referral ID Status Reason Start Date Expiration Date Visits Re quested Visits Authorized [id number] 1 1 Encounter Details Date Type Department Care Team (Late st Contact Info) Description 01/28/[address] [facility] [address] [place] [address] Claus Herman MD [address] [facility] [address] [place] [address] Social History Tobacco Use Types [...] filedocumented in this encounter Care Teams Manager Mission Relationship Specialty Start Date End Date No Ref-Primary, Physician PCP - General 06/19/19 01/28/24 Shalonda Barrett MD [address] [address] PCP - General Family Medicine 01/29/24 documented as of this encounter
--- OUTSIDE RECORDS SUMMARY | 2024-02-18 22:16 | XMS_ITS | Encounter Summary ---
Author Organization [place] Address [facility]0 [facility] [place] [address] Care Team Providers Care Car Attendant Name Role Phone No Ref-Primary, Physician Primary Care Provider Shalonda Barrett MD Primary Care Provider + Reason for Visit * Reason Comments Labor * Auth/Cert (Routine) Specialty Diagnoses / Procedures Referred By Contac t Referred To Contact industrial truck driver Diagnoses Maternity*TONYA: * Labor uterine contractions Ur [address] [place] [address] Referral ID Status Reason Start Date Expiration Date Visits Re quested Visits Authorized [id number] 1 1 Encounter Details Date Type Department Care Team (Latest Contact Info) Description 01/28/2024 10:53 PM CDT - 01/30/2024 9:38 AM CDT Hospital Encounter [facility] [address] [place] [address] Claus Herman MD [address] [place] [address] Discharge Disposition: Home or Self [...] in an abandoned building, in an overnight chcf, or couch-surfing.) Yes 01/28/2024 Are you worried [...] Body Mass Index 23.04 06/19/2019 8:51 PM MUTUAL FUND ACCOUNTANT documented in this encounter Discharge Summaries * Jessa Zacarias MD - 01/30/2024 9:28 AM CDT [facility] Discharge Summary Sid Garcia Age: [age] [...] presents as a transfer of care from [facility] with concerns for labor. She [...] swelling, generalized unwell feeling Jessa Zacarias MD Mult Au Matic Operator PGY-3 01/30/24 9:31 AM Associated attestation - [...] Where can you learn more? Go to https://www.Feedjit.net/patiented Enter N531 in the search box to learn more about Learning About When to Call Your Doctor During (After 20 Weeks). Current as of: November 15, 2022 Content Version: 14.1 ?? [employer]. Care instructions adapted under license by your healthcare professional. If you have questions about a medical condition or this instruction, always ask your healthcare professional. [employer] disclaims any warranty or liability for your [...] bpm, mod variability, accelerations present, no decelerations Dudley: 0 contractions/10 minutes Imaging: [facility] US COMPREHENSIVE (01/30/24) IMPRESSION 1. Thomas [...] concern for labor as a ROBER form [place]. Her has been notable for: - History of delivery (failure to progress, second stage) - H/o hemorrhage requiring blood transfusion, Bakri balloon - Anemia - GCT elevated, normal GTT - Factor V Leiden heterozygote - Rubella equivocal - Migraines # C/f Labor Presented with painful uterine contractions to [place]. Workup at outside hospital concerning for possible increasing cervical effacement so transfer was recommended for higher level NICU cares. At presentation to [facility], infectious workup unremarkable including negative wet [...] and discussed with Dr. Claus Zacarias MD Mult Au Matic Operator PGY-3 01/30/24 8:42 AM Associated attestation - [...] with discharge to follow up with [facility] OB team. 25 MINUTES SPENT BY [...] bpm, mod variability, accelerations present, no decelerations Dudley: 2 contractions/10 minutes Assessment/Plan Abrial Douglas Garcia is a 23 year old @ 34w5d by LMP c/w 8w1d US, admitted with concern for labor as a ROBER form [place]. Her has been notable for: - History of delivery (failure to progress, second stage) - H/o hemorrhage requiring blood transfusion, Bakri balloon - Anemia - GCT elevated, normal GTT - Factor V Leiden heterozygote - Rubella equivocal - Migraines # C/f Labor Presented with painful uterine contractions to [place]. Workup at outside hospital concerning for possible increasing cervical effacement so transfer was recommended for higher level NICU cares. At presentation to [facility], infectious workup unremarkable including negative wet [...] and discussed with Dr. Claus Zacarias MD Mult Au Matic Operator PGY-3 01/29/24 11:02 AM Associated attestation - [...] OK for OP management and delivery at [place] after 35 weeks. Likely discontinue tomorrow am. [...] on exam, still posterior. Lev Alejandro MD ARCHEOLOGY FACULTY MEMBER PGY-3 01/29/2024 7:15 AM documented in this encounter H&P Notes * Lev Alejandro MD - 01/28/2024 11:34 PM CDT Images from the original note were not included. Antepartum History and Physical January 29, 2024 Sid Garcia [id number] HPI Sid Garcia is a 23 year old at 34w4d by LMP c/w 8w1d US who presents as a transfer ofcare from [facility] with concerns for labor. She started to notice back pain and frequent abdominal tightening this morning (01/27). She thought it was [place] [facility] contractions so continued with her planned [...] Physical Activity: Sufficiently Active (08/17/2023) Received from [facility] Exercise Vital Sign Days of Exercise per Week: 5 days Minutes of Exercise per Session: 60 min Stress: No Stress Concern Present (07/14/2022) Received from [facility] [employer] Occupational Health - Occupational Stress Questionnaire Feeling of Stress : Only a little Social Connections: Socially Isolated (07/14/2022) Received from [facility] Social Connection and Isolation Panel [NHANES] Frequency of Communication with Friends and Family: More than three times a week Frequency of Social Gatherings with Friends and Family: Once a week Attends Anabaptist Services: Never Active Member of Clubs or [...] 150 bpm, moderate variability, accelerations present, nodecelerations Dudley: 3-4 contractions in 10 minutes Impression: Category [...] Ketones Urine 100 (A) Negative mg/dL Specific [place] Urine 1.009 1.003 - 1.035 Blood Urine [...] Abnormality Status --------- ------ Adult Type and Screen[[id number]] Final result Please view results for these tests on the individual orders. Adult Type and Screen Result Value Ref Range ABO/RH(D) O POS Antibody Screen Negative Negative SPECIMEN EXPIRATION DATE [id number] Imaging Not available in system. Assessment/Plan 23 year old at 34w5d by LMP consistent with 8w1d US, transferred to [facility] for NICU cares in the setting [...] course - BMZ: s/p first dose at [place] 01/27 at 2108 - Magnesium not indicated [...] supervision of Dr. Herman. Lev Alejandro MD ARCHEOLOGY FACULTY MEMBER PGY-3 01/29/2024 4:34 AM Associated attestation - Claus Herman MD - 01/29/2024 11:33 AM CDT Physician Attestation I did not see the patient on this date. [facility] [...] PM CDT Patient arrived via ambulance from [facility] at 2255 and admitted to [...] Procedure Name Priority Date/Time Associated Diagnosis Comments [facility] US COMPREHENSIVE SINGLE Routine 01/30/2024 8:25 [...] ? Study Date: ??01/30/2024 7:08am Pat. NO: ??[id number] ?Referring ??MD: ROSA BARBA Site: ? Natural Gas Trader: Vicky Alvarado RDMS : ??2000 ?Age: ?? 23 ----- INDICATION ----- Inpatient. labor. METHOD ----- [facility] ANTEPARTUM inpatient exam. Transabdominal ultrasound examination. [...] lb 15 ?oz EFW by ? Hadlock ([id number]) Head / Face / Neck Biometry: Custom Home Installer ?4.3 ? mm CM ? 6.3 ? [...] view. RVOT view. LVOT view. 3-vessel view. 4-whxbie-zdfevnf view. Situs. Aortic arch view. Bicaval view. [...] GARCIA Study Date: 01/30/2024 7:08am Pat. NO: [id number] Referring MD: ROSA BARBA Site: [employer] Trader: Vicky Alvarado RDMS : 2000 Age: 23 ----- INDICATION ----- Inpatient. labor. METHOD ----- [facility] ANTEPARTUM inpatient exam. Transabdominal ultrasound examination.View: [...] EFW (lb,oz) 5 lb 15oz EFW by Hadlock([id number]) Head / Face / Neck Biometry: Custom Home Installer 4.3mm CM 6.3mm Nasal bone 10.4mm ANATOMY ----- The following structures appear normal: Head / Neck Cranium. Head size. Head shape.Lateral ventricles. Choroid plexus. Midline falx. Cavum septi pellucidi.Cerebellum. Cisterna magna. Parenchyma. Thalami. Vermis. Neck. Face Lips. Profile. Nose. Maxilla.Mandible. Orbits. Lens. Heart / Thorax 4-chamber view. RVOT view. LVOT view.3-vessel view. 9-uqxewc-wbszsag view. Situs. Aortic arch view. Bicavalview. Ductal [...] fluid volume appeared normal. Jessa Zacarias MD [facility] US ORDERABLE S * (ABNORMAL) CBC with platelets (01/29/2024 10:06 AM CDT) [facility] Signature WBC Count 9.9 4.0 - [...] LAB - BLOOD ORDERABL ES UR LABORATORY [facility] Acute Care Lab [facility]0 [facility], [address] [place] [phone] * Adult Type and Screen (01/29/2024 12:56 AM CDT) ABO/RH(D) O POS 01/29/2024 12:34 AM CDT UR BLOOD BANK Antibody Screen Negative Negative 01/29/2024 12:34 AM CDT UR BLOOD BANK SPECIMEN EXPIRATION DATE [id number] 01/29/2024 12:34 AM CDT UR BLOOD BANK Blood STRUCTURE OF RIGHT UPPER LIMB / Unknown Venipuncture / Unknown 01/29/2024 12:56 AM CDT 01/29/2024 1:02 AM CDT Lev Alejandro MD LAB - BLOOD BANK RICHARD T ORDER Performing Organization Address [facility]/ZIP Co de Phone Number UR BLOOD BANK [facility] Blood Components Lab [address] [place] [address], Room [place] [phone] * (ABNORMAL) UA with Microscopic reflex [...] 01/29/2024 1:05 AM CDT UR LABORATORY Specific [place] Urine 1.009 1.003 - 1.035 01/29/2024 1:05 [...] LAB - URINE ORDERABL ES UR LABORATORY [facility] Acute Care Lab [address] [facility], [address] [place] [address], [facility] * Chlamydia trachomatis/Neisseria gonorrhoeae by PCR (01/29/2024 12:38 AM CDT) Chlamydia Trachomatis Negative Negative 01/29/2024 11:09 AM CDT [facility] Comment: Negative for C. trachomatis rRNA by financial project manager mediated amplification. A negative result by financial project manager mediated amplification does not preclude the presence of infection because results are dependent on proper and adequate collection, absence of inhibitors and sufficient rRNA to be detected. Neisseria gonorrhoeae Negative Negative 01/29/2024 11:09 AM CDT [facility] Comment:Negative for N. gono rrhoeae rRNA by financial project manager mediated amplification. A negative result by financial project manager mediated amplification does not preclude the presence of C. trachomatis infection because results are dependent on proper and adequate collection, absence of inhibitors and sufficient rRNA to be detected. Swab CERVIX UTERI STRUCTURE / Unknown Non-blood Collection / Unknown 01/29/2024 12:38 AM CDT 01/29/2024 12:45 AM CDT Lev Alejandro MD LAB - MICRO GENERAL ORDERABLES [facility] Inf. Diseases Diag. Lab [address] [facility], [address] [place] [address], [facility] * (ABNORMAL) Wet prep (01/29/2024 12:38 [...] LAB - MICRO GENERAL ORDERABLES UR LABORATORY [facility] Acute Care Lab [address] [facility], [address] [place] [address], [facility] * Group B strep PCR (01/29/2024 [...] LABORATORY - 01/29/2024 8:46 PM CDT [employer] Xpert GBS LB Assay, performed on the [employer]?? [employer] Systems, is a qualitative in vitro diagnostic [...] settings. The device is not intended for ummui-mi-gkkm use. Lev Alejandro MD LAB - MICRO GENERAL ORDERABLES [facility] Inf. Diseases Diag. Lab [address] [facility], [address] [place] [address] * HIV-1 Antibody (External Result) (07/27/2023 12:27 AM CDT) HIV 1&2 Antibody (External) Negative Nonreactive [facility] 07/27/2023 12:2 7 AM CDT Patient Reported LAB - HIM EXTERNAL R ESULT [facility] [address] [place], [place] [id number] [place] [address] * Hepatitis B Surface Antigen (External Result) (07/27/2023 12:27 AM CDT) Hepatitis B Surface Antigen (External) Negative [facility] 07/27/2023 12:2 7 AM CDT Patient Reported LAB - HIM EXTERNAL R ESULT [facility] [address] [place] [address], [facility] [phone] * Rubella Antibody IgG (External Result) (07/27/2023 12:27 AM CDT) Rubella Antibody IgG (External) Immune Nonreactive [facility] 07/27/2023 12:2 7 AM CDT Patient Reported LAB - HIM EXTERNAL R ESULT Performing Organization Address City/[facility]/ZIP Co de Phone Number [facility] [address] [place] [address], [facility] [phone] documented in this encounter Visit Diagnoses Diagnosis [...] 0840 (See Alternative - Provider: Daly Quintana, ENCOH) sodium chloride (PF) 0.9% PF flush 3 [...] not exceed 2 doses in 24 hours. 1743 ($Given - Provider: Ledy Allred RN) Linked [...] Antepartum documented in this encounter Care Teams Car Attendant Relationship Specialty Start Date End Date No Ref-Primary, Physician PCP - General 06/19/19 01/28/24 Shalonda Barrett MD [facility] [address] [place] [address] PCP - General Family Medicine 01/29/24 documented as of this encounter
--- OUTSIDE RECORDS SUMMARY | 2024-02-18 22:16 | XMS_ITS | Clinical Summary ---
Author Organization [place] Address [address] [place] [address]. [place] [address] Care Team Providers Care Technology Coach Name Role Phone Shalonda Barrett MD Primary [...] AM CDT Hospital Encounter [facility] [address] [facility] [place] [address] Claus Herman MD Discharge Disposition: Home or Self Care 01/28/2024 Hospital Encounter [facility] [address] [facility] [place] [address] Claus Herman MD from Last 3 [...] in an abandoned building, in an overnight residential, or couch-surfing.) Yes 01/28/2024 Are you worried [...] CDT Oxygen Saturation 96% 06/19/2019 11:22 PM ON AIR HOST Inhaled Oxygen Concentration - - Weight 60.9 kg (134 lb 3.2 oz) 01/29/2024 7:35 A M CDT Height 162.6 cm (5' 4) 06/19/2019 8:51 PM ON AIR HOST Body Mass Index 23.04 06/19/2019 8:51 PM ON AIR HOST Plan of Treatment Health Maintenance Due Date [...] Procedure Name Priority Date/Time Associated Diagnosis Comments [facility] US COMPREHENSIVE SINGLE Routine 01/30/2024 8:25 [...] ? Study Date: ??01/30/2024 7:08am Pat. NO: ??[id number] ?Referring ??MD: ROSA BARBA Site: ? Utilization Management Manager: Vicky Alvarado RDMS : ??2000 ?Age: ?? 23 ----- INDICATION ----- Inpatient. labor. METHOD ----- [facility] ANTEPARTUM inpatient exam. Transabdominal [...] lb 15 ?oz EFW by ? Hadlock ([id number]) Head / Face / Neck Biometry: Freight Adjuster ?4.3 ? mm CM ? 6.3 ? [...] view. RVOT view. LVOT view. 3-vessel view. 4-jnxguj-zipucav view. Situs. Aortic arch view. Bicaval view. [...] GARCIA Study Date: 01/30/2024 7:08am Pat. NO: [id number] Referring MD: ROSA BARBA Site: Utilization Management Manager: Vicky Alvarado RDMS : 2000 Age: 23 ----- INDICATION ----- Inpatient. labor. METHOD ----- [facility] ANTEPARTUM inpatient exam. Transabdominal [...] EFW (lb,oz) 5 lb 15oz EFW by Hadlock([id number]) Head / Face / Neck Biometry: Freight Adjuster 4.3mm CM 6.3mm Nasal bone 10.4mm ANATOMY ----- The following structures appear normal: Head / Neck Cranium. Head size. Head shape.Lateral ventricles. Choroid plexus. Midline falx. Cavum septi pellucidi.Cerebellum. Cisterna magna. Parenchyma. Thalami. Vermis. Neck. Face Lips. Profile. Nose. Maxilla.Mandible. Orbits. Lens. Heart / Thorax 4-chamber view. RVOT view. LVOT view.3-vessel view. 9-bsadhf-dfjjifd view. Situs. Aortic arch view. Bicavalview. Ductal [...] fluid volume appeared normal. Jessa Zacarias MD [facility] US ORDERABLE S * (ABNORMAL) CBC with platelets (01/29/2024 10:06 AM CDT) [facility] WBC Count 9.9 4.0 - 11.0 10e3/uL [...] [facility] Acute [facility] Lab [address] [place] [address], [address] * Adult Type and Screen (01/29/2024 12:56 AM CDT) ABO/RH(D) O POS 01/29/2024 12:34 AM CDT UR BLOOD BANK Antibody Screen Negative Negative 01/29/2024 12:34 AM CDT UR BLOOD BANK SPECIMEN EXPIRATION DATE [id number] 01/29/2024 12:34 AM CDT UR BLOOD BANK Blood STRUCTURE OF RIGHT UPPER LIMB / Unknown Venipuncture / Unknown 01/29/2024 12:56 AM CDT 01/29/2024 1:02 AM CDT Lev Alejandro MD LAB - BLOOD BANK RICHARD T ORDER Performing Organization Address City/[facility]/ZIP Co de Phone Number UR BLOOD BANK [facility] Blood Components Lab [address] [place] [address], Room [address] * (ABNORMAL) UA with Microscopic reflex [...] 01/29/2024 1:05 AM CDT UR LABORATORY Specific [place] Urine 1.009 1.003 - 1.035 01/29/2024 1:05 [...] [facility] Acute Care Lab [address] [facility], [address] [place] [address] * Chlamydia trachomatis/Neisseria gonorrhoeae by PCR (01/29/2024 12:38 AM CDT) Pathologist [facility] Chlamydia Trachomatis Negative Negative 01/29/2024 11:09 AM CDT [facility] Comment: Negative for C. trachomatis rRNA by correctional agency director mediated amplification. A negative result by correctional agency director mediated amplification does not preclude the presence of infection because results are dependent on proper and adequate collection, absence of inhibitors and sufficient rRNA to be detected. Neisseria gonorrhoeae Negative Negative 01/29/2024 11:09 AM CDT [facility] Comment:Negative for N. gono rrhoeae rRNA by correctional agency director mediated amplification. A negative result by correctional agency director mediated amplification does not preclude the presence of C. trachomatis infection because results are dependent on proper and adequate collection, absence of inhibitors and sufficient rRNA to be detected. Swab CERVIX UTERI STRUCTURE / Unknown Non-blood Collection / Unknown 01/29/2024 12:38 AM CDT 01/29/2024 12:45 AM CDT Lev Alejandro MD LAB - MICRO GENERAL ORDERABLES [facility] Inf. Diseases Diag. Lab [address] [facility], [address] [place] [address] * (ABNORMAL) Wet prep (01/29/2024 [...] LAB - MICRO GENERAL ORDERABLES UR LABORATORY [facility] Acute Care Lab [address], [address] [place] [address] * Group B strep PCR [...] Xpert GBS LB Assay, performed on the [employer]?? [employer] Systems, is a qualitative in vitro [...] settings. The device is not intended for uqiut-jd-olkg use. Lev Alejandro MD LAB - MICRO GENERAL ORDERABLES Performing Organization Address City/[facility]/ZIP Co de Phone Number [facility] Inf. Diseases Diag. Lab [address] [facility], [address] [place] [address] * HIV-1 Antibody (External Result) (07/27/2023 12:27 AM CDT) HIV 1&2 Antibody (External) Negative Nonreactive [facility] 07/27/2023 12:2 7 AM CDT Patient Reported LAB - HIM EXTERNAL R ESULT Performing Organization Address City/[facility]/ZIP Co de Phone Number [facility] [address] [place], [place] [address] [phone] from Last 3 Months or Most Recently Relevant to Health Maintenance Advance Directives For more information, please contact: [phone] * Full Code (Latest Code Status on File) Date Activated Date Inactivated Comments 01/29/2024 12:33 AM 01/30/2024 11:44 AM All basic and advanced life-sustaining interventions are performed as appropriate Question Answer Comments Code status determined by: Discussion with patie nt/ legal decision maker Care Teams Technology Coach Relationship Specialty Start Date End Date Shalonda Barrett MD [facility] [address] [place] [address] PCP - General Family Medicine 01/29/24
--- OUTSIDE RECORDS SUMMARY | 2024-02-18 22:16 | XMS_ITS | Encounter Summary ---
Author Organization [facility] Address [address] [place] [address] Care Team Providers Care Wood Fence Installer Name Role Phone Elsewhere, Pcp Primary Care Provider Unavailabl e Reason for Visit * Reason Comments Sore Throat Pt presents w/throat pain onset last night, denies cough and fever. Encounter Details Date Type Department Care Team (Late st Contact Info) Description 01/11/2024 5:07 PM CDT - 01/11/2024 6:48 PM CDT Emergency [facility] [address] [place] [address] Alvino Christianson, PDedraA.-Amena., P.A. [address] [phone] Pharyngitis Acute (Primary Dx) Discharge Disposition: Home or Self Care Social History Tobacco Use Types Packs/Day Years Used Date Smoking Tobacco: Never Passive Smoke Exposure: Never Smokeless Tobacco: Never Alcohol Use Standard Drinks/Week Comments No 0 (1 standard drink = 0.6 oz pur e alcohol) [facility] Utilities Answer Date Recorded In [...] heating? Somewhat hard 07/14/2022 [facility] [place] of Occupat ional Health - Occupational Stress [...] your living situation today? I [facility] a [facility] to live 08/17/2023 Education Answer [...] HOURS NEEDED FOR NAUSEA AND VOMITING 07/27/2023 dtsvram-Lv-zjig-FA (VINATE ONE) 60 mg iron-1 mg per [...] M ICROBIOLOGY - GENERAL ORDERABLES Final Result [facility] LAB [address] [place] [address], [facility] [employer] [employer] [address] [place] [address] documented in this encounter Visit Diagnoses Diagnosis Pharyngitis Acute- Primary documented in this encounter Care Teams Wood Fence Installer Relationship Specialty Start Date End Date Elsewhere, Pcp PCP - General 08/30/21 documented as of this encounter
--- OUTSIDE RECORDS SUMMARY | 2024-02-18 22:16 | XMS_ITS ---
Author Organization [facility] Address [address] [place] [address] Care Team Providers Care Operating Room Manager Name Role Phone Unavailable Unavailable Unavailable Surgery Details Not on file Complications Check Surgery Details section. Procedure Estimated Blood Loss Check Surgery Details section. Procedure Findings Check Surgery Details section. Procedure Specimens Taken Check Surgery Details section.
--- OUTSIDE RECORDS SUMMARY | 2024-02-18 22:16 | XMS_ITS | Referral Summary ---
Author Organization [facility] Address [address] [place] [address] Care Team Providers Care Operator Lights Name Role Phone Elsewhere, Pcp Primary Care Provider Unavailabl e Source Comments Patient records contain information from all sites at [facility]. For routine questions regarding patient records, call [phone] during business hours, M-F 8:00 AM - 5:00 PM Central Time. Record requests for emergency care only can be directed to [phone] at any time.[facility] Encounters Date Type Department Care Team Description 01/11/2024 5:07 PM CDT - 01/11/2024 6:48 PM CDT Emergency [facility] [address] [place] [phone] Alvino Christianson P.A.-C., P.A. Pharyngitis Acute (Primary Dx) Discharge Disposition: Home or Self Care 12/06/2023 6:50 PM CDT - 12/06/2023 7:30 PM CDT [facility] [address] [place] [phone] Benny Cuevas M.D. Migraine Headache (Primary Dx); 27 Weeks Gestation (HCC) Discharge Disposition: Home or Self Care 12/06/2023 6:30 PM CDT Office Visit Urgent Care, [facility], in [place], [place] [address] [place] [phone] Ana Laura Block P.A.-C., P.A. Procedure And Treatment Not Carried Out Due To Patient Leaving Prior To Being Seen By Health Care Provider (Primary Dx) Discharge Disposition: Home or Self Care from Last 3 Months Allergies Active Allergy Reactions Criticality Noted Date Comments Ondansetron GI intolerance 06/08/2022 ODT and liquid forms only, cause n/v. Tolerates IV and oral pill formulations. Medications ellabww-Gk-yzoh-FA (VINATE ONE) 60 mg iron-1 mg per [...] = 0.6 oz pur e alcohol) [facility] Utilities Answer Date Recorded In the past 12 months has e [employer], [employer], or water [employer] threatened to shut off services in your [...] How often do you attend chur or anabaptism services? Never 07/14/2022 Do you belong to [...] medical care, and heating? Somewhat hard 07/14/2022 [facility] - Occupational [...] living situation today? I have a [facility] place to live 08/17/2023 Education Answer [...] M ICROBIOLOGY - GENERAL ORDERABLES Final Result [facility] [employer] [facility] [address] [place] [address], [place] NPRG [facility] [address] [place] [address] from Last 3 Months Insurance UC[employer] Care Teams Operator Lights Relationship Specialty Start Date End Date Elsewhere, Pcp PCP - General 08/30/21
--- OUTSIDE RECORDS SUMMARY | 2024-02-18 22:16 | XMS_ITS | Referral Summary ---
Author Organization [facility] Address [address] [place] [address]. [place] [address] Care Team Providers Care Shop Tailor Name Role Phone Shalonda Barrett MD Primary Care Provider + Encounters Date Type Department Care Team Description 01/28/2024 10:53 PM CDT - 01/30/2024 9:38 AM CDT Hospital Encounter [facility] [address] [place] [phone] Claus Herman MD Discharge Disposition: Home or Self Care 01/29/2024 Travel 01/28/2024 Hospital Encounter [facility] [address] [place] [phone] Claus Herman MD from Last 3 Months [...] in an abandoned building, in an overnight mcc, or couch-surfing.) Yes 01/28/2024 Are you worried [...] CDT Oxygen Saturation 96% 06/19/2019 11:22 PM FISH CLEANER Inhaled Oxygen Concentration - - Weight 60.9 kg (134 lb 3.2 oz) 01/29/2024 7:35 A M CDT Height 162.6 cm (5' 4) 06/19/2019 8:51 PM FISH CLEANER Body Mass Index 23.04 06/19/2019 8:51 PM FISH CLEANER Plan of Treatment Not on file Procedures Procedure Name Priority Date/Time Associated Diagnosis Comments [facility] US COMPREHENSIVE SINGLE Routine 01/30/2024 8:25 [...] ? Study Date: ??01/30/2024 7:08am Pat. NO: ??[id number] ?Referring ??MD: ROSA BARBA Site: ? Tele Grout Sewer Line Repairer: Vicky Alvarado RDMS : ??2000 ?Age: ?? [...] ?5 lb 15 ?oz EFW by ? [id number]) Head / Face / Neck Biometry: Batt Packer ?4.3 ? mm CM ? 6.3 [...] view. RVOT view. LVOT view. 3-vessel view. 1-ugtonv-kecewqr view. Situs. Aortic arch view. Bicaval view. [...] DONAHUE Study Date: 01/30/2024 7:08am Pat. NO: [id number] Referring MD: ROSA BARBA Site: Tele [employer]out Sewer Line Repairer: Vicky Alvarado RDMS : 2000 Age: 23 [...] EFW (lb,oz) 5 lb 15oz EFW by [facility]([id number]) Head / Face / Neck Biometry: Batt Packer 4.3mm CM 6.3mm Nasal bone 10.4mm ANATOMY ----- The following structures appear normal: Head / Neck Cranium. Head size. Head shape.Lateral ventricles. Choroid plexus. Midline falx. Cavum septi pellucidi.Cerebellum. Cisterna magna. Parenchyma. Thalami. Vermis. Neck. Face Lips. Profile. Nose. Maxilla.Mandible. Orbits. Lens. Heart / Thorax 4-chamber view. RVOT view. LVOT view.3-vessel view. 2-oedjqr-vvdctab view. Situs. Aortic arch view. Bicavalview. Ductal [...] fluid volume appeared normal. Jessa Zacarias MD [facility] US ORDERABLE S * (ABNORMAL) CBC with platelets (01/29/2024 10:06 AM CDT) [facility] Signature WBC Count 9.9 4.0 - [...] LAB - BLOOD ORDERABL ES UR LABORATORY [facility] Acute [facility] Lab [address] [place] [address], Room [address] * Adult Type and Screen (01/29/2024 12:56 AM CDT) ABO/RH(D) O POS 01/29/2024 12:34 AM CDT UR BLOOD BANK Antibody Screen Negative Negative 01/29/2024 12:34 AM CDT UR BLOOD BANK SPECIMEN EXPIRATION DATE [id number] 01/29/2024 12:34 AM CDT UR BLOOD BANK Blood STRUCTURE OF RIGHT UPPER LIMB / Unknown Venipuncture / Unknown 01/29/2024 12:56 AM CDT 01/29/2024 1:02 AM CDT Lev Alejandro MD LAB - BLOOD BANK RICHARD T ORDER UR BLOOD BANK [facility] Blood Components Lab [address] [place] [address], Room [address] * (ABNORMAL) UA with Microscopic reflex [...] 01/29/2024 1:05 AM CDT UR LABORATORY Specific [place] Urine 1.009 1.003 - 1.035 01/29/2024 1:05 [...] LAB - URINE ORDERABL ES UR LABORATORY [facility] Acute Care Lab [address] [facility] [address] [place] [phone] * Chlamydia trachomatis/Neisseria gonorrhoeae by PCR (01/29/2024 12:38 AM CDT) Pathologist [facility] Chlamydia Trachomatis Negative Negative 01/29/2024 11:09 AM CDT [facility] Comment: Negative for C. trachomatis rRNA by lens generator mediated amplification. A negative result by lens generator mediated amplification does not preclude the presence of infection because results are dependent on proper and adequate collection, absence of inhibitors and sufficient rRNA to be detected. Neisseria gonorrhoeae Negative Negative 01/29/2024 11:09 AM CDT [facility] Comment:Negative for N. gono rrhoeae rRNA by lens generator mediated amplification. A negative result by lens generator mediated amplification does not preclude the presence [...] [facility]. [facility] Lab [address] [facility], [address] [place] [phone] * (ABNORMAL) Wet prep (01/29/2024 12:38 AM CDT) Pathologist [facility] Trichomonas Absent Absent JET 01/29/2024 1:01 AM [...] ORDERABLES UR LABORATORY [facility] [employer] [facility] Acute Care Lab [address] [facility], [address] [place] [address], [facility] * Group B strep PCR (01/29/2024 [...] LABORATORY - 01/29/2024 8:46 PM CDT The CepROCKIid Xpert GBS LB Assay, performed on the Baby [employer]end[employer]?? [employer], is a qualitative in vitro diagnostic [...] settings. The device is not intended for cxoem-us-kliy use. Lev Alejandro MD LAB - MICRO GENERAL ORDERABLES [facility] Inf. Diseases Diag. Lab [address] [facility], [address] [place] [phone], [facility] * HIV-1 Antibody (External Result) (07/27/2023 12:27 AM CDT) HIV 1&2 Antibody (External) Negative Nonreactive [facility] 07/27/2023 12:2 7 AM CDT Patient Reported LAB - HIM EXTERNAL R ESULT [address] [address], [facility] [phone] from Last 3 Months or Most Recently Relevant to Health Maintenance Advance Directives For more information, please contact: [phone] * Full Code (Latest Code Status on File) Date Activated Date Inactivated Comments 01/29/2024 12:33 AM 01/30/2024 11:44 AM All basic and advanced life-sustaining interventions are performed as appropriate Question Answer Comments Code status determined by: Discussion with camilo nt/ legal decision maker Care Teams Shop Tailor Relationship Specialty Start Date End Date Shalonda Barrett MD [facility] [address] [place] [address] PCP - General Family Medicine 01/29/24
--- OUTSIDE RECORDS SUMMARY | 2024-02-18 22:17 | XMS_ITS | Clinical Summary ---
Author Organization [facility] Address [place], [place] [address] Care Team Providers Care Hosiery Mater Name Role Phone [facility], [facility] Primary Care Pr ovider Allergies No [...] Relation Name Comments Bipolar disorder Brother 1 [place] Thyroid Disease Brother 1 [place] Good Health Brother 2 Desai Good Health [...] disease Relation Name Status Comments Brother 1 [place] Alive Brother 2 [place] Alive Father Maternal [...] Comments Blood Pressure 118/72 06/30/2022 2:37 PM RESIDENTIAL NURSE Pulse 83 06/30/2022 2:37 PM RESIDENTIAL NURSE Temperature 36.9 ??C (98.4 ??F) 12/25/2021 4:00 PM CD T Respiratory Rate 16 12/25/2021 4:00 PM CDT Oxygen Saturation 98% 12/25/2021 4:00 PM CDT Inhaled Oxygen Concentration - - Weight 52.2 kg (115 lb) 06/30/2022 2:37 PM RESIDENTIAL NURSE Height 162.6 cm (5' 4) 12/25/2021 [...] Procedure Name Priority Date/Time Associated Diagnosis Comments INSURANCE SALESMAN THIN PREP PAP SCREEN IMAGED Routine 03/24/2023 12:00 PM RESIDENTIAL NURSE from Last 3 Months or Most Recently Relevant to Health Maintenance Results * INSURANCE SALESMAN THIN PREP PAP SCREEN IMAGED (03/24/2023 12:00 PM RESIDENTIAL NURSE) Case Report Gynecologic Cytology Report ? Case: [id number] ? Authorizing Provider: ??Harmony Colon ?Collected: ? 03/24/2023 1200 ? MD Lennie ? Ordering Location: ? [facility] ?Received: ?03/28/2023 1655 ? First Screen: ?Nino Dimas ? Specimen: ?INSURANCE SALESMAN ThinPrep Vial Screening, Cervical ? 04/07/2023 1:26 PM RESIDENTIAL NURSE [facility] ENTRAL LABORATORY INTERPRETATION/ RESULT NEGATIVE FOR INTRAEPITHELIAL LESION OR MALIGNANCY (NIL) (none) 04/07/2023 1:26 PM RESIDENTIAL NURSE [facility] ENTRAL LABORATORY IMEN ADEQUACY Satisfactory for evaluation Endocervical component present 04/07/2023 1:26 PM RESIDENTIAL NURSE [facility] HPV REQUEST HPV not requested 2022 1:26 PM RESIDENTIAL NURSE [facility] Date of LMP 03/05/2023 04/07/2023 1:26 PM RESIDENTIAL NURSE [facility] Abnormal Pap or [place] Bx in last 5 years No 04/07/2023 1:26 PM RESIDENTIAL NURSE [facility] Menstrual Status Irregular Periods 04/07/2023 1:26 PM RESIDENTIAL NURSE [facility] [place] Bx Done Today No 04/07/2023 1:26 PM RESIDENTIAL NURSE [facility] Additional Information 04/07/2023 1:26 PM RESIDENTIAL NURSE [facility] Comment: Interpreted at [facility] - [address] [place] [id number] Automated Review Successful 04/07/2023 1:26 PM RESIDENTIAL NURSE [facility] Comment:Specimen processed s uccessfully by automated assembly inspector helper device, ThinPrep Imaging System, [employer] Note The pap test is a screening technique, not a diagnostic procedure. It is used primarily to screen for squamous cancers and precursor lesions. Published studies have shown that it is subject to both false negative and false positive results. The pap test should not be used as the sole means to diagnose or exclude pre-malignant and malignant lesions. 04/07/2023 1:26 PM RESIDENTIAL NURSE [facility] Other (Cervical) 03/24/2023 12:00 PM RESIDENTIAL NURSE 03/28/2023 4:55 PM RESIDENTIAL NURSE Harmony Colon MD PATHOLOGY/ CYTOLOGY [facility] [employer] [facility] [address] [place] [address], [place] from Last 3 Months or Most Recently Relevant to Health Maintenance Care Teams Hosiery Mater Relationship Specialty Start Date End Date Clinic, [facility] [address] [place] [address] PCP - General 12/19/23
--- OUTSIDE RECORDS SUMMARY | 2024-02-18 22:17 | XMS_ITS | Encounter Summary ---
Author Organization [facility] Address [address] [place] [address] Care Team Providers Care Automation Sales Manager Name Role Phone Elsewhere, Pcp [...] CDT - 12/06/2023 7:30 PM CDT Emergency [facility] [address] [place] [phone] Benny Cuevas M.D. [address] [place] [phone] Migraine Headache (Primary Dx); 27 Weeks Gestation (HCC) Discharge Disposition: Home or Self Care Social History Tobacco Use Types Packs/Day Years Used Date Smoking Tobacco: Never Passive Smoke Exposure: Never Smokeless Tobacco: Never Alcohol Use Standard Drinks/Week Comments No 0 (1 standard drink = 0.6 oz pur e alcohol) [facility] Utilities Answer Date Recorded [...] How often do you attend chur or hindu services? Never 07/14/2022 Do you belong to [...] medical care, and heating? Somewhat hard 07/14/2022 [facility] Occupat ional Health - Occupational Stress [...] your living situation today? [facility] 08/17/2023 Education Answer [...] you are . Follow up with your criminal defense lawyer if your headache isn't improving by tomorrow. * Attachments The following attachments cannot be sent through Care Everywhere. * Migraine Headache (Hebrew) documented in this encounter Medications at Time of Discharge docosahexaenoic acid 200 mg capsule Take by mouth. 07/27/2023 ferrous sulfate (IRON ORAL) Take by mouth. ondansetron ODT (ZOFRAN-ODT) 4 mg disintegrating tablet DISSOLVE ONE TABLET BY MOUTH EVERY 8 HOURS NEEDED FOR NAUSEA AND VOMITING 07/27/2023 yuxbkct-Fc-mcly-FA (VINATE ONE) 60 mg iron-1 mg per [...] Headache 2. 27 Weeks Gestation ([facility]) ED Disposition Discharge ED Prescriptions Medication Sig Dispense Start Date End Date Auth. Provider promethazine (Phenergan) 25 mg tablet Take 1 tablet (25 mg total) by mouth every 6 (six) hours as needed for nausea or vomiting (Headache). 15 tablet 12/06/2023 -- Benny Cuevas M.D. Notes are completed with voice recognition dictation software. Errors are generally corrected in real-time. Please message me via [employer] In Basket if you note any areas [...] R.N.) documented in this encounter Care Teams Automation Sales Manager Relationship Specialty Start Date End Date Elsewhere, Pcp PCP - General 08/30/21 documented as of this encounter
--- OUTSIDE RECORDS SUMMARY | 2024-02-18 22:17 | XMS_ITS | Encounter Summary ---
Author Organization [facility] Address [address] [place] [address] Care Team Providers Care Computer Graphics Illustrator Name Role Phone Elsewhere, Pcp Primary Care Provider Unavailabl e Encounter Details Date Type Department Care Team (Late st Contact Info) Description 12/06/2023 6:30 PM CDT Office Visit Urgent Care, [facility], in [place], [place] [address] [place] [phone] Ana Laura Block, PDuc-Amena., P.A. [address] [place] [phone] Procedure And Treatment Not Carried Out Due [...] Recorded In the past 12 months has [employer], gas, oil, or water [employer] threatened to shut off services in your [...] any clubs o r organizations such as caodaism groups, unions, fraternal or athletic groups, or [...] medical care, and heating? Somewhat hard 07/14/2022 [facility] of Occupat ional Health - Occupational Stress [...] your living situation today? I have a [facility] place to live 08/17/2023 Education Answer [...] Primary documented in this encounter Care Teams Computer Graphics Illustrator Relationship Specialty Start Date End Date Elsewhere, Pcp PCP - General 08/30/21 documented as of this encounter
[2024-02-18] MEDS: MORPHINE 10 MG/ML inj IM (22:33)
[2024-02-18] MEDS: PROMETHAZINE 25 MG/ML INJ 12.5 MG IVP (22:33)
[2024-02-19] VITALS (30 sets, daily range): BP systolic 97–113; BP diastolic 51–64; PULSE 70–108; RESP 20; TEMP 36.6–36.9; O2SAT 91–100
[2024-02-19] MEDS: SUMAtriptan succinate 50 MG TABLET PO (04:37)
[2024-02-19] MEDS: PROMETHAZINE 25 MG/ML INJ 12.5 MG IVP (04:37)
[2024-02-19] MEDS: LACTATED RINGERS 500 ML 500 ML 1000 ML IV (06:32)
--- NOTE | 2024-02-19 08:35 | PC.OBNST ---
NST Note NST Note Start: 02/18/24 18:18 Freq: ONCE Status: Active Protocol: Document 02/19/24 08:20 VMM (Rec: 02/19/24 08:35 VMM Desktop) NST Note 3 Para (# of births) 1 EDC 03/06/24 Gestational Age In Weeks & Days 37 Weeks & 5 Days Patient Presented with Complaint(s) of Contractions/cramping Reactive Yes Appropriate for Gestational Age Yes RN Wilfredo Edwards, RN Date 02/19/24 Reactive Yes Appropriate for Gestational Age Yes ENOCH Wen RN Date 02/19/24 OB NST charge Yes Complete NST Note via Write Note Yes The provider's electronic signature indicates the NST is reactive/appropriate for gestational age. *Note to provider: If an addendum is required, open the patient's chart and click on the note under the Nurse/Allied Health tab.
== END 2024-02-19 08:22 | disposition home or self-care (01) ==
LOC: OB OUT 21:35 → OB 22:14
PROVIDERS: Admitting Provider Obstetrics & Gynecology; PCP Family Medicine; Visit Provider Obstetrics & Gynecology
DX: O62.0 Primary inadequate contractions (principal); O34.219 Maternal care for unspecified type scar from previous cesarean delivery; O99.013 Anemia complicating pregnancy, third trimester; D64.9 Anemia, unspecified; O09.893 Supervision of other high risk pregnancies, third trimester; Z87.59 Personal history of other complications of pregnancy, childbirth and the puerperium; E55.9 Vitamin D deficiency, unspecified; R11.0 Nausea; O09.213 Supervision of pregnancy with history of pre-term labor, third trimester; Z79.899 Other long term (current) drug therapy; Z3A.37 37 weeks gestation of pregnancy
CPT/HCPCS: 36415; 59025; 85025; 86850; 86900; 86901; 96372; 96374; 96376; A9270; G0378; G0379; J2270; J2550; J7120

== ENCOUNTER 2024-02-20 02:20 | Inpatient (IN) | payer MEDICAID, SELFPAY ==
[2024-02-20] VITALS (72 sets, daily range): BP systolic 80–132; BP diastolic 46–81; PULSE 80–128; RESP 16–18; TEMP 36.4–37.1; O2SAT 93–100; BMI 24.3
--- OUTSIDE RECORDS SUMMARY | 2024-02-20 01:49 | XMS_ITS | Clinical Summary ---
Author Organization [facility] Address [address] [place] [address] Care Team Providers Care Senior Program Planner Name Role Phone Elsewhere, Pcp Primary Care Provider Unavailabl e Source Comments Patient records contain information from all sites at [facility]. For routine questions regarding patient records, call [phone] during business hours, M-F 8:00 AM - 5:00 PM Central Time. Record requests for emergency care only can be directed to [phone] at any time.[facility] Allergies Active Allergy Reactions Criticality Noted Date Comments Ondansetron GI intolerance 06/08/2022 ODT and liquid forms only, cause n/v. Tolerates IV and oral pill formulations. Medications yilutif-Fk-iyvd-FA (VINATE ONE) 60 mg iron-1 mg per [...] CDT - 01/11/2024 6:48 PM CDT Emergency [facility] [address] [place] [phone] Alvino Christianson, PTerryC., P.A. Pharyngitis Acute (Primary Dx) Discharge Disposition: Home or Self Care 12/06/2023 6:50 PM CDT - 12/06/2023 7:30 PM CDT Emergency [facility] [address] [place] [phone] Benny Cuevas M.D. Migraine Headache (Primary Dx); 27 Weeks Gestation (HCC) Discharge Disposition: Home or Self Care 12/06/2023 6:30 PM CDT Office Visit Urgent Care, [facility], in [place], [place] [address] [place] [phone] Ana Laura Block P.A.-C., P.A. Procedure And [...] 0.6 oz pur e alcohol) [facility] Utilities Answer Date Recorded In the past 12 months has e [employer], or water [employer] threatened to shut off services in your [...] How often do you attend chur or episcopalian services? Never 07/14/2022 Do you belong to any clubs o r organizations such as confucianist groups, unions, fraternal or athletic groups, or [...] care, and heating? Somewhat hard 07/14/2022 [facility] of Occupat ional Health - Occupational [...] your living situation today? [facility] 08/17/2023 Education [...] M ICROBIOLOGY - GENERAL ORDERABLES Final Result [facility] [address] [place] [address], [place] [facility] [address] [place] [address] from Last 3 Months Insurance [employer] Care Teams Senior Program Planner Relationship Specialty Start Date End Date Elsewhere, Pcp PCP - General 08/30/21
--- OUTSIDE RECORDS SUMMARY | 2024-02-20 01:49 | XMS_ITS | Referral Summary ---
Author Organization [place] Address [address] [place] [address]. [place] [address] Care Team Providers Care Fundraising Officer Name Role Phone Shalonda Barrett MD Primary Care Provider + Encounters Date Type Department Care Team Description 01/28/2024 10:53 PM CDT - 01/30/2024 9:38 AM CDT Hospital Encounter [facility] [address] [place] [phone] Claus Herman MD Discharge Disposition: Home or Self Care 01/29/2024 Travel 01/28/[address] [facility] [address] [place] [phone] Claus Herman MD from Last 3 Months [...] CDT Oxygen Saturation 96% 06/19/2019 11:22 PM PIERCING SPECIALIST Inhaled Oxygen Concentration - - Weight 60.9 kg (134 lb 3.2 oz) 01/29/2024 7:35 A M CDT Height 162.6 cm (5' 4) 06/19/2019 8:51 PM PIERCING SPECIALIST Body Mass Index 23.04 06/19/2019 8:51 PM PIERCING SPECIALIST Plan of Treatment Not on file Procedures Procedure Name Priority Date/Time Associated Diagnosis Comments [facility] US COMPREHENSIVE SINGLE Routine 01/30/2024 8:25 AM [...] ? Study Date: ??01/30/2024 7:08am Pat. NO: ??[id number] ?Referring ??MD: ROSA BARBA Site: ? Infection Prevention Coordinator: Vicky Alvarado RDMS : ??2000 ?Age: ?? 23 ----- INDICATION ----- Inpatient. labor. METHOD ----- [facility] ANTEPARTUM inpatient exam. Transabdominal ultrasound [...] ?5 lb 15 ?oz EFW by ? [facility] ([id number]) Head / Face / Neck Biometry: Keyboard Instrument Repairer ?4.3 ? mm CM ? 6.3 ? [...] view. RVOT view. LVOT view. 3-vessel view. 4-wransk-vglamrd view. Situs. Aortic arch view. Bicaval view. [...] DONAHUE Study Date: 01/30/2024 7:08am Pat. NO: [id number] Referring MD: ROSA BARBA Site: Infection Prevention Coordinator: Vicky Alvarado RDMS : 2000 Age: 23 ----- INDICATION ----- Inpatient. labor. METHOD ----- [facility] ANTEPARTUM inpatient exam. Transabdominal ultrasound [...] EFW (lb,oz) 5 lb 15oz EFW by Hadlock([id number]) Head / Face / Neck Biometry: Keyboard Instrument Repairer 4.3mm CM 6.3mm Nasal bone 10.4mm ANATOMY ----- The following structures appear normal: Head / Neck Cranium. Head size. Head shape.Lateral ventricles. Choroid plexus. Midline falx. Cavum septi pellucidi.Cerebellum. Cisterna magna. Parenchyma. Thalami. Vermis. Neck. Face Lips. Profile. Nose. Maxilla.Mandible. Orbits. Lens. Heart / Thorax 4-chamber view. RVOT view. LVOT view.3-vessel view. 3-eojzlq-ywbhggh view. Situs. Aortic arch view. Bicavalview. Ductal [...] fluid volume appeared normal. Jessa Zacarias MD [facility] US ORDERABLE S * (ABNORMAL) CBC with platelets (01/29/2024 10:06 AM CDT) [facility] Signature WBC Count 9.9 4.0 - [...] LABORATORY [facility] Acute Care Lab [address] [place] [address], Room [address] * Adult Type and Screen (01/29/2024 12:56 AM CDT) ABO/RH(D) O POS 01/29/2024 12:34 AM CDT UR BLOOD BANK Antibody Screen Negative Negative 01/29/2024 12:34 AM CDT UR BLOOD BANK SPECIMEN EXPIRATION DATE [id number] 01/29/2024 12:34 AM CDT UR BLOOD BANK Blood STRUCTURE OF RIGHT UPPER LIMB / Unknown Venipuncture / Unknown 01/29/2024 12:56 AM CDT 01/29/2024 1:02 AM CDT Lev Alejandro MD LAB - BLOOD BANK RICHARD T ORDER UR BLOOD BANK [facility] Blood Components Lab [address] [place] [address], Room [address] * (ABNORMAL) UA with Microscopic reflex [...] 01/29/2024 1:05 AM CDT UR LABORATORY Specific [place] Urine 1.009 1.003 - 1.035 01/29/2024 1:05 [...] LAB - URINE ORDERABL ES UR LABORATORY [facility] Acute Care Lab [address] [facility] [address] [place] [address] * Chlamydia trachomatis/Neisseria gonorrhoeae by PCR (01/29/2024 12:38 AM CDT) Pathologist [facility] Chlamydia Trachomatis Negative Negative 01/29/2024 11:09 AM CDT [facility] Comment: Negative for C. trachomatis rRNA by client hr manager mediated amplification. A negative result by client hr manager mediated amplification does not preclude the presence of infection because results are dependent on proper and adequate collection, absence of inhibitors and sufficient rRNA to be detected. Neisseria gonorrhoeae Negative Negative 01/29/2024 11:09 AM CDT [facility] Comment:Negative for N. gono rrhoeae rRNA by client hr manager mediated amplification. A negative result by client hr manager mediated amplification does not preclude the presence of C. trachomatis infection because results are dependent on proper and adequate collection, absence of inhibitors and sufficient rRNA to be detected. Swab CERVIX UTERI STRUCTURE / Unknown Non-blood Collection / Unknown 01/29/2024 12:38 AM CDT 01/29/2024 12:45 AM CDT Lev Alejandro MD LAB - MICRO GENERAL ORDERABLES [facility] Inf. Diseases Diag. Lab [address] [facility], [address] [place] [phone] * (ABNORMAL) Wet prep (01/29/2024 12:38 AM CDT) Pathologist [facility] Trichomonas Absent Absent JET 01/29/2024 1:01 AM [...] LAB - MICRO GENERAL ORDERABLES UR LABORATORY [facility] Acute Care Lab [address] [facility], [address] [place] [address], [facility] * Group B strep PCR (01/29/2024 [...] LABORATORY - 01/29/2024 8:46 PM CDT The CepCity Gradeid Xpert GBS LB Assay, performed on the Studentbox?? [employer], is a qualitative in vitro diagnostic [...] settings. The device is not intended for ipmcq-bl-wcnu use. Lev Alejandro MD LAB - MICRO GENERAL ORDERABLES [facility] Inf. Diseases Diag. Lab [address] [facility], [address] [place] [address], [facility] * HIV-1 Antibody (External Result) (07/27/2023 12:27 AM CDT) HIV 1&2 Antibody (External) Negative Nonreactive [facility] 07/27/2023 12:2 7 AM CDT Patient Reported LAB - HIM EXTERNAL R ESULT [address] [address], [facility] [phone] from Last 3 Months or Most Recently Relevant to Health Maintenance Advance Directives For more information, please contact: [phone] * Full Code (Latest Code Status on File) Date Activated Date Inactivated Comments 01/29/2024 12:33 AM 01/30/2024 11:44 AM All basic and advanced life-sustaining interventions are performed as appropriate Question Answer Comments Code status determined by: Discussion with camilo nt/ legal decision maker Care Teams Fundraising Officer Relationship Specialty Start Date End Date Shalonda Barrett MD [facility] [address] [place] [address] PCP - General Family Medicine 01/29/24
--- OUTSIDE RECORDS SUMMARY | 2024-02-20 01:49 | XMS_ITS ---
Author Organization [place] Address [address] [place] [address] Care Team Providers Care Shank Scourer Name Role Phone Shalonda Barrett MD Primary Care Provider + Transitional Care Management Status:Closed (Closed) Start date:01/31/2024 Enrollment date:01/31/2024 End date:02/14/2024 Close reason:Goals met Continued Care and Services Coordination
--- OUTSIDE RECORDS SUMMARY | 2024-02-20 01:49 | XMS_ITS | Encounter Summary ---
Author Organization [facility] Address [address] [place] [address]. [place] [address] Care Team Providers Care Sheet Metal Lay Out Worker Name Role Phone Shalonda Barrett MD Primary [...] on filedocumented in this encounter Care Teams Sheet Metal Lay Out Worker Relationship Specialty Start Date End Date Shalonda Barrett MD [facility] & [address] [address] PCP - General Family Medicine 01/29/24 documented as of this encounter
--- OUTSIDE RECORDS SUMMARY | 2024-02-20 01:49 | XMS_ITS | Encounter Summary ---
Author Organization [place] Address [facility] [address] Care Team Providers Care Driller'S Offsider Name Role Phone No Ref-Primary, Physician Primary Care Provider Shalonda Barrett MD Primary Care Provider + Reason for Visit * Reason Comments Labor * Auth/Cert (Routine) Specialty Diagnoses / Procedures Referred By Contac t Referred To Contact stock wetter Diagnoses Maternity*TONYA: * Labor uterine contractions Ur [address] [place] [address] Referral ID Status Reason Start Date Expiration Date Visits Re quested Visits Authorized [id number] 1 1 Encounter Details Date Type Department Care Team (Latest Contact Info) Description 01/28/2024 10:53 PM CDT - 01/30/2024 9:38 AM CDT Hospital Encounter [facility] [address] [place] [address] Claus Herman MD [address] [place] [address] Discharge Disposition: Home or Self [...] in an abandoned building, in an overnight mcfp, or couch-surfing.) Yes 01/28/2024 Are you worried [...] Body Mass Index 23.04 06/19/2019 8:51 PM VISITOR SERVICES REPRESENTATIVE documented in this encounter Discharge Summaries * Jessa Zacarias MD - 01/30/2024 9:28 AM CDT [facility] Discharge Summary Sid Garcia Age: [age] year [...] presents as a transfer of care from [facility] with concerns for labor. She started [...] swelling, generalized unwell feeling Jessa Zacarias MD Paper Counter PGY-3 01/30/24 9:31 AM Associated attestation - [...] Where can you learn more? Go to https://www.TravelerCar.net/patiented Enter N531 in the search box to learn more about Learning About When to Call Your Doctor During (After 20 Weeks). Current as of: November 15, 2022 Content Version: 14.1 ?? [employer]. Care instructions adapted under license by your healthcare professional. If you have questions about a medical condition or this instruction, always ask your healthcare professional. [employer], [employer] disclaims any warranty or liability for your [...] bpm, mod variability, accelerations present, no decelerations Soquel: 0 contractions/10 minutes Imaging: [facility] US COMPREHENSIVE (01/30/24) IMPRESSION 1. Thomas [...] concern for labor as a ROBER form [place]. Her has been notable for: - History of delivery (failure to progress, second stage) - H/o hemorrhage requiring blood transfusion, Bakri balloon - Anemia - GCT elevated, normal GTT - Factor V Leiden heterozygote - Rubella equivocal - Migraines # C/f Labor Presented with painful uterine contractions to [place]. Workup at outside hospital concerning for possible increasing cervical effacement so transfer was recommended for higher level NICU cares. At presentation to [facility], infectious workup unremarkable including negative wet [...] and discussed with Dr. Claus Zacarias MD Paper Counter PGY-3 01/30/24 8:42 AM Associated attestation - Claus Herman MD - 01/30/2024 11:30 AM CDT Physician Attestation I saw this patient with the resident and agree with the resident/fellow's findings and plan of careas documented in the note. Weems findings: Patient is a 23 YO at 34w6d who presented as transport from [facility] 01/28/2024 for concerns of threatened labor in the setting of late period and history of LTCS desiring TOLAC. Since admission the cervix remains unchanged and the patient is noting less contractions today. She has taken no further nifedipine. The fetus is reassuring on FHR monitoring. US today is reassuring and normal. The patient is comfortable with discharge to follow up with [facility] OB team. 25 MINUTES SPENT BY ME [...] bpm, mod variability, accelerations present, no decelerations Soquel: 2 contractions/10 minutes Assessment/Plan Abrial Douglas Garcia is a 23 year old @ 34w5d by LMP c/w 8w1d US, admitted with concern for labor as a ROBER form [place]. Her has been notable for: - History of delivery (failure to progress, second stage) - H/o hemorrhage requiring blood transfusion, Bakri balloon - Anemia - GCT elevated, normal GTT - Factor V Leiden heterozygote - Rubella equivocal - Migraines # C/f Labor Presented with painful uterine contractions to [place]. Workup at outside hospital concerning for possible increasing cervical effacement so transfer was recommended for higher level NICU cares. At presentation to [facility], infectious workup unremarkable including negative wet [...] and discussed with Dr. Claus Zacarias MD Paper Counter PGY-3 01/29/24 11:02 AM Associated attestation - Claus Hemran MD - 01/29/2024 11:39 AM CDT Physician Attestation I saw this patient with the resident and agree with the resident/fellow's findings and plan of careas documented in the note. Weems findings: Patient is a 23 YO at 34w5d who presented as transport from [facility] last evening for concerns of threatened [...] OK for OP management and delivery at [place] after 35 weeks. Likely discontinue tomorrow am. [...] on exam, still posterior. Lev Alejandro MD ON SITE WASTEWATER SYSTEMS TECHNICIAN PGY-3 01/29/2024 7:15 AM documented in this encounter H&P Notes * Lev Alejandro MD - 01/28/2024 11:34 PM CDT Images from the original note were not included. Antepartum History and Physical January 29, 2024 Sid Garcia [id number] HPI Sid Garcia is a 23 year old at 34w4d by LMP c/w 8w1d US who presents as a transfer ofcare from [facility] with concerns for labor. She started to notice back pain and frequent abdominal tightening this morning (01/27). She thought it was [place] [facility] contractions so continued with her planned [...] Physical Activity: Sufficiently Active (08/17/2023) Received from [facility] Exercise Vital Sign Days of Exercise per Week: 5 days Minutes of Exercise per Session: 60 min Stress: No Stress Concern Present (07/14/2022) Received from [facility] [employer] [place] [employer] - Occupational Stress Questionnaire Feeling of Stress : Only a little Social Connections: Socially Isolated (07/14/2022) Received from [facility] Social Connection and Isolation Panel [NHANES] Frequency of Communication with Friends and Family: More than three times a week Frequency of Social Gatherings with Friends and Family: Once a week Attends Taoist Services: Never Active Member of Clubs or [...] 150 bpm, moderate variability, accelerations present, nodecelerations Soquel: 3-4 contractions in 10 minutes Impression: Category [...] Ketones Urine 100 (A) Negative mg/dL Specific [place] Urine 1.009 1.003 - 1.035 Blood Urine [...] Abnormality Status --------- ------ Adult Type and Screen[[id number]] Final result Please view results for these tests on the individual orders. Adult Type and Screen Result Value Ref Range ABO/RH(D) O POS Antibody Screen Negative Negative SPECIMEN EXPIRATION DATE [id number] Imaging Not available in system. Assessment/Plan 23 year old at 34w5d by LMP consistent with 8w1d US, transferred to [facility] for NICU cares in the setting [...] course - BMZ: s/p first dose at [place] 01/27 at 2108 - Magnesium not indicated [...] supervision of Dr. Herman. Lev Alejandro MD ON SITE WASTEWATER SYSTEMS TECHNICIAN PGY-3 01/29/2024 4:34 AM Associated attestation - Claus Herman MD - 01/29/2024 11:33 AM CDT Physician Attestation I did not see the patient on this date. [facility] [...] PM CDT Patient arrived via ambulance from [facility] at 2255 and admitted to room [...] Procedure Name Priority Date/Time Associated Diagnosis Comments [facility] US COMPREHENSIVE SINGLE Routine 01/30/2024 8:25 [...] ? Study Date: ??01/30/2024 7:08am Pat. NO: ??[id number] ?Referring ??MD: ROSA BARBA Site: ? Bender Machine Operator: Vicky Alvarado RDMS : ??2000 ?Age: ?? 23 ----- INDICATION ----- Inpatient. labor. METHOD ----- [facility] ANTEPARTUM inpatient exam. Transabdominal ultrasound examination. [...] lb 15 ?oz EFW by ? Hadlock ([id number]) Head / Face / Neck Biometry: Final Cigar And Box Examiner ?4.3 ? mm CM ? 6.3 ? [...] view. RVOT view. LVOT view. 3-vessel view. 4-galzbd-wzgzxkh view. Situs. Aortic arch view. Bicaval view. [...] GARCIA Study Date: 01/30/2024 7:08am Pat. NO: [id number] Referring MD: ROSA BARBA Site: Bender Machine Operator: Vicky Alvarado RDMS : 2000 Age: 23 ----- INDICATION ----- Inpatient. labor. METHOD ----- [facility] ANTEPARTUM inpatient exam. Transabdominal ultrasound examination.View: [...] EFW (lb,oz) 5 lb 15oz EFW by Hadlock([id number]) Head / Face / Neck Biometry: Final Cigar And Box Examiner 4.3mm CM 6.3mm Nasal bone 10.4mm ANATOMY ----- The following structures appear normal: Head / Neck Cranium. Head size. Head shape.Lateral ventricles. Choroid plexus. Midline falx. Cavum septi pellucidi.Cerebellum. Cisterna magna. Parenchyma. Thalami. Vermis. Neck. Face Lips. Profile. Nose. Maxilla.Mandible. Orbits. Lens. Heart / Thorax 4-chamber view. RVOT view. LVOT view.3-vessel view. 2-efxqfq-qykvhpi view. Situs. Aortic arch view. Bicavalview. Ductal [...] fluid volume appeared normal. Jessa Zacarias MD [facility] US ORDERABLE S * (ABNORMAL) CBC with platelets (01/29/2024 10:06 AM CDT) [facility] Signature WBC Count 9.9 4.0 - [...] LABORATORY [facility] Acute Care Lab [facility], [address] [place] [phone] * Adult Type and Screen (01/29/2024 12:56 AM CDT) ABO/RH(D) O POS 01/29/2024 12:34 AM CDT UR BLOOD BANK Antibody Screen Negative Negative 01/29/2024 12:34 AM CDT UR BLOOD BANK SPECIMEN EXPIRATION DATE [id number] 01/29/2024 12:34 AM CDT UR BLOOD BANK Blood STRUCTURE OF RIGHT UPPER LIMB / Unknown Venipuncture / Unknown 01/29/2024 12:56 AM CDT 01/29/2024 1:02 AM CDT Lev Alejandro MD LAB - BLOOD BANK RICHARD T ORDER Performing Organization Address [facility]/ZIP Co de Phone Number UR BLOOD BANK [facility] Blood Components Lab [address] [place] [address], Room [place] [phone] * (ABNORMAL) UA with Microscopic [...] 01/29/2024 1:05 AM CDT UR LABORATORY Specific [place] Urine 1.009 1.003 - 1.035 01/29/2024 1:05 [...] [facility] Acute Care Lab [address] [facility], [address] [place] [address], [facility] * Chlamydia trachomatis/Neisseria gonorrhoeae by PCR (01/29/2024 12:38 AM CDT) Chlamydia Trachomatis Negative Negative 01/29/2024 11:09 AM CDT [facility] Comment: Negative for C. trachomatis rRNA by engineering production liaison mediated amplification. A negative result by engineering production liaison mediated amplification does not preclude the presence of infection because results are dependent on proper and adequate collection, absence of inhibitors and sufficient rRNA to be detected. Neisseria gonorrhoeae Negative Negative 01/29/2024 11:09 AM CDT [facility] Comment:Negative for N. gono rrhoeae rRNA by engineering production liaison mediated amplification. A negative result by engineering production liaison mediated amplification does not preclude the presence of C. trachomatis infection because results are dependent on proper and adequate collection, absence of inhibitors and sufficient rRNA to be detected. Swab CERVIX UTERI STRUCTURE / Unknown Non-blood Collection / Unknown 01/29/2024 12:38 AM CDT 01/29/2024 12:45 AM CDT Lev Alejandro MD LAB - MICRO GENERAL ORDERABLES [facility] Inf. Diseases Diag. Lab [address] [facility], [address] [place] [address], [facility] * (ABNORMAL) Wet prep (01/29/2024 12:38 [...] LAB - MICRO GENERAL ORDERABLES UR LABORATORY [facility] Acute Care Lab [address] [facility], [address] [place] [address], [facility] * Group B strep PCR [...] LABORATORY - 01/29/2024 8:46 PM CDT The Swipesense Xpert GBS LB Assay, performed on the [employer]Fish?? [employer], is a qualitative in vitro diagnostic [...] settings. The device is not intended for nswte-ya-zssh use. Lev Alejandro MD LAB - MICRO GENERAL ORDERABLES [facility] Inf. Diseases Diag. Lab [address] [facility], [address] [place] [address] * HIV-1 Antibody (External Result) (07/27/2023 12:27 AM CDT) HIV 1&2 Antibody (External) Negative Nonreactive [facility] 07/27/2023 12:2 7 AM CDT Patient Reported LAB - HIM EXTERNAL R ESULT [facility] [address] [place], [place] [phone] [place] [address] * Hepatitis B Surface Antigen (External Result) (07/27/2023 12:27 AM CDT) Hepatitis B Surface Antigen (External) Negative [facility] 07/27/2023 12:2 7 AM CDT Patient Reported LAB - HIM EXTERNAL R ESULT [facility] [address] [place] [address], [facility] [phone] * Rubella Antibody IgG (External Result) (07/27/2023 12:27 AM CDT) Rubella Antibody IgG (External) Immune Nonreactive [facility] 07/27/2023 12:2 7 AM CDT Patient Reported LAB - HIM EXTERNAL R ESULT Performing Organization Address City/[facility]/ZIP Co de Phone Number [facility] [address] [place] [address], [facility] [phone] documented in this encounter Visit Diagnoses Diagnosis [...] not exceed 2 doses in 24 hours. 1741 ($Given - Provider: Ledy Allred RN) Linked [...] Antepartum documented in this encounter Care Teams Driller'S Offsider Relationship Specialty Start Date End Date No Ref-Primary, Physician PCP - General 06/19/19 01/28/24 Shalonda Barrett MD [facility] [address] [place] [address] PCP - General Family Medicine 01/29/24 documented as of this encounter
--- OUTSIDE RECORDS SUMMARY | 2024-02-20 01:49 | XMS_ITS | Clinical Summary ---
Author Organization [place] Address [address] [place] [address]. [place] [address] Care Team Providers Care Motor Assembly Supervisor Name Role Phone Shalonda Barrett MD [...] - 01/30/2024 9:38 AM CDT Hospital Encounter [facility] [address] [facility] [place] [address] Claus Herman MD Discharge Disposition: Home or Self Care 01/28/2024 Hospital Encounter [facility] Marie Is[facility] Birthplace [address] [place] [address] Claus Herman MD from Last 3 [...] CDT Oxygen Saturation 96% 06/19/2019 11:22 PM THERMAL SPRAY OPERATOR Inhaled Oxygen Concentration - - Weight 60.9 kg (134 lb 3.2 oz) 01/29/2024 7:35 A M CDT Height 162.6 cm (5' 4) 06/19/2019 8:51 PM THERMAL SPRAY OPERATOR Body Mass Index 23.04 06/19/2019 8:51 PM THERMAL SPRAY OPERATOR Plan of Treatment Health Maintenance Due Date [...] Procedure Name Priority Date/Time Associated Diagnosis Comments [facility] US COMPREHENSIVE SINGLE Routine 01/30/2024 8:25 [...] ? Study Date: ??01/30/2024 7:08am Pat. NO: ??[id number] ?Referring ??MD: ROSA BARBA Site: ? Senior Database Programmer: Vicky Alvarado RDMS : ??2000 ?Age: ?? 23 ----- INDICATION ----- Inpatient. labor. METHOD ----- [facility] inpatient exam. Transabdominal ultrasound examination. [...] lb 15 ?oz EFW by ? Hadlock ([id number]) Head / Face / Neck Biometry: Hand Stoner ?4.3 ? mm CM ? 6.3 ? [...] view. RVOT view. LVOT view. 3-vessel view. 1-cgwstn-nbcarmd view. Situs. Aortic arch view. Bicaval view. [...] GARCIA Study Date: 01/30/2024 7:08am Pat. NO: [id number] Referring MD: ROSA BARBA Site: Senior Database Programmer: Vicky Alvarado RDMS : 2000 Age: 23 ----- INDICATION ----- Inpatient. labor. METHOD ----- [facility] inpatient exam. Transabdominal ultrasound examination.View: [...] EFW (lb,oz) 5 lb 15oz EFW by Hadlock([id number]) Head / Face / Neck Biometry: Hand Stoner 4.3mm CM 6.3mm Nasal bone 10.4mm ANATOMY ----- The following structures appear normal: Head / Neck Cranium. Head size. Head shape.Lateral ventricles. Choroid plexus. Midline falx. Cavum septi pellucidi.Cerebellum. Cisterna magna. Parenchyma. Thalami. Vermis. Neck. Face Lips. Profile. Nose. Maxilla.Mandible. Orbits. Lens. Heart / Thorax 4-chamber view. RVOT view. LVOT view.3-vessel view. 3-jvpvui-jltsrof view. Situs. Aortic arch view. Bicavalview. Ductal [...] appeared normal. Jessa Zacarias MD [facility] US ORDERABLE S * (ABNORMAL) CBC with platelets (01/29/2024 10:06 AM CDT) [facility] WBC Count 9.9 4.0 - 11.0 10e3/uL [...] LAB - BLOOD ORDERABL ES UR LABORATORY [facility] Acute Care Lab [address] [place] [address], Room [address] * Adult Type and Screen (01/29/2024 12:56 AM CDT) ABO/RH(D) O POS 01/29/2024 12:34 AM CDT UR BLOOD BANK Antibody Screen Negative Negative 01/29/2024 12:34 AM CDT UR BLOOD BANK SPECIMEN EXPIRATION DATE [id number] 01/29/2024 12:34 AM CDT UR BLOOD BANK Blood STRUCTURE OF RIGHT UPPER LIMB / Unknown Venipuncture / Unknown 01/29/2024 12:56 AM CDT 01/29/2024 1:02 AM CDT Lev Alejandro MD LAB - BLOOD BANK RICHARD T ORDER Performing Organization Address City[facility]/ZIP Co de Phone Number UR BLOOD BANK [facility] Blood Components Lab [address] [place] [address], Room [address] * (ABNORMAL) UA with Microscopic reflex [...] 01/29/2024 1:05 AM CDT UR LABORATORY Specific [place] Urine 1.009 1.003 - 1.035 01/29/2024 1:05 [...] LAB - URINE ORDERABL ES UR LABORATORY [facility] Acute Care Lab [address] [facility], [address] [place] [address] * Chlamydia trachomatis/Neisseria gonorrhoeae by PCR (01/29/2024 12:38 AM CDT) Pathologist [facility] Chlamydia Trachomatis Negative Negative 01/29/2024 11:09 AM CDT [facility] Comment: Negative for C. trachomatis rRNA by client project coordinator mediated amplification. A negative result by client project coordinator mediated amplification does not preclude the presence of infection because results are dependent on proper and adequate collection, absence of inhibitors and sufficient rRNA to be detected. Neisseria gonorrhoeae Negative Negative 01/29/2024 11:09 AM CDT [facility] Comment:Negative for N. gono rrhoeae rRNA by client project coordinator mediated amplification. A negative result by client project coordinator mediated amplification does not preclude the presence of C. trachomatis infection because results are dependent on proper and adequate collection, absence of inhibitors and sufficient rRNA to be detected. Swab CERVIX UTERI STRUCTURE / Unknown Non-blood Collection / Unknown 01/29/2024 12:38 AM CDT 01/29/2024 12:45 AM CDT Lev Alejandro MD LAB - MICRO GENERAL ORDERABLES [facility] Inf. Diseases Diag. Lab [address] [facility], [address] [place] [address] * (ABNORMAL) Wet prep (01/29/2024 12:38 [...] LAB - MICRO GENERAL ORDERABLES UR LABORATORY [facility] Acute Care Lab [address] [facility], [address] [place] [address] * Group B strep PCR (01/29/2024 [...] Xpert GBS LB Assay, performed on the Nonpareil?? Instrument Systems, is a qualitative in vitro [...] settings. The device is not intended for dpjag-bp-jrlb use. Lev Alejandro MD LAB - MICRO GENERAL ORDERABLES Performing Organization Address [facility]/ZIP Co de Phone Number [facility] Inf. Diseases Diag. Lab [address] [facility], [address] [place] [address] * HIV-1 Antibody (External Result) (07/27/2023 12:27 AM CDT) HIV 1&2 Antibody (External) Negative Nonreactive [facility] 07/27/2023 12:2 7 AM CDT Patient Reported LAB - HIM EXTERNAL R ESULT Performing Organization Address City[facility]/ZIP Co de Phone Number [facility] [address] [place], [place] [address] [phone] from Last 3 Months or Most Recently Relevant to Health Maintenance Advance Directives For more information, please contact: [phone] * Full Code (Latest Code Status on File) Date Activated Date Inactivated Comments 01/29/2024 12:33 AM 01/30/2024 11:44 AM All basic and advanced life-sustaining interventions are performed as appropriate Question Answer Comments Code status determined by: Discussion with patie nt/ legal decision maker Care Teams Motor Assembly Supervisor Relationship Specialty Start Date End Date Shalonda Barrett MD [facility] [address] [place] [address] PCP - General Family Medicine 01/29/24
--- OUTSIDE RECORDS SUMMARY | 2024-02-20 01:49 | XMS_ITS | Encounter Summary ---
Author Organization [place] Address [facility] [place] [address] Care Team Providers Care Bleach Maker Name Role Phone No Ref-Primary, Physician Primary Care Provider Shalonda Barrett MD Primary Care Provider + Reason for Visit * Auth/Cert (Routine) Specialty Diagnoses / Procedures Referred By Berkley lubin Referred To Contact roll plugger machine operator Diagnoses Maternity*TONYA: * Labor uterine contractions Ur [address] [place] [address] Referral ID Status Reason Start Date Expiration Date Visits Re quested Visits Authorized [id number] 1 1 Encounter Details Date Type Department Care Team (Late st Contact Info) Description 01/28/2024 Hospital Encounter [facility] [address] [place] [address] Claus Herman MD [address] [facility] [address] [place] [address] Social History Tobacco Use Types [...] in an abandoned building, in an overnight long-term, or couch-surfing.) Yes 01/28/2024 Are you worried [...] on filedocumented in this encounter Care Teams Bleach Maker Relationship Specialty Start Date End Date No Ref-Primary, Physician PCP - General 06/19/19 01/28/24 Shalonda Barrett MD [address] [address] PCP - General Family Medicine 01/29/24 documented as of this encounter
--- OUTSIDE RECORDS SUMMARY | 2024-02-20 01:50 | XMS_ITS | Referral Summary ---
Author Organization [facility] Address [address] [place] [address] Care Team Providers Care Roller Presser Operator Name Role Phone Elsewhere, Pcp Primary Care Provider Unavailabl e Source Comments Patient records contain information from all sites at [facility]. For routine questions regarding patient records, call [phone] during business hours, M-F 8:00 AM - 5:00 PM Central Time. Record requests for emergency care only can be directed to [phone] at any time.[facility] Encounters Date Type Department Care Team Description 01/11/2024 5:07 PM CDT - 01/11/2024 6:48 PM CDT Emergency [facility] [address] [place] [phone] Alvino Christianson P.A.-C., P.A. Pharyngitis Acute (Primary Dx) Discharge Disposition: Home or Self Care 12/06/2023 6:50 PM CDT - 12/06/2023 7:30 PM CDT Emergency [facility] [address] [place] [phone] Benny Cuevas M.D. Migraine Headache (Primary Dx); 27 Weeks Gestation (HCC) Discharge Disposition: Home or Self Care 12/06/2023 6:30 PM CDT Office Visit Urgent Care, [facility], in [place], [place] [address] [place] [phone] Ana Laura Block P.A.-C., P.A. Procedure And Treatment Not Carried Out Due To Patient Leaving Prior To Being Seen By Health Care Provider (Primary Dx) Discharge Disposition: Home or Self Care from Last 3 Months Allergies Active Allergy Reactions Criticality Noted Date Comments Ondansetron GI intolerance 06/08/2022 ODT and liquid forms only, cause n/v. Tolerates IV and oral pill formulations. Medications bzulhtx-[id number]-[id number]-FA (VINATE ONE) 60 mg iron-1 mg per [...] In the past 12 months has e [employer], [employer], or water [employer] threatened to shut off services in your [...] How often do you attend chur or alevism services? Never 07/14/2022 Do you [...] medical care, and heating? Somewhat hard 07/14/2022 [facility] of Occupat ional [...] M ICROBIOLOGY - GENERAL ORDERABLES Final Result [facility] [address] [place] [address], [place] NPRG [facility] [address] [place] [address] from Last 3 Months Insurance [employer] Care Teams Roller Presser Operator Relationship Specialty Start Date End Date Elsewhere, Pcp PCP - General 08/30/21
--- OUTSIDE RECORDS SUMMARY | 2024-02-20 01:50 | XMS_ITS | Encounter Summary ---
Author Organization [facility] Address [address] [place] [address] Care Team Providers Care Associate Professor Of Media Arts Name Role Phone Elsewhere, Pcp Primary Care [...] CDT - 12/06/2023 7:30 PM CDT Emergency [facility] [address] [place] [phone] Benny Cuevas M.D. [address] [place] [address] Migraine Headache (Primary Dx); 27 Weeks Gestation (HCC) Discharge Disposition: Home or Self Care Social History Tobacco Use Types Packs/Day Years Used Date Smoking Tobacco: Never Passive Smoke Exposure: Never Smokeless Tobacco: Never Alcohol Use Standard Drinks/Week Comments No 0 (1 standard drink = 0.6 oz pur e alcohol) [facility] Utilities Answer Date Recorded In the past [...] How often do you attend chur or catholic services? Never 07/14/2022 Do you [...] medical care, and heating? Somewhat hard 07/14/2022 [facility] [place] of Occupat ional Health - Occupational Stress [...] you are . Follow up with your pharmaceutical detailer if your headache isn't improving by tomorrow. * Attachments The following attachments cannot be sent through Care Everywhere. * Migraine Headache ([place]) documented in this encounter Medications at Time of Discharge docosahexaenoic acid 200 mg capsule Take by mouth. 07/27/2023 ferrous sulfate (IRON ORAL) Take by mouth. ondansetron ODT (ZOFRAN-ODT) 4 mg disintegrating tablet DISSOLVE ONE TABLET BY MOUTH EVERY 8 HOURS NEEDED FOR NAUSEA AND VOMITING 07/27/2023 rntssvt-Bz-cixv-FA (VINATE ONE) 60 mg iron-1 mg per [...] 1. Migraine Headache 2. 27 Weeks Gestation ([facility]) ED Disposition Discharge ED Prescriptions Medication [...] corrected in real-time. Please message me via Similar Pages In Basket if you note any areas [...] R.N.) documented in this encounter Care Teams Associate Professor Of Media Arts Relationship Specialty Start Date End Date Elsewhere, Pcp PCP - General 08/30/21 documented as of this encounter
--- OUTSIDE RECORDS SUMMARY | 2024-02-20 01:50 | XMS_ITS | Clinical Summary ---
Author Organization [facility] Address [place], [place] [address] Care Team Providers Care Event Promotions Coordinator Name Role Phone [facility], [facility] Primary Care Pr ovider Allergies No [...] Relation Name Comments Bipolar disorder Brother 1 [place] Thyroid Disease Brother 1 [place] Good Health Brother 2 Desai Good Health [...] disease Relation Name Status Comments Brother 1 [place] Alive Brother 2 [place] Alive Father Maternal [...] Comments Blood Pressure 118/72 06/30/2022 2:37 PM TRAY SETTER Pulse 83 06/30/2022 2:37 PM TRAY SETTER Temperature 36.9 ??C (98.4 ??F) 12/25/2021 4:00 PM CD T Respiratory Rate 16 12/25/2021 4:00 PM CDT Oxygen Saturation 98% 12/25/2021 4:00 PM CDT Inhaled Oxygen Concentration - - Weight 52.2 kg (115 lb) 06/30/2022 2:37 PM TRAY SETTER Height 162.6 cm (5' 4) 12/25/2021 4:00 [...] Procedure Name Priority Date/Time Associated Diagnosis Comments BANQUET PILOT THIN PREP PAP SCREEN IMAGED Routine 03/24/2023 12:00 PM TRAY SETTER from Last 3 Months or Most Recently Relevant to Health Maintenance Results * BANQUET PILOT THIN PREP PAP SCREEN IMAGED (03/24/2023 12:00 PM TRAY SETTER) Case Report Gynecologic Cytology Report ? Case: [id number] ? Authorizing Provider: ??Harmony Colon ?Collected: ? 03/24/2023 1200 ? MD Lennie ? Ordering Location: ? [facility] ?Received: ?03/28/2023 1655 ? First Screen: ?Nino Dimas ? Specimen: ?BANQUET PILOT ThinPrep Vial Screening, Cervical ? 04/07/2023 1:26 PM TRAY SETTER [facility] INTERPRETATION/ RESULT NEGATIVE FOR INTRAEPITHELIAL LESION OR MALIGNANCY (NIL) (none) 04/07/2023 1:26 PM TRAY SETTER [facility] IMEN ADEQUACY Satisfactory for evaluation Endocervical component present 04/07/2023 1:26 PM TRAY SETTER [facility] HPV REQUEST HPV not requested 2022 1:26 PM TRAY SETTER [facility] Date of LMP 03/05/2023 04/07/2023 1:26 PM TRAY SETTER [facility] Abnormal Pap or Eldridge Bx in last 5 years No 04/07/2023 1:26 PM TRAY SETTER [facility] Menstrual Status Irregular Periods 04/07/2023 1:26 PM TRAY SETTER [facility] Eldridge Bx Done Today No 04/07/2023 1:26 PM TRAY SETTER [facility] Additional Information 04/07/2023 1:26 PM TRAY SETTER [facility] Comment: Interpreted at [facility] - [address] [place] [id number] Automated Review Successful 04/07/2023 1:26 PM TRAY SETTER [facility] Comment:Specimen processed s uccessfully by automated energy broker device, ThinPrep Imaging System, [employer] Note The pap test is a screening technique, not a diagnostic procedure. It is used primarily to screen for squamous cancers and precursor lesions. Published studies have shown that it is subject to both false negative and false positive results. The pap test should not be used as the sole means to diagnose or exclude pre-malignant and malignant lesions. 04/07/2023 1:26 PM TRAY SETTER [facility] Other (Cervical) 03/24/2023 12:00 PM TRAY SETTER 03/28/2023 4:55 PM TRAY SETTER Harmony Cooln MD PATHOLOGY/ CYTOLOGY [facility] [employer] [facility] [address] [place] [address], [place] from Last 3 Months or Most Recently Relevant to Health Maintenance Care Teams Event Promotions Coordinator Relationship Specialty Start Date End Date Clinic, [facility] [address] [place] [address] PCP - General 12/19/23
--- OUTSIDE RECORDS SUMMARY | 2024-02-20 01:50 | XMS_ITS | Encounter Summary ---
Author Organization [facility] Address [address] [place] [address] Care Team Providers Care Special Forces Specialist Name Role Phone Elsewhere, Pcp Primary Care Provider Unavailabl e Encounter Details Date Type Department Care Team (Late st Contact Info) Description 12/06/2023 6:30 PM CDT Office Visit Urgent Care, [facility], in [place], [place] [address] [place] [address] Ana Laura Block, PDuc-Amena., P.A. [address] [place] [phone] Procedure And Treatment Not Carried Out Due To Patient Leaving Prior To Being Seen By Health Care Provider (Primary Dx) Discharge Disposition: Home or Self Care Social History Tobacco Use Types Packs/Day Years Used Date Smoking Tobacco: Never Passive Smoke Exposure: Never Smokeless Tobacco: Never Alcohol Use Standard Drinks/Week Comments No 0 (1 standard drink = 0.6 oz pur e alcohol) [facility] Utilities Answer Date Recorded In the past 12 months has [employer], gas, oil, or water [employer] threatened to shut off services in your [...] often do you attend chur ch or zoroastrian services? Never 07/14/2022 Do you belong to [...] medical care, and heating? Somewhat hard 07/14/2022 [facility] [place] of Occupat ional Health - Occupational Stress [...] your living situation today? I have a [facility] place to live 08/17/2023 Education Answer [...] Primary documented in this encounter Care Teams Special Forces Specialist Relationship Specialty Start Date End Date Elsewhere, Pcp PCP - General 08/30/21 documented as of this encounter
--- OUTSIDE RECORDS SUMMARY | 2024-02-20 01:50 | XMS_ITS ---
Author Organization [facility] Address [address] [place] [address] Care Team Providers Care Meat Cooler Name Role Phone Unavailable Unavailable Unavailable Surgery Details Not on file Complications Check Surgery Details section. Procedure Estimated Blood Loss Check Surgery Details section. Procedure Findings Check Surgery Details section. Procedure Specimens Taken Check Surgery Details section.
--- OUTSIDE RECORDS SUMMARY | 2024-02-20 01:50 | XMS_ITS | Encounter Summary ---
Author Organization [facility] Address [address] [place] [address] Care Team Providers Care Reproductive Surgeon Name Role Phone Elsewhere, Pcp Primary Care Provider Unavailabl e Reason for Visit * Reason Comments Sore Throat Pt presents w/throat pain onset last night, denies cough and fever. Encounter Details Date Type Department Care Team (Late st Contact Info) Description 01/11/2024 5:07 PM CDT - 01/11/2024 6:48 PM CDT Emergency [facility] [address] [place] [address] Alvino Christianson, PDedraA.-Amena., P.A. [address] [phone] Pharyngitis Acute (Primary Dx) Discharge Disposition: Home or Self Care Social History Tobacco Use Types Packs/Day Years Used Date Smoking Tobacco: Never Passive Smoke Exposure: Never Smokeless Tobacco: Never Alcohol Use Standard Drinks/Week Comments No 0 (1 standard drink = 0.6 oz pur e alcohol) [facility] Utilities Answer Date Recorded In the [...] often do you attend chur ch or cheondoism services? Never 07/14/2022 Do you [...] medical care, and heating? Somewhat hard 07/14/2022 [facility] [place] of Occupat ional Health - Occupational Stress [...] your living situation today? I have a [facility] place to live 08/17/2023 Education [...] HOURS NEEDED FOR NAUSEA AND VOMITING 07/27/2023 xeairel-Jp-nmhj-FA (VINATE ONE) 60 mg iron-1 mg per [...] M ICROBIOLOGY - GENERAL ORDERABLES Final Result [facility] [address] [place] [address], [facility] NPRG [facility] [address] [place] [address] documented in this encounter Visit Diagnoses Diagnosis Pharyngitis Acute- Primary documented in this encounter Care Teams Reproductive Surgeon Relationship Specialty Start Date End Date Elsewhere, Pcp PCP - General 08/30/21 documented as of this encounter
[2024-02-20] MEDS: LACTATED RINGERS 1000 ML 1,000 ML 500 ML IV (02:17)
[2024-02-20 02:25] LABS: Basophils Percent Auto 0.1 % (0.0-3.0); Eosinophils Percent Auto 0.2 % (0.0-7.0); Hematocrit 35.4 % (33.0-51.0); Hemoglobin* 11.9 gm/dL (12.0-16.0); Immature Granulocytes Pct Auto 0.5 %; Lymphocytes Percent Auto 11.9 % (20-44); Mean Corpuscular HGB Conc 34 gm/dL (32-36); Mean Corpuscular Hemoglobin 31 pg (26-34); Mean Corpuscular Volume 92 fL (80-100); Monocytes Percent Auto 5.9 % (0.0-11.0); Neutrophils Percent Auto 81.4 % (42.0-72.0); Platelet Count* 175 K/uL (140-440); RDW Coefficient of Variation % 14.9 % (11.5-15.5); Red Blood Count 3.84 m/uL (4.00-5.20); White Blood Count* 16.34 K/uL (4.50-11.00)
[2024-02-20 02:29] LABS: Slide Review Reflex No
[2024-02-20] MEDS: LIDOCAINE 2% (PF) 5 ML VIAL EPIDURAL (03:11)
[2024-02-20] MEDS: ROPIVACAINE 0.2% 100 ml 100 ML 10 MG EPIDURAL (03:15)
--- NOTE | 2024-02-20 03:22 | P.ANBPRC_ITS ---
[facility] Medical History (Updated 02/18/24 @ 21:45 by Scarlett Troncoso MD) labor ?O60.00 - labor without delivery, unspecified trimester (ICD-10) Anemia affecting ?O99.019 - Anemia complicating , unspecified trimester (ICD-10) Abnormal thyroid blood test ?R79.89 - Other specified abnormal findings of blood chemistry (ICD-10) Medical marijuana use ?Z79.899 - Other manager intermediate (current) drug therapy (ICD-10) GERD (gastroesophageal reflux disease) ?K21.9 - Gastro-esophageal reflux disease without esophagitis (ICD-10) Tension headache ?G44.209 - Tension-type headache, unspecified, not intractable (ICD-10) Migraine with aura ?G43.109 - Migraine with aura, not intractable, without status migrainosus (ICD-10) Factor V Leiden mutation ?D68.51 - Activated protein C resistance (ICD-10) Surgical History (Updated 02/18/24 @ 21:45 by Scarlett Troncoso MD) Status post primary low transverse section (01/31/22) ?Z98.891 - History of uterine scar from previous surgery (ICD-10) History of esophagogastroduodenoscopy (EGD) ?Z98.890 - Other specified postprocedural states (ICD-10) Family History Maternal Grandmother Cancer Factor V Leiden Thyroid cancer Kidney disease Crohn's disease Mother Factor V Leiden Stroke, Onset Age: 37 Graves disease Romain's thyroiditis Brother Factor V Leiden Aunt Factor V Leiden Social History Narrative: Lives in [place] with boyfriend and daughter. Lives with significant other, Tilghman. Works for [employer] 1 daughter, 1 cat and 1 dog Does not exercise on regular basis Alcohol: No Nonsmoker No recreational drug use Dietary restrictions: lactose intolerance Multiple body piercings and tattoos What is your current living situation?: I presently have a place to live Problems where you live: no known problems In the past 12 months, utilities in danger of being shut off: no In past 12 months, lack of transportation kept you from medical appts, meetings, work, or getting things needed for daily living: no In the past 12 mos, have been you worried that your food would run out before you had money to buy more?: never true In the past 12 mos, the food you bought just didn't last and you didn't have money to buy more?: never true Smoking Status: Never smoker Do you use any of these nicotine containing products: None How often do you have a drink containing alcohol: never How often do you have six or more drinks on one occasion: Never AUDIT-C Alcohol total score: 0 Non-prescribed substance use: denies use How often does anyone, including family, friends and others, physically hurt you : never How often does anyone, including family, friends and others, insult or talk down to you: never How often does anyone, including family, friends and others, threaten you with harm: never How often does anyone, including family, friends and others, scream or curse at you: never Little interest or pleasure in doing things: not at all Feeling down, depressed, or hopeless: not at all Meds Home Medications and Allergies Home Medications ?Medication ?Instructions ?Recorded ?Confirmed ?Type docosahexaenoic acid 200 mg 200 mg PO DAILY 07/27/23 02/20/24 History capsule ( DHA) calcium carbonate (Tums) 200 mg PO BID 10/18/23 02/20/24 History famotidine 20 mg tablet (Pepcid) 20 mg PO QDAY 12/13/23 02/20/24 History ferrous sulfate 250 mg (50 mg 250 mg PO Q OTHER DAY 01/20/24 02/20/24 History iron) tablet,extended release Allergies Allergy/AdvReac Type Severity Reaction Status Date / Time No Known Drug Allergies Allergy Verified 02/20/24 02:40 Results Labs Labs: Laboratory Results - last 24 hr 02/20/24 02:15 WBC 16.34 H RBC 3.84 L Hgb 11.9 L Hct 35.4 MCV 92 MCH 31 MCHC 34 RDW Coeff of Neida 14.9 Plt Count 175 Neut % (Auto) 81.4 H Lymph % (Auto) 11.9 L [place] % (Auto) 5.9 Eos % (Auto) 0.2 Baso % (Auto) 0.1 Neut # (Auto) 13.30 H Lymph # (Auto) 1.90 [place] # (Auto) 1.00 H Eos # (Auto) 0.00 Baso # (Auto) 0.00 Abs Immat Gran (auto) 0.10 Imm/Tot Granulo (auto) 0.5 Vital Signs Vital Signs: Last Vital Signs Temp 98.6 F 02/20/24 02:00 Pulse 92 02/20/24 03:20 Resp 18 02/20/24 02:00 BP 125/67 02/20/24 03:20 Pulse Ox 99 02/20/24 03:16 Weight: 62.142 kg Height: 160.02 cm Anesthesia Procedures Epidural Insertion Patient Location: OB Start Time: 03:00 Stop Time: 03:45 Start Date: 02/20/24 Stop Date: 02/20/24 Reason for Block: primary anesthetic Patient Position: sitting Performed By: Gunner De La Cruz Preanesthetic Checklist: IV checked, risks and benefits discussed, surgical consent, monitors and equipment checked, pre-op evaluation, timeout performed and anesthesia consent Prep: chlorhexidine gluconate Monitoring: blood pressure monitoring, personnel monitor, continuous pulse oximetry and heart rate Approach: midline Vertebral Space: lumbar (1-5) Needle Type: Tuohy needle Injection Technique: continuous catheter (catheter) Needle gauge: 17 Needle Length (cm): 10 cm Needle Insertion Depth (cm): 5 Catheter Gauge: 19 Catheter Type: multi-orifice Catheter at skin depth (cm): 10 Test Dose Result: negative and lidocaine 1.5% with epinephrine 1 to 200,000
[2024-02-20] MEDS: LACTATED RINGERS 1000 ML 1,000 ML 125 ML IV (04:59)
[2024-02-20] MEDS: PHENYLEPHRINE 100 MCG/ML SYRINGE IVP ×4 (06:43→07:47)
--- NOTE | 2024-02-20 06:54 | W.PM.LDBA ---
Subjective History of Present Illness Date Seen: 02/20/24 Narrative: Patient is being admitted to Labor and Delivery , in labor for VTOLAC. She is a 23 year old at 37 5/7 weeks gestation. Her full history and physical was dictated by Dr. Guardado on 02/16/24. Please see this for details. Patient had been kept under observation 02/18/24-02/19/24, jam frequently but cervix had remained unchanged at 2.5cm. This morning arrives and upon re evaluation cervix is found 4.5cm, with painful regular uterine contractions. Specific Issues/Plans G 3 P 1 #Admitted to [facility] at 34 4/7 weeks due to labor sx. 01/28/24-01/30/24 s/p betamethasone on 01/29/24 - GBS NEGATIVE from that admission 01/29 - Repeat GBS at 38 weeks if still # Personal history of Factor V Leiden: Heterozygous. Denies history of VTE. - anticoagulation X 6 weeks in case of or other risk factors # History of : Due to arrest of decent 02/01/20. 8 lbs 1 oz. Desires TOLAC. Consent signed. -Likelihood of success = 72% -34-week growth ultrasound: EFW 46% as below -Considering at 39 week IOL # History of immediate hemorrhage requiring Bakri balloon and transfusion #Abnormal 1hrGTT -3hr GTT: all normal #Anemia: - H/o iron transfusions in prior . -CBC 09/27/23: Hb 12.0, Hct 36.4% -Currently taking daily iron 25 mg per patient report. -Written materials provided on dietary intake of iron rich foods. -HGB at 28 weeks: 10.7mg/dL, instructed to increase to 2 pills every other day. Re check Hgb at 32 weeks, instead of 34 weeks. 10.4 Ferritin 4.9 -S/p Iron infusion 01/19 # Nausea: Zofran prescription refilled. -Advised patient she may take over the counter vitamin B6 and Unisom if desires. -Discussed symptom management with small frequent meals. # Chronic diarrhea, nausea/vomiting and abdominal pain since 03/2023. As of 10/17, nausea / vomiting and pain has improved. Previous EGD and colonoscopy reportedly unrevealing. GI consult with [facility] in [place] 08/22/23: fecal calprotectin, CRP, magnesium, SIBO and fructose breath tests ordered. CT planned . Follow up in 11/2023. # Possible subclinical hypothyroidism. TSH < 0.015 on 08/30/23. Free T4 normal at 1.12, total T3 normal. Referral to Endocrine: repeat TSH, free T4 and total T4 and TSI antibody testing recommended. She never followed up; thus, these tests are ordered here 01/31. 02/01/24: TSH: 0.505, Free T4: 1.11, Total T4: 13.5 H, TSI negative. Should not need any additional evaluation or testing at this moment. Consider repeating 6 weeks pp # History of Migraine with Aura: Previously on daily Propranolol and rescue Rizatriptan prepregnancy. Discontinued with positive UPT. -Not currently taking migraine medication. Advised patient to contact clinic if experiencing unmanageable headache. # Vitamin D deficiency. 26 on 09/19. On supplementation # Varicella is equivocal. PP vaccine [] Imagin01/30/2024: Vertex. Posterior placenta, three-vessel umbilical cord, normal amount of amniotic fluid with a single deepest pocket of amniotic fluid 6.2 cm. EFW: 2687 g, 46 percentile. Abdominal circumference: 67 percentile. Normal anatomy. Flu: Recommended, Patient desires, left clinic prior to administration. Nurse to call patient to offer. Covid: Recommended, declined Offer 3rd and final HPV vaccine PP [] OB - Problem Based A/P Additional Plan (1) Previous delivery affecting : Status: Acute (2) : Status: Acute Plan 1. In labor for VTOLAC. Type and screen, IV access prioritized. 2. Epidural in place. 3. GBS negative, no need for antibiotics. 4. Expectant management. 5. Continuous monitoring. 6. OR team in house in active labor. Delivery/Labor/Induction Plan Plan: expectant management OB Exam Physical Exam Vital signs: Temp Pulse Resp BP Pulse Ox 98.3 F 88 16 95/49 L 99 02/20/24 06:15 02/20/24 06:43 02/20/24 06:15 02/20/24 06:43 02/20/24 03:16 Detailed Labor and Delivery Exam Patient Gravid: Yes Dilation (cm): 4 Tachysystole: No Contraction intensity: Strong/Firm Fetus (Single) Amniotic Membrane Status: intact Heart Rate Baseline: 130 Monitor Accelerations: Present Monitor Decelerations: None Seasonal Greenery Bundler Variability: Moderate (6-25)
[2024-02-20] MEDS: ONDANSETRON 2 MG/ML inj 4 MG IV (07:29)
--- NOTE | 2024-02-20 07:31 | PM.OBPNL ---
Subjective Time Seen by Provider: 07:30 Date Seen: 02/20/24 Narrative: Patient having increased nausea since epidural placement. BP slight lower than baseline since then. Abdomen soft in between contraction and patient has no pain since epidural placement. Will treat BP and give IV zofran. Patient continues to desire TOLAC. Objective Vital Signs: Last Vital Signs Temp 98.3 F 02/20/24 06:15 Pulse 110 H 02/20/24 07:29 Resp 16 02/20/24 06:15 BP 99/57 L 02/20/24 07:29 Pulse Ox 99 02/20/24 03:16 Pelvic Exam Dilation (cm): 6 Effacement (%): 90 Station: 0 Comments: Bulging bag. Patient consented to AROM. Contractions Contraction intensity: Strong/Firm Assessment Status: Category l Heart Rate Baseline: 130 Shoulder Puncher Variability: Moderate (6-25) Monitor Accelerations: Present Monitor Decelerations: None Plan Plan: - AROM at 0723. Clear fluid. - Will continue to monitor and augment with pitocin PRN
[2024-02-20] MEDS: ePHEDrine sulfate 5 MG/ML inj 10 MG IVP (08:16)
[2024-02-20] MEDS: OXYTOCIN 30 unit/500 ML in NS 30 UNIT/500 ML BAG 300 UNIT IVPB (09:53)
[2024-02-20] MEDS: OXYTOCIN 10 UNIT/ML INJ IM (10:02)
--- NOTE | 2024-02-20 12:35 | W.PM.VAGD1_ITS ---
Procedure Delivery date: 02/20/24 Procedure Done: Global Events: Previous Intrapartal Events: Labor Augmentation Delivery augmentation: rupture of membranes Delivery monitor: external FHT Route of delivery: Episiotomy description: None Laceration description: Perineal - 2nd Degree Delivery repair: Vicryl and Chromic Estimated blood loss (mL): 300 Anesthesia type: Epidural Disposition: floor Narrative: Ambrose is a 23 year-old admitted on 02/20/24 at 37 and 6/7 weeks gestation for spontaneous labor in the setting of previous delivery x 1. She desired TOLAC. GBS negative Labor Analgesia: Epidural Pitocin: For active management of the 3rd stage only AROM: 02/19@ 0723, with clear fluid Labor onset: 02/19 at 0200 Complete: 02/19 at 0854 Pushin/14 at 0854 heart tones during second stage were II due to rare deep variables with contractions and heart rate at baseline 160-170 bpm. Moderate variability with acceleration. Abrial was completely afebrile. At 0953 a viable male delivered in vertex OA presentation over intact via spontaneous vaginal delivery. The infant's body was delivered in the usual manner without difficulty. The was placed on maternal abdomen. The cord was clamped and cut after a 30-60 second delay. The nose and mouth were bulb suctioned. Infant weight: 3275g. 8 at 1 minute and 9 at 5 minutes. Shoulder dystocia: No. Nuchal cord: x 1. Loose and reduced after delivery of the body. Placenta delivered spontaneously and complete at 0957 with a 3-vessel cord. Placenta examined and noted to be complete. The cervix and vagina were inspected for lacerations, and 2nd degree laceration was noted. Laceration(s): 2nd degree perineal, repaired with 2-0 vicryl in a continuous manner. One figure of 8 placed on the perineum at the vaginal fourchette with 2- 0 chromic. Complications: None Estimated blood loss: 300 cc Uterotonics: 40u of pitocin. Sponge and needles counts are correct. Mother and infant were stable at the time of this note. [place] Gender: Male total score - 1 minute: 8 total score - 5 minute: 9
[2024-02-20] MEDS: IBUPROFEN 600 MG TABLET PO ×2 (13:45→21:28)
[2024-02-20] MEDS: ACETAMINOPHEN 500 MG TABLET 1000 MG PO (17:18)
[2024-02-21 01:12] VITALS: BP 95/58; PULSE 87; RESP 18; TEMP 37; O2SAT 98
[2024-02-21 04:21] VITALS: BP 104/69; PULSE 83; RESP 16; TEMP 36.8
[2024-02-21] MEDS: ACETAMINOPHEN 500 MG TABLET 1000 MG PO (06:15)
[2024-02-21] MEDS: IBUPROFEN 600 MG TABLET PO (06:15)
[2024-02-21 06:16] LABS: Hemoglobin* 10.1 gm/dL (12.0-16.0)
--- NOTE | 2024-02-21 08:22 | PM.OBDSVD1 ---
DS: Providers Provider Date Seen: 02/21/24 Date of admission: 02/20/24 02:20 Primary care physician: Shalonda Barrett MD Admitting Clinician: Susie Almanza MD Attending Physician on discharge: Susie Almanza MD Date of Discharge: 02/21/24 DS: Diagnosis Discharge Diagnosis (1) Lactating mother: Status: Acute (2) care following vaginal delivery: Status: Acute (3) Previous delivery affecting : Status: Acute (4) Anemia affecting : Status: Acute (5) Factor V Leiden mutation: Status: Chronic Problem details: heterozygous Exam Narrative: Exam Narrative: GENERAL APPEARANCE:? normal affect, alert, no distress? MOOD:? appropriate? CHEST:? clear to auscultation and percussion? HEART:? regular rate and rhythm? ABDOMEN:? soft, non-tender the uterine fundus is U/3 and is appropriate for the stage of recovery.? PERINEUM:? mild edema of the perineum, there is a 2nd degree laceration that is healing well.? EXTREMITIES:? normal and no edema? Const: Vital Signs, click to edit/add: Vital Signs - 24 hr 02/20/24 08:24 02/20/24 08:28 02/20/24 08:29 Temperature Pulse Rate 86 Pulse Rate [Pulse Oximeter] Respiratory Rate Blood Pressure 95/55 L Blood Pressure [Ri ght Arm] Pulse Oximetry 100 100 Oxygen Delivery Me thod 02/20/24 08:34 02/20/24 08:39 02/20/24 08:44 Temperature Pulse Rate 87 Pulse Rate [Pulse Oximeter] Respiratory Rate Blood Pressure 111/51 L Blood Pressure [Ri ght Arm] Pulse Oximetry 100 100 100 Oxygen Delivery Ok thod 02/20/24 08:49 02/20/24 08:54 02/20/24 09:14 Temperature Pulse Rate 120 H Pulse Rate [Pulse Oximeter] Respiratory Rate Blood Pressure 119/55 L Blood Pressure [Ri ght Arm] Pulse Oximetry 100 100 Oxygen Delivery Ok thod 02/20/24 09:23 02/20/24 09:29 02/20/24 09:59 Temperature 98.5 F Pulse Rate 102 H 111 H Pulse Rate [Pulse Oximeter] Respiratory Rate Blood Pressure 117/62 120/57 L Blood Pressure [Ri ght Arm] Pulse Oximetry Oxygen Delivery Ok thod 02/20/24 10:00 02/20/24 10:00 02/20/24 10:05 Temperature Pulse Rate Pulse Rate [Pulse Oximeter] Respiratory Rate Blood Pressure Blood Pressure [Ri ght Arm] Pulse Oximetry 93 93 98 Oxygen Delivery Me thod 02/20/24 10:07 02/20/24 10:10 02/20/24 10:13 Temperature Pulse Rate 104 H Pulse Rate [Pulse Oximeter] Respiratory Rate Blood Pressure 113/50 L Blood Pressure [Ri ght Arm] Pulse Oximetry 94 97 Oxygen Delivery Me thod 02/20/24 10:15 02/20/24 10:28 02/20/24 10:43 Temperature Pulse Rate 99 97 Pulse Rate [Pulse Oximeter] Respiratory Rate Blood Pressure 104/56 L 109/59 L Blood Pressure [Ri ght Arm] Pulse Oximetry 97 Oxygen Delivery Me thod 02/20/24 10:58 02/20/24 11:13 02/20/24 11:28 Temperature Pulse Rate 100 91 93 Pulse Rate [Pulse Oximeter] Respiratory Rate Blood Pressure 103/57 L 108/55 L 107/58 L Blood Pressure [Ri ght Arm] Pulse Oximetry Oxygen Delivery Me thod 02/20/24 11:43 02/20/24 15:30 02/20/24 21:31 Temperature 97.6 F 97.9 F Pulse Rate 100 Pulse Rate [Pulse Oximeter] 86 82 Respiratory Rate 16 16 Blood Pressure 110/57 L Blood Pressure [Ri ght Arm] 96/55 L 95/58 L Pulse Oximetry 97 98 Oxygen Delivery Me thod Room Air Room Air 02/21/24 01:12 02/21/24 04:21 Temperature 98.6 F 98.3 F Pulse Rate Pulse Rate [Pulse Oximeter] 87 83 Respiratory Rate 18 16 Blood Pressure Blood Pressure [Ri ght Arm] 95/58 L 104/69 Pulse Oximetry 98 Oxygen Delivery Me thod Room Air Room Air Documenting provider has reviewed patient's vital signs: yes OB - DS: Summary Hospital Course Hospital Course: Deanna is a 23 year old G 3 P 2 at 37.6 weeks gestation that was admitted to the Center on 02/20/24 for spontaneous labor. She had an uncomplicated vaginal delivery. She delivered a viable male infant. She is breast feeding and denies concerns. the patient has done well. Her pain is well controlled with current medications.? She has no new complaints.? Urinary output is adequate and she is voiding without difficulty.? Has a good appetite, is tolerating a general diet, is passing flatus, and has not had a bowel movement.? Has scant amount of rubra lochia.? She denies concerns with her lacerations and feels that the swelling is improving with ice over time. She is ambulating well. She is requesting discharge home today after 24 hour testing is complete if her baby is cleared for discharge. She doesn't require prophylactic anticoagulants for her Factor V as she has a and has no complications. She will plan to continue her PO iron supplement . Peripartum Data delivery method: Vaginal Laceration description: Periurethral - 2nd Degree Episiotomy description: None complications: none [place] Gender: Male Infant Discharge Plan: Home Status at Discharge Functional status at discharge: independent ambulation Overall status at discharge: patient is progressing back to baseline Time Spent with Patient Time attestation: Total time spent providing and/or coordinating discharge services: Discharge Plan Discharge Disposition: Home, Self-Care Date of Admission: 02/20/24 02:20 Primary Care Provider: Shalonda Barrett Condition: Stable Anticipated Discharge Date/Time: 02/21/24 12:00 Discharge Medications: New docusate sodium 100 mg Capsule 100 mg PO DAILY Qty: 90 0RF Rx Instructions: Take 1-2 tablets daily as needed for constipation. ibuprofen 600 mg Tablet 600 mg PO Q6H PRNQty: 60 0RF Continued calcium carbonate [Tums] 200 mg calcium (500 mg) tablet,chewable 200 mg PO BID sumatriptan succinate 50 mg tablet See Rx Instructions PO .COMPLEX Qty: 7 0RF Rx Instructions: take 1 tab at onset of headache; if no relief may repeat 1 tab after at least 2 hrs; max = 4 tabs/24 hr PO DHA 200 mg capsule 200 mg PO DAILY famotidine [Pepcid] 20 mg tablet 20 mg PO QDAY ferrous sulfate 250 mg (50 mg iron) tablet extended release 250 mg PO Q OTHER DAY Discharge Orders: Discharge Order (Routine); Ordered 02/21/24 Ordered By: Vicki Linn Patient Education: OB Vaginal/Breast Feeding Additional Instructions: Discharge instructions were reviewed with the patient including signs and symptoms of infection and home going medications.? Lifting Restrictions: 20 pounds for 6? weeks? ?? Do not drive while taking narcotic pain meds.? Off Work or School for 6 weeks.? ?? Symptoms to report to doctor:? -Bleeding that saturates more than one pad per hour? -Passing clots larger than the size of a golf ball? -Pain not relieved by prescribed medication? -Fever above 100.4 degrees Fahrenheit? -A foul vaginal odor? -Difficulty in emotions, mood and functions? -Thoughts of hurting yourself and/or ? -Painful, reddened area in your breast? -Any drainage, redness or tenderness in your IV/epidural site? -Severe headache that doesn't improve after taking medications? -Changes in vision, including temporary loss of vision, blurred vision, and/or light sensitivity? -Upper abdominal pain (usually under ribs on the right side)? -Decrease in urination or painful, frequent urinating? -Chest pain? -Shortness of breath? -Tenderness or pain with redness and/swelling in the calf(s) of your leg? ?? Follow Up in clinic in 2 and 6 weeks.? ?? consultation services are available to all mothers and babies for the first year after delivery.? To make an appointment, please call [phone].? Activity Level: Activity as Tolerated Discharge Diet: Regular Follow Up Appointments: [facility] [Provider Group] Forms: [employer] Info Instructions
[2024-02-21 08:38] VITALS: BP 104/67; PULSE 83; RESP 16; TEMP 36.6; O2SAT 98
--- OUTSIDE RECORDS SUMMARY | 2024-02-21 11:32 | XMS_ITS | Clinical Summary ---
Author Organization [place] Address [address] [place] [address]. [place] [address] Care Team Providers Care Assistant Golf Professional Name Role Phone Shalonda Barrett MD Primary [...] - 01/30/2024 9:38 AM CDT Hospital Encounter [facility] [address] [facility] [place] [address] Claus Herman MD Discharge Disposition: Home or Self Care 01/28/2024 Hospital Encounter [facility] [address] [facility] [place] [address] Claus Herman MD from Last 3 [...] CDT Oxygen Saturation 96% 06/19/2019 11:22 PM MEMBERSHIP ASSISTANT Inhaled Oxygen Concentration - - Weight 60.9 kg (134 lb 3.2 oz) 01/29/2024 7:35 A M CDT Height 162.6 cm (5' 4) 06/19/2019 8:51 PM MEMBERSHIP ASSISTANT Body Mass Index 23.04 06/19/2019 8:51 PM MEMBERSHIP ASSISTANT Plan of Treatment Health Maintenance Due Date Last Done Comments ADVANCE CARE PLANNING 2000 ANNUAL REVIEW OF HM ORDERS 2000 YEARLY PREVENTIVE VISIT 2000 HEPATITIS C SCREENING 2018 PHQ-2 (once per calendar year) 2023 MATERNAL SCREENING DISCUSSION 08/09/2023 OBGCT (OB) 11/15/2023 COVID-19 Vaccine ( season) 2024 INFLUENZA VACCINE (#1) 2024 02/19/2019, 2001 GROUP B STREP SCREENING 02/07/2024 01/29/2024 CHLAMYDIA [...] on patient's age to complete this topic RSV VACCINE (No Doses Required) Completed Procedures Procedure Name Priority Date/Time Associated Diagnosis Comments MFM US COMPREHENSIVE SINGLE Routine 01/30/2024 8:25 AM [...] ? Study Date: ??01/30/2024 7:08am Pat. NO: ??[id number] ?Referring ??MD: ROSA BARBA Site: ? Application Processor: Vicky Alvarado RDMS : ??2000 ?Age: ?? 23 ----- INDICATION ----- Inpatient. labor. METHOD ----- [facility] ANTEPARTUM inpatient exam. Transabdominal ultrasound [...] lb 15 ?oz EFW by ? Hadlock ([id number]) Head / Face / Neck Biometry: Clay [place] Cutting Machine Operator ?4.3 ? mm CM ? [...] view. RVOT view. LVOT view. 3-vessel view. 6-mkdfkq-fxyfyjv view. Situs. Aortic arch view. Bicaval view. [...] GARCIA Study Date: 01/30/2024 7:08am Pat. NO: [id number] Referring MD: ROSA BARBA Site: Application Processor: Vicky Alvarado RDMS : 2000 Age: 23 ----- INDICATION ----- Inpatient. labor. METHOD ----- [facility] ANTEPARTUM inpatient exam. Transabdominal ultrasound examination.View: Sufficient ----- Thomas . Number of fetuses: 1 DATING ----- DateDetailsGest. age TONYA U/S 4based upon AC, BPD, Femur, HC35 w + [...] EFW (lb,oz) 5 lb 15oz EFW by Hadlock([id number]) Head / Face / Neck Biometry: [place] Cutting Machine Operator 4.3mm CM 6.3mm Nasal bone 10.4mm ANATOMY ----- The following structures appear normal: Head / Neck Cranium. Head size. Head shape.Lateral ventricles. Choroid plexus. Midline falx. Cavum septi pellucidi.Cerebellum. Cisterna magna. Parenchyma. Thalami. Vermis. Neck. Face Lips. Profile. Nose. Maxilla.Mandible. Orbits. Lens. Heart / Thorax 4-chamber view. RVOT view. LVOT view.3-vessel view. 0-tsehss-uyxclgw view. Situs. Aortic arch view. Bicavalview. Ductal [...] Jessa Zacarias MD [facility] US ORDERABLE S * (ABNORMAL) CBC with platelets (01/29/2024 10:06 AM CDT) [facility] Signature WBC Count 9.9 4.0 - [...] LAB - BLOOD ORDERABL ES UR LABORATORY [facility] Acute Care Lab [address] [facility], [address] * Adult Type and Screen (01/29/2024 12:56 AM CDT) ABO/RH(D) O POS 01/29/2024 12:34 AM CDT UR BLOOD BANK Antibody Screen Negative Negative 01/29/2024 12:34 AM CDT UR BLOOD BANK SPECIMEN EXPIRATION DATE [id number] 01/29/2024 12:34 AM CDT UR BLOOD BANK Blood STRUCTURE OF RIGHT UPPER LIMB / Unknown Venipuncture / Unknown 01/29/2024 12:56 AM CDT 01/29/2024 1:02 AM CDT Lev Alejandro MD LAB - BLOOD BANK RICHARD T ORDER Performing Organization Address City/[facility]/ZIP Co de Phone Number UR BLOOD BANK [facility] [address] [place] [address], [address] * (ABNORMAL) UA with Microscopic reflex [...] 01/29/2024 1:05 AM CDT UR LABORATORY Specific [place] Urine 1.009 1.003 - 1.035 01/29/2024 1:05 [...] LAB - URINE ORDERABL ES UR LABORATORY [facility] Acute [facility] Lab [address] [place] [address], [address] [place] [address]RUST * Chlamydia trachomatis/Neisseria gonorrhoeae by PCR (01/29/2024 12:38 AM CDT) Chlamydia Trachomatis Negative Negative 01/29/2024 11:09 AM CDT [facility] Comment: Negative for C. trachomatis rRNA by flag car driver mediated amplification. A negative result by flag car driver mediated amplification does not preclude the presence of infection because results are dependent on proper and adequate collection, absence of inhibitors and sufficient rRNA to be detected. Neisseria gonorrhoeae Negative Negative 01/29/2024 11:09 AM CDT [facility] Comment:Negative for N. gono rrhoeae rRNA by flag car driver mediated amplification. A negative result by flag car driver mediated amplification does not preclude the presence of C. trachomatis infection because results are dependent on proper and adequate collection, absence of inhibitors and sufficient rRNA to be detected. Swab CERVIX UTERI STRUCTURE / Unknown Non-blood Collection / Unknown 01/29/2024 12:38 AM CDT 01/29/2024 12:45 AM CDT Lev Alejandro MD LAB - MICRO GENERAL ORDERABLES [facility] Inf. Diseases Diag. Lab [address] [facility], [address] [place] [address], [facility] * (ABNORMAL) Wet prep (01/29/2024 12:38 [...] - MICRO GENERAL ORDERABLES Performing Organization Address City/[facility]/ZIP Co de Phone Number UR LABORATORY [facility] Acute Care Lab [address] [facility], [address] [place] [address], [facility] * Group B strep PCR (01/29/2024 [...] Xpert GBS LB Assay, performed on the Flock?? [employer] Systems, is a qualitative in vitro [...] settings. The device is not intended for mutgx-hx-ezeo use. Lev Alejandro MD LAB - MICRO GENERAL ORDERABLES [facility] Inf. Diseases Diag. Lab [address] [facility], [address] [place] [address]RUST * HIV-1 Antibody (External Result) (07/27/2023 12:27 AM CDT) HIV 1&2 Antibody (External) Negative Nonreactive [facility] 07/27/2023 12:2 7 AM CDT Patient Reported LAB - HIM EXTERNAL R ESULT [facility] [address] [phone] from Last 3 Months or Most Recently Relevant to Health Maintenance Advance Directives For more information, please contact: [phone] * Full Code (Latest Code Status on File) Date Activated Date Inactivated Comments 01/29/2024 12:33 AM 01/30/2024 11:44 AM All basic and advanced life-sustaining interventions are performed as appropriate Question Answer Comments Code status determined by: Discussion with froylane nt/ legal decision maker Care Teams Assistant Golf Professional Relationship Specialty Start Date End Date Shalonda Barrett MD [facility] [address] [place] [address] PCP - General Family Medicine 01/29/24
--- OUTSIDE RECORDS SUMMARY | 2024-02-21 11:32 | XMS_ITS ---
Author Organization [place] Address [address] [place] [address] Care Team Providers Care Supervisor Hospitality House Name Role Phone Shalonda Barrett MD Primary Care Provider + Transitional Care Management Status:Closed (Closed) Start date:01/31/2024 Enrollment date:01/31/2024 End date:02/14/2024 Close reason:Goals met Continued Care and Services Coordination
--- OUTSIDE RECORDS SUMMARY | 2024-02-21 11:32 | XMS_ITS | Encounter Summary ---
Author Organization [place] Address [facility] [place] [address] Care Team Providers Care Wet Cleaner Machine Name Role Phone No Ref-Primary, Physician Primary Care Provider Shalonda Barrett MD Primary Care Provider + Reason for Visit * Reason Comments Labor * Auth/Cert (Routine) Specialty Diagnoses / Procedures Referred By Contac t Referred To Contact replenishment analyst Diagnoses Maternity*TONYA: * Labor uterine contractions Ur [facility] [address] [place] [address] Referral ID Status Reason Start Date Expiration Date Visits Re quested Visits Authorized [id number] 1 1 Encounter Details Date Type Department Care Team (Latest Contact Info) Description 01/28/2024 10:53 PM CDT - 01/30/2024 9:38 AM CDT Hospital Encounter [facility] [address] [place] [address] Claus Herman MD [address] [place] [address] Discharge Disposition: Home or Self [...] in an abandoned building, in an overnight care home, or couch-surfing.) Yes 01/28/2024 Are you worried [...] Body Mass Index 23.04 06/19/2019 8:51 PM WOODS WARDEN documented in this encounter Discharge Summaries * Jessa Zacarias MD - 01/30/2024 9:28 AM CDT [facility] Discharge Summary Sid Garcia Age: [age] [...] presents as a transfer of care from [facility] with concerns for labor. She started [...] swelling, generalized unwell feeling Jessa Zacarias MD Rodent Exterminator PGY-3 01/30/24 9:31 AM Associated attestation - [...] Where can you learn more? Go to https://[email or web address]-Planner.com.net/patiented Enter N531 in the search box to learn more about Learning About When to Call Your Doctor During (After 20 Weeks). Current as of: November 15, 2022 Content Version: 14.1 ?? [employer]. Care instructions adapted under license by your healthcare professional. If you have questions about a medical condition or this instruction, always ask your healthcare professional. [employer] disclaims any warranty or liability for your [...] bpm, mod variability, accelerations present, no decelerations Robbins: 0 contractions/10 minutes Imaging: [facility] US COMPREHENSIVE (01/30/24) IMPRESSION 1. Thomas [...] concern for labor as a ROBER form [facility]. Her has been notable for: - History of delivery (failure to progress, second stage) - H/o hemorrhage requiring blood transfusion, Bakri balloon - Anemia - GCT elevated, normal GTT - Factor V Leiden heterozygote - Rubella equivocal - Migraines # C/f Labor Presented with painful uterine contractions to [facility]. Workup at outside hospital concerning for possible increasing cervical effacement so transfer was recommended for higher level NICU cares. At presentation to [facility], infectious workup unremarkable including negative wet prep, [...] and discussed with Dr. Claus Zacarias MD Rodent Exterminator PGY-3 01/30/24 8:42 AM Associated attestation - Claus Herman MD - 01/30/2024 11:30 AM CDT Physician Attestation I saw this patient with the resident and agree with the resident/fellow's findings and plan of careas documented in the note. Wemes findings: Patient is a 23 YO at 34w6d who presented as transport from [facility] 01/28/2024 for concerns of threatened labor in the setting of late period and history of LTCS desiring TOLAC. Since admission the cervix remains unchanged and the patient is noting less contractions today. She has taken no further nifedipine. The fetus is reassuring on FHR monitoring. US today is reassuring and normal. The patient is comfortable with discharge to follow up with [facility] OB team. 25 MINUTES SPENT BY [...] bpm, mod variability, accelerations present, no decelerations Robbins: 2 contractions/10 minutes Assessment/Plan Abrial Douglas Garcia is a 23 year old @ 34w5d by LMP c/w 8w1d US, admitted with concern for labor as a ROBER form [facility]. Her has been notable for: - History of delivery (failure to progress, second stage) - H/o hemorrhage requiring blood transfusion, Bakri balloon - Anemia - GCT elevated, normal GTT - Factor V Leiden heterozygote - Rubella equivocal - Migraines # C/f Labor Presented with painful uterine contractions to [facility]. Workup at outside hospital concerning for possible increasing cervical effacement so transfer was recommended for higher level NICU cares. At presentation to [facility], infectious workup unremarkable including negative wet prep, [...] and discussed with Dr. Claus Zacarias MD Rodent Exterminator PGY-3 01/29/24 11:02 AM Associated attestation - Claus Herman MD - 01/29/2024 11:39 AM CDT Physician Attestation I saw this patient with the resident and agree with the resident/fellow's findings and plan of careas documented in the note. [place] findings: Patient is a 23 YO at 34w5d who presented as transport from [facility] last evening for concerns of [...] OK for OP management and delivery at [facility] after 35 weeks. Likely discontinue tomorrow am. [...] on exam, still posterior. Lev Alejandro MD FLIGHT FOLLOWER PGY-3 01/29/2024 7:15 AM documented in this encounter H&P Notes * Lev Alejandro MD - 01/28/2024 11:34 PM CDT Images from the original note were not included. Antepartum History and Physical January 29, 2024 Sid Garcia [id number] HPI Sid Garcia is a 23 year old at 34w4d by LMP c/w 8w1d US who presents as a transfer ofcare from [facility] with concerns for labor. She started to notice back pain and frequent abdominal tightening this morning (01/27). She thought it was [place] Us contractions so continued with her planned [...] Physical Activity: Sufficiently Active (08/17/2023) Received from [facility] Exercise Vital Sign Days of Exercise per Week: 5 days Minutes of Exercise per Session: 60 min Stress: No Stress Concern Present (07/14/2022) Received from [facility] [employer] of Occupational Health - Occupational Stress Questionnaire Feeling of Stress : Only a little Social Connections: Socially Isolated (07/14/2022) Received from [facility] Social Connection and Isolation Panel [NHANES] Frequency of Communication with Friends and Family: More than three times a week Frequency of Social Gatherings with Friends and Family: Once a week Attends Congregational Services: Never Active Member of Clubs or [...] 150 bpm, moderate variability, accelerations present, nodecelerations Robbins: 3-4 contractions in 10 minutes Impression: Category [...] Ketones Urine 100 (A) Negative mg/dL Specific [place] Urine 1.009 1.003 - 1.035 Blood Urine [...] Abnormality Status --------- ------ Adult Type and Screen[[id number]] Final result Please view results for these tests on the individual orders. Adult Type and Screen Result Value Ref Range ABO/RH(D) O POS Antibody Screen Negative Negative SPECIMEN EXPIRATION DATE [id number] Imaging Not available in system. Assessment/Plan 23 year old at 34w5d by LMP consistent with 8w1d US, transferred to [facility] for NICU cares in the setting of [...] course - BMZ: s/p first dose at [facility] 01/27 at 2108 - Magnesium not indicated [...] supervision of Dr. Herman. Lev Alejandro MD FLIGHT FOLLOWER PGY-3 01/29/2024 4:34 AM Associated attestation - Claus Herman MD - 01/29/2024 11:33 AM CDT Physician Attestation I did not see the patient on this date. [facility] [...] CDT Plan of care reviewed with : iSd Overall Progress: Improving Outcome Evaluation: Sid is [...] PM CDT Patient arrived via ambulance from [facility] at 2255 and admitted to room [...] Procedure Name Priority Date/Time Associated Diagnosis Comments [facility] US COMPREHENSIVE SINGLE Routine 01/30/2024 8:25 [...] ? Study Date: ??01/30/2024 7:08am Pat. NO: ??[id number] ?Referring ??MD: ROSA BARBA Site: ? Rug Cutter: Vicky Alvarado RDMS : ??2000 ?Age: ?? 23 ----- INDICATION ----- Inpatient. labor. METHOD ----- [facility] ANTEPARTUM inpatient exam. Transabdominal ultrasound examination. View: [...] lb 15 ?oz EFW by ? Hadlock ([id number]) Head / Face / Neck Biometry: Fire Prevention Bureau Captain ?4.3 ? mm CM ? 6.3 ? [...] view. RVOT view. LVOT view. 3-vessel view. 4-ntxxwo-efmrltq view. Situs. Aortic arch view. Bicaval view. [...] GARCIA Study Date: 01/30/2024 7:08am Pat. NO: [id number] Referring MD: ROSA BARBA Site: Rug Cutter: Vicky Alvarado RDMS : 2000 Age: 23 ----- INDICATION ----- Inpatient. labor. METHOD ----- [facility] ANTEPARTUM inpatient exam. Transabdominal ultrasound examination.View: Sufficient [...] EFW (lb,oz) 5 lb 15oz EFW by Hadlock([id number]) Head / Face / Neck Biometry: Fire Prevention Bureau Captain 4.3mm CM 6.3mm Nasal bone 10.4mm ANATOMY ----- The following structures appear normal: Head / Neck Cranium. Head size. Head shape.Lateral ventricles. Choroid plexus. Midline falx. Cavum septi pellucidi.Cerebellum. Cisterna magna. Parenchyma. Thalami. Vermis. Neck. Face Lips. Profile. Nose. Maxilla.Mandible. Orbits. Lens. Heart / Thorax 4-chamber view. RVOT view. LVOT view.3-vessel view. 7-zboecg-xlclwiu view. Situs. Aortic arch view. Bicavalview. Ductal [...] volume appeared normal. Jessa Zacarias MD [facility] US ORDERABLE S * (ABNORMAL) CBC with platelets (01/29/2024 10:06 AM CDT) [facility] Signature WBC Count 9.9 4.0 - 11.0 [...] LAB - BLOOD ORDERABL ES UR LABORATORY [facility] Acute Care Lab [facility], [address] [place] [phone] * Adult Type and Screen (01/29/2024 12:56 AM CDT) ABO/RH(D) O POS 01/29/2024 12:34 AM CDT UR BLOOD BANK Antibody Screen Negative Negative 01/29/2024 12:34 AM CDT UR BLOOD BANK SPECIMEN EXPIRATION DATE [id number] 01/29/2024 12:34 AM CDT UR BLOOD BANK Blood STRUCTURE OF RIGHT UPPER LIMB / Unknown Venipuncture / Unknown 01/29/2024 12:56 AM CDT 01/29/2024 1:02 AM CDT Lev Alejandro MD LAB - BLOOD BANK RICHARD T ORDER Performing Organization Address [facility]/ZIP Co de Phone Number UR BLOOD BANK [facility] [address] [place] [address], Room [place] [phone] * (ABNORMAL) UA [...] 01/29/2024 1:05 AM CDT UR LABORATORY Specific [place] Urine 1.009 1.003 - 1.035 01/29/2024 1:05 [...] ES UR LABORATORY [facility] Acute Care Lab [address] [facility], [address] [place] [address], [facility] * Chlamydia trachomatis/Neisseria gonorrhoeae by PCR (01/29/2024 12:38 AM CDT) Chlamydia Trachomatis Negative Negative 01/29/2024 11:09 AM CDT [facility] Comment: Negative for C. trachomatis rRNA by fence laborer mediated amplification. A negative result by fence laborer mediated amplification does not preclude the presence of infection because results are dependent on proper and adequate collection, absence of inhibitors and sufficient rRNA to be detected. Neisseria gonorrhoeae Negative Negative 01/29/2024 11:09 AM CDT [facility] Comment:Negative for N. gono rrhoeae rRNA by fence laborer mediated amplification. A negative result by fence laborer mediated amplification does not preclude the presence of C. trachomatis infection because results are dependent on proper and adequate collection, absence of inhibitors and sufficient rRNA to be detected. Swab CERVIX UTERI STRUCTURE / Unknown Non-blood Collection / Unknown 01/29/2024 12:38 AM CDT 01/29/2024 12:45 AM CDT Lev Alejandro MD LAB - MICRO GENERAL ORDERABLES [facility] Inf. Diseases Diag. Lab [address] [facility], [address] [place] [address], [facility] * (ABNORMAL) Wet prep (01/29/2024 12:38 [...] LAB - MICRO GENERAL ORDERABLES UR LABORATORY [facility] Acute Care Lab [address] [facility], [address] [place] [address], [facility] * Group B strep PCR (01/29/2024 [...] LABORATORY - 01/29/2024 8:46 PM CDT The [place] Xpert GBS LB Assay, performed on the [employer]?? [employer], is a qualitative in vitro diagnostic [...] settings. The device is not intended for jshdz-ru-wfad use. Lev Alejandro MD LAB - MICRO GENERAL ORDERABLES [facility] Inf. Diseases Diag. Lab [address] [facility], [address] [place] [address] * HIV-1 Antibody (External Result) (07/27/2023 12:27 AM CDT) HIV 1&2 Antibody (External) Negative Nonreactive [facility] 07/27/2023 12:2 7 AM CDT Patient Reported LAB - HIM EXTERNAL R ESULT [facility] [address] [place], [place] [id number] [place] [address] * Hepatitis B Surface Antigen (External Result) (07/27/2023 12:27 AM CDT) Hepatitis B Surface Antigen (External) Negative [facility] 07/27/2023 12:2 7 AM CDT Patient Reported LAB - HIM EXTERNAL R ESULT [facility] [address] [place] [address], [facility] [phone] * Rubella Antibody IgG (External Result) (07/27/2023 12:27 AM CDT) Rubella Antibody IgG (External) Immune Nonreactive [facility] 07/27/2023 12:2 7 AM CDT Patient Reported LAB - HIM EXTERNAL R ESULT Performing Organization Address City/[facility]/ZIP Co de Phone Number [facility] [address] [place] [address], [facility] [phone] documented in this encounter Visit Diagnoses Diagnosis [...] lung maturity, Antepartum 2003 ($Given - Provider: aRdha Mendoza, RN) docusate sodium (COLACE) capsule 100 [...] Antepartum documented in this encounter Care Teams Wet Cleaner Machine Relationship Specialty Start Date End Date No Ref-Primary, Physician PCP - General 06/19/19 01/28/24 Shalonda Barrett MD [facility] [address] [place] [address] PCP - General Family Medicine 01/29/24 documented as of this encounter
--- OUTSIDE RECORDS SUMMARY | 2024-02-21 11:32 | XMS_ITS | Encounter Summary ---
Author Organization [facility] Address [address] [place] [address] Care Team Providers Care Peanut Butter Maker Name Role Phone Elsewhere, Pcp Primary [...] CDT - 12/06/2023 7:30 PM CDT Emergency [facility] [address] [place] [phone] Benny Cuevas M.D. [address] [place] [address] Migraine Headache (Primary Dx); 27 Weeks Gestation [...] How often do you attend chur or sabianism services? Never 07/14/2022 Do you [...] medical care, and heating? Somewhat hard 07/14/2022 [facility] [place] of Occupat ional Health - Occupational Stress [...] your living situation today? I have a [facility] place to live 08/17/2023 Education Answer [...] you are . Follow up with your paper handler if your headache isn't improving by tomorrow. * Attachments The following attachments cannot be sent through Care Everywhere. * Migraine Headache (Wolof) documented in this encounter Medications at Time of Discharge docosahexaenoic acid 200 mg capsule Take by mouth. 07/27/2023 ferrous sulfate (IRON ORAL) Take by mouth. ondansetron ODT (ZOFRAN-ODT) 4 mg disintegrating tablet DISSOLVE ONE TABLET BY MOUTH EVERY 8 HOURS NEEDED FOR NAUSEA AND VOMITING 07/27/2023 cdicmgo-Rz-nccq-FA (VINATE ONE) 60 mg iron-1 mg per [...] Migraine Headache 2. 27 Weeks Gestation ([facility]) ED Disposition Discharge ED Prescriptions [...] corrected in real-time. Please message me via [employer] In Basket if you note any areas [...] R.N.) documented in this encounter Care Teams Peanut Butter Maker Relationship Specialty Start Date End Date Elsewhere, Pcp PCP - General 08/30/21 documented as of this encounter
--- OUTSIDE RECORDS SUMMARY | 2024-02-21 11:32 | XMS_ITS | Encounter Summary ---
Author Organization [facility] Address [address] [place] [address] Care Team Providers Care Rattle Leak And Squeak Repairer Name Role Phone Elsewhere, Pcp Primary Care Provider Unavailabl e Reason for Visit * Reason Comments Sore Throat Pt presents w/throat pain onset last night, denies cough and fever. Encounter Details Date Type Department Care Team (Late st Contact Info) Description 01/11/2024 5:07 PM CDT - 01/11/2024 6:48 PM CDT Emergency [facility] [address] [place] [phone] Alvino Christianson, PDedraA.-Amena., P.A. [address] [phone] Pharyngitis Acute (Primary Dx) Discharge Disposition: Home [...] often do you attend chur ch or baptism services? Never 07/14/2022 Do you [...] medical care, and heating? Somewhat hard 07/14/2022 [facility] [place] of Occupat ional Health - Occupational Stress [...] your living situation today? I have a [facility] place to live 08/17/2023 Education Answer [...] HOURS NEEDED FOR NAUSEA AND VOMITING 07/27/2023 gukvlpz-Co-gfym-FA (VINATE ONE) 60 mg iron-1 mg per [...] M ICROBIOLOGY - GENERAL ORDERABLES Final Result [facility] [address] [place] [address], [facility] NPRG [facility] [address] [place] [address] documented in this encounter Visit Diagnoses Diagnosis Pharyngitis Acute- Primary documented in this encounter Care Teams Rattle Leak And Squeak Repairer Relationship Specialty Start Date End Date Elsewhere, Pcp PCP - General 08/30/21 documented as of this encounter
--- OUTSIDE RECORDS SUMMARY | 2024-02-21 11:32 | XMS_ITS ---
Author Organization [facility] Address [address] [place] [address] Care Team Providers Care Scheduler Maintenance Name Role Phone Unavailable Unavailable Unavailable Surgery Details Not on file Complications Check Surgery Details section. Procedure Estimated Blood Loss Check Surgery Details section. Procedure Findings Check Surgery Details section. Procedure Specimens Taken Check Surgery Details section.
--- OUTSIDE RECORDS SUMMARY | 2024-02-21 11:32 | XMS_ITS | Referral Summary ---
Author Organization [facility] Address [address] [place] [address]. [place] [address] Care Team Providers Care Demand Inspector Name Role Phone Shalonda Barrett MD Primary Care Provider + Encounters Date Type Department Care Team Description 01/28/2024 10:53 PM CDT - 01/30/2024 9:38 AM CDT Hospital Encounter [facility] [address] [place] [phone] Claus Herman MD Discharge Disposition: Home or Self Care 01/29/2024 Travel 01/28/[address] [facility] [address] [place] [phone] Claus Herman MD from Last 3 Months [...] CDT Oxygen Saturation 96% 06/19/2019 11:22 PM WAREHOUSE INCENTIVE SELECTOR Inhaled Oxygen Concentration - - Weight 60.9 kg (134 lb 3.2 oz) 01/29/2024 7:35 A M CDT Height 162.6 cm (5' 4) 06/19/2019 8:51 PM WAREHOUSE INCENTIVE SELECTOR Body Mass Index 23.04 06/19/2019 8:51 PM WAREHOUSE INCENTIVE SELECTOR Plan of Treatment Not on file Procedures Procedure Name Priority Date/Time Associated Diagnosis Comments [facility] US COMPREHENSIVE SINGLE Routine 01/30/2024 8:25 [...] ? Study Date: ??01/30/2024 7:08am Pat. NO: ??[id number] ?Referring ??MD: ROSA BARBA Site: ? Application Chemist: Vicky Alvarado RDMS : ??2000 ?Age: ?? 23 ----- INDICATION ----- Inpatient. labor. METHOD ----- [facility] ANTE[facility] inpatient exam. Transabdominal ultrasound [...] ?5 lb 15 ?oz EFW by ? [facility] ([id number]) Head / Face / Neck Biometry: Svp Research And Strategic Analysis ?4.3 ? mm CM ? 6.3 ? [...] view. RVOT view. LVOT view. 3-vessel view. 6-zlyfae-nqrglti view. Situs. Aortic arch view. Bicaval view. [...] DONAHUE Study Date: 01/30/2024 7:08am Pat. NO: [id number] Referring MD: ROSA BARBA Site: Application Chemist: Vicky Alvarado RDMS : 2000 Age: 23 ----- INDICATION ----- Inpatient. labor. METHOD ----- [facility] ANTEPARTUM inpatient exam. Transabdominal ultrasound [...] EFW (lb,oz) 5 lb 15oz EFW by [facility]([id number]) Head / Face / Neck Biometry: Svp Research And Strategic Analysis 4.3mm CM 6.3mm Nasal bone 10.4mm ANATOMY ----- The following structures appear normal: Head / Neck Cranium. Head size. Head shape.Lateral ventricles. Choroid plexus. Midline falx. Cavum septi pellucidi.Cerebellum. Cisterna magna. Parenchyma. Thalami. Vermis. Neck. Face Lips. Profile. Nose. Maxilla.Mandible. Orbits. Lens. Heart / Thorax 4-chamber view. RVOT view. LVOT view.3-vessel view. 0-keagbg-vfuutku view. Situs. Aortic arch view. Bicavalview. Ductal [...] appeared normal. Jessa Zacarias MD [facility] US ORDERABLE S * (ABNORMAL) CBC with platelets (01/29/2024 10:06 AM CDT) [facility] Signature WBC Count 9.9 4.0 [...] [facility] Acute Care Lab [address] [place] [address], Room [address] * Adult Type and Screen (01/29/2024 12:56 AM CDT) ABO/RH(D) O POS 01/29/2024 12:34 AM CDT UR BLOOD BANK Antibody Screen Negative Negative 01/29/2024 12:34 AM CDT UR BLOOD BANK SPECIMEN EXPIRATION DATE [id number] 01/29/2024 12:34 AM CDT UR BLOOD BANK Blood STRUCTURE OF RIGHT UPPER LIMB / Unknown Venipuncture / Unknown 01/29/2024 12:56 AM CDT 01/29/2024 1:02 AM CDT Lev Alejandro MD LAB - BLOOD BANK RICHARD T ORDER UR BLOOD BANK [facility] Blood Components Lab [address] [place] [address], Room [address] * (ABNORMAL) UA with Microscopic reflex [...] 01/29/2024 1:05 AM CDT UR LABORATORY Specific [place] Urine 1.009 1.003 - 1.035 01/29/2024 1:05 [...] [facility] Acute Care Lab [address] [facility] [address] [place] [phone] * Chlamydia trachomatis/Neisseria gonorrhoeae by PCR (01/29/2024 12:38 AM CDT) Pathologist [facility] Chlamydia Trachomatis Negative Negative 01/29/2024 11:09 AM CDT [facility] Comment: Negative for C. trachomatis rRNA by acute care registered nurse mediated amplification. A negative result by acute care registered nurse mediated amplification does not preclude the presence of infection because results are dependent on proper and adequate collection, absence of inhibitors and sufficient rRNA to be detected. Neisseria gonorrhoeae Negative Negative 01/29/2024 11:09 AM CDT [facility] Comment:Negative for N. gono rrhoeae rRNA by acute care registered nurse mediated amplification. A negative result by acute care registered nurse mediated amplification does not preclude the presence of C. trachomatis infection because results are dependent on proper and adequate collection, absence of inhibitors and sufficient rRNA to be detected. Swab CERVIX UTERI STRUCTURE / Unknown Non-blood Collection / Unknown 01/29/2024 12:38 AM CDT 01/29/2024 12:45 AM CDT Lev Alejandro MD LAB - MICRO GENERAL ORDERABLES [facility] Inf. Diseases Diag. Lab [address] [facility], [address] [place] [address] * (ABNORMAL) Wet prep (01/29/2024 12:38 AM CDT) Pathologist [facility] Trichomonas Absent Absent JET 01/29/2024 1:01 AM [...] LAB - MICRO GENERAL ORDERABLES UR LABORATORY [facility] Acute Care Lab [address] [facility], [address] [place] [address], [facility] * Group B strep PCR (01/29/2024 [...] LABORATORY - 01/29/2024 8:46 PM CDT The CepWhoisid Xpert GBS LB Assay, performed on the [employer], is a qualitative in vitro diagnostic [...] settings. The device is not intended for oassw-ln-xdde use. Lev Alejandro MD LAB - MICRO GENERAL ORDERABLES [facility] Inf. Diseases Diag. Lab [address] [facility], [address] [place] [address], [facility] * HIV-1 Antibody (External Result) (07/27/2023 12:27 AM CDT) HIV 1&2 Antibody (External) Negative Nonreactive [facility] 07/27/2023 12:2 7 AM CDT Patient Reported LAB - HIM EXTERNAL R ESULT [address] [address], [facility] [phone] from Last 3 Months or Most Recently Relevant to Health Maintenance Advance Directives For more information, please contact: [phone] * Full Code (Latest Code Status on File) Date Activated Date Inactivated Comments 01/29/2024 12:33 AM 01/30/2024 11:44 AM All basic and advanced life-sustaining interventions are performed as appropriate Question Answer Comments Code status determined by: Discussion with camilo nt/ legal decision maker Care Teams Demand Inspector Relationship Specialty Start Date End Date Shalonda Barrett MD [facility] [address] [place] [address] PCP - General Family Medicine 01/29/24
--- OUTSIDE RECORDS SUMMARY | 2024-02-21 11:32 | XMS_ITS | Referral Summary ---
Author Organization [facility] Address [address] [place] [address] Care Team Providers Care Steeplechase Jockey Name Role Phone Elsewhere, Pcp Primary Care Provider Unavailabl e Source Comments Patient records contain information from all sites at [facility]. For routine questions regarding patient records, call [phone] during business hours, M-F 8:00 AM - 5:00 PM Central Time. Record requests for emergency care only can be directed to [phone] at any time.[facility] Encounters Date Type Department Care Team Description 01/11/2024 5:07 PM CDT - 01/11/2024 6:48 PM CDT Emergency [facility] [address] [place] [phone] Alvino Christianson P.A.-C., P.A. Pharyngitis Acute (Primary Dx) Discharge Disposition: Home or Self Care 12/06/2023 6:50 PM CDT - 12/06/2023 7:30 PM CDT Emergency [facility] [address] [place] [phone] Benny Cuevas M.D. Migraine Headache (Primary Dx); 27 Weeks Gestation (HCC) Discharge Disposition: Home or Self Care 12/06/2023 6:30 PM CDT Office Visit Urgent Care, [facility], in [place], [place] [address] [place] [phone] Ana Laura Block P.A.-C., P.A. Procedure And Treatment Not Carried Out Due To Patient Leaving Prior To Being Seen By Health Care Provider (Primary Dx) Discharge Disposition: Home or Self Care from Last 3 Months Allergies Active Allergy Reactions Criticality Noted Date Comments Ondansetron GI intolerance 06/08/2022 ODT and liquid forms only, cause n/v. Tolerates IV and oral pill formulations. Medications vcaqgaz-Bp-rawg-FA (VINATE ONE) 60 mg iron-1 mg per [...] e alcohol) [facility] Utilities Answer Date Recorded In the past 12 months has e [employer], [employer], or water [employer] threatened to shut off services in your [...] How often do you attend chur or protestant services? Never 07/14/2022 Do you belong to any clubs o r organizations such as spiritism groups, unions, fraternal or athletic groups, or [...] your living situation today? I have a [facility] place to live 08/17/2023 Education [...] M ICROBIOLOGY - GENERAL ORDERABLES Final Result [facility] [address] [place] [address], [place] NPRG [facility] [address] [place] [address] from Last 3 Months Insurance [employer] Care Teams Steeplechase Jockey Relationship Specialty Start Date End Date Elsewhere, Pcp PCP - General 08/30/21
--- OUTSIDE RECORDS SUMMARY | 2024-02-21 11:32 | XMS_ITS | Encounter Summary ---
Author Organization [facility] Address [address] [place] [address] Care Team Providers Care Oil Analyst Name Role Phone Elsewhere, Pcp Primary Care Provider Unavailabl e Encounter Details Date Type Department Care Team (Late st Contact Info) Description 12/06/2023 6:30 PM CDT Office Visit Urgent Care, [facility], in [place], [place] [address] [place] [address] Ana Laura Block, PDuc-Amena., P.A. [address] [place] [phone] Procedure And Treatment Not Carried Out Due To Patient Leaving Prior To Being Seen By Health Care Provider (Primary Dx) Discharge Disposition: Home or Self Care Social History Tobacco Use Types Packs/Day Years Used Date Smoking Tobacco: Never Passive Smoke Exposure: Never Smokeless Tobacco: Never Alcohol Use Standard Drinks/Week Comments No 0 (1 standard drink = 0.6 oz pur e alcohol) [facility] Utilities Answer Date Recorded In the past 12 months has [employer], gas, oil, or water [employer] threatened to shut off services in your [...] heating? Somewhat hard 07/14/2022 [facility] [place] of Occupat ional Health - Occupational Stress [...] your living situation today? I have a [facility] place to live 08/17/2023 Education [...] Primary documented in this encounter Care Teams Oil Analyst Relationship Specialty Start Date End Date Elsewhere, Pcp PCP - General 08/30/21 documented as of this encounter
--- OUTSIDE RECORDS SUMMARY | 2024-02-21 11:32 | XMS_ITS | Encounter Summary ---
Author Organization [facility] Address [address] [place] [address]. [place] [address] Care Team Providers Care Concreter Name Role Phone Shalonda Barrett MD Primary [...] on filedocumented in this encounter Care Teams Concreter Relationship Specialty Start Date End Date Shalonda Barrett MD [facility] [address] [address] PCP - General Family Medicine 01/29/24 documented as of this encounter
--- OUTSIDE RECORDS SUMMARY | 2024-02-21 11:32 | XMS_ITS | Clinical Summary ---
Author Organization [facility] Address [address] [place] [address] Care Team Providers Care Sap Data Analyst Name Role Phone Elsewhere, Pcp Primary Care Provider Unavailabl e Source Comments Patient records contain information from all sites at [facility]. For routine questions regarding patient records, call [phone] during business hours, M-F 8:00 AM - 5:00 PM Central Time. Record requests for emergency care only can be directed to [phone] at any time.[facility] Allergies Active Allergy Reactions Criticality Noted Date Comments Ondansetron GI intolerance 06/08/2022 ODT and liquid forms only, cause n/v. Tolerates IV and oral pill formulations. Medications izfgmnx-Ky-jisl-FA (VINATE ONE) 60 mg iron-1 mg per [...] CDT - 01/11/2024 6:48 PM CDT Emergency [facility] [address] [place] [phone] Alvino Christianson, PTerryC., P.A. Pharyngitis Acute (Primary Dx) Discharge Disposition: Home or Self Care 12/06/2023 6:50 PM CDT - 12/06/2023 7:30 PM CDT Emergency [facility] [address] [place] [phone] Benny Cuevas M.D. Migraine Headache (Primary Dx); 27 Weeks Gestation (HCC) Discharge Disposition: Home or Self Care 12/06/2023 6:30 PM CDT Office Visit Urgent Care, [facility], in [place], [place] [address] [place] [phone] Ana Laura Block P.A.-C., P.A. Procedure And [...] drink = 0.6 oz pur e alcohol) [facility] Utilities Answer Date Recorded In the past 12 months has e [employer], [employer], or water [employer] threatened to shut off services in your [...] How often do you attend chur or temple services? Never 07/14/2022 Do you [...] medical care, and heating? Somewhat hard 07/14/2022 [facility] of Occupat ional Health - Occupational [...] your living situation today? I have a [facility] place to live 08/17/2023 Education Answer [...] PHQ-2) 05/09/2023 COVID-19 Vaccine ( season) 2024 Influenza Vaccine (#1) 2024 9, 03/15/2002, 03/15/2002 [...] 12/18/2008, 10/03/2002 HPV Vaccines Completed 02/20/2019, 12/25/2012 RSV vaccine - (32-36 weeks) or 60+ years (No Doses Required) Completed Procedures Procedure Name [...] M ICROBIOLOGY - GENERAL ORDERABLES Final Result [facility] [address] [place] [address], [place] [facility] [address] [place] [address] from Last 3 Months Insurance [employer] Care Teams Sap Data Analyst Relationship Specialty Start Date End Date Elsewhere, Pcp PCP - General 08/30/21
--- OUTSIDE RECORDS SUMMARY | 2024-02-21 11:32 | XMS_ITS | Encounter Summary ---
Author Organization [facility] Address [facility] [place] [address] Care Team Providers Care Career Technical Education Instructor Name Role Phone No Ref-Primary, Physician Primary Care Provider Shalonda Barrett MD Primary Care Provider + Reason for Visit * Auth/Cert (Routine) Specialty Diagnoses / Procedures Referred By Berkley lubin Referred To Contact director radiation oncology Diagnoses Maternity*TONYA: * Labor uterine contractions Ur [address] [address] [place] [address] Referral ID Status Reason Start Date Expiration Date Visits Re quested Visits Authorized [id number] 1 1 Encounter Details Date Type Department Care Team (Late st Contact Info) Description 01/28/2024 Hospital Encounter [facility] [address] [place] [address] Claus Herman MD [address] [facility] [address] [place] [address] Social History Tobacco Use Types [...] on filedocumented in this encounter Care Teams Career Technical Education Instructor Relationship Specialty Start Date End Date No Ref-Primary, Physician PCP - General 06/19/19 01/28/24 Shalonda Barrett MD [address] [address] PCP - General Family Medicine 01/29/24 documented as of this encounter
--- OUTSIDE RECORDS SUMMARY | 2024-02-21 11:33 | XMS_ITS | Clinical Summary ---
Author Organization [facility] Address [place], [place] [address] Care Team Providers Care 8Th Grade Teacher Name Role Phone [facility] Primary Care Pr ovider [...] Relation Name Comments Bipolar disorder Brother 1 Ulman Thyroid Disease Brother 1 Ulman Good Health Brother 2 Desai Good Health [...] disease Relation Name Status Comments Brother 1 Ulman Alive Brother 2 Desai Alive Father Maternal [...] Comments Blood Pressure 118/72 06/30/2022 2:37 PM ARCHITECTURAL REPRESENTATIVE Pulse 83 06/30/2022 2:37 PM ARCHITECTURAL REPRESENTATIVE Temperature 36.9 ??C (98.4 ??F) 12/25/2021 4:00 PM CD T Respiratory Rate 16 12/25/2021 4:00 PM CDT Oxygen Saturation 98% 12/25/2021 4:00 PM CDT Inhaled Oxygen Concentration - - Weight 52.2 kg (115 lb) 06/30/2022 2:37 PM ARCHITECTURAL REPRESENTATIVE Height 162.6 cm (5' 4) 12/25/2021 4:00 [...] Procedure Name Priority Date/Time Associated Diagnosis Comments TRAFFIC AGENT THIN PREP PAP SCREEN IMAGED Routine 03/24/2023 12:00 PM ARCHITECTURAL REPRESENTATIVE from Last 3 Months or Most Recently Relevant to Health Maintenance Results * TRAFFIC AGENT THIN PREP PAP SCREEN IMAGED (03/24/2023 12:00 PM ARCHITECTURAL REPRESENTATIVE) Case Report Gynecologic Cytology Report ? Case: [id number] ? Authorizing Provider: ??Harmony Colon ?Collected: ? 03/24/2023 1200 ? MD Lennie ? Ordering Location: ? [facility] ?Received: ?03/28/2023 1655 ? First Screen: ?Nino Dimas ? Specimen: ?TRAFFIC AGENT ThinPrep Vial Screening, Cervical ? 04/07/2023 1:26 PM ARCHITECTURAL REPRESENTATIVE [facility] INTERPRETATION/ RESULT NEGATIVE FOR INTRAEPITHELIAL LESION OR MALIGNANCY (NIL) (none) 04/07/2023 1:26 PM ARCHITECTURAL REPRESENTATIVE [facility] IMEN ADEQUACY Satisfactory for evaluation Endocervical component present 04/07/2023 1:26 PM ARCHITECTURAL REPRESENTATIVE [facility] HPV REQUEST HPV not requested 2022 1:26 PM ARCHITECTURAL REPRESENTATIVE [facility] Date of LMP 03/05/2023 04/07/2023 1:26 PM ARCHITECTURAL REPRESENTATIVE [facility] Abnormal Pap or [place] Bx in last 5 years No 04/07/2023 1:26 PM ARCHITECTURAL REPRESENTATIVE [facility] Menstrual Status Irregular Periods 04/07/2023 1:26 PM ARCHITECTURAL REPRESENTATIVE [facility] Walnut Bx Done Today No 04/07/2023 1:26 PM ARCHITECTURAL REPRESENTATIVE [facility] Additional Information 04/07/2023 1:26 PM ARCHITECTURAL REPRESENTATIVE [facility] Comment: Interpreted at [facility] - [address] [place] [id number] Automated Review Successful 04/07/2023 1:26 PM ARCHITECTURAL REPRESENTATIVE [facility] Comment:Specimen processed s uccessfully by automated ict business analyst device, ThinPrep Imaging System, [employer] Note The pap test is a screening technique, not a diagnostic procedure. It is used primarily to screen for squamous cancers and precursor lesions. Published studies have shown that it is subject to both false negative and false positive results. The pap test should not be used as the sole means to diagnose or exclude pre-malignant and malignant lesions. 04/07/2023 1:26 PM ARCHITECTURAL REPRESENTATIVE [facility] Other (Cervical) 03/24/2023 12:00 PM ARCHITECTURAL REPRESENTATIVE 03/28/2023 4:55 PM ARCHITECTURAL REPRESENTATIVE Harmony Colon MD PATHOLOGY/ CYTOLOGY [facility] Trove [facility] [address] [place] [address], [place] from Last 3 Months or Most Recently Relevant to Health Maintenance Care Teams 8Th Grade Teacher Relationship Specialty Start Date End Date Clinic, [facility] [address] [place] [address] PCP - General 12/19/23
--- NOTE | 2024-02-21 12:00 | PM.ANPOST ---
Post Anesthesia Note Post Anesthesia Note Patient seen: Inpatient Respiratory Status: adequate Cardiovascular Status: adequate Mental Status: baseline Pain: adequate Temp: baseline Anesthetic awareness: N/A Complications: none Follow care: none
[2024-02-21 23:32] LABS: Rapid Plasma Reagin (RPR) Non Reactive (Non Reactive)
== END 2024-02-21 11:25 | disposition home or self-care (01) | DRG 806 ==
LOC: OB OUT 02:22 → OB 03:25
PROVIDERS: Obstetrics & Gynecology; Admitting Provider Obstetrics & Gynecology; PCP Family Medicine; Visit Provider Obstetrics & Gynecology
DX: O34.218 Maternal care for other type scar from previous cesarean delivery (principal); D68.51 Activated protein C resistance; Z37.0 Single live birth; O99.12 Other diseases of the blood and blood-forming organs and certain disorders involving the immune mechanism complicating childbirth; O70.1 Second degree perineal laceration during delivery; O99.02 Anemia complicating childbirth; D64.9 Anemia, unspecified; E55.9 Vitamin D deficiency, unspecified; Z3A.37 37 weeks gestation of pregnancy
CPT/HCPCS: 01967; 36415; 85018; 85025; 86592; 86850; 86900; 86901; G0463; A9270; J2371; J2405; J2590; J2795; J7120

== ENCOUNTER 2024-02-23 14:43 | Outpatient (CLI) | payer MEDICAID, SELFPAY ==
--- NOTE | 2024-02-23 14:45 | CRLHL7_ITS ---
For Patients: As a result of the Century Cures Act, medical imaging exams and procedure reports are released immediately into your electronic medical record. You may view this report before your referring provider. If you have questions, please contact your health care provider. INDICATION: hemorrhage-vaginal delivery on 02/20/2024. COMPARISON: None TECHNIQUE: Lange-scale and color Doppler ultrasound of the uterus and ovaries from a transabdominal. Color-flow and spectral Doppler imaging of both ovaries is performed. FINDINGS: The post gravid uterus is within normal limits in appearance measuring 16.4 x 7.8 x 13.1 centimeters. No uterine masses. No sonographic evidence of retained products of conception/retained placenta. The endometrial stripe measures 1.0 cm in double thickness. The bilateral ovaries were not visualized. No free fluid. IMPRESSION: Unremarkable pelvic ultrasound. The post gravid uterus is within normal limits in appearance with no sonographic evidence of retained products of conception. Dictated by Landon Dang MD @ 02/23/2024 3:18:26 PM (Electronically Signed)
--- OUTSIDE RECORDS SUMMARY | 2024-02-23 14:46 | XMS_ITS | Referral Summary ---
Author Organization [facility] Address [address] [place] [address]. [place] [address] Care Team Providers Care Observer Electrical Prospecting Name Role Phone Shalonda Barrett MD Primary Care Provider + Encounters Date Type Department Care Team Description 01/28/2024 10:53 PM CDT - 01/30/2024 9:38 AM CDT Hospital Encounter [facility] [address] [place] [phone] Claus Herman MD Discharge Disposition: Home or Self Care 01/29/2024 Travel 01/28/2024 Hospital Encounter [facility] [address] [place] [phone] Claus Herman MD from Last 3 Months [...] CDT Oxygen Saturation 96% 06/19/2019 11:22 PM RN NIGHT Inhaled Oxygen Concentration - - Weight 60.9 kg (134 lb 3.2 oz) 01/29/2024 7:35 A M CDT Height 162.6 cm (5' 4) 06/19/2019 8:51 PM RN NIGHT Body Mass Index 23.04 06/19/2019 8:51 PM RN NIGHT Plan of Treatment Not on file Procedures [...] ? Study Date: ??01/30/2024 7:08am Pat. NO: ??[id number] ?Referring ??MD: ROSA BARBA Site: ? Nib Inspector: Vicky Alvarado RDMS : ??2000 ?Age: ?? [...] ?5 lb 15 ?oz EFW by ? [facility] ([id number]) Head / Face / Neck Biometry: Latex Foam Worker ?4.3 ? mm CM ? 6.3 ? [...] view. RVOT view. LVOT view. 3-vessel view. 0-nchume-johuknb view. Situs. Aortic arch view. Bicaval view. [...] DONAHUE Study Date: 01/30/2024 7:08am Pat. NO: [id number] Referring MD: ROSA BARBA Site: Nib Inspector: Vicky Alvarado RDMS : 2000 Age: 23 [...] EFW (lb,oz) 5 lb 15oz EFW by Hadlock([id number]) Head / Face / Neck Biometry: Latex Foam Worker 4.3mm CM 6.3mm Nasal bone 10.4mm ANATOMY ----- The following structures appear normal: Head / Neck Cranium. Head size. Head shape.Lateral ventricles. Choroid plexus. Midline falx. Cavum septi pellucidi.Cerebellum. Cisterna magna. Parenchyma. Thalami. Vermis. Neck. Face Lips. Profile. Nose. Maxilla.Mandible. Orbits. Lens. Heart / Thorax 4-chamber view. RVOT view. LVOT view.3-vessel view. 4-ebptjw-lawtxgn view. Situs. Aortic arch view. Bicavalview. Ductal [...] volume appeared normal. Jessa Zacarias MD [facility] US ORDERABLE S * (ABNORMAL) CBC with platelets (01/29/2024 10:06 AM CDT) [facility] Signature WBC Count 9.9 4.0 - [...] LABORATORY [facility] Acute Care Lab [address] [place] [address], Room [address] * Adult Type and Screen (01/29/2024 12:56 AM CDT) ABO/RH(D) O POS 01/29/2024 12:34 AM CDT UR BLOOD BANK Antibody Screen Negative Negative 01/29/2024 12:34 AM CDT UR BLOOD BANK SPECIMEN EXPIRATION DATE [id number] 01/29/2024 12:34 AM CDT UR BLOOD BANK Blood STRUCTURE OF RIGHT UPPER LIMB / Unknown Venipuncture / Unknown 01/29/2024 12:56 AM CDT 01/29/2024 1:02 AM CDT Lev Alejandro MD LAB - BLOOD BANK RICHARD T ORDER UR BLOOD BANK [facility] Blood Components Lab [address] [place] [address], Room [address] * (ABNORMAL) UA with Microscopic reflex [...] 01/29/2024 1:05 AM CDT UR LABORATORY Specific [place] Urine 1.009 1.003 - 1.035 01/29/2024 1:05 [...] LABORATORY [facility] Acute [facility] Lab [address] [facility] [address] [place] [address] * Chlamydia trachomatis/Neisseria gonorrhoeae by PCR (01/29/2024 12:38 AM CDT) Pathologist [facility] Chlamydia Trachomatis Negative Negative 01/29/2024 11:09 AM CDT [facility] Comment: Negative for C. trachomatis rRNA by cocoa bean cleaner mediated amplification. A negative result by cocoa bean cleaner mediated amplification does not preclude the presence of infection because results are dependent on proper and adequate collection, absence of inhibitors and sufficient rRNA to be detected. Neisseria gonorrhoeae Negative Negative 01/29/2024 11:09 AM CDT [facility] Comment:Negative for N. gono rrhoeae rRNA by cocoa bean cleaner mediated amplification. A negative result by cocoa bean cleaner mediated amplification does not preclude the presence [...] [facility] Inf[facility] Diseases Di[facility] Lab [address] [facility], [address] [place] [address] * (ABNORMAL) Wet prep (01/29/2024 12:38 AM CDT) Pathologist [facility] Trichomonas Absent Absent JET 01/29/2024 1:01 AM [...] [facility] Lab [address] [facility], [address] [place] [address], [facility] * Group B strep PCR [...] LABORATORY - 01/29/2024 8:46 PM CDT The CepIn[employer] Things[employer] Xpert GBS LB Assay, performed on the [employer]?? [employer], is a qualitative in vitro diagnostic [...] settings. The device is not intended for myndd-jq-zmei use. Lev Alejandro MD LAB - MICRO GENERAL ORDERABLES [facility] Inf. Diseases Diag. Lab [address] [facility], [address] [place] [address], [facility] * HIV-1 Antibody (External Result) (07/27/2023 12:27 AM CDT) HIV 1&2 Antibody (External) Negative Nonreactive [facility] 07/27/2023 12:2 7 AM CDT Patient Reported LAB - HIM EXTERNAL R ESULT [address] [address], [facility] [phone] from Last 3 Months or Most Recently Relevant to Health Maintenance Advance Directives For more information, please contact: [phone] * Full Code (Latest Code Status on File) Date Activated Date Inactivated Comments 01/29/2024 12:33 AM 01/30/2024 11:44 AM All basic and advanced life-sustaining interventions are performed as appropriate Question Answer Comments Code status determined by: Discussion with camilo nt/ legal decision maker Care Teams Observer Electrical Prospecting Relationship Specialty Start Date End Date Shalonda Barrett MD [facility] [address] [place] [address] PCP - General Family Medicine 01/29/24
--- OUTSIDE RECORDS SUMMARY | 2024-02-23 14:46 | XMS_ITS | Encounter Summary ---
Author Organization [facility] Address [facility] [place] [address] Care Team Providers Care Inspector Process Name Role Phone No Ref-Primary, Physician Primary Care Provider Shalonda Barrett MD Primary Care Provider + Reason for Visit * Reason Comments Labor * Auth/Cert (Routine) Specialty Diagnoses / Procedures Referred By Contac t Referred To Contact parboiler Diagnoses Maternity*TONYA: * Labor uterine contractions Ur [facility] [address] [place] [address] Referral ID Status Reason Start Date Expiration Date Visits Re quested Visits Authorized [id number] 1 1 Encounter Details Date Type Department Care Team (Latest Contact Info) Description 01/28/2024 10:53 PM CDT - 01/30/2024 9:38 AM CDT Hospital Encounter [facility] [address] [place] [address] Claus Herman MD [address] [place] [address] Discharge Disposition: Home or Self [...] in an abandoned building, in an overnight [place] [facility] [place], or couch-surfing.) Yes 01/28/2024 Are you worried [...] Mass Index 23.04 06/19/2019 8:51 PM RN TRANSITION documented in this encounter Discharge Summaries * Jessa Zacarias MD - 01/30/2024 9:28 AM CDT [facility] Discharge Summary Sid Garcia Age: [...] presents as a transfer of care from [facility] with concerns for labor. She started [...] swelling, generalized unwell feeling Jessa Zacarias MD Idea Worker PGY-3 01/30/24 9:31 AM Associated attestation [...] Where can you learn more? Go to https://www.[employer].net/patiented Enter N531 in the search box to learn more about Learning About When to Call Your Doctor During (After 20 Weeks). Current as of: November 15, 2022 Content Version: 14.1 ?? [employer]. Care instructions adapted under license by your healthcare professional. If you have questions about a medical condition or this instruction, always ask your healthcare professional. [employer], [employer] disclaims any warranty or liability for your [...] bpm, mod variability, accelerations present, no decelerations [place]: 0 contractions/10 minutes Imaging: [facility] US COMPREHENSIVE (01/30/24) IMPRESSION 1. Thomas at [...] concern for labor as a ROBER form [place]. Her has been notable for: - History of delivery (failure to progress, second stage) - H/o hemorrhage requiring blood transfusion, Bakri balloon - Anemia - GCT elevated, normal GTT - Factor V Leiden heterozygote - Rubella equivocal - Migraines # C/f Labor Presented with painful uterine contractions to [place]. Workup at outside hospital concerning for possible increasing cervical effacement so transfer was recommended for higher level NICU cares. At presentation to [facility], infectious workup unremarkable including [...] and discussed with Dr. Claus Zacarias MD Idea Worker PGY-3 01/30/24 8:42 AM Associated attestation - Claus Herman MD - 01/30/2024 11:30 AM CDT Physician Attestation I saw this patient with the resident and agree with the resident/fellow's findings and plan of careas documented in the note. Weems findings: Patient is a 23 YO at 34w6d who presented as transport from [facility] [place] 01/28/2024 for concerns of threatened labor in the setting of late period and history of LTCS desiring TOLAC. Since admission the cervix remains unchanged and the patient is noting less contractions today. She has taken no further nifedipine. The fetus is reassuring on FHR monitoring. US today is reassuring and normal. The patient is comfortable with discharge to follow up with [facility] OB team. 25 MINUTES SPENT BY ME [...] bpm, mod variability, accelerations present, no decelerations [place]: 2 contractions/10 minutes Assessment/Plan Abrial Douglas Garcia is a 23 year old @ 34w5d by LMP c/w 8w1d US, admitted with concern for labor as a ROBER form [place]. Her has been notable for: - History of delivery (failure to progress, second stage) - H/o hemorrhage requiring blood transfusion, Bakri balloon - Anemia - GCT elevated, normal GTT - Factor V Leiden heterozygote - Rubella equivocal - Migraines # C/f Labor Presented with painful uterine contractions to [place]. Workup at outside hospital concerning for possible increasing cervical effacement so transfer was recommended for higher level NICU cares. At presentation to [facility], infectious workup unremarkable including [...] vaccine # Inpatient Management - up ad alisosn - Regular diet - SCD's and prophylactic [...] and discussed with Dr. Claus Zacarias MD Idea Worker PGY-3 01/29/24 11:02 AM Associated attestation - Claus Hermna MD - 01/29/2024 11:39 AM CDT Physician Attestation I saw this patient with the resident and agree with the resident/fellow's findings and plan of careas documented in the note. Weems findings: Patient is a 23 YO at 34w5d who presented as transport from [facility] [place] last evening for concerns of threatened labor [...] OK for OP management and delivery at [place] after 35 weeks. Likely discontinue tomorrow am. [...] on exam, still posterior. Lev Alejandro MD STREETSWEEPER OPERATOR PGY-3 01/29/2024 7:15 AM documented in this encounter H&P Notes * Lev Alejandro MD - 01/28/2024 11:34 PM CDT Images from the original note were not included. Antepartum History and Physical January 29, 2024 Sid Garcia [id number] HPI Sid Garcia is a 23 year old at 34w4d by LMP c/w 8w1d US who presents as a transfer ofcare from [facility] with concerns for labor. She started to notice back pain and frequent abdominal tightening this morning (01/27). She thought it was [facility] contractions so continued with her planned [...] Physical Activity: Sufficiently Active (08/17/2023) Received from [facility] Exercise Vital Sign Days of Exercise per Week: 5 days Minutes of Exercise per Session: 60 min Stress: No Stress Concern Present (07/14/2022) Received from [facility] [place] [employer] [facility] Occupational [employer] - Occupational Stress Questionnaire Feeling of Stress : Only a little Social Connections: Socially Isolated (07/14/2022) Received from [facility] Social Connection and Isolation Panel [NHANES] Frequency of Communication with Friends and Family: More than three times a week Frequency of Social Gatherings with Friends and Family: Once a week Attends [employer]ish Services: Never Active Member of Clubs or [...] 150 bpm, moderate variability, accelerations present, nodecelerations [place]: 3-4 contractions in 10 minutes Impression: Category [...] Ketones Urine 100 (A) Negative mg/dL Specific [place] Urine 1.009 1.003 - 1.035 Blood Urine [...] Abnormality Status --------- ------ Adult Type and Screen[[id number]] Final result Please view results for these tests on the individual orders. Adult Type and Screen Result Value Ref Range ABO/RH(D) O POS Antibody Screen Negative Negative SPECIMEN EXPIRATION DATE [id number] Imaging Not available in system. Assessment/Plan 23 year old at 34w5d by LMP consistent with 8w1d US, transferred to [facility] for NICU cares in [...] course - BMZ: s/p first dose at [place] 01/27 at 2108 - Magnesium not indicated [...] supervision of Dr. Herman. Lev Alejandro MD STREETSWEEPER OPERATOR PGY-3 01/29/2024 4:34 AM Associated attestation - Claus Herman MD - 01/29/2024 11:33 AM CDT Physician Attestation I did not see the patient on this date. [facility] [...] PM CDT Patient arrived via ambulance from [facility] at 2255 and admitted to room [...] Procedure Name Priority Date/Time Associated Diagnosis Comments [facility] US COMPREHENSIVE SINGLE Routine 01/30/2024 8:25 [...] ? Study Date: ??01/30/2024 7:08am Pat. NO: ??[id number] ?Referring ??MD: ROSA BARBA Site: ? Lab Systems Analyst: Vicky Alvarado RDMS : ??2000 ?Age: ?? 23 ----- INDICATION ----- Inpatient. labor. METHOD ----- [facility] ANTEPARTUM inpatient exam. Transabdominal [...] lb 15 ?oz EFW by ? Hadlock ([id number]) Head / Face / Neck Biometry: Health Education Assistant ?4.3 ? mm CM ? 6.3 ? [...] view. RVOT view. LVOT view. 3-vessel view. 7-cozdur-pgpocpg view. Situs. Aortic arch view. Bicaval view. [...] GARCIA Study Date: 01/30/2024 7:08am Pat. NO: [id number] Referring MD: ROSA BARBA Site: Lab Systems Analyst: Vicky Alvarado RDMS : 2000 Age: 23 ----- INDICATION ----- Inpatient. labor. METHOD ----- [facility] ANTEPARTUM inpatient exam. Transabdominal [...] EFW (lb,oz) 5 lb 15oz EFW by Hadlock([id number]) Head / Face / Neck Biometry: Health Education Assistant 4.3mm CM 6.3mm Nasal bone 10.4mm ANATOMY ----- The following structures appear normal: Head / Neck Cranium. Head size. Head shape.Lateral ventricles. Choroid plexus. Midline falx. Cavum septi pellucidi.Cerebellum. Cisterna magna. Parenchyma. Thalami. Vermis. Neck. Face Lips. Profile. Nose. Maxilla.Mandible. Orbits. Lens. Heart / Thorax 4-chamber view. RVOT view. LVOT view.3-vessel view. 0-bvmvcj-uvaqylf view. Situs. Aortic arch view. Bicavalview. Ductal [...] fluid volume appeared normal. Jessa Zacarias MD [facility] US ORDERABLE S * (ABNORMAL) CBC with platelets (01/29/2024 10:06 AM CDT) [facility] Signature WBC Count 9.9 4.0 - [...] [facility], [address] [place] [phone] * Adult Type and Screen (01/29/2024 12:56 AM CDT) ABO/RH(D) O POS 01/29/2024 12:34 AM CDT UR BLOOD BANK Antibody Screen Negative Negative 01/29/2024 12:34 AM CDT UR BLOOD BANK SPECIMEN EXPIRATION DATE [id number] 01/29/2024 12:34 AM CDT UR BLOOD BANK Blood STRUCTURE OF RIGHT UPPER LIMB / Unknown Venipuncture / Unknown 01/29/2024 12:56 AM CDT 01/29/2024 1:02 AM CDT Lev Alejandro MD LAB - BLOOD BANK RICHARD T ORDER Performing Organization Address [facility]/ZIP Co de Phone Number UR BLOOD BANK [facility] Blood Components Lab [address] [place] [address], Room [place] [phone] * (ABNORMAL) UA with Microscopic reflex to [...] 01/29/2024 1:05 AM CDT UR LABORATORY Specific [place] Urine 1.009 1.003 - 1.035 01/29/2024 1:05 [...] [facility] Acute Care Lab [address] [facility], [address] [place] [address], [facility] * Chlamydia trachomatis/Neisseria gonorrhoeae by PCR (01/29/2024 12:38 AM CDT) Chlamydia Trachomatis Negative Negative 01/29/2024 11:09 AM CDT [facility] Comment: Negative for C. trachomatis rRNA by fiber optics engineer mediated amplification. A negative result by fiber optics engineer mediated amplification does not preclude the presence of infection because results are dependent on proper and adequate collection, absence of inhibitors and sufficient rRNA to be detected. Neisseria gonorrhoeae Negative Negative 01/29/2024 11:09 AM CDT [facility] Comment:Negative for N. gono rrhoeae rRNA by fiber optics engineer mediated amplification. A negative result by fiber optics engineer mediated amplification does not preclude the presence of C. trachomatis infection because results are dependent on proper and adequate collection, absence of inhibitors and sufficient rRNA to be detected. Swab CERVIX UTERI STRUCTURE / Unknown Non-blood Collection / Unknown 01/29/2024 12:38 AM CDT 01/29/2024 12:45 AM CDT Lev Alejandro MD LAB - MICRO GENERAL ORDERABLES [facility] Inf. Diseases Diag. Lab [address] [facility], [address] [place] [address], [facility] * (ABNORMAL) Wet prep (01/29/2024 12:38 AM [...] LAB - MICRO GENERAL ORDERABLES UR LABORATORY [facility] Acute Care Lab [address] [facility], [address] [place] [address], [facility] * Group B strep PCR (01/29/2024 12:38 [...] LABORATORY - 01/29/2024 8:46 PM CDT The Dime Xpert GBS LB Assay, performed on the [employer]?? [employer], is a qualitative in vitro diagnostic [...] settings. The device is not intended for eeuqh-no-wyxv use. Lev Alejandro MD LAB - MICRO GENERAL ORDERABLES [facility] Inf. Diseases Diag. Lab [address] [facility], [address] [place] [address] * HIV-1 Antibody (External Result) (07/27/2023 12:27 AM CDT) HIV 1&2 Antibody (External) Negative Nonreactive [facility] 07/27/2023 12:2 7 AM CDT Patient Reported LAB - HIM EXTERNAL R ESULT [facility] [address] [place], [place] [phone] [place] [address] * Hepatitis B Surface Antigen (External Result) (07/27/2023 12:27 AM CDT) Hepatitis B Surface Antigen (External) Negative [facility] 07/27/2023 12:2 7 AM CDT Patient Reported LAB - HIM EXTERNAL R ESULT [facility] [address] [place] [address], [facility] [phone] * Rubella Antibody IgG (External Result) (07/27/2023 12:27 AM CDT) Rubella Antibody IgG (External) Immune Nonreactive [facility] 07/27/2023 12:2 7 AM CDT Patient Reported LAB - HIM EXTERNAL R ESULT Performing Organization Address City/[facility]/ZIP Co de Phone Number [facility] [address] [place] [address], [facility] [phone] documented in this encounter Visit Diagnoses Diagnosis [...] Antepartum 0109 (Not Given - Provider: Tristian Rogres RN - Reason: IV Infusing)0855 (Not Given [...] Antepartum documented in this encounter Care Teams Inspector Process Relationship Specialty Start Date End Date No Ref-Primary, Physician PCP - General 06/19/19 01/28/24 Shalonda Barrett MD [facility] [address] [place] [address] PCP - General Family Medicine 01/29/24 documented as of this encounter
--- OUTSIDE RECORDS SUMMARY | 2024-02-23 14:46 | XMS_ITS ---
Author Organization [facility] Address [address] [place] [address] Care Team Providers Care Terrazzo Grinder Name Role Phone Unavailable Unavailable Unavailable Surgery Details Not on file Complications Check Surgery Details section. Procedure Estimated Blood Loss Check Surgery Details section. Procedure Findings Check Surgery Details section. Procedure Specimens Taken Check Surgery Details section.
--- OUTSIDE RECORDS SUMMARY | 2024-02-23 14:46 | XMS_ITS | Clinical Summary ---
Author Organization [facility] Address [address] [place] [address] Care Team Providers Care Mobile Home Mechanic Name Role Phone Elsewhere, Pcp Primary Care Provider Unavailabl e Source Comments Patient records contain information from all sites at [facility]. For routine questions regarding patient records, call [phone] during business hours, M-F 8:00 AM - 5:00 PM Central Time. Record requests for emergency care only can be directed to [phone] at any time.[facility] Allergies Active Allergy Reactions Criticality Noted Date Comments Ondansetron GI intolerance 06/08/2022 ODT and liquid forms only, cause n/v. Tolerates IV and oral pill formulations. Medications scezsje-Yc-jzsl-FA (VINATE ONE) 60 mg iron-1 mg per [...] CDT - 01/11/2024 6:48 PM CDT [facility] [address] [place] [address] Alvino Christianson, PTerryC., P.A. Pharyngitis Acute (Primary Dx) Discharge Disposition: Home or Self Care 12/06/2023 6:50 PM CDT - 12/06/2023 7:30 PM CDT [facility] [address] [place] [phone] Benny Cuevas M.D. Migraine Headache (Primary Dx); 27 Weeks Gestation (HCC) Discharge Disposition: Home or Self Care 12/06/2023 6:30 PM CDT Office Visit Urgent Care, [facility], in [place], [place] [address] [place] [address] Ana Laura Block P.A.-C., P.A. Procedure And [...] In the past 12 months has e [employer], [employer], or water [employer] threatened to shut off services in your [...] medical care, and heating? Somewhat hard 07/14/2022 [facility] - [...] living situation today? I have a [facility] place to live 08/17/2023 Education Answer Date [...] M ICROBIOLOGY - GENERAL ORDERABLES Final Result [facility] [address] [place] [address], [place] NPRG [facility] [address] [place] [address] from Last 3 Months Insurance [employer] Care Teams Mobile Home Mechanic Relationship Specialty Start Date End Date Elsewhere, Pcp PCP - General 08/30/21
--- OUTSIDE RECORDS SUMMARY | 2024-02-23 14:46 | XMS_ITS | Encounter Summary ---
Author Organization [facility] Address [address] [place] [address] Care Team Providers Care Parts Driver Name Role Phone Elsewhere, Pcp Primary Care Provider Unavailabl e Reason for Visit * Reason Comments Sore Throat Pt presents w/throat pain onset last night, denies cough and fever. Encounter Details Date Type Department Care Team (Late st Contact Info) Description 01/11/2024 5:07 PM CDT - 01/11/2024 6:48 PM CDT Emergency [facility] [address] [place] [address] Alvino Christianson, PDedraA.-Amena., P.A. [address] [phone] Pharyngitis Acute (Primary Dx) Discharge Disposition: Home or Self Care Social History Tobacco Use Types Packs/Day Years Used Date Smoking Tobacco: Never Passive Smoke Exposure: Never Smokeless Tobacco: Never Alcohol Use Standard Drinks/Week Comments No 0 (1 standard drink = 0.6 oz pur e alcohol) [facility] Utilities Answer Date Recorded In [...] often do you attend chur ch or restorationist services? Never 07/14/2022 Do you belong to any clubs o r organizations such as bahai groups, unions, fraternal or athletic groups, or [...] heating? Somewhat hard 07/14/2022 [facility] [place] of Occupat ional Health - Occupational Stress [...] your living situation today? I have a [facility] place to live 08/17/2023 Education Answer [...] HOURS NEEDED FOR NAUSEA AND VOMITING 07/27/2023 nusefow-Zn-qfhh-FA (VINATE ONE) 60 mg iron-1 mg per [...] M ICROBIOLOGY - GENERAL ORDERABLES Final Result [facility] [address] [place] [address], [facility] NPRG [facility] [address] [place] [address] documented in this encounter Visit Diagnoses Diagnosis Pharyngitis Acute- Primary documented in this encounter Care Teams Parts Driver Relationship Specialty Start Date End Date Elsewhere, Pcp PCP - General 08/30/21 documented as of this encounter
--- OUTSIDE RECORDS SUMMARY | 2024-02-23 14:46 | XMS_ITS | Clinical Summary ---
Author Organization [place] Address [address] [place] [address]. [place] [address] Care Team Providers Care Gang Sawyer Name Role Phone Shalonda Barrett MD Primary [...] - 01/30/2024 9:38 AM CDT Hospital Encounter [facility] [address] [facility] [place] [address] Claus Herman MD Discharge Disposition: Home or Self Care 01/28/2024 Hospital Encounter Jean Marie Islas [facility] [address] [facility] [place] [address] Claus Herman MD from Last 3 [...] in an abandoned building, in an overnight intermediate, or couch-surfing.) Yes 01/28/2024 Are you worried [...] CDT Oxygen Saturation 96% 06/19/2019 11:22 PM MEDIATOR Inhaled Oxygen Concentration - - Weight 60.9 kg (134 lb 3.2 oz) 01/29/2024 7:35 A M CDT Height 162.6 cm (5' 4) 06/19/2019 8:51 PM MEDIATOR Body Mass Index 23.04 06/19/2019 8:51 PM MEDIATOR Plan of Treatment Health Maintenance Due Date [...] ? Study Date: ??01/30/2024 7:08am Pat. NO: ??[id number] ?Referring ??MD: ROSA BARBA Site: ? Medical Director Occupational Health: Vicky Alvarado RDMS : ??2000 ?Age: ?? 23 ----- INDICATION ----- Inpatient. labor. METHOD ----- [facility] ANTEPARTUM inpatient exam. Transabdominal ultrasound examination. [...] lb 15 ?oz EFW by ? Hadlock ([id number]) Head / Face / Neck Biometry: Sheet Metal Insulator ?4.3 ? mm CM ? 6.3 ? [...] view. RVOT view. LVOT view. 3-vessel view. 2-acctxm-cvtqzup view. Situs. Aortic arch view. Bicaval view. [...] GARCIA Study Date: 01/30/2024 7:08am Pat. NO: [id number] Referring MD: ROSA BARBA Site: Medical Director Occupational Health: Vicky Alvarado RDMS : 2000 Age: 23 ----- INDICATION ----- Inpatient. labor. METHOD ----- [facility] ANTEPARTUM inpatient exam. Transabdominal ultrasound examination.View: [...] EFW (lb,oz) 5 lb 15oz EFW by Hadlock([id number]) Head / Face / Neck Biometry: Sheet Metal Insulator 4.3mm CM 6.3mm Nasal bone 10.4mm ANATOMY ----- The following structures appear normal: Head / Neck Cranium. Head size. Head shape.Lateral ventricles. Choroid plexus. Midline falx. Cavum septi pellucidi.Cerebellum. Cisterna magna. Parenchyma. Thalami. Vermis. Neck. Face Lips. Profile. Nose. Maxilla.Mandible. Orbits. Lens. Heart / Thorax 4-chamber view. RVOT view. LVOT view.3-vessel view. 2-xjfxaz-dcugjau view. Situs. Aortic arch view. Bicavalview. Ductal [...] CBC with platelets (01/29/2024 10:06 AM CDT) [facility] Signature WBC Count 9.9 4.0 - [...] LAB - BLOOD ORDERABL ES UR LABORATORY [facility] Lab [address] [facility], [address] * Adult Type and Screen (01/29/2024 12:56 AM CDT) ABO/RH(D) O POS 01/29/2024 12:34 AM CDT UR BLOOD BANK Antibody Screen Negative Negative 01/29/2024 12:34 AM CDT UR BLOOD BANK SPECIMEN EXPIRATION DATE [id number] 01/29/2024 12:34 AM CDT UR BLOOD BANK Blood STRUCTURE OF RIGHT UPPER LIMB / Unknown Venipuncture / Unknown 01/29/2024 12:56 AM CDT 01/29/2024 1:02 AM CDT Lev Alejandro MD LAB - BLOOD BANK RICHARD T ORDER Performing Organization Address City/[facility]/ZIP Co de Phone Number UR BLOOD BANK [facility] Blood Components Lab [address] [place] [address], [address] * (ABNORMAL) UA with Microscopic reflex [...] 01/29/2024 1:05 AM CDT UR LABORATORY Specific [place] Urine 1.009 1.003 - 1.035 01/29/2024 1:05 [...] UR LABORATORY [facility] Acute [facility] Lab [address] [place] [address], Room [address] [place] [phone] [place] * Chlamydia trachomatis/Neisseria gonorrhoeae by PCR (01/29/2024 12:38 AM CDT) Chlamydia Trachomatis Negative Negative 01/29/2024 11:09 AM CDT [facility] Comment: Negative for C. trachomatis rRNA by automatic punch press operator mediated amplification. A negative result by automatic punch press operator mediated amplification does not preclude the presence of infection because results are dependent on proper and adequate collection, absence of inhibitors and sufficient rRNA to be detected. Neisseria gonorrhoeae Negative Negative 01/29/2024 11:09 AM CDT [facility] Comment:Negative for N. gono rrhoeae rRNA by automatic punch press operator mediated amplification. A negative result by automatic punch press operator mediated amplification does not preclude the presence of C. trachomatis infection because results are dependent on proper and adequate collection, absence of inhibitors and sufficient rRNA to be detected. Swab CERVIX UTERI STRUCTURE / Unknown Non-blood Collection / Unknown 01/29/2024 12:38 AM CDT 01/29/2024 12:45 AM CDT Lev Alejandro MD LAB - MICRO GENERAL ORDERABLES [facility] Inf. Diseases Diag. Lab [address] [facility], [address] [place] [address], [facility] * (ABNORMAL) Wet prep (01/29/2024 12:38 AM CDT) Trichomonas Absent Absent JET 01/29/2024 1:01 AM CDT UR LABORATORY Yeast Absent Absent JET 01/29/2024 1:01 AM CDT UR LABORATORY Clue Cells Absent Absent EJT 01/29/2024 1:01 AM CDT UR LABORATORY WBCs/high power field 1+(A) None JET 01/29/2024 1:01 AM CDT UR LABORATORY Swab VAGINAL STRUCTURE / Unknown Non-blood Collection / Unknown 01/29/2024 12:38 AM CDT 01/29/2024 12:46 AM CDT Lev Alejandro MD LAB - MICRO GENERAL ORDERABLES Performing Organization Address City/[facility]/ZIP Co de Phone Number UR LABORATORY [facility] Acute Care Lab [address] [facility], [address] [place] [address], [facility] * Group B strep PCR [...] Xpert GBS LB Assay, performed on the [employer], is a qualitative in vitro [...] settings. The device is not intended for nnlsi-af-hvtq use. Lev Alejandro MD LAB - MICRO GENERAL ORDERABLES [facility] Inf. Diseases Diag. Lab [address] [facility], [address] [place] [phone] [place] * HIV-1 Antibody (External Result) (07/27/2023 12:27 AM CDT) HIV 1&2 Antibody (External) Negative Nonreactive [facility] 07/27/2023 12:2 7 AM CDT Patient Reported LAB - HIM EXTERNAL R ESULT [facility] [address] [phone] from Last 3 Months or Most Recently Relevant to Health Maintenance Advance Directives For more information, please contact: [phone] * Full Code (Latest Code Status on File) Date Activated Date Inactivated Comments 01/29/2024 12:33 AM 01/30/2024 11:44 AM All basic and advanced life-sustaining interventions are performed as appropriate Question Answer Comments Code status determined by: Discussion with froylane nt/ legal decision maker Care Teams Gang Sawyer Relationship Specialty Start Date End Date Shalonda Barrett MD [facility] [address] [place] [address] PCP - General Family Medicine 01/29/24
--- OUTSIDE RECORDS SUMMARY | 2024-02-23 14:46 | XMS_ITS | Referral Summary ---
Author Organization [facility] Address [address] [place] [address] Care Team Providers Care Vascular Surgeon Name Role Phone Elsewhere, Pcp Primary Care Provider Unavailabl e Source Comments Patient records contain information from all sites at [facility]. For routine questions regarding patient records, call [phone] during business hours, M-F 8:00 AM - 5:00 PM Central Time. Record requests for emergency care only can be directed to [phone] at any time.[facility] Encounters Date Type Department Care Team Description 01/11/2024 5:07 PM CDT - 01/11/2024 6:48 PM CDT Emergency [facility] [address] [place] [phone] Alvino Christianson P.A.-C., P.A. Pharyngitis Acute (Primary Dx) Discharge Disposition: Home or Self Care 12/06/2023 6:50 PM CDT - 12/06/2023 7:30 PM CDT Emergency [facility] [address] [place] [phone] Benny Cuevas M.D. Migraine Headache (Primary Dx); 27 Weeks Gestation (HCC) Discharge Disposition: Home or Self Care 12/06/2023 6:30 PM CDT Office Visit Urgent Care, [facility], in [place], [place] [address] [place] [phone] Ana Laura Block P.A.-C., P.A. Procedure And Treatment Not Carried Out Due To Patient Leaving Prior To Being Seen By Health Care Provider (Primary Dx) Discharge Disposition: Home or Self Care from Last 3 Months Allergies Active Allergy Reactions Criticality Noted Date Comments Ondansetron GI intolerance 06/08/2022 ODT and liquid forms only, cause n/v. Tolerates IV and oral pill formulations. Medications nbemlzp-Rz-ihmh-FA (VINATE ONE) 60 mg iron-1 mg per [...] In the past 12 months has e Sidewalk, [employer], or water [employer] threatened to shut off services in your [...] How often do you attend chur or religion services? Never 07/14/2022 Do you [...] medical care, and heating? Somewhat hard 07/14/2022 [facility] of Occupat ional Health - Occupational Stress [...] your living situation today? [facility] 08/17/2023 Education Answer [...] M ICROBIOLOGY - GENERAL ORDERABLES Final Result [facility] [address] [place] [address], [place] NPRG [facility] [address] [place] [address] from Last 3 Months Insurance [employer] Care Teams Vascular Surgeon Relationship Specialty Start Date End Date Elsewhere, Pcp PCP - General 08/30/21
--- OUTSIDE RECORDS SUMMARY | 2024-02-23 14:46 | XMS_ITS ---
Author Organization [place] Address [address] [place] [address] Care Team Providers Care Flooring Machine Feeder Name Role Phone Shalonda Barrett MD Primary Care Provider + Transitional Care Management Status:Closed (Closed) Start date:01/31/2024 Enrollment date:01/31/2024 End date:02/14/2024 Close reason:Goals met Continued Care and Services Coordination
--- OUTSIDE RECORDS SUMMARY | 2024-02-23 14:46 | XMS_ITS | Encounter Summary ---
Author Organization [place] Address [facility] [place] [address] Care Team Providers Care Cupola Melter Name Role Phone No Ref-Primary, Physician Primary Care Provider Shalonda Barrett MD Primary Care Provider + Reason for Visit * Auth/Cert (Routine) Specialty Diagnoses / Procedures Referred By Berkley lubin Referred To Contact solar sales energy advisor Diagnoses Maternity*TONYA: * Labor uterine contractions Ur [facility] [address] [place] [address] Referral ID Status Reason Start Date Expiration Date Visits Re quested Visits Authorized [id number] 1 1 Encounter Details Date Type Department Care Team (Late st Contact Info) Description 01/28/2024 Hospital Encounter [facility] [address] [place] [address] Claus Herman MD [address] [facility] [address] [place] [address] Social History Tobacco Use Types [...] on filedocumented in this encounter Care Teams Cupola Melter Relationship Specialty Start Date End Date No Ref-Primary, Physician PCP - General 06/19/19 01/28/24 Shalonda Barrett MD [address] [address] PCP - General Family Medicine 01/29/24 documented as of this encounter
--- OUTSIDE RECORDS SUMMARY | 2024-02-23 14:46 | XMS_ITS | Encounter Summary ---
Author Organization [place] Address [address] [place] [address]. [place] [address] Care Team Providers Care Hotel Superintendent Name Role Phone Shalonda Barrett MD Primary [...] in an abandoned building, in an overnight group home, or couch-surfing.) Yes 01/28/2024 Are you [...] on filedocumented in this encounter Care Teams Hotel Superintendent Relationship Specialty Start Date End Date Shalonda Barrett MD [facility] & [address] [address] PCP - General Family Medicine 01/29/24 documented as of this encounter
--- OUTSIDE RECORDS SUMMARY | 2024-02-23 14:47 | XMS_ITS | Encounter Summary ---
Author Organization [facility] Address [address] [place] [address] Care Team Providers Care Flag Signaler Name Role Phone Elsewhere, Pcp Primary Care Provider Unavailabl e Encounter Details Date Type Department Care Team (Late st Contact Info) Description 12/06/2023 6:30 PM CDT Office Visit Urgent Care, [facility], in [place], [place] [address] [place] [phone] Ana Laura Block, PDuc-Amena., P.A. [address] [place] [phone] Procedure And Treatment Not Carried Out Due To Patient Leaving Prior To Being Seen By Health Care Provider (Primary Dx) Discharge Disposition: Home or Self Care Social History Tobacco Use Types Packs/Day Years Used Date Smoking Tobacco: Never Passive Smoke Exposure: Never Smokeless Tobacco: Never Alcohol Use Standard Drinks/Week Comments No 0 (1 standard drink = 0.6 oz pur e alcohol) [facility] Utilities Answer Date Recorded In the past 12 months has [employer], gas, oil, or water [employer] threatened to shut off services in your [...] often do you attend chur ch or presybeterian services? Never 07/14/2022 Do you [...] medical care, and heating? Somewhat hard 07/14/2022 [facility] [place] of Occupat ional Health - Occupational Stress [...] living situation today? I have a [facility] place to live 08/17/2023 Education Answer [...] Primary documented in this encounter Care Teams Flag Signaler Relationship Specialty Start Date End Date Elsewhere, Pcp PCP - General 08/30/21 documented as of this encounter
--- OUTSIDE RECORDS SUMMARY | 2024-02-23 14:47 | XMS_ITS | Encounter Summary ---
Author Organization [facility] Address [address] [place] [address] Care Team Providers Care Bank Teller Machine Mechanic Name Role Phone Elsewhere, Pcp Primary [...] CDT Emergency [facility] [address] [place] [phone] Benny Cuevas M.D. [address] [place] [address] Migraine Headache (Primary Dx); 27 Weeks Gestation [...] How often do you attend chur or adventism services? Never 07/14/2022 Do you [...] heating? Somewhat hard 07/14/2022 [facility] [place] of Occupat ional Health - Occupational Stress [...] your living situation today? I have a [facility] place to live 08/17/2023 Education Answer [...] you are . Follow up with your siebel consultant if your headache isn't improving by tomorrow. * Attachments The following attachments cannot be sent through Care Everywhere. * Migraine Headache (Portuguese) documented in this encounter Medications at Time of Discharge docosahexaenoic acid 200 mg capsule Take by mouth. 07/27/2023 ferrous sulfate (IRON ORAL) Take by mouth. ondansetron ODT (ZOFRAN-ODT) 4 mg disintegrating tablet DISSOLVE ONE TABLET BY MOUTH EVERY 8 HOURS NEEDED FOR NAUSEA AND VOMITING 07/27/2023 cudksue-Cs-zhwc-FA (VINATE ONE) 60 mg iron-1 mg per [...] 1. Migraine Headache 2. 27 Weeks Gestation ([facility]) ED Disposition Discharge ED Prescriptions Medication Sig Dispense Start Date End Date Auth. Provider promethazine (Phenergan) 25 mg tablet Take 1 tablet (25 mg total) by mouth every 6 (six) hours as needed for nausea or vomiting (Headache). 15 tablet 12/06/2023 -- Benny Cuevas M.D. Notes are completed with voice recognition dictation software. Errors are generally corrected in real-time. Please message me via [employer] In Basket if you note any areas [...] R.N.) documented in this encounter Care Teams Bank Teller Machine Mechanic Relationship Specialty Start Date End Date Elsewhere, Pcp PCP - General 08/30/21 documented as of this encounter
--- OUTSIDE RECORDS SUMMARY | 2024-02-23 14:47 | XMS_ITS | Clinical Summary ---
Author Organization [facility] Address [place], [place] [address] Care Team Providers Care Publishing Editor Name Role Phone [facility] Primary Care Pr ovider Allergies No known [...] Relation Name Comments Bipolar disorder Brother 1 Creola Thyroid Disease Brother 1 Creola Good Health Brother 2 Desai Good Health [...] disease Relation Name Status Comments Brother 1 Creola Alive Brother 2 Desai Alive Father Maternal [...] Comments Blood Pressure 118/72 06/30/2022 2:37 PM TRAILER DRIVER Pulse 83 06/30/2022 2:37 PM TRAILER DRIVER Temperature 36.9 ??C (98.4 ??F) 12/25/2021 4:00 PM CD T Respiratory Rate 16 12/25/2021 4:00 PM CDT Oxygen Saturation 98% 12/25/2021 4:00 PM CDT Inhaled Oxygen Concentration - - Weight 52.2 kg (115 lb) 06/30/2022 2:37 PM TRAILER DRIVER Height 162.6 cm (5' 4) 12/25/2021 [...] Procedure Name Priority Date/Time Associated Diagnosis Comments PHYSICIAN ASSISTANT THIN PREP PAP SCREEN IMAGED Routine 03/24/2023 12:00 PM TRAILER DRIVER from Last 3 Months or Most Recently Relevant to Health Maintenance Results * PHYSICIAN ASSISTANT THIN PREP PAP SCREEN IMAGED (03/24/2023 12:00 PM TRAILER DRIVER) Case Report Gynecologic Cytology Report ? Case: [id number] ? Authorizing Provider: ??Harmony Colon ?Collected: ? 03/24/2023 1200 ? MD Lennie ? Ordering Location: ? [facility] ?Received: ?03/28/2023 1655 ? First Screen: ?Nino Dimas ? Specimen: ?PHYSICIAN ASSISTANT ThinPrep Vial Screening, Cervical ? 04/07/2023 1:26 PM TRAILER DRIVER [facility] INTERPRETATION/ RESULT NEGATIVE FOR INTRAEPITHELIAL LESION OR MALIGNANCY (NIL) (none) 04/07/2023 1:26 PM TRAILER DRIVER [facility] IMEN ADEQUACY Satisfactory for evaluation Endocervical component present 04/07/2023 1:26 PM TRAILER DRIVER [facility] HPV REQUEST HPV not requested 2022 1:26 PM TRAILER DRIVER [facility] Date of LMP 03/05/2023 04/07/2023 1:26 PM TRAILER DRIVER [facility] Abnormal Pap or [place] Bx in last 5 years No 04/07/2023 1:26 PM TRAILER DRIVER [facility] Menstrual Status Irregular Periods 04/07/2023 1:26 PM TRAILER DRIVER [facility] [place] Bx Done Today No 04/07/2023 1:26 PM TRAILER DRIVER [facility] Additional Information 04/07/2023 1:26 PM TRAILER DRIVER [facility] Comment: Interpreted at [facility] - [address] [place] [id number] Automated Review Successful 04/07/2023 1:26 PM TRAILER DRIVER [facility] Comment:Specimen processed s uccessfully by automated weasand trimmer device, ThinPrep Imaging System, [employer] Note The pap test is a screening technique, not a diagnostic procedure. It is used primarily to screen for squamous cancers and precursor lesions. Published studies have shown that it is subject to both false negative and false positive results. The pap test should not be used as the sole means to diagnose or exclude pre-malignant and malignant lesions. 04/07/2023 1:26 PM TRAILER DRIVER [facility] Other (Cervical) 03/24/2023 12:00 PM TRAILER DRIVER 03/28/2023 4:55 PM TRAILER DRIVER Harmony Colon MD PATHOLOGY/ CYTOLOGY [facility] GenJuice [facility] [address] [place] [address], [place] from Last 3 Months or Most Recently Relevant to Health Maintenance Care Teams Publishing Editor Relationship Specialty Start Date End Date Clinic, [facility] [address] [place] [address] PCP - General 12/19/23
== END 2024-02-23 14:44 | disposition home or self-care (01) ==
LOC: US 14:44
PROVIDERS: PCP Family Medicine; Visit Provider Advanced Practice Midwife
DX: O72.1 Other immediate postpartum hemorrhage (principal)
CPT/HCPCS: 76856

== ENCOUNTER 2024-02-27 11:05 | Outpatient (CLI) | payer MEDICAID, SELFPAY ==
--- OUTSIDE RECORDS SUMMARY | 2024-02-27 11:07 | XMS_ITS | Clinical Summary ---
Author Organization [facility] Address [address] [place] [address]. [place] [address] Care Team Providers Care Jai Alai Player Name Role Phone Shalonda Barrett MD Primary [...] - 01/30/2024 9:38 AM CDT Hospital Encounter [facility] [address] [facility] [phone] Claus Herman MD Discharge Disposition: Home or Self Care from Last 3 Months Social History Tobacco [...] CDT Oxygen Saturation 96% 06/19/2019 11:22 PM MANUAL ARTS TEACHER Inhaled Oxygen Concentration - - Weight 60.9 kg (134 lb 3.2 oz) 01/29/2024 7:35 A M CDT Height 162.6 cm (5' 4) 06/19/2019 8:51 PM MANUAL ARTS TEACHER Body Mass Index 23.04 06/19/2019 8:51 PM MANUAL ARTS TEACHER Plan of Treatment Health Maintenance Due Date [...] Procedure Name Priority Date/Time Associated Diagnosis Comments [facility] COMPREHENSIVE SINGLE Routine 01/30/2024 8:25 AM CDT [...] ? Study Date: ??01/30/2024 7:08am Pat. NO: ??[id number] ?Referring ??MD: ROSA BARBA Site: ? Margin Clerk: Vicky Alvarado RDMS : ??2000 ?Age: ?? 23 ----- INDICATION ----- Inpatient. labor. METHOD ----- [facility] ANTEPARTUM inpatient exam. Transabdominal ultrasound [...] lb 15 ?oz EFW by ? Hadlock ([id number]) Head / Face / Neck Biometry: Marine Designer ?4.3 ? mm CM ? 6.3 ? [...] view. RVOT view. LVOT view. 3-vessel view. 4-eaidvn-icrguyv view. Situs. Aortic arch view. Bicaval view. [...] GARCIA Study Date: 01/30/2024 7:08am Pat. NO: [id number] Referring MD: ROSA BARBA Site: Margin Clerk: Vicky Alvarado RDMS : 2000 Age: 23 ----- INDICATION ----- Inpatient. labor. METHOD ----- [facility]TE[facility] inpatient exam. Transabdominal ultrasound [...] EFW (lb,oz) 5 lb 15oz EFW by Hadlock([id number]) Head / Face / Neck Biometry: Marine Designer 4.3mm CM 6.3mm Nasal bone 10.4mm ANATOMY ----- The following structures appear normal: Head / Neck Cranium. Head size. Head shape.Lateral ventricles. Choroid plexus. Midline falx. Cavum septi pellucidi.Cerebellum. Cisterna magna. Parenchyma. Thalami. Vermis. Neck. Face Lips. Profile. Nose. Maxilla.Mandible. Orbits. Lens. Heart / Thorax 4-chamber view. RVOT view. LVOT view.3-vessel view. 4-fbpjol-scegbch view. Situs. Aortic arch view. Bicavalview. Ductal [...] volume appeared normal. Jessa Zacarias MD [facility] US ORDERABLE S * (ABNORMAL) CBC with platelets (01/29/2024 10:06 AM CDT) [facility] Signature WBC Count 9.9 4.0 - 11.0 [...] LAB - BLOOD ORDERABL ES UR LABORATORY [facility] Acute [facility] Lab [address] [place] [address], Room [address] * Adult Type and Screen (01/29/2024 12:56 AM CDT) ABO/RH(D) O POS 01/29/2024 12:34 AM CDT UR BLOOD BANK Antibody Screen Negative Negative 01/29/2024 12:34 AM CDT UR BLOOD BANK SPECIMEN EXPIRATION DATE [id number] 01/29/2024 12:34 AM CDT UR BLOOD BANK Blood STRUCTURE OF RIGHT UPPER LIMB / Unknown Venipuncture / Unknown 01/29/2024 12:56 AM CDT 01/29/2024 1:02 AM CDT Lev Alejandro MD LAB - BLOOD BANK RICHARD T ORDER Performing Organization Address City/[facility]/ZIP Co de Phone Number UR BLOOD BANK [facility] Blood Components Lab [address] [place] [address], Room [place] [id number] * (ABNORMAL) UA with Microscopic reflex [...] 01/29/2024 1:05 AM CDT UR LABORATORY Specific [place] Urine 1.009 1.003 - 1.035 01/29/2024 1:05 [...] LAB - URINE ORDERABL ES UR LABORATORY [facility] [address] [facility], [address] [place] [address] * Chlamydia trachomatis/Neisseria gonorrhoeae by PCR (01/29/2024 12:38 AM CDT) Chlamydia Trachomatis Negative Negative 01/29/2024 11:09 AM CDT [facility] Comment: Negative for C. trachomatis rRNA by office workforce planner mediated amplification. A negative result by office workforce planner mediated amplification does not preclude the presence of infection because results are dependent on proper and adequate collection, absence of inhibitors and sufficient rRNA to be detected. Neisseria gonorrhoeae Negative Negative 01/29/2024 11:09 AM CDT [facility] Comment:Negative for N. gono rrhoeae rRNA by office workforce planner mediated amplification. A negative result by office workforce planner mediated amplification does not preclude the presence of C. trachomatis infection because results are dependent on proper and adequate collection, absence of inhibitors and sufficient rRNA to be detected. Swab CERVIX UTERI STRUCTURE / Unknown Non-blood Collection / Unknown 01/29/2024 12:38 AM CDT 01/29/2024 12:45 AM CDT Lev Alejandro MD LAB - MICRO GENERAL ORDERABLES [facility] Inf. Diseases Diag. Lab [address] [facility], [address] [place] [address] * (ABNORMAL) Wet prep (01/29/2024 12:38 AM [...] LAB - MICRO GENERAL ORDERABLES UR LABORATORY [facility] Acute [facility] Lab [address] [facility], [address] [place] [address] * Group B strep PCR (01/29/2024 12:38 [...] LABORATORY - 01/29/2024 8:46 PM CDT The CepSupercircuitsid Xpert GBS LB Assay, performed on the [employer]?? Instrument Systems, is a qualitative in vitro [...] or monitor treatment for GBS infections. The CepSupercircuitsid Xpert GBS LB Assay is intended for use in hospital, reference or state laboratory settings. The device is not intended for tdjty-jq-jisp use. Lev Alejandro MD LAB - MICRO GENERAL ORDERABLES [facility] Inf. Diseases Diag. Lab [address] [facility], [address] [place] [address] * HIV-1 Antibody (External Result) (07/27/2023 12:27 AM CDT) HIV 1&2 Antibody (External) Negative Nonreactive [facility] 07/27/2023 12:2 7 AM CDT Patient Reported LAB - HIM EXTERNAL R ESULT [facility] [address] [place], [place] [address] [phone] from Last 3 Months or Most Recently Relevant to Health Maintenance Advance Directives For more information, please contact: [phone] * Full Code (Latest Code Status on File) Date Activated Date Inactivated Comments 01/29/2024 12:33 AM 01/30/2024 11:44 AM All basic and advanced life-sustaining interventions are performed as appropriate Question Answer Comments Code status determined by: Discussion with camilo nt/ legal decision maker Care Teams Jai Alai Player Relationship Specialty Start Date End Date Shalonda Barrett MD [facility] [address] [place] [address] PCP - General Family Medicine 01/29/24
--- OUTSIDE RECORDS SUMMARY | 2024-02-27 11:07 | XMS_ITS | Encounter Summary ---
Author Organization [facility] Address [address] [place] [address]. [place] [address] Care Team Providers Care Youth Accommodation Support Worker Name Role Phone Shalonda Barrett MD [...] in an abandoned building, in an overnight detention, or couch-surfing.) Yes 01/28/2024 Are you worried [...] on filedocumented in this encounter Care Teams Youth Accommodation Support Worker Relationship Specialty Start Date End Date Shalonda Barrett MD [facility] & [address] [address] PCP - General Family Medicine 01/29/24 documented as of this encounter
--- OUTSIDE RECORDS SUMMARY | 2024-02-27 11:07 | XMS_ITS | Referral Summary ---
Author Organization [facility] Address [address] [place] [address]. [place] [address] Care Team Providers Care Operations Research Group Manager Name Role Phone Shalonda Barrett MD Primary Care Provider + Encounters Date Type Department Care Team Description 01/28/2024 10:53 PM CDT - 01/30/2024 9:38 AM CDT Hospital Encounter [facility] [address] [place] [phone] Claus Herman MD Discharge Disposition: Home or Self Care 01/29/2024 Travel from Last 3 Months Allergies No known [...] CDT Oxygen Saturation 96% 06/19/2019 11:22 PM CHIEF LIBRARIAN CIRCULATION DEPARTMENT Inhaled Oxygen Concentration - - Weight 60.9 kg (134 lb 3.2 oz) 01/29/2024 7:35 A M CDT Height 162.6 cm (5' 4) 06/19/2019 8:51 PM CHIEF LIBRARIAN CIRCULATION DEPARTMENT Body Mass Index 23.04 06/19/2019 8:51 PM CHIEF LIBRARIAN CIRCULATION DEPARTMENT Plan of Treatment Not on file Procedures Procedure Name Priority Date/Time Associated Diagnosis Comments [facility] US COMPREHENSIVE SINGLE Routine 01/30/2024 8:25 AM [...] ? Study Date: ??01/30/2024 7:08am Pat. NO: ??[id number] ?Referring ??MD: ROSA BARBA Site: ? Ancient Art Curator: Vicky Alvarado RDMS : ??2000 ?Age: ?? 23 ----- INDICATION ----- Inpatient. labor. METHOD ----- [facility]TE[facility] inpatient exam. Transabdominal ultrasound examination. View: [...] lb 15 ?oz EFW by ? Hadlock ([id number]) Head / Face / Neck Biometry: Welt Butter Hand ?4.3 ? mm CM ? 6.3 ? [...] view. RVOT view. LVOT view. 3-vessel view. 2-ipzato-hfngxmi view. Situs. Aortic arch view. Bicaval view. [...] GARCIA Study Date: 01/30/2024 7:08am Pat. NO: [id number] Referring MD: ROSA BARBA Site: Ancient Art Curator: Vicky Alvarado RDMS : 2000 Age: 23 ----- INDICATION ----- Inpatient. labor. METHOD ----- [facility]TE[facility] inpatient exam. Transabdominal ultrasound examination.View: Sufficient [...] EFW (lb,oz) 5 lb 15oz EFW by Hadlock([id number]) Head / Face / Neck Biometry: Welt Butter Hand 4.3mm CM 6.3mm Nasal bone 10.4mm ANATOMY ----- The following structures appear normal: Head / Neck Cranium. Head size. Head shape.Lateral ventricles. Choroid plexus. Midline falx. Cavum septi pellucidi.Cerebellum. Cisterna magna. Parenchyma. Thalami. Vermis. Neck. Face Lips. Profile. Nose. Maxilla.Mandible. Orbits. Lens. Heart / Thorax 4-chamber view. RVOT view. LVOT view.3-vessel view. 9-xofglh-jktocog view. Situs. Aortic arch view. Bicavalview. Ductal [...] CBC with platelets (01/29/2024 10:06 AM CDT) [facility] WBC Count 9.9 4.0 - 11.0 10e3/uL [...] LABORATORY [facility] Acute Care Lab [address] [place] [address], Room [address] * Adult Type and Screen (01/29/2024 12:56 AM CDT) ABO/RH(D) O POS 01/29/2024 12:34 AM CDT UR BLOOD BANK Antibody Screen Negative Negative 01/29/2024 12:34 AM CDT UR BLOOD BANK SPECIMEN EXPIRATION DATE [id number] 01/29/2024 12:34 AM CDT UR BLOOD BANK Blood STRUCTURE OF RIGHT UPPER LIMB / Unknown Venipuncture / Unknown 01/29/2024 12:56 AM CDT 01/29/2024 1:02 AM CDT Lev Alejandro MD LAB - BLOOD BANK RICHARD T ORDER UR BLOOD BANK [facility] Blood Components Lab [address] [place] [address], [address] * (ABNORMAL) UA with Microscopic reflex [...] 01/29/2024 1:05 AM CDT UR LABORATORY Specific [place] Urine 1.009 1.003 - 1.035 01/29/2024 1:05 [...] LABORATORY [facility] Acute Care Lab [address] [facility], [address] [place] [address] * Chlamydia trachomatis/Neisseria gonorrhoeae by PCR (01/29/2024 12:38 AM CDT) [facility] Chlamydia Trachomatis Negative Negative 01/29/2024 11:09 AM CDT [facility] Comment: Negative for C. trachomatis rRNA by polishing machine tender mediated amplification. A negative result by polishing machine tender mediated amplification does not preclude the presence of infection because results are dependent on proper and adequate collection, absence of inhibitors and sufficient rRNA to be detected. Neisseria gonorrhoeae Negative Negative 01/29/2024 11:09 AM CDT [facility] Comment:Negative for N. gono rrhoeae rRNA by polishing machine tender mediated amplification. A negative result by polishing machine tender mediated amplification does not preclude the presence of C. trachomatis infection because results are dependent on proper and adequate collection, absence of inhibitors and sufficient rRNA to be detected. Swab CERVIX UTERI STRUCTURE / Unknown Non-blood Collection / Unknown 01/29/2024 12:38 AM CDT 01/29/2024 12:45 AM CDT Lev Alejandro MD LAB - MICRO GENERAL ORDERABLES [facility] Inf. Diseases Diag. Lab [address] [facility], [address] [place] [address], [facility] * (ABNORMAL) Wet prep (01/29/2024 12:38 AM CDT) [facility] Trichomonas Absent Absent JET 01/29/2024 1:01 [...] LAB - MICRO GENERAL ORDERABLES UR LABORATORY [facility] Acute Care Lab [address] [facility], [address] [place] [address] * Group B strep [...] LABORATORY - 01/29/2024 8:46 PM CDT [employer] Easy Xpert GBS LB Assay, performed on the [employer]?? [employer], is a qualitative in vitro diagnostic [...] settings. The device is not intended for ikifb-ng-trbi use. Lev Alejandro MD LAB - MICRO GENERAL ORDERABLES [facility] LABORAT[facility] Inf. Diseases Diag. Lab [address] [facility], [address] [place] [address], [facility] * HIV-1 Antibody (External Result) (07/27/2023 12:27 AM CDT) HIV 1&2 Antibody (External) Negative Nonreactive [facility] 07/27/2023 12:2 7 AM CDT Patient Reported LAB - HIM EXTERNAL R ESULT [facility] [address] [place], [place] [address] [phone] from Last 3 Months or Most Recently Relevant to Health Maintenance Advance Directives For more information, please contact: [phone] * Full Code (Latest Code Status on File) Date Activated Date Inactivated Comments 01/29/2024 12:33 AM 01/30/2024 11:44 AM All basic and advanced life-sustaining interventions are performed as appropriate Question Answer Comments Code status determined by: Discussion with patie nt/ legal decision maker Care Teams Operations Research Group Manager Relationship Specialty Start Date End Date Shalonda Barrett MD [facility] [address] [place] [address] PCP - General Family Medicine 01/29/24
--- OUTSIDE RECORDS SUMMARY | 2024-02-27 11:07 | XMS_ITS ---
Author Organization [facility] Address [address] [place] [address] Care Team Providers Care Research Compliance Specialist Name Role Phone Shalonda Barrett MD Primary Care Provider + Transitional Care Management Status:Closed (Closed) Start date:01/31/2024 Enrollment date:01/31/2024 End date:02/14/2024 Close reason:Goals met Continued Care and Services Coordination
--- OUTSIDE RECORDS SUMMARY | 2024-02-27 11:07 | XMS_ITS | Encounter Summary ---
Author Organization [place] Address Critical access hospital0 [facility] [address] Care Team Providers Care Gem Technician Name Role Phone No Ref-Primary, Physician Primary Care Provider Shalonda Barrett MD Primary Care Provider + Reason for Visit * Reason Comments Labor * Auth/Cert (Routine) Specialty Diagnoses / Procedures Referred By Contac t Referred To Contact senior android software engineer Diagnoses Maternity*TONYA: * Labor uterine contractions Ur [facility] [address] [place] [address] Referral ID Status Reason Start Date Expiration Date Visits Re quested Visits Authorized [id number] 1 1 Encounter Details Date Type Department Care Team (Latest Contact Info) Description 01/28/2024 10:53 PM CDT - 01/30/2024 9:38 AM CDT Hospital Encounter [facility] [address] [place] [address] Claus Herman MD [address] [place] [address] Discharge Disposition: Home or Self [...] Body Mass Index 23.04 06/19/2019 8:51 PM SALES REPRESENTATIVE WIRE ROPE documented in this encounter Discharge Summaries * [...] presents as a transfer of care from [facility] with concerns for labor. She [...] swelling, generalized unwell feeling Jessa Zacarias MD Analytical Sciences Director PGY-3 01/30/24 9:31 AM Associated attestation - [...] Where can you learn more? Go to https://www.CrimeReports.net/patiented Enter N531 in the search box to learn more about Learning About When to Call Your Doctor During (After 20 Weeks). Current as of: November 15, 2022 Content Version: 14.1 ?? [employer]. Care instructions adapted under license by your healthcare professional. If you have questions about a medical condition or this instruction, always ask your healthcare professional. [employer] disclaims any warranty or liability for your [...] bpm, mod variability, accelerations present, no decelerations [place]: 0 contractions/10 minutes Imaging: [facility] US COMPREHENSIVE (01/30/24) IMPRESSION 1. Thomas [...] concern for labor as a ROBER form [place]. Her has been notable for: - History of delivery (failure to progress, second stage) - H/o hemorrhage requiring blood transfusion, Bakri balloon - Anemia - GCT elevated, normal GTT - Factor V Leiden heterozygote - Rubella equivocal - Migraines # C/f Labor Presented with painful uterine contractions to [place]. Workup at outside hospital concerning for possible increasing cervical effacement so transfer was recommended for higher level NICU cares. At presentation to [facility], infectious workup unremarkable including negative wet [...] and discussed with Dr. Claus Zacarias MD Analytical Sciences Director PGY-3 01/30/24 8:42 AM Associated attestation - Claus Herman MD - 01/30/2024 11:30 AM CDT Physician Attestation I saw this patient with the resident and agree with the resident/fellow's findings and plan of careas documented in the note. [place]ems findings: Patient is a 23 YO at 34w6d who presented as transport from [facility] 01/28/2024 for concerns of threatened labor in the setting of late period and history of LTCS desiring TOLAC. Since admission the cervix remains unchanged and the patient is noting less contractions today. She has taken no further nifedipine. The fetus is reassuring on FHR monitoring. US today is reassuring and normal. The patient is comfortable with discharge to follow up with [facility] OB team. 25 MINUTES SPENT [...] bpm, mod variability, accelerations present, no decelerations [place]: 2 contractions/10 minutes Assessment/Plan Abrial Douglas Garcia is a 23 year old @ 34w5d by LMP c/w 8w1d US, admitted with concern for labor as a ROBER form [place]. Her has been notable for: - History of delivery (failure to progress, second stage) - H/o hemorrhage requiring blood transfusion, Bakri balloon - Anemia - GCT elevated, normal GTT - Factor V Leiden heterozygote - Rubella equivocal - Migraines # C/f Labor Presented with painful uterine contractions to [place]. Workup at outside hospital concerning for possible increasing cervical effacement so transfer was recommended for higher level NICU cares. At presentation to [facility], infectious workup unremarkable including negative wet [...] and discussed with Dr. Claus Zacarias MD Analytical Sciences Director PGY-3 01/29/24 11:02 AM Associated attestation - Claus Herman MD - 01/29/2024 11:39 AM CDT Physician Attestation I saw this patient with the resident and agree with the resident/fellow's findings and plan of careas documented in the note. Weems findings: Patient is a 23 YO at 34w5d who presented as transport from [facility] last evening for concerns of [...] OK for OP management and delivery at [place] after 35 weeks. Likely discontinue tomorrow am. [...] on exam, still posterior. Lev Alejandro MD BOLOGNA MAKER PGY-3 01/29/2024 7:15 AM documented in this encounter H&P Notes * Lev Alejandro MD - 01/28/2024 11:34 PM CDT Images from the original note were not included. Antepartum History and Physical January 29, 2024 Sid Garcia [id number] HPI Sid Garcia is a 23 year old at 34w4d by LMP c/w 8w1d US who presents as a transfer ofcare from [facility] with concerns for labor. She started to notice back pain and frequent abdominal tightening this morning (01/27). She thought it was [place] Us contractions so continued with her planned [...] 4 mg 4 mg Oral Q6H PRN eLv Alejandro MD Or ondansetron (ZOFRAN) injection 4 [...] tablet 2 tablet 2 tablet Oral BID Lve Alejandro MD simethicone (MYLICON) chewable tablet 160 [...] Physical Activity: Sufficiently Active (08/17/2023) Received from [facility] Exercise Vital Sign Days of Exercise per Week: 5 days Minutes of Exercise per Session: 60 min Stress: No Stress Concern Present (07/14/2022) Received from [facility] [place] of Occupational Health - Occupational Stress Questionnaire Feeling of Stress : Only a little Social Connections: Socially Isolated (07/14/2022) Received from [facility] Social Connection and Isolation Panel [NHANES] Frequency of Communication with Friends and Family: More than three times a week Frequency of Social Gatherings with Friends and Family: Once a week Attends Yarsanism Services: Never Active Member of Clubs or [...] 150 bpm, moderate variability, accelerations present, nodecelerations [place]: 3-4 contractions in 10 minutes Impression: Category [...] Ketones Urine 100 (A) Negative mg/dL Specific [place] Urine 1.009 1.003 - 1.035 Blood Urine [...] Abnormality Status --------- ------ Adult Type and Screen[[id number]] Final result Please view results for these tests on the individual orders. Adult Type and Screen Result Value Ref Range ABO/RH(D) O POS Antibody Screen Negative Negative SPECIMEN EXPIRATION DATE [id number] Imaging Not available in system. Assessment/Plan 23 year old at 34w5d by LMP consistent with 8w1d US, transferred to [facility] for NICU cares in the setting [...] course - BMZ: s/p first dose at [place] 01/27 at 2108 - Magnesium not indicated [...] supervision of Dr. Herman. Lev Alejandro MD BOLOGNA MAKER PGY-3 01/29/2024 4:34 AM Associated attestation - Claus Herman MD - 01/29/2024 11:33 AM CDT Physician Attestation I did not see the patient on this date. [facility] [...] PM CDT Patient arrived via ambulance from [facility] at 2255 and admitted to [...] Procedure Name Priority Date/Time Associated Diagnosis Comments [facility] US COMPREHENSIVE SINGLE Routine 01/30/2024 8:25 [...] ? Study Date: ??01/30/2024 7:08am Pat. NO: ??[id number] ?Referring ??MD: ROSA BARBA Site: ? Charter Boat Captain: Vicky Alvarado RDMS : ??2000 ?Age: ?? [...] lb 15 ?oz EFW by ? Hadlock ([id number]-GF-AN-FL) Head / Face / Neck Biometry: Clip Riveter ?4.3 ? mm CM ? 6.3 ? [...] view. RVOT view. LVOT view. 3-vessel view. 5-urfauf-ieqopxd view. Situs. Aortic arch view. Bicaval view. [...] GARCIA Study Date: 01/30/2024 7:08am Pat. NO: [id number] Referring MD: ROSA BARBA Site: [employer] Captain: Vicky Alvarado RDMS : 2000 Age: 23 [...] EFW (lb,oz) 5 lb 15oz EFW by Hadlock(IXI-XM-MO-FL) Head / Face / Neck Biometry: Clip Riveter 4.3mm CM 6.3mm Nasal bone 10.4mm ANATOMY ----- The following structures appear normal: Head / Neck Cranium. Head size. Head shape.Lateral ventricles. Choroid plexus. Midline falx. Cavum septi pellucidi.Cerebellum. Cisterna magna. Parenchyma. Thalami. Vermis. Neck. Face Lips. Profile. Nose. Maxilla.Mandible. Orbits. Lens. Heart / Thorax 4-chamber view. RVOT view. LVOT view.3-vessel view. 4-sslaqg-jwywxsc view. Situs. Aortic arch view. Bicavalview. Ductal [...] fluid volume appeared normal. Jessa Zacarias MD [facility] US ORDERABLE S * (ABNORMAL) CBC with platelets (01/29/2024 10:06 AM CDT) [facility] Signature WBC Count 9.9 4.0 - [...] [facility] Lab Critical access hospital0 [facility], [address] [place] [phone] * Adult Type and Screen (01/29/2024 12:56 AM CDT) ABO/RH(D) O POS 01/29/2024 12:34 AM CDT UR BLOOD BANK Antibody Screen Negative Negative 01/29/2024 12:34 AM CDT UR BLOOD BANK SPECIMEN EXPIRATION DATE [id number] 01/29/2024 12:34 AM CDT UR BLOOD BANK Blood STRUCTURE OF RIGHT UPPER LIMB / Unknown Venipuncture / Unknown 01/29/2024 12:56 AM CDT 01/29/2024 1:02 AM CDT Lev Alejandro MD LAB - BLOOD BANK RICHARD T ORDER Performing Organization Address [facility]/ZIP Co de Phone Number UR BLOOD BANK [facility] Blood Components Lab [address] [place] [address], Room [place] [phone] * (ABNORMAL) UA with [...] 01/29/2024 1:05 AM CDT UR LABORATORY Specific [place] Urine 1.009 1.003 - 1.035 01/29/2024 1:05 [...] [facility] Lab [address] [facility], [address] [place] [address], [facility] * Chlamydia trachomatis/Neisseria gonorrhoeae by PCR (01/29/2024 12:38 AM CDT) Chlamydia Trachomatis Negative Negative 01/29/2024 11:09 AM CDT [facility] Comment: Negative for C. trachomatis rRNA by motor expert mediated amplification. A negative result by motor expert mediated amplification does not preclude the presence of infection because results are dependent on proper and adequate collection, absence of inhibitors and sufficient rRNA to be detected. Neisseria gonorrhoeae Negative Negative 01/29/2024 11:09 AM CDT [facility] Comment:Negative for N. gono rrhoeae rRNA by motor expert mediated amplification. A negative result by motor expert mediated amplification does not preclude the presence [...] Diseases Diag. Lab [address] [facility], [address] [place] [address], [facility] * (ABNORMAL) Wet prep (01/29/2024 [...] LAB - MICRO GENERAL ORDERABLES UR LABORATORY [facility] Acute Care Lab [address] [facility], [address] [place] [address], [facility] * Group B strep PCR (01/29/2024 [...] LABORATORY - 01/29/2024 8:46 PM CDT The LapSpace Xpert GBS LB Assay, performed on the [employer], is a qualitative in vitro diagnostic [...] settings. The device is not intended for orzar-um-ftqy use. Lev Alejandro MD LAB - MICRO GENERAL ORDERABLES [facility] Inf. Diseases Diag. Lab [address] [facility], [address] [place] [address] * HIV-1 Antibody (External Result) (07/27/2023 12:27 AM CDT) HIV 1&2 Antibody (External) Negative Nonreactive [facility] 07/27/2023 12:2 7 AM CDT Patient Reported LAB - HIM EXTERNAL R ESULT [facility] [address] [place], [place] [phone] [place] [address] * Hepatitis B Surface Antigen (External Result) (07/27/2023 12:27 AM CDT) Hepatitis B Surface Antigen (External) Negative [facility] 07/27/2023 12:2 7 AM CDT Patient Reported LAB - HIM EXTERNAL R ESULT [facility] [address] [place] [address], [facility] [phone] * Rubella Antibody IgG (External Result) (07/27/2023 12:27 AM CDT) Rubella Antibody IgG (External) Immune Nonreactive [facility] 07/27/2023 12:2 7 AM CDT Patient Reported LAB - HIM EXTERNAL R ESULT Performing Organization Address City/[facility]/ZIP Co de Phone Number [facility] [address] [place] [address], [facility] [phone] documented in this encounter Visit Diagnoses Diagnosis [...] Mendoza, ENOCH) 0840 (See Alternative - Provider: aDly Quintana, ENOCH) sodium chloride (PF) 0.9% PF [...] not exceed 2 doses in 24 hours. 1744 ($Given - Provider: Ledy Allred RN) Linked [...] Antepartum documented in this encounter Care Teams Gem Technician Relationship Specialty Start Date End Date No Ref-Primary, Physician PCP - General 06/19/19 01/28/24 Shalonda Barrett MD [facility] [address] [place] [address] PCP - General Family Medicine 01/29/24 documented as of this encounter
--- OUTSIDE RECORDS SUMMARY | 2024-02-27 11:08 | XMS_ITS | Encounter Summary ---
Author Organization [facility] Address [address] [place] [address] Care Team Providers Care Tin Flopper Name Role Phone Elsewhere, Pcp Primary Care Provider Unavailabl e Reason for Visit * Reason Comments Sore Throat Pt presents w/throat pain onset last night, denies cough and fever. Encounter Details Date Type Department Care Team (Late st Contact Info) Description 01/11/2024 5:07 PM CDT - 01/11/2024 6:48 PM CDT [facility] [address] [place] [address] Alvino Christianson, PDedraA.-Amena., P.A. [address] [phone] Pharyngitis Acute (Primary Dx) Discharge Disposition: Home [...] medical care, and heating? Somewhat hard 07/14/2022 [facility] [place] of Occupat ional Health - Occupational Stress [...] your living situation today? I have a [facility] place to live 08/17/2023 Education [...] HOURS NEEDED FOR NAUSEA AND VOMITING 07/27/2023 naflvpd-Yg-icxw-FA (VINATE ONE) 60 mg iron-1 mg per [...] M ICROBIOLOGY - GENERAL ORDERABLES Final Result [facility] [address] [place] [address], [facility] NPRG [facility] [address] [place] [address] documented in this encounter Visit Diagnoses Diagnosis Pharyngitis Acute- Primary documented in this encounter Care Teams Tin Flopper Relationship Specialty Start Date End Date Elsewhere, Pcp PCP - General 08/30/21 documented as of this encounter
--- OUTSIDE RECORDS SUMMARY | 2024-02-27 11:08 | XMS_ITS ---
Author Organization [facility] Address [address] [place] [address] Care Team Providers Care Computer Graphic Designer Name Role Phone Unavailable Unavailable Unavailable Surgery Details Not on file Complications Check Surgery Details section. Procedure Estimated Blood Loss Check Surgery Details section. Procedure Findings Check Surgery Details section. Procedure Specimens Taken Check Surgery Details section.
--- OUTSIDE RECORDS SUMMARY | 2024-02-27 11:08 | XMS_ITS | Encounter Summary ---
Author Organization [facility] Address [address] [place] [address] Care Team Providers Care Registered Client Associate Name Role Phone Elsewhere, Pcp Primary Care [...] CDT - 12/06/2023 7:30 PM CDT [facility] [address] [place] [phone] Benny Cuevas M.D. [address] [place] [address] Migraine Headache (Primary Dx); 27 Weeks Gestation [...] How often do you attend chur or rastafarian services? Never 07/14/2022 Do you belong to [...] medical care, and heating? Somewhat hard 07/14/2022 [facility] [place] of Occupat ional Health - Occupational [...] living situation today? I have a [facility] place to live 08/17/2023 Education [...] you are . Follow up with your partition notcher if your headache isn't improving by tomorrow. * Attachments The following attachments cannot be sent through Care Everywhere. * Migraine Headache (Faroese) documented in this encounter Medications at Time of Discharge docosahexaenoic acid 200 mg capsule Take by mouth. 07/27/2023 ferrous sulfate (IRON ORAL) Take by mouth. ondansetron ODT (ZOFRAN-ODT) 4 mg disintegrating tablet DISSOLVE ONE TABLET BY MOUTH EVERY 8 HOURS NEEDED FOR NAUSEA AND VOMITING 07/27/2023 [id number]-Kr-gqst-FA (VINATE ONE) 60 mg iron-1 mg per [...] 1. Migraine Headache 2. 27 Weeks Gestation ([facility]) ED Disposition Discharge ED Prescriptions Medication [...] corrected in real-time. Please message me via MC10 In Basket if you note any areas [...] R.N.) documented in this encounter Care Teams Registered Client Associate Relationship Specialty Start Date End Date Elsewhere, Pcp PCP - General 08/30/21 documented as of this encounter
--- OUTSIDE RECORDS SUMMARY | 2024-02-27 11:08 | XMS_ITS | Referral Summary ---
Author Organization [facility] Address [address] [place] [address] Care Team Providers Care Letter Sorting Machine Operator Name Role Phone Elsewhere, Pcp Primary Care Provider Unavailabl e Source Comments Patient records contain information from all sites at [facility]. For routine questions regarding patient records, call [phone] during business hours, M-F 8:00 AM - 5:00 PM Central Time. Record requests for emergency care only can be directed to [phone] at any time.[facility] Encounters Date Type Department Care Team Description 01/11/2024 5:07 PM CDT - 01/11/2024 6:48 PM CDT [facility] [address] [place] [phone] Alvino Christianson P.A.-C., P.A. Pharyngitis Acute (Primary Dx) Discharge Disposition: Home or Self Care 12/06/2023 6:50 PM CDT - 12/06/2023 7:30 PM CDT [facility] [address] [place] [phone] Benny Cuevas M.D. Migraine Headache (Primary Dx); 27 Weeks Gestation (HCC) Discharge Disposition: Home or Self Care 12/06/2023 6:30 PM CDT Office Visit Urgent Care, [facility], in [place], [place] [address] [place] [phone] Ana Laura Block P.A.-C., P.A. Procedure And Treatment Not Carried Out Due To Patient Leaving Prior To Being Seen By Health Care Provider (Primary Dx) Discharge Disposition: Home or Self Care from Last 3 Months Allergies Active Allergy Reactions Criticality Noted Date Comments Ondansetron GI intolerance 06/08/2022 ODT and liquid forms only, cause n/v. Tolerates IV and oral pill formulations. Medications kryorsc-Fo-hlqn-FA (VINATE ONE) 60 mg iron-1 mg per [...] 0.6 oz pur e alcohol) [facility] Utilities Answer Date Recorded In the past 12 months has e [employer], [employer], or water [employer] threatened to shut off services in your [...] your living situation today? I have a [facility] place to live 08/17/2023 Education Answer [...] M ICROBIOLOGY - GENERAL ORDERABLES Final Result [facility] [address] [place] [address], [place] NPRG [facility] [address] [place] [address] from Last 3 Months Insurance [employer] Care Teams Letter Sorting Machine Operator Relationship Specialty Start Date End Date Elsewhere, Pcp PCP - General 08/30/21
--- OUTSIDE RECORDS SUMMARY | 2024-02-27 11:08 | XMS_ITS | Clinical Summary ---
Author Organization [facility] Address [place], [place] [address] Care Team Providers Care Community Arts Worker Name Role Phone [facility] Primary Care Pr [...] Relation Name Comments Bipolar disorder Brother 1 [place] Thyroid Disease Brother 1 [place]in[place] Good Health Brother 2 Desai Good Health [...] disease Relation Name Status Comments Brother 1 [place] Alive Brother 2 Desai Alive Father Maternal [...] Comments Blood Pressure 118/72 06/30/2022 2:37 PM CAUL DRESSER Pulse 83 06/30/2022 2:37 PM CAUL DRESSER Temperature 36.9 ??C (98.4 ??F) 12/25/2021 4:00 PM CD T Respiratory Rate 16 12/25/2021 4:00 PM CDT Oxygen Saturation 98% 12/25/2021 4:00 PM CDT Inhaled Oxygen Concentration - - Weight 52.2 kg (115 lb) 06/30/2022 2:37 PM CAUL DRESSER Height 162.6 cm (5' 4) 12/25/2021 4:00 [...] Procedure Name Priority Date/Time Associated Diagnosis Comments OILING MACHINE OPERATOR THIN PREP PAP SCREEN IMAGED Routine 03/24/2023 12:00 PM CAUL DRESSER from Last 3 Months or Most Recently Relevant to Health Maintenance Results * OILING MACHINE OPERATOR THIN PREP PAP SCREEN IMAGED (03/24/2023 12:00 PM CAUL DRESSER) Case Report Gynecologic Cytology Report ? Case: [id number] ? Authorizing Provider: ??Harmony Colon ?Collected: ? 03/24/2023 1200 ? MD Lennie ? Ordering Location: ? [facility] ?Received: ?03/28/2023 1655 ? First Screen: ?Nino Dimas ? Specimen: ?OILING MACHINE OPERATOR ThinPrep Vial Screening, Cervical ? 04/07/2023 1:26 PM CAUL DRESSER [facility]AL LABORATORY INTERPRETATION/ RESULT NEGATIVE FOR INTRAEPITHELIAL LESION OR MALIGNANCY (NIL) (none) 04/07/2023 1:26 PM CAUL DRESSER [facility] ENTRAL LABORATORY IMEN ADEQUACY Satisfactory for evaluation Endocervical component present 04/07/2023 1:[address] [facility] HPV REQUEST HPV not requested 2022 1:[address] [facility] Date of LMP 03/05/2023 04/07/2023 1:[address] [facility] Abnormal Pap or [place] Bx in last 5 years No 04/07/2023 1:[address] [facility] Menstrual Status Irregular Periods 04/07/2023 1:26 PM CAUL DRESSER [facility] [place] Bx Done Today No 04/07/2023 1:[address] [facility] Additional Information 04/07/2023 1:[address] [facility] Comment: Interpreted at [facility] - [address] [place] [id number] Automated Review Successful 04/07/2023 1:[address] [facility] Comment:Specimen processed s uccessfully by automated uniform attendant device, ThinPrep Imaging System, [employer] Note The pap test is a screening technique, not a diagnostic procedure. It is used primarily to screen for squamous cancers and precursor lesions. Published studies have shown that it is subject to both false negative and false positive results. The pap test should not be used as the sole means to diagnose or exclude pre-malignant and malignant lesions. 04/07/2023 1:26 PM CAUL DRESSER [facility] Other (Cervical) 03/24/2023 12:00 PM CAUL DRESSER 03/28/2023 4:55 PM CAUL DRESSER Harmony Colon MD PATHOLOGY/ CYTOLOGY [facility] [address] [place] [address], [place] from Last 3 Months or Most Recently Relevant to Health Maintenance Care Teams Community Arts Worker Relationship Specialty Start Date End Date Clinic, [facility] [address] [place] [address] PCP - General 12/19/23
--- OUTSIDE RECORDS SUMMARY | 2024-02-27 11:08 | XMS_ITS | Clinical Summary ---
Author Organization [facility] Address [address] [place] [address] Care Team Providers Care Electronic Publications Specialist Name Role Phone Elsewhere, Pcp Primary Care Provider Unavailabl e Source Comments Patient records contain information from all sites at [facility]. For routine questions regarding patient records, call [phone] during business hours, M-F 8:00 AM - 5:00 PM Central Time. Record requests for emergency care only can be directed to [phone] at any time.[facility] Allergies Active Allergy Reactions Criticality Noted Date Comments Ondansetron GI intolerance 06/08/2022 ODT and liquid forms only, cause n/v. Tolerates IV and oral pill formulations. Medications uvrcpsj-Aj-bdkz-FA (VINATE ONE) 60 mg iron-1 mg per [...] CDT - 01/11/2024 6:48 PM CDT Emergency [facility] [address] [place] [address] Alvino Christianson, PTerryC., P.A. Pharyngitis Acute (Primary Dx) Discharge Disposition: Home or Self Care 12/06/2023 6:50 PM CDT - 12/06/2023 7:30 PM CDT Emergency [facility] [address] [place] [phone] Benny Cuevas M.D. Migraine Headache (Primary Dx); 27 Weeks Gestation (HCC) Discharge Disposition: Home or Self Care 12/06/2023 6:30 PM CDT Office Visit Urgent Care, [facility], in [place], [place] [address] [place] [address] Ana Laura Block P.A.-C., P.A. Procedure And [...] drink = 0.6 oz pur e alcohol) [facility] Utilities Answer Date Recorded In the past 12 months has e [employer], [employer], or water [employer] threatened to shut off services in [...] How often do you attend chur or mandaen services? Never 07/14/2022 Do you [...] medical care, and heating? Somewhat hard 07/14/2022 [facility] Occupat ional Health - Occupational [...] living situation today? I have a [facility] place to live 08/17/2023 [...] M ICROBIOLOGY - GENERAL ORDERABLES Final Result [facility] [address] [place] [address], [place] NPRG [facility] [address] [place] [address] from Last 3 Months Insurance [employer] Care Teams Electronic Publications Specialist Relationship Specialty Start Date End Date Elsewhere, Pcp PCP - General 08/30/21
--- OUTSIDE RECORDS SUMMARY | 2024-02-27 11:08 | XMS_ITS | Encounter Summary ---
Author Organization [facility] Address [address] [place] [address] Care Team Providers Care Manager Ob Name Role Phone Elsewhere, Pcp Primary Care Provider Unavailabl e Encounter Details Date Type Department Care Team (Late st Contact Info) Description 12/06/2023 6:30 PM CDT Office Visit Urgent Care, [facility], in [place], [place] [address] [place] [address] Ana Laura Block, PDuc-Amena., P.A. [address] [place] [phone] Procedure And Treatment Not Carried Out Due To Patient Leaving Prior To Being Seen By Health Care Provider (Primary Dx) Discharge Disposition: Home or Self Care Social History Tobacco Use Types Packs/Day Years Used Date Smoking Tobacco: Never Passive Smoke Exposure: Never Smokeless Tobacco: Never Alcohol Use Standard Drinks/Week Comments No 0 (1 standard drink = 0.6 oz pur e alcohol) [facility] Utilities Answer Date Recorded In the past 12 months has [employer], gas, oil, or water [employer] threatened to shut off services in your [...] medical care, and heating? Somewhat hard 07/14/2022 [facility] of Occupat ional Health - Occupational Stress [...] your living situation today? I have a [facility] place to live 08/17/2023 Education [...] Primary documented in this encounter Care Teams Manager Ob Relationship Specialty Start Date End Date Elsewhere, Pcp PCP - General 08/30/21 documented as of this encounter
--- NOTE | 2024-02-27 12:11 | W.PM.LAC.MC ---
Consult Note - Mom Date of Visit Date of visit: 02/27/24 Reason for consultation: Assistance Needed and Other (latch issue, infant at 8% weight loss 4 days ago) Visit Code: Visit Patient's Information Phone number: [phone] : 3 Para: 2 Allergies No Known Drug Allergies Allergy (Verified 02/23/24 14:55) Mother's Medical History: Medical History (Updated 02/24/24 @ 00:01 by Background Daemon) UTI (urinary tract infection) ?N39.0 - Urinary tract infection, site not specified (ICD-10) labor ?O60.00 - labor without delivery, unspecified trimester (ICD-10) Anemia affecting ?O99.019 - Anemia complicating , unspecified trimester (ICD-10) Abnormal thyroid blood test ?R79.89 - Other specified abnormal findings of blood chemistry (ICD-10) Medical marijuana use ?Z79.899 - Other chcf (current) drug therapy (ICD-10) GERD (gastroesophageal reflux disease) ?K21.9 - Gastro-esophageal reflux disease without esophagitis (ICD-10) Tension headache ?G44.209 - Tension-type headache, unspecified, not intractable (ICD-10) Migraine with aura ?G43.109 - Migraine with aura, not intractable, without status migrainosus (ICD-10) Factor V Leiden mutation ?D68.51 - Activated protein C resistance (ICD-10) Work Plans: works from home Delivery Information Delivery type: Vaginal Gestational Age: 37+6 Gestational Weight For Age: AGA Weight: 3.275 kg Discharge Weight: 3.05 kg Percentage weight loss: 7 Baby's Information Baby's Age at Visit: 7 days Baby's Provider or Clinic: [facility] Jaundice: Yes Past Experience Past Experience: Yes (BF first x3 months) Current Frequency of Day Feedings: about every 2.5 hours Frequency of Night Feedings: closer to every 3 hours Both Breasts: Yes (sometimes) Suck: strong Latch: shallow Length of Time: 15 min Goals: longer than 3 months Pumping Pumping: Yes Quantity Pumped: a few mls at a time; using Motif, also has Spectra but not working well Supplementing EBM Supplement: No Formula Supplement: No Baby Elimination Number of Wet Diapers a Day: every feeding Number of BM a Day: almost every feeding, turning more orangey yellow Breast/Nipple Condition Breast Shape: Round Engorgement: No Maternal Nipple Condition - Left: Common Nipple Maternal Nipple Condition - Right: Common Nipple Sore Nipples: No Baby Assessment Skin: Yellow (face and shoulders) Tongue/frenulum: Normal/elastic Palate: Average Lips: Relaxed and Symmetrical Jaw Alignment: Symmetrical Mucosa: Ricketts, moist Onsite Observation Pre-Feed weight: 3.034 kg Post-Feed weight: 3.104 kg Milk Transferred (mL): 70 (13 min on R breast, 8 min on L breast) Position: Cross cradle Attachment/latch-on achieved: Easily Suck pattern: Suck burst and normal rest Swallow: Audible, consistent and Gulping Behavior following feed: Relaxed, sleepy Pre-Nursing Left Nipple: Within Normal Limits Pre-Nursing Right Nipple: Within Normal Limits Post-Nursing Left Nipple: Blanched Post-Nursing Right Nipple: Within Normal Limits Assessments/Interventions Assessments/Interventions: This 7 day old baby latched easily to mom's left breast, however did have a shallow latch initially. Mom has no pain with this, but baby making quiet slurpy sounds with nursing. Had mom take baby off, discussed asymmetric latch with a breast sandwich to get baby on wider and deeper. Mom able to accomplish this easily and baby stayed latched. Slurpy sounds gone, audible swallowing heard. Discussed role of deeper latch will increase his milk intake and less air intake for baby may help decrease him spitting up. Encouraged mom to always offer both breasts at each feeding. Discussed role of adding in pumping around 2 weeks of age if she wants a small freezer supply given she lost her milk supply around 3 months with first baby. Discussed role of frequent nursing now to set a good foundation for her milk supply. Also reviewed fluids/food-nutrition for her to be sure she's getting the calories she needs to maintain a milk supply. Mom has a [employer] and [employer] pump at home; the Motif pump is working but she gets no milk with the Spectra pump-encouraged her to call the [employer] to have them troubleshoot with her to see if she can get it working. Education provided: Early feeding cues to maximize timing of latching, Asymmetric latch technique for wide/deep latch to increase milk, Transfer for baby and increase comfort for mom, Supply/demand nature of milk supply and Need for frequent stimulation/milk removal Follow-Up Suggested follow up: Appointment as needed Recommend baby be seen by provider for:: has an appointment in 3 days for weight check and circumcision Time Spent Time spent with patient (min): 60 (reviewing EMR and face to face time with patient, partner, and baby) Meds Home Medications and Allergies Home Medications ?Medication ?Instructions ?Recorded ?Confirmed ?Type docosahexaenoic acid 200 mg 200 mg PO DAILY 07/27/23 02/27/24 History capsule ( DHA) ferrous sulfate 250 mg (50 mg 250 mg PO Q OTHER DAY 01/20/24 02/27/24 History iron) tablet,extended release acetaminophen 500 mg tablet mg PRN 02/27/24 History Allergies Allergy/AdvReac Type Severity Reaction Status Date / Time No Known Drug Allergies Allergy Verified 02/23/24 14:55
== END 2024-02-27 11:06 | disposition home or self-care (01) ==
LOC: OB LAC 11:05
PROVIDERS: PCP Family Medicine; Visit Provider Obstetrics & Gynecology
DX: Z39.1 Encounter for care and examination of lactating mother (principal)
CPT/HCPCS: G0463

== ENCOUNTER 2024-04-03 14:54 | Outpatient (CLI) | payer MEDICAID, SELFPAY ==
--- OUTSIDE RECORDS SUMMARY | 2024-04-03 14:57 | XMS_ITS ---
Author Organization [facility] Address [address] [place] [address] Care Team Providers Care Circuits Engineer Name Role Phone Unavailable Unavailable Unavailable Surgery Details Not on file Complications Check Surgery Details section. Procedure Estimated Blood Loss Check Surgery Details section. Procedure Findings Check Surgery Details section. Procedure Specimens Taken Check Surgery Details section.
--- OUTSIDE RECORDS SUMMARY | 2024-04-03 14:57 | XMS_ITS | Encounter Summary ---
Author Organization [facility] Address [address] [place] [address]. [place] [address] Care Team Providers Care Dictating Machine Typist Name Role Phone Shalonda Barrett MD Primary [...] you bought just not last and you didn t have money to get more? No 01/28/2024 Housing Stability Answer Date Recorded Do you have housing? (Abbeyin g is defined as stable permanent housing and does not include staying ouside in a car, in a tent, in an abandoned building, in an overnight retirement, or couch-surfing.) Yes 01/28/2024 Are you worried [...] Recorded Sex Assigned at Not on file Legal Sex Female 4:29 AM DOOR TO DOOR SALESMAN Gender Identity Not on file Sexual Orientation Not on file documented as of this encounter Plan of Treatment Not on file documented as of this encounter Visit Diagnoses Not on filedocumented in this encounter Care Teams Dictating Machine Typist Relationship Specialty Start Date End Date Shalonda Barrett MD [facility] & [address] [address] PCP - General Family Medicine 01/29/24 documented as of this encounter
--- OUTSIDE RECORDS SUMMARY | 2024-04-03 14:57 | XMS_ITS | Encounter Summary ---
Author Organization [facility] Address [address] [place] [address] Care Team Providers Care Paper Bag Machine Operator Name Role Phone Elsewhere, Pcp Primary Care Provider Unavailabl e Reason for Visit * Reason Comments Sore Throat Pt presents w/throat pain onset last night, denies cough and fever. Encounter Details Date Type Department Care Team (Late st Contact Info) Description 01/11/2024 5:07 PM CDT - 01/11/2024 6:48 PM CDT Emergency [facility] [address] [place] [phone] Alvino Christianson, P.A.-C., P.A. [address] [phone] Pharyngitis Acute (Primary Dx) Discharge Disposition: Home or Self Care Social History Tobacco Use Types Packs/Day Years Used Date Smoking Tobacco: Never Passive Smoke Exposure: Never Smokeless Tobacco: Never Alcohol Use Standard Drinks/Week Comments No 0 (1 standard drink = 0.6 oz pur e alcohol) [facility] Utilities Answer Date Recorded In the [...] medical care, and heating? Somewhat hard 07/14/2022 [facility] of Occupat ional Health - Occupational Stress [...] your living situation today? I have a [facility] place to live 08/17/2023 Education [...] 84 01/11/2024 3:12 PM CDT Temperature 37.4 C (99.3 F) 01/11/2024 3:12 PM CDT Respiratory Rate 16 01/11/2024 3:12 PM CDT Oxygen Saturation 97% 01/11/2024 3:12 PM CDT Inhaled Oxygen Concentration - - Weight 60.8 kg (134 lb 0.6 oz) 01/11/2024 5:00 P M CDT Height 162.6 cm (5' 4) 01/11/2024 5:00 PM CDT Body Mass Index 23.01 01/11/2024 5:00 PM CDT documented in this encounter Medications at Time of Discharge ferrous sulfate (IRON ORAL) Take by mouth. SUMAtriptan (IMITREX) 50 mg tablet TAKE ONE TABLET BY MOUTH ONCE DAILY AT ONSET OF HEADACHE, MAY REPEAT WITH 1 TABLET AFTER 2 HOURS NEEDED -MAX OF 4 TABLETS PER 24 HOURS 08/02/2023 docosahexaenoic acid 200 mg capsule Take by mouth. 07/27/2023 ondansetron ODT (ZOFRAN-ODT) 4 mg disintegrating tablet DISSOLVE ONE TABLET BY MOUTH EVERY 8 HOURS NEEDED FOR NAUSEA AND VOMITING 07/27/2023 vsdvyep-Qe-sexs-FA (VINATE ONE) 60 mg iron-1 mg per tablet Take 1 tablet by mouth daily. promethazine (Phenergan) 25 mg tablet Take 1 tablet (25 mg total) by mouth every 6 (six) hours as needed for nausea or vomiting (Headache). 15 tablet 12/06/2023 documented as of this encounter Progress Notes * Alvino Christianson, PDedraA.-C., P.A. - 01/11/2024 6:16 PM CDT SUBJECTIVE [...] M ICROBIOLOGY - GENERAL ORDERABLES Final Result [facility] [address] [place] [address], [facility] NPRG [place] [address] [place] [address] documented in this encounter Visit Diagnoses Diagnosis Pharyngitis Acute- Primary documented in this encounter Care Teams Paper Bag Machine Operator Relationship Specialty Start Date End Date Elsewhere, Pcp PCP - General 08/30/21 documented as of this encounter
--- OUTSIDE RECORDS SUMMARY | 2024-04-03 14:57 | XMS_ITS | Referral Summary ---
Author Organization [facility] Address [address] [place] [address]. [place] [address] Care Team Providers Care Head Up Operator Name Role Phone Shalonda Barrett MD Primary Care Provider + Encounters Date Type Department Care Team Description 01/28/2024 10:53 PM CDT - 01/30/2024 9:38 AM CDT Hospital Encounter [facility] [place] [facility] [address] [place] [phone] Claus Herman MD Discharge Disposition: Home or Self Care 01/29/2024 Travel from Last 3 Months Allergies No known active allergies Medications metoclopramide (REGLAN) 10 MG tablet Take 1 tablet (10 mg) by mouth 3 times daily as needed (headache or nausea) 20 tablet 1 0 Active Ferrous Gluconate (IRON 27 PO) Take [...] Comme nts Yes 03/06/2024 Based on last va nstrual period of 05/31/2023 (Exact Date) Sex and Gender Information Value Date Recorded Sex Assigned at Not on file Legal 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 Gender Identity Not on file Sexual Orientation Not on file Last Filed Vital Signs Vital Sign Reading Time Taken Comments Blood Pressure 107/56 01/30/2024 6:50 AM CDT Pulse 96 01/28/2024 11:12 PM CDT Temperature 36.8 C (98.2 F) 01/30/2024 6:50 AM CDT Respiratory Rate 16 01/30/2024 6:50 AM CDT Oxygen Saturation 96% 06/19/2019 11:22 PM SLOT FLOOR ATTENDANT Inhaled Oxygen Concentration - - Weight 60.9 kg (134 lb 3.2 oz) 01/29/2024 7:35 A M CDT Height 162.6 cm (5' 4) 06/19/2019 8:51 PM SLOT FLOOR ATTENDANT Body Mass Index 23.04 06/19/2019 8:51 PM SLOT FLOOR ATTENDANT Plan of Treatment Not on file Procedures [...] appeared normal. Narrative 01/30/2024 8:38 AM CDT Comprehensive ----- Pat. Name: SID DONAHUE Study Date: 01/30/2024 7:08am Pat. NO: [id number] Referring MD: ROSA BARBA Site: Research Specialist: Vicky Alvarado RDMS : 2000 Age: 23 ----- INDICATION ----- Inpatient. labor. METHOD ----- [facility] inpatient exam. Transabdominal ultrasound examination. View: Sufficient ----- Thomas . Number of fetuses: 1 DATING ----- Date Details Gest. age TONYA U/S 01/30/2024 based upon AC, BPD, Femur, HC 35 w + 4 d 03/01/2024 Assigned dating based on ultrasound (AC, BPD, Femur, HC), selected on 01/30/2024 35 w + 4 d 03/01/2024 GENERAL EVALUATION ----- Cardiac activity present. FHR 144 bpm. movements: present. Presentation: cephalic Placenta: Posterior Umbilical cord: 3 vessel cord Amniotic fluid: Amount of AF: normal. MVP 6.2 cm BIOMETRY ----- BPD 90.1 mm 36w 3d Hadlock OFD 110.5 mm 33w 2d Nicolaides HC 318.6 mm 35w 6d Hadlock Cerebellum tr 47.2 mm -/- Nicolaides AC 319.3 mm 35w 6d 67% Hadlock Femur 66.3 mm 34w 1d Hadlock Humerus 60.1 mm 34w 6d Phil Weight Calculation: EFW 2,687 g 46% Hadlock EFW (lb,oz) 5 lb 15 oz EFW by Hadlock ([id number]) Head / Face / Neck Biometry: Inside Wireman 4.3 mm CM 6.3 mm Nasal bone 10.4 mm ANATOMY ----- The following structures appear normal: Head / Neck Cranium. Head size. Head shape. Lateral ventricles. Choroid plexus. Midline falx. Cavum septi pellucidi. Cerebellum. Cisterna magna. Parenchyma. Thalami. Vermis. Neck. Face Lips. Profile. Nose. Maxilla. Mandible. Orbits. Lens. Heart / Thorax 4-chamber view. RVOT view. LVOT view. 3-vessel view. 3-aamsgd-oigfuxz view. Situs. Aortic arch view. Bicaval view. Ductal arch view. Superior vena cava. Inferior vena cava. Cardiac position. Cardiac size. Cardiac rhythm. Right lung. Left lung. Diaphragm. Abdomen Abdom. wall. Cord insertion. Stomach. Kidneys. Bladder. Liver. Bowel. Genitals. Spine Cervical spine. Thoracic spine. Lumbar spine. Sacral spine. Extremities / Skeleton Arms. Right arm. Right hand. Left arm. Left [...] DONAHUE Study Date: 01/30/2024 7:08am Pat. NO: [id number] Referring MD: ROSA BARBA Site: Research Specialist: Vicky Alvarado RDMS : 2000 Age: 23 ----- INDICATION ----- Inpatient. labor. METHOD ----- [facility] inpatient exam. Transabdominal ultrasound [...] EFW (lb,oz) 5 lb 15oz EFW by Hadlock([id number]-PQ-FL) Head / Face / Neck Biometry: Inside Wireman 4.3mm CM 6.3mm Nasal bone 10.4mm ANATOMY ----- The following structures appear normal: Head / Neck Cranium. Head size. Head shape.Lateral ventricles. Choroid plexus. Midline falx. Cavum septi pellucidi.Cerebellum. Cisterna magna. Parenchyma. Thalami. Vermis. Neck. Face Lips. Profile. Nose. Maxilla.Mandible. Orbits. Lens. Heart / Thorax 4-chamber view. RVOT view. LVOT view.3-vessel view. 7-exiumc-axgacme view. Situs. Aortic arch view. Bicavalview. Ductal [...] 4. The amniotic fluid volume appeared normal. us Jessa Zacarias MD [facility] US ORDERABLES Edited Res ult - Final * (ABNORMAL) CBC with platelets (01/29/2024 10:06 AM CDT) WBC Count 9.9 4.0 - 11.0 10e3/uL [...] CDT Jessa Zacarias MD LAB - BLOOD ORDERABLES Final Res ult UR LABORATORY [facility] Acute Care Lab [address] [facility] [place] [address], [facility] * Adult Type and Screen (01/29/2024 12:56 AM CDT) ABO/RH(D) O POS 01/29/2024 12:34 AM CDT UR BLOOD BANK Antibody Screen Negative Negative 01/29/2024 12:34 AM CDT UR BLOOD BANK SPECIMEN EXPIRATION DATE [id number] 01/29/2024 12:34 AM CDT UR BLOOD BANK Blood STRUCTURE OF RIGHT UPPER LIMB / Unknown Venipuncture / Unknown 01/29/2024 12:56 AM CDT 01/29/2024 1:02 AM CDT us Lev Alejandro MD LAB - BLOOD BANK TEST ORDER Fin al Result UR BLOOD BANK [facility] Blood Components Lab [address] [facility], [address] [phone] * (ABNORMAL) UA with [...] 01/29/2024 1:05 AM CDT UR LABORATORY Specific [place] Urine 1.009 1.003 - 1.035 01/29/2024 1:05 [...] 1:05 AM CDT Urine Culture not indicated us Lev Alejandro MD LAB - URINE ORDERABLES Final Re sult UR LABORATORY [facility] Acute Care Lab [address] [facility], [address] [place] [address], [facility] * Chlamydia trachomatis/Neisseria gonorrhoeae by PCR (01/29/2024 12:38 AM CDT) Chlamydia Trachomatis Negative Negative 01/29/2024 11:09 AM CDT [facility] Comment: Negative for C. trachomatis rRNA by commercial real estate appraiser mediated amplification. A negative result by commercial real estate appraiser mediated amplification does not preclude the presence of infection because results are dependent on proper and adequate collection, absence of inhibitors and sufficient rRNA to be detected. Neisseria gonorrhoeae Negative Negative 01/29/2024 11:09 AM CDT [facility] Comment:Negative for N. gono rrhoeae rRNA by commercial real estate appraiser mediated amplification. A negative result by commercial real estate appraiser mediated amplification does not preclude the presence of C. trachomatis infection because results are dependent on proper and adequate collection, absence of inhibitors and sufficient rRNA to be detected. Swab CERVIX UTERI STRUCTURE / Unknown Non-blood Collection / Unknown 01/29/2024 12:38 AM CDT 01/29/2024 12:45 AM CDT us Lev Alejandro MD LAB - MICRO GENERAL ORDERABLES Final Result [facility] Inf. Diseases Diag. Lab [address] [facility], [address] [place] [address], [facility] * (ABNORMAL) Wet prep (01/29/2024 [...] 12:38 AM CDT 01/29/2024 12:46 AM CDT us Lev Alejandro MD LAB - MICRO GENERAL ORDERABLES Final Result UR LABORATORY [facility] Acute Care Lab [address] [facility], [address] [place] [id number] * Group B strep [...] LABORATORY - 01/29/2024 8:46 PM CDT The VidSysid Xpert GBS LB Assay, performed on the [employer], is a qualitative in vitro diagnostic test designed to detect Group B Streptococcus (GBS) DNA from enriched vaginal/rectal swab specimens, using fully automated, real-time polymerase chain reaction (PCR) with fluorogenic detection of the amplified DNA. Xpert GBS LB Assay testing is indicated as an aid in determining GBS colonization status in antepartum women. This assay does not diagnose or monitor treatment for GBS infections. The VidSysid Xpert GBS LB Assay is intended for use in hospital, reference or state laboratory settings. The device is not intended for eiwlu-cc-kxkz use. us Lev Alejandro MD LAB - MICRO GENERAL ORDERABLES Final Result [facility] Inf. Diseases Diag. Lab [address] [facility] [place] [address], [facility] * HIV-1 Antibody (External Result) (07/27/2023 12:27 AM CDT) HIV 1&2 Antibody (External) Negative Nonreactive [facility] 07/27/2023 12:2 7 AM CDT us Patient Reported LAB - HIM EXTERNAL RESULT Final Result [facility] [address] [place], [place] [address] [phone] from Last 3 Months or Most Recently Relevant to Health Maintenance Insurance [employer] [facility] PMAP Advance Directives For more information, please contact: [phone] * Full Code (Latest Code Status on File) Date Activated Date Inactivated Comments 01/29/2024 12:33 AM 01/30/2024 11:44 AM All basic and advanced life-sustaining interventions are performed as appropriate Question Answer Comments Code status determined by: Discussion with patie nt/ legal decision maker Care Teams Head Up Operator Relationship Specialty Start Date End Date Shalonda Barrett MD [facility] [address] [place] [address] PCP - General Family Medicine 01/29/24
--- OUTSIDE RECORDS SUMMARY | 2024-04-03 14:57 | XMS_ITS | Encounter Summary ---
Author Organization [facility] Address [address] [place] [address]. [place] [address] Care Team Providers Care Maintenance Representative Name Role Phone No Ref-Primary, Physician Primary Care Provider Shalonda Barrett MD Primary Care Provider + Reason for Visit * Reason Comments Labor * Auth/Cert (Routine) Specialty Diagnoses / Procedures Referred By Contac t Referred To Contact creative developer Diagnoses Maternity*TONYA: * Labor uterine contractions [facility] [address] [place] [phone] Phone: tel: Referral ID Status Reason Start Date Expiration Date Visits Re quested Visits Authorized [id number] 1 1 Encounter Details Date Type Department Care Team (Latest Contact Info) Description 01/28/2024 10:53 PM CDT - 01/30/2024 9:38 AM CDT Hospital Encounter [facility] [address] [place] [phone] Claus Herman MD [address] [place] [address] [id number] Discharge Disposition: Home or Self Care Social [...] in an abandoned building, in an overnight fci, or couch-surfing.) Yes 01/28/2024 Are you worried [...] on file Legal Sex 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 She [...] swelling, generalized unwell feeling Jessa Zacarias MD Flight Crew Time Clerk PGY-3 01/30/24 9:31 AM Cosigned by Claus Herman MD at 01/30/2024 11:30 AM CDT Associated attestation - Claus Herman MD - [...] encounter Discharge Instructions * Discharge Instructions* Daly Qiuntana RN - 01/30/2024 9:31 AM CDT Learning [...] Where can you learn more? Go to https://www.healthwise.net/patiented Enter N531 in the search box to learn more about Learning About When to Call Your Doctor During (After 20 Weeks). Current as of: November 15, 2022 Content Version: 14.1 ?? [employer]. Care instructions adapted under license by your healthcare professional. If you have questions about a medical condition or this instruction, always ask your healthcare professional. [employer] disclaims any warranty or liability for your use of this information. documented in this encounter Medications at Time of Discharge Ferrous Gluconate (IRON 27 PO) Take 2 [...] bpm, mod variability, accelerations present, no decelerations Cleaton: 0 contractions/10 minutes Imaging: [facility] US COMPREHENSIVE (01/30/24) IMPRESSION 1. Thomas [...] concern for labor as a ROBER form [place]. Her has been notable for: - History of delivery (failure to progress, second stage) - H/o hemorrhage requiring blood transfusion, Bakri balloon - Anemia - GCT elevated, normal GTT - Factor V Leiden heterozygote - Rubella equivocal - Migraines # C/f Labor Presented with painful uterine contractions to [place]. Workup at outside hospital concerning for possible increasing cervical effacement so transfer was recommended for higher level NICU cares. At presentation to [facility], infectious workup unremarkable including negative wet prep, GC/CT, UA unremarkable (s/p 1d Macrobid at outside hospital). FHT reactive/reassuring, toco with regular contractileactivity. Cervical exam has been stable at 1.5/20/-3. - GBS negative - s/p BMZ (01/27-); [...] and discussed with Dr. Claus Zacarias MD Flight Crew Time Clerk PGY-3 01/30/24 8:42 AM Cosigned by Claus Herman MD at 01/30/2024 11:30 AM CDT Associated attestation - Claus Herman MD - 01/30/2024 11:30 AM CDT Physician Attestation I saw this patient with the resident and agree with the resident/fellow's findings and plan of careas documented in the note. Weems findings: Patient is a 23 YO at 34w6d who presented as transport from [facility] 01/28/2024 for concerns of threatened labor in the setting of late period and history of LTCS desiring TOLAC. Since admission the cervix remains unchanged and the patient is noting less contractions today. She has taken no further nifedipine. The fetus is reassuring on FHR monitoring. US today is reassuring and normal. The patient is comfortable with discharge to follow up with [facility] OB team. 25 MINUTES SPENT BY [...] bpm, mod variability, accelerations present, no decelerations Cleaton: 2 contractions/10 minutes Assessment/Plan Abrial Douglas Garcia is a 23 year old @ 34w5d by LMP c/w 8w1d US, admitted with concern for labor as a ROBER form [place]. Her has been notable for: - History of delivery (failure to progress, second stage) - H/o hemorrhage requiring blood transfusion, Bakri balloon - Anemia - GCT elevated, normal GTT - Factor V Leiden heterozygote - Rubella equivocal - Migraines # C/f Labor Presented with painful uterine contractions to [place]. Workup at outside hospital concerning for possible increasing cervical effacement so transfer was recommended for higher level NICU cares. At presentation to [facility], infectious workup unremarkable including negative wet prep, UA unremarkable (s/p 1d Macrobid at outside hospital). FHT reactive/reassuring, toco with regular contractile activity. Cervical exam has been stable at 1.5/20/-3. - Labs: GC/CT, GBS pending; follow up [...] and discussed with Dr. Claus Zacarias MD Flight Crew Time Clerk PGY-3 01/29/24 11:02 AM Cosigned by Claus Herman MD at 01/29/2024 11:39 AM CDT Associated attestation - Claus Herman MD - 01/29/2024 11:39 AM CDT Physician Attestation I saw this patient with the resident and agree with the resident/fellow's findings and plan of careas documented in the note. Weems findings: Patient is a 23 YO at 34w5d who presented as transport from [facility] last evening for concerns of [...] OK for OP management and delivery at [place] after 35 weeks. Likely discontinue tomorrow am. [...] on exam, still posterior. Lev Alejandro MD CASING PULLER PGY-3 01/29/2024 7:15 AM documented in this encounter H&P Notes * Lev Alejandro MD - 01/28/2024 11:34 PM CDT Images from the original note were not included. Antepartum History and Physical January 29, 2024 Sid Garcia [id number] [facility] Sid Garcia is a 23 year old at 34w4d by LMP c/w 8w1d US [facility] with concerns for labor. She started to notice back pain and frequent abdominal tightening this morning (01/27). She thought it was [place] Us contractions so continued with her planned [...] Physical Activity: Sufficiently Active (08/17/2023) Received from [facility] Exercise Vital Sign Days of Exercise per Week: 5 days Minutes of Exercise per Session: 60 min Stress: No Stress Concern Present (07/14/2022) Received from [facility] [employer] - Occupational Stress Questionnaire Feeling of Stress : Only a little Social Connections: Socially Isolated (07/14/2022) Received from [facility] Social Connection and Isolation Panel [NHANES] Frequency of Communication with Friends and Family: More than three times a week Frequency of Social Gatherings with Friends and Family: Once a week Attends [employer] Services: Never Active Member of Clubs or [...] 150 bpm, moderate variability, accelerations present, nodecelerations Cleaton: 3-4 contractions in 10 minutes Impression: Category [...] Ketones Urine 100 (A) Negative mg/dL Specific [place] Urine 1.009 1.003 - 1.035 Blood Urine [...] Abnormality Status --------- ------ Adult Type and Screen[[id number]] Final result Please view results for these tests on the individual orders. Adult Type and Screen Result Value Ref Range ABO/RH(D) O POS Antibody Screen Negative Negative SPECIMEN EXPIRATION DATE [id number] Imaging Not available in system. Assessment/Plan 23 year old at 34w5d by LMP consistent with 8w1d US, transferred to [facility] for NICU cares in the setting of suspected labor. On examination here, patient appears stable, although continuing to contract on tocometry. R/o Labor Concern at outside hospital for cervical effacement at 1 cm dilated. On examination here, patient appears relatively stable with cervix of 1.5 cm, long, high, firm, and posterior. - Cervix: 30/?> 1/75/? At outside hospital> 1.5/20/-3. Suspect minimal cervical [...] course - BMZ: s/p first dose at [place] 01/27 at 2108 - Magnesium not indicated [...] supervision of Dr. Herman. Lev Alejandro MD CASING PULLER PGY-3 01/29/2024 4:34 AM Cosigned by Claus Herman MD at 01/29/2024 11:33 AM CDT Associated attestation - Claus Herman MD - 01/29/2024 11:33 AM CDT Physician Attestation I did not see the patient on this date. I was provided report [facility] also [facility] the case with [...] 01/30/24 0850 Provider Notification Provider Name/Title Dr. Hemran, Dr. Zacarias, and [facility] team Method of Notification At Bedside Request [...] PM CDT Patient arrived via ambulance from [facility] at 2255 and admitted to room 458. Ctx every 2-3 minutes, palpating moderate and patient feeling discomfort with ctx. VSS, IV patent. Denies bleeding and LOF. Dr. Alejandro paged to bedside and at bedside at 2312. Report to EONCH Lubin at 2315 who assumes patient care. documented in this encounter Plan of Treatment Not on file documented as of this encounter Procedures Procedure Name Priority Date/Time Associated Diagnosis Comments [facility] COMPREHENSIVE SINGLE Routine 01/30/2024 8:25 AM [...] AM CDT Comprehensive ----- Pat. Name: SID GARCIA Study Date: 01/30/2024 7:08am Pat. NO: [id number] Referring MD: ROSA BARBA Site: Tire Manager: Vicky Alvarado RDMS : 2000 Age: 23 ----- INDICATION ----- Inpatient. labor. METHOD ----- [facility] ANTEPARTUM inpatient exam. Transabdominal ultrasound [...] 5 lb 15 oz EFW by Hadlock ([id number]) Head / Face / Neck Biometry: Customer Service Consultant 4.3 mm CM 6.3 mm Nasal bone 10.4 mm ANATOMY ----- The following structures appear normal: Head / Neck Cranium. Head size. Head shape. Lateral ventricles. Choroid plexus. Midline falx. Cavum septi pellucidi. Cerebellum. Cisterna magna. Parenchyma. Thalami. Vermis. Neck. Face Lips. Profile. Nose. Maxilla. Mandible. Orbits. Lens. Heart / Thorax 4-chamber view. RVOT view. LVOT view. 3-vessel view. 0-mgfxga-edpdkqj view. Situs. Aortic arch view. Bicaval view. [...] GARCIA Study Date: 01/30/2024 7:08am Pat. NO: [id number] Referring MD: ROSA BARBA Site: Tire Manager: Vicky Alvarado RDMS : 2000 Age: 23 ----- INDICATION ----- Inpatient. labor. METHOD ----- [facility] ANTEPARTUM inpatient exam. Transabdominal ultrasound [...] EFW (lb,oz) 5 lb 15oz EFW by Hadlock([id number]) Head / Face / Neck Biometry: Customer Service Consultant 4.3mm CM 6.3mm Nasal bone 10.4mm ANATOMY ----- The following structures appear normal: Head / Neck Cranium. Head size. Head shape.Lateral ventricles. Choroid plexus. Midline falx. Cavum septi pellucidi.Cerebellum. Cisterna magna. Parenchyma. Thalami. Vermis. Neck. Face Lips. Profile. Nose. Maxilla.Mandible. Orbits. Lens. Heart / Thorax 4-chamber view. RVOT view. LVOT view.3-vessel view. 2-ngcmlz-dbnhued view. Situs. Aortic arch view. Bicavalview. Ductal [...] volume appeared normal. us Jessa Zacarias MD [facility] US ORDERABLES Edited Res ult - Final [...] 10:06 AM CDT 01/29/2024 10:35 AM CDT us Jessa Zacarias MD LAB - BLOOD ORDERABLES Final Res ult UR LABORATORY [facility] Acute Care Lab [facility] [facility], [address] [place] [address] * Adult Type and Screen (01/29/2024 12:56 AM CDT) ABO/RH(D) O POS 01/29/2024 12:34 AM CDT UR BLOOD BANK Antibody Screen Negative Negative 01/29/2024 12:34 AM CDT UR BLOOD BANK SPECIMEN EXPIRATION DATE [id number] 01/29/2024 12:34 AM CDT UR BLOOD BANK Blood STRUCTURE OF RIGHT UPPER LIMB / Unknown Venipuncture / Unknown 01/29/2024 12:56 AM CDT 01/29/2024 1:02 AM CDT us Lev Alejandro MD LAB - BLOOD BANK TEST ORDER Fin al Result Performing Organization Address [facility] Co de Phone Number UR BLOOD BANK [facility] Blood Components Lab [facility], [address] [place] [phone] * (ABNORMAL) UA with [...] 01/29/2024 1:05 AM CDT UR LABORATORY Specific [place] Urine 1.009 1.003 - 1.035 01/29/2024 1:05 [...] URINE ORDERABLES Final Re sult UR LABORATORY [facility] Acute Care Lab [facility], [address] [place] [address] * Chlamydia trachomatis/Neisseria gonorrhoeae by PCR (01/29/2024 12:38 AM CDT) Chlamydia Trachomatis Negative Negative 01/29/2024 11:09 AM CDT [facility] Comment: Negative for C. trachomatis rRNA by rubber compounder supervisor mediated amplification. A negative result by rubber compounder supervisor mediated amplification does not preclude the presence of infection because results are dependent on proper and adequate collection, absence of inhibitors and sufficient rRNA to be detected. Neisseria gonorrhoeae Negative Negative 01/29/2024 11:09 AM CDT [facility] Comment:Negative for N. gono rrhoeae rRNA by rubber compounder supervisor mediated amplification. A negative result by rubber compounder supervisor mediated amplification does not preclude the presence of C. trachomatis infection because results are dependent on proper and adequate collection, absence of inhibitors and sufficient rRNA to be detected. Swab CERVIX UTERI STRUCTURE / Unknown Non-blood Collection / Unknown 01/29/2024 12:38 AM CDT 01/29/2024 12:45 AM CDT Lev Alejandro MD LAB - MICRO GENERAL ORDERABLES Final Result [facility] Inf. Diseases Diag. Lab [address] [facility], [address] [place] [address] * (ABNORMAL) Wet prep [...] MICRO GENERAL ORDERABLES Final Result UR LABORATORY [facility] Acute Care Lab [address] [facility], [address] [place] [address] * Group B strep [...] Xpert GBS LB Assay, performed on the [employer], is a qualitative in vitro [...] settings. The device is not intended for swige-ro-pwur use. us Lev Alejandro MD LAB - MICRO GENERAL ORDERABLES Final Result [facility] Inf. Diseases Diag. Lab [address] [facility], [address] [place] [address] * HIV-1 Antibody (External Result) (07/27/2023 12:27 AM CDT) HIV 1&2 Antibody (External) Negative [facility] 07/27/2023 12:2 7 AM CDT us Patient Reported LAB - HIM EXTERNAL RESULT Final Result Performing Organization Address [facility] Co de Phone Number [address] [phone] * Hepatitis B Surface Antigen (External Result) (07/27/2023 12:27 AM CDT) Hepatitis B Surface Antigen (External) Negative [facility] 07/27/2023 12:2 7 AM CDT us Patient Reported LAB - HIM EXTERNAL RESULT Final Result Performing Organization Address City/[facility]/ZIP Co de Phone Number [address] [phone] * Rubella Antibody IgG (External Result) (07/27/2023 12:27 AM CDT) Rubella Antibody IgG (External) Immune Nonreactive [facility] 07/27/2023 12:2 7 AM CDT us Patient Reported LAB - HIM EXTERNAL RESULT Final Result [facility] [address] [place] [address], [facility] [phone] documented in this encounter Visit Diagnoses Diagnosis [...] given until delivery., Indications: Group B Strep, AntepartumIndications:Group B Strep $New Bag 01/29/2024 8:49 AM CDT 3 Million Units 100 mL/hr $New Bag 01/29/2024 5:15 AM CDT 3 Million Units 100 mL/h r penicillin G potassium 5 million units vial to attach to NS 100 mL bag STAT, 5 Million Units, Intravenous, ONCE, On 01/29/24 at 0100, For 1 dose, Loading Dose., Indications: Group B Strep, AntepartumIndications:Group B Strep $New Bag 01/29/2024 1:12 AM CDT 5 [...] Antepartum 2003 ($Given - Provider: Radha Mendoza, ENOCH) docusate sodium (COLACE) capsule 100 mg 100 mg, Oral, 2 TIMES DAILY, First dose on 01/29/24 at 0800, Hold for loose stools., Antepartum 07 ($Given - Provider: Ledy Allred RN)2003 ($Given - Provider: Radha Mendoza, ENOCH) 0840 ($Given - Provider: Daly Quintana RN) NIFEdipine (PROCARDIA) capsule 20 mg (CANCELED) 20 [...] Blood Pressure less than 50 mmHg., Antepartum 115 ($Given - Provider: Tristian Rogers RN)0737 ($Given - Provider: Ledy Allred RN) penicillin G potassium 3 Million Units in D5W 50 mL intermittent infusion (CANCELED)(Linked Group 1) Routine, 3 Million Units, Intravenous, EVERY 4 HOURS, First dose on 01/29/24 at 0500, To be given until delivery., Indications: Group B Strep, Antepartum 0515 ($New Bag - Provider: Tristian Rogers, RN)0849 ($New Bag - Provider: Ledy Allred RN) penicillin G potassium 5 million units vial to attach to NS 100 mL bag (COMPLETED)(Linked Group 1) STAT, 5 Million Units, Intravenous, ONCE, On 01/29/24 at 0100, For 1 dose, Loading Dose., Indications: Group B Strep, Antepartum 0112 ($New Bag - Provider: Tristian Rogers, ENOCH) multivitamin w/iron per tablet 1 tablet 1 [...] RN)2004 (See Alternative - Provider: Radha Mendoza, RN) 0840 (See Alternative - Provider: Daly Quintana, ENOCH) sodium chloride (PF) 0.9% PF flush 3 mL 3 mL, Intracatheter, EVERY 8 HOURS, First dose on 01/29/24 at 0100, to lock peripheral IV dormant line, Antepartum 010 (Not Given - Provider: Tristian Rogers RN - Reason: IV Infusing)0855 (Not Given - Provider: Ledy Allred RN - Reason: IV Infusing)2044 ($Given - Provider: Radha Mendoza, RN) 0115 (Not Given - Provider: Radha Mendoza RN - Reason: Patient sleeping)0842 ($Given - Provider: Daly Quintana, ENOCH) Continuous Medication Order 01/28/2024 01/29/2024 01/30/2024 lactated ringers infusion at 125 mL/hr, Intravenous, CONTINUOUS, Starting on 01/29/24 at 0100, Until 01/30/24 at 1138 0108 ($New Bag - Provider: Nakul Rogers, RN)0551 (Stopped - Provider: Tristian Rogers RN) [...] grams/day., Antepartum 1736 ($Given - Provider: Ledy Allred RN) bisacodyl (DULCOLAX) suppository 10 mg 10 mg, [...] site for insertion. MAX Dose: 2.5 g ( of 5 g tube) Do NOT give [...] Antepartum 1736 (See Alternative - Provider: Ledy Allred RN) prochlorperazine (COMPAZINE) injection 10 mg(Linked Group 6) [...] not exceed 2 doses in 24 hours. 1740 ($Given - Provider: Ledy Allred RN) Linked [...] Antepartum documented in this encounter Care Teams Maintenance Representative Relationship Specialty Start Date End Date No Ref-Primary, Physician PCP - General 06/19/19 01/28/24 Shalonda Barrett MD [address] [address] PCP - General Family Medicine 01/29/24 documented as of this encounter
--- OUTSIDE RECORDS SUMMARY | 2024-04-03 14:57 | XMS_ITS ---
Author Organization [facility] Address [address] [place] [address] Care Team Providers Care Bandsaw Operator Name Role Phone Shalonda Barrett MD Primary Care Provider + Transitional Care Management Status:Closed (Closed) Start date:01/31/2024 Enrollment date:01/31/2024 End date:02/14/2024 Close reason:Goals met Continued Care and Services Coordination
--- OUTSIDE RECORDS SUMMARY | 2024-04-03 14:57 | XMS_ITS | Clinical Summary ---
Author Organization [facility] Address [address] [place] [address] Care Team Providers Care Basting Machine Operator Name Role Phone Elsewhere, Pcp Primary Care Provider Unavailabl e Source Comments Patient records contain information from all sites at [facility]. For routine questions regarding patient records, call [phone] during business hours, M-F 8:00 AM - 5:00 PM Central Time. Record requests for emergency care only can be directed to [phone] at any time.[facility] Allergies Active Allergy Reactions Criticality Noted Date Comments Ondansetron GI intolerance 06/08/2022 ODT and liquid forms only, cause n/v. Tolerates IV and oral pill formulations. Medications hngovks-Fs-vrxi-FA (VINATE ONE) 60 mg iron-1 mg per tablet Take 1 tablet by mouth daily. Active ferrous sulfate (IRON ORAL) Take by mouth. Act colby ondansetron ODT (ZOFRAN-ODT) 4 mg disintegrating tablet DISSOLVE ONE TABLET BY MOUTH EVERY 8 HOURS NEEDED FOR NAUSEA AND VOMITING 07/27/19 24 Active SUMAtriptan (IMITREX) 50 mg tablet TAKE ONE TABLET BY MOUTH ONCE DAILY AT ONSET OF HEADACHE, MAY REPEAT WITH 1 TABLET AFTER 2 HOURS NEEDED -MAX OF 4 TABLETS PER 24 HOURS 08/02/19 24 Active docosahexaenoic acid 200 mg capsule Take by mouth. 07/27/19 24 Active promethazine (Phenergan) 25 mg tablet Take 1 tablet (25 mg total) by mouth every 6 (six) hours as needed for nausea or vomiting (Headache). 15 tablet 12/06/19 24 Active docusate sodium (Colace) 100 mg capsule TAKE ONE TO TWO CAPSULES BY MOUTH EVERY DAY NEEDED FOR CONSTIPATION 02/21/20 Active ibuprofen 600 mg tablet Take 1 tablet by mouth 4 (four) times a day with meals and bedtime. 02/21/20 24 Active ondansetron ODT (Zofran-ODT) 4 mg disintegrating tablet Dissolve 1 tablet (4 mg total) in the mouth every 8 (eight) hours as needed for nausea or vomiting for up to 10 days. 20 tablet 03/03/20 024 amoxicillin-pot clavulanate (Augmentin) 875-125 mg per tablet Take 1 tablet by mouth every 12 (twelve) hours for 5 days. 10 tablet 03/03/20 24 024 L.acidoph-B.animal is-B.longum (Florajen Digestion) 15 billion cell per capsule Take 1 capsule by mouth daily. 30 capsule 03/03/20 024 Active Problems Problem Noted Date Diagnosed Date [...] Encounters Date Type Department Care Team Description 03/03/2024 11:16 AM CDT - 03/03/2024 12:35 PM CDT Emergency [facility] [address] [place] [phone] Nena Pepe, SURGICAL SCHEDULER, C.N.P. Nausea (Primary Dx); Fever Of Unknown Origin; Otitis Media Suppurative Left; Mastitis Without Abscess Discharge Disposition: Home or Self Care 01/11/2024 5:07 PM CDT - 01/11/2024 6:48 PM CDT Emergency [facility] [address] [place] [address] Alvino Christianson P.A.-C., P.A. Pharyngitis Acute (Primary Dx) Discharge Disposition: Home or Self Care from Last 3 Months Immunizations Name Administration Dates Next Due 4vHPV (discontinued) 12/25/2012 9vHPV 02/20/2019 DTaP (Infanrix, Tripedia) 09/08/2004,,02/22/2001,2000,2000 HepA Pediatric/Adolescent 11/17/2009,12/18/2008 HepB Pediatric/Adolescent 11/22/2001,2000, 2000 Hib (PRP-OMP) (PedvaxHIB) 11/22/2001,2000, 2000 Hib-HepB 11/22/2001,2000 IPV 09/08/2004, 2,2000,2000 Influenza TIV (IM) 03/15/2002 MCV4 (Menveo) 02/20/2019 MMR 02/03/2020,09/08/2004,11/22/2001 PCV7 (discontinued) 11/22/2001,2000,2000 RSV: respiratory syncytial v irus (ABRYSVO) bivalent vaccine 01/27/2024 Tdap 12/28/2023,11/29/2019,12/25/2012 SAYRA 12/18/2008,10/03/2002 influenza vaccine quad (FLUZONE/FLUARIX) (6 months and older)(PF) 02/19/2019,03/15/2002 Social History Tobacco Use Types Packs/Day Years Used Date Smoking Tobacco: Never Passive Smoke Exposure: Never Smokeless Tobacco: Never Tobacco Cessation:Counseling Given: Not Answered Alcohol Use Standard Drinks/Week Comments No 0 (1 standard drink = 0.6 oz pur e alcohol) [facility] Utilities Answer Date Recorded In [...] often do you attend chur ch or uatsdin services? Never 07/14/2022 Do you belong to [...] and heating? Somewhat hard 07/14/2022 [facility] [place] of Occupat ional Health - Occupational Stress [...] living situation today? I have a [facility] place to live 08/17/2023 Education Answer Date Recorded What is the highest level of school you have completed or the highest degree you have received? 12th grade 07/14/2022 Comments No Sex and Gender Information Value Date Recorded Sex Assigned at Female 08/17/2023 8:03 PM CDT Legal Sex Female 2:26 PM CDT Gender Identity Female 08/17/2023 8:03 PM CDT Sexual Orientation Straight 08/17/2023 8: 03 PM CDT Last Filed Vital Signs Vital Sign Reading Time Taken Comments Blood Pressure 115/69 03/03/2024 11:19 AM CDT Pulse 125 03/03/2024 11:19 AM CDT fever present, tylenol given in triage Temperature 38.8 C (101.8 F) 03/03/2024 12:17 PM CDT Respiratory Rate 20 03/03/2024 11:1 9 AM CDT Oxygen Saturation 98% 03/03/2024 11: 19 AM CDT Inhaled Oxygen Concentration - - Weight 55.3 kg (122 lb) 03/03/2024 11:2 0 AM CDT Height 162.6 cm (5' 4) 01/11/2024 5:00 PM CDT Body Mass Index 20.94 01/11/2024 5:00 PM CDT Plan of Treatment Health Maintenance Due Date Last Done Comments Chlamydia and Gonorrhea Screening 2000 HIV Screening 2000 Hepatitis C Screening 2000 Depression Screening (Annual PHQ-2) 05/09/2023 COVID-19 Vaccine ( season) 2024 Influenza Vaccine (#1) 2024 9, 03/15/2002, 03/15/2002 Cervical/Vaginal Cancer Screening 03/24/2026 03/24/2023 DTaP,Tdap,and Td Vaccines (9 - Td or Tdap) 12/27/2033 12/28/2023, 11/29/2019, 12/25/2012, Additional history exists Hepatitis B Vaccines Completed 11/22/2001, 11/22/2001, 2000, Additional history exists Pneumococcal vaccine (0-64 years) Aged Out 11/22/2001, 2000, 2000 No longer eligible based on patient's age to complete this topic IPV Vaccines Completed 09/08/2004, 11/06, 2000, Additional history exists Varicella Vaccines Completed 12/18/2008, 10/03/2002 HPV Vaccines Completed 02/20/2019, 12/25/2012 Procedures Procedure Name Priority Date/Time Associated Diagnosis Comments GROUP A STREP PCR, THROAT Routine 03/03/2024 11:23 AM CDT EXTM HOME SARS CORONAVIRUS-2 (COVID-19) ANTIGEN, V Routine 03/03/2024 5:00 AM CDT GROUP A STREP PCR, THROAT Routine 01/11/2024 3:17 PM CDT Pharyngitis Acute from Last 3 Months Results * Group A Streptococcus PCR, Throat (03/03/2024 11:23 AM CDT) Only the most recent of2 resultswithin the time period is included. Strep Group A, PCR, POCT Negative Negative 03/03/2024 11:27 AM CDT NPRG Swab (Throat) 03/03/2024 11: 23 AM CDT 03/03/2024 11:25 AM CDT Nena Pepe APRN, C.N.P. LAB MICROBIOLOGY - G ENERAL ORDERABLES Final Result [facility] [address] [place] [address], [facility] NPRG [facility] [address] [place] [address] * EXT Home SARS Coronavirus-2 (COVID-19) Antigen (03/03/2024 5:00 AM CDT) EXT Home SARS-CoV-2 Antigen Presumptive Negative Presumptive Negative OTHER (SPECIFY IN SEALER DRY CELL) Swab 03/03/2024 5:00 AM CDT Historical Provider LAB MICROBIOLOGY - GENERAL O RDERABLES Edited Result - Final OTHER (SPECIFY IN SEALER DRY CELL) N/A from Last 3 Months Insurance [employer] Care Teams Basting Machine Operator Relationship Specialty Start Date End Date Elsewhere, Pcp PCP - General 08/30/21
--- OUTSIDE RECORDS SUMMARY | 2024-04-03 14:57 | XMS_ITS | Clinical Summary ---
Author Organization [facility] Address [address] [place] [address]. [place] [address] Care Team Providers Care Supervisor Home Economics Name Role Phone Shalonda Barrett MD Primary Care Provider + Allergies No known active allergies Medications metoclopramide [...] - 01/30/2024 9:38 AM CDT Hospital En[facility] [address] [facility] [phone] Claus Herman MD Discharge Disposition: Home or [...] on file Legal Sex Female 4:29 AM SQL SERVER DEVELOPER Gender Identity Not on file Sexual Orientation Not on file Last Filed Vital Signs Vital Sign Reading Time Taken Comments Blood Pressure 107/56 01/30/2024 6:50 AM CDT Pulse 96 01/28/2024 11:12 PM CDT Temperature 36.8 C (98.2 F) 01/30/2024 6:50 AM CDT Respiratory Rate 16 01/30/2024 6:50 AM CDT Oxygen Saturation 96% 06/19/2019 11:22 PM SQL SERVER DEVELOPER Inhaled Oxygen Concentration - - Weight 60.9 kg (134 lb 3.2 oz) 01/29/2024 7:35 A M CDT Height 162.6 cm (5' 4) 06/19/2019 8:51 PM SQL SERVER DEVELOPER Body Mass Index 23.04 06/19/2019 8:51 PM SQL SERVER DEVELOPER Plan of Treatment Health Maintenance Due Date [...] Procedure Name Priority Date/Time Associated Diagnosis Comments [facility] Routine 01/30/2024 8:25 AM CDT [...] DONAHUE Study Date: 01/30/2024 7:08am Pat. NO: [id number] Referring MD: ROSA BARBA Site: Nurse Infection Control: Vicky Alvarado RDMS : 2000 Age: 23 ----- INDICATION ----- Inpatient. labor. METHOD ----- [facility] ANTEPARTUM inpatient exam. Transabdominal ultrasound examination. View: [...] 5 lb 15 oz EFW by Hadlock ([id number]) Head / Face / Neck Biometry: Bull Driver 4.3 mm CM 6.3 mm Nasal bone 10.4 mm ANATOMY ----- The following structures appear normal: Head / Neck Cranium. Head size. Head shape. Lateral ventricles. Choroid plexus. Midline falx. Cavum septi pellucidi. Cerebellum. Cisterna magna. Parenchyma. Thalami. Vermis. Neck. Face Lips. Profile. Nose. Maxilla. Mandible. Orbits. Lens. Heart / Thorax 4-chamber view. RVOT view. LVOT view. 3-vessel view. 8-mkhftm-emqcsib view. Situs. Aortic arch view. Bicaval view. [...] DONAHUE Study Date: 01/30/2024 7:08am Pat. NO: [id number] Referring MD: ROSA BARBA Site: Nurse Infection Control: Vicky Alvarado RDMS : 2000 Age: 23 ----- INDICATION ----- Inpatient. labor. METHOD ----- [facility] ANTE[facility]UM inpatient exam. Transabdominal ultrasound examination.View: Sufficient [...] EFW (lb,oz) 5 lb 15oz EFW by Ney([id number]) Head / Face / Neck Biometry: Bull Driver 4.3mm CM 6.3mm Nasal bone 10.4mm ANATOMY ----- The following structures appear normal: Head / Neck Cranium. Head size. Head shape.Lateral ventricles. Choroid plexus. Midline falx. Cavum septi pellucidi.Cerebellum. Cisterna magna. Parenchyma. Thalami. Vermis. Neck. Face Lips. Profile. Nose. Maxilla.Mandible. Orbits. Lens. Heart / Thorax 4-chamber view. RVOT view. LVOT view.3-vessel view. 4-woapyq-lfkcjrc view. Situs. Aortic arch view. Bicavalview. Ductal [...] volume appeared normal. us Jessa Zacarias MD [facility] US ORDERABLES Edited Res ult - Final * (ABNORMAL) CBC with platelets (01/29/2024 10:06 AM CDT) [facility] WBC Count 9.9 4.0 - 11.0 [...] BLOOD ORDERABLES Final Res ult UR LABORATORY [facility] [address] [place] [address], Room [address] * Adult Type and Screen (01/29/2024 12:56 AM CDT) ABO/RH(D) O POS 01/29/2024 12:34 AM CDT UR BLOOD BANK Antibody Screen Negative Negative 01/29/2024 12:34 AM CDT UR BLOOD BANK SPECIMEN EXPIRATION DATE [id number] 01/29/2024 12:34 AM CDT UR BLOOD BANK Blood STRUCTURE OF RIGHT UPPER LIMB / Unknown Venipuncture / Unknown 01/29/2024 12:56 AM CDT 01/29/2024 1:02 AM CDT us Lev Alejandro MD LAB - BLOOD BANK TEST ORDER Fin al Result UR BLOOD BANK [facility] Blood Components Lab On license of [facility], Room [address] * (ABNORMAL) UA with Microscopic reflex [...] 01/29/2024 1:05 AM CDT UR LABORATORY Specific [place] Urine 1.009 1.003 - 1.035 01/29/2024 1:05 [...] URINE ORDERABLES Final Re sult UR LABORATORY [facility] On license of [facility], [address] [place] [address] * Chlamydia trachomatis/Neisseria gonorrhoeae by PCR (01/29/2024 12:38 AM CDT) Chlamydia Trachomatis Negative Negative 01/29/2024 11:09 AM CDT [facility] Comment: Negative for C. trachomatis rRNA by tire rebuilder mediated amplification. A negative result by tire rebuilder mediated amplification does not preclude the presence of infection because results are dependent on proper and adequate collection, absence of inhibitors and sufficient rRNA to be detected. Neisseria gonorrhoeae Negative Negative 01/29/2024 11:09 AM CDT [facility] Comment:Negative for N. gono rrhoeae rRNA by tire rebuilder mediated amplification. A negative result by tire rebuilder mediated amplification does not preclude the presence of C. trachomatis infection because results are dependent on proper and adequate collection, absence of inhibitors and sufficient rRNA to be detected. Swab CERVIX UTERI STRUCTURE / Unknown Non-blood Collection / Unknown 01/29/2024 12:38 AM CDT 01/29/2024 12:45 AM CDT us Lev Alejandro MD LAB - MICRO GENERAL ORDERABLES Final Result [facility] Inf. Diseases Diag. Lab [address] [facility], [address] [place] [phone] * (ABNORMAL) Wet prep (01/29/2024 [...] MICRO GENERAL ORDERABLES Final Result UR LABORATORY [facility] [address] [facility], [address] [place] [address], [facility] * Group B strep PCR (01/29/2024 12:38 [...] LABORATORY - 01/29/2024 8:46 PM CDT The [employer] Xpert GBS LB Assay, performed on the [employer], is a qualitative in vitro diagnostic [...] settings. The device is not intended for bvkrz-po-lxjl use. us Lev Alejandro MD LAB - MICRO GENERAL ORDERABLES Final Result [facility] Inf. Diseases Diag. Lab [address] [facility], [address] [place] [address], [facility] * HIV-1 Antibody (External Result) (07/27/2023 12:27 AM CDT) HIV 1&2 Antibody (External) Negative Nonreactive [facility] 07/27/2023 12:2 7 AM CDT us Patient Reported LAB - HIM EXTERNAL RESULT Final Result Performing Organization Address City/State/[facility] Co de Phone Number [facility] [address] [place] [address], [facility] [phone] from Last 3 Months or Most Recently Relevant to Health Maintenance Insurance [employer]ICE [facility] Advance Directives For more information, please contact: [phone] * Full Code (Latest Code Status on File) Date Activated Date Inactivated Comments 01/29/2024 12:33 AM 01/30/2024 11:44 AM All basic and advanced life-sustaining interventions are performed as appropriate Question Answer Comments Code status determined by: Discussion with patie nt/ legal decision maker Care Teams Supervisor Home Economics Relationship Specialty Start Date End Date Shalonda Barrett MD [facility] & [address] [address] PCP - General Family Medicine 01/29/24
--- OUTSIDE RECORDS SUMMARY | 2024-04-03 14:57 | XMS_ITS | Referral Summary ---
Author Organization [facility] Address [address] [place] [address] Care Team Providers Care Hydraulic Bull Riveter Operator Name Role Phone Elsewhere, Pcp Primary Care Provider Unavailabl e Source Comments Patient records contain information from all sites at [facility]. For routine questions regarding patient records, call [phone] during business hours, M-F 8:00 AM - 5:00 PM Central Time. Record requests for emergency care only can be directed to [phone] at any time.[facility] Encounters Date Type Department Care Team Description 03/03/2024 11:16 AM CDT - 03/03/2024 12:35 PM CDT Emergency [place] [facility] [address] [place] [phone] Nena Pepe APRN, C.N.P. Nausea (Primary Dx); Fever Of Unknown Origin; Otitis Media Suppurative Left; Mastitis Without Abscess Discharge Disposition: Home or Self Care 01/11/2024 5:07 PM CDT - 01/11/2024 6:48 PM CDT Emergency [place] [facility] [address] [place] [phone] Alvino Christianson P.A.-C., P.A. Pharyngitis Acute (Primary Dx) Discharge Disposition: Home or Self Care from Last 3 Months Allergies Active Allergy Reactions Criticality Noted Date Comments Ondansetron GI intolerance 06/08/2022 ODT and liquid forms only, cause n/v. Tolerates IV and oral pill formulations. Medications ckppjzh-Nt-otmg-FA (VINATE ONE) 60 mg iron-1 mg per tablet Take 1 tablet by mouth daily. Active ferrous sulfate (IRON ORAL) Take by mouth. Act colby ondansetron ODT (ZOFRAN-ODT) 4 mg disintegrating tablet DISSOLVE ONE TABLET BY MOUTH EVERY 8 HOURS NEEDED FOR NAUSEA AND VOMITING 07/27/19 Active SUMAtriptan (IMITREX) 50 mg tablet TAKE ONE TABLET BY MOUTH ONCE DAILY AT ONSET OF HEADACHE, MAY REPEAT WITH 1 TABLET AFTER 2 HOURS NEEDED -MAX OF 4 TABLETS PER 24 HOURS 08/02/19 Active docosahexaenoic acid 200 mg capsule Take by mouth. 07/27/19 24 Active promethazine (Phenergan) 25 mg tablet Take 1 tablet (25 mg total) by mouth every 6 (six) hours as needed for nausea or vomiting (Headache). 15 tablet 12/06/19 Active docusate sodium (Colace) 100 mg capsule [...] capsule by mouth daily. 30 capsule 03/03/20 24 024 Active Problems Problem Noted Date Diagnosed [...] drink = 0.6 oz pur e alcohol) [facility] Utilities Answer Date Recorded In [...] medical care, and heating? Somewhat hard 07/14/2022 [facility] [place] of Occupat ional Health - Occupational Stress [...] your living situation today? I have a [facility] place to live 08/17/2023 Education Answer [...] 23 AM CDT 03/03/2024 11:25 AM CDT us Nena Pepe APRN, C.N.P. LAB MICROBIOLOGY - G ENERAL ORDERABLES Final Result [facility] [address] [place] [address], [place] NPRG [facility] [address] [place] [address] * EXT Home SARS Coronavirus-2 (COVID-19) Antigen (03/03/2024 5:00 AM CDT) EXT Home SARS-CoV-2 Antigen Presumptive Negative Presumptive Negative OTHER (SPECIFY IN CERTIFIED HYPERBARIC TECHNOLOGIST) Swab 03/03/2024 5:00 AM CDT us Historical Provider LAB MICROBIOLOGY - GENERAL O RDERABLES Edited Result - Final OTHER (SPECIFY IN CERTIFIED HYPERBARIC TECHNOLOGIST) N/A from Last 3 Months Insurance [employer] Care Teams Hydraulic Bull Riveter Operator Relationship Specialty Start Date End Date Elsewhere, Pcp PCP - General 08/30/21
--- OUTSIDE RECORDS SUMMARY | 2024-04-03 14:57 | XMS_ITS | Encounter Summary ---
Author Organization [facility] Address [address] [place] [address] Care Team Providers Care Supervisor Gluing Name Role Phone Elsewhere, Pcp Primary Care Provider Unavailabl e Reason for Visit * Reason Comments Sore Throat Pt presents with sor e throat, fever, and GI upset that she woke up with today. Breast Pain Pt presents with L c logged duct since last night. Earache Encounter Details Date Type Department Care Team (Late st Contact Info) Description 03/03/2024 11:16 AM CDT - 03/03/2024 12:35 PM CDT Emergency [facility] [address] [place] [address] [phone] Nena Pepe, ARTURO, C.N.P. [address] [place] [address] [phone] Nausea (Primary Dx); Fever Of Unknown Origin; Otitis Media Suppurative Left; Mastitis Without Abscess Discharge Disposition: Home or Self Care Social History Tobacco Use Types Packs/Day Years Used Date Smoking Tobacco: Never Passive Smoke Exposure: Never Smokeless Tobacco: Never Alcohol Use Standard Drinks/Week Comments No 0 (1 standard drink = 0.6 oz pur e alcohol) [facility] Utilities Answer Date Recorded In the past [...] medical care, and heating? Somewhat hard 07/14/2022 [facility] [place] [facility] Occupat ional Health - Occupational Stress [...] your living situation today? I have a [facility] place to live 08/17/2023 Education Answer [...] lb) 03/03/2024 11:2 0 AM CDT Height - - Body Mass Index 20.94 01/11/2024 5:00 PM CDT documented in this encounter Discharge Instructions * Discharge Instructions* Nena Pepe APRN, C.N.P. - 03/03/2024 12:18 PM CDT Continue alternating ibuprofen and acetaminophen as needed for comfort and or fever. Force fluids. Oral rehydration with Gatorade, liquid IV supplements, diluted fruit juices etc.. Mastitis is primarily an inflammatory disorder. Topical ice or roller if available. Continue to feed from the left breast as able. Or pump. Ondansetron as needed for nausea. Continue cautious monitoring. Follow-up with OBGYN primary care or return to urgent care if not gradually improving over the next1-3 days. To the emergency department with chills night sweats chest pain abdominal pain or any other emergent concern. * Attachments The following attachments cannot be sent through Care Everywhere. * Mastitis Xzau-zs-Iwkc (Angolan) * Otitis Media Adult Cxbo-za-Oxzo (Angolan) documented in this encounter Medications at Time of Discharge docusate sodium (Colace) 100 mg capsule TAKE ONE TO TWO CAPSULES BY MOUTH EVERY DAY NEEDED FOR CONSTIPATION 4 ferrous sulfate (IRON ORAL) Take by mouth. ibuprofen 600 mg tablet Take 1 tablet by mouth 4 (four) times a day with meals and bedtime. 4 SUMAtriptan (IMITREX) 50 mg tablet TAKE ONE TABLET BY MOUTH ONCE DAILY AT ONSET OF HEADACHE, MAY REPEAT WITH 1 TABLET AFTER 2 HOURS NEEDED -MAX OF 4 TABLETS PER 24 HOURS 4 docosahexaenoic acid 200 mg capsule Take by mouth. 4 ondansetron ODT (ZOFRAN-ODT) 4 mg disintegrating tablet DISSOLVE ONE TABLET BY MOUTH EVERY 8 HOURS NEEDED FOR NAUSEA AND VOMITING 4 zdrulpm-Nv-jwhm-FA (VINATE ONE) 60 mg iron-1 mg per tablet Take 1 tablet by mouth daily. promethazine (Phenergan) 25 mg tablet Take 1 tablet (25 mg total) by mouth every 6 (six) hours as needed for nausea or vomiting (Headache). 15 tablet 4 amoxicillin-pot clavulanate (Augmentin) 875-125 mg per tablet Take 1 tablet by mouth every 12 (twelve) hours for 5 days. 10 tablet 4 03/08/20 24 L.acidoph-B.animali s-B.longum (Florajen Digestion) 15 billion cell per capsule Take 1 capsule by mouth daily. 30 capsule 4 04/02/20 24 ondansetron ODT (Zofran-ODT) 4 mg disintegrating tablet Dissolve 1 tablet (4 mg total) in the mouth every 8 (eight) hours as needed for nausea or vomiting for up to 10 days. 20 tablet 4 03/13/20 24 documented as of this encounter Progress Notes * Nena Pepe, ARTURO, C.N.P. - 03/03/2024 12:08 PM CDT Images from the original note were not included. SUBJECTIVE CHIEF COMPLAINT / REASON FOR VISIT Sore Throat (Pt presents with sore throat, fever, and GI upset that she woke up with today. ), Breast Pain (Pt presents with L clogged duct since last night.), and Earache HISTORY OF PRESENT ILLNESS Deanna Garcia is a 23 y.o. female who presents for evaluation of generally not feeling well. All started a few days ago with a sore throat. Initially thought sore throat was related to dry environment as they live by filled which is chace. Sore throat persists. Developed a low-grade fever. T-max 101.1??. Treating with alternating ibuprofen and acetaminophen. Home COVID test negative. Presents today for further evaluation of fever, left breast tenderness, and upper respiratory symptoms of sore throat, minor cough, ear pain and congestion. Patient is 2 weeks delivery. . Pumping from the left breast tendernessis on the 2 and 10 o'clock position of the left breast. son does not want to feed from the left breast. No redness. No streaking reported. The following portions of the patient's history were reviewed and updated as appropriate: Allergies, current medications, medical history. REVIEW OF SYSTEMS Pertinent items are noted in HPI; all other review of systems was negative. OBJECTIVE VITAL SIGNS BP 115/69 (BP Location: Right arm, Patient Position: Sitting) Pulse (!) 125 Comment: fever present, tylenol given in triage Temp (!) 38.3 ??C (Temporal) Resp 20 Wt 55.3 kg LMP 04/06/2023 (Exact Date) SpO2 98% Unknown BMI 20.94 kg/m?? PHYSICAL EXAMINATION Vitals and nursing note reviewed. Constitutional General: She is in acute distress (Chills.). Appearance: She is ill-appearing (Febrile.). She is not toxic-appearing or diaphoretic. HENT Head: Normocephalic. Right Ear: Tympanic membrane normal. Left Ear: Tympanic membrane is erythematous and bulging. Nose: Rhinorrhea present. Mouth/Throat: Mouth: Mucous membranes are dry. Pharynx: Posterior oropharyngeal erythema (Posterior oropharynx injected. Erythemic. Uvula is active with phonation. Membranes are dry. Lips are cracked.) present. Eyes Pupils: Pupils are equal, round, and reactive to light. Cardiovascular Rate and Rhythm: Tachycardia present. Heart sounds: Normal heart sounds. Pulmonary Effort: Pulmonary effort is normal. Breath sounds: Normal breath sounds. No wheezing. Chest Comments: On exam left breast is symmetrical to the right breast. Tender to palpation at the 2:00 a.m. and 10:00 a.m. positions. No erythemic. No abscess no fluctuation. No streaking. Nipples intact. Abdominal General: Abdomen is flat. Palpations: Abdomen is soft. Tenderness: There is no right CVA tenderness, left CVA tenderness, guarding or rebound. Musculoskeletal General: Normal range of motion. Cervical back: Normal range of motion and neck supple. No tenderness. Skin General: Skin is warm and dry. Coloration: Skin is pale. Neurological General: No focal deficit present. Mental Status: She is alert. Psychiatric Mood and Affect: Mood normal. DIAGNOSTICS Labs: Recent Results (from the past 24 hours) EXT Home SARS Coronavirus-2 (COVID-19) Antigen Collection Time: 03/03/24 5:00 AM Specimen: Swab Result Value EXT Home SARS-CoV-2 Antigen Presumptive Negative Group A Streptococcus PCR, Throat Collection Time: 03/03/24 11:23 AM Specimen: Throat; Swab Result Value Strep Group A, PCR, POCT Negative ASSESSMENT / PLAN Diagnosis Plan 1. Nausea Active 2. Fever Of Unknown Origin Active 3. Otitis Media Suppurative Left Active 4. Mastitis Without Abscess Active Patient has arrived in febrile chills condition. Given acetaminophen 1000 mg. Recheck of temperature 38.8??. Removed blankets. Had patient hydrate with oral sports drink. Condition improved. Temperature at discharge 37.6. Lips not dry and cracked at discharge. Membranes moist. Alternate ibuprofen and acetaminophen as needed for comfort. Patient does occasionally to tolerate ondansetron for nausea. Did give a prescription. Reviewed use and side effects of Augmentin. Including possibility of infant develop yeast infection. Reviewed signs and symptoms. Reviewed use and side effects of medication. I did elect to give an oral probiotic. Patient is to follow-up with OBGYN, primary care return to urgent care if symptoms fail to gradually improve, worsen or as needed for any new concerns. We did discuss strict return to care precautions including but not limited to fever chills night sweats abdominal pain chest pain or any other emergent concern. No further questions or concerns prior to discharge. Follow up as discussed and reviewed in AVS. Discharged from [facility] in improve stable condition. Accompanied with her significant other in 2 young children. Nena Pepe APRN, C.N.P. 03/03/24 1249 documented in this encounter Plan of Treatment Not on file documented as of this encounter Procedures Procedure Name Priority Date/Time Associated Diagnosis Comments GROUP A STREP PCR, THROAT Routine 03/03/2024 11:23 AM CDT EXTM HOME SARS CORONAVIRUS-2 (COVID-19) ANTIGEN, V Routine 03/03/2024 5:00 AM CDT documented in this encounter Results * Group A Streptococcus PCR, Throat (03/03/2024 11:23 AM CDT) Strep Group A, PCR, POCT Negative Negative 03/03/2024 11:27 AM CDT NPRG Swab (Throat) 03/03/2024 11: 23 AM CDT 03/03/2024 11:25 AM CDT us Nena Pepe APRN, C.N.P. LAB MICROBIOLOGY - G ENERAL ORDERABLES Final Result [facility] [address] [place] [address], [facility] [address] [place] [address] * EXT Home SARS Coronavirus-2 (COVID-19) Antigen (03/03/2024 5:00 AM CDT) EXT Home SARS-CoV-2 Antigen Presumptive Negative Presumptive Negative OTHER (SPECIFY IN ALARM FIELD TECHNICIAN) Swab 03/03/2024 5:00 AM CDT Historical Provider LAB MICROBIOLOGY - GENERAL O RDERABLES Edited Result - Final OTHER (SPECIFY IN ALARM FIELD TECHNICIAN) N/A documented in this encounter Visit Diagnoses Diagnosis Nausea- Primary Fever Of Unknown Origin Otitis Media Suppurative Left Mastitis Without Abscess documented in this encounter Administered Medications Inactive Administered Medications - up to 3 most recent administrations Medication Order MAR Action Action Date Dose Rate Site acetaminophen tablet 1,000 mg (TylenoL) 1,000 mg, oral, Once as needed, fever, temperature greater than or equal to 38 C, Starting on 03/03/24 at 1117, For 1 dose Given 03/03/2024 11:21 AM CDT 1,000 mg documented in this encounter Active and Recently Administered Medications Times are shown in CDT. PRN Medication Order 03/01/2024 03/02/2024 03/03/2024 acetaminophen tablet 1,000 mg (TylenoL) (COMPLETED)(Linked Group 1) 1,000 mg, oral, Once as needed, fever, temperature greater than or equal to 38 C, Starting on 03/03/24 at 1117, For 1 dose 1121 (Given - Provid er: Ting Ortiz R.N.) Linked Groups Order Group 1: acetaminophen tablet 1,000 mg (TylenoL) (COMPLETED)Jump to med 1,000 mg, oral, Once as needed, fever, temperature greater than or equal to 38 C, Starting on 03/03/24 at 1117, For 1 dose Or acetaminophen chewable tablet 960 mg (TylenoL) (COMPLETED) 960 mg, oral, Once as needed, fever, temperature greater than or equal to 38 C, Starting on 03/03/24 at 1117, For 1 dose, If unable to take tablets. Or acetaminophen solution 960 mg (TylenoL) (COMPLETED) 960 mg, oral, Once as needed, fever, temperature greater than or equal to 38 C, Starting on 03/03/24 at 1117, For 1 dose, If unable to take tablets or chewable tablets. Or acetaminophen suppository 650 mg (TylenoL) (COMPLETED) 650 mg, rectal, Once as needed, fever, temperature greater than or equal to 38 C, Starting on 03/03/24 at 1117, For 1 dose, If patient unable to tolerate oral dosage forms. documented in this encounter Care Teams Supervisor Gluing Relationship Specialty Start Date End Date Elsewhere, Pcp PCP - General 08/30/21 documented as of this encounter
--- OUTSIDE RECORDS SUMMARY | 2024-04-03 14:58 | XMS_ITS | Clinical Summary ---
Author Organization [facility] Address [place], [place] [address] Care Team Providers Care Sales Planning Manager Name Role Phone [facility], [facility] Primary Care Pr ovider Allergies No [...] Brother 1 Eran Thyroid Disease Brother 1 Eran Good Health [...] Comments Blood Pressure 118/72 06/30/2022 2:37 PM PARTS COORDINATOR Pulse 83 06/30/2022 2:37 PM PARTS COORDINATOR Temperature 36.9 C (98.4 F) 12/25/2021 4:00 PM CDT Respiratory Rate 16 12/25/2021 4:00 PM CDT Oxygen Saturation 98% 12/25/2021 4:00 PM CDT Inhaled Oxygen Concentration - - Weight 52.2 kg (115 lb) 06/30/2022 2:37 PM PARTS COORDINATOR Height 162.6 cm (5' 4) 12/25/2021 4:00 [...] season) 2024 Influenza for age 9-49 01/08/2024 , 03/15/2002 Pap test for age 21-65 03/24/2026 03/24/2023 Pneumococcal series for age 6-64 Aged Out 11/22/2001, 2000, 2000 No longer eligible based on patient's age to complete this topic Tdap Completed 12/25/2012 HPV series for age 9-26 Completed 02/21/20 19, 12/25/2012 Procedures Procedure Name Priority Date/Time Associated Diagnosis Comments JURY CONSULTANT THIN PREP PAP SCREEN IMAGED Routine 03/24/2023 12:00 PM PARTS COORDINATOR from Last 3 Months or Most Recently Relevant to Health Maintenance Results * JURY CONSULTANT THIN PREP PAP SCREEN IMAGED (03/24/2023 12:00 PM PARTS COORDINATOR) Case Report Gynecologic Cytology Report Case: [id number] Authorizing Provider: Harmony Colon Collected: 03/24/2023 1200 MD Lennie Ordering Location: [facility] Received: 03/28/2023 0124 First Screen: Nino Dimas Specimen: JURY CONSULTANT ThinPrep Vial Screening, Cervical 04/07/2023 1:26 PM PARTS COORDINATOR [facility] INTERPRETATION/ RESULT NEGATIVE FOR INTRAEPITHELIAL LESION OR MALIGNANCY (NIL) (none) 04/07/2023 1:26 PM PARTS COORDINATOR [facility] IMEN ADEQUACY Satisfactory for evaluation Endocervical component present 04/07/2023 1:26 PM PARTS COORDINATOR [facility] HPV REQUEST HPV not requested 2022 1:26 PM PARTS COORDINATOR [facility] Date of LMP 03/05/2023 04/07/2023 1:26 PM PARTS COORDINATOR [facility] Abnormal Pap or [place] Bx in last 5 years No 04/07/2023 1:26 PM PARTS COORDINATOR [facility] Menstrual Status Irregular Periods 04/07/2023 1:26 PM PARTS COORDINATOR [facility] [place] Bx Done Today No 04/07/2023 1:26 PM PARTS COORDINATOR [facility] Additional Information 04/07/2023 1:26 PM PARTS COORDINATOR [facility] Comment: Interpreted at [facility] - [address] [place] [id number] Automated Review Successful 04/07/2023 1:26 PM PARTS COORDINATOR [facility] Comment:Specimen processed s uccessfully by automated office services coordinator device, ThinPrep Imaging System, [employer] Note The pap test is a screening technique, not a diagnostic procedure. It is used primarily to screen for squamous cancers and precursor lesions. Published studies have shown that it is subject to both false negative and false positive results. The pap test should not be used as the sole means to diagnose or exclude pre-malignant and malignant lesions. 04/07/2023 1:26 PM PARTS COORDINATOR [facility] Other (Cervical) 03/24/2023 12:00 PM PARTS COORDINATOR 03/28/2023 4:55 PM PARTS COORDINATOR Harmony Colon MD PATHOLOGY/ CYTOLOGY [facility] [address] [place] [address], from Last 3 Months or Most Recently Relevant to Health Maintenance Care Teams Sales Planning Manager Relationship Specialty Start Date End Date Clinic, [facility] [address] [place] [address] PCP - General 12/19/23
== END 2024-04-03 14:55 | disposition home or self-care (01) ==
LOC: NFLDREF 14:55
PROVIDERS: PCP Family Medicine; Visit Provider Registered Nurse
DX: R79.89 Other specified abnormal findings of blood chemistry (principal); Z39.2 Encounter for routine postpartum follow-up
CPT/HCPCS: 84443

== ENCOUNTER 2024-04-24 13:32 | Outpatient (CLI) | payer MEDICAID, SELFPAY | END 2024-04-24 13:33 | disposition home or self-care (01) | LOC: NFLDREF 04-27 05:43 | PROVIDERS: PCP Family Medicine; Referring Provider Family Medicine; Visit Provider Registered Nurse | DX: Z01.84 Encounter for antibody response examination (principal) | CPT/HCPCS: 86787 ==

== ENCOUNTER 2024-09-04 14:37 | Outpatient (CLI) | payer MEDICAID, SELFPAY | END 2024-09-04 14:38 | disposition home or self-care (01) | PROVIDERS: PCP Family Medicine; Visit Provider Obstetrics & Gynecology | DX: L68.0 Hirsutism (principal); L70.9 Acne, unspecified; R10.2 Pelvic and perineal pain; R79.89 Other specified abnormal findings of blood chemistry | CPT/HCPCS: 80061; 82947; 83498; 83525; 84270; 84402; 84403; 84439; 84443; 87086 ==

== ENCOUNTER 2024-09-18 12:05 | Outpatient (CLI) | payer MEDICAID, SELFPAY ==
--- NOTE | 2024-09-18 12:15 | CRLHL7_ITS ---
For Patients: As a result of the Century Cures Act, medical imaging exams and procedure reports are released immediately into your electronic medical record. You may view this report before your referring provider. If you have questions, please contact your health care provider. CLINICAL HISTORY: Pelvic and perineal pain TECHNIQUE: 2D medel scale ultrasound. In addition color Doppler and spectral Doppler analysis was performed of the pelvis using a transabdominal and transvaginal approach. FINDINGS: The uterus measures 6.7 x 3.0 x 5.0 cm. No uterine fibroid. The endometrial lining appears normal and measures 3 mm in thickness. The right ovary measures 3.5 x 2.1 x 2.1 cm in size and the left ovary measures 2.5 x 1.4 x 1.9 cm. The ovaries demonstrate normal arterial and venous blood flow on color Doppler and spectral Doppler analysis. There are no suspicious fluid collections within the cul-de-sac. IMPRESSION: Unremarkable exam. No torsion or excess pelvic free fluid. No adnexal mass. Dictated by Omar Keen MD @ 09/18/2024 2:22:21 PM (Electronically Signed)
== END 2024-09-18 12:06 | disposition home or self-care (01) ==
LOC: US 12:06
PROVIDERS: PCP Family Medicine; Visit Provider Obstetrics & Gynecology
DX: R10.2 Pelvic and perineal pain (principal)
CPT/HCPCS: 76830; 76856; 93976

== ENCOUNTER 2024-10-25 08:53 | Outpatient (CLI) | payer MEDICAID, SELFPAY ==
--- OUTSIDE RECORDS SUMMARY | 2010-01-06 09:43 | XMS_ITS | Continuity of Care Document ---
Author Organization [facility] Address [address] [address] [place] [address] Phone Care Team Providers Care Windshield Repair Technician Name Role Phone Unavailable Unavailable Unavailable Allergies, Adverse Reactions, Alerts Substance Reaction Status Criticality No Known allergies Medications Medication Instructions Dosage Effective Dates (start - stop) Status Comments amoxicillin 250 mg/5 mL Oral Susp take 5 milliliter (250MG) by ORAL route three times a day for 2 weeks - Active clarithromycin 250 mg/5 mL Oral Susp take 5 milliliter (250MG) by ORAL route every 12 hours for 2 weeks - Active Prilosec 20 mg Cap take 1 capsule (20MG ) by ORAL route every day open and sprinkle - Active Procedures Procedure Date Ugi Endo; W/bx 1/mx Offic Cons New/estab Mod Routine Serum Collection [id number] Advance Directives Directive Yes / No Effective Date File Name No Information Encounters Encounter Description Practice Location Reason(s) For Visit Diagnoses Date Provider Providers Copied on Encounter [facility], [address] [address], [place], [place], [id number], [place] tel:[phone] [facility] No Information 0 No Information [facility], [address] [address], [place], [place], [id number], [place] tel:[phone] [facility] Procedures No Information 0 No Information Offic Cons New/estab Mod [facility], [address] [address], [place], [place], [id number], [place] tel:[phone] [facility] Abdominal pain (chief complaint) Fx of Celiac Disease (chief complaint) Periumbilic Pain Dec-0 5-201 0 No Information Family History Family Member Type Diagnosis Age At Onset Maternal aunt Problem (finding) celiac disease First degree family history Problem (finding) No history of Ulcerative Colitis First degree family history Problem (finding) Factor V lieden Maternal grandmother Problem (finding) Factor V lieden Maternal grandmother Problem (finding) celiac disease First degree family history Problem (finding) No histo ry of Crohn's First degree family history Problem (finding) Liver Ga llbladder Disease First degree family history Problem (finding) No history of Colon Rectal Cancer Maternal aunt Problem (finding) Factor V lieden Maternal grandmother Problem (finding) Thyroid disorde r First degree family history Problem (finding) celiac d isease Maternal aunt Problem (finding) Factor V lieden First degree family history Problem (finding) HypoGlyc emia First degree family history Problem (finding) No Family history of No history of Colon Polyps Maternal grandmother Problem (finding) Lymphoma Maternal aunt Problem (finding) celiac disease Payers Payer name Insurance type Covered libertarian ID Authoriza tion(s) [employer] [facility] [id number] Social History Type Description Quantity Date Captured Comments Sex Female Smoking Status No Information Chief Complaint And Reason For Visit No Information Reason For Referral Reason For Referral No Information History Of Present Illness Encounter Date Complaint History Of Prese nt Illness No Information Functional Status Date Functional Assessmen t No Information Instructions Date Instruction Additional Infor mation No Information Assessments Type Assessment Date No Information Patient Care Teams Name Effective Dates (start - stop) Status Members No Information
--- NOTE | 2024-10-25 09:15 | CRLHL7_ITS ---
For Patients: As a result of the Century Cures Act, medical imaging exams and procedure reports are released immediately into your electronic medical record. You may view this report before your referring provider. If you have questions, please contact your health care provider. INDICATION: Pelvic and perineal pain TECHNIQUE: Multiplanar imaging of the abdomen was performed without and with 20 cc of gadolinium contrast material IV. COMPARISON: Today`s pelvic MRI and abdomen/pelvis CT of 04/09/2021 FINDINGS: The liver is normal in size, shape and signal. No abnormal contrast enhancement is demonstrated in the liver. The bile ducts are normal in caliber. The spleen, adrenal glands and pancreas are within normal limits. The kidneys are unremarkable. No lymphadenopathy is apparent. No intrinsic bowel abnormality is evident. No free fluid is demonstrated. IMPRESSION: Negative MRI of the abdomen Dictated by Young Mendoza MD @ 10/26/2024 3:11:24 PM (Electronically Signed)
--- NOTE | 2024-10-25 10:15 | CRLHL7_ITS ---
For Patients: As a result of the Century Cures Act, medical imaging exams and procedure reports are released immediately into your electronic medical record. You may view this report before your referring provider. If you have questions, please contact your health care provider. INDICATION: Pelvic and perineal pain TECHNIQUE: Multiplanar imaging of the pelvis was performed without and with 20 cc of gadolinium contrast material IV. COMPARISON: Today`s abdomen MRI and the abdomen/pelvis CT of 04/09/2021 FINDINGS: The uterus is normal is size, shape and signal. A scar is noted. No mass is evident. The endometrial stripe thickness is within normal limits at roughly 4 mm. The junctional zone thickness is within normal limits at 5 mm. The ovaries are normal in size and shape. Multiple follicles are demonstrated in both ovaries. No free fluid is demonstrated. The visualized bowel is unremarkable. No lymphadenopathy or other abnormality is demonstrated. IMPRESSION: Negative MRI of the pelvis. Dictated by Young Mendoza MD @ 10/26/2024 3:18:38 PM (Electronically Signed)
--- OUTSIDE RECORDS SUMMARY | 2024-10-26 00:41 | XMS_ITS | Clinical Summary ---
Author Organization [facility] Address [address] [place] [address] Care Team Providers Care Doctor Chiropractic Name Role Phone Pcp, No Primary Care Provider Unavailabl e Allergies No known active allergies Medications ondansetron (ZOFRAN) 4 mg tabletIndicatio ns:Pyelonephrit is Take 2 Tablets (8 mg) by mouth every 8 hours if needed for Nausea/Vomit ing. 10 Tablet 12/25/2021 Active omeprazole (PRILOSEC) 40 [...] Encounters Date Type Department Care Team Description 09/07/2024 Transcribe Orders [address] [place] [id number] Susie Almanza MD from Last 3 Months Immunizations Immunization Administration Dates Next Due DTaP 09/08/2004, 2,02/22/2001,12/23,2000 [...] Relation Name Comments Bipolar disorder Brother 1 [place] Thyroid Disease Brother 1 Eran Good Health [...] Answer Date Recorded PHQ-2 Score 1 02/20/2019 Comments No Sex and Gender Information Value Date Recorded Sex Assigned at Not on file Legal Sex Female 5:18 AM ROD PULLER AND COILER Gender Identity Not on file Sexual Orientation Not on file Occupation Industry Job Start Date Job End Date 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 Not on file Not on file Not on file Obstetrics History Para Term AB IAB SAB Ectopic Multiple Livin g Live Births 0 0 0 0 0 0 0 0 0 0 Last Filed Vital Signs Vital Sign Reading Time Taken Comments Blood Pressure 118/72 06/30/2022 2:37 PM ROD PULLER AND COILER Pulse 83 06/30/2022 2:37 PM ROD PULLER [employer] COILER Temperature 36.9 C (98.4 F) 12/25/2021 4:00 PM CDT Respiratory Rate 16 12/25/2021 4:00 PM CDT Oxygen Saturation 98% 12/25/2021 4:00 PM CDT Inhaled Oxygen Concentration - - Weight 52.2 kg (115 lb) 06/30/2022 2:37 PM ROD PULLER [employer] COILER Height 162.6 cm (5' 4) 12/25/2021 4:00 PM CDT Body Mass Index 19.74 12/25/2021 4:00 PM CDT Plan of Treatment Upcoming Encounters Date Type Department Care Team (Late st Contact Info) Description 01/16/2025 11:00 AM CDT Office Visit [facility] [address] [place] [address] Saima Ramon MS, [facility] [address] [address] Health Maintenance Due Date Last Done Comments HIV for age 15-65 08/23/2015 Hepatitis C screening for age 18-79 2018 BMI (ht and wt on same day) for age 18+ 02/21/2020 02/20/2019, 01/31/2019 Depression screening for age 12+ 02/21/2020 02/20/2019 Tetanus booster 12/25/2022 12/25/2012 COVID-19 vaccine series ( season) 2024 Influenza Vaccine (Season Ended) 2025 02/19/2019, 03/15/2002 Pap test for age 21-65 03/24/2026 03/24/2023 Hepatitis B series for 19+ Completed 11/22, 11/22/2001, 2000, Additional history exists Pneumococcal series for age 6-49 Aged Out 11/22/2001, 2000, 2000 No longer eligible based on patient's age to complete this topic Tdap Completed 12/25/2012 HPV series for age 9-26 Completed 02/20/2019, 12/25 Procedures Procedure Name Priority Date/Time Associated Diagnosis Comments SHRIMP CLEANER THIN PREP PAP SCREEN IMAGED Routine 03/24/2023 12:00 PM ROD PULLER AND COILER from Last 3 Months or Most Recently Relevant to Health Maintenance Results * SHRIMP CLEANER THIN PREP PAP SCREEN IMAGED (03/24/2023 12:00 PM ROD PULLER AND COILER) Case Report Gynecologic Cytology Report Case: [id number] Authorizing Provider: Harmony Colon Collected: 03/24/2023 1200 MD Lennie Ordering Location: [facility] Received: 03/28/2023 9650 First Screen: Nino Dimas Specimen: SHRIMP CLEANER ThinPrep Vial Screening, Cervical 04/07/2023 1:26 PM ROD PULLER AND COILER [facility] INTERPRETATION/ RESULT NEGATIVE FOR INTRAEPITHELIAL LESION OR MALIGNANCY (NIL) (none) 04/07/2023 1:26 PM ROD PULLER AND COILER [facility] at 1326 ROD PULLER AND COILER SPECIMEN ADEQUACY Satisfactory for evaluation Endocervical component present 04/07/2023 1:26 PM ROD PULLER AND COILER [facility] HPV REQUEST HPV not requested 2022 1:26 PM ROD PULLER AND COILER [facility] Date of LMP 03/05/2023 04/07/2023 1:26 PM ROD PULLER AND COILER [facility] Abnormal Pap or Galliano Bx in last 5 years No 04/07/2023 1:26 PM ROD PULLER AND COILER [facility] Menstrual Status Irregular Periods 04/07/2023 1:26 PM ROD PULLER AND COILER [facility] Galliano Bx Done Today No 04/07/2023 1:26 PM ROD PULLER AND COILER [facility] Additional Information 04/07/2023 1:26 PM ROD PULLER AND COILER [facility] Comment: Interpreted at [facility] - [address], [place] [address] Automated Review Successful 04/07/2023 1:26 PM ROD PULLER AND COILER [facility] Comment:Specimen processed s uccessfully by automated electric blanket packer device, ThinPrep Imaging System, [employer] Note The pap test is a screening technique, not a diagnostic procedure. It is used primarily to screen for squamous cancers and precursor lesions. Published studies have shown that it is subject to both false negative and false positive results. The pap test should not be used as the sole means to diagnose or exclude pre-malignant and malignant lesions. 04/07/2023 1:26 PM ROD PULLER AND COILER [facility] Other (Cervical) 03/24/2023 12:00 PM ROD PULLER AND COILER 03/28/2023 4:55 PM ROD PULLER AND COILER Harmony Colon MD PATHOLOGY/CYTOLOGY Final Result [facility] [address] [place] [address], from Last 3 Months or Most Recently Relevant to Health Maintenance Insurance [facility] Care Teams Doctor Chiropractic Relationship Specialty Start Date End Date Pcp, No . PCP - General 05/15/24
--- OUTSIDE RECORDS SUMMARY | 2024-10-26 00:41 | XMS_ITS | Clinical Summary ---
Author Organization [facility] Address [address] [place] [address]. [place] [address] Care Team Providers Care Cook Manager Name Role Phone Shalonda Barrett MD [...] 01/29/2024 with history of section, ante 01/29/2024 Social History Tobacco Use Types Packs/Day Years [...] permanent housing and does not include staying outside in a car, in a tent, in [...] by your partner or ex-partner? 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 Inhaled Oxygen Concentration - - Weight 60.9 kg (134 lb 3.2 oz) 01/29/2024 7:35 A M CDT Height 162.6 cm (5' 4) 06/19/2019 8:51 PM 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 Body Mass Index 23.04 06/19/2019 8:51 PM 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 Plan of Treatment Health Maintenance Due Date Last Done Comments ADVANCE CARE PLANNING 2000 ANNUAL REVIEW OF HM ORDERS 2000 YEARLY PREVENTIVE VISIT 08/23/2003 HEPATITIS C SCREENING 2018 COVID-19 VACCINE ( season) 2024 PHQ-2 (once per calendar year) 2024 INFLUENZA VACCINE (Season Ended) 2025 02/19/2019, 03/15/2002 CHLAMYDIA SCREENING 01/28/2025 01/29/2024 PAP 03/24/2026 03/24/2023 DTAP/TDAP/TD VACCINE (9 - Td or Tdap) 12/27/2033 12/28/2023, 11/29/2019, 12/25/2012, Additional history exists ZOSTER VACCINE (1 of 2) 2050 HEPATITIS B VACCINE Completed 11/22/2001, 11/22/2001, 2000, Additional history exists PNEUMOCOCCAL VACCINE: PEDIATRICS (0 to 5 YEARS) AND AT-RISK PATIENTS (6 to 49 YEARS) Aged Out 11/22/2001, 2000, 2000 No longer eligible based on patient's age to complete this topic HPV VACCINE Completed 02/20/2019, 12/25/2012 MENINGITIS VACCINE Completed 02/20/2019 HIV SCREENING Completed 07/27/2023 MENINGITIS B VACCINE Aged Out No long er eligible based on patient's age to complete this topic Procedures Procedure Name Priority Date/Time Associated Diagnosis Comments CHLAMYDIA TRACHOMATIS/NEISSERI A GONORRHOEAE BY PCR STAT 01/29/2024 12:38 AM CDT HIV 1&2 ANTIBODY (EXTERNAL RESULT) Routine 07/27/2023 12:27 AM CDT from Last 3 Months or Most Recently Relevant to Health Maintenance Results * Chlamydia trachomatis/Neisseria gonorrhoeae by PCR (01/29/2024 12:38 AM CDT) Chlamydia Trachomatis Negative Negative 01/29/2024 11:09 AM CDT [facility] Comment: Negative for C. trachomatis rRNA by form builder helper mediated amplification. A negative result by form builder helper mediated amplification does not preclude the presence of infection because results are dependent on proper and adequate collection, absence of inhibitors and sufficient rRNA to be detected. Neisseria gonorrhoeae Negative Negative 01/29/2024 11:09 AM CDT [facility] Comment:Negative for N. gono rrhoeae rRNA by form builder helper mediated amplification. A negative result by form builder helper mediated amplification does not preclude the presence of C. trachomatis infection because results are dependent on proper and adequate collection, absence of inhibitors and sufficient rRNA to be detected. Swab CERVIX UTERI STRUCTURE / Unknown Non-blood Collection / Unknown 01/29/2024 12:38 AM CDT 01/29/2024 12:45 AM CDT us Lev Alejandro MD LAB - MICRO GENERAL ORDERABLES Final Result [facility] Inf. Diseases Diag. Lab [address] [facility], [address] [place] [address] * HIV-1 Antibody (External Result) (07/27/2023 12:27 AM CDT) HIV 1&2 Antibody (External) Negative Nonreactive [facility] 07/27/2023 12:2 7 AM CDT us Patient Reported LAB - HIM EXTERNAL RESULT Final Result [facility] [address] [phone] from Last 3 Months or Most Recently Relevant to Health Maintenance Insurance [employer] [facility] Advance Directives For more information, please contact: [phone] * Full Code (Latest Code Status on File) Date Activated Date Inactivated Comments 01/29/2024 12:33 AM 01/30/2024 11:44 AM All basic and advanced life-sustaining interventions are performed as appropriate Question Answer Comments Code status determined by: Discussion with camilo nt/ legal decision maker Care Teams Cook Manager Relationship Specialty Start Date End Date Shalonda Barrett MD [facility] & [address] [phone] PCP - General Family Medicine 01/29/24
--- OUTSIDE RECORDS SUMMARY | 2024-10-26 00:41 | XMS_ITS | Patient Health Record ---
Author Organization [facility] Address [address] [place] [id number] Care Team Providers Care Sprinkler Driver Name Role Phone MARIA E APARICIO Unavailable [phone] Allergies No Known Allergies Reason For Referral No Information Medications Medication SIG (Take, Route, Frequency, Duration) Notes Start Date End Date Status Nortriptyline HCl 10 MG 1 capsule by avery th at bedtime Active Medical Cannabis Act colby Rizatriptan Benzoate 10 MG 1 tablet by m outh at onset of migraine Active Social History Tobacco Use: Social History Observation Description Date Details (start date - stop date) Never Smoker NA - NA Tobacco Use/Smoking Question Answer Notes Are you a nonsmoker Alcohol Screen (Audit-C) Question Answer Notes Did you have a drink containing alcohol in the p ast year? No Points 0 Interpretation Negative Section Notes: No illegal drug use, single, high school education, not working, not currently , no hx of abuse No illegal drug use, single, high school education, not working, not currently , no hx of abuse No illegal drug use, single, high school education, not working, not currently , no hx of abuse No illegal drug use, single, high school education, not working, not currently , no hx of abuse No illegal drug use, single, high school education, not working, not currently , no hx of abuse No illegal drug use, single, high school education, not working, not currently , no hx of abuse No illegal drug use, single, high school education, not working, not currently , no hx of abuse Problems Problem Type SNOMED Code ICD Code Onset Dates Problem Status W/U Status Risk Notes Problem 92298521 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 confirmed Problem 140520135 Dysmenorrhea (N94.6) Active confirmed Problem 06607253 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 confirmed Problem 79250188 Other chronic pain (G89.29) Active confirmed Problem 972960294 History of thyroid disease (Z86.39) Active confirmed Plan Of Treatment Pending Test Test Name Order Date Brain W 08/14/2020 Future Test Test Name Order Date ESTRADIOL 10/29/2020 PROGESTERONE 10/29/2020 DHEA SULFATE 10/29/2020 FERRITIN 10/29/2020 T4, FREE 10/29/2020 CORTISOL, AM 10/29/2020 TSH 10/29/2020 T3, FREE 10/29/2020 QUESTASSURED 25-OH VIT D, (D2,D3), LC/MS /MS 10/29/2020 TESTOSTERONE,FR(DIALYSIS) AND TOTAL(LC/M S/MS) 10/29/2020 Insurance Providers Payer Name Payer Address Payer Phone Subscriber Number Group Number Insured Name Patient Relationship to Insured Coverage Start Date Coverage End Date [employer] [place] Product [address] [place], [place] [id number] Deanna Carrizales Self - patient is the insured Medical (General) History Medical History History ICD Code headaches migraines Surgical History Surgery Date(Month/Year) C section 02/01/2020 Hospitalization History Reason Date(Month/Year) C section 02/01/2020
== END 2024-10-25 08:54 | disposition home or self-care (01) ==
LOC: MRI 08:53
PROVIDERS: PCP Family Medicine; Visit Provider Obstetrics & Gynecology
DX: R10.2 Pelvic and perineal pain (principal); R10.33 Periumbilical pain
CPT/HCPCS: 72197; 74183; A9575

== ENCOUNTER 2025-03-21 14:38 | Outpatient (CLI) | payer MEDICAID, SELFPAY | END 2025-03-21 14:39 | disposition home or self-care (01) | PROVIDERS: PCP Family Medicine; Visit Provider Family Medicine | DX: D50.9 Iron deficiency anemia, unspecified (principal) | CPT/HCPCS: 82728; 83540; 83550 ==

== ENCOUNTER 2025-04-12 10:47 | Day surgery (SDC) | payer MEDICAID, SELFPAY ==
[2025-04-12] VITALS (13 sets, daily range): BP systolic 88–112; BP diastolic 46–69; PULSE 64–88; RESP 16; TEMP 36.4–37.3; O2SAT 98–100; BMI 23.0
[2025-04-12] MEDS: LACTATED RINGERS 1000 ML 1,000 ML 100 ML IV ×2 (11:00→14:44)
[2025-04-12] MEDS: SODIUM CHLORIDE 0.9 % (FLUSH) 10 ML SYRINGE IVF (11:36)
[2025-04-12 11:38] LABS: Hemoglobin* 12.9 gm/dL (12.0-16.0)
[2025-04-12 11:39] LABS: Ur HCG Qualitative* Negative (Negative)
--- NOTE | 2025-04-12 12:42 | W.PM.H&PU ---
History & Physical Update History & Physical Update H&P Reviewed and patient assessed: No changes noted
[2025-04-12] MEDS: BUPIVACAINE 0.25% 30 ML INJECTION (13:15)
--- NOTE | 2025-04-12 14:52 | P.ANES_ITS ---
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
--- NOTE | 2025-04-12 14:52 | W.ANESCHARGE ---
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
--- NOTE | 2025-04-12 14:58 | P.GYNPRC_ITS ---
Procedure Note Date of procedure: 04/12/25 Will [facility] bill your pro fee for this procedure?: Yes Pre-op diagnosis: Chronic pelvic pain Post-op diagnosis: Chronic pelvic pain Procedure: Diagnostic laparoscopy, pelvic biopsies, lysis of adhesions Anesthesia: GETA Complications: None Surgeon: Mariah Almanza MD Estimated blood loss (mL): 10 IV fluids (mL): 1,000 Urine Output (mL): 200 Pathology: specimen obtained, sent to pathology (a. left pelvic sidewall biopsy b. right uterosacral ligament biopsy c. left broad ligament biopsy d. posterior uterine wall biopsy) Condition: stable Disposition: same day Findings: Normal external genitalia. Speculum exam: grossly normal cervix, no gross lesions or abnormal discharge. Intra abdominal survey: Spleen noted upon survey of abdomen. Otherwise, grossly normal liver, stomach, gallbladder and appendix. Previous section scar adhesion to bladder peritoneum. Posterior left side adhesions of sigmoid epiploica to the left pelvic side wall. Grossly normal bilateral fallopian tubes. Bilateral ovaries enlarged but w/o dominant cystic structure. Clear vesicular lesion on the right uterosacral ligament. Yellowish nodular lesion on the left broad ligament. Procedure Description: Patient was taken to the OR with IV fluid running and pneumatic compression stockings applied to the lower extremities. General anesthesia was obtained without difficulty. The patient was placed in the dorsal lithotomy position with Geovany type stirrups with knee bent at 30 degree angles. Patient was prepared and draped under usual sterile technique. Examination under anesthesia as above. The bladder was emptied and Keita catheter placed. Speculum was placed in the vagina. The anterior lip of the cervix was grasped with a single- tooth tenaculum. Uterine manipulator was introduced. I then changed gloves and attention was placed to the abdomen. Two Allis clamps were applied to the periumbilical skin for manual elevation of the abdomen. A vertical skin incision was made in the umbilical fold. 5 mm Optiview trocar introduced into the peritoneal cavity without difficulty. Direct visualization confirmed intraperitoneal placement. Pneumoperitoneum was established with CO2 gas to a pressure of 15mmHg. Findings as above. An intra-abdominal survey revealed normal-appearing liver, gallbladder, spleen, and lack of any visceral or vascular injury. The Trendelenburg position was obtained to facilitate pelvic exposure. Two 5 mm trocars were inserted on the bilateral lower quadrants and an additional 5mm port was also inserted about 5-6cm to the left at the level of the umbilicus under direct laparoscopic visualization. Pictures taken for documentation purposes. Bilateral ureters identified to be coursing in the usual anatomic fashion. Utilizing laparoscopic [place] and scissors the left sigmoid epiploica adhesion to the left pelvic side wall was released and a biopsy taken. Additional pelvic biopsies taken in a similar manner utilizing [place] and laparoscopic sheer scissors. Pelvis thoroughly irrigated and inspected. Hemostasis secured with combination of monopolar energy-only needed on the left broad ligament biopsy, otherwise Junaid utilized over all resection sites and hemostasis secured. Trocars then removed under direct visualization. All instruments were removed from the abdomen and vagina. The pneumoperitoneum was released, and correct instrument counts were confirmed. Umbilical incision site the fatty layer approximated with Vicryl 3-0 in a figure of 8. Skin incisions were closed with 4-0 Monocryl sutures in a subcuticular fashion. The patient was taken to the recovery room in a stable condition. Patient will be discharged from recovery after all the criteria are met for discharge. She was given instructions regarding follow-up visit in 2 weeks at the [facility]. Postop pain management, lifting restrictions, intercourse restrictions were discussed with patient before surgery all questions were answered.
--- NOTE | 2025-04-12 14:59 | P.ANES_ITS ---
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
--- NOTE | 2025-04-12 14:59 | W.ANESCHARGE ---
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
[2025-04-12] MEDS: ONDANSETRON 2 MG/ML inj 4 MG IVP (16:09)
[2025-04-12] MEDS: ACETAMINOPHEN 500 MG TABLET 1000 MG PO (16:27)
== END 2025-04-12 16:55 | disposition home or self-care (01) ==
LOC: OR 10:48
PROVIDERS: PCP Family Medicine; Visit Provider Obstetrics & Gynecology
PROC: (CPT 49320; principal; 2025-04-12 12:15)
DX: R10.20 Pelvic and perineal pain unspecified side (principal); G89.29 Other chronic pain; K66.0 Peritoneal adhesions (postprocedural) (postinfection)
CPT/HCPCS: 49321; 49329; 00840; 36415; 81025; 85018; A9270; J0665; J1100; J1885; J2405; J2704; J2710; J3010; J3490; J7120